=== PATIENT | male | born 1940 | race Caucasian/White ===

== ENCOUNTER → 2017-12-24 10:33 | Outpatient (CLI) | payer MEDICARE, OTHER, SELFPAY ==
[2017-12-24 12:24] LABS: Anion Gap 10 (5-15); BUN 27 mg/dL (7-18); BUN/Creat Ratio 26.2 RATIO (10-20); Chloride 106 mmol/L (98-107); Cholesterol 135 mg/dL (200); Creatinine, Serum 1.03 mg/dL (0.70-1.30); EST Glomerular Filtration Rate 74 mL/min (>60); Est Glom Filt Rate - Afr Amer 90 mL/min (>60); Glucose 137 mg/dL (74-106); High Density Lipoprotein 35 mg/dL; Potassium 4.6 mmol/L (3.5-5.1); Sodium Level 142 mmol/L (136-145); Triglycerides 197 mg/dL; Very Low Density Lipoprotein 39 mg/dL (5-40)
== END ==
PROVIDERS: Family Provider Family Medicine; PCP Family Medicine; Visit Provider Family Medicine
DX: E11.9 Type 2 diabetes mellitus without complications (principal)
CPT/HCPCS: 36415; 80048; 80061

== ENCOUNTER 2018-06-03 09:00 | Outpatient (RCR) | payer MEDICARE, OTHER, SELFPAY ==
[2018-05-20 10:08] VITALS: BP 124/67; PULSE 18; RESP 18; TEMP 37; BMI 43.0
--- NOTE | 2018-05-20 11:03 | PCM.WC.HP ---
(1) Decubitus ulcer of right buttock, stage 2 Status: Acute Current Visit: Yes Code(s): L89.312 - Pressure ulcer of right buttock, stage 2 (2) Diabetes type 2, controlled Status: Acute Current Visit: Yes Qualifiers: Diabetes mellitus mcc insulin use: without mcc use Code(s): E11.9 - Type 2 diabetes mellitus without complications (3) Chronic pain disorder Status: Chronic Current Visit: Yes Code(s): G89.4 - Chronic pain syndrome (4) Osteoarthritis Status: Chronic Current Visit: Yes Code(s): M19.90 - Unspecified osteoarthritis, unspecified site History of Present Illness Chief Complaint: Follow-up on right buttocks ulcer History of Wound: This is a 77-year-old white obese male who has chronic pain issues on Mobic for his pain. 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 Still superficial and less than 0.1 in depth. Patient sits in a lounge chair and sleeps in his lounge chair all day long he is able to get up and walk but complains that he gets severe pain if he lays in a bed. Patient was not tolerant to laying flat on his left side for the dressings. Varicosities were apparent in the upper thigh and the buttocks area. The ulcer is near the anus on the right buttocks. Past Medical History Past Medical History: Chronic Problems Chronic pain disorder (Chronic) Osteoarthritis (Chronic) Past Medical History: Decubitus ulcer stage II buttocks Allergies/Adverse Reactions: Allergies naproxen [From Naprosyn] Allergy (Unknown, Verified 05/20/18 10:23) Unknown acetaminophen [From Vicodin] Allergy (Verified 05/20/18 10:26) Unknown codeine Allergy (Verified 05/20/18 10:27) Unknown hydrocodone [From Vicodin] Allergy (Verified 05/20/18 10:26) Unknown levofloxacin [From Levaquin] Allergy (Verified 05/20/18 10:26) Unknown sertraline [From Zoloft] Allergy (Verified 05/20/18 10:27) Unknown sulfamethoxazole Allergy (Verified 05/20/18 10:26) Unknown Home Medications: Ambulatory Orders Medication Instructions Recorded Lisinopril/Hydrochlorothiazide 1 tablet PO DAILY 05/20/18 [Zestoretic 20/12.5 Tablet] Meloxicam 15 mg PO DAILY 05/20/18 Metformin HCl [Glucophage] 500 mg PO BIDCM 05/20/18 Metoprolol Tartrate [Lopressor 50 mg PO BID 05/20/18 (Beta Gilbert)] Pravastatin [Pravachol] 80 mg PO QHS 05/20/18 Warfarin [Coumadin ([facility])] 3 mg PO DAILY 05/20/18 Smoking Status: Never smoker Review of Systems Constitutional: Denies: Chills, Fever Eyes: Denies: Blurred vision, Drainage, Pain HEENT: Denies: Difficulty Hearing, Difficulty Swallowing, Sore Throat, Visual Changes Cardiovascular: Denies: Chest Pain, Palpitations, Syncope Respiratory: Denies: Cough, Shortness of Breath Gastrointestinal: Denies: Abdominal Pain, Nausea, Vomiting Genitourinary: Denies: Dysuria, Frequency Musculoskeletal: Denies: Joint Pain, Muscle pain Skin: Reports: - - Decubitus ulcer right buttocks. Denies: Jaundice, Rash Neurological: Denies: Balance problems, Change in Speech, Difficulty swallowing, Focal weakness Psychiatric: Denies: Anxiety, Depression Endocrine: Denies: Change in Body Habitus Hematologic/ Lymphatic: Denies: Adenopathy - Physical Exam Vital Signs Temp Pulse Resp BP 98.6 F 18 L 18 124/67 H 05/20/18 10:08 05/20/18 10:08 05/20/18 10:08 05/20/18 10:08 General: Oriented x3, Cooperative, Well developed HEENT: Atraumatic, PERRLA Oral: Moist Mucosa Neck: Supple, No JVD Lungs: Clear to auscultation, Normal air movement Cardiovascular: Regular rate, Regular Rhythm Abdomen: Bowel Sounds Present, Soft, Non Tender, No Hepato-splenomegaly Extremities: No clubbing, No edema Skin: Ulcer/ Wound - Ulcer stage II right buttocks Wound Measurements and Assessment WC - Nurse 1 - General Ulcer Measurement Start: 05/20/18 10:07 Freq: Status: Active Protocol: Activity Type Activity Date Activity User E-Sign Co-Sign Detail Recorded Client Recorded Date Recorded By Document 05/20/18 10:08 [id number] 05/20/18 10:14 05/20/18 10:08 Wound Center Nurse 1 [Ulcer Assessment] #1- RT BUTTOCK -Combined with other wound No -Current Size (cm) - Length 0.7 -Current Size (cm) - Width 0.4 -Current Size (cm) - Depth 0.2 -Total Square Cm 0.28 -Date of Last Picture (Recall this 05/20/18 field) -Photo Taken Yes -Epithelialization None Present -Tunneling No -Undermining/Tunneling No -Circular Undermining No -Exudate Amt Small (1-33%) -Exudate Type Serosanguineous -Wound Margin Distinct, Outline Attached -Granulation Amt None Present (0 %) -Slough/Fibrin Yes -Necrosis Amt Large (67-100%) -Necrotic Tissue Type Adherent Slough -Texture (Yokasta-wound Skin Appearance) Scarring Rash -Moisture (Yokasta-wound Skin Appearance Dry/Scaly ) -Color (Yokasta-wound Skin Appearance) Erythema -Temperature (Y[place]asta-wound Skin No Abnormality Appearance) (Pt Warm) -Tenderness on Palpation (Yokasta-wound No Skin Appearance) -Ulcer Cleansing Rinsed/ Irrigated with Saline -Foul Odor after Cleansing No -Anesthetic Used 5% Lidocaine Gel WC - Nurse 2 - General Ulcer CM Notes Start: 05/20/18 10:07 Freq: Status: Active Protocol: Activity Type Activity Date Activity User E-Sign Co-Sign Detail Recorded Client Recorded Date Recorded By Document 05/20/18 10:27 MW [id number] 05/20/18 10:31 MW 05/20/18 10:27 Wound Center Nurse 2 [Procedure/Treatment] -Time 10:28 -Correct Patient Yes -Correct Side, Site, Position Yes -Correct Procedure Yes -Procedure Performed Yes -Type of Procedure Debridement -Clinical Debridement Subcutaneous -Post Debridement Size (cm) - Length 0.5 -Post Debridement Size (cm) - Width 0.5 -Post Debridement Size (cm) - Depth 0.1 -Total Square Cm 0.25 -Wound/Ulcer Outcome Not Healed -Ulcer Cleansing Rinsed/ Irrigated with Saline -Foul Odor after Cleansing No -Bioengineered Tissue No -Bleeding Controlled with Pressure -Offloading No -Treatment Response Procedure Tolerated Well [See Physician Procedure note for Specifics] Pain Scale: 0-10 Numeric [Pain] -Is Patient Pain Free? Yes Musculoskeletal: No Tenderness to Palpation of Joints or Extremities Lymphatic: No Cervical, Supraclavicular, or Inguinal Adenopathy Neurological: Cranial nerves II-XII grossly intact, Neuro grossly intact Psych/Mental Status: Normal Affect, Appropriate Debridement Note Post-Debridement Measurements/Treatment WC - Nurse 2 - General Ulcer CM Notes Start: 05/20/18 10:07 Freq: Status: Active Protocol: Activity Type Activity Date Activity User E-Sign Co-Sign Detail Recorded Client Recorded Date Recorded By Document 05/20/18 10:27 MW [id number] 05/20/18 10:31 MW 05/20/18 10:27 Wound Center Nurse 2 #1- RT BUTTOCK -Time 10:28 -Correct Patient Yes -Correct Side, Site, Position Yes -Correct Procedure Yes -Procedure Performed Yes -Type of Procedure Debridement -Clinical Debridement Subcutaneous -Post Debridement Size (cm) - Length 0.5 -Post Debridement Size (cm) - Width 0.5 -Post Debridement Size (cm) - Depth 0.1 -Total Square Cm 0.25 -Wound/Ulcer Outcome Not Healed -Ulcer Cleansing Rinsed/ Irrigated with Saline -Foul Odor after Cleansing No -Bioengineered Tissue No -Bleeding Controlled with Pressure -Offloading No -Treatment Response Procedure Tolerated Well Pain Scale: 0-10 Numeric Is Patient Pain Free? Yes Wound debrided: Buttocks Laterality: Right Wound Grade/Stage: Stage II Type of Debridement: Excisional debridement Anesthesia Used: 5% Lidocaine Gel Depth: Down to and including healthy tissue, in the subcutaneous layer Percentage of wound debrided: 100 Instrument Used: 3mm curette Tissue Removed: Fibrin and some slough Severity: Limited To Skin Breakdown Amount of bleeding with debridement: Mild Patient tolerated procedure well Assessment/Plan Pre-albumin Active Problems Decubitus ulcer of right buttock, stage 2 (Acute) Diabetes type 2, controlled (Acute) Chronic pain disorder (Chronic) Osteoarthritis (Chronic) Assessment: Cubitus ulcer right buttocks stage II. Osteoarthritis. Chronic pain syndrome. Obese Plan: Area with Hibiclens. Apply Xeroform dressing to the buttocks area cover with gauze and tape twice daily. Follow-up in 1 week. Order a pre-albumin on him
--- NOTE | 2018-05-20 11:08 | HP.PCM_ITS ---
(1) Decubitus ulcer of right buttock, stage 2 Status: Acute Current Visit: Yes Code(s): L89.312 - Pressure ulcer of right buttock, stage 2 (2) Diabetes type 2, controlled Status: Acute Current Visit: Yes Qualifiers: Diabetes mellitus half-way insulin use: without half-way use Code(s): E11.9 - Type 2 diabetes mellitus without complications (3) Chronic pain disorder Status: Chronic Current Visit: Yes Code(s): G89.4 - Chronic pain syndrome (4) Osteoarthritis Status: Chronic Current Visit: Yes Code(s): M19.90 - Unspecified osteoarthritis, unspecified site History of Present Illness Chief Complaint: Follow-up on right buttocks ulcer History of Wound: This is a 77-year-old white obese male who has chronic pain issues on Mobic for his pain. 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 Still superficial and less than 0.1 in depth. Patient sits in a lounge chair and sleeps in his lounge chair all day long he is able to get up and walk but complains that he gets severe pain if he lays in a bed. Patient was not tolerant to laying flat on his left side for the dressings. Varic osities were apparent in the upper thigh and the buttocks area. The ulcer is near the anus on the right buttocks. Past Medical History Past Medical History: Chronic Problems Chronic pain disorder (Chronic) Osteoarthritis (Chronic) Past Medical History: Decubitus ulcer stage II buttocks Allergies/Adverse Reactions: Allergies naproxen [From Naprosyn] Allergy (Unknown, Verified 05/20/18 10:23) Unknown acetaminophen [From Vicodin] Allergy (Verified 05/20/18 10:26) Unknown codeine Allergy (Verified 05/20/18 10:27) Unknown hydrocodone [From Vicodin] Allergy (Verified 05/20/18 10:26) Unknown levofloxacin [From Levaquin] Allergy (Verified 05/20/18 10:26) Unknown sertraline [From Zoloft] Allergy (Verified 05/20/18 10:27) Unknown sulfamethoxazole Allergy (Verified 05/20/18 10:26) Unknown Home Medications: Ambulatory Orders Medication Instructions Recorded Lisinopril/Hydrochlorothiazide 1 tablet PO DAILY 05/20/18 [Zestoretic 20/12.5 Tablet] Meloxicam 15 mg PO DAILY 05/20/18 Metformin HCl [Glucophage] 500 mg PO BIDCM 05/20/18 Metoprolol Tartrate [Lopressor 50 mg PO BID 05/20/18 (Beta Gilbert)] Pravastatin [Pravachol] 80 mg PO QHS 05/20/18 Warfarin [Coumadin ([facility])] 3 mg PO DAILY 05/20/18 Smoking Status: Never smoker Review of Systems Constitutional: Denies: Chills, Fever Eyes: Denies: Blurred vision, Drainage, Pain HEENT: Denies: Difficulty Hearing, Difficulty Swallowing, Sore Throat, Visual Changes Cardiovascular: Denies: Chest Pain, Palpitations, Syncope Respiratory: Denies: Cough, Shortness of Breath Gastrointestinal: Denies: Abdominal Pain, Nausea, Vomiting Genitourinary: Denies: Dysuria, Frequency Musculoskeletal: Denies: Joint Pain, Muscle pain Skin: Reports: - - Decubitus ulcer right buttocks. Denies: Jaundice, Rash Neurological: Denies: Balance problems, Change in Speech, Difficulty swallowing, Focal weakness Psychiatric: Denies: Anxiety, Depression Endocrine: Denies: Change in Body Habitus Hematologic/ Lymphatic: Denies: Adenopathy - Physical Exam Vital Signs Temp Pulse Resp BP 98.6 F 18 L 18 124/67 H 05/20/18 10:08 05/20/18 10:08 05/20/18 10:08 05/20/18 10:08 General: Oriented x3, Cooperative, Well developed HEENT: Atraumatic, PERRLA Oral: Moist Mucosa Neck: Supple, No JVD Lungs: Clear to auscultation, Normal air movement Cardiovascular: Regular rate, Regular Rhythm Abdomen: Bowel Sounds Present, Soft, Non Tender, No Hepato-splenomegaly Extremities: No clubbing, No edema Skin: Ulcer/ Wound - Ulcer stage II right buttocks Wound Measurements and Assessment WC - Nurse 1 - General Ulcer Measurement Start: 05/20/18 10:07 Freq: Status: Active Protocol: Activity Type Activity Date Activity User E-Sign Co-Sign Detail Recorded Client Recorded Date Recorded By Document 05/20/18 10:08 [id number] 05/20/18 10:14 05/20/18 10:08 Wound Center Nurse 1 [Ulcer Assessment] #1- RT BUTTOCK -Combined with other wound No -Current Size (cm) - Length 0.7 -Current Size (cm) - Width 0.4 -Current Size (cm) - Depth 0.2 -Total Square Cm 0.28 -Date of Last Picture (Recall this 05/20/18 field) -Photo Taken Yes -Epithelialization None Present -Tunneling No -Undermining/Tunneling No -Circular Undermining No -Exudate Amt Small (1-33%) -Exudate Type Serosanguineous -Wound Margin Distinct, Outline Attached -Granulation Amt None Present (0 %) -Slough/Fibrin Yes -Necrosis Amt Large (67-100%) -Necrotic Tissue Type Adherent Slough -Texture (Yokasta-wound Skin Appearance) Scarring Rash -Moisture (Yokasta-wound Skin Appearance Dry/Scaly ) -Color (Yokasta-wound Skin Appearance) Erythema -Temperature (Yokasta-wound Skin No Abnormality Appearance) (Pt Warm) -Tenderness on Palpation (Yokasta-wound No Skin Appearance) -Ulcer Cleansing Rinsed/ Irrigated with Saline -Foul Odor after Cleansing No -Anesthetic Used 5% Lidocaine Gel WC - Nurse 2 - General Ulcer CM Notes Start: 05/20/18 10:07 Freq: Status: Active Protocol: Activity Type Activity Date Activity User E-Sign Co-Sign Detail Recorded Client Recorded Date Recorded By Document 05/20/18 10:27 MW [id number] 05/20/18 10:31 MW 05/20/18 10:27 Wound Center Nurse 2 [Procedure/Treatment] -Time 10:28 -Correct Patient Yes -Correct Side, Site, Position Yes -Correct Procedure Yes -Procedure Performed Yes -Type of Procedure Debridement -Clinical Debridement Subcutaneous -Post Debridement Size (cm) - Length 0.5 -Post Debridement Size (cm) - Width 0.5 -Post Debridement Size (cm) - Depth 0.1 -Total Square Cm 0.25 -Wound/Ulcer Outcome Not Healed -Ulcer Cleansing Rinsed/ Irrigated with Saline -Foul Odor after Cleansing No -Bioengineered Tissue No -Bleeding Controlled with Pressure -Offloading No -Treatment Response Procedure Tolerated Well [See Physician Procedure note for Specifics] Pain Scale: 0-10 Numeric [Pain] -Is Patient Pain Free? Yes Musculoskeletal: No Tenderness to Palpation of Joints or Extremities Lymphatic: No Cervical, Supraclavicular, or Inguinal Adenopathy Neurological: Cranial nerves II-XII grossly intact, Neuro grossly intact Psych/Mental Status: Normal Affect, Appropriate Debridement Note Post-Debridement Measurements/Treatment WC - Nurse 2 - General Ulcer CM Notes Start: 05/20/18 10:07 Freq: Status: Active Protocol: Activity Type Activity Date Activity User E-Sign Co-Sign Detail Recorded Client Recorded Date Recorded By Document 05/20/18 10:27 MW [id number] 05/20/18 10:31 MW 05/20/18 10:27 Wound Center Nurse 2 #1- RT BUTTOCK -Time 10:28 -Correct Patient Yes -Correct Side, Site, Position Yes -Correct Procedure Yes -Procedure Performed Yes -Type of Procedure Debridement -Clinical Debridement Subcutaneous -Post Debridement Size (cm) - Length 0.5 -Post Debridement Size (cm) - Width 0.5 -Post Debridement Size (cm) - Depth 0.1 -Total Square Cm 0.25 -Wound/Ulcer Outcome Not Healed -Ulcer Cleansing Rinsed/ Irrigated with Saline -Foul Odor after Cleansing No -Bioengineered Tissue No -Bleeding Controlled with Pressure -Offloading No -Treatment Response Procedure Tolerated Well Pain Scale: 0-10 Numeric Is Patient Pain Free? Yes Wound debrided: Buttocks Laterality: Right Wound Grade/Stage: Stage II Type of Debridement: Excisional debridement Anesthesia Used: 5% Lidocaine Gel Depth: Down to and including healthy tissue, in the subcutaneous layer Percentage of wound debrided: 100 Instrument Used: 3mm curette Tissue Removed: Fibrin and some slough Severity: Limited To Skin Breakdown Amount of bleeding with debridement: Mild Patient tolerated procedure well Assessment/Plan Pre-albumin Active Problems Decubitus ulcer of right buttock, stage 2 (Acute) Diabetes type 2, controlled (Acute) Chronic pain disorder (Chronic) Osteoarthritis (Chronic) Assessment: Cubitus ulcer right buttocks stage II. Osteoarthritis. Chronic pain syndrome. Obese Plan: Area with Hibiclens. Apply Xeroform dressing to the buttocks area cover with gauze and tape twice daily. Follow-up in 1 week. Order a pre-albumin on him
[2018-05-27 08:36] VITALS: BP 128/74; PULSE 106; RESP 18; TEMP 36.8; BMI 43.0
--- NOTE | 2018-05-27 09:56 | PCM.WC.PN ---
(1) Decubitus ulcer of right buttock, stage 2 Status: Acute Current Visit: Yes Code(s): L89.312 - Pressure ulcer of right buttock, stage 2 (2) Diabetes type 2, controlled Status: Acute Current Visit: Yes Qualifiers: Diabetes mellitus penitentiary insulin use: without penitentiary use Code(s): E11.9 - Type 2 diabetes mellitus without complications (3) Chronic pain disorder Status: Chronic Current Visit: Yes Code(s): G89.4 - Chronic pain syndrome (4) Osteoarthritis Status: Chronic Current Visit: Yes Code(s): M19.90 - Unspecified osteoarthritis, unspecified site Type of Wound Chief Complaint: Follow-up on right buttocks ulcer History of Wound: This is a 77-year-old white obese male who has chronic pain issues on Mobic for his pain. 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 Still superficial and less than 0.1 in depth. Patient sits in a lounge chair and sleeps in his lounge chair all day long he is able to get up and walk but complains that he gets severe pain if he lays in a bed. Patient was not tolerant to laying flat on his left side for the dressings. Varicosities were apparent in the upper thigh and the buttocks area. The ulcer is near the anus on the right buttocks. Progress of Wound: Today the stage II decubitus ulcer on the right buttocks is much smaller he states that it does not burn as much and the pain is much more tolerant. Healing well was 0.2 is down to 0.1 and dimensions are smaller no maceration noted. - Physical Exam Vital Signs Temp Pulse Resp BP 98.2 F 106 H 18 128/74 H 05/27/18 08:36 05/27/18 08:36 05/27/18 08:36 05/27/18 08:36 General: Oriented x3, Cooperative, Well developed HEENT: Atraumatic, PERRLA Oral: Moist Mucosa Neck: Supple, No JVD Lungs: Clear to auscultation, Normal air movement Cardiovascular: Regular rate, Regular Rhythm Abdomen: Bowel Sounds Present, Soft, Non Tender, No Hepato-splenomegaly Extremities: No clubbing, No edema Skin: Ulcer/ Wound - Decubitus ulcer stage II right buttocks Wound Measurements and Assessment WC - Nurse 1 - General Ulcer Measurement Start: 12/14/18 10:07 Freq: Status: Active Protocol: Activity Type Activity Date Activity User E-Sign Co-Sign Detail Recorded Client Recorded Date Recorded By Document 05/27/18 08:36 CS [id number] 05/27/18 08:38 CS 05/27/18 08:36 Wound Center Nurse 1 [Ulcer Assessment] #1- RT BUTTOCK -Combined with other wound No -Current Size (cm) - Length 0.4 -Current Size (cm) - Width 0.4 -Current Size (cm) - Depth 0.1 -Total Square Cm 0.16 -Photo Taken No -Epithelialization None Present -Tunneling No -Undermining/Tunneling No -Circular Undermining No -Exudate Amt Small (1-33%) -Exudate Type Serosanguineous -Wound Margin Distinct, Outline Attached -Granulation Amt Large (67-100%) -Granulation Quality Pale [place] -Slough/Fibrin Yes -Necrosis Amt Small (1-33%) -Necrotic Tissue Type Adherent Slough -Texture (Yokasta-wound Skin Appearance) No Abnormality Assessed -Moisture (Yokasta-wound Skin Appearance No Abnormality ) Assessed -Color (Yokasta-wound Skin Appearance) Assessed -Temperature (Yokasta-wound Skin No Abnormality Appearance) (Pt Warm) -Tenderness on Palpation (Yokasta-wound No Skin Appearance) -Ulcer Cleansing Rinsed/ Irrigated with Saline -Foul Odor after Cleansing No -Anesthetic Used 4% Lidocaine Solution [Edema Assessment] -Lower Limb Edema Present NA - Nurse 2 - General Ulcer CM Notes Start: 05/20/18 10:07 Freq: Status: Active Protocol: Activity Type Activity Date Activity User E-Sign Co-Sign Detail Recorded Client Recorded Date Recorded By Document 05/27/18 08:52 MW [id number] 05/27/18 08:54 MW 05/27/18 08:52 Wound Center Nurse 2 [Procedure/Treatment] #1- RT BUTTOCK -Time 08:53 -Correct Patient Yes -Correct Side, Site, Position Yes -Correct Procedure Yes -Procedure Performed Yes -Type of Procedure Debridement -Clinical Debridement Subcutaneous -Post Debridement Size (cm) - Length 0.5 -Post Debridement Size (cm) - Width 0.4 -Post Debridement Size (cm) - Depth 0.1 -Total Square Cm 0.20 -Wound/Ulcer Outcome Not Healed -Ulcer Cleansing Rinsed/ Irrigated with Saline -Foul Odor after Cleansing No -Bioengineered Tissue No -Bleeding Controlled with Pressure -Offloading No -Treatment Response Procedure Tolerated Well [See Physician Procedure note for Specifics] Pain Scale: 0-10 Numeric [Pain] -Is Patient Pain Free? No Musculoskeletal: No Tenderness to Palpation of Joints or Extremities Lymphatic: No Cervical, Supraclavicular, or Inguinal Adenopathy Neurological: Cranial nerves II-XII grossly intact, Neuro grossly intact Psych/Mental Status: Normal Affect, Appropriate Debridement Note Post-Debridement Measurements/Treatment WC - Nurse 2 - General Ulcer CM Notes Start: 05/20/18 10:07 Freq: Status: Active Protocol: Activity Type Activity Date Activity User E-Sign Co-Sign Detail Recorded Client Recorded Date Recorded By Document 05/20/18 10:27 MW [id number] 05/20/18 10:31 MW Document 05/27/18 08:52 MW [id number] 05/27/18 08:54 MW 05/20/18 05/27/18 10:27 08:52 Wound Center Nurse 2 #1- RT BUTTOCK -Time 10:28 08:53 -Correct Patient Yes Yes -Correct Side, Site, Position Yes Yes -Correct Procedure Yes Yes -Procedure Performed Yes Yes -Type of Procedure Debridement Debridement -Clinical Debridement Subcutaneous Subcutaneous -Post Debridement Size (cm) - Length 0.5 0.5 -Post Debridement Size (cm) - Width 0.5 0.4 -Post Debridement Size (cm) - Depth 0.1 0.1 -Total Square Cm 0.25 0.20 -Wound/Ulcer Outcome Not Healed Not Healed -Ulcer Cleansing Rinsed/ Rinsed/ Irrigated with Irrigated with Saline Saline -Foul Odor after Cleansing No No -Bioengineered Tissue No No -Bleeding Controlled with Pressure Pressure -Offloading No No -Treatment Response Procedure Procedure Tolerated Well Tolerated Well Pain Scale: 0-10 Numeric Is Patient Pain Free? Yes No Wound debrided: Decubitus ulcer right buttocks Laterality: Right Wound Grade/Stage: Stage II Type of Debridement: Excisional debridement Anesthesia Used: 4% Lidocaine Solution Depth: Down to and including healthy tissue Percentage of wound debrided: 100 Instrument Used: 3mm curette Tissue Removed: Fibrin Severity: Limited To Skin Breakdown Amount of bleeding with debridement: Mild Bleeding Controlled with: Compression and gauze Patient tolerated procedure well Assessment/Plan Active Problems Decubitus ulcer of right buttock, stage 2 (Acute) Diabetes type 2, controlled (Acute) Chronic pain disorder (Chronic) Osteoarthritis (Chronic) Assessment: decubitus ulcer right buttocks stage II. Osteoarthritis. Chronic pain syndrome. Obese Plan: Area with Hibiclens. Apply Xeroform dressing to the buttocks area cover with gauze and tape daily. Follow-up in 1 week
--- NOTE | 2018-05-27 10:00 | PN.PCM_ITS ---
(1) Decubitus ulcer of right buttock, stage 2 Status: Acute Current Visit: Yes Code(s): L89.312 - Pressure ulcer of right buttock, stage 2 (2) Diabetes type 2, controlled Status: Acute Current Visit: Yes Qualifiers: Diabetes mellitus retirement insulin use: without retirement use Code(s): E11.9 - Type 2 diabetes mellitus without complications (3) Chronic pain disorder Status: Chronic Current Visit: Yes Code(s): G89.4 - Chronic pain syndrome (4) Osteoarthritis Status: Chronic Current Visit: Yes Code(s): M19.90 - Unspecified osteoarthritis, unspecified site Type of Wound Chief Complaint: Follow-up on right buttocks ulcer History of Wound: This is a 77-year-old white obese male who has chronic pain issues on Mobic for his pain. Has a history for emt intermediate of a right buttocks decubitus ulcer. Still superficial and less than 0.1 in depth. Patient sits in a lounge chair and sleeps in his lounge chair all day long he is able to get up and walk but complains that he gets severe pain if he lays in a bed. Patient was not tolerant to laying flat on his left side for the dressings. Varicosities were apparent in the upper thigh and the buttocks area. The ulcer is near the anus on the right buttocks. Progress of Wound: Today the stage II decubitus ulcer on the right buttocks is much smaller he states that it does not burn as much and the pain is much more tolerant. Healing well was 0.2 is down to 0.1 and dimensions are smaller no maceration noted. - Physical Exam Vital Signs Temp Pulse Resp BP 98.2 F 106 H 18 128/74 H 05/27/18 08:36 05/27/18 08:36 05/27/18 08:36 05/27/18 08:36 General: Oriented x3, Cooperative, Well developed HEENT: Atraumatic, PERRLA Oral: Moist Mucosa Neck: Supple, No JVD Lungs: Clear to auscultation, Normal air movement Cardiovascular: Regular rate, Regular Rhythm Abdomen: Bowel Sounds Present, Soft, Non Tender, No Hepato-splenomegaly Extremities: No clubbing, No edema Skin: Ulcer/ Wound - Decubitus ulcer stage II right buttocks Wound Measurements and Assessment WC - Nurse 1 - General Ulcer Measurement Start: 12/14/18 10:07 Freq: Status: Active Protocol: Activity Type Activity Date Activity User E-Sign Co-Sign Detail Recorded Client Recorded Date Recorded By Document 05/27/18 08:36 CS [id number] 05/27/18 08:38 CS 05/27/18 08:36 Wound Center Nurse 1 [Ulcer Assessment] #1- RT BUTTOCK -Combined with other wound No -Current Size (cm) - Length 0.4 -Current Size (cm) - Width 0.4 -Current Size (cm) - Depth 0.1 -Total Square Cm 0.16 -Photo Taken No -Epithelialization None Present -Tunneling No -Undermining/Tunneling No -Circular Undermining No -Exudate Amt Small (1-33%) -Exudate Type Serosanguineous -Wound Margin Distinct, Outline Attached -Granulation Amt Large (67-100%) -Granulation Quality Pale [place] -Slough/Fibrin Yes -Necrosis Amt Small (1-33%) -Necrotic Tissue Type Adherent Slough -Texture (Y[place]asta-wound Skin Appearance) No Abnormality Assessed -Moisture (Y[place]asta-wound Skin Appearance No Abnormality ) Assessed -Color ([place]asta-wound Skin Appearance) Assessed -Temperature ([place]-wound Skin No Abnormality Appearance) (Pt Warm) -Tenderness on Palpation (Y[place]asta-wound No Skin Appearance) -Ulcer Cleansing Rinsed/ Irrigated with Saline -Foul Odor after Cleansing No -Anesthetic Used 4% Lidocaine Solution [Edema Assessment] -Lower Limb Edema Present NA - Nurse 2 - General Ulcer CM Notes Start: 05/20/18 10:07 Freq: Status: Active Protocol: Activity Type Activity Date Activity User E-Sign Co-Sign Detail Recorded Client Recorded Date Recorded By Document 05/27/18 08:52 MW [id number] 05/27/18 08:54 MW 05/27/18 08:52 Wound Center Nurse 2 [Procedure/Treatment] #1- RT BUTTOCK -Time 08:53 -Correct Patient Yes -Correct Side, Site, Position Yes -Correct Procedure Yes -Procedure Performed Yes -Type of Procedure Debridement -Clinical Debridement Subcutaneous -Post Debridement Size (cm) - Length 0.5 -Post Debridement Size (cm) - Width 0.4 -Post Debridement Size (cm) - Depth 0.1 -Total Square Cm 0.20 -Wound/Ulcer Outcome Not Healed -Ulcer Cleansing Rinsed/ Irrigated with Saline -Foul Odor after Cleansing No -Bioengineered Tissue No -Bleeding Controlled with Pressure -Offloading No -Treatment Response Procedure Tolerated Well [See Physician Procedure note for Specifics] Pain Scale: 0-10 Numeric [Pain] -Is Patient Pain Free? No Musculoskeletal: No Tenderness to Palpation of Joints or Extremities Lymphatic: No Cervical, Supraclavicular, or Inguinal Adenopathy Neurological: Cranial nerves II-XII grossly intact, Neuro grossly intact Psych/Mental Status: Normal Affect, Appropriate Debridement Note Post-Debridement Measurements/Treatment WC - Nurse 2 - General Ulcer CM Notes Start: 05/20/18 10:07 Freq: Status: Active Protocol: Activity Type Activity Date Activity User E-Sign Co-Sign Detail Recorded Client Recorded Date Recorded By Document 05/20/18 10:27 MW [id number] 05/20/18 10:31 MW Document 05/27/18 08:52 MW [id number] 05/27/18 08:54 MW 05/20/18 05/27/18 10:27 08:52 Wound Center Nurse 2 #1- RT BUTTOCK -Time 10:28 08:53 -Correct Patient Yes Yes -Correct Side, Site, Position Yes Yes -Correct Procedure Yes Yes -Procedure Performed Yes Yes -Type of Procedure Debridement Debridement -Clinical Debridement Subcutaneous Subcutaneous -Post Debridement Size (cm) - Length 0.5 0.5 -Post Debridement Size (cm) - Width 0.5 0.4 -Post Debridement Size (cm) - Depth 0.1 0.1 -Total Square Cm 0.25 0.20 -Wound/Ulcer Outcome Not Healed Not Healed -Ulcer Cleansing Rinsed/ Rinsed/ Irrigated with Irrigated with Saline Saline -Foul Odor after Cleansing No No -Bioengineered Tissue No No -Bleeding Controlled with Pressure Pressure -Offloading No No -Treatment Response Procedure Procedure Tolerated Well Tolerated Well Pain Scale: 0-10 Numeric Is Patient Pain Free? Yes No Wound debrided: Decubitus ulcer right buttocks Laterality: Right Wound Grade/Stage: Stage II Type of Debridement: Excisional debridement Anesthesia Used: 4% Lidocaine Solution Depth: Down to and including healthy tissue Percentage of wound debrided: 100 Instrument Used: 3mm curette Tissue Removed: Fibrin Severity: Limited To Skin Breakdown Amount of bleeding with debridement: Mild Bleeding Controlled with: Compression and gauze Patient tolerated procedure well Assessment/Plan Active Problems Decubitus ulcer of right buttock, stage 2 (Acute) Diabetes type 2, controlled (Acute) Chronic pain disorder (Chronic) Osteoarthritis (Chronic) Assessment: decubitus ulcer right buttocks stage II. Osteoarthritis. Chronic pain syndrome. Obese Plan: Area with Hibiclens. Apply Xeroform dressing to the buttocks area cover with gauze and tape daily. Follow-up in 1 week
[2018-06-03 08:52] VITALS: BP 126/84; PULSE 103; RESP 18; TEMP 35; BMI 43.0
--- NOTE | 2018-06-03 09:08 | PN.PCM_ITS ---
(1) Decubitus ulcer of right buttock, stage 2 Status: Acute Current Visit: Yes Code(s): L89.312 - Pressure ulcer of right buttock, stage 2 (2) Diabetes type 2, controlled Status: Acute Current Visit: Yes Qualifiers: Diabetes mellitus fci insulin use: without fci use Code(s): E11.9 - Type 2 diabetes mellitus without complications (3) Chronic pain disorder Status: Chronic Current Visit: Yes Code(s): G89.4 - Chronic pain syndrome (4) Osteoarthritis Status: Chronic Current Visit: Yes Code(s): M19.90 - Unspecified osteoarthritis, unspecified site Type of Wound Chief Complaint: Follow-up on right buttocks ulcer History of Wound: This is a 77-year-old white obese male who has chronic pain issues on Mobic for his pain. 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 Still superficial and less than 0.1 in depth. Patient sits in a lounge chair and sleeps in his lounge chair all day long he is able to get up and walk but complains that he gets severe pain if he lays in a bed. Patient was not tolerant to laying flat on his left side for the dressings. Varicosities were apparent in the upper thigh and the buttocks area. The ulcer is near the anus on the right buttocks. Progress of Wound: Today the stage II decubitus ulcer on the right buttocks is healed patient will be discharged from the wound center - Physical Exam Vital Signs Temp Pulse Resp BP 95.0 F L 103 H 18 126/84 H 06/03/18 08:52 06/03/18 08:52 06/03/18 08:52 06/03/18 08:52 General: Oriented x3, Cooperative, Well developed HEENT: Atraumatic, PERRLA Oral: Moist Mucosa Neck: Supple, No JVD Lungs: Clear to auscultation, Normal air movement Cardiovascular: Regular rate, Regular Rhythm Abdomen: Bowel Sounds Present, Soft, Non Tender, No Hepato-splenomegaly Extremities: No clubbing, No edema Skin: Ulcer/ Wound Wound Measurements and Assessment WC - Nurse 1 - General Ulcer Measurement Start: 05/20/18 10:07 Freq: Status: Active Protocol: Activity Type Activity Date Activity User E-Sign Co-Sign Detail Recorded Client Recorded Date Recorded By Document 06/03/18 08:52 [id number] 06/03/18 08:55 CS 06/03/18 08:52 Wound Center Nurse 1 [Ulcer Assessment] #1- RT BUTTOCK -Combined with other wound No -Current Size (cm) - Length 0.1 -Current Size (cm) - Width 0.1 -Current Size (cm) - Depth 0.1 -Total Square Cm 0.01 -Date of Last Picture (Recall this 06/03/18 field) -Photo Taken Yes -Epithelialization Large 67-100% -Temperature ([place]-wound Skin No Abnormality Appearance) (Pt Warm) -Tenderness on Palpation ([place]-wound No Skin Appearance) -Ulcer Cleansing Rinsed/ Irrigated with Saline -Foul Odor after Cleansing No -Anesthetic Used 5% Lidocaine Gel [Edema Assessment] -Lower Limb Edema Present NA WC - Nurse 2 - General Ulcer CM Notes Start: 05/20/18 10:07 Freq: Status: Active Protocol: Activity Type Activity Date Activity User E-Sign Co-Sign Detail Recorded Client Recorded Date Recorded By Document 06/03/18 09:04 MW [id number] 06/03/18 09:06 MW 06/03/18 09:04 Wound Center Nurse 2 [Procedure/Treatment] #1- RT BUTTOCK -Time 09:04 -Correct Patient Yes -Correct Side, Site, Position Yes -Correct Procedure Yes -Procedure Performed No -Post Debridement Size (cm) - Length 0 -Post Debridement Size (cm) - Width 0 -Post Debridement Size (cm) - Depth 0 -Total Square Cm 0 -Wound/Ulcer Outcome Healed- Epithelialized -Ulcer Cleansing Not Cleansed -Foul Odor after Cleansing No -Bleeding Controlled with NA -Offloading No -Treatment Response Procedure Tolerated Well [See Physician Procedure note for Specifics] Pain Scale: 0-10 Numeric [Pain] -Is Patient Pain Free? Yes Musculoskeletal: No Tenderness to Palpation of Joints or Extremities Lymphatic: No Cervical, Supraclavicular, or Inguinal Adenopathy Neurological: Cranial nerves II-XII grossly intact, Neuro grossly intact Psych/Mental Status: Normal Affect, Appropriate Debridement Note Post-Debridement Measurements/Treatment WC - Nurse 2 - General Ulcer CM Notes Start: 05/20/18 10:07 Freq: Status: Active Protocol: Activity Type Activity Date Activity User E-Sign Co-Sign Detail Recorded Client Recorded Date Recorded By Document 05/20/18 10:27 MW [id number] 05/20/18 10:31 MW Document 05/27/18 08:52 MW [id number] 05/27/18 08:54 MW Document 06/03/18 09:04 MW [id number] 06/03/18 09:06 MW 05/20/18 05/27/18 06/03/18 10:27 08:52 09:04 Wound Center Nurse 2 #1- RT BUTTOCK -Time 10:28 08:53 09:04 -Correct Patient Yes Yes Yes -Correct Side, Site, Position Yes Yes Yes -Correct Procedure Yes Yes Yes -Procedure Performed Yes Yes No -Type of Procedure Debridement Debridement -Clinical Debridement Subcutaneous Subcutaneous -Post Debridement Size (cm) - Length 0.5 0.5 0 -Post Debridement Size (cm) - Width 0.5 0.4 0 -Post Debridement Size (cm) - Depth 0.1 0.1 0 -Total Square Cm 0.25 0.20 0 -Wound/Ulcer Outcome Not Healed Not Healed Healed- Epithelialized -Ulcer Cleansing Rinsed/ Rinsed/ Not Cleansed Irrigated with Irrigated with Saline Saline -Foul Odor after Cleansing No No No -Bioengineered Tissue No No -Bleeding Controlled with Pressure Pressure NA -Offloading No No No -Treatment Response Procedure Procedure Procedure Tolerated Well Tolerated Well Tolerated Well Pain Scale: 0-10 Numeric Is Patient Pain Free? Yes No Yes No debridement was completed today Assessment/Plan Active Problems Decubitus ulcer of right buttock, stage 2 (Acute) Diabetes type 2, controlled (Acute) Chronic pain disorder (Chronic) Osteoarthritis (Chronic) Assessment: decubitus ulcer right buttocks stage II resolved. Osteoarthritis. Chronic pain syndrome. Obese Plan: Discharge from the wound center follow-up as needed
--- OUTSIDE RECORDS SUMMARY | 2018-07-06 00:22 | XMS RPT_ITS ---
:1940 Author Organization OHIP Care Team Providers Name Role Phone Natasha Paige CARTON STAPLER-C Attending Unavailable Vladislav Donald Primary Care Unavailable Natasha Paige CARTON STAPLER-C Attending Unavailable Vladislav Donald Primary Care Unavailable Vladislav Donald Attending Unavailable Vladislav Donald Referring Unavailable Vladislav Donald Primary Care Unavailable Perico Mello Attending Unavailable Vladislav Donald Referring Unavailable Vladislav Donald Attending Unavailable Vladislav Donald Primary Care Unavailable Vladislav Donald Attending Unavailable Vladislav Donald Primary Care Unavailable PROBLEMS PROBLEMS No Problem Records FoundPROCEDURES PROCEDURES No Procedure Records FoundRESULTS RESULTS CBC-COMPLETE BLOOD CNT Collected: 06/23/2018 Status: F Source: FILI NO DIFF 11:47 AM [facility] REPOSITORY Order Comment: Order Date: 06/23/17 Order Info: [id number] - CBC TYPE CODE TESTS RESULT OUT OF RANGE REFERENCE UNITS LAB L100.1000 4.4-11.0 K/mm3 Low WBC 3.4 LAB L100.1200 4.6-6.2 M/mm3 Low RBC 4.32 LAB L100.1300 13.0-16.5 g/dl Normal HGB 13.3 LAB L100.1400 40-54 % Normal HCT 42.0 LAB L100.1500 80-94 fL High MCV 97.2 LAB L100.1600 27.0-32.0 pg Normal MCH 30.8 LAB L100.1700 32-36 g/gl Low MCHC 31.7 LAB L100.1810 11.6-14.6 % Normal RDW CV 13.9 LAB L100.1820 35.1-43.9 fl High RDW SD 50.0 LAB L100.1900 150-450 K/mm3 Low PLT 124 LAB L100.2000 6.2-12.0 fl Normal MPV 9.8 Performed By: #### L100.0500, L501.5200, L501.9910 #### [facility] [address] [place], [address] MAGNESIUM Collected: 06/23/2018 Status: F Source: FILI 11:47 AM [facility] REPOSITORY Order Comment: Order Date: 06/23/17 Order Info: [id number] - MG Order Info: 2857-1 - PSA TYPE CODE TESTS RESULT OUT OF RANGE REFERENCE UNITS LAB L501.5200 1.6-2.6 mg/dL Normal MG 1.9 Performed By: #### L100.0500, L501.5200, L501.9910 #### [facility] [address] [place], [address] PSA,TOTAL - ANNUAL Collected: 06/23/2018 Status: F Source: FILI SCREEN 11:47 AM [facility] REPOSITORY Order Comment: Order Date: 06/23/17 Order Info: [id number] - MG Order Info: 2857-1 - PSA TYPE CODE TESTS RESULT OUT OF RANGE REFERENCE UNITS LAB L501.9910 0.00-4.00 ng/mL Normal PSA,TOT 0.54 SCREEN Result Comment: This test was performed using the TPSA assay method for the [employer] chemistry system. Values obtained with different assay methods cannot be used interchangably. When changing PSA assays in the course of monitoring a patient, additional sequential testing should be carried out to confirm baseline values. Performed By: #### L100.0500, L501.5200, L501.9910 #### [facility] [address] [place], [address] WOUND CTR HISTORY Observed: 05/20/2018 Status: F Source: FILI AND PHYSICAL 11:09 AM [facility] REPOSITORY [facility] [address] [place] [address] Wound Ctr History AND Physical 05/20/18 1103 MR#: [id number] Acct: [id number] Name: JOSE ANGEL JONES Rep #: [id number] : 1940 77 From: Natasha Paige CARTON STAPLER-C PCP: Vladislav Donald MD Status: REG RCR Y Location: WC (1) Decubitus ulcer of right buttock, stage 2 Status: Acute Current Visit: Yes Code(s): L89.312 - Pressure ulcer of right buttock, stage 2 (2) Diabetes type 2, controlled Status: Acute Current Visit: Yes Qualifiers: Diabetes mellitus alf insulin use: without projection camera operator use Code(s): E11.9 - Type 2 diabetes mellitus without complications (3) Chronic pain disorder Status: Chronic Current Visit: Yes Code(s): G89.4 - Chronic pain syndrome (4) Osteoarthritis Status: Chronic Current Visit: Yes Code(s): M19.90 - Unspecified osteoarthritis, unspecified site History of Present Illness Chief Complaint: Follow-up on right buttocks ulcer History of Wound: This is a 77-year-old white obese male who has chronic pain issues on Mobic for his pain. 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 Still superficial and less than 0.1 in depth. Patient sits in a lounge chair and sleeps in his lounge chair all day long he is able to get up and walk but complains that he gets severe pain if he lays in a bed. Patient was not tolerant to laying flat on his left side for the dressings. Varicosities were apparent in the upper thigh and the buttocks area. The ulcer is near the anus on the right buttocks. Past Medical History Past Medical History: Chronic Problems Chronic pain disorder (Chronic) Osteoarthritis (Chronic) Past Medical History: Decubitus ulcer stage II buttocks Allergies/Adverse Reactions: Allergies naproxen [From Naprosyn] Allergy (Unknown, Verified 05/20/18 10:23) Unknown acetaminophen [From Vicodin] Allergy (Verified 05/20/18 10:26) Unknown codeine Allergy (Verified 05/20/18 10:27) Unknown hydrocodone [From Vicodin] Allergy (Verified 05/20/18 10:26) Unknown levofloxacin [From Levaquin] Allergy (Verified 05/20/18 10:26) Unknown sertraline [From Zoloft] Allergy (Verified 05/20/18 10:27) Unknown sulfamethoxazole Allergy (Verified 05/20/18 10:26) Unknown Home Medications: Ambulatory Orders Medication Instructions Recorded Lisinopril/Hydrochlorothiazide 1 tablet PO DAILY 05/20/18 [Zestoretic 20/12.5 Tablet] Meloxicam 15 mg PO DAILY 05/20/18 Metformin HCl [Glucophage] 500 mg PO BIDCM 05/20/18 Smoking Status: Never smoker Review of Systems Constitutional: Denies: Chills, Fever Eyes: Denies: Blurred vision, Drainage, Pain HEENT: Denies: Difficulty Hearing, Difficulty Swallowing, Sore Throat, Visual Changes Cardiovascular: Denies: Chest Pain, Palpitations, Syncope Respiratory: Denies: Cough, Shortness of Breath Gastrointestinal: Denies: Abdominal Pain, Nausea, Vomiting Genitourinary: Denies: Dysuria, Frequency Musculoskeletal: Denies: Joint Pain, Muscle pain Skin: Reports: - - Decubitus ulcer right buttocks. Denies: Jaundice, Rash Neurological: Denies: Balance problems, Change in Speech, Difficulty swallowing, Focal weakness Psychiatric: Denies: Anxiety, Depression Endocrine: Denies: Change in Body Habitus Hematologic/ Lymphatic: Denies: Adenopathy - Physical Exam Vital Signs Temp Pulse Resp BP 98.6 F 18 L 18 124/67 H 05/20/18 10:08 05/20/18 10:08 05/20/18 10:08 05/20/18 10:08 General: Oriented x3, Cooperative, Well developed HEENT: Atraumatic, PERRLA Oral: Moist Mucosa Neck: Supple, No JVD Lungs: Clear to auscultation, Normal air movement Cardiovascular: Regular rate, Regular Rhythm Abdomen: Bowel Sounds Present, Soft, Non Tender, No Hepato-splenomegaly Extremities: No clubbing, No edema Skin: Ulcer/ Wound - Ulcer stage II right buttocks Wound Measurements and Assessment WC - Nurse 1 - General Ulcer Measurement Start: 05/20/18 10:07 Freq: Status: Active Protocol: Activity Type Activity Date Activity User E-Sign Co-Sign Detail Recorded Client Recorded Date Recorded By Document 05/20/18 10:08 CS [id number] 05/20/18 10:14 CS Wound Center Nurse 1 [Ulcer Assessment] #1- RT BUTTOCK -Combined with other wound No -Current Size (cm) - Length 0.7 WC - Nurse 2 - General Ulcer CM Notes Start: 05/20/18 10:07 Freq: Status: Active Protocol: Activity Type Activity Date Activity User E-Sign Co-Sign Detail Recorded Client Recorded Date Recorded By Document 05/20/18 10:27 MW [id number] 05/20/18 10:31 MW Musculoskeletal: No Tenderness to Palpation of Joints or Extremities Lymphatic: No Cervical, Supraclavicular, or Inguinal Adenopathy Neurological: Cranial nerves II-XII grossly intact, Neuro grossly intact Psych/Mental Status: Normal Affect, Appropriate Debridement Note Post-Debridement Measurements/Treatment WC - Nurse 2 - General Ulcer CM Notes Start: 05/20/18 10:07 Freq: Status: Active Protocol: Activity Type Activity Date Activity User E-Sign Co-Sign Detail Recorded Client Recorded Date Recorded By Document 05/20/18 10:27 MW [id number] 05/20/18 10:31 MW Wound Center Nurse 2 #1- RT BUTTOCK -Time 10:28 -Correct Patient Yes -Correct Side, Site, Position Yes Wound debrided: Buttocks Laterality: Right Wound Grade/Stage: Stage II Type of Debridement: Excisional debridement Anesthesia Used: 5% Lidocaine Gel Depth: Down to and including healthy tissue, in the subcutaneous layer Percentage of wound debrided: 100 Instrument Used: 3mm curette Tissue Removed: Fibrin and some slough Severity: Limited To Skin Breakdown Amount of bleeding with debridement: Mild Patient tolerated procedure well Assessment/Plan Pre-albumin Active Problems Decubitus ulcer of right buttock, stage 2 (Acute) Diabetes type 2, controlled (Acute) Chronic pain disorder (Chronic) Osteoarthritis (Chronic) Assessment: Cubitus ulcer right buttocks stage II. Osteoarthritis. Chronic pain syndrome. Obese Plan: Area with Hibiclens. Apply Xeroform dressing to the buttocks area cover with gauze and tape twice daily. Follow-up in 1 week. Order a pre-albumin on him 05/20/18 1109 <Electronically signed by Natasha SALDANA> Date Natasha SALDANA CC: Signed BASIC METABOLIC Collected: 12/24/2017 Status: F Source: FILI PROFILE (BMP) 10:35 AM [facility] REPOSITORY Order Comment: Order Date: 09/21/17 Order Info: [id number] - BMP Order Info: 11583-0 - LIPID TYPE CODE TESTS RESULT OUT OF RANGE REFERENCE UNITS LAB L501.0100 74-106 mg/dL High GLU 137 Result Comment: Fasting Glucose result greater than or equal to 126 mg/dL suggests DIABETES MELLITUS per A.D.A. criteria. Please note revised GLUCOSE reference range effective 2017. LAB L501.1000 7-18 mg/dL High BUN 27 LAB L501.1100 0.70-1.30 mg/dL Normal CREAT,SERUM 1.03 Result Comment: The validity of the calculated GFR AND GFRAA in patients over 70 years has not been determined. Clinical correlation is essential. LAB L501.1110 >60 mL/min Normal EST GFR 74 Result Comment: Non- GFR Calc LAB L501.1115 >60 mL/min Normal EST GFR - AA 90 Result Comment: GFR Calc LAB L501.1300 10-20 RATIO High BUN/CRE 26.2 LAB L501.2200 8.5-10.1 mg/dL CA Normal 9.0 LAB L501.5300 136-145 mmol/L NA Normal 142 LAB L501.5600 3.5-5.1 mmol/L K Normal 4.6 LAB L501.5900 98-107 mmol/L CL Normal 106 LAB L501.6100 21.0-32.0 mmol/L Normal CO2 26.0 LAB L501.6200 5-15 Normal GAP 10 Performed By: #### L500.2500, L500.4100 #### [facility] [address] [place], [address] LIPID PROFILE Collected: 12/24/2017 Status: F Source: FILI 10:35 AM [facility] REPOSITORY Order Comment: Order Date: 09/21/17 Order Info: [id number] - BMP Order Info: 91960-8 - LIPID TYPE CODE TESTS RESULT OUT OF RANGE REFERENCE UNITS LAB L501.4900 200 mg/dL Normal CHOL 135 Result Comment: <200 mg/dL Desirable 200-240 mg/dL Borderline >240 mg/dL High Risk LAB L501.5000 mg/dL Normal TRIG 197 Result Comment: The drugs N-Acetylcysteine and Metamizole may falsely depress this assay. Serum Triglycerides Reference Interval Normal <150 mg/dL Borderline high 150 - 199 mg/dL High 200 - 499 mg/dL Very High > or = 500 mg/dL LAB L501.6400 mg/dL Low HDL 35 Result Comment: The drugs N-Acetylcysteine and Metamizole may falsely depress this assay. Reference Range HDL <40 mg/dL Low HDL Cholesterol HDL >or= 60 mg/dL High HDL Cholesterol LAB L501.6500 0-130 mg/dL Normal LDL 61 LAB L501.6600 5-40 mg/dL Normal VLDL 39 Performed By: #### L500.2500, L500.4100 #### [facility] [address] [place], [address] ECHO, COMPLETE W/ Observed: 06/30/2017 Status: F Source: FILI CONTRAST 12:33 PM [facility] REPOSITORY [facility] Cardiovascular Services [address] [place] [address] Echo Complete W/ Contrast 06/30/17 0946 MR#: [id number] Acct: [id number] Name: JOSE ANGEL JONES Rep #: [id number] : 1940 76 From: Perico Mello MD Attending Dr: Vladislav Donald MD Status: REG CLI Ordering Dr: Greyson Donald MD Date: 06/30/17 Location: CVS Sex: M C Admitted: Reason For Study: Afib Procedure This was a 2D Doppler, Color Flow transthoracic echocardiogram. The study was technically difficult. Exam performed in department. Left Ventricle Normal size and thickness. The estimated ejection fraction is 65 %. No regional wall motion abnormalities noted. Right Ventricle Normal size and thickness. Normal systolic function. Atria Normal left atrium. Normal right atrium. Normal atrial septum. Mitral Valve The mitral valve is structurally normal. No prolapse or stenosis seen. Trivial mitral valve insufficiency. Tricuspid Valve Normal tricuspid valve. Trivial tricuspid valve insufficiency. Right ventricular systolic pressure estimated to be 31 mmHg. Aortic Valve Trisinus/trileaflet aortic valve. Pulmonic Valve The pulmonic valve is not well visualized. Great Vessels Normal aortic root. Normal arch. Normal inferior vena cava. Inferior vena cava collapse with sniff. Pericardium/Pleural No pericardial effusion. Medication Definity0.3ml given slow IV push to enhance endocardial definition. MMode/2D Measurements AND Calculations LVIDd: 5.2 cm IVSd: 1.1 cm Ao root diam: 3.4 cm LVIDs: 3.1 cm LVPWd: 0.98 cm LA dimension: 5.4 cm RVDd: 3.4 cm FS: 40.5 % LAV(MOD-bp): 97.3 ml LA A4 area: 26.5 cm2 RA A4 area: 22.8 cm2 LAV(MOD-bp) Indexed: 42.6 ml/m2 LAV(MOD-sp2): 104.9 ml LAV(MOD-sp4): 79.2 ml Doppler Measurements AND Calculations MV E max dexter: 118.3 cm/sec Lat Peak E' Dexter: 8.2 cm/sec Med Peak E' Dexter: 7.7 cm/sec E/E' lat: 14.5 E/E' med: 15.3 Ao V2 max: 148.1 cm/sec LV V1 max: 103.1 cm/sec PA V2 max: 91.1 cm/sec Ao max P.8 mmHg LV V1 max P.3 mmHg Ao V2 mean: 96.9 cm/sec Ao mean P.2 mmHg Ao V2 VTI: 27.3 cm TR max dexter: 248.4 cm/sec TR max P.7 mmHg Interpretation Summary The estimated ejection fraction is 65 %. Trivial mitral valve insufficiency. Trivial tricuspid valve insufficiency. Right ventricular systolic pressure estimated to be 31 mmHg. Compared to echo report dated 09/03/2010, no appreciable changes noted. The study was technically difficult. Contrast injection was performed. Ordering Physician: Vladislav Donald Referring Physician: Vladislav Donald Performed By: Rissa Riggs RDCS, RVT 06/30/17 1232 Date Perico Mello MD CC: Vladislav Donald MD Date Dictated: 06/30/17 0946 Date Transcribed: 06/30/17 1232 Manager Field Services: Signed ALLERGIES ALLERGIES DATE TYPE / CODE NAME / CODE REACTION SEVERITY SOURCE 05/20/2018 Drug codeine/F006 Unknown Unknown [facility] Allergy/4160 236013([facility] 64090(SNOMED M) Repository CT) 05/20/2018 Drug hydrocodone/ Unknown Unknown [facility] Allergy/4160 [id number](R Hospital 10467(SNOMED XNORM) Repository CT) 05/20/2018 Drug acetaminophe Unknown Unknown [place] [facility] Allergy/4160 n/[id number] [facility] 76128(SNOMED (RXNORM) Repository CT) 05/20/2018 Drug naproxen/F00 Unknown Unknown [place] [facility] Allergy/4160 2185748(RXNO [facility] 00042(SNOMED RM) Repository CT) 05/20/2018 Drug sulfamethoxa Unknown Unknown [facility] Allergy/4160 zole/[id number] Hospital 39896(SNOMED 827(RXNORM) Repository CT) 05/20/2018 Drug sertraline/F Unknown Unknown [place] [facility] Allergy/4160 [id number](RX Hospital 65459(SNOMED NORM) Repository CT) 05/20/2018 Drug levofloxacin Unknown Unknown [facility] Allergy/4160 /[id number]( Hospital 03264(SNOMED RXNORM) Repository CT) ENCOUNTERS ENCOUNTERS ADMIT/DISCHARGE ACCOUNT ADMITTING ENCOUNTER LOCATION SOURCE NUMBER CLASS 06/23/2018 [id number] Ambulatory [place] [address] [facility] ing:PLAB Repository 06/17/2018 [id number] Ambulatory [place] [facility] [address] [facility] ing:WC Repository 06/03/2018/ [id number] Ambulatory [place] [address] [facility] ing:WC Repository 12/24/2017 [id number] Ambulatory [place] [address] [facility] ing:MFPLAB Repository 06/30/2017 [id number] Ambulatory [place] [address] [facility] ing:[facility] Repository 06/30/2017 [id number] Ambulatory BMSBuilding:W [facility] Repository PAYERS PAYERS ENCOUNTER GUARANTOR PAYER SUBSCRIBER SOURCE 06/23/2018 Jose Angel [id number] Primary Jose Angel [place] Insurance:MEDICARE RobertDOB: [place], [place] [facility] [id number] [facility] [address]Pdm: (330) Number: Repository [phone] () [id number] Date:2018-06-23 06/23/2018 Secondary Jose Angel Penn Insurance:CIGNAPolic MooreDOB: Community y Number: [id number] Hospital [id number] Repository Date:5632-07-16PM [address], [place] [address]WG: 06/23/2018 Tertiary NOT GIVENUNK [place] Insurance:SELF PAY [facility] Number: Effective Repository Date:2018-06-23 06/17/2018 Jose Angel Bruce82 Primary Jose Angel Jacobsen Insurance:MEDICARE MooreDOB: Community [place], [place] PART [place] [id number] [id number]: (330) Number: Repository [phone] () [id number] Date:2018-05-16 06/17/2018 Secondary Jose Angel Penn Insurance:CIGNAPolic RobertDOB: Community y Number: [id number] [facility] [id number] Repository Date:3236-30-27[address], [place] [address]OW: 06/17/2018 Tertiary NOT GIVENUNK [place] Insurance:SELF PAY [facility] Number: Effective Repository Date:2018-06-07 06/03/2018 Jose Angel Bruce82 Primary Jose Angel Jacobsen Insurance:MEDICARE MooreDOB: Community [place] PART [place] [id number] [id number]: (330) Number: Repository [phone] () [id number] Date:2018-05-16 06/03/2018 Secondary Jose Angel Penn Insurance:CIGNAPolic MooreDOB: Community y Number: [id number] Hospital [id number] Repository Date:3580-51-38[address], [place] [address]QJ: 06/03/2018 Tertiary NOT GIVENUNK [place] Insurance:SELF PAY [facility] Number: Effective Repository Date:2018-05-16 12/24/2017 Jose Angel Jones3382 Primary Jose Angel [place] Insurance:MEDICARE MooreDOB: Community [facility], [place] PART A [facility] [id number] Hospital [address]Wey: (330) Number: Repository [phone] () [id number] Date:2017-12-24 12/24/2017 Secondary Jose Angel Robert [place] Insurance:CIGNAPolic MooreDOB: Community y Number: [id number] Hospital [id number] Repository Date:6716-37-50[address], [place] [address]CC: 12/24/2017 Tertiary NOT GIVENUNK [place] Insurance:SELF PAY [facility] Number: Effective Repository Date:2017-12-24 06/30/2017 Jose Angel [id number] Primary Jose Angel Jacobsen Insurance:MEDICARE MooreDOB: [place], [place] PART A [facility] [id number] [id number]: (330) Number: Repository [phone] () [id number] Date:2017-06-25 06/30/2017 Secondary Jose Angel Penn Insurance:CIGNAPolic RobertDOB: Community y Number: [id number] Hospital [id number] Repository Date:7895-85-03LM [address]QMF[place]NG[place], [place] [address]HP: 06/30/2017 Tertiary NOT GIVENUNK [place] Insurance:SELF PAY [facility] Number: Effective Repository Date:2017-06-25 06/30/2017 Jose Angel [id number] Primary Jose Angel [place] Insurance:MEDICARE MooreDOB: [facility] [place] PART A [facility] [id number] Hospital [address]Vpe: (330) Number: Repository [phone] () [id number] Date:2017-06-25 06/30/2017 Secondary Jose Angel Robert [place] Insurance:CIGNAPolic RobertDOB: Community y Number: [id number] Hospital [id number] Repository Date:9383-95-68QF [address], [place] [address]NW: 06/30/2017 Tertiary NOT GIVENIVY [place] Insurance:SELF PAY [facility] Number: Effective Repository Date:2017-06-30
== END 2018-06-06 23:59 ==
LOC: WC 09:00
PROVIDERS: Family Provider Family Medicine; PCP Family Medicine; Visit Provider Nurse Practitioner
DX: E11.622 Type 2 diabetes mellitus with other skin ulcer (principal); L89.312 Pressure ulcer of right buttock, stage 2; G89.4 Chronic pain syndrome; M19.90 Unspecified osteoarthritis, unspecified site
CPT/HCPCS: 11042; 99212; 99213; G0463

== ENCOUNTER → 2018-06-23 11:46 | Outpatient (CLI) | payer MEDICARE, OTHER, SELFPAY ==
[2018-06-03 08:52] VITALS: BMI 43.0
[2018-06-23 14:08] LABS: Hemoglobin 13.3 g/dl (13.0-16.5); Mean Corp Hgb Conc 31.7 g/gl (32-36); Mean Corpuscular Hgb 30.8 pg (27.0-32.0); Mean Corpuscular Volume 97.2 fL (80-94); Mean Platelet Vol. 9.8 fl (6.2-12.0); Platelet Count 124 K/mm3 (150-450); RBC Distribution Width CV 13.9 % (11.6-14.6); Red Blood Count 4.32 M/mm3 (4.6-6.2); White Blood Count 3.4 K/mm3 (4.4-11.0)
[2018-06-23 14:09] LABS: Scan Indicated on CBC? Y/N NO
[2018-06-23 14:27] LABS: Magnesium 1.9 mg/dL (1.6-2.6); PSA,Total - Annual Screen 0.54 ng/mL (0.00-4.00)
--- OUTSIDE RECORDS SUMMARY | 2018-08-28 03:24 | XMS RPT_ITS ---
:1940 Author Organization OHIP Care Team Providers Name Role Phone Natasha Paige PRESSING MACHINE OPERATOR-C Attending Unavailable Vladislav Donald Primary Care Unavailable Natasha Paige PRESSING MACHINE OPERATOR-C Attending Unavailable Vladislav Donald Primary Care Unavailable Vladislav Donald Attending Unavailable Vladislav Donald Primary Care Unavailable Vladislav Donald Attending Unavailable Vladislav Donald Primary Care Unavailable Vladislav Donald Attending Unavailable [facility] Primary Care Unavailable PROBLEMS PROBLEMS No Problem Records FoundPROCEDURES PROCEDURES No Procedure Records FoundRESULTS RESULTS TESTOSTERONE, SERUM TOTAL Collected: 06/30/2018 Status: F Source: FILI 9:58 AM [facility] REPOSITORY TYPE CODE TESTS RESULT OUT OF REFERENCE UNITS RANGE LAB L509.3000 ng/dL Testosterone Normal 133.66 Result Comment: NORMAL REFERENCE RANGES MALE AGE <50 123.06 - 813.86 ng/dL MALE AGE >50 89.98 - 780.10 ng/dL FEMALE PREMENOPAUSE AGE 21 - 60 9.01 - 47.94 ng/dL FEMALE POSTMENOPAUSE AGE 45 - 89 <7.00 - 45.62 ng/dL REFERENCE RANGE AND METHODOLOGY CHANGED 05/26/2017 Performed By: #### L509.3000 #### [facility] [address] [place], [address] COMPREHENSIVE METABOLIC Collected: 06/30/2018 Status: F Source: FILI BARNEY 9:58 AM [facility] REPOSITORY TYPE CODE TESTS RESULT OUT OF RANGE REFERENCE UNITS LAB L501.0100 74-106 mg/dL High GLU 122 Result Comment: Fasting Glucose result from 100 to 125 mg/dL suggests IMPAIRED HOMEOSTASIS per A.D.A. criteria. Please note revised GLUCOSE reference range effective 2017. LAB L501.1000 7-18 mg/dL High BUN 23 LAB L501.1100 0.70-1.30 mg/dL Normal CREAT,SERUM 1.01 Result Comment: The validity of the calculated GFR AND GFRAA in patients over 70 years has not been determined. Clinical correlation is essential. LAB L501.1110 >60 mL/min Normal EST GFR 76 Result Comment: Non- GFR Calc LAB L501.1115 >60 mL/min Normal EST GFR - AA 92 Result Comment: GFR Calc LAB L501.1300 10-20 RATIO High BUN/CRE 22.8 LAB L501.1500 6.4-8.2 g/dL T Normal PROT 7.0 LAB L501.1800 3.2-5.0 g/dL Normal ALB 3.9 LAB L501.1950 2.2-4.2 g/dL Normal GLOB 3.1 LAB L501.2000 0.9-2.4 RATIO Normal A/G 1.3 LAB L501.2200 8.5-10.1 mg/dL Low CA 8.3 LAB L501.4100 15-37 U/L Normal AST 17 LAB L501.4305 45-117 U/L Normal ALK P 53 LAB L501.4405 16-61 U/L Normal ALT 30 LAB L501.4600 0.20-1.00 mg/dL T Normal BILI 0.80 LAB L501.5300 136-145 mmol/L NA Normal 144 LAB L501.5600 3.5-5.1 mmol/L K Normal 4.4 LAB L501.5900 98-107 mmol/L High CL 108 LAB L501.6100 21.0-32.0 mmol/L Normal CO2 26.0 LAB L501.6200 5-15 Normal GAP 10 Performed By: #### L500.4050, L500.4100, L501.9520 #### [facility] [address] [place], [address] LIPID PROFILE Collected: 06/30/2018 Status: F Source: FILI 9:58 AM [facility] REPOSITORY TYPE CODE TESTS RESULT OUT OF RANGE REFERENCE UNITS LAB L501.4900 200 mg/dL Normal CHOL 129 Result Comment: <200 mg/dL Desirable 200-240 mg/dL Borderline >240 mg/dL High Risk LAB L501.5000 mg/dL Normal TRIG 152 Result Comment: The drugs N-Acetylcysteine and Metamizole may falsely depress this assay. Serum Triglycerides Reference Interval Normal <150 mg/dL Borderline high 150 - 199 mg/dL High 200 - 499 mg/dL Very High > or = 500 mg/dL LAB L501.6400 mg/dL Low HDL 37 Result Comment: The drugs N-Acetylcysteine and Metamizole may falsely depress this assay. Reference Range HDL <40 mg/dL Low HDL Cholesterol HDL >or= 60 mg/dL High HDL Cholesterol LAB L501.6500 0-130 mg/dL Normal LDL 62 LAB L501.6600 5-40 mg/dL Normal VLDL 30 Performed By: #### L500.4050, L500.4100, L501.9520 #### [facility] [address] [place], [place], [id number] THYROID STIM HORMONE Collected: 06/30/2018 Status: F Source: FILI (TSH) 9:58 AM [facility] REPOSITORY TYPE CODE TESTS RESULT OUT OF RANGE REFERENCE UNITS LAB L501.9520 0.358-3.74 uIU/mL Normal TSH 1.64 Performed By: #### L500.4050, L500.4100, L501.9520 #### [facility] [address] [place], [place], [address] CBC-COMPLETE BLOOD CNT Collected: 06/23/2018 Status: F Source: FILI NO DIFF 11:47 AM [facility] REPOSITORY Order Comment: Order Date: 06/23/17 Order Info: 13336-3 - CBC TYPE CODE TESTS RESULT OUT [...] Performed By: #### L100.0500, L501.5200, L501.9910 #### [facility] [address] [place], [place], [address] MAGNESIUM Collected: 06/23/2018 Status: F Source: FILI 11:47 AM [facility] REPOSITORY Order Comment: Order Date: 06/23/17 Order Info: 14930-5 - MG Order Info: 2857-1 - PSA TYPE CODE TESTS RESULT OUT OF RANGE REFERENCE UNITS LAB L501.5200 1.6-2.6 mg/dL Normal MG 1.9 Performed By: #### L100.0500, L501.5200, L501.9910 #### [facility] [address] [place], [place], [address] PSA,TOTAL - ANNUAL Collected: 06/23/2018 Status: F Source: FILI SCREEN 11:47 AM [facility] REPOSITORY Order Comment: Order Date: 06/23/17 Order Info: [id number] - MG Order Info: 2857-1 - PSA TYPE CODE TESTS RESULT OUT OF RANGE REFERENCE UNITS LAB L501.9910 0.00-4.00 ng/mL Normal PSA,TOT 0.54 SCREEN Result Comment: This test was performed using the TPSA assay method for the [employer] chemistry system. Values obtained with different assay methods cannot be used interchangably. When changing PSA assays in the course of monitoring a patient, additional sequential testing should be carried out to confirm baseline values. Performed By: #### L100.0500, L501.5200, L501.9910 #### [facility] [address] [place], [address] WOUND CTR HISTORY Observed: 05/20/2018 Status: F Source: FILI AND PHYSICAL 11:09 AM [facility] REPOSITORY [facility] [address] [place] [address] Wound Ctr History AND Physical 05/20/18 1103 MR#: [id number] Acct: [id number] Name: JOSE ANGEL JONES Rep #: [id number] : 1940 77 From: Natasha Paige PRESSING MACHINE OPERATOR-C PCP: Vladislav Donald MD Status: REG RCR Y Location: WC (1) Decubitus ulcer of right buttock, stage 2 Status: Acute Current Visit: Yes Code(s): L89.312 - Pressure ulcer of right buttock, stage 2 (2) Diabetes type 2, controlled Status: Acute Current Visit: Yes Qualifiers: Diabetes mellitus senior living insulin use: without remote computer terminal operator use Code(s): E11.9 - Type 2 [...] for his pain. Has a history for remote computer terminal operator of a right buttocks decubitus ulcer. [...] Date Recorded By Document 05/20/18 10:08 CS [id number] 05/20/18 10:14 CS Wound Center Nurse 1 [Ulcer Assessment] #1- RT BUTTOCK -Combined with other wound No -Current Size (cm) - Length 0.7 WC - Nurse 2 - General Ulcer CM Notes Start: 05/20/18 10:07 Freq: Status: Active Protocol: Activity Type Activity Date Activity User E-Sign Co-Sign Detail Recorded Client Recorded Date Recorded By Document 05/20/18 10:27 MW [id number] 05/20/18 10:31 MW Musculoskeletal: No Tenderness to [...] Date Recorded By Document 05/20/18 10:27 MW [id number] 05/20/18 10:31 MW Wound Center Nurse 2 [...] F Source: FILI PROFILE (BMP) 10:35 AM [facility] REPOSITORY Order Comment: Order Date: 09/21/17 Order Info: [id number] - BMP Order Info: 88076-4 - LIPID TYPE CODE TESTS RESULT OUT [...] 10 Performed By: #### L500.2500, L500.4100 #### [facility] [address] [place], [address] LIPID PROFILE Collected: 12/24/2017 Status: F Source: FILI 10:35 AM [facility] REPOSITORY Order Comment: Order Date: 09/21/17 Order Info: 0667-1 - BMP Order Info: 49493-6 - LIPID TYPE CODE TESTS RESULT OUT [...] 39 Performed By: #### L500.2500, L500.4100 #### [facility] [address] [place], [address] ALLERGIES ALLERGIES DATE TYPE / CODE NAME / CODE REACTION SEVERITY SOURCE 05/20/2018 Drug codeine/F006 Unknown Unknown [facility] Allergy/4160 822419(RXNOR Hospital 38818(SNOMED M) Repository CT) 05/20/2018 Drug hydrocodone/ Unknown Unknown [facility] Allergy/4160 [id number]( Hospital 24558(SNOMED XNORM) Repository CT) 05/20/2018 Drug acetaminophe Unknown Unknown [facility] Allergy/4160 n/[id number] Hospital 06332(SNOMED (RXNORM) Repository CT) 05/20/2018 Drug naproxen/F00 Unknown Unknown [facility] Allergy/4160 7883994(RXNO Hospital 80853(SNOMED RM) Repository CT) 05/20/2018 Drug sulfamethoxa Unknown Unknown [facility] Allergy/4160 zole/[id number] Hospital 90138(SNOMED 827(RXNORM) Repository CT) 05/20/2018 Drug sertraline/F Unknown Unknown [place] [facility] Allergy/4160 138518731(RX Hospital 75890(SNOMED NORM) Repository CT) 05/20/2018 Drug levofloxacin Unknown Unknown [place] [facility] Allergy/4160 /[id number]( Hospital 37038(SNOMED RXNORM) Repository CT) ENCOUNTERS ENCOUNTERS ADMIT/DISCHARGE ACCOUNT ADMITTING ENCOUNTER LOCATION SOURCE NUMBER CLASS 06/30/2018 [id number] Ambulatory [place] 7 [facility] ing:MFPLAB Repository 06/23/2018 [id number] [place] [facility] ing:MFPLAB Repository 06/17/2018 [id number] Ambulatory [place] 0 [facility] ing:WC Repository 06/03/2018/ [id number] Ambulatory [place] 8 5 [facility] ing:WC Repository 12/24/2017 [id number] Ambulatory [place] 1 [facility] ing:PLAB Repository PAYERS PAYERS ENCOUNTER GUARANTOR PAYER SUBSCRIBER SOURCE 06/30/2018 Jose Angel [id number] Primary Jose Angel Robert [place] Insurance:MEDICARE [place]OB: [place], [place] PART A BPolicy [id number] Hospital [address]Gqy: (330) Number: Repository [phone] (HP) [id number] Date:2018-06-30 06/30/2018 Secondary Jose Angel T [place] [facility] Community y Number: [id number] Hospital [id number] Repository Date:0561-64-15[address], [place] [address]LA: 06/30/2018 Tertiary NOT GIVENUNK [place] Insurance:SELF PAY [facility] Number: Effective Repository Date:2018-06-30 06/23/2018 Jose Angel [id number] Primary [place] Angel [place] Insurance:MEDICARE [place]DOB: Community [place], [place] PART A olicy [id number] [facility] [address]Epx: (330) Number: Repository [phone] () [id number] Date:2018-06-23 06/23/2018 Secondary Jose Angel Shin Insurance:CIGNAPolic MooreDOB: Community y Number: [id number] Hospital [id number] Repository Date:0176-24-91[address], [place] [address]KT: 06/23/2018 Tertiary NOT GIVENUNK [place] Insurance:SELF PAY [facility] Number: Effective Repository Date:2018-06-23 06/17/2018 Jose Angel Jones3382 Primary Jose Angel [place] Insurance:MEDICARE MooreDOB: [place] PART A [facility] [id number] [id number]: (330) Number: Repository [phone] () [id number] Date:2018-05-16 06/17/2018 Secondary Jose Angel Jones [place] Insurance:CIGNAPolic MooreDOB: Community y Number: [id number] Hospital [id number] Repository Date:1864-95-05[address], [place] [address]WP: 06/17/2018 Tertiary NOT GIVENUNK [place] Insurance:SELF PAY [facility] Number: Effective Repository Date:2018-06-07 06/03/2018 Joes Angel [id number] Primary Jose Angel [place] Insurance:MEDICARE MooreDOB: Community [place] PART A olic [id number] Hospital [address]Hzw: (330) Number: Repository [phone] () [id number] Date:2018-05-16 06/03/2018 Secondary Jose Angel Robert [place] Insurance:CIGNAPolic MooreDOB: Community y Number: [id number] Hospital [id number] Repository Date:8590-53-25[address], [place] [address]KW: 06/03/2018 Tertiary NOT GIVENUNK [place] Insurance:SELF PAY [facility] Number: Effective Repository Date:2018-05-16 12/24/2017 Jose Angel [id number] Primary Jose Angel Shin [place] Insurance:MEDICARE [place] BPolicy [id number] Hospital [address]Vha: (330) Number: Repository [phone] () [id number] Date:2017-12-24 12/24/2017 Secondary Jose Angel Shin Insurance:CIGNAPolic MooreDOB: Community y Number: [id number] Hospital [id number] Repository Date:4682-15-73GZ [facility] [address]WF, [place] [address]SX: 12/24/2017 Tertiary NOT GIVENUNK [place] Insurance:SELF PAY [facility] Number: Effective Repository Date:2017-12-24
== END ==
PROVIDERS: Family Provider Family Medicine; PCP Family Medicine; Visit Provider Family Medicine
DX: I48.91 Unspecified atrial fibrillation (principal); N40.1 Benign prostatic hyperplasia with lower urinary tract symptoms; Z12.5 Encounter for screening for malignant neoplasm of prostate
CPT/HCPCS: 36415; 83735; 84153; 85027; G0103

== ENCOUNTER → 2018-06-30 09:55 | Outpatient (CLI) | payer MEDICARE, OTHER, SELFPAY ==
[2018-06-03 08:52] VITALS: BMI 43.0
[2018-06-30 12:35] LABS: ALB/GLOB Ratio 1.3 RATIO (0.9-2.4); AST(SGOT) 17 U/L (15-37); Alanine Aminotransfer ALT/SGPT 30 U/L (16-61); Albumin, Serum 3.9 g/dL (3.2-5.0); Alkaline Phosphatase 53 U/L (45-117); Anion Gap 10 (5-15); BUN 23 mg/dL (7-18); BUN/Creat Ratio 22.8 RATIO (10-20); Calcium,Total 8.3 mg/dL (8.5-10.1); Chloride 108 mmol/L (98-107); Cholesterol 129 mg/dL (200); Creatinine, Serum 1.01 mg/dL (0.70-1.30); EST Glomerular Filtration Rate 76 mL/min (>60); Est Glom Filt Rate - Afr Amer 92 mL/min (>60); Globulin 3.1 g/dL (2.2-4.2); Glucose 122 mg/dL (74-106); High Density Lipoprotein 37 mg/dL; Potassium 4.4 mmol/L (3.5-5.1); Sodium Level 144 mmol/L (136-145); Thyroid Stim Hormone (TSH) 1.64 uIU/mL (0.358-3.74); Triglycerides 152 mg/dL; Very Low Density Lipoprotein 30 mg/dL (5-40)
== END ==
PROVIDERS: Family Provider Family Medicine; PCP Family Medicine; Visit Provider Family Medicine
DX: E11.9 Type 2 diabetes mellitus without complications (principal); I10 Essential (primary) hypertension
CPT/HCPCS: 80053; 80061; 84403; 84443

== ENCOUNTER 2018-09-02 10:00 | Outpatient (RCR) | payer MEDICARE, OTHER, SELFPAY ==
[2018-08-19 09:40] VITALS: BP 150/89; PULSE 56; RESP 16; TEMP 36.6; BMI 43.0
--- NOTE | 2018-08-19 11:26 | PCM.WC.HP ---
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 (2) Diabetes type 2, controlled Status: Chronic Current Visit: Yes Code(s): E11.9 - Type 2 diabetes mellitus without complications (3) Osteoarthritis Status: Chronic Current Visit: Yes Code(s): M19.90 - Unspecified osteoarthritis, unspecified site (4) Traumatic skin ulcer with fat layer exposed Status: Acute Current Visit: Yes Code(s): L98.492 - Non-pressure chronic ulcer of skin of other sites with fat layer exposed (5) Edema of lower extremity Status: Acute Current Visit: Yes Code(s): R60.0 - Localized edema (6) Cellulitis of lower extremity Status: Acute Current Visit: Yes Code(s): L03.119 - Cellulitis of unspecified part of limb (7) Nonhealing nonsurgical wound with fat layer exposed Status: Acute Current Visit: Yes Code(s): T14.8XXA - Other injury of unspecified body region, initial encounter History of Present Illness Date of Service: 08/19/18 Chief Complaint: Follow-up on a traumatic right lower extremity partial avulsion laceration from a Shovel excellently 6 weeks ago. Has been seeing his family doctor and just putting gauze dressings on. Patient referred himself for nonhealing History of Wound: 78-year-old white male on blood thinners for an unknown reason. Patient was cleaning out his car and was taking a plastic shovel out in a gouged his right lateral lower leg approximately 6 weeks ago has been seeing his family doctor without improvement. Referred himself here has just been using gauze dressings. Uvulitis is noted around very tender and burning pain complaints lower extremity edema also noted. Last ABIs were done in 2013 we will repeat and culture the old open wound. Past Medical History Past Medical History: Chronic Problems Diabetes type 2, controlled (Chronic) Chronic pain disorder (Chronic) Osteoarthritis (Chronic) detention (current) use of anticoagulants (Chronic) Past Medical History: Open lateral right lower leg ulcer Allergies/Adverse Reactions: Allergies naproxen [From Naprosyn] Allergy (Unknown, Verified 08/19/18 09:49) Unknown acetaminophen [From Vicodin] Allergy (Verified 08/19/18 09:49) Unknown codeine Allergy (Verified 08/19/18 09:49) Unknown hydrocodone [From Vicodin] Allergy (Verified 08/19/18 09:49) Unknown levofloxacin [From Levaquin] Allergy (Verified 08/19/18 09:49) Unknown sertraline [From Zoloft] Allergy (Verified 08/19/18 09:49) Unknown sulfamethoxazole Allergy (Verified 08/19/18 09:49) Unknown Home Medications: Ambulatory Orders Medication Instructions Recorded Lisinopril/Hydrochlorothiazide 1 tablet PO DAILY 05/20/18 [Zestoretic 20/12.5 Tablet] Meloxicam 15 mg PO DAILY 05/20/18 Metformin HCl [Glucophage] 500 mg PO BIDCM 05/20/18 Metoprolol Tartrate [Lopressor 50 mg PO 05/20/18 (Beta Gilbert)] Pravastatin [Pravachol] 80 mg PO QHS 05/20/18 Warfarin [Coumadin ([facility])] 3 mg PO DAILY 05/20/18 Multivitamin [Multiple Vitamins] 1 each PO DAILY 08/19/18 Lives: Spouse/ Significant Other Smoking Status: Former smoker Tobacco Use: Non-smoker Review of Systems Constitutional: Denies: Chills, Fever Eyes: Denies: Blurred vision, Drainage, Pain HEENT: Denies: Difficulty Hearing, Difficulty Swallowing, Sore Throat, Visual Changes Cardiovascular: Denies: Chest Pain, Palpitations, Syncope Respiratory: Denies: Cough, Shortness of Breath Gastrointestinal: Denies: Abdominal Pain, Nausea, Vomiting Genitourinary: Denies: Dysuria, Frequency Musculoskeletal: Denies: Joint Pain, Muscle pain Skin: Reports: - - Right lateral lower leg wound. Denies: Jaundice, Rash Neurological: Denies: Balance problems, Change in Speech, Difficulty swallowing, Focal weakness Psychiatric: Denies: Anxiety, Depression Endocrine: Denies: Change in Body Habitus Hematologic/ Lymphatic: Denies: Adenopathy - Physical Exam Vital Signs Temp Pulse Resp BP 98 F 56 L 16 150/89 H 08/19/18 09:40 08/19/18 09:40 08/19/18 09:40 08/19/18 09:40 General: Oriented x3, Cooperative, Well developed HEENT: Atraumatic, PERRLA Oral: Moist Mucosa Neck: Supple, No JVD Lungs: Clear to auscultation, Normal air movement Cardiovascular: Regular rate, Regular Rhythm Abdomen: Bowel Sounds Present, Soft, Non Tender, No Hepato-splenomegaly Extremities: No clubbing, No edema Skin: Ulcer/ Wound - Right lateral lower leg wound traumatic from shovel. Wound Measurements and Assessment WC - Nurse 1 - General Ulcer Measurement Start: 08/19/18 09:40 Freq: Status: Active Protocol: Activity Type Activity Date Activity User E-Sign Co-Sign Detail Recorded Client Recorded Date Recorded By Document 08/19/18 09:40 [facility] [id number] 08/19/18 09:49 BMF 08/19/18 09:40 Wound Center Nurse 1 [Ulcer Assessment] #2- RT LAT LE -Combined with other wound No -Current Size (cm) - Length 2.7 -Current Size (cm) - Width 1.3 -Current Size (cm) - Depth 0.1 -Total Square Cm 3.51 -Date of Last Picture (Recall this 08/19/18 field) -Photo Taken Yes -Epithelialization None Present -Tunneling No -Undermining/Tunneling No -Circular Undermining No -Classification - Thickness Full Thickness without Exposed Support Structure -Exudate Amt Small -Exudate Type Serous -Wound Margin Distinct, Outline Attached -Granulation Amt Large (67-100%) -Granulation Quality Red -Slough/Fibrin Yes -Necrosis Amt Small (1-33%) -Necrotic Tissue Type Adherent Slough -Texture (Yokasta-wound Skin Appearance) Scarring -Moisture (Yokasta-wound Skin Appearance Dry/Scaly ) -Color (Yokasta-wound Skin Appearance) Hemosiderin Staining -Temperature (Yokasta-wound Skin No Abnormality Appearance) (Pt Warm) -Tenderness on Palpation (Yokasta-wound No Skin Appearance) -Ulcer Cleansing Rinsed/ Irrigated with Saline -Foul Odor after Cleansing No -Anesthetic Used 5% Lidocaine Gel [Edema Assessment] -Lower Limb Edema Present Yes -Right Calf (cm) 49 -Right Ankle (cm) 25.7 -Left Calf (cm) 45 -Left Ankle (cm) 26.1 WC - Nurse 2 - General Ulcer CM Notes Start: 08/19/18 09:40 Freq: Status: Active Protocol: Activity Type Activity Date Activity User E-Sign Co-Sign Detail Recorded Client Recorded Date Recorded By Document 08/19/18 10:06 MW [id number] 08/19/18 10:19 MW 08/19/18 10:06 Wound Center Nurse 2 [Procedure/Treatment] #2- RT LAT LE -Time 10:12 -Correct Patient Yes -Correct Side, Site, Position Yes -Correct Procedure Yes -Procedure Performed Yes -Type of Procedure Debridement -Clinical Debridement Subcutaneous -Post Debridement Size (cm) - Length 2.9 -Post Debridement Size (cm) - Width 1.5 -Post Debridement Size (cm) - Depth 0.2 -Total Square Cm 4.35 -Wound/Ulcer Outcome Not Healed -Ulcer Cleansing Rinsed/ Irrigated with Saline -Foul Odor after Cleansing No -Bioengineered Tissue No -Bleeding Controlled with Pressure -Offloading No -Treatment Response Procedure Tolerated Well [See Physician Procedure note for Specifics] Pain Scale: 0-10 Numeric [Pain] -Is Patient Pain Free? Yes Musculoskeletal: No Tenderness to Palpation of Joints or Extremities Lymphatic: No Cervical, Supraclavicular, or Inguinal Adenopathy Neurological: Cranial nerves II-XII grossly intact, Neuro grossly intact Psych/Mental Status: Normal Affect, Appropriate Debridement Note Post-Debridement Measurements/Treatment WC - Nurse 2 - General Ulcer CM Notes Start: 08/19/18 09:40 Freq: Status: Active Protocol: Activity Type Activity Date Activity User E-Sign Co-Sign Detail Recorded Client Recorded Date Recorded By Document 08/19/18 10:06 MW [id number] 08/19/18 10:19 MW 08/19/18 10:06 Wound Center Nurse 2 #2- RT LAT LE -Time 10:12 -Correct Patient Yes -Correct Side, Site, Position Yes -Correct Procedure Yes -Procedure Performed Yes -Type of Procedure Debridement -Clinical Debridement Subcutaneous -Post Debridement Size (cm) - Length 2.9 -Post Debridement Size (cm) - Width 1.5 -Post Debridement Size (cm) - Depth 0.2 -Total Square Cm 4.35 -Wound/Ulcer Outcome Not Healed -Ulcer Cleansing Rinsed/ Irrigated with Saline -Foul Odor after Cleansing No -Bioengineered Tissue No -Bleeding Controlled with Pressure -Offloading No -Treatment Response Procedure Tolerated Well Pain Scale: 0-10 Numeric Is Patient Pain Free? Yes Wound debrided: Right lower leg wound Type of Debridement: Excisional debridement Anesthesia Used: 5% Lidocaine Gel Depth: Down to and including healthy tissue, in the subcutaneous layer Percentage of wound debrided: 100 Instrument Used: 5mm curette Tissue Removed: Fibrin devitalized tissue Severity: Fat Layer Exposed Amount of bleeding with debridement: Mild Bleeding Controlled with: Compression and gauze Patient tolerated procedure well Assessment/Plan Scheduled for ABIs lower extremity cultures done Active Problems Diabetes type 2, controlled (Chronic) Osteoarthritis (Chronic) detention (current) use of anticoagulants (Chronic) Traumatic skin ulcer with fat layer exposed (Acute) Edema of lower extremity (Acute) Cellulitis of lower extremity (Acute) Nonhealing nonsurgical wound with fat layer exposed (Acute) Assessment: Nonhealing nonsurgical ulcer right lower leg. Cellulitis. Edema lower extremity. Neuropathic pain to lower extremity Plan: Wash leg with Dial soap. Apply Aquacel silver moistened with Adaptic over top gauze and tape. Double layer Tubigrip. We will call with the results of cultures and schedule him for ABIs. Follow-up in 1 week
--- NOTE | 2018-08-19 11:30 | HP.PCM_ITS ---
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 (2) Diabetes type 2, controlled Status: Chronic Current Visit: Yes Code(s): E11.9 - Type 2 diabetes mellitus without complications (3) Osteoarthritis Status: Chronic Current Visit: Yes Code(s): M19.90 - Unspecified osteoarthritis, unspecified site (4) Traumatic skin ulcer with fat layer exposed Status: Acute Current Visit: Yes Code(s): L98.492 - Non-pressure chronic ulcer of skin of other sites with fat layer exposed (5) Edema of lower extremity Status: Acute Current Visit: Yes Code(s): R60.0 - Localized edema (6) Cellulitis of lower extremity Status: Acute Current Visit: Yes Code(s): L03.119 - Cellulitis of unspecified part of limb (7) Nonhealing nonsurgical wound with fat layer exposed Status: Acute Current Visit: Yes Code(s): T14.8XXA - Other injury of unspecified body region, initial encounter History of Present Illness Date of Service: 08/19/18 Chief Complaint: Follow-up on a traumatic right lower extremity partial avulsion laceration from a Shovel excellently 6 weeks ago. Has been seeing his family doctor and just putting gauze dressings on. Patient referred himself for nonhealing History of Wound: 78-year-old white male on blood thinners for an unknown reason. Patient was cleaning out his car and was taking a plastic shovel out in a gouged his right lateral lower leg approximately 6 weeks ago has been seeing his family doctor without improvement. Referred himself here has just been using gauze dressings. Uvulitis is noted around very tender and burning pain complaints lower extremity edema also noted. Last ABIs were done in 2013 we will repeat and culture the old open wound. Past Medical History Past Medical History: Chronic Problems Diabetes type 2, controlled (Chronic) Chronic pain disorder (Chronic) Osteoarthritis (Chronic) senior care (current) use of anticoagulants (Chronic) Past Medical History: Open lateral right lower leg ulcer Allergies/Adverse Reactions: Allergies naproxen [From Naprosyn] Allergy (Unknown, Verified 08/19/18 09:49) Unknown acetaminophen [From Vicodin] Allergy (Verified 08/19/18 09:49) Unknown codeine Allergy (Verified 08/19/18 09:49) Unknown hydrocodone [From Vicodin] Allergy (Verified 08/19/18 09:49) Unknown levofloxacin [From Levaquin] Allergy (Verified 08/19/18 09:49) Unknown sertraline [From Zoloft] Allergy (Verified 08/19/18 09:49) Unknown sulfamethoxazole Allergy (Verified 08/19/18 09:49) Unknown Home Medications: Ambulatory Orders Medication Instructions Recorded Lisinopril/Hydrochlorothiazide 1 tablet PO DAILY 05/20/18 [Zestoretic 20/12.5 Tablet] Meloxicam 15 mg PO DAILY 05/20/18 Metformin HCl [Glucophage] 500 mg PO BIDCM 05/20/18 Metoprolol Tartrate [Lopressor 50 mg PO 05/20/18 (Beta Gilbert)] Pravastatin [Pravachol] 80 mg PO QHS 05/20/18 Warfarin [Coumadin ([facility])] 3 mg PO DAILY 05/20/18 Multivitamin [Multiple Vitamins] 1 each PO DAILY 08/19/18 Lives: Spouse/ Significant Other Smoking Status: Former smoker Tobacco Use: Non-smoker Review of Systems Constitutional: Denies: Chills, Fever Eyes: Denies: Blurred vision, Drainage, Pain HEENT: Denies: Difficulty Hearing, Difficulty Swallowing, Sore Throat, Visual Changes Cardiovascular: Denies: Chest Pain, Palpitations, Syncope Respiratory: Denies: Cough, Shortness of Breath Gastrointestinal: Denies: Abdominal Pain, Nausea, Vomiting Genitourinary: Denies: Dysuria, Frequency Musculoskeletal: Denies: Joint Pain, Muscle pain Skin: Reports: - - Right lateral lower leg wound. Denies: Jaundice, Rash Neurological: Denies: Balance problems, Change in Speech, Difficulty swallowing, Focal weakness Psychiatric: Denies: Anxiety, Depression Endocrine: Denies: Change in Body Habitus Hematologic/ Lymphatic: Denies: Adenopathy - Physical Exam Vital Signs Temp Pulse Resp BP 98 F 56 L 16 150/89 H 08/19/18 09:40 08/19/18 09:40 08/19/18 09:40 08/19/18 09:40 General: Oriented x3, Cooperative, Well developed HEENT: Atraumatic, PERRLA Oral: Moist Mucosa Neck: Supple, No JVD Lungs: Clear to auscultation, Normal air movement Cardiovascular: Regular rate, Regular Rhythm Abdomen: Bowel Sounds Present, Soft, Non Tender, No Hepato-splenomegaly Extremities: No clubbing, No edema Skin: Ulcer/ Wound - Right lateral lower leg wound traumatic from shovel. Wound Measurements and Assessment WC - Nurse 1 - General Ulcer Measurement Start: 08/19/18 09:40 Freq: Status: Active Protocol: Activity Type Activity Date Activity User E-Sign Co-Sign Detail Recorded Client Recorded Date Recorded By Document 08/19/18 09:40 [facility] [id number] 08/19/18 09:49 BMF 08/19/18 09:40 Wound Center Nurse 1 [Ulcer Assessment] #2- RT LAT LE -Combined with other wound No -Current Size (cm) - Length 2.7 -Current Size (cm) - Width 1.3 -Current Size (cm) - Depth 0.1 -Total Square Cm 3.51 -Date of Last Picture (Recall this 08/19/18 field) -Photo Taken Yes -Epithelialization None Present -Tunneling No -Undermining/Tunneling No -Circular Undermining No -Classification - Thickness Full Thickness without Exposed Support Structure -Exudate Amt Small -Exudate Type Serous -Wound Margin Distinct, Outline Attached -Granulation Amt Large (67-100%) -Granulation Quality Red -Slough/Fibrin Yes -Necrosis Amt Small (1-33%) -Necrotic Tissue Type Adherent Slough -Texture (Yokasta-wound Skin Appearance) Scarring -Moisture (Yokasta-wound Skin Appearance Dry/Scaly ) -Color (Yokasta-wound Skin Appearance) Hemosiderin Staining -Temperature (Yokasta-wound Skin No Abnormality Appearance) (Pt Warm) -Tenderness on Palpation (Yokasta-wound No Skin Appearance) -Ulcer Cleansing Rinsed/ Irrigated with Saline -Foul Odor after Cleansing No -Anesthetic Used 5% Lidocaine Gel [Edema Assessment] -Lower Limb Edema Present Yes -Right Calf (cm) 49 -Right Ankle (cm) 25.7 -Left Calf (cm) 45 -Left Ankle (cm) 26.1 WC - Nurse 2 - General Ulcer CM Notes Start: 08/19/18 09:40 Freq: Status: Active Protocol: Activity Type Activity Date Activity User E-Sign Co-Sign Detail Recorded Client Recorded Date Recorded By Document 08/19/18 10:06 MW [id number] 08/19/18 10:19 MW 08/19/18 10:06 Wound Center Nurse 2 [Procedure/Treatment] #2- RT LAT LE -Time 10:12 -Correct Patient Yes -Correct Side, Site, Position Yes -Correct Procedure Yes -Procedure Performed Yes -Type of Procedure Debridement -Clinical Debridement Subcutaneous -Post Debridement Size (cm) - Length 2.9 -Post Debridement Size (cm) - Width 1.5 -Post Debridement Size (cm) - Depth 0.2 -Total Square Cm 4.35 -Wound/Ulcer Outcome Not Healed -Ulcer Cleansing Rinsed/ Irrigated with Saline -Foul Odor after Cleansing No -Bioengineered Tissue No -Bleeding Controlled with Pressure -Offloading No -Treatment Response Procedure Tolerated Well [See Physician Procedure note for Specifics] Pain Scale: 0-10 Numeric [Pain] -Is Patient Pain Free? Yes Musculoskeletal: No Tenderness to Palpation of Joints or Extremities Lymphatic: No Cervical, Supraclavicular, or Inguinal Adenopathy Neurological: Cranial nerves II-XII grossly intact, Neuro grossly intact Psych/Mental Status: Normal Affect, Appropriate Debridement Note Post-Debridement Measurements/Treatment WC - Nurse 2 - General Ulcer CM Notes Start: 08/19/18 09:40 Freq: Status: Active Protocol: Activity Type Activity Date Activity User E-Sign Co-Sign Detail Recorded Client Recorded Date Recorded By Document 08/19/18 10:06 MW [id number] 08/19/18 10:19 MW 08/19/18 10:06 Wound Center Nurse 2 #2- RT LAT LE -Time 10:12 -Correct Patient Yes -Correct Side, Site, Position Yes -Correct Procedure Yes -Procedure Performed Yes -Type of Procedure Debridement -Clinical Debridement Subcutaneous -Post Debridement Size (cm) - Length 2.9 -Post Debridement Size (cm) - Width 1.5 -Post Debridement Size (cm) - Depth 0.2 -Total Square Cm 4.35 -Wound/Ulcer Outcome Not Healed -Ulcer Cleansing Rinsed/ Irrigated with Saline -Foul Odor after Cleansing No -Bioengineered Tissue No -Bleeding Controlled with Pressure -Offloading No -Treatment Response Procedure Tolerated Well Pain Scale: 0-10 Numeric Is Patient Pain Free? Yes Wound debrided: Right lower leg wound Type of Debridement: Excisional debridement Anesthesia Used: 5% Lidocaine Gel Depth: Down to and including healthy tissue, in the subcutaneous layer Percentage of wound debrided: 100 Instrument Used: 5mm curette Tissue Removed: Fibrin devitalized tissue Severity: Fat Layer Exposed Amount of bleeding with debridement: Mild Bleeding Controlled with: Compression and gauze Patient tolerated procedure well Assessment/Plan Scheduled for ABIs lower extremity cultures done Active Problems Diabetes type 2, controlled (Chronic) Osteoarthritis (Chronic) senior care (current) use of anticoagulants (Chronic) Traumatic skin ulcer with fat layer exposed (Acute) Edema of lower extremity (Acute) Cellulitis of lower extremity (Acute) Nonhealing nonsurgical wound with fat layer exposed (Acute) Assessment: Nonhealing nonsurgical ulcer right lower leg. Cellulitis. Edema lower extremity. Neuropathic pain to lower extremity Plan: Wash leg with Dial soap. Apply Aquacel silver moistened with Adaptic over top gauze and tape. Double layer Tubigrip. We will call with the results of cultures and schedule him for ABIs. Follow-up in 1 week
[2018-08-26 10:36] VITALS: BP 129/76; PULSE 91; RESP 18; TEMP 36.8; BMI 43.0
--- NOTE | 2018-08-26 11:14 | PCM.WC.PN ---
(1) half-way (current) use of anticoagulants Status: Chronic Current Visit: Yes Code(s): Z79.01 - half-way (current) use of anticoagulants (2) Diabetes type 2, controlled Status: Chronic Current Visit: Yes Code(s): E11.9 - Type 2 diabetes mellitus without complications (3) Osteoarthritis Status: Chronic Current Visit: Yes Code(s): M19.90 - Unspecified osteoarthritis, unspecified site (4) Traumatic skin ulcer with fat layer exposed Status: Acute Current Visit: Yes Code(s): L98.492 - Non-pressure chronic ulcer of skin of other sites with fat layer exposed (5) Edema of lower extremity Status: Acute Current Visit: Yes Code(s): R60.0 - Localized edema (6) Cellulitis of lower extremity Status: Acute Current Visit: Yes Code(s): L03.119 - Cellulitis of unspecified part of limb (7) Nonhealing nonsurgical wound with fat layer exposed Status: Acute Current Visit: Yes Code(s): T14.8XXA - Other injury of unspecified body region, initial encounter Type of Wound Chief Complaint: Follow-up on a traumatic right lower extremity partial avulsion laceration from a Shovel excellently 6 weeks ago. Has been seeing his family doctor and just putting gauze dressings on. Patient referred himself for nonhealing History of Wound: 78-year-old white male on blood thinners for an unknown reason. Patient was cleaning out his car and was taking a plastic shovel out in a gouged his right lateral lower leg approximately 6 weeks ago has been seeing his family doctor without improvement. Referred himself here has just been using gauze dressings. Cellulitis is noted around very tender and burning pain complaints lower extremity edema also noted. Last ABIs were done in 2013 we will repeat and culture the old open wound. Progress of Wound: Today the cultures came back rare bacteria for both aerobic and anaerobic. The wound actually is smaller and still has cellulitis of the whole leg mostly from compression patient states that he had a lot of liquid drainage and discharge from the wound. Patient states that he had a lot of edema but once he was sitting and elevating the improved. Today the ulcer looks clean looks good it still has some slough but it was debrided well. The cellulitis around the edge is gone the edema is better in the lower extremity with compression. - Physical Exam Vital Signs Temp Pulse Resp BP 98.2 F 91 18 129/76 H 08/26/18 10:36 08/26/18 10:36 08/26/18 10:36 08/26/18 10:36 General: Oriented x3, Cooperative, Well developed HEENT: Atraumatic, PERRLA Oral: Moist Mucosa Neck: Supple, No JVD Lungs: Clear to auscultation, Normal air movement Cardiovascular: Regular rate, Regular Rhythm Abdomen: Bowel Sounds Present, Soft, Non Tender, No Hepato-splenomegaly Extremities: No clubbing, No edema, - - Right lateral lower leg wound Wound Measurements and Assessment WC - Nurse 1 - General Ulcer Measurement Start: 08/19/18 09:40 Freq: Status: Active Protocol: Activity Type Activity Date Activity User E-Sign Co-Sign Detail Recorded Client Recorded Date Recorded By Document 08/26/18 10:36 MW [id number] 08/26/18 10:37 MW 08/26/18 10:36 Wound Center Nurse 1 [Ulcer Assessment] #2- RT LAT LE -Combined with other wound No -Current Size (cm) - Length 2.5 -Current Size (cm) - Width 1.2 -Current Size (cm) - Depth 0.1 -Total Square Cm 3.00 -Photo Taken No -Epithelialization None Present -Tunneling No -Undermining/Tunneling No -Circular Undermining No -Exudate Amt Medium -Exudate Type Serosanguineous -Wound Margin Flat & Intact -Granulation Amt Small (1-33%) -Granulation Quality [place] -Slough/Fibrin Yes -Necrosis Amt Medium (34-66%) -Necrotic Tissue Type Adherent Slough -Structure Exposed N/A -Texture ([place]-wound Skin Appearance) Assessed Scarring -Moisture ([place]-wound Skin Appearance Assessed ) Dry/Scaly -Color ([place]-wound Skin Appearance) Assessed Hemosiderin Staining -Temperature ([place]-wound Skin No Abnormality Appearance) (Pt Warm) -Tenderness on Palpation ([place]-wound No Skin Appearance) -Ulcer Cleansing Rinsed/ Irrigated with Saline -Foul Odor after Cleansing No -Anesthetic Used 4% Lidocaine Solution [Edema Assessment] -Lower Limb Edema Present Yes -Right Calf (cm) 48.5 -Right Ankle (cm) 26.5 WC - Nurse 2 - General Ulcer CM Notes Start: 08/19/18 09:40 Freq: Status: Active Protocol: Activity Type Activity Date Activity User E-Sign Co-Sign Detail Recorded Client Recorded Date Recorded By Document 08/26/18 10:52 MW [id number] 08/26/18 10:56 MW 08/26/18 10:52 Wound Center Nurse 2 [Procedure/Treatment] #2- RT LAT LE -Time 10:54 -Correct Patient Yes -Correct Side, Site, Position Yes -Correct Procedure Yes -Procedure Performed Yes -Type of Procedure Debridement -Clinical Debridement Subcutaneous -Post Debridement Size (cm) - Length 2.7 -Post Debridement Size (cm) - Width 1.3 -Post Debridement Size (cm) - Depth 0.2 -Total Square Cm 3.51 -Wound/Ulcer Outcome Not Healed -Ulcer Cleansing Rinsed/ Irrigated with Saline -Foul Odor after Cleansing No -Bioengineered Tissue No -Bleeding Controlled with Pressure -Offloading No -Treatment Response Procedure Tolerated Well [See Physician Procedure note for Specifics] Pain Scale: 0-10 Numeric [Pain] -Is Patient Pain Free? Yes Musculoskeletal: No Tenderness to Palpation of Joints or Extremities Lymphatic: No Cervical, Supraclavicular, or Inguinal Adenopathy Neurological: Cranial nerves II-XII grossly intact, Neuro grossly intact Psych/Mental Status: Normal Affect, Appropriate Debridement Note Post-Debridement Measurements/Treatment WC - Nurse 2 - General Ulcer CM Notes Start: 08/19/18 09:40 Freq: Status: Active Protocol: Activity Type Activity Date Activity User E-Sign Co-Sign Detail Recorded Client Recorded Date Recorded By Document 08/19/18 10:06 MW [id number] 08/19/18 10:19 MW Document 08/26/18 10:52 MW [id number] 08/26/18 10:56 MW 08/19/18 08/26/18 10:06 10:52 Wound Center Nurse 2 #2- RT LAT LE -Time 10:12 10:54 -Correct Patient Yes Yes -Correct Side, Site, Position Yes Yes -Correct Procedure Yes Yes -Procedure Performed Yes Yes -Type of Procedure Debridement Debridement -Clinical Debridement Subcutaneous Subcutaneous -Post Debridement Size (cm) - Length 2.9 2.7 -Post Debridement Size (cm) - Width 1.5 1.3 -Post Debridement Size (cm) - Depth 0.2 0.2 -Total Square Cm 4.35 3.51 -Wound/Ulcer Outcome Not Healed Not Healed -Ulcer Cleansing Rinsed/ Rinsed/ Irrigated with Irrigated with Saline Saline -Foul Odor after Cleansing No No -Bioengineered Tissue No No -Bleeding Controlled with Pressure Pressure -Offloading No No -Treatment Response Procedure Procedure Tolerated Well Tolerated Well Pain Scale: 0-10 Numeric Is Patient Pain Free? Yes Yes Wound debrided: Lateral lower leg wound Type of Debridement: Excisional debridement Anesthesia Used: 5% Lidocaine Gel Depth: Down to and including healthy tissue, in the subcutaneous layer Percentage of wound debrided: 100 Instrument Used: 5mm curette Tissue Removed: Slough and fibrin Severity: Limited To Skin Breakdown Amount of bleeding with debridement: Mild Bleeding Controlled with: Compression and gauze Patient tolerated procedure well Assessment/Plan Active Problems Diabetes type 2, controlled (Chronic) Osteoarthritis (Chronic) half-way (current) use of anticoagulants (Chronic) Traumatic skin ulcer with fat layer exposed (Acute) Edema of lower extremity (Acute) Cellulitis of lower extremity (Acute) Nonhealing nonsurgical wound with fat layer exposed (Acute) Assessment: Nonhealing nonsurgical ulcer right lower leg. Cellulitis. Edema lower extremity. Neuropathic pain to lower extremity Plan: Wash leg with Dial soap. Apply Aquacel silver moistened with Adaptic over top gauze and tape. Double layer Tubigrip. Keep appointment for his ABIs and venous study for next Wednesday. Follow-up in 1 week
--- NOTE | 2018-08-26 11:18 | PN.PCM_ITS ---
(1) shelter (current) use of anticoagulants Status: Chronic Current Visit: Yes Code(s): Z79.01 - shelter (current) use of anticoagulants (2) Diabetes type 2, controlled Status: Chronic Current Visit: Yes Code(s): E11.9 - Type 2 diabetes mellitus without complications (3) Osteoarthritis Status: Chronic Current Visit: Yes Code(s): M19.90 - Unspecified osteoarthritis, unspecified site (4) Traumatic skin ulcer with fat layer exposed Status: Acute Current Visit: Yes Code(s): L98.492 - Non-pressure chronic ulcer of skin of other sites with fat layer exposed (5) Edema of lower extremity Status: Acute Current Visit: Yes Code(s): R60.0 - Localized edema (6) Cellulitis of lower extremity Status: Acute Current Visit: Yes Code(s): L03.119 - Cellulitis of unspecified part of limb (7) Nonhealing nonsurgical wound with fat layer exposed Status: Acute Current Visit: Yes Code(s): T14.8XXA - Other injury of unspecified body region, initial encounter Type of Wound Chief Complaint: Follow-up on a traumatic right lower extremity partial avulsion laceration from a Shovel excellently 6 weeks ago. Has been seeing his family doctor and just putting gauze dressings on. Patient referred himself for nonhealing History of Wound: 78-year-old white male on blood thinners for an unknown reason. Patient was cleaning out his car and was taking a plastic shovel out in a gouged his right lateral lower leg approximately 6 weeks ago has been seeing his family doctor without improvement. Referred himself here has just been using gauze dressings. Cellulitis is noted around very tender and burning pain complaints lower extremity edema also noted. Last ABIs were done in 2013 we will repeat and culture the old open wound. Progress of Wound: Today the cultures came back rare bacteria for both aerobic and anaerobic. The wound actually is smaller and still has cellulitis of the whole leg mostly from compression patient states that he had a lot of liquid drainage and discharge from the wound. Patient states that he had a lot of edema but once he was sitting and elevating the improved. Today the ulcer looks clean looks good it still has some slough but it was debrided well. The cellulitis around the edge is gone the edema is better in the lower extremity with compression. - Physical Exam Vital Signs Temp Pulse Resp BP 98.2 F 91 18 129/76 H 08/26/18 10:36 08/26/18 10:36 08/26/18 10:36 08/26/18 10:36 General: Oriented x3, Cooperative, Well developed HEENT: Atraumatic, PERRLA Oral: Moist Mucosa Neck: Supple, No JVD Lungs: Clear to auscultation, Normal air movement Cardiovascular: Regular rate, Regular Rhythm Abdomen: Bowel Sounds Present, Soft, Non Tender, No Hepato-splenomegaly Extremities: No clubbing, No edema, - - Right lateral lower leg wound Wound Measurements and Assessment WC - Nurse 1 - General Ulcer Measurement Start: 08/19/18 09:40 Freq: Status: Active Protocol: Activity Type Activity Date Activity User E-Sign Co-Sign Detail Recorded Client Recorded Date Recorded By Document 08/26/18 10:36 MW [id number] 08/26/18 10:37 MW 08/26/18 10:36 Wound Center Nurse 1 [Ulcer Assessment] #2- RT LAT LE -Combined with other wound No -Current Size (cm) - Length 2.5 -Current Size (cm) - Width 1.2 -Current Size (cm) - Depth 0.1 -Total Square Cm 3.00 -Photo Taken No -Epithelialization None Present -Tunneling No -Undermining/Tunneling No -Circular Undermining No -Exudate Amt Medium -Exudate Type Serosanguineous -Wound Margin Flat & Intact -Granulation Amt Small (1-33%) -Granulation Quality [place] -Slough/Fibrin Yes -Necrosis Amt Medium (34-66%) -Necrotic Tissue Type Adherent Slough -Structure Exposed N/A -Texture ([place]-wound Skin Appearance) Assessed Scarring -Moisture ([place]-wound Skin Appearance Assessed ) Dry/Scaly -Color ([place]-wound Skin Appearance) Assessed Hemosiderin Staining -Temperature ([place]-wound Skin No Abnormality Appearance) (Pt Warm) -Tenderness on Palpation ([place]-wound No Skin Appearance) -Ulcer Cleansing Rinsed/ Irrigated with Saline -Foul Odor after Cleansing No -Anesthetic Used 4% Lidocaine Solution [Edema Assessment] -Lower Limb Edema Present Yes -Right Calf (cm) 48.5 -Right Ankle (cm) 26.5 WC - Nurse 2 - General Ulcer CM Notes Start: 08/19/18 09:40 Freq: Status: Active Protocol: Activity Type Activity Date Activity User E-Sign Co-Sign Detail Recorded Client Recorded Date Recorded By Document 08/26/18 10:52 MW [id number] 08/26/18 10:56 MW 08/26/18 10:52 Wound Center Nurse 2 [Procedure/Treatment] #2- RT LAT LE -Time 10:54 -Correct Patient Yes -Correct Side, Site, Position Yes -Correct Procedure Yes -Procedure Performed Yes -Type of Procedure Debridement -Clinical Debridement Subcutaneous -Post Debridement Size (cm) - Length 2.7 -Post Debridement Size (cm) - Width 1.3 -Post Debridement Size (cm) - Depth 0.2 -Total Square Cm 3.51 -Wound/Ulcer Outcome Not Healed -Ulcer Cleansing Rinsed/ Irrigated with Saline -Foul Odor after Cleansing No -Bioengineered Tissue No -Bleeding Controlled with Pressure -Offloading No -Treatment Response Procedure Tolerated Well [See Physician Procedure note for Specifics] Pain Scale: 0-10 Numeric [Pain] -Is Patient Pain Free? Yes Musculoskeletal: No Tenderness to Palpation of Joints or Extremities Lymphatic: No Cervical, Supraclavicular, or Inguinal Adenopathy Neurological: Cranial nerves II-XII grossly intact, Neuro grossly intact Psych/Mental Status: Normal Affect, Appropriate Debridement Note Post-Debridement Measurements/Treatment WC - Nurse 2 - General Ulcer CM Notes Start: 08/19/18 09:40 Freq: Status: Active Protocol: Activity Type Activity Date Activity User E-Sign Co-Sign Detail Recorded Client Recorded Date Recorded By Document 08/19/18 10:06 MW [id number] 08/19/18 10:19 MW Document 08/26/18 10:52 MW [id number] 08/26/18 10:56 MW 08/19/18 08/26/18 10:06 10:52 Wound Center Nurse 2 #2- RT LAT LE -Time 10:12 10:54 -Correct Patient Yes Yes -Correct Side, Site, Position Yes Yes -Correct Procedure Yes Yes -Procedure Performed Yes Yes -Type of Procedure Debridement Debridement -Clinical Debridement Subcutaneous Subcutaneous -Post Debridement Size (cm) - Length 2.9 2.7 -Post Debridement Size (cm) - Width 1.5 1.3 -Post Debridement Size (cm) - Depth 0.2 0.2 -Total Square Cm 4.35 3.51 -Wound/Ulcer Outcome Not Healed Not Healed -Ulcer Cleansing Rinsed/ Rinsed/ Irrigated with Irrigated with Saline Saline -Foul Odor after Cleansing No No -Bioengineered Tissue No No -Bleeding Controlled with Pressure Pressure -Offloading No No -Treatment Response Procedure Procedure Tolerated Well Tolerated Well Pain Scale: 0-10 Numeric Is Patient Pain Free? Yes Yes Wound debrided: Lateral lower leg wound Type of Debridement: Excisional debridement Anesthesia Used: 5% Lidocaine Gel Depth: Down to and including healthy tissue, in the subcutaneous layer Percentage of wound debrided: 100 Instrument Used: 5mm curette Tissue Removed: Slough and fibrin Severity: Limited To Skin Breakdown Amount of bleeding with debridement: Mild Bleeding Controlled with: Compression and gauze Patient tolerated procedure well Assessment/Plan Active Problems Diabetes type 2, controlled (Chronic) Osteoarthritis (Chronic) shelter (current) use of anticoagulants (Chronic) Traumatic skin ulcer with fat layer exposed (Acute) Edema of lower extremity (Acute) Cellulitis of lower extremity (Acute) Nonhealing nonsurgical wound with fat layer exposed (Acute) Assessment: Nonhealing nonsurgical ulcer right lower leg. Cellulitis. Edema lower extremity. Neuropathic pain to lower extremity Plan: Wash leg with Dial soap. Apply Aquacel silver moistened with Adaptic over top gauze and tape. Double layer Tubigrip. Keep appointment for his ABIs and venous study for next Wednesday. Follow-up in 1 week
--- NOTE | 2018-08-31 12:48 | ART_ITS ---
Reason For Study: Non-healing wound Procedure A bilateral lower extremity continuous wave Doppler with analog waveform analysis,segmental pressures,and ankle brachial indexes without exercise. Left Segmental Pressures Left brachial= 137mmHg. Left posterior tibial artery = 159mmHg. Left dorsalis pedis artery = 169mmHg. Left digit = 141 mmHg. The left dorsalis pedis waveforms are triphasic. The left posterior tibial artery waveforms are triphasic. Right Segmental Pressures Right brachial= 131mmHg. Right posterior tibial artery = 166mmHg. Right dorsalis pedis artery = 166mmHg. Right digit = 143 mmHg. The right dorsalis pedis waveforms are triphasic. The right posterior tibial artery waveforms are triphasic. Indices The right ankle brachial index by the dorsalis pedis is 1.2. The right ankle brachial index by the posterior tibial artery is 1.2. The right digital-brachial index is 1.0. The left ankle brachial index by the dorsalis pedis is 1.2. The left ankle brachial index by the posterior tibial artery is 1.2. The left digital-brachial index is 1.0. Interpretation Summary Triphasic Doppler waveforms are noted at ankle level bilaterally. Pulse-volume recording waveform amplitudes are satisfactory at all levels bilaterally, including low-thigh, calf, ankle, and digital levels. Resting ankle-brachial indices are bilaterally normal. Digital-brachial indices are normal bilaterally. There is no evidence of significant arterial occlusive disease in the lower extremities bilaterally. Ordering Physician: Natasha Paige Referring Physician: Natasha Paige Performed By: Sharon Coombs [facility]
--- NOTE | 2018-08-31 12:48 | VDLE_ITS ---
Reason For Study: Non-healing wound RIGHT LEFT CFV is compressible, spontaneous, phasic, CFV is compressible, spontaneous, phasic, competent and demonstrates normal competent, and demonstrates normal augmentation. augmentation. FV is compressible, spontaneous, phasic, FV is compressible, spontaneous, phasic, competent and demonstrates normal competent and demonstrates normal augmentation. augmentation. POP V is compressible, spontaneous, phasic, POP V is compressible, spontaneous, phasic, competent and demonstrates normal competent and demonstrates normal augmentation. augmentation. T/P Trunk is compressible. T/P Trunk is compressible. PTV is compressible. PTV is compressible. RT PerV is compressible. LT PerV is compressible. SFJis competent SFJ is INCOMPETENT with reflux greater GSV is competent above knee than .5 sec GSV is INCOMPETENT below knee with reflux GSV is competent greater than .5 sec and diameter of .36 x .39 SSV is competent. cm SSV is INCOMPETENT with reflux greater than .5 sec and diameter of .44 x .47 cm. Interpretation Summary Deep veins of the lower extremities are bilaterally patent and compressible segmentally. There is no evidence of deep vein thrombosis on either side. Valvular competence appears intact within the proximal deep venous systems bilaterally. The greater saphenous veins appear bilaterally patent and compressible segmentally. The right sapheno-femoral junction is competent . The left sapheno-femoral junction is incompetent . The right greater saphenous vein appears competent above the knee. The right greater saphenous vein appears incompetent below the knee. The left greater saphenous vein appears segmentally competent. The right small saphenous vein is patent and incompetent. The left small saphenous vein is patent and competent. Ordering Physician: Natasha Paige Referring Physician: Natasha Paige Performed By: Sharon Coombs RVT
[2018-09-02 10:06] VITALS: BP 141/78; PULSE 101; RESP 20; TEMP 37.1; BMI 43.0
--- NOTE | 2018-09-02 11:07 | PCM.WC.PN ---
(1) retirement (current) use of anticoagulants Status: Chronic Current Visit: Yes Code(s): Z79.01 - long term care administrator (current) use of anticoagulants (2) Diabetes type 2, controlled Status: Chronic Current Visit: Yes Code(s): E11.9 - Type 2 diabetes mellitus without complications (3) Osteoarthritis Status: Chronic Current Visit: Yes Code(s): M19.90 - Unspecified osteoarthritis, unspecified site (4) Traumatic skin ulcer with fat layer exposed Status: Acute Current Visit: Yes Code(s): L98.492 - Non-pressure chronic ulcer of skin of other sites with fat layer exposed (5) Edema of lower extremity Status: Acute Current Visit: Yes Code(s): R60.0 - Localized edema (6) Cellulitis of lower extremity Status: Acute Current Visit: Yes Code(s): L03.119 - Cellulitis of unspecified part of limb (7) Nonhealing nonsurgical wound with fat layer exposed Status: Acute Current Visit: Yes Code(s): T14.8XXA - Other injury of unspecified body region, initial encounter (8) Peripheral vascular disease of lower extremity with ulceration Status: Chronic Current Visit: Yes Code(s): I73.9 - Peripheral vascular disease, unspecified; L97.909 - Non-pressure chronic ulcer of unspecified part of unspecified lower leg with unspecified severity Type of Wound Chief Complaint: Follow-up on a traumatic right lower extremity partial avulsion laceration from a Shovel excellently 6 weeks ago. Has been seeing his family doctor and just putting gauze dressings on. Patient referred himself for nonhealing History of Wound: 78-year-old white male on blood thinners for an unknown reason. Patient was cleaning out his car and was taking a plastic shovel out in a gouged his right lateral lower leg approximately 6 weeks ago has been seeing his family doctor without improvement. Referred himself here has just been using gauze dressings. Cellulitis is noted around very tender and burning pain complaints lower extremity edema also noted. Last ABIs were done in 2013 we will repeat and culture the old open wound. Progress of Wound: The cultures came back rare bacteria for both aerobic and anaerobic. The wound actually is smaller and still has cellulitis of the whole leg mostly from edema .Patient states that he had a lot of liquid drainage and discharge from the wound compression. Patient states that he had a lot of edema but once he was sitting and elevating the improved. Today the ulcer looks clean looks good it still has some slough but it was debrided well. The cellulitis around the edge is gone the edema is better in the lower extremity with compression. Arterial brachial studies show good circulation but the venous has some blockages in the GS V and J VS. patient will be referred to Dr. Hinkle for evaluation for surgery. She was approved for epi-fix for his legs through Medicare but his secondary refused he be required to pay the 20% they are going to hold on that. He has been doing well on the Aquacel extra were going to change him to Promogran for healing purposes. - Physical Exam Vital Signs Temp Pulse Resp BP 98.7 F 101 H 20 H 141/78 H 09/02/18 10:06 09/02/18 10:06 09/02/18 10:06 09/02/18 10:06 General: Oriented x3, Cooperative, Well developed HEENT: Atraumatic, PERRLA Oral: Moist Mucosa Neck: Supple, No JVD Lungs: Clear to auscultation, Normal air movement Cardiovascular: Regular rate, Regular Rhythm Abdomen: Bowel Sounds Present, Soft, Non Tender, No Hepato-splenomegaly Extremities: No clubbing, No edema, - - Right lateral lower leg ulcer from his peripheral vascular disease Wound Measurements and Assessment WC - Nurse 1 - General Ulcer Measurement Start: 08/19/18 09:40 Freq: Status: Active Protocol: Activity Type Activity Date Activity User E-Sign Co-Sign Detail Recorded Client Recorded Date Recorded By Document 09/02/18 10:06 [id number] 09/02/18 10:22 AN 09/02/18 10:06 Wound Center Nurse 1 [Ulcer Assessment] #2- RT LAT LE -Current Size (cm) - Length 2.7 -Current Size (cm) - Width 1.0 -Current Size (cm) - Depth 0.2 -Total Square Cm 2.70 -Classification - Thickness Full Thickness without Exposed Support Structure -Exudate Amt Medium -Exudate Type Serosanguineous -Wound Margin Distinct, Outline Attached -Granulation Amt Small (1-33%) -Granulation Quality Red -Slough/Fibrin Yes -Necrosis Amt Large (67-100%) -Necrotic Tissue Type Adherent Slough -Structure Exposed None/Limited to Skin Breakdown -Texture (Yokasta-wound Skin Appearance) Assessed Localized Edema -Moisture (Yokasta-wound Skin Appearance Assessed ) -Color (Yokasta-wound Skin Appearance) Assessed -Temperature (Yokasta-wound Skin No Abnormality Appearance) (Pt Warm) -Tenderness on Palpation (Yokasta-wound Yes Skin Appearance) -Ulcer Cleansing Rinsed/ Irrigated with Saline -Foul Odor after Cleansing No -Anesthetic Used 4% Lidocaine Solution [Edema Assessment] -Right Calf (cm) 47 -Right Ankle (cm) 26.5 WC - Nurse 2 - General Ulcer CM Notes Start: 08/19/18 09:40 Freq: Status: Active Protocol: Activity Type Activity Date Activity User E-Sign Co-Sign Detail Recorded Client Recorded Date Recorded By Document 09/02/18 10:36 MW [id number] 09/02/18 10:37 MW 09/02/18 10:36 Wound Center Nurse 2 [Procedure/Treatment] #2- RT LAT LE -Time 10:37 -Correct Patient Yes -Correct Side, Site, Position Yes -Correct Procedure Yes -Procedure Performed Yes -Type of Procedure Debridement -Clinical Debridement Subcutaneous -Post Debridement Size (cm) - Length 2.5 -Post Debridement Size (cm) - Width 1.0 -Post Debridement Size (cm) - Depth 0.2 -Total Square Cm 2.50 -Wound/Ulcer Outcome Not Healed -Ulcer Cleansing Rinsed/ Irrigated with Saline -Foul Odor after Cleansing No -Bioengineered Tissue No -Bleeding Controlled with Pressure -Offloading No -Treatment Response Procedure Tolerated Well [See Physician Procedure note for Specifics] Pain Scale: 0-10 Numeric [Pain] -Is Patient Pain Free? Yes Musculoskeletal: No Tenderness to Palpation of Joints or Extremities Lymphatic: No Cervical, Supraclavicular, or Inguinal Adenopathy Neurological: Cranial nerves II-XII grossly intact, Neuro grossly intact Psych/Mental Status: Normal Affect, Appropriate Debridement Note Post-Debridement Measurements/Treatment WC - Nurse 2 - General Ulcer CM Notes Start: 08/19/18 09:40 Freq: Status: Active Protocol: Activity Type Activity Date Activity User E-Sign Co-Sign Detail Recorded Client Recorded Date Recorded By Document 08/19/18 10:06 MW [id number] 08/19/18 10:19 MW Document 08/26/18 10:52 MW [id number] 08/26/18 10:56 MW Document 09/02/18 10:36 MW [id number] 09/02/18 10:37 MW 08/19/18 08/26/18 09/02/18 10:06 10:52 10:36 Wound Center Nurse 2 #2- RT LAT LE -Time 10:12 10:54 10:37 -Correct Patient Yes Yes Yes -Correct Side, Site, Position Yes Yes Yes -Correct Procedure Yes Yes Yes -Procedure Performed Yes Yes Yes -Type of Procedure Debridement Debridement Debridement -Clinical Debridement Subcutaneous Subcutaneous Subcutaneous -Post Debridement Size (cm) - Length 2.9 2.7 2.5 -Post Debridement Size (cm) - Width 1.5 1.3 1.0 -Post Debridement Size (cm) - Depth 0.2 0.2 0.2 -Total Square Cm 4.35 3.51 2.50 -Wound/Ulcer Outcome Not Healed Not Healed Not Healed -Ulcer Cleansing Rinsed/ Rinsed/ Rinsed/ Irrigated with Irrigated with Irrigated with Saline Saline Saline -Foul Odor after Cleansing No No No -Bioengineered Tissue No No No -Bleeding Controlled with Pressure Pressure Pressure -Offloading No No No -Treatment Response Procedure Procedure Procedure Tolerated Well Tolerated Well Tolerated Well Pain Scale: 0-10 Numeric Is Patient Pain Free? Yes Yes Yes Wound debrided: Lateral lower leg ulcer Type of Debridement: Excisional debridement Anesthesia Used: 5% Lidocaine Gel Depth: Down to and including healthy tissue, in the subcutaneous layer Percentage of wound debrided: 100 Instrument Used: 5mm curette Tissue Removed: Slough and fibrin Amount of bleeding with debridement: Mild Bleeding Controlled with: Compression and gauze Patient tolerated procedure well Assessment/Plan Active Problems Diabetes type 2, controlled (Chronic) Osteoarthritis (Chronic) retirement (current) use of anticoagulants (Chronic) Traumatic skin ulcer with fat layer exposed (Acute) Edema of lower extremity (Acute) Cellulitis of lower extremity (Acute) Nonhealing nonsurgical wound with fat layer exposed (Acute) Peripheral vascular disease of lower extremity with ulceration (Chronic) Assessment: Nonhealing nonsurgical ulcer right lower leg. Cellulitis. Edema lower extremity. Neuropathic pain to lower extremity Plan: Wash leg with Dial soap. Apply Promogran moistened with Adaptic over top gauze and tape. Double layer Tubigrip. We will refer to Dr. 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 Follow-up in 1 week
[2018-09-02 11:13] VITALS: BP 154/82; PULSE 87; RESP 18; TEMP 36.7; BMI 43.0
--- NOTE | 2018-09-02 11:13 | PN.PCM_ITS ---
(1) assisted (current) use of anticoagulants Status: Chronic Current Visit: Yes Code(s): Z79.01 - assisted (current) use of anticoagulants (2) Diabetes type 2, controlled Status: Chronic Current Visit: Yes Code(s): E11.9 - Type 2 diabetes mellitus without complications (3) Osteoarthritis Status: Chronic Current Visit: Yes Code(s): M19.90 - Unspecified osteoarthritis, unspecified site (4) Traumatic skin ulcer with fat layer exposed Status: Acute Current Visit: Yes Code(s): L98.492 - Non-pressure chronic ulcer of skin of other sites with fat layer exposed (5) Edema of lower extremity Status: Acute Current Visit: Yes Code(s): R60.0 - Localized edema (6) Cellulitis of lower extremity Status: Acute Current Visit: Yes Code(s): L03.119 - Cellulitis of unspecified part of limb (7) Nonhealing nonsurgical wound with fat layer exposed Status: Acute Current Visit: Yes Code(s): T14.8XXA - Other injury of unspecified body region, initial encounter (8) Peripheral vascular disease of lower extremity with ulceration Status: Chronic Current Visit: Yes Code(s): I73.9 - Peripheral vascular disease, unspecified; L97.909 - Non-pressure chronic ulcer of unspecified part of unspecified lower leg with unspecified severity Type of Wound Chief Complaint: Follow-up on a traumatic right lower extremity partial avulsion laceration from a Shovel excellently 6 weeks ago. Has been seeing his family doctor and just putting gauze dressings on. Patient referred himself for nonhealing History of Wound: 78-year-old white male on blood thinners for an unknown reas on. Patient was cleaning out his car and was taking a plastic shovel out in a gouged his right lateral lower leg approximately 6 weeks ago has been seeing his family doctor without improvement. Referred himself here has just been using gauze dressings. Cellulitis is noted around very tender and burning pain complaints lower extremity edema also noted. Last ABIs were done in 2013 we will repeat and culture the old open wound. Progress of Wound: The cultures came back rare bacteria for both aerobic and anaerobic. The wound actually is smaller and still has cellulitis of the whole leg mostly from edema .Patient states that he had a lot of liquid drainage and discharge from the wound compression. Patient states that he had a lot of edema but once he was sitting and elevating the improved. Today the ulcer looks clean looks good it still has some slough but it was debrided well. The cellulitis around the edge is gone the edema is better in the lower extremity with compression. Arterial brachial studies show good circulation but the venous has some blockages in the GS V and J VS. patient will be referred to Dr. Hinkle for evaluation for surgery. She was approved for epi-fix for his legs through Medicare but his secondary refused he be required to pay the 20% they are going to hold on that. He has been doing well on the Aquacel extra were going [facility]. - Physical Exam Vital Signs Temp Pulse Resp BP 98.7 F 101 H 20 H 141/78 H 09/02/18 10:06 09/02/18 10:06 09/02/18 10:06 09/02/18 10:06 General: Oriented x3, Cooperative, Well developed HEENT: Atraumatic, PERRLA Oral: Moist Mucosa Neck: Supple, No JVD Lungs: Clear to auscultation, Normal air movement Cardiovascular: Regular rate, Regular Rhythm Abdomen: Bowel Sounds Present, Soft, Non Tender, No Hepato-splenomegaly Extremities: No clubbing, No edema, - - Right lateral lower leg ulcer from his peripheral vascular disease Wound Measurements and Assessment WC - Nurse 1 - General Ulcer Measurement Start: 08/19/18 09:40 Freq: Status: Active Protocol: Activity Type Activity Date Activity User E-Sign Co-Sign Detail Recorded Client Recorded Date Recorded By Document 09/02/18 10:06 [id number] 09/02/18 10:22 AN 09/02/18 10:06 Wound Center Nurse 1 [Ulcer Assessment] #2- RT LAT LE -Current Size (cm) - Length 2.7 -Current Size (cm) - Width 1.0 -Current Size (cm) - Depth 0.2 -Total Square Cm 2.70 -Classification - Thickness Full Thickness without Exposed Support Structure -Exudate Amt Medium -Exudate Type Serosanguineous -Wound Margin Distinct, Outline Attached -Granulation Amt Small (1-33%) -Granulation Quality Red -Slough/Fibrin Yes -Necrosis Amt Large (67-100%) -Necrotic Tissue Type Adherent Slough -Structure Exposed None/Limited to Skin Breakdown -Texture (Yokasta-wound Skin Appearance) Assessed Localized Edema -Moisture (Yokasta-wound Skin Appearance Assessed ) -Color (Yokasta-wound Skin Appearance) Assessed -Temperature (Yokasta-wound Skin No Abnormality Appearance) (Pt Warm) -Tenderness on Palpation (Yokasta-wound Yes Skin Appearance) -Ulcer Cleansing Rinsed/ Irrigated with Saline -Foul Odor after Cleansing No -Anesthetic Used 4% Lidocaine Solution [Edema Assessment] -Right Calf (cm) 47 -Right Ankle (cm) 26.5 WC - Nurse 2 - General Ulcer CM Notes Start: 08/19/18 09:40 Freq: Status: Active Protocol: Activity Type Activity Date Activity User E-Sign Co-Sign Detail Recorded Client Recorded Date Recorded By Document 09/02/18 10:36 MW [id number] 09/02/18 10:37 MW 09/02/18 10:36 Wound Center Nurse 2 [Procedure/Treatment] #2- RT LAT LE -Time 10:37 -Correct Patient Yes -Correct Side, Site, Position Yes -Correct Procedure Yes -Procedure Performed Yes -Type of Procedure Debridement -Clinical Debridement Subcutaneous -Post Debridement Size (cm) - Length 2.5 -Post Debridement Size (cm) - Width 1.0 -Post Debridement Size (cm) - Depth 0.2 -Total Square Cm 2.50 -Wound/Ulcer Outcome Not Healed -Ulcer Cleansing Rinsed/ Irrigated with Saline -Foul Odor after Cleansing No -Bioengineered Tissue No -Bleeding Controlled with Pressure -Offloading No -Treatment Response Procedure Tolerated Well [See Physician Procedure note for Specifics] Pain Scale: 0-10 Numeric [Pain] -Is Patient Pain Free? Yes Musculoskeletal: No Tenderness to Palpation of Joints or Extremities Lymphatic: No Cervical, Supraclavicular, or Inguinal Adenopathy Neurological: Cranial nerves II-XII grossly intact, Neuro grossly intact Psych/Mental Status: Normal Affect, Appropriate Debridement Note Post-Debridement Measurements/Treatment WC - Nurse 2 - General Ulcer CM Notes Start: 08/19/18 09:40 Freq: Status: Active Protocol: Activity Type Activity Date Activity User E-Sign Co-Sign Detail Recorded Client Recorded Date Recorded By Document 08/19/18 10:06 MW [id number] 08/19/18 10:19 MW Document 08/26/18 10:52 MW [id number] 08/26/18 10:56 MW Document 09/02/18 10:36 MW [id number] 09/02/18 10:37 MW 08/19/18 08/26/18 09/02/18 10:06 10:52 10:36 Wound Center Nurse 2 #2- RT LAT LE -Time 10:12 10:54 10:37 -Correct Patient Yes Yes Yes -Correct Side, Site, Position Yes Yes Yes -Correct Procedure Yes Yes Yes -Procedure Performed Yes Yes Yes -Type of Procedure Debridement Debridement Debridement -Clinical Debridement Subcutaneous Subcutaneous Subcutaneous -Post Debridement Size (cm) - Length 2.9 2.7 2.5 -Post Debridement Size (cm) - Width 1.5 1.3 1.0 -Post Debridement Size (cm) - Depth 0.2 0.2 0.2 -Total Square Cm 4.35 3.51 2.50 -Wound/Ulcer Outcome Not Healed Not Healed Not Healed -Ulcer Cleansing Rinsed/ Rinsed/ Rinsed/ Irrigated with Irrigated with Irrigated with Saline Saline Saline -Foul Odor after Cleansing No No No -Bioengineered Tissue No No No -Bleeding Controlled with Pressure Pressure Pressure -Offloading No No No -Treatment Response Procedure Procedure Procedure Tolerated Well Tolerated Well Tolerated Well Pain Scale: 0-10 Numeric Is Patient Pain Free? Yes Yes Yes Wound debrided: Lateral lower leg ulcer Type of Debridement: Excisional debridement Anesthesia Used: 5% Lidocaine Gel Depth: Down to and including healthy tissue, in the subcutaneous layer Percentage of wound debrided: 100 Instrument Used: 5mm curette Tissue Removed: Slough and fibrin Amount of bleeding with debridement: Mild Bleeding Controlled with: Compression and gauze Patient tolerated procedure well Assessment/Plan Active Problems Diabetes type 2, controlled (Chronic) Osteoarthritis (Chronic) assisted (current) use of anticoagulants (Chronic) Traumatic skin ulcer with fat layer exposed (Acute) Edema of lower extremity (Acute) Cellulitis of lower extremity (Acute) Nonhealing nonsurgical wound with fat layer exposed (Acute) Peripheral vascular disease of lower extremity with ulceration (Chronic) Assessment: Nonhealing nonsurgical ulcer right lower leg. Cellulitis. Edema lower extremity. Neuropathic pain to lower extremity Plan: Wash leg with Dial soap. Apply Promogran moistened with Adaptic over top gauze and tape. Double layer Tubigrip. We will refer to Dr. 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 Follow-up in 1 week
== END 2018-09-04 23:59 ==
LOC: WC 10:00
PROVIDERS: Family Provider Family Medicine; PCP Family Medicine; Referring Provider Nurse Practitioner; Visit Provider Nurse Practitioner
DX: S81.811A Laceration without foreign body, right lower leg, initial encounter (principal); E11.622 Type 2 diabetes mellitus with other skin ulcer; R60.0 Localized edema; M19.90 Unspecified osteoarthritis, unspecified site; W22.8XXA Striking against or struck by other objects, initial encounter; E11.9 Type 2 diabetes mellitus without complications; Z87.891 Personal history of nicotine dependence; L03.115 Cellulitis of right lower limb; I73.9 Peripheral vascular disease, unspecified
CPT/HCPCS: 11042; 87070; 87075; 87077; 87186; 87205; 93923; 93970; 99213; G0463

== ENCOUNTER 2018-09-30 08:00 | Outpatient (RCR) | payer MEDICARE, OTHER, SELFPAY ==
[2018-09-05 01:41] VITALS: BP 154/82; PULSE 87; RESP 18; TEMP 36.7
[2018-09-09 09:02] VITALS: BP 143/92; PULSE 106; RESP 18; TEMP 37; BMI 43.0
--- NOTE | 2018-09-09 09:18 | PCM.WC.PN ---
(1) Cellulitis of lower extremity Status: Acute Current Visit: No Qualifiers: Laterality: right Qualified Code(s): L03.115 - Cellulitis of right lower limb Code(s): L03.119 - Cellulitis of unspecified part of limb (2) Edema of lower extremity Status: Acute Current Visit: Yes Code(s): R60.0 - Localized edema (3) Nonhealing nonsurgical wound with fat layer exposed Status: Acute Current Visit: Yes Code(s): T14.8XXA - Other injury of unspecified body region, initial encounter (4) Traumatic skin ulcer with fat layer exposed Status: Acute Current Visit: Yes Code(s): L98.492 - Non-pressure chronic ulcer of skin of other sites with fat layer exposed (5) Diabetes type 2, controlled Status: Chronic Current Visit: Yes Code(s): E11.9 - Type 2 diabetes mellitus without complications (6) halfway (current) use of anticoagulants Status: Chronic Current Visit: Yes Code(s): Z79.01 - halfway (current) use of 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 Has been seeing his family doctor and just putting gauze dressings on. Patient referred himself for nonhealing History of Wound: 78-year-old white male on blood thinners for an unknown reason. Patient was cleaning out his car and was taking a plastic shovel out in a gouged his right lateral lower leg approximately 6 weeks ago has been seeing his family doctor without improvement. Referred himself here has just been using gauze dressings. Cellulitis is noted around very tender and burning pain complaints lower extremity edema also noted. Last ABIs were done in 2013 we will repeat and culture the old open wound. Progress of Wound: The cultures came back rare bacteria for both aerobic and anaerobic. The wound slightly larger this week and still has cellulitis of the whole leg mostly from edema .Patient states that he had a lot of liquid drainage and discharge from the wound compression. Patient states that he had a lot of edema but once he was sitting and elevating the improved. Had a bout of redness cellulitis the whole leg and went to his family doctor was put on antibiotics has no idea what antibiotic he was put on. Patient feels it looks better it looks about the same as it did last week on the cellulitis. Today the ulcer looks clean looks good it has no slough but it was debrided well. The cellulitis around the edge is gone the edema is better in the lower extremity with compression. Arterial brachial studies show good circulation but the venous has some blockages in the GS V and J VS. patient will be referred to Dr. Hinkle for evaluation for surgery. Patient states he has not heard from Dr. Hinkle's office we will call and make the appointment for ourselves. He was approved for epi-fix for his legs through Medicare but his secondary refused he be required to pay the 20% they are going to hold on that. He has been doing well on the Promogran for healing purposes. Lots of self buds are developing in the base of the ulcer - Physical Exam Vital Signs Temp Pulse Resp BP 98.6 F 106 H 18 143/92 H 09/09/18 09:02 09/09/18 09:02 09/09/18 09:02 09/09/18 09:02 General: Oriented x3, Cooperative, Well developed HEENT: Atraumatic, PERRLA Oral: Moist Mucosa Neck: Supple, No JVD Lungs: Clear to auscultation, Normal air movement Cardiovascular: Regular rate, Regular Rhythm Abdomen: Bowel Sounds Present, Soft, Non Tender, No Hepato-splenomegaly Extremities: No clubbing, No edema Skin: Ulcer/ Wound - Right lateral lower leg Wound Measurements and Assessment WC - Nurse 1 - General Ulcer Measurement Start: 09/09/18 09:02 Freq: Status: Active Protocol: Activity Type Activity Date Activity User E-Sign Co-Sign Detail Recorded Client Recorded Date Recorded By Document 09/09/18 09:02 DV [id number] 09/09/18 09:04 DV 09/09/18 09:02 Wound Center Nurse 1 [Ulcer Assessment] #2- RT LAT LE -Combined with other wound No -Current Size (cm) - Length 2.2 -Current Size (cm) - Width 1.1 -Current Size (cm) - Depth 0.1 -Total Square Cm 2.42 -Photo Taken No -Epithelialization Small 1-33% -Tunneling No -Undermining/Tunneling No -Circular Undermining No -Classification - Thickness Full Thickness without Exposed Support Structure -Granulation Amt Large (67-100%) -Granulation Quality Hyper- granulation Red -Slough/Fibrin No -Necrosis Amt Small (1-33%) -Necrotic Tissue Type Adherent Slough -Structure Exposed None/Limited to Skin Breakdown -Texture (Yokasta-wound Skin Appearance) No Abnormality Assessed Scarring -Moisture (Yokasta-wound Skin Appearance Assessed ) Weeping -Color (Yokasta-wound Skin Appearance) No Abnormality Assessed -Temperature (Yokasta-wound Skin No Abnormality Appearance) (Pt Warm) -Tenderness on Palpation (Yokasta-wound No Skin Appearance) -Ulcer Cleansing Rinsed/ Irrigated with Saline -Foul Odor after Cleansing No -Anesthetic Used 5% Lidocaine Gel [Edema Assessment] -Lower Limb Edema Present Yes -Right Calf (cm) 49.0 -Right Ankle (cm) 27.0 WC - Nurse 2 - General Ulcer CM Notes Start: 09/09/18 09:02 Freq: Status: Active Protocol: Activity Type Activity Date Activity User E-Sign Co-Sign Detail Recorded Client Recorded Date Recorded By Document 09/09/18 09:11 MW [id number] 09/09/18 09:17 MW 09/09/18 09:11 Wound Center Nurse 2 [Procedure/Treatment] #2- RT LAT LE -Time 09:13 -Correct Patient Yes -Correct Side, Site, Position Yes -Correct Procedure Yes -Procedure Performed Yes -Type of Procedure Debridement -Clinical Debridement Subcutaneous -Post Debridement Size (cm) - Length 2.8 -Post Debridement Size (cm) - Width 1.3 -Post Debridement Size (cm) - Depth 0.2 -Total Square Cm 3.64 -Wound/Ulcer Outcome Not Healed -Ulcer Cleansing Rinsed/ Irrigated with Saline -Foul Odor after Cleansing No -Bioengineered Tissue No -Bleeding Controlled with Pressure -Offloading No -Treatment Response Procedure Tolerated Well [See Physician Procedure note for Specifics] Pain Scale: 0-10 Numeric [Pain] -Is Patient Pain Free? Yes Musculoskeletal: No Tenderness to Palpation of Joints or Extremities Lymphatic: No Cervical, Supraclavicular, or Inguinal Adenopathy Neurological: Cranial nerves II-XII grossly intact, Neuro grossly intact Psych/Mental Status: Normal Affect, Appropriate Debridement Note Post-Debridement Measurements/Treatment WC - Nurse 2 - General Ulcer CM Notes Start: 09/09/18 09:02 Freq: Status: Active Protocol: Activity Type Activity Date Activity User E-Sign Co-Sign Detail Recorded Client Recorded Date Recorded By Document 09/09/18 09:11 MW [id number] 09/09/18 09:17 MW 09/09/18 09:11 Wound Center Nurse 2 #2- RT LAT LE -Time 09:13 -Correct Patient Yes -Correct Side, Site, Position Yes -Correct Procedure Yes -Procedure Performed Yes -Type of Procedure Debridement -Clinical Debridement Subcutaneous -Post Debridement Size (cm) - Length 2.8 -Post Debridement Size (cm) - Width 1.3 -Post Debridement Size (cm) - Depth 0.2 -Total Square Cm 3.64 -Wound/Ulcer Outcome Not Healed -Ulcer Cleansing Rinsed/ Irrigated with Saline -Foul Odor after Cleansing No -Bioengineered Tissue No -Bleeding Controlled with Pressure -Offloading No -Treatment Response Procedure Tolerated Well Pain Scale: 0-10 Numeric Is Patient Pain Free? Yes Wound debrided: Right lateral lower leg Type of Debridement: Excisional debridement Anesthesia Used: 5% Lidocaine Gel Depth: Down to and including healthy tissue, in the subcutaneous layer Percentage of wound debrided: 100 Instrument Used: 3mm curette Tissue Removed: Fibrin Severity: Fat Layer Exposed Amount of bleeding with debridement: Mild Bleeding Controlled with: Compression and gauze Patient tolerated procedure well Assessment/Plan Active Problems Diabetes type 2, controlled (Chronic) halfway (current) use of anticoagulants (Chronic) Traumatic skin ulcer with fat layer exposed (Acute) Edema of lower extremity (Acute) Nonhealing nonsurgical wound with fat layer exposed (Acute) Assessment: Nonhealing nonsurgical ulcer right lower leg. Cellulitis. Edema lower extremity. Neuropathic pain to lower extremity Plan: Wash leg with Dial soap. Apply Promogran moistened with Adaptic over top gauze and tape. Double layer Tubigrip. We will refer to Dr. 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 Follow-up in 1 week
--- NOTE | 2018-09-09 09:22 | PN.PCM_ITS ---
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 Has been seeing his family doctor and just putting gauze dressings on. Patient referred himself for nonhealing History of Wound: 78-year-old white male on blood thinners for an unknown reason. Patient was cleaning out his car and was taking a plastic shovel out in a gouged his right lateral lower leg approximately 6 weeks ago has been seeing his family doctor without improvement. Referred himself here has just been using gauze dressings. Cellulitis is noted around very tender and burning pain complaints lower extremity edema also noted. Last ABIs were done in 2013 we will repeat and culture the old open wound. Progress of Wound: The cultures came back rare bacteria for both aerobic and anaerobic. The wound slightly larger this week and still has cellulitis of the whole leg mostly from edema .Patient states that he had a lot of liquid drainage and discharge from the wound compression. Patient states that he had a lot of edema but once he was sitting and elevating the improved. Had a bout of redness cellulitis the whole leg and went to his family doctor was put on antibiotics has no idea what antibiotic he was put on. Patient feels it looks better it looks about the same as it did last week on the cellulitis. Today the ulcer looks clean looks good it has no slough but it was debrided well. The cellulitis around the edge is gone the edema is better in the lower extremity with compression. Arterial brachial studies show good circulation but the venous has some blockages in the GS V and J VS. patient will be referred to Dr. Hinkle for evaluation for surgery. Patient states he has not heard from Dr. Hinkle's office we will call and make the appointment for ourselves. He was approved for epi-fix for his legs through Medicare but his secondary refused he be required to pay the 20% they are going to hold on that. He has been doing well on the Promogran for healing purposes. Lots of self buds are developing in the base of the ulcer - Physical Exam Vital Signs Temp Pulse Resp BP 98.6 F 106 H 18 143/92 H 09/09/18 09:02 09/09/18 09:02 09/09/18 09:02 09/09/18 09:02 General: Oriented x3, Cooperative, Well developed HEENT: Atraumatic, PERRLA Oral: Moist Mucosa Neck: Supple, No JVD Lungs: Clear to auscultation, Normal air movement Cardiovascular: Regular rate, Regular Rhythm Abdomen: Bowel Sounds Present, Soft, Non Tender, No Hepato-splenomegaly Extremities: No clubbing, No edema Skin: Ulcer/ Wound - Right lateral lower leg Wound Measurements and Assessment WC - Nurse 1 - General Ulcer Measurement Start: 09/09/18 09:02 Freq: Status: Active Protocol: Activity Type Activity Date Activity User E-Sign Co-Sign Detail Recorded Client Recorded Date Recorded By Document 09/09/18 09:02 DV [id number] 09/09/18 09:04 DV 09/09/18 09:02 Wound Center Nurse 1 [Ulcer Assessment] #2- RT LAT LE -Combined with other wound No -Current Size (cm) - Length 2.2 -Current Size (cm) - Width 1.1 -Current Size (cm) - Depth 0.1 -Total Square Cm 2.42 -Photo Taken No -Epithelialization Small 1-33% -Tunneling No -Undermining/Tunneling No -Circular Undermining No -Classification - Thickness Full Thickness without Exposed Support Structure -Granulation Amt Large (67-100%) -Granulation Quality Hyper- granulation Red -Slough/Fibrin No -Necrosis Amt Small (1-33%) -Necrotic Tissue Type Adherent Slough -Structure Exposed None/Limited to Skin Breakdown -Texture (Yokasta-wound Skin Appearance) No Abnormality Assessed Scarring -Moisture (Yokasta-wound Skin Appearance Assessed ) Weeping -Color (Yokasta-wound Skin Appearance) No Abnormality Assessed -Temperature (Yokasta-wound Skin No Abnormality Appearance) (Pt Warm) -Tenderness on Palpation (Yokasta-wound No Skin Appearance) -Ulcer Cleansing Rinsed/ Irrigated with Saline -Foul Odor after Cleansing No -Anesthetic Used 5% Lidocaine Gel [Edema Assessment] -Lower Limb Edema Present Yes -Right Calf (cm) 49.0 -Right Ankle (cm) 27.0 WC - Nurse 2 - General Ulcer CM Notes Start: 09/09/18 09:02 Freq: Status: Active Protocol: Activity Type Activity Date Activity User E-Sign Co-Sign Detail Recorded Client Recorded Date Recorded By Document 09/09/18 09:11 MW [id number] 09/09/18 09:17 MW 09/09/18 09:11 Wound Center Nurse 2 [Procedure/Treatment] #2- RT LAT LE -Time 09:13 -Correct Patient Yes -Correct Side, Site, Position Yes -Correct Procedure Yes -Procedure Performed Yes -Type of Procedure Debridement -Clinical Debridement Subcutaneous -Post Debridement Size (cm) - Length 2.8 -Post Debridement Size (cm) - Width 1.3 -Post Debridement Size (cm) - Depth 0.2 -Total Square Cm 3.64 -Wound/Ulcer Outcome Not Healed -Ulcer Cleansing Rinsed/ Irrigated with Saline -Foul Odor after Cleansing No -Bioengineered Tissue No -Bleeding Controlled with Pressure -Offloading No -Treatment Response Procedure Tolerated Well [See Physician Procedure note for Specifics] Pain Scale: 0-10 Numeric [Pain] -Is Patient Pain Free? Yes Musculoskeletal: No Tenderness to Palpation of Joints or Extremities Lymphatic: No Cervical, Supraclavicular, or Inguinal Adenopathy Neurological: Cranial nerves II-XII grossly intact, Neuro grossly intact Psych/Mental Status: Normal Affect, Appropriate Debridement Note Post-Debridement Measurements/Treatment WC - Nurse 2 - General Ulcer CM Notes Start: 09/09/18 09:02 Freq: Status: Active Protocol: Activity Type Activity Date Activity User E-Sign Co-Sign Detail Recorded Client Recorded Date Recorded By Document 09/09/18 09:11 MW [id number] 09/09/18 09:17 MW 09/09/18 09:11 Wound Center Nurse 2 #2- RT LAT LE -Time 09:13 -Correct Patient Yes -Correct Side, Site, Position Yes -Correct Procedure Yes -Procedure Performed Yes -Type of Procedure Debridement -Clinical Debridement Subcutaneous -Post Debridement Size (cm) - Length 2.8 -Post Debridement Size (cm) - Width 1.3 -Post Debridement Size (cm) - Depth 0.2 -Total Square Cm 3.64 -Wound/Ulcer Outcome Not Healed -Ulcer Cleansing Rinsed/ Irrigated with Saline -Foul Odor after Cleansing No -Bioengineered Tissue No -Bleeding Controlled with Pressure -Offloading No -Treatment Response Procedure Tolerated Well Pain Scale: 0-10 Numeric Is Patient Pain Free? Yes Wound debrided: Right lateral lower leg Type of Debridement: Excisional debridement Anesthesia Used: 5% Lidocaine Gel Depth: Down to and including healthy tissue, in the subcutaneous layer Percentage of wound debrided: 100 Instrument Used: 3mm curette Tissue Removed: Fibrin Severity: Fat Layer Exposed Amount of bleeding with debridement: Mild Bleeding Controlled with: Compression and gauze Patient tolerated procedure well Assessment/Plan Active Problems Diabetes type 2, controlled (Chronic) alf (current) use of anticoagulants (Chronic) Traumatic skin ulcer with fat layer exposed (Acute) Edema of lower extremity (Acute) Nonhealing nonsurgical wound with fat layer exposed (Acute) Assessment: Nonhealing nonsurgical ulcer right lower leg. Cellulitis. Edema lower extremity. Neuropathic pain to lower extremity Plan: Wash leg with Dial soap. Apply Promogran moistened with Adaptic over top gauze and tape. Double layer Tubigrip. We will refer to Dr. 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 Follow-up in 1 week
[2018-09-16 08:21] VITALS: BP 149/99; PULSE 98; RESP 18; TEMP 37.3; BMI 43.0
--- NOTE | 2018-09-16 09:00 | PCM.WC.PN ---
(1) Cellulitis of lower extremity Status: Acute Current Visit: Yes Qualifiers: Laterality: right Qualified Code(s): L03.115 - Cellulitis of right lower limb Code(s): L03.119 - Cellulitis of unspecified part of limb (2) Edema of lower extremity Status: Acute Current Visit: Yes Code(s): R60.0 - Localized edema (3) Nonhealing nonsurgical wound with fat layer exposed Status: Acute Current Visit: Yes Code(s): T14.8XXA - Other injury of unspecified body region, initial encounter (4) Traumatic skin ulcer with fat layer exposed Status: Acute Current Visit: Yes Code(s): L98.492 - Non-pressure chronic ulcer of skin of other sites with fat layer exposed (5) Diabetes type 2, controlled Status: Chronic Current Visit: Yes Code(s): E11.9 - Type 2 diabetes mellitus without complications (6) group home (current) use of anticoagulants Status: Chronic Current Visit: Yes Code(s): Z79.01 - 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 Has been seeing his family doctor and just putting gauze dressings on. Patient referred himself for nonhealing History of Wound: 78-year-old white male on blood thinners for an unknown reason. Patient was cleaning out his car and was taking a plastic shovel out in a gouged his right lateral lower leg approximately 6 weeks ago has been seeing his family doctor without improvement. Referred himself here has just been using gauze dressings. Cellulitis is noted around very tender and burning pain complaints lower extremity edema also noted. Last ABIs were done in 2013 we will repeat and culture the old open wound. Progress of Wound: The cultures came back rare bacteria for both aerobic and anaerobic. The wound is smaller this week and still has cellulitis of the whole leg mostly from edema .Patient states that liquid drainage and discharge from the wound compression has stopped. Patient states that he had a lot of edema but once he was sitting and elevating the improved. Patient feels it looks better it looks about the same as it did last week on the cellulitis. Today the ulcer looks clean looks good with new buds of new cells developing inside the wound on Promogran. Arterial brachial studies show good circulation but the venous has some blockages in the GS V and J VS. patient will be referred to Dr. Hinkle for evaluation for surgery. Patient has an appointment in October with Dr. Hinkle's office. He was approved for epi-fix for his legs through Medicare but his secondary refused he be required to pay the 20% they are going to hold on that. He has been doing well on the Promogran for healing purposes. Lots of self buds are developing in the base of the ulcer - Physical Exam Vital Signs Temp Pulse Resp BP 99.1 F 98 18 149/99 H 09/16/18 08:21 09/16/18 08:21 09/16/18 08:21 09/16/18 08:21 General: Oriented x3, Cooperative, Well developed HEENT: Atraumatic, PERRLA Oral: Moist Mucosa Neck: Supple, No JVD Lungs: Clear to auscultation, Normal air movement Cardiovascular: Regular rate, Regular Rhythm Abdomen: Bowel Sounds Present, Soft, Non Tender, No Hepato-splenomegaly Extremities: No clubbing, Edema Skin: Ulcer/ Wound - Right lateral lower leg wound traumatic nonhealing Wound Measurements and Assessment WC - Nurse 1 - General Ulcer Measurement Start: 09/09/18 09:02 Freq: Status: Active Protocol: Activity Type Activity Date Activity User E-Sign Co-Sign Detail Recorded Client Recorded Date Recorded By Document 09/16/18 08:21 AN [id number] 09/16/18 08:32 AN 09/16/18 08:21 Wound Center Nurse 1 [Ulcer Assessment] #2- RT LAT LE -Current Size (cm) - Length 2.4 -Current Size (cm) - Width 0.8 -Current Size (cm) - Depth 0.2 -Total Square Cm 1.92 -Date of Last Picture (Recall this 09/16/18 field) -Photo Taken Yes -Tunneling No -Undermining/Tunneling No -Circular Undermining No -Classification - Thickness Full Thickness without Exposed Support Structure -Exudate Amt Small -Exudate Type Serosanguineous -Wound Margin Distinct, Outline Attached -Granulation Amt Medium (34-66%) -Granulation Quality Red -Slough/Fibrin Yes -Necrosis Amt Medium (34-66%) -Necrotic Tissue Type Adherent Slough -Structure Exposed None/Limited to Skin Breakdown -Texture (Yokasta-wound Skin Appearance) Assessed -Moisture (Yokasta-wound Skin Appearance Assessed ) -Color (Yokasta-wound Skin Appearance) Assessed Erythema -Temperature (Yokasta-wound Skin Hot Appearance) -Tenderness on Palpation (Yokasta-wound Yes Skin Appearance) -Ulcer Cleansing Rinsed/ Irrigated with Saline -Anesthetic Used 5% Lidocaine Gel [Edema Assessment] -Right Calf (cm) 46.6 -Right Ankle (cm) 25.5 WC - Nurse 2 - General Ulcer CM Notes Start: 09/09/18 09:02 Freq: Status: Active Protocol: Activity Type Activity Date Activity User E-Sign Co-Sign Detail Recorded Client Recorded Date Recorded By Document 09/16/18 08:39 MW [id number] 09/16/18 08:45 MW 09/16/18 08:39 Wound Center Nurse 2 [Procedure/Treatment] #2- RT LAT LE -Time 08:41 -Correct Patient Yes -Correct Side, Site, Position Yes -Correct Procedure Yes -Procedure Performed Yes -Type of Procedure Debridement -Clinical Debridement Subcutaneous -Post Debridement Size (cm) - Length 3.0 -Post Debridement Size (cm) - Width 1.0 -Post Debridement Size (cm) - Depth 0.2 -Total Square Cm 3.00 -Wound/Ulcer Outcome Not Healed -Ulcer Cleansing Rinsed/ Irrigated with Saline -Foul Odor after Cleansing No -Bioengineered Tissue No -Bleeding Controlled with Pressure -Offloading No -Treatment Response Procedure Tolerated Well [See Physician Procedure note for Specifics] Pain Scale: 0-10 Numeric [Pain] -Is Patient Pain Free? Yes Musculoskeletal: No Tenderness to Palpation of Joints or Extremities Lymphatic: No Cervical, Supraclavicular, or Inguinal Adenopathy Neurological: Cranial nerves II-XII grossly intact, Neuro grossly intact Psych/Mental Status: Normal Affect, Appropriate Debridement Note Post-Debridement Measurements/Treatment WC - Nurse 2 - General Ulcer CM Notes Start: 09/09/18 09:02 Freq: Status: Active Protocol: Activity Type Activity Date Activity User E-Sign Co-Sign Detail Recorded Client Recorded Date Recorded By Document 09/09/18 09:11 MW [id number] 09/09/18 09:17 MW Document 09/16/18 08:39 MW [id number] 09/16/18 08:45 MW 09/09/18 09/16/18 09:11 08:39 Wound Center Nurse 2 #2- RT LAT LE -Time 09:13 08:41 -Correct Patient Yes Yes -Correct Side, Site, Position Yes Yes -Correct Procedure Yes Yes -Procedure Performed Yes Yes -Type of Procedure Debridement Debridement -Clinical Debridement Subcutaneous Subcutaneous -Post Debridement Size (cm) - Length 2.8 3.0 -Post Debridement Size (cm) - Width 1.3 1.0 -Post Debridement Size (cm) - Depth 0.2 0.2 -Total Square Cm 3.64 3.00 -Wound/Ulcer Outcome Not Healed Not Healed -Ulcer Cleansing Rinsed/ Rinsed/ Irrigated with Irrigated with Saline Saline -Foul Odor after Cleansing No No -Bioengineered Tissue No No -Bleeding Controlled with Pressure Pressure -Offloading No No -Treatment Response Procedure Procedure Tolerated Well Tolerated Well Pain Scale: 0-10 Numeric Is Patient Pain Free? 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 Cellulitis. Edema lower extremity. Neuropathic pain to lower extremity Plan: Wash leg with Dial soap. Apply Promogran moistened with Adaptic over top gauze and tape. Double layer Tubigrip. Appointment with Dr. Hinkle on October 08. Follow up in 1 week
--- NOTE | 2018-09-16 09:05 | PN.PCM_ITS ---
(1) Cellulitis of lower extremity Status: Acute Current Visit: Yes Qualifiers: Laterality: right Qualified Code(s): L03.115 - Cellulitis of right lower limb Code(s): L03.119 - Cellulitis of unspecified part of limb (2) Edema of lower extremity Status: Acute Current Visit: Yes Code(s): R60.0 - Localized edema (3) Nonhealing nonsurgical wound with fat layer exposed Status: Acute Current Visit: Yes Code(s): T14.8XXA - Other injury of unspecified body region, initial encounter (4) Traumatic skin ulcer with fat layer exposed Status: Acute Current Visit: Yes Code(s): L98.492 - Non-pressure chronic ulcer of skin of other sites with fat layer exposed (5) Diabetes type 2, controlled Status: Chronic Current Visit: Yes Code(s): E11.9 - Type 2 diabetes mellitus without complications (6) correction (current) use of anticoagulants Status: Chronic Current Visit: Yes Code(s): Z79.01 - 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 Has been seeing his family doctor and just putting gauze dressings on. Patient referred himself for nonhealing History of Wound: 78-year-old white male on blood thinners for an unknown reason. Patient was cleaning out his car and was taking a plastic shovel out in a gouged his right lateral lower leg approximately 6 weeks ago has been seeing his family doctor without improvement. Referred himself here has just been using gauze dressings. Cellulitis is noted around very tender and burning pain complaints lower extremity edema also noted. Last ABIs were done in 2013 we will repeat and culture the old open wound. Progress of Wound: The cultures came back rare bacteria for both aerobic and anaerobic. The wound is smaller this week and still has cellulitis of the whole leg mostly from edema .Patient states that liquid drainage and discharge from the wound compression has stopped. Patient states that he had a lot of edema but once he was sitting and elevating the improved. Patient feels it looks better it looks about the same as it did last week on the cellulitis. Today the ulcer looks clean looks good with new buds of new cells developing inside the wound on Promogran. Arterial brachial studies show good circulation but the venous has some blockages in the GS V and J VS. patient will be referred to Dr. Hinkle for evaluation for surgery. Patient has an appointment in October with Dr. Hinkle's office. He was approved for epi-fix for his legs through Medicare but his secondary refused he be required to pay the 20% they are going to hold on that. He has been doing well on the Promogran for healing purposes. Lots of self buds are developing in the base of the ulcer - Physical Exam Vital Signs Temp Pulse Resp BP 99.1 F 98 18 149/99 H 09/16/18 08:21 09/16/18 08:21 09/16/18 08:21 09/16/18 08:21 General: Oriented x3, Cooperative, Well developed HEENT: Atraumatic, PERRLA Oral: Moist Mucosa Neck: Supple, No JVD Lungs: Clear to auscultation, Normal air movement Cardiovascular: Regular rate, Regular Rhythm Abdomen: Bowel Sounds Present, Soft, Non Tender, No Hepato-splenomegaly Extremities: No clubbing, Edema Skin: Ulcer/ Wound - Right lateral lower leg wound traumatic nonhealing Wound Measurements and Assessment WC - Nurse 1 - General Ulcer Measurement Start: 09/09/18 09:02 Freq: Status: Active Protocol: Activity Type Activity Date Activity User E-Sign Co-Sign Detail Recorded Client Recorded Date Recorded By Document 09/16/18 08:21 AN [id number] 09/16/18 08:32 AN 09/16/18 08:21 Wound Center Nurse 1 [Ulcer Assessment] #2- RT LAT LE -Current Size (cm) - Length 2.4 -Current Size (cm) - Width 0.8 -Current Size (cm) - Depth 0.2 -Total Square Cm 1.92 -Date of Last Picture (Recall this 09/16/18 field) -Photo Taken Yes -Tunneling No -Undermining/Tunneling No -Circular Undermining No -Classification - Thickness Full Thickness without Exposed Support Structure -Exudate Amt Small -Exudate Type Serosanguineous -Wound Margin Distinct, Outline Attached -Granulation Amt Medium (34-66%) -Granulation Quality Red -Slough/Fibrin Yes -Necrosis Amt Medium (34-66%) -Necrotic Tissue Type Adherent Slough -Structure Exposed None/Limited to Skin Breakdown -Texture (Yokasta-wound Skin Appearance) Assessed -Moisture (Yokasta-wound Skin Appearance Assessed ) -Color (Yokasta-wound Skin Appearance) Assessed Erythema -Temperature (Yokasta-wound Skin Hot Appearance) -Tenderness on Palpation (Yokasta-wound Yes Skin Appearance) -Ulcer Cleansing Rinsed/ Irrigated with Saline -Anesthetic Used 5% Lidocaine Gel [Edema Assessment] -Right Calf (cm) 46.6 -Right Ankle (cm) 25.5 WC - Nurse 2 - General Ulcer CM Notes Start: 09/09/18 09:02 Freq: Status: Active Protocol: Activity Type Activity Date Activity User E-Sign Co-Sign Detail Recorded Client Recorded Date Recorded By Document 09/16/18 08:39 MW [id number] 09/16/18 08:45 MW 09/16/18 08:39 Wound Center Nurse 2 [Procedure/Treatment] #2- RT LAT LE -Time 08:41 -Correct Patient Yes -Correct Side, Site, Position Yes -Correct Procedure Yes -Procedure Performed Yes -Type of Procedure Debridement -Clinical Debridement Subcutaneous -Post Debridement Size (cm) - Length 3.0 -Post Debridement Size (cm) - Width 1.0 -Post Debridement Size (cm) - Depth 0.2 -Total Square Cm 3.00 -Wound/Ulcer Outcome Not Healed -Ulcer Cleansing Rinsed/ Irrigated with Saline -Foul Odor after Cleansing No -Bioengineered Tissue No -Bleeding Controlled with Pressure -Offloading No -Treatment Response Procedure Tolerated Well [See Physician Procedure note for Specifics] Pain Scale: 0-10 Numeric [Pain] -Is Patient Pain Free? Yes Musculoskeletal: No Tenderness to Palpation of Joints or Extremities Lymphatic: No Cervical, Supraclavicular, or Inguinal Adenopathy Neurological: Cranial nerves II-XII grossly intact, Neuro grossly intact Psych/Mental Status: Normal Affect, Appropriate Debridement Note Post-Debridement Measurements/Treatment WC - Nurse 2 - General Ulcer CM Notes Start: 09/09/18 09:02 Freq: Status: Active Protocol: Activity Type Activity Date Activity User E-Sign Co-Sign Detail Recorded Client Recorded Date Recorded By Document 09/09/18 09:11 MW [id number] 09/09/18 09:17 MW Document 09/16/18 08:39 MW [id number] 09/16/18 08:45 MW 09/09/18 09/16/18 09:11 08:39 Wound Center Nurse 2 #2- RT LAT LE -Time 09:13 08:41 -Correct Patient Yes Yes -Correct Side, Site, Position Yes Yes -Correct Procedure Yes Yes -Procedure Performed Yes Yes -Type of Procedure Debridement Debridement -Clinical Debridement Subcutaneous Subcutaneous -Post Debridement Size (cm) - Length 2.8 3.0 -Post Debridement Size (cm) - Width 1.3 1.0 -Post Debridement Size (cm) - Depth 0.2 0.2 -Total Square Cm 3.64 3.00 -Wound/Ulcer Outcome Not Healed Not Healed -Ulcer Cleansing Rinsed/ Rinsed/ Irrigated with Irrigated with Saline Saline -Foul Odor after Cleansing No No -Bioengineered Tissue No No -Bleeding Controlled with Pressure Pressure -Offloading No No -Treatment Response Procedure Procedure Tolerated Well Tolerated Well Pain Scale: 0-10 Numeric Is Patient Pain Free? 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 Cellulitis. Edema lower extremity. Neuropathic pain to lower extremity Plan: Wash leg with Dial soap. Apply Promogran moistened with Adaptic over top gauze and tape. Double layer Tubigrip. Appointment with Dr. Hinkle on October 08. Follow up in 1 week
[2018-09-23 08:17] VITALS: BP 145/83; PULSE 96; RESP 18; TEMP 36.2; BMI 43.0
--- NOTE | 2018-09-23 09:07 | PCM.WC.PN ---
(1) Cellulitis of lower extremity Status: Acute Current Visit: Yes Qualifiers: Laterality: right Qualified Code(s): L03.115 - Cellulitis of right lower limb Code(s): L03.119 - Cellulitis of unspecified part of limb (2) Edema of lower extremity Status: Acute Current Visit: Yes Code(s): R60.0 - Localized edema (3) Nonhealing nonsurgical wound with fat layer exposed Status: Acute Current Visit: Yes Code(s): T14.8XXA - Other injury of unspecified body region, initial encounter (4) Traumatic skin ulcer with fat layer exposed Status: Acute Current Visit: Yes Code(s): L98.492 - Non-pressure chronic ulcer of skin of other sites with fat layer exposed (5) Diabetes type 2, controlled Status: Chronic Current Visit: Yes Code(s): E11.9 - Type 2 diabetes mellitus without complications (6) halfway (current) use of anticoagulants Status: Chronic Current Visit: Yes Code(s): Z79.01 - terminal gauger (current) use of 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 Has been seeing his family doctor and just putting gauze dressings on. Patient referred himself for nonhealing History of Wound: 78-year-old white male on blood thinners for an unknown reason. Patient was cleaning out his car and was taking a plastic shovel out in a gouged his right lateral lower leg approximately 6 weeks ago has been seeing his family doctor without improvement. Referred himself here has just been using gauze dressings. Cellulitis is noted around very tender and burning pain complaints lower extremity edema also noted. Last ABIs were done in 2013 we will repeat and culture the old open wound. Progress of Wound: The cultures came back rare bacteria for both aerobic and anaerobic. The wound is smaller this week and still has cellulitis of the whole leg mostly from edema.Patient complaining of right upper thigh pain on and off right whole leg from groin to ankle slightly more swollen than the left. This is been going on and off since we started treatments with him he is already on anticoagulation therapy but we will get an ultrasound today stat of his right leg from groin to ankle. Patient sleeps in the recliner not in a bed which adds to his difficulty in his legs. Today the ulcer looks clean looks good with new buds of new cells developing inside the wound on Promogran. Arterial brachial studies show good circulation but the venous has some blockages in the GS V and J VS. Patient has and appointment with Dr. Hinkle for evaluation for surgery October 12. - Physical Exam Vital Signs Temp Pulse Resp BP 97.2 F L 96 18 145/83 H 09/23/18 08:17 09/23/18 08:17 09/23/18 08:17 09/23/18 08:17 General: Oriented x3, Cooperative, Well developed HEENT: Atraumatic, PERRLA Oral: Moist Mucosa Neck: Supple, No JVD Lungs: Clear to auscultation, Normal air movement Cardiovascular: Regular rate, Regular Rhythm Abdomen: Bowel Sounds Present, Soft, Non Tender, No Hepato-splenomegaly Extremities: No clubbing, Edema, - - Cellulitis Skin: - - Right lateral lower leg wound Wound Measurements and Assessment WC - Nurse 1 - General Ulcer Measurement Start: 09/09/18 09:02 Freq: Status: Active Protocol: Activity Type Activity Date Activity User E-Sign Co-Sign Detail Recorded Client Recorded Date Recorded By Document 09/23/18 08:17 DL [id number] 09/23/18 08:23 DL 09/23/18 08:17 Wound Center Nurse 1 [Ulcer Assessment] #2- RT LAT LE -Current Size (cm) - Length 2.2 -Current Size (cm) - Width 0.7 -Current Size (cm) - Depth 0.1 -Total Square Cm 1.54 -Photo Taken No -Exudate Amt Small -Exudate Type Serosanguineous -Wound Margin Distinct, Outline Attached -Granulation Amt Medium (34-66%) -Granulation Quality Red -Necrosis Amt Medium (34-66%) -Necrotic Tissue Type Adherent Slough -Structure Exposed N/A -Texture (Yokasta-wound Skin Appearance) Scarring -Moisture (Yokasta-wound Skin Appearance Dry/Scaly ) -Color (Yokasta-wound Skin Appearance) Hemosiderin Staining -Temperature (Yokasta-wound Skin No Abnormality Appearance) (Pt Warm) -Tenderness on Palpation (Yokasta-wound No Skin Appearance) -Ulcer Cleansing Rinsed/ Irrigated with Saline -Foul Odor after Cleansing No -Anesthetic Used 5% Lidocaine Gel [Edema Assessment] -Right Calf (cm) 43.2 -Right Ankle (cm) 24.2 -Left Calf (cm) 41.5 -Left Ankle (cm) 25 WC - Nurse 2 - General Ulcer CM Notes Start: 09/09/18 09:02 Freq: Status: Active Protocol: Activity Type Activity Date Activity User E-Sign Co-Sign Detail Recorded Client Recorded Date Recorded By Document 09/23/18 08:47 MW [id number] 09/23/18 08:49 MW 09/23/18 08:47 Wound Center Nurse 2 [Procedure/Treatment] #2- RT LAT LE -Time 08:47 -Correct Patient Yes -Correct Side, Site, Position Yes -Correct Procedure Yes -Procedure Performed Yes -Type of Procedure Debridement -Clinical Debridement Subcutaneous -Post Debridement Size (cm) - Length 1.3 -Post Debridement Size (cm) - Width 0.7 -Post Debridement Size (cm) - Depth 0.2 -Total Square Cm 0.91 -Wound/Ulcer Outcome Not Healed -Ulcer Cleansing Rinsed/ Irrigated with Saline -Foul Odor after Cleansing No -Bioengineered Tissue No -Bleeding Controlled with Pressure -Offloading No -Treatment Response Procedure Tolerated Well [See Physician Procedure note for Specifics] Pain Scale: 0-10 Numeric [Pain] -Is Patient Pain Free? Yes Musculoskeletal: No Tenderness to Palpation of Joints or Extremities Lymphatic: No Cervical, Supraclavicular, or Inguinal Adenopathy Neurological: Cranial nerves II-XII grossly intact, Neuro grossly intact Psych/Mental Status: Normal Affect, Appropriate Debridement Note Post-Debridement Measurements/Treatment WC - Nurse 2 - General Ulcer CM Notes Start: 09/09/18 09:02 Freq: Status: Active Protocol: Activity Type Activity Date Activity User E-Sign Co-Sign Detail Recorded Client Recorded Date Recorded By Document 09/09/18 09:11 MW [id number] 09/09/18 09:17 MW Document 09/16/18 08:39 MW [id number] 09/16/18 08:45 MW Document 09/23/18 08:47 MW [id number] 09/23/18 08:49 MW 09/09/18 09/16/18 09/23/18 09:11 08:39 08:47 Wound Center Nurse 2 #2- RT LAT LE -Time 09:13 08:41 08:47 -Correct Patient Yes Yes Yes -Correct Side, Site, Position Yes Yes Yes -Correct Procedure Yes Yes Yes -Procedure Performed Yes Yes Yes -Type of Procedure Debridement Debridement Debridement -Clinical Debridement Subcutaneous Subcutaneous Subcutaneous -Post Debridement Size (cm) - Length 2.8 3.0 1.3 -Post Debridement Size (cm) - Width 1.3 1.0 0.7 -Post Debridement Size (cm) - Depth 0.2 0.2 0.2 -Total Square Cm 3.64 3.00 0.91 -Wound/Ulcer Outcome Not Healed Not Healed Not Healed -Ulcer Cleansing Rinsed/ Rinsed/ Rinsed/ Irrigated with Irrigated with Irrigated with Saline Saline Saline -Foul Odor after Cleansing No No No -Bioengineered Tissue No No No -Bleeding Controlled with Pressure Pressure Pressure -Offloading No No No -Treatment Response Procedure Procedure Procedure Tolerated Well Tolerated Well Tolerated Well Pain Scale: 0-10 Numeric Is Patient Pain Free? 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 Cellulitis. Edema lower extremity. Neuropathic pain to lower extremity Plan: Wash leg with Dial soap. Apply Promogran moistened with Adaptic over top gauze and tape. Double layer Tubigrip. Stat ultrasound right leg will call with results. Appointment with Dr. Hinkle on October 12. Follow up in 1 week
--- NOTE | 2018-09-23 09:11 | PN.PCM_ITS ---
(1) Cellulitis of lower extremity Status: Acute Current Visit: Yes Qualifiers: Laterality: right Qualified Code(s): L03.115 - Cellulitis of right lower limb Code(s): L03.119 - Cellulitis of unspecified part of limb (2) Edema of lower extremity Status: Acute Current Visit: Yes Code(s): R60.0 - Localized edema (3) Nonhealing nonsurgical wound with fat layer exposed Status: Acute Current Visit: Yes Code(s): T14.8XXA - Other injury of unspecified body region, initial encounter (4) Traumatic skin ulcer with fat layer exposed Status: Acute Current Visit: Yes Code(s): L98.492 - Non-pressure chronic ulcer of skin of other sites with fat layer exposed (5) Diabetes type 2, controlled Status: Chronic Current Visit: Yes Code(s): E11.9 - Type 2 diabetes mellitus without complications (6) senior living (current) use of anticoagulants Status: Chronic Current Visit: Yes Code(s): Z79.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 Has been seeing his family doctor and just putting gauze dressings on. Patient referred himself for nonhealing History of Wound: 78-year-old white male on blood thinners for an unknown reason. Patient was cleaning out his car and was taking a plastic shovel out in a gouged his right lateral lower leg approximately 6 weeks ago has been seeing his family doctor without improvement. Referred himself here has just been using gauze dressings. Cellulitis is noted around very tender and burning pain complaints lower extremity edema also noted. Last ABIs were done in 2013 we will repeat and culture the old open wound. Progress of Wound: The cultures came back rare bacteria for both aerobic and anaerobic. The wound is smaller this week and still has cellulitis of the whole leg mostly from edema.Patient complaining of right upper thigh pain on and off right whole leg from groin to ankle slightly more swollen than the left. This is been going on and off since we started treatments with him he is already on anticoagulation therapy but we will get an ultrasound today stat of his right leg from groin to ankle. Patient sleeps in the recliner not in a bed which adds to his difficulty in his legs. Today the ulcer looks clean looks good with new buds of new cells developing inside the wound on Promogran. Arterial brachial studies show good circulation but the venous has some blockages in the GS V and J VS. Patient has and appointment with Dr. Hinkle for evaluation for surgery October 12. - Physical Exam Vital Signs Temp Pulse Resp BP 97.2 F L 96 18 145/83 H 09/23/18 08:17 09/23/18 08:17 09/23/18 08:17 09/23/18 08:17 General: Oriented x3, Cooperative, Well developed HEENT: Atraumatic, PERRLA Oral: Moist Mucosa Neck: Supple, No JVD Lungs: Clear to auscultation, Normal air movement Cardiovascular: Regular rate, Regular Rhythm Abdomen: Bowel Sounds Present, Soft, Non Tender, No Hepato-splenomegaly Extremities: No clubbing, Edema, - - Cellulitis Skin: - - Right lateral lower leg wound Wound Measurements and Assessment WC - Nurse 1 - General Ulcer Measurement Start: 09/09/18 09:02 Freq: Status: Active Protocol: Activity Type Activity Date Activity User E-Sign Co-Sign Detail Recorded Client Recorded Date Recorded By Document 09/23/18 08:17 DL [id number] 09/23/18 08:23 DL 09/23/18 08:17 Wound Center Nurse 1 [Ulcer Assessment] #2- RT LAT LE -Current Size (cm) - Length 2.2 -Current Size (cm) - Width 0.7 -Current Size (cm) - Depth 0.1 -Total Square Cm 1.54 -Photo Taken No -Exudate Amt Small -Exudate Type Serosanguineous -Wound Margin Distinct, Outline Attached -Granulation Amt Medium (34-66%) -Granulation Quality Red -Necrosis Amt Medium (34-66%) -Necrotic Tissue Type Adherent Slough -Structure Exposed N/A -Texture (Yokasta-wound Skin Appearance) Scarring -Moisture (Yokasta-wound Skin Appearance Dry/Scaly ) -Color (Yokasta-wound Skin Appearance) Hemosiderin Staining -Temperature (Yokasta-wound Skin No Abnormality Appearance) (Pt Warm) -Tenderness on Palpation (Yokasta-wound No Skin Appearance) -Ulcer Cleansing Rinsed/ Irrigated with Saline -Foul Odor after Cleansing No -Anesthetic Used 5% Lidocaine Gel [Edema Assessment] -Right Calf (cm) 43.2 -Right Ankle (cm) 24.2 -Left Calf (cm) 41.5 -Left Ankle (cm) 25 WC - Nurse 2 - General Ulcer CM Notes Start: 09/09/18 09:02 Freq: Status: Active Protocol: Activity Type Activity Date Activity User E-Sign Co-Sign Detail Recorded Client Recorded Date Recorded By Document 09/23/18 08:47 MW [id number] 09/23/18 08:49 MW 09/23/18 08:47 Wound Center Nurse 2 [Procedure/Treatment] #2- RT LAT LE -Time 08:47 -Correct Patient Yes -Correct Side, Site, Position Yes -Correct Procedure Yes -Procedure Performed Yes -Type of Procedure Debridement -Clinical Debridement Subcutaneous -Post Debridement Size (cm) - Length 1.3 -Post Debridement Size (cm) - Width 0.7 -Post Debridement Size (cm) - Depth 0.2 -Total Square Cm 0.91 -Wound/Ulcer Outcome Not Healed -Ulcer Cleansing Rinsed/ Irrigated with Saline -Foul Odor after Cleansing No -Bioengineered Tissue No -Bleeding Controlled with Pressure -Offloading No -Treatment Response Procedure Tolerated Well [See Physician Procedure note for Specifics] Pain Scale: 0-10 Numeric [Pain] -Is Patient Pain Free? Yes Musculoskeletal: No Tenderness to Palpation of Joints or Extremities Lymphatic: No Cervical, Supraclavicular, or Inguinal Adenopathy Neurological: Cranial nerves II-XII grossly intact, Neuro grossly intact Psych/Mental Status: Normal Affect, Appropriate Debridement Note Post-Debridement Measurements/Treatment WC - Nurse 2 - General Ulcer CM Notes Start: 09/09/18 09:02 Freq: Status: Active Protocol: Activity Type Activity Date Activity User E-Sign Co-Sign Detail Recorded Client Recorded Date Recorded By Document 09/09/18 09:11 MW [id number] 09/09/18 09:17 MW Document 09/16/18 08:39 MW [id number] 09/16/18 08:45 MW Document 09/23/18 08:47 MW [id number] 09/23/18 08:49 MW 09/09/18 09/16/18 09/23/18 09:11 08:39 08:47 Wound Center Nurse 2 #2- RT LAT LE -Time 09:13 08:41 08:47 -Correct Patient Yes Yes Yes -Correct Side, Site, Position Yes Yes Yes -Correct Procedure Yes Yes Yes -Procedure Performed Yes Yes Yes -Type of Procedure Debridement Debridement Debridement -Clinical Debridement Subcutaneous Subcutaneous Subcutaneous -Post Debridement Size (cm) - Length 2.8 3.0 1.3 -Post Debridement Size (cm) - Width 1.3 1.0 0.7 -Post Debridement Size (cm) - Depth 0.2 0.2 0.2 -Total Square Cm 3.64 3.00 0.91 -Wound/Ulcer Outcome Not Healed Not Healed Not Healed -Ulcer Cleansing Rinsed/ Rinsed/ Rinsed/ Irrigated with Irrigated with Irrigated with Saline Saline Saline -Foul Odor after Cleansing No No No -Bioengineered Tissue No No No -Bleeding Controlled with Pressure Pressure Pressure -Offloading No No No -Treatment Response Procedure Procedure Procedure Tolerated Well Tolerated Well Tolerated Well Pain Scale: 0-10 Numeric Is Patient Pain Free? 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 Cellulitis. Edema lower extremity. Neuropathic pain to lower extremity Plan: Wash leg with Dial soap. Apply Promogran moistened with Adaptic over top gauze and tape. Double layer Tubigrip. Stat ultrasound right leg will call with results. Appointment with Dr. Hinkle on October 12. Follow up in 1 week
--- NOTE | 2018-09-23 09:56 | VDLE_ITS ---
Reason For Study: DVT RIGHT LEFT GSV is normal. CFV is compressible, spontaneous, phasic, CFV is compressible, spontaneous, phasic, competent, and demonstrates normal competent and demonstrates normal augmentation. augmentation. FV is compressible, spontaneous, phasic, competent and demonstrates normal augmentation. POP V is compressible, spontaneous, phasic, competent and demonstrates normal augmentation. T/P Trunk is compressible. PTV is compressible. RT PerV is compressible. Difficult to visualize Rt FV distal due to pt body habitus/edema. Procedure Exam performed in department. A preliminary report was called and/or faxed to Natasha Paige. Interpretation Summary Deep veins of the right lower extremity are patent and compressible segmentally. There is no evidence of right lower extremity deep vein thrombosis. Valvular competence appears intact within the proximal deep venous system on the right . The right greater saphenous vein appears patent and compressible segmentally. Portions of the right femoral vein were not well visualized due to edema and the patient's body habitus. Ordering Physician: Natasha Paige Referring Physician: Vladislav Donald Performed By: Rissa Riggs, AALIYAH, RVT
[2018-09-30 08:10] VITALS: BP 159/96; PULSE 92; RESP 18; TEMP 36.6; BMI 43.0
--- NOTE | 2018-09-30 08:45 | PCM.WC.PN ---
(1) Cellulitis of lower extremity Status: Acute Current Visit: Yes Qualifiers: Laterality: right Qualified Code(s): L03.115 - Cellulitis of right lower limb Code(s): L03.119 - Cellulitis of unspecified part of limb (2) Edema of lower extremity Status: Acute Current Visit: Yes Code(s): R60.0 - Localized edema (3) Nonhealing nonsurgical wound with fat layer exposed Status: Acute Current Visit: Yes Code(s): T14.8XXA - Other injury of unspecified body region, initial encounter (4) Traumatic skin ulcer with fat layer exposed Status: Acute Current Visit: Yes Code(s): L98.492 - Non-pressure chronic ulcer of skin of other sites with fat layer exposed (5) Diabetes type 2, controlled Status: Chronic Current Visit: Yes Code(s): E11.9 - Type 2 diabetes mellitus without complications (6) snf (current) use of anticoagulants Status: Chronic Current Visit: Yes Code(s): Z79.01 - rn long term care (current) use of 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 Has been seeing his family doctor and just putting gauze dressings on. Patient referred himself for nonhealing History of Wound: 78-year-old white male on blood thinners for an unknown reason. Patient was cleaning out his car and was taking a plastic shovel out in a gouged his right lateral lower leg approximately 6 weeks ago has been seeing his family doctor without improvement. Referred himself here has just been using gauze dressings. Cellulitis is noted around very tender and burning pain complaints lower extremity edema also noted. Last ABIs were done in 2013 we will repeat and culture the old open wound. Progress of Wound: The cultures came back rare bacteria for both aerobic and anaerobic. The wound is smaller this week and still has cellulitis of the whole leg mostly from edema.STAT US R leg was neg last week. Patient notified to elevate leg more. Patient sleeps in the recliner not in a bed which adds to his difficulty in his legs. Today the ulcer looks clean looks good with new buds of new cells developing inside the wound on Promogran. Arterial brachial studies show good circulation but the venous has some blockages in the GS V and J VS. Patient has and appointment with Dr. Hinkle for evaluation for surgery October 12. - Physical Exam Vital Signs Temp Pulse Resp BP 98 F 92 18 159/96 H 09/30/18 08:10 09/30/18 08:10 09/30/18 08:10 09/30/18 08:10 General: Oriented x3, Cooperative, Well developed HEENT: Atraumatic, PERRLA Oral: Moist Mucosa Neck: Supple, No JVD Lungs: Clear to auscultation, Normal air movement Cardiovascular: Regular rate, Regular Rhythm Abdomen: Bowel Sounds Present, Soft, Non Tender, No Hepato-splenomegaly Extremities: No clubbing, Edema, - - Right lower leg ulcer from trauma Skin: Rash Present Wound Measurements and Assessment WC - Nurse 1 - General Ulcer Measurement Start: 09/09/18 09:02 Freq: Status: Active Protocol: Activity Type Activity Date Activity User E-Sign Co-Sign Detail Recorded Client Recorded Date Recorded By Document 09/30/18 08:10 AN [id number] 09/30/18 08:22 AN 09/30/18 08:10 Wound Center Nurse 1 [Ulcer Assessment] #2- RT LAT LE -Current Size (cm) - Length 2.2 -Current Size (cm) - Width 0.8 -Current Size (cm) - Depth 0.1 -Total Square Cm 1.76 -Photo Taken No -Tunneling No -Undermining/Tunneling No -Circular Undermining No -Classification - Thickness Full Thickness without Exposed Support Structure -Exudate Amt Medium -Exudate Type Serosanguineous -Wound Margin Distinct, Outline Attached -Granulation Amt Medium (34-66%) -Granulation Quality Red -Slough/Fibrin Yes -Necrosis Amt Medium (34-66%) -Necrotic Tissue Type Adherent Slough -Structure Exposed None/Limited to Skin Breakdown -Texture (Yokasta-wound Skin Appearance) Assessed Localized Edema -Moisture (Yokasta-wound Skin Appearance Assessed ) -Color (Yokasta-wound Skin Appearance) Assessed Erythema -Temperature (Yokasta-wound Skin No Abnormality Appearance) (Pt Warm) -Tenderness on Palpation (Yokasta-wound Yes Skin Appearance) -Ulcer Cleansing Rinsed/ Irrigated with Saline -Foul Odor after Cleansing Yes -Anesthetic Used 4% Lidocaine Solution 5% Lidocaine Gel [Edema Assessment] -Right Calf (cm) 46 -Right Ankle (cm) 26.7 WC - Nurse 2 - General Ulcer CM Notes Start: 09/09/18 09:02 Freq: Status: Active Protocol: Activity Type Activity Date Activity User E-Sign Co-Sign Detail Recorded Client Recorded Date Recorded By Document 09/30/18 08:32 MW [id number] 09/30/18 08:35 MW 09/30/18 08:32 Wound Center Nurse 2 [Procedure/Treatment] #2- RT LAT LE -Time 08:34 -Correct Patient Yes -Correct Side, Site, Position Yes -Correct Procedure Yes -Procedure Performed Yes -Type of Procedure Debridement -Clinical Debridement Subcutaneous -Post Debridement Size (cm) - Length 2.4 -Post Debridement Size (cm) - Width 0.7 -Post Debridement Size (cm) - Depth 0.2 -Total Square Cm 1.68 -Wound/Ulcer Outcome Not Healed -Ulcer Cleansing Rinsed/ Irrigated with Saline -Foul Odor after Cleansing No -Bioengineered Tissue No -Bleeding Controlled with Pressure -Offloading No -Treatment Response Procedure Tolerated Well [See Physician Procedure note for Specifics] Pain Scale: 0-10 Numeric [Pain] -Is Patient Pain Free? Yes Musculoskeletal: No Tenderness to Palpation of Joints or Extremities Lymphatic: No Cervical, Supraclavicular, or Inguinal Adenopathy Neurological: Cranial nerves II-XII grossly intact, Neuro grossly intact Psych/Mental Status: Normal Affect, Appropriate Debridement Note Post-Debridement Measurements/Treatment - Nurse 2 - General Ulcer CM Notes Start: 09/09/18 09:02 Freq: Status: Active Protocol: Activity Type Activity Date Activity User E-Sign Co-Sign Detail Recorded Client Recorded Date Recorded By Document 09/09/18 09:11 MW [id number] 09/09/18 09:17 MW Document 09/16/18 08:39 MW [id number] 09/16/18 08:45 MW Document 09/23/18 08:47 MW [id number] 09/23/18 08:49 MW Document 09/30/18 08:32 MW [id number] 09/30/18 08:35 MW 09/09/18 09/16/18 09/23/18 09:11 08:39 08:47 Wound Center Nurse 2 #2- RT LAT LE -Time 09:13 08:41 08:47 -Correct Patient Yes Yes Yes -Correct Side, Site, Position Yes Yes Yes -Correct Procedure Yes Yes Yes -Procedure Performed Yes Yes Yes -Type of Procedure Debridement Debridement Debridement -Clinical Debridement Subcutaneous Subcutaneous Subcutaneous -Post Debridement Size (cm) - Length 2.8 3.0 1.3 -Post Debridement Size (cm) - Width 1.3 1.0 0.7 -Post Debridement Size (cm) - Depth 0.2 0.2 0.2 -Total Square Cm 3.64 3.00 0.91 -Wound/Ulcer Outcome Not Healed Not Healed Not Healed -Ulcer Cleansing Rinsed/ Rinsed/ Rinsed/ Irrigated with Irrigated with Irrigated with Saline Saline Saline -Foul Odor after Cleansing No No No -Bioengineered Tissue No No No -Bleeding Controlled with Pressure Pressure Pressure -Offloading No No No -Treatment Response Procedure Procedure Procedure Tolerated Well Tolerated Well Tolerated Well Pain Scale: 0-10 Numeric Is Patient Pain Free? Yes Yes Yes 09/30/18 08:32 Wound Center Nurse 2 #2- RT LAT LE -Time 08:34 -Correct Patient Yes -Correct Side, Site, Position Yes -Correct Procedure Yes -Procedure Performed Yes -Type of Procedure Debridement -Clinical Debridement Subcutaneous -Post Debridement Size (cm) - Length 2.4 -Post Debridement Size (cm) - Width 0.7 -Post Debridement Size (cm) - Depth 0.2 -Total Square Cm 1.68 -Wound/Ulcer Outcome Not Healed -Ulcer Cleansing Rinsed/ Irrigated with Saline -Foul Odor after Cleansing No -Bioengineered Tissue No -Bleeding Controlled with Pressure -Offloading No -Treatment Response Procedure Tolerated Well Pain Scale: 0-10 Numeric Is Patient Pain Free? Yes Wound debrided: R lat lower leg Type of Debridement: Excisional debridement Anesthesia Used: 5% Lidocaine Gel Depth: Down to and including healthy tissue, in the subcutaneous layer Percentage of wound debrided: 100 Instrument Used: 5mm curette Tissue Removed: fibrin and devitalized tissue Severity: Limited To Skin Breakdown Amount of bleeding with debridement: Mild Bleeding Controlled with: Compression and gauze Patient tolerated procedure well Assessment/Plan Active Problems Diabetes type 2, controlled (Chronic) snf (current) use of anticoagulants (Chronic) Traumatic skin ulcer with fat layer exposed (Acute) Edema of lower extremity (Acute) Cellulitis of lower extremity (Acute) Nonhealing nonsurgical wound with fat layer exposed (Acute) Assessment: Nonhealing nonsurgical ulcer right lower leg. Cellulitis. Edema lower extremity. Neuropathic pain to lower extremity Plan: Wash leg with Dial soap. Apply Promogran moistened with Adaptic over top gauze and tape. Double layer Tubigrip. Appointment with Dr. Hinkle on October 12. Follow up in 1 week
--- NOTE | 2018-09-30 08:50 | PN.PCM_ITS ---
(1) Cellulitis of lower extremity Status: Acute Current Visit: Yes Qualifiers: Laterality: right Qualified Code(s): L03.115 - Cellulitis of right lower limb Code(s): L03.119 - Cellulitis of unspecified part of limb (2) Edema of lower extremity Status: Acute Current Visit: Yes Code(s): R60.0 - Localized edema (3) Nonhealing nonsurgical wound with fat layer exposed Status: Acute Current Visit: Yes Code(s): T14.8XXA - Other injury of unspecified body region, initial encounter (4) Traumatic skin ulcer with fat layer exposed Status: Acute Current Visit: Yes Code(s): L98.492 - Non-pressure chronic ulcer of skin of other sites with fat layer exposed (5) Diabetes type 2, controlled Status: Chronic Current Visit: Yes Code(s): E11.9 - Type 2 diabetes mellitus without complications (6) long-term (current) use of anticoagulants Status: Chronic Current Visit: Yes Code(s): 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 Has been seeing his family doctor and just putting gauze dressings on. Patient referred himself for nonhealing History of Wound: 78-year-old white male on blood thinners for an unknown reason. Patient was cleaning out his car and was taking a plastic shovel out in a gouged his right lateral lower leg approximately 6 weeks ago has been seeing his family doctor without improvement. Referred himself here has just been using gauze dressings. Cellulitis is noted around very tender and burning pain complaints lower extremity edema also noted. Last ABIs were done in 2013 we will repeat and culture the old open wound. Progress of Wound: The cultures came back rare bacteria for both aerobic and anaerobic. The wound is smaller this week and still has cellulitis of the whole leg mostly from edema.STAT US R leg was neg last week. Patient notified to elevate leg more. Patient sleeps in the recliner not in a bed which adds to his difficulty in his legs. Today the ulcer looks clean looks good with new buds of new cells developing inside the wound on Promogran. Arterial brachial studies show good circulation but the venous has some blockages in the GS V and J VS. Patient has and appointment with Dr. Hinkle for evaluation for surgery October 12. - Physical Exam Vital Signs Temp Pulse Resp BP 98 F 92 18 159/96 H 09/30/18 08:10 09/30/18 08:10 09/30/18 08:10 09/30/18 08:10 General: Oriented x3, Cooperative, Well developed HEENT: Atraumatic, PERRLA Oral: Moist Mucosa Neck: Supple, No JVD Lungs: Clear to auscultation, Normal air movement Cardiovascular: Regular rate, Regular Rhythm Abdomen: Bowel Sounds Present, Soft, Non Tender, No Hepato-splenomegaly Extremities: No clubbing, Edema, - - Right lower leg ulcer from trauma Skin: Rash Present Wound Measurements and Assessment WC - Nurse 1 - General Ulcer Measurement Start: 09/09/18 09:02 Freq: Status: Active Protocol: Activity Type Activity Date Activity User E-Sign Co-Sign Detail Recorded Client Recorded Date Recorded By Document 09/30/18 08:10 AN [id number] 09/30/18 08:22 AN 09/30/18 08:10 Wound Center Nurse 1 [Ulcer Assessment] #2- RT LAT LE -Current Size (cm) - Length 2.2 -Current Size (cm) - Width 0.8 -Current Size (cm) - Depth 0.1 -Total Square Cm 1.76 -Photo Taken No -Tunneling No -Undermining/Tunneling No -Circular Undermining No -Classification - Thickness Full Thickness without Exposed Support Structure -Exudate Amt Medium -Exudate Type Serosanguineous -Wound Margin Distinct, Outline Attached -Granulation Amt Medium (34-66%) -Granulation Quality Red -Slough/Fibrin Yes -Necrosis Amt Medium (34-66%) -Necrotic Tissue Type Adherent Slough -Structure Exposed None/Limited to Skin Breakdown -Texture (Yokasta-wound Skin Appearance) Assessed Localized Edema -Moisture (Yokasta-wound Skin Appearance Assessed ) -Color (Yokasta-wound Skin Appearance) Assessed Erythema -Temperature (Yokasta-wound Skin No Abnormality Appearance) (Pt Warm) -Tenderness on Palpation (Yokasta-wound Yes Skin Appearance) -Ulcer Cleansing Rinsed/ Irrigated with Saline -Foul Odor after Cleansing Yes -Anesthetic Used 4% Lidocaine Solution 5% Lidocaine Gel [Edema Assessment] -Right Calf (cm) 46 -Right Ankle (cm) 26.7 WC - Nurse 2 - General Ulcer CM Notes Start: 09/09/18 09:02 Freq: Status: Active Protocol: Activity Type Activity Date Activity User E-Sign Co-Sign Detail Recorded Client Recorded Date Recorded By Document 09/30/18 08:32 MW [id number] 09/30/18 08:35 MW 09/30/18 08:32 Wound Center Nurse 2 [Procedure/Treatment] #2- RT LAT LE -Time 08:34 -Correct Patient Yes -Correct Side, Site, Position Yes -Correct Procedure Yes -Procedure Performed Yes -Type of Procedure Debridement -Clinical Debridement Subcutaneous -Post Debridement Size (cm) - Length 2.4 -Post Debridement Size (cm) - Width 0.7 -Post Debridement Size (cm) - Depth 0.2 -Total Square Cm 1.68 -Wound/Ulcer Outcome Not Healed -Ulcer Cleansing Rinsed/ Irrigated with Saline -Foul Odor after Cleansing No -Bioengineered Tissue No -Bleeding Controlled with Pressure -Offloading No -Treatment Response Procedure Tolerated Well [See Physician Procedure note for Specifics] Pain Scale: 0-10 Numeric [Pain] -Is Patient Pain Free? Yes Musculoskeletal: No Tenderness to Palpation of Joints or Extremities Lymphatic: No Cervical, Supraclavicular, or Inguinal Adenopathy Neurological: Cranial nerves II-XII grossly intact, Neuro grossly intact Psych/Mental Status: Normal Affect, Appropriate Debridement Note Post-Debridement Measurements/Treatment - Nurse 2 - General Ulcer CM Notes Start: 09/09/18 09:02 Freq: Status: Active Protocol: Activity Type Activity Date Activity User E-Sign Co-Sign Detail Recorded Client Recorded Date Recorded By Document 09/09/18 09:11 MW [id number] 09/09/18 09:17 MW Document 09/16/18 08:39 MW [id number] 09/16/18 08:45 MW Document 09/23/18 08:47 MW [id number] 09/23/18 08:49 MW Document 09/30/18 08:32 MW [id number] 09/30/18 08:35 MW 09/09/18 09/16/18 09/23/18 09:11 08:39 08:47 Wound Center Nurse 2 #2- RT LAT LE -Time 09:13 08:41 08:47 -Correct Patient Yes Yes Yes -Correct Side, Site, Position Yes Yes Yes -Correct Procedure Yes Yes Yes -Procedure Performed Yes Yes Yes -Type of Procedure Debridement Debridement Debridement -Clinical Debridement Subcutaneous Subcutaneous Subcutaneous -Post Debridement Size (cm) - Length 2.8 3.0 1.3 -Post Debridement Size (cm) - Width 1.3 1.0 0.7 -Post Debridement Size (cm) - Depth 0.2 0.2 0.2 -Total Square Cm 3.64 3.00 0.91 -Wound/Ulcer Outcome Not Healed Not Healed Not Healed -Ulcer Cleansing Rinsed/ Rinsed/ Rinsed/ Irrigated with Irrigated with Irrigated with Saline Saline Saline -Foul Odor after Cleansing No No No -Bioengineered Tissue No No No -Bleeding Controlled with Pressure Pressure Pressure -Offloading No No No -Treatment Response Procedure Procedure Procedure Tolerated Well Tolerated Well Tolerated Well Pain Scale: 0-10 Numeric Is Patient Pain Free? Yes Yes Yes 09/30/18 08:32 Wound Center Nurse 2 #2- RT LAT LE -Time 08:34 -Correct Patient Yes -Correct Side, Site, Position Yes -Correct Procedure Yes -Procedure Performed Yes -Type of Procedure Debridement -Clinical Debridement Subcutaneous -Post Debridement Size (cm) - Length 2.4 -Post Debridement Size (cm) - Width 0.7 -Post Debridement Size (cm) - Depth 0.2 -Total Square Cm 1.68 -Wound/Ulcer Outcome Not Healed -Ulcer Cleansing Rinsed/ Irrigated with Saline -Foul Odor after Cleansing No -Bioengineered Tissue No -Bleeding Controlled with Pressure -Offloading No -Treatment Response Procedure Tolerated Well Pain Scale: 0-10 Numeric Is Patient Pain Free? Yes Wound debrided: R lat lower leg Type of Debridement: Excisional debridement Anesthesia Used: 5% Lidocaine Gel Depth: Down to and including healthy tissue, in the subcutaneous layer Percentage of wound debrided: 100 Instrument Used: 5mm curette Tissue Removed: fibrin and devitalized tissue Severity: Limited To Skin Breakdown Amount of bleeding with debridement: Mild Bleeding Controlled with: Compression and gauze Patient tolerated procedure well Assessment/Plan Active Problems Diabetes type 2, controlled (Chronic) long-term (current) use of anticoagulants (Chronic) Traumatic skin ulcer with fat layer exposed (Acute) Edema of lower extremity (Acute) Cellulitis of lower extremity (Acute) Nonhealing nonsurgical wound with fat layer exposed (Acute) Assessment: Nonhealing nonsurgical ulcer right lower leg. Cellulitis. Edema lower extremity. Neuropathic pain to lower extremity Plan: Wash leg with Dial soap. Apply Promogran moistened with Adaptic over top gauze and tape. Double layer Tubigrip. Appointment with Dr. Hinkle on October 12. Follow up in 1 week
== END 2018-10-04 23:59 ==
LOC: WC 08:00
PROVIDERS: Family Provider Family Medicine; PCP Family Medicine; Referring Provider Nurse Practitioner; Visit Provider Nurse Practitioner
DX: S81.811A Laceration without foreign body, right lower leg, initial encounter (principal); W22.8XXA Striking against or struck by other objects, initial encounter; R60.0 Localized edema; I82.401 Acute embolism and thrombosis of unspecified deep veins of right lower extremity; L03.115 Cellulitis of right lower limb; Z79.01 Long term (current) use of anticoagulants; E11.9 Type 2 diabetes mellitus without complications
CPT/HCPCS: 11042; 93971

== ENCOUNTER 2018-10-21 08:15 | Outpatient (RCR) | payer MEDICARE, OTHER, SELFPAY ==
[2018-10-05 01:37] VITALS: BP 159/96; PULSE 92; RESP 18; TEMP 36.6
[2018-10-07 08:04] VITALS: BP 147/88; PULSE 90; RESP 18; TEMP 36.6; BMI 43.0
--- NOTE | 2018-10-07 08:56 | PCM.WC.PN ---
(1) Cellulitis of lower extremity Status: Acute Current Visit: Yes Qualifiers: Code(s): L03.119 - Cellulitis of unspecified part of limb (2) Edema of lower extremity Status: Chronic Current Visit: Yes Code(s): R60.0 - Localized edema (3) Nonhealing nonsurgical wound with fat layer exposed Status: Acute Current Visit: Yes Code(s): T14.8XXA - Other injury of unspecified body region, initial encounter (4) Traumatic skin ulcer with fat layer exposed Status: Acute Current Visit: Yes Code(s): L98.492 - Non-pressure chronic ulcer of skin of other sites with fat layer exposed (5) Diabetes type 2, controlled Status: Chronic Current Visit: No Code(s): E11.9 - Type 2 diabetes mellitus without complications (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 Has been seeing his family doctor and just putting gauze dressings on. Patient referred himself for nonhealing History of Wound: 78-year-old white male on blood thinners for an unknown reason. Patient was cleaning out his car and was taking a plastic shovel out in a gouged his right lateral lower leg approximately 6 weeks ago has been seeing his family doctor without improvement. Referred himself here has just been using gauze dressings. Cellulitis is noted around very tender and burning pain complaints lower extremity edema also noted. Last ABIs were done in 2012 we will repeat and culture the old open wound. Progress of Wound: The cultures came back rare bacteria for both aerobic and anaerobic. The wound is smaller this week and still has cellulitis of the whole leg mostly from edema.STAT US R leg was neg. Patient notified to elevate leg more. Patient sleeps in the recliner not in a bed which adds to his difficulty in his legs. Today the ulcer looks clean looks good with new buds of new cells developing inside the wound on Promogran. Arterial brachial studies show good circulation but the venous has some blockages in the GS V and J VS. Patient has and appointment with Dr. Hinkle for evaluation for surgery October 12. - Physical Exam Vital Signs Temp Pulse Resp BP 98 F 90 18 147/88 H 10/07/18 08:04 10/07/18 08:04 10/07/18 08:04 10/07/18 08:04 General: Oriented x3, Cooperative, Well developed HEENT: Atraumatic, PERRLA Oral: Moist Mucosa Neck: Supple, No JVD Lungs: Clear to auscultation, Normal air movement Cardiovascular: Regular rate, Regular Rhythm Abdomen: Bowel Sounds Present, Soft, Non Tender, No Hepato-splenomegaly Extremities: No clubbing, No edema Skin: Ulcer/ Wound - R lat lower leg Wound Measurements and Assessment WC - Nurse 1 - General Ulcer Measurement Start: 10/07/18 08:04 Freq: Status: Active Protocol: Activity Type Activity Date Activity User E-Sign Co-Sign Detail Recorded Client Recorded Date Recorded By Document 10/07/18 08:04 DL [id number] 10/07/18 08:12 DL 10/07/18 08:04 Wound Center Nurse 1 [Ulcer Assessment] #2- RT LAT LE -Current Size (cm) - Length 1 -Current Size (cm) - Width 0.4 -Current Size (cm) - Depth 0.1 -Total Square Cm 0.4 -Photo Taken No -Exudate Amt None Present -Wound Margin Distinct, Outline Attached -Granulation Amt Large (67-100%) -Granulation Quality Red -Necrosis Amt Small (1-33%) -Necrotic Tissue Type Adherent Slough -Structure Exposed N/A -Texture (Yokasta-wound Skin Appearance) Localized Edema Scarring -Moisture (Y[place]asta-wound Skin Appearance No Abnormality ) -Color (Yokasta-wound Skin Appearance) Hemosiderin Staining -Temperature (Yokasta-wound Skin No Abnormality Appearance) (Pt Warm) -Tenderness on Palpation (Yokasta-wound No Skin Appearance) -Ulcer Cleansing Wound Cleanser -Foul Odor after Cleansing No -Anesthetic Used 4% Lidocaine Solution [Edema Assessment] -Right Calf (cm) 44.5 -Right Ankle (cm) 25.3 WC - Nurse 2 - General Ulcer CM Notes Start: 10/07/18 08:04 Freq: Status: Active Protocol: Activity Type Activity Date Activity User E-Sign Co-Sign Detail Recorded Client Recorded Date Recorded By Document 10/07/18 08:34 MW [id number] 10/07/18 08:35 MW 10/07/18 08:34 Wound Center Nurse 2 [Procedure/Treatment] #2- RT LAT LE -Time 08:34 -Correct Patient Yes -Correct Side, Site, Position Yes -Correct Procedure Yes -Procedure Performed Yes -Type of Procedure Debridement -Clinical Debridement Subcutaneous -Post Debridement Size (cm) - Length 1.7 -Post Debridement Size (cm) - Width 0.4 -Post Debridement Size (cm) - Depth 0.1 -Total Square Cm 0.68 -Wound/Ulcer Outcome Not Healed -Ulcer Cleansing Rinsed/ Irrigated with Saline -Foul Odor after Cleansing No -Bioengineered Tissue No -Bleeding Controlled with Pressure -Offloading No -Treatment Response Procedure Tolerated Well [See Physician Procedure note for Specifics] Pain Scale: 0-10 Numeric [Pain] -Is Patient Pain Free? Yes Musculoskeletal: No Tenderness to Palpation of Joints or Extremities Lymphatic: No Cervical, Supraclavicular, or Inguinal Adenopathy Neurological: Cranial nerves II-XII grossly intact, Neuro grossly intact Psych/Mental Status: Normal Affect, Appropriate Debridement Note Post-Debridement Measurements/Treatment WC - Nurse 2 - General Ulcer CM Notes Start: 10/07/18 08:04 Freq: Status: Active Protocol: Activity Type Activity Date Activity User E-Sign Co-Sign Detail Recorded Client Recorded Date Recorded By Document 10/07/18 08:34 MW [id number] 10/07/18 08:35 MW 10/07/18 08:34 Wound Center Nurse 2 #2- RT LAT LE -Time 08:34 -Correct Patient Yes -Correct Side, Site, Position Yes -Correct Procedure Yes -Procedure Performed Yes -Type of Procedure Debridement -Clinical Debridement Subcutaneous -Post Debridement Size (cm) - Length 1.7 -Post Debridement Size (cm) - Width 0.4 -Post Debridement Size (cm) - Depth 0.1 -Total Square Cm 0.68 -Wound/Ulcer Outcome Not Healed -Ulcer Cleansing Rinsed/ Irrigated with Saline -Foul Odor after Cleansing No -Bioengineered Tissue No -Bleeding Controlled with Pressure -Offloading No -Treatment Response Procedure Tolerated Well Pain Scale: 0-10 Numeric Is Patient Pain Free? Yes Wound debrided: R lat lower leg Type of Debridement: Excisional debridement Anesthesia Used: 5% Lidocaine Gel Depth: Down to and including healthy tissue Percentage of wound debrided: 100 Instrument Used: 5mm curette Tissue Removed: fibrin Severity: Limited To Skin Breakdown Amount of bleeding with debridement: Mild Bleeding Controlled with: Compression and gauze Patient tolerated procedure well Assessment/Plan Active Problems [facility] (current) use of anticoagulants (Chronic) Traumatic skin ulcer with fat layer exposed (Acute) Edema of lower extremity (Chronic) Cellulitis of lower extremity (Acute) Nonhealing nonsurgical wound with fat layer exposed (Acute) Assessment: Nonhealing nonsurgical ulcer right lower leg. Cellulitis. Edema lower extremity. Neuropathic pain to lower extremity Plan: Wash leg with Dial soap. Apply Promogran moistened with Adaptic over top gauze and tape. Double layer Tubigrip. Appointment with Dr. Hinkle on October 12. Follow up in 1 week
--- NOTE | 2018-10-07 08:59 | PN.PCM_ITS ---
(1) Cellulitis of lower extremity Status: Acute Current Visit: Yes Qualifiers: Code(s): L03.119 - Cellulitis of unspecified part of limb (2) Edema of lower extremity Status: Chronic Current Visit: Yes Code(s): R60.0 - Localized edema (3) Nonhealing nonsurgical wound with fat layer exposed Status: Acute Current Visit: Yes Code(s): T14.8XXA - Other injury of unspecified body region, initial encounter (4) Traumatic skin ulcer with fat layer exposed Status: Acute Current Visit: Yes Code(s): L98.492 - Non-pressure chronic ulcer of skin of other sites with fat layer exposed (5) Diabetes type 2, controlled Status: Chronic Current Visit: No Code(s): E11.9 - Type 2 diabetes mellitus without complications (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 Has been seeing his family doctor and just putting gauze dressings on. Patient referred himself for nonhealing History of Wound: 78-year-old white male on blood thinners for an unknown reason. Patient was cleaning out his car and was taking a plastic shovel out in a gouged his right lateral lower leg approximately 6 weeks ago has been seeing his family doctor without improvement. Referred himself here has just been using gauze dressings. Cellulitis is noted around very tender and burning pain complaints lower extremity edema also noted. Last ABIs were done in 2012 we will repeat and culture the old open wound. Progress of Wound: The cultures came back rare bacteria for both aerobic and anaerobic. The wound is smaller this week and still has cellulitis of the whole leg mostly from edema.STAT US R leg was neg. Patient notified to elevate leg more. Patient sleeps in the recliner not in a bed which adds to his difficulty in his legs. Today the ulcer looks clean looks good with new buds of new cells developing inside the wound on Promogran. Arterial brachial studies show good circulation but the venous has some blockages in the GS V and J VS. Patient has and appointment with Dr. Hinkle for evaluation for surgery October 12. - Physical Exam Vital Signs Temp Pulse Resp BP 98 F 90 18 147/88 H 10/07/18 08:04 10/07/18 08:04 10/07/18 08:04 10/07/18 08:04 General: Oriented x3, Cooperative, Well developed HEENT: Atraumatic, PERRLA Oral: Moist Mucosa Neck: Supple, No JVD Lungs: Clear to auscultation, Normal air movement Cardiovascular: Regular rate, Regular Rhythm Abdomen: Bowel Sounds Present, Soft, Non Tender, No Hepato-splenomegaly Extremities: No clubbing, No edema Skin: Ulcer/ Wound - R lat lower leg Wound Measurements and Assessment WC - Nurse 1 - General Ulcer Measurement Start: 10/07/18 08:04 Freq: Status: Active Protocol: Activity Type Activity Date Activity User E-Sign Co-Sign Detail Recorded Client Recorded Date Recorded By Document 10/07/18 08:04 DL [id number] 10/07/18 08:12 DL 10/07/18 08:04 Wound Center Nurse 1 [Ulcer Assessment] #2- RT LAT LE -Current Size (cm) - Length 1 -Current Size (cm) - Width 0.4 -Current Size (cm) - Depth 0.1 -Total Square Cm 0.4 -Photo Taken No -Exudate Amt None Present -Wound Margin Distinct, Outline Attached -Granulation Amt Large (67-100%) -Granulation Quality Red -Necrosis Amt Small (1-33%) -Necrotic Tissue Type Adherent Slough -Structure Exposed N/A -Texture ([place]-wound Skin Appearance) Localized Edema Scarring -Moisture ([place]-wound Skin Appearance No Abnormality ) -Color ([place]-wound Skin Appearance) Hemosiderin Staining -Temperature ([place]-wound Skin No Abnormality Appearance) (Pt Warm) -Tenderness on Palpation ([place]-wound No Skin Appearance) -Ulcer Cleansing Wound Cleanser -Foul Odor after Cleansing No -Anesthetic Used 4% Lidocaine Solution [Edema Assessment] -Right Calf (cm) 44.5 -Right Ankle (cm) 25.3 WC - Nurse 2 - General Ulcer CM Notes Start: 10/07/18 08:04 Freq: Status: Active Protocol: Activity Type Activity Date Activity User E-Sign Co-Sign Detail Recorded Client Recorded Date Recorded By Document 10/07/18 08:34 MW [id number] 10/07/18 08:35 MW 10/07/18 08:34 Wound Center Nurse 2 [Procedure/Treatment] #2- RT LAT LE -Time 08:34 -Correct Patient Yes -Correct Side, Site, Position Yes -Correct Procedure Yes -Procedure Performed Yes -Type of Procedure Debridement -Clinical Debridement Subcutaneous -Post Debridement Size (cm) - Length 1.7 -Post Debridement Size (cm) - Width 0.4 -Post Debridement Size (cm) - Depth 0.1 -Total Square Cm 0.68 -Wound/Ulcer Outcome Not Healed -Ulcer Cleansing Rinsed/ Irrigated with Saline -Foul Odor after Cleansing No -Bioengineered Tissue No -Bleeding Controlled with Pressure -Offloading No -Treatment Response Procedure Tolerated Well [See Physician Procedure note for Specifics] Pain Scale: 0-10 Numeric [Pain] -Is Patient Pain Free? Yes Musculoskeletal: No Tenderness to Palpation of Joints or Extremities Lymphatic: No Cervical, Supraclavicular, or Inguinal Adenopathy Neurological: Cranial nerves II-XII grossly intact, Neuro grossly intact Psych/Mental Status: Normal Affect, Appropriate Debridement Note Post-Debridement Measurements/Treatment WC - Nurse 2 - General Ulcer CM Notes Start: 10/07/18 08:04 Freq: Status: Active Protocol: Activity Type Activity Date Activity User E-Sign Co-Sign Detail Recorded Client Recorded Date Recorded By Document 10/07/18 08:34 MW [id number] 10/07/18 08:35 MW 10/07/18 08:34 Wound Center Nurse 2 #2- RT LAT LE -Time 08:34 -Correct Patient Yes -Correct Side, Site, Position Yes -Correct Procedure Yes -Procedure Performed Yes -Type of Procedure Debridement -Clinical Debridement Subcutaneous -Post Debridement Size (cm) - Length 1.7 -Post Debridement Size (cm) - Width 0.4 -Post Debridement Size (cm) - Depth 0.1 -Total Square Cm 0.68 -Wound/Ulcer Outcome Not Healed -Ulcer Cleansing Rinsed/ Irrigated with Saline -Foul Odor after Cleansing No -Bioengineered Tissue No -Bleeding Controlled with Pressure -Offloading No -Treatment Response Procedure Tolerated Well Pain Scale: 0-10 Numeric Is Patient Pain Free? Yes Wound debrided: R lat lower leg Type of Debridement: Excisional debridement Anesthesia Used: 5% Lidocaine Gel Depth: Down to and including healthy tissue Percentage of wound debrided: 100 Instrument Used: 5mm curette Tissue Removed: fibrin Severity: Limited To Skin Breakdown Amount of bleeding with debridement: Mild Bleeding Controlled with: Compression and gauze Patient tolerated procedure well Assessment/Plan Active Problems [facility] (current) use of anticoagulants (Chronic) Traumatic skin ulcer with fat layer exposed (Acute) Edema of lower extremity (Chronic) Cellulitis of lower extremity (Acute) Nonhealing nonsurgical wound with fat layer exposed (Acute) Assessment: Nonhealing nonsurgical ulcer right lower leg. Cellulitis. Edema lower extremity. Neuropathic pain to lower extremity Plan: Wash leg with Dial soap. Apply Promogran moistened with Adaptic over top gauze and tape. Double layer Tubigrip. Appointment with Dr. Hinkle on October 12. Follow up in 1 week
[2018-10-14 08:00] VITALS: BP 155/95; PULSE 98; RESP 18; TEMP 37; BMI 43.0
--- NOTE | 2018-10-14 08:50 | PCM.WC.PN ---
(1) Cellulitis of lower extremity Status: Acute Current Visit: Yes Qualifiers: Code(s): L03.119 - Cellulitis of unspecified part of limb (2) Edema of lower extremity Status: Chronic Current Visit: Yes Code(s): R60.0 - Localized edema (3) Nonhealing nonsurgical wound with fat layer exposed Status: Acute Current Visit: Yes Code(s): T14.8XXA - Other injury of unspecified body region, initial encounter (4) Traumatic skin ulcer with fat layer exposed Status: Acute Current Visit: Yes Code(s): L98.492 - Non-pressure chronic ulcer of skin of other sites with fat layer exposed (5) Diabetes type 2, controlled Status: Chronic Current Visit: No Code(s): E11.9 - Type 2 diabetes mellitus without complications (6) 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 Has been seeing his family doctor and just putting gauze dressings on. Patient referred himself for nonhealing History of Wound: 78-year-old white male on blood thinners for an unknown reason. Patient was cleaning out his car and was taking a plastic shovel out in a gouged his right lateral lower leg approximately 6 weeks ago has been seeing his family doctor without improvement. Referred himself here has just been using gauze dressings. Cellulitis is noted around very tender and burning pain complaints lower extremity edema also noted. Last ABIs were done in 2012 we will repeat and culture the old open wound. Progress of Wound: The cultures came back rare bacteria for both aerobic and anaerobic. The wound is closed just a slight sliver open. The cellulitis of the whole leg is much improved. Patient sleeps in the recliner not in a bed which adds to his difficulty in his legs. Today the ulcer looks clean no sign of infection . Arterial brachial studies show good circulation but the venous has some blockages in the GS V and J VS. Patient had an appointment with Dr. Hinkle for evaluation for surgery October 12. It did not go well we will probably have him transferred to Dr. eMderos vascular doctor here in [place]. - Physical Exam Vital Signs Temp Pulse Resp BP 98 F 90 18 147/88 H 10/07/18 08:04 10/07/18 08:04 10/07/18 08:04 10/07/18 08:04 General: Oriented x3, Cooperative, Well developed HEENT: Atraumatic, PERRLA Oral: Moist Mucosa Neck: Supple, No JVD Lungs: Clear to auscultation, Normal air movement Cardiovascular: Regular rate, Regular Rhythm Abdomen: Bowel Sounds Present, Soft, Non Tender, No Hepato-splenomegaly Extremities: No clubbing, Edema Skin: Ulcer/ Wound - Right lateral lower leg Wound Measurements and Assessment WC - Nurse 2 - General Ulcer CM Notes Start: 10/07/18 08:04 Freq: Status: Active Protocol: Activity Type Activity Date Activity User E-Sign Co-Sign Detail Recorded Client Recorded Date Recorded By Document 10/14/18 08:42 MW [id number] 10/14/18 08:45 MW 10/14/18 08:42 Wound Center Nurse 2 [Procedure/Treatment] #2- RT LAT LE -Time 08:42 -Correct Patient Yes -Correct Side, Site, Position Yes -Correct Procedure Yes -Procedure Performed Yes -Type of Procedure Debridement -Clinical Debridement Subcutaneous -Post Debridement Size (cm) - Length 1.0 -Post Debridement Size (cm) - Width 0.1 -Post Debridement Size (cm) - Depth 0.1 -Total Square Cm 0.10 -Wound/Ulcer Outcome Not Healed -Ulcer Cleansing Rinsed/ Irrigated with Saline -Foul Odor after Cleansing No -Bioengineered Tissue No -Bleeding Controlled with Pressure -Offloading No -Treatment Response Procedure Tolerated Well [See Physician Procedure note for Specifics] Pain Scale: 0-10 Numeric [Pain] -Is Patient Pain Free? Yes Musculoskeletal: No Tenderness to Palpation of Joints or Extremities Lymphatic: No Cervical, Supraclavicular, or Inguinal Adenopathy Neurological: Cranial nerves II-XII grossly intact, Neuro grossly intact Psych/Mental Status: Normal Affect, Appropriate Debridement Note Post-Debridement Measurements/Treatment WC - Nurse 2 - General Ulcer CM Notes Start: 10/07/18 08:04 Freq: Status: Active Protocol: Activity Type Activity Date Activity User E-Sign Co-Sign Detail Recorded Client Recorded Date Recorded By Document 10/07/18 08:34 MW [id number] 10/07/18 08:35 MW Document 10/14/18 08:42 MW [id number] 10/14/18 08:45 MW 10/07/18 10/14/18 08:34 08:42 Wound Center Nurse 2 #2- RT LAT LE -Time 08:34 08:42 -Correct Patient Yes Yes -Correct Side, Site, Position Yes Yes -Correct Procedure Yes Yes -Procedure Performed Yes Yes -Type of Procedure Debridement Debridement -Clinical Debridement Subcutaneous Subcutaneous -Post Debridement Size (cm) - Length 1.7 1.0 -Post Debridement Size (cm) - Width 0.4 0.1 -Post Debridement Size (cm) - Depth 0.1 0.1 -Total Square Cm 0.68 0.10 -Wound/Ulcer Outcome Not Healed Not Healed -Ulcer Cleansing Rinsed/ Rinsed/ Irrigated with Irrigated with Saline Saline -Foul Odor after Cleansing No No -Bioengineered Tissue No No -Bleeding Controlled with Pressure Pressure -Offloading No No -Treatment Response Procedure Procedure Tolerated Well Tolerated Well Pain Scale: 0-10 Numeric Is Patient Pain Free? Yes Yes Wound debrided: Right lateral lower leg Type of Debridement: Excisional debridement Anesthesia Used: 5% Lidocaine Gel Depth: to muscle Instrument Used: 3mm curette Tissue Removed: Devitalized tissue fibrin Amount of bleeding with debridement: Mild Bleeding Controlled with: Compression and gauze Patient did not tolerate procedure well Assessment/Plan Active Problems nursing home (current) use of anticoagulants (Chronic) Traumatic skin ulcer with fat layer exposed (Acute) Edema of lower extremity (Chronic) Cellulitis of lower extremity (Acute) Nonhealing nonsurgical wound with fat layer exposed (Acute) Assessment: Nonhealing nonsurgical ulcer right lower leg. Cellulitis. Edema lower extremity. Neuropathic pain to lower extremity Plan: Wash leg with Dial soap. Apply Promogran moistened with Adaptic over top gauze and tape. Double layer Tubigrip. Follow up in 1 week
--- NOTE | 2018-10-14 08:55 | PN.PCM_ITS ---
(1) Cellulitis of lower extremity Status: Acute Current Visit: Yes Qualifiers: Code(s): L03.119 - Cellulitis of unspecified part of limb (2) Edema of lower extremity Status: Chronic Current Visit: Yes Code(s): R60.0 - Localized edema (3) Nonhealing nonsurgical wound with fat layer exposed Status: Acute Current Visit: Yes Code(s): T14.8XXA - Other injury of unspecified body region, initial encounter (4) Traumatic skin ulcer with fat layer exposed Status: Acute Current Visit: Yes Code(s): L98.492 - Non-pressure chronic ulcer of skin of other sites with fat layer exposed (5) Diabetes type 2, controlled Status: Chronic Current Visit: No Code(s): E11.9 - Type 2 diabetes mellitus without complications (6) 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 Has been seeing his family doctor and just putting gauze dressings on. Patient referred himself for nonhealing History of Wound: 78-year-old white male on blood thinners for an unknown reason. Patient was cleaning out his car and was taking a plastic shovel out in a gouged his right lateral lower leg approximately 6 weeks ago has been seeing his family doctor without improvement. Referred himself here has just been using gauze dressings. Cellulitis is noted around very tender and burning pain complaints lower extremity edema also noted. Last ABIs were done in 2012 we will repeat and culture the old open wound. Progress of Wound: The cultures came back rare bacteria for both aerobic and anaerobic. The wound is closed just a slight sliver open. The cellulitis of the whole leg is much improved. Patient sleeps in the recliner not in a bed which adds to his difficulty in his legs. Today the ulcer looks clean no sign of infection . Arterial brachial studies show good circulation but the venous has some blockages in the GS V and J VS. Patient had an appointment with Dr. Hinkle for evaluation for surgery October 12. It did not go well we will probably have him transferred to Dr. Mederos vascular doctor here in [place]. - Physical Exam Vital Signs Temp Pulse Resp BP 98 F 90 18 147/88 H 10/07/18 08:04 10/07/18 08:04 10/07/18 08:04 10/07/18 08:04 General: Oriented x3, Cooperative, Well developed HEENT: Atraumatic, PERRLA Oral: Moist Mucosa Neck: Supple, No JVD Lungs: Clear to auscultation, Normal air movement Cardiovascular: Regular rate, Regular Rhythm Abdomen: Bowel Sounds Present, Soft, Non Tender, No Hepato-splenomegaly Extremities: No clubbing, Edema Skin: Ulcer/ Wound - Right lateral lower leg Wound Measurements and Assessment WC - Nurse 2 - General Ulcer CM Notes Start: 10/07/18 08:04 Freq: Status: Active Protocol: Activity Type Activity Date Activity User E-Sign Co-Sign Detail Recorded Client Recorded Date Recorded By Document 10/14/18 08:42 MW [id number] 10/14/18 08:45 MW 10/14/18 08:42 Wound Center Nurse 2 [Procedure/Treatment] #2- RT LAT LE -Time 08:42 -Correct Patient Yes -Correct Side, Site, Position Yes -Correct Procedure Yes -Procedure Performed Yes -Type of Procedure Debridement -Clinical Debridement Subcutaneous -Post Debridement Size (cm) - Length 1.0 -Post Debridement Size (cm) - Width 0.1 -Post Debridement Size (cm) - Depth 0.1 -Total Square Cm 0.10 -Wound/Ulcer Outcome Not Healed -Ulcer Cleansing Rinsed/ Irrigated with Saline -Foul Odor after Cleansing No -Bioengineered Tissue No -Bleeding Controlled with Pressure -Offloading No -Treatment Response Procedure Tolerated Well [See Physician Procedure note for Specifics] Pain Scale: 0-10 Numeric [Pain] -Is Patient Pain Free? Yes Musculoskeletal: No Tenderness to Palpation of Joints or Extremities Lymphatic: No Cervical, Supraclavicular, or Inguinal Adenopathy Neurological: Cranial nerves II-XII grossly intact, Neuro grossly intact Psych/Mental Status: Normal Affect, Appropriate Debridement Note Post-Debridement Measurements/Treatment WC - Nurse 2 - General Ulcer CM Notes Start: 10/07/18 08:04 Freq: Status: Active Protocol: Activity Type Activity Date Activity User E-Sign Co-Sign Detail Recorded Client Recorded Date Recorded By Document 10/07/18 08:34 MW [id number] 10/07/18 08:35 MW Document 10/14/18 08:42 MW [id number] 10/14/18 08:45 MW 10/07/18 10/14/18 08:34 08:42 Wound Center Nurse 2 #2- RT LAT LE -Time 08:34 08:42 -Correct Patient Yes Yes -Correct Side, Site, Position Yes Yes -Correct Procedure Yes Yes -Procedure Performed Yes Yes -Type of Procedure Debridement Debridement -Clinical Debridement Subcutaneous Subcutaneous -Post Debridement Size (cm) - Length 1.7 1.0 -Post Debridement Size (cm) - Width 0.4 0.1 -Post Debridement Size (cm) - Depth 0.1 0.1 -Total Square Cm 0.68 0.10 -Wound/Ulcer Outcome Not Healed Not Healed -Ulcer Cleansing Rinsed/ Rinsed/ Irrigated with Irrigated with Saline Saline -Foul Odor after Cleansing No No -Bioengineered Tissue No No -Bleeding Controlled with Pressure Pressure -Offloading No No -Treatment Response Procedure Procedure Tolerated Well Tolerated Well Pain Scale: 0-10 Numeric Is Patient Pain Free? Yes Yes Wound debrided: Right lateral lower leg Type of Debridement: Excisional debridement Anesthesia Used: 5% Lidocaine Gel Depth: to muscle Instrument Used: 3mm curette Tissue Removed: Devitalized tissue fibrin Amount of bleeding with debridement: Mild Bleeding Controlled with: Compression and gauze Patient did not tolerate procedure well Assessment/Plan Active Problems senior care (current) use of anticoagulants (Chronic) Traumatic skin ulcer with fat layer exposed (Acute) Edema of lower extremity (Chronic) Cellulitis of lower extremity (Acute) Nonhealing nonsurgical wound with fat layer exposed (Acute) Assessment: Nonhealing nonsurgical ulcer right lower leg. Cellulitis. Edema lower extremity. Neuropathic pain to lower extremity Plan: Wash leg with Dial soap. Apply Promogran moistened with Adaptic over top gauze and tape. Double layer Tubigrip. Follow up in 1 week
[2018-10-21 08:24] VITALS: BP 136/74; PULSE 100; RESP 20; TEMP 35.6; BMI 43.0
--- NOTE | 2018-10-21 08:53 | PN.PCM_ITS ---
(1) Cellulitis of lower extremity Status: Acute Current Visit: Yes Qualifiers: Code(s): L03.119 - Cellulitis of unspecified part of limb (2) Edema of lower extremity Status: Chronic Current Visit: Yes Code(s): R60.0 - Localized edema (3) Nonhealing nonsurgical wound with fat layer exposed Status: Acute Current Visit: Yes Code(s): T14.8XXA - Other injury of unspecified body region, initial encounter (4) Traumatic skin ulcer with fat layer exposed Status: Acute Current Visit: Yes Code(s): L98.492 - Non-pressure chronic ulcer of skin of other sites with fat layer exposed (5) Diabetes type 2, controlled Status: Chronic Current Visit: Yes Code(s): E11.9 - Type 2 diabetes mellitus without complications (6) half-way (current) use of anticoagulants Status: Chronic Current Visit: Yes Code(s): 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 Has been seeing his family doctor and just putting gauze dressings on. Patient referred himself for nonhealing History of Wound: 78-year-old white male on blood thinners for an unknown reason. Patient was cleaning out his car and was taking a plastic shovel out in a gouged his right lateral lower leg approximately 6 weeks ago has been seeing his family doctor without improvement. Referred himself here has just been using gauze dressings. Cellulitis is noted around very tender and burning pain complaints lower extremity edema also noted. Last ABIs were done in 2012 we will repeat and culture the old open wound. Progress of Wound: The wound is healed in the right lateral lower leg patient will be discharged from the wound center - Physical Exam Vital Signs Temp Pulse Resp BP 96.0 F L 100 20 H 136/74 H 10/21/18 08:24 10/21/18 08:24 10/21/18 08:24 10/21/18 08:24 General: Oriented x3, Cooperative, Well developed HEENT: Atraumatic, PERRLA Oral: Moist Mucosa Neck: Supple, No JVD Lungs: Clear to auscultation, Normal air movement Cardiovascular: Regular rate, Regular Rhythm Abdomen: Bowel Sounds Present, Soft, Non Tender, No Hepato-splenomegaly Extremities: No clubbing, No edema, - - Right lateral lower leg wound traumatic Wound Measurements and Assessment WC - Nurse 1 - General Ulcer Measurement Start: 10/07/18 08:04 Freq: Status: Active Protocol: Activity Type Activity Date Activity User E-Sign Co-Sign Detail Recorded Client Recorded Date Recorded By Document 10/21/18 08:24 DV [id number] 10/21/18 08:27 DV 10/21/18 08:24 Wound Center Nurse 1 [Ulcer Assessment] #2- RT LAT LE -Combined with other wound No -Current Size (cm) - Length 0.4 -Current Size (cm) - Width 0.2 -Current Size (cm) - Depth 0.1 -Total Square Cm 0.08 -Photo Taken No -Epithelialization Small 1-33% -Tunneling No -Undermining/Tunneling No -Circular Undermining No -Classification - Thickness Full Thickness without Exposed Support Structure -Wound Margin Flat & Intact -Granulation Amt None Present (0 %) -Granulation Quality N/A -Slough/Fibrin Yes -Necrosis Amt Small (1-33%) -Necrotic Tissue Type Adherent Slough -Structure Exposed None/Limited to Skin Breakdown -Texture ([place]-wound Skin Appearance) No Abnormality Assessed -Moisture ([place]-wound Skin Appearance No Abnormality ) Assessed -Color ([place]-wound Skin Appearance) No Abnormality Assessed -Temperature ([place]-wound Skin No Abnormality Appearance) (Pt Warm) -Tenderness on Palpation ([place]-wound No Skin Appearance) -Ulcer Cleansing Rinsed/ Irrigated with Saline -Foul Odor after Cleansing No -Anesthetic Used 4% Lidocaine Solution [Edema Assessment] -Lower Limb Edema Present Yes -Right Calf (cm) 46.0 -Right Ankle (cm) 25 -Left Calf (cm) 46.5 -Left Ankle (cm) 25.4 WC - Nurse 2 - General Ulcer CM Notes Start: 10/07/18 08:04 Freq: Status: Active Protocol: Activity Type Activity Date Activity User E-Sign Co-Sign Detail Recorded Client Recorded Date Recorded By Document 10/21/18 08:45 MW [id number] 10/21/18 08:47 MW 10/21/18 08:45 Wound Center Nurse 2 [Procedure/Treatment] #2- RT LAT LE -Time 08:46 -Correct Patient Yes -Correct Side, Site, Position Yes -Correct Procedure Yes -Procedure Performed No -Post Debridement Size (cm) - Length 0 -Post Debridement Size (cm) - Width 0 -Post Debridement Size (cm) - Depth 0 -Total Square Cm 0 -Wound/Ulcer Outcome Healed- Epithelialized [See Physician Procedure note for Specifics] Pain Scale: 0-10 Numeric [Pain] -Is Patient Pain Free? Yes Musculoskeletal: No Tenderness to Palpation of Joints or Extremities Lymphatic: No Cervical, Supraclavicular, or Inguinal Adenopathy Neurological: Cranial nerves II-XII grossly intact, Neuro grossly intact Psych/Mental Status: Normal Affect, Appropriate Debridement Note Post-Debridement Measurements/Treatment WC - Nurse 2 - General Ulcer CM Notes Start: 10/07/18 08:04 Freq: Status: Active Protocol: Activity Type Activity Date Activity User E-Sign Co-Sign Detail Recorded Client Recorded Date Recorded By Document 10/07/18 08:34 MW [id number] 10/07/18 08:35 MW Document 10/14/18 08:42 MW [id number] 10/14/18 08:45 MW Document 10/21/18 08:45 MW [id number] 10/21/18 08:47 MW 10/07/18 10/14/18 10/21/18 08:34 08:42 08:45 Wound Center Nurse 2 #2- RT LAT LE -Time 08:34 08:42 08:46 -Correct Patient Yes Yes Yes -Correct Side, Site, Position Yes Yes Yes -Correct Procedure Yes Yes Yes -Procedure Performed Yes Yes No -Type of Procedure Debridement Debridement -Clinical Debridement Subcutaneous Subcutaneous -Post Debridement Size (cm) - Length 1.7 1.0 0 -Post Debridement Size (cm) - Width 0.4 0.1 0 -Post Debridement Size (cm) - Depth 0.1 0.1 0 -Total Square Cm 0.68 0.10 0 -Wound/Ulcer Outcome Not Healed Not Healed Healed- Epithelialized -Ulcer Cleansing Rinsed/ Rinsed/ Irrigated with Irrigated with Saline Saline -Foul Odor after Cleansing No No -Bioengineered Tissue No No -Bleeding Controlled with Pressure Pressure -Offloading No No -Treatment Response Procedure Procedure Tolerated Well Tolerated Well Pain Scale: 0-10 Numeric Is Patient Pain Free? Yes Yes Yes No debridement was completed today Assessment/Plan Active Problems Diabetes type 2, controlled (Chronic) half-way (current) use of anticoagulants (Chronic) Traumatic skin ulcer with fat layer exposed (Acute) Edema of lower extremity (Chronic) Cellulitis of lower extremity (Acute) Nonhealing nonsurgical wound with fat layer exposed (Acute) Assessment: Nonhealing nonsurgical ulcer right lower leg resolved. Cellulitis resolved. Edema lower extremity. Neuropathic pain to lower extremity Plan: Follow-up as needed discharge from the wound center
== END 2018-11-04 23:59 ==
LOC: WC 08:15
PROVIDERS: Family Provider Family Medicine; PCP Family Medicine; Referring Provider Nurse Practitioner; Visit Provider Nurse Practitioner
DX: S81.811A Laceration without foreign body, right lower leg, initial encounter (principal); W22.8XXA Striking against or struck by other objects, initial encounter; R60.0 Localized edema; E11.9 Type 2 diabetes mellitus without complications; Z79.01 Long term (current) use of anticoagulants; L03.115 Cellulitis of right lower limb
CPT/HCPCS: 11042; 99212; G0463

== ENCOUNTER 2019-02-10 10:34 | Inpatient (IN) | payer MEDICARE, OTHER, SELFPAY ==
[2018-10-27 08:31] VITALS: BMI 43.0
[2019-02-10] VITALS (15 sets, daily range): BP systolic 154–199; BP diastolic 60–101; PULSE 78–109; RESP 16–28; TEMP 36.7–37.1; O2SAT 93–96; BMI 43.2; BMI 41.6
--- NOTE | 2019-02-10 11:01 | EKG12_ITS ---
Test Reason : SOB Blood Pressure : / mmHG Vent. Rate : 072 BPM Atrial Rate : 091 BPM P-R Int : 000 ms QRS Dur : 096 ms QT Int : 398 ms P-R-T Axes : 000 060 -19 degrees QTc Int : 435 ms Atrial fibrillation with premature ventricular or aberrantly conducted complexes and with ventricular escape complexes Nonspecific ST and T wave abnormality Abnormal ECG Confirmed by CARLOS GARCIA ([id number]), writer editor HERMAN REYNOLDS ([id number]) on 02/13/2019 2:27:58 PM Referred By: Mehran Lindsay Confirmed By:CARLOS GARCIA
--- NOTE | 2019-02-10 11:01 | RAD_ITS ---
STUDY: X-RAY CHEST REASON FOR EXAM: Male, 78 years old. Shortness of breath. TECHNIQUE: Single AP portable view of the chest. COMPARISON: None. FINDINGS: EKG electrodes are seen. Mild degree of vascular congestion and mild increased markings at the lung bases suggestive of bibasilar atelectasis. There is no demonstrated pleural abnormality. Normal size heart. Normal mediastinum and rhona. Normal visualized pulmonary arteries. There is atherosclerotic calcification of the aortic arch with tortuosity. There are diffuse degenerative changes of the visualized thoracic spine. There is degenerative osteoarthritis of the bilateral shoulders. There is no demonstrated abnormality of the visualized soft tissue structures of the upper abdomen. RAD/Chest 1 View (Portable) IMPRESSION: Mild degree of vascular congestion with bibasilar atelectasis. Electronically Signed: Kiel Romero, at 12:20 EDT , Service support ,
[2019-02-10 11:48] LABS: Absolute Lymphocyte Count 0.98 X10^3/uL (0.83-4.51); Absolute Neutrophil Count 7.4 X10^3/uL (2.0-7.7); Basophil# 0.05 X10^3/uL; Basophil% 0.5 % (0-1); Eosinophils% 3.2 % (0-5); Hematocrit 42.9 % (40-54); Hemoglobin 13.9 g/dL (13.0-16.5); Lymphocyte # 0.98 X10^3/ul (4.0); Lymphocyte % 10.5 % (19-41); Mean Corp Hgb Conc 32.4 g/dL (32-36); Mean Corpuscular Hgb 31.4 pg (27.0-32.0); Mean Corpuscular Volume 97.1 fL (80-94); Mean Platelet Vol. 9.7 fl (6.2-12.0); Monocyte# 0.58 X10^3/uL; Monocyte% 6.2 % (0-10); NRBC Flagged by Analyzer 0 % (0-5); Neutrophil # 7.42 X10^3/uL (2.7-7.7); Neutrophil % 79.3 % (47-70); Platelet Count 159 K/mm3 (150-450); RBC Distribution Width CV 14.2 % (11.6-14.6); RBC Distribution Width SD 51.4 fl (35.1-43.9); Red Blood Count 4.42 M/mm3 (4.6-6.2); White Blood Count 9.4 K/mm3 (4.4-11.0)
[2019-02-10] MEDS: Albuterol 2.5 MG/3 ML VIAL.NEB. INHALATION (11:56)
[2019-02-10] MEDS: Ipratropium/Albuterol Sulfate 3 ML AMPUL.NEB INHALATION (11:56)
[2019-02-10 12:03] LABS: Anion Gap 6 (5-15); BUN 20 mg/dL (7-18); BUN/Creat Ratio 16.5 RATIO (10-20); Chloride 102 mmol/L (98-107); Creatinine, Serum 1.21 mg/dL (0.70-1.30); EST Glomerular Filtration Rate 62 mL/min (>60); Est Glom Filt Rate - Afr Amer 75 mL/min (>60); Estimated Creatinine Clearance 47.04 ml/min; Glucose 178 mg/dL (74-106); Potassium 4.3 mmol/L (3.5-5.1); Sodium Level 135 mmol/L (136-145)
[2019-02-10] MEDS: MethylPREDNISolone 125 MG/2 ML Vial IV (12:18)
[2019-02-10 12:36] LABS: International Normalized Ratio 1.4; Prothrombin Time (Protime)PT. 17.2 SECONDS (11.7-14.9)
--- NOTE | 2019-02-10 12:40 | ED.VIS.GEN ---
History of Present Illness Chief Complaint: Shortness of Breath Informant: Patient Onset: Days Narrative: Patient presents to the ED with shortness of breath for the last 3 days. He also states he has been having a cough for the last 3 weeks. This started as more nasal congestion and feeling as though his chest is congested. He has not contacted his PCP regarding these URI symptoms. He has not really been taking anything for his symptoms. He denies any fever, chills, chest pain. He has no history of COPD or asthma. He does take Coumadin but is unsure why. He is unsure when his last INR check was. He has no diagnosis of CHF, however states that his lower extremities have been swollen for quite some time. Past Medical History - Allergies and Home Meds Allergies/Adverse Reactions: Allergies naproxen [From Naprosyn] Allergy (Unknown, Verified 02/10/19 10:45) Unknown acetaminophen [From Vicodin] Allergy (Verified 02/10/19 10:45) Unknown codeine Allergy (Verified 02/10/19 10:45) Unknown gabapentin Allergy (Verified 02/10/19 10:51) Hives hydrocodone [From Vicodin] Allergy (Verified 02/10/19 10:45) Unknown levofloxacin [From Levaquin] Allergy (Verified 02/10/19 10:45) Unknown lisinopril Allergy (Verified 02/10/19 10:51) Hives sertraline [From Zoloft] Allergy (Verified 02/10/19 10:45) Unknown simvastatin [From Zocor] Allergy (Verified 02/10/19 10:52) Hives sulfamethoxazole Allergy (Verified 02/10/19 10:45) Unknown Primary Care Physician: Chiki Brooks MD [Primary Care Provider] - Smoking Status: Never smoker Review of Systems General: Denies: Chills, Fever, Sweats Eyes: Denies: Visual changes - bilaterally, Diplopia ENT: Reports: - - Nasal congestion. Denies: Rhinorrhea, Sore throat Cardiovascular: Denies: Chest pain, Palpitations Respiratory: Reports: Dyspnea, Cough. Denies: Dyspnea on exertion Gastrointestinal: Denies: Abdominal pain, Nausea, Vomiting, Diarrhea, Melena, Hematochezia Genitourinary: Denies: Dysuria, Hematuria, Frequency Musculoskeletal: Reports: Swelling - Bilateral lower extremities. Denies: Back pain, Extremity Pain Skin: Denies: Rash, Wounds Neurological: Denies: Headache, Weakness, Numbness Physical Exam Vital Signs/Narrative: Vital Signs Temp Pulse Resp BP Pulse Ox 02/10/19 12:30 98.4 F 78 16 161/87 H 96 02/10/19 11:57 86 28 H 02/10/19 11:03 23 H 93 02/10/19 10:45 81 22 H 187/101 H 94 02/10/19 10:40 98.2 F 88 25 H 199/85 H 93 02/10/19 10:35 98.2 F 85 25 H 199/85 H 94 General: Well nourished, Well developed, No Acute Distress Head: Normocephalic, Atraumatic Eyes: Perrl, EOMI ENT: Moist mucous membranes, No rhinorrhea Neck: Supple, Nontender Cardiovascular: No murmurs, Irregular Respiratory: No distress, Chest nontender, Wheezing Abdomen: Soft, Nontender, Nondistended, Normal bowel sounds Back: Nontender, Normal Inspection Extremities: Nontender, No edema, Edema - 1+ pitting of bilateral lower extremities Skin: Normal color, No rash Neurological: Alert, Oriented x3, Cranial nerves II-XII grossly intact, Normal Strength, Normal Sensation Psychological: Normal affect, Normal Mood Diagnostic/Tx/Re-eval Chest X-Ray - ED: 1 View Pulmonary vascular congestion with bibasilar atelectasis - EKG Initial EKG Interpretation: Atrial Fibrillation - With PVCs ventricular rate 72 bpm. QRS 96. QT 398. No STEMI. - Medical Decision Making Patient presents to the ED with shortness of breath for 3 days. He has had URI symptoms over the past 3 weeks. He has diffuse wheezing on auscultation. He is hypoxic upon arrival. He was given aerosolized treatments and IV Solu-Medrol for symptomatic relief. EKG indicates rate controlled atrial fibrillation with PVCs. Prior EKG does not show atrial fibrillation. Patient does take Coumadin for unknown reason. Today his INR is subtherapeutic. CBC, BMP, troponin unremarkable. BNP is mildly elevated in the 900s. Chest x-ray indicates pulmonary vascular congestion with no evidence of infiltrate. Patient was ambulated and became hypoxic at 86%. Patient does require admission for his hypoxia. I discussed patient's case with Dr. Lindsay, who is accepting of the patient to his service. Patient will be admitted to the PCU. Patient agreeable to plan Impression: Bronchitis with hypoxia. Subtherapeutic INR. Disposition: Admitted to PCU ED Disposition - Plan for ED Patient: Referrals: Chiki Brooks MD [Primary Care Provider] -
[2019-02-10 13:46] LABS: BNP,B-Type NATRIURETIC PEPTIDE 989.8 pg/mL (0-100)
--- NOTE | 2019-02-10 14:01 | NURSING ---
DR JUAN JOSE GRANDE
--- NOTE | 2019-02-10 14:15 | NURSING ---
105 HYPOXIA, BRONCHITIS JUAN JOSE
--- NOTE | 2019-02-10 14:25 | ECHOCS_ITS ---
Reason For Study: Dyspnea/SOB Procedure This was a 2D Doppler, Color Flow transthoracic echocardiogram. The study was technically difficult. Contrast injection was performed. Exam performed portable in patient room. Left Ventricle Moderate concentric left ventricular hypertrophy. The estimated ejection fraction is 55 %. Unable to assess diastolic dysfunction due to arrhythmia. No regional wall motion abnormalities noted. There is mild global hypokinesis of the left ventricle. Right Ventricle Normal size and thickness. Normal systolic function. Atria The left atrium is severely enlarged. The right atrium is severely enlarged. Normal atrial septum. Mitral Valve Mild diffuse mitral valve thickening. 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 Tricuspid Valve Normal tricuspid valve. Unable to estimate RV systolic pressure due to insufficient tricuspid regurgitant envelope. Aortic Valve Trisinus/trileaflet aortic valve. Mild diffuse aortic valve thickening. There is no aortic stenosis. Pulmonic Valve The pulmonic valve is not well visualized. Great Vessels Normal aortic root. Normal arch. The inferior vena cava is dilated. No collapse of the inferior vena cava. Pericardium/Pleural Small pericardial effusion. There are no echocardiographic indications of cardiac tamponade. Medication Diluted definity 3ml given slow IV push to enhance endocardial definition. MMode/2D Measurements & Calculations LVIDd: 5.7 cm IVSd: 1.6 cm LAV(MOD-bp): 126.1 ml LVIDs: 3.7 cm LVPWd: 1.6 cm FS: 35.3 % LAV(MOD-bp) Indexed: 54.6 ml/m2 LAV(MOD-sp2): 116.6 ml LAV(MOD-sp4): 127.5 ml LA A4 area: 33.9 cm2 RA A4 area: 25.8 cm2 Doppler Measurements & Calculations MV E max danette: 129.7 cm/sec Ao V2 max: 152.5 cm/sec LV V1 max: 113.9 cm/sec MV A max danette: 53.3 cm/sec Ao max P.3 mmHg LV V1 max P.2 mmHg MV E/A: 2.4 Ao V2 mean: 103.6 cm/sec LV V1 mean P.6 mmHg Ao mean P.9 mmHg LV V1 mean: 74.3 cm/sec Ao V2 VTI: 24.9 cm LV V1 VTI: 19.3 cm PA V2 max: 83.5 cm/sec Interpretation Summary Moderate concentric left ventricular hypertrophy. The estimated ejection fraction is 55 %. Unable to assess diastolic dysfunction due to arrhythmia. There is mild global hypokinesis of the left ventricle. The left atrium is severely enlarged. The right atrium is severely enlarged. Unable to estimate RV systolic pressure due to insufficient tricuspid regurgitant envelope. The inferior vena cava is dilated No collapse of the inferior vena cava. Small pericardial effusion. There are no echocardiographic indications of cardiac tamponade. Compared to echo report dated 06/30/2017, LV function is slightly reduced, unable to quantitate RVSP. The study was technically difficult. Contrast injection was performed. Ordering Physician: Perico Mello Referring Physician: Mehran Lindsay Performed By: Aric Nolan RCS
--- NOTE | 2019-02-10 14:26 | HP.PCM_ITS ---
Problem List (1) (HFpEF) heart failure with preserved ejection fraction Status: Acute Qualifiers: Heart failure chronicity: acute Qualified Code(s): I50.31 - Acute diastolic (congestive) heart failure (2) Afib Status: Chronic Qualifiers: Atrial fibrillation type: unspecified Qualified Code(s): I48.91 - Unspecified atrial fibrillation History of Present Illness Date of Admission: 02/10/19 Chief Complaint: shortness of breath. The patient is a 78 year old M presents with shortness of breath. Patient has had shortness of breath chronically over months but has gotten worse. Patient has been coughing this been productive of some yellow phlegm. Presented to the emergency room and was noted to be hypoxic around 85%. Chest x-ray was consistent with point vascular congestion and patient had a BNP level of around 1000. Patient did receive methylprednisolone IV in the emergency room. Patient has chronic lower extremity edema and states that that has not changed in any quality and denies any weight change. Patient denies any history of heart failure. Patient was also noted to be in atrial fibrillation but he denies any history of atrial fibrillation though he has had it listed on his listed on summary of visits previously. Patient states that he has been told that he is on Coumadin because his blood is too thick. 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) Edema of lower extremity (Chronic) Peripheral vascular disease of lower extremity with ulceration (Chronic) Medical History: Medical History (Last Updated 02/10/19 @ 14:28 by Mehran Lindsay DO) Decubitus ulcer of right buttock, stage 2 (Acute) L89.312 Diabetes type 2, controlled (Chronic) E11.9 Chronic pain disorder (Chronic) G89.4 Osteoarthritis (Chronic) M19.90 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) Z79.01 Traumatic skin ulcer with fat layer exposed (Acute) L98.492 Edema of lower extremity (Chronic) R60.0 Cellulitis of lower extremity (Acute) L03.119 Nonhealing nonsurgical wound with fat layer exposed (Acute) T14.8XXA Peripheral vascular disease of lower extremity with ulceration (Chronic) I73.9, L97.909 Afib I48.91 Allergies naproxen [From Naprosyn] Allergy (Unknown, Verified 02/10/19 10:45) Unknown acetaminophen [From Vicodin] Allergy (Verified 02/10/19 10:45) Unknown codeine Allergy (Verified 02/10/19 10:45) Unknown gabapentin Allergy (Verified 02/10/19 10:51) Hives hydrocodone [From Vicodin] Allergy (Verified 02/10/19 10:45) Unknown levofloxacin [From Levaquin] Allergy (Verified 02/10/19 10:45) Unknown lisinopril Allergy (Verified 02/10/19 10:51) Hives sertraline [From Zoloft] Allergy (Verified 02/10/19 10:45) Unknown simvastatin [From Zocor] Allergy (Verified 02/10/19 10:52) Hives sulfamethoxazole Allergy (Verified 02/10/19 10:45) Unknown Home Medications: Ambulatory Orders Medication Instructions Recorded Meloxicam 15 mg PO DAILY 05/20/18 Metoprolol Tartrate [Lopressor 50 mg PO BID 05/20/18 (Beta Gilbert)] Pravastatin [Pravachol] 80 mg PO QHS 05/20/18 metFORMIN HCl [Glucophage] 500 mg PO BIDCM 05/20/18 Multivitamin [Multiple Vitamins] 1 ea PO DAILY 08/19/18 Warfarin Sodium [Coumadin] 1 mg PO DAILY 02/10/19 Warfarin Sodium [Coumadin] 5 mg PO DAILY 02/10/19 Surgical History: Surgical History (Last Reviewed 02/10/19 @ 14:28 by Mehran Lindsay DO) 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 Denies: Chills, Fever, Night Sweats Eyes: Denies: Blurred vision, Double vision HEENT: Reports: Nasal Congestion. Denies: Head Aches, Sinus Congestion, Sinus Drainage Cardiovascular: Reports: Edema. Denies: Chest Pain, Palpitations Respiratory: Reports: Cough, Shortness of Breath, Sputum production Gastrointestinal: Reports: Constipation. Denies: Abdominal Pain, Nausea, Vomiting Genitourinary: Denies: Dysuria Musculoskeletal: Denies: Joint Pain, Joint Tenderness Skin: Denies: Rash, Wounds Neurological: Denies: Numbness, Tingling, Focal weakness Psychiatric: Denies: Anxiety, Depression Hematologic/ Lymphatic: Denies: Easy Bruising, Easy Bleeding, Hx of blood clot Comment: A 10 point review of systems were negative except as mentioned in the history of present illness and the other review of systems. VTE Information - Inpt Only VTE Present on Admission: No VTE Mechan Device Prophylaxis: None VTE Pharm Prophylaxis ordered?: Yes Patient Problems: Active and Suspected Problems (Last Reviewed 10/27/18 @ 08:28 by Anita Downs) (HFpEF) heart failure with preserved ejection fraction (Acute) - Physical Exam General: Alert, Cooperative, No apparent distress, - - On oxygen. No respiratory distress. No conversational dyspnea. HEENT: Atraumatic, Normocephalic, - - No icterus Oral: Moist Mucosa, No Gingival or Mucosal Lesions/ Ulcerations Neck: No Nodes, Trachea Midline, - - Thick neck and unable to appreciate any JVD Lungs: Diminished, - - Coarse breath sounds bilaterally Cardiovascular: Irregular Rate, - - 2 out of 6 systolic ejection murmur at the right upper sternal border Abdomen: Bowel Sounds Present, Soft, Non Tender, Non-Distended, No Hepato- splenomegaly, Obese Extremities: No Calf Tenderness, Edema - Taut in the lower extremities Skin: No breakdown, - - Venous stasis dermatitis bilateral lower extremities Musculoskeletal: No Tenderness to Palpation of Joints or Extremities, No Muscle Wasting Neurological: Muscle tone normal, - - No clonus Psych/Mental Status: Normal Affect, Appropriate Vital Signs Temp Pulse Resp BP Pulse Ox 36.9 C 87 16 154/76 H 94 02/10/19 12:30 02/10/19 12:30 02/10/19 12:30 02/10/19 13:20 02/10/19 13:20 Oxygen Flow Rate (L/min) 2.5 Oxygen Delivery Method Room Air Weight: 125.3 kg Body Mass Index (BMI) 43.2 Laboratory Tests Past 24 Hrs 02/10/19 02/10/19 02/10/19 10:45 10:45 10:45 WBC 9.4 RBC 4.42 L Hgb 13.9 Hct 42.9 MCV 97.1 H MCH 31.4 MCHC 32.4 RDW Std Deviation 51.4 H RDW Coeff of Porter 14.2 Plt Count 159 MPV 9.7 Immature Gran % (Auto) 0.300 Neut % (Auto) 79.3 H Lymph % (Auto) 10.5 L [place] % (Auto) 6.2 Eos % (Auto) 3.2 Baso % (Auto) 0.5 Absolute Neuts (auto) 7.4 Absolute Lymphs (auto) 0.98 Nucleated RBC % 0 PT 17.2 H INR 1.4 Sodium 135 L Potassium 4.3 Chloride 102 Carbon Dioxide 27.0 Anion Gap 6 BUN 20 H Creatinine 1.21 Estim Creat Clear Calc 47.04 Est GFR (MDRD) Af Amer 75 Est GFR (MDRD) Non-Af 62 BUN/Creatinine Ratio 16.5 Glucose 178 H Calcium 9.0 Troponin I < 0.015 B-Natriuretic Peptide 02/10/19 10:45 WBC RBC Hgb Hct MCV MCH MCHC RDW Std Deviation RDW Coeff of Porter Plt Count MPV Immature Gran % (Auto) Neut % (Auto) Lymph % (Auto) [place] % (Auto) Eos % (Auto) Baso % (Auto) Absolute Neuts (auto) Absolute Lymphs (auto) Nucleated RBC % PT INR Sodium Potassium Chloride Carbon Dioxide Anion Gap BUN Creatinine Estim Creat Clear Calc Est GFR (MDRD) Af Amer Est GFR (MDRD) Non-Af BUN/Creatinine Ratio Glucose Calcium Troponin I B-Natriuretic Peptide 989.8 H Assessment/Plan All Active Problems (Last Reviewed 10/27/18 @ 08:28 by Anita Downs) (HFpEF) heart failure with preserved ejection fraction (Acute) Decubitus ulcer of right buttock, stage 2 (Acute) Traumatic skin ulcer with fat layer exposed (Acute) Cellulitis of lower extremity (Acute) Nonhealing nonsurgical wound with fat layer exposed (Acute) 1. Acute heart failure with preserved ejection fraction * EF of 65% from echocardiogram on June 30, 2017 * This is been probably more of a smoldering issue for the patient as he has had chronic lower extremity edema and may have been potentially tipped over the edge in regards to his shortness of breath due to what seems like an upper respiratory infection * Plan is to diurese with IV Lasix * No ISMAEL inhibitor given known allergy to lisinopril but will start patient on losartan * Check an echocardiogram * Will consult cardiology and discussed with Dr. Mello and he or 1 of his partners will see the patient 2. Atrial fibrillation * Rate controlled * I doubt this is new onset and I suspect that this is the reason why he is on warfarin * Continue with metoprolol * Continue with warfarin 3. Diabetes mellitus type 2 * Continue metformin * Sliding scale insulin 4. VTE prophylaxis: We will add enoxaparin until his INR is therapeutic 5. Advanced care planning: Confirmed with the patient that he does not want CPR nor intubation. CODE STATUS Comfort Care arrest with no intubation. Code Visit Inpatient E&M: 53539 Init Hosp L3
--- NOTE | 2019-02-10 14:51 | PCM.CONS.C ---
Problem List (1) Diabetes type 2, controlled Status: Chronic (2) Edema of lower extremity Status: Chronic (3) Peripheral vascular disease of lower extremity with ulceration Status: Chronic (4) (HFpEF) heart failure with preserved ejection fraction Status: Acute Qualifiers: Heart failure chronicity: acute Qualified Code(s): I50.31 - Acute diastolic (congestive) heart failure Reason for Consult Date of Consultation: 02/10/19 Reason for Consultation: Shortness of breath, dyspnea on exertion, lower extremity edema, atrial fibrillation History of Present Illness: The patient is a 78 year old M, diabetic, morbidly obese, with hyperlipidemia, with diagnosed obstructive sleep apnea but does not use his CPAP, chronic atrial fibrillation but on Coumadin for several years, but no previous CVA, TIA, or previous cardiac catheterization. Patient's most recent echocardiogram from 07/04/2017 showed intact LV function with an EF of 65%, and RVSP of 31 mmHg. Patient does not see a roll hauler or clinical data associate. 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 He used to drink very heavily but quit drinking around 45 years ago. He has never been told he had cirrhosis. Patient has had difficulty laying down flat for many years due to what appears to be a back injury where his low back becomes painful, with numbness in both of his hips radiating up into his back. Over the last several weeks to months, the patient has had progressively worsening shortness of breath, dyspnea on exertion, abdominal bloating, and lower extremity edema. Patient had very difficult time getting air in today precipitating a visit to [facility] ER. In the emergency room an EKG was performed which showed atrial fibrillation with controlled ventricular response and ventricular bigeminy. No previous myocardial infarction noted by EKG. At no time as the patient had any chest pressure, chest pain or angina. He denies having a previous catheterization or stress test in the past. Patient was treated with nebulizer therapy and a chest x-ray demonstrated what appeared to be bilateral pulmonary edema. After nebulizer therapy his breathing improved but he has some faint wheezing presently. Patient is on chronic Coumadin therapy but his INR is 1.4. The most recent EKG. He is completely unaware of his atrial fibrillation. [] Past Medical History Allergies/Adverse Reactions: Allergies naproxen [From Naprosyn] Allergy (Unknown, Verified 02/10/19 10:45) Unknown acetaminophen [From Vicodin] Allergy (Verified 02/10/19 10:45) Unknown codeine Allergy (Verified 02/10/19 10:45) Unknown gabapentin Allergy (Verified 02/10/19 10:51) Hives hydrocodone [From Vicodin] Allergy (Verified 02/10/19 10:45) Unknown levofloxacin [From Levaquin] Allergy (Verified 02/10/19 10:45) Unknown lisinopril Allergy (Verified 02/10/19 10:51) Hives sertraline [From Zoloft] Allergy (Verified 02/10/19 10:45) Unknown simvastatin [From Zocor] Allergy (Verified 02/10/19 10:52) Hives sulfamethoxazole Allergy (Verified 02/10/19 10:45) Unknown Home Medications: Ambulatory Orders Medication Instructions Recorded Meloxicam 15 mg PO DAILY 05/20/18 Metoprolol Tartrate [Lopressor 50 mg PO BID 05/20/18 (Beta Gilbert)] Pravastatin [Pravachol] 80 mg PO QHS 05/20/18 metFORMIN HCl [Glucophage] 500 mg PO BIDCM 05/20/18 Multivitamin [Multiple Vitamins] 1 ea PO DAILY 08/19/18 Warfarin Sodium [Coumadin] 1 mg PO DAILY 02/10/19 Warfarin Sodium [Coumadin] 5 mg PO DAILY 02/10/19 Past Medical History (Chronic Problems): Chronic Problems (Last Reviewed 10/27/18 @ 08:28 by Anita Downs) Afib (Chronic) Diabetes type 2, controlled (Chronic) Chronic pain disorder (Chronic) 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 Denies: Chest Discomfort, Shortness of Breath, Palpitations, Lightheadedness, Dizziness, Near Syncope, Syncope Respiratory: Denies: Cough, Sputum Production, Hemoptysis Gastrointestinal: Denies: Hematemesis, Hematochezia, Melena Genitourinary: Denies: Dysuria, Hematuria Skin: Denies: Rash Subjectve: Patient sitting in a chair, no acute distress. Objective: Vital Signs Temp Pulse Resp BP Pulse Ox 98.4 F 87 16 154/76 H 94 02/10/19 12:30 02/10/19 12:30 02/10/19 12:30 02/10/19 13:20 02/10/19 13:20 Oxygen Flow Rate (L/min) 2.5 Oxygen Delivery Method Room Air Weight: 265 lb 14.4 oz Body Mass Index (BMI) 41.6 General: Awake, Alert, Oriented x 3 HEENT: PERRL, EOMI, Sclera Non Icteric Neck: Supple, Good ROM, No Lymph Node Enlargement Lungs: Rales - Alek Bases, Rhonchi, Inspiratory Wheezes - Alek Cardiovascular: Irregular Rhythm, Normal S1, Normal S2, No Murmurs, No Rubs, No Gallops Vascular: No Carotid Bruits, Normal Femoral Pulses, Normal Radial Pulses, Normal Dorsalis Pedal Pulse, Normal Posterior Tibial Pulses Abdomen: Bowel Sounds Present, Soft, Non Tender, No HSM, No Organomegaly Extremities: No Cyanosis, No Clubbing, No edema Neurological: No Focal Motor or Sensory Deficit 02/10/19 10:45: WBC 9.4, RBC 4.42 L, Hgb 13.9, Hct 42.9, MCV 97.1 H, MCH 31.4, MCHC 32.4, Plt Count 159, MPV 9.7, Immature Gran % (Auto) 0.300, Neut % (Auto) 79.3 H, Lymph % (Auto) 10.5 L, [place] % (Auto) 6.2, Eos % (Auto) 3.2, Baso % (Auto) 0.5, Absolute Neuts (auto) 7.4, Nucleated RBC % 0 02/10/19 10:45: Sodium 135 L, Potassium 4.3, Chloride 102, Carbon Dioxide 27.0, Anion Gap 6, BUN 20 H, Creatinine 1.21, Est GFR (MDRD) Af Amer 75, Est GFR (MDRD) Non-Af 62, BUN/Creatinine Ratio 16.5, Glucose 178 H, Calcium 9.0, Troponin I < 0.015 02/10/19 10:45: PT 17.2 H, INR 1.4 02/10/19 10:45: B-Natriuretic Peptide 989.8 H Rhythm: EKG: ECHO: Stress Test: Cardiac Cath: PCI: CT Surgery: Holter monitor: EPS: PPM: CXR: Chest CT Scan: Assessment/Plan 1. Shortness of breath: Patient has known obstructive sleep apnea but is unable to tolerate his CPAP and has not been using it. He has had no echocardiogram since June 2017 but at that time his LV function was normal and his RVSP was estimated be 31 mmHg. Patient now has had progressively worsening shortness of breath, dyspnea on exertion, abdominal fullness, and worsening lower extremity edema. In addition he has chronic atrial fibrillation and has been taking his Coumadin however his INR is subtherapeutic today. Chest x-ray demonstrates possible bilateral pulmonary vascular redistribution and pulmonary edema. He appeared to gain some benefit from nebulizer therapy but still has some audible bilateral wheezing. I recommended the patient undergo a 2D echo with Doppler to determine if his LV function has worsened and/or to estimate his pulmonary pressures which appear to be elevated on today's exam. I would not recommend stress testing at this time as the patient obviously presents with at least right-sided heart failure. In addition I recommend Lasix IV 40 mg twice daily and attempt to remove 1 to 2 L of fluid per day. In addition I recommend holding his Coumadin therapy and switching him to full dose Lovenox therapy of 70 mg subcu twice daily. Once the patient is able to lay down flat, at least from a respiratory standpoint, as well as from a pulmonary edema standpoint, I would recommend that he undergo left and right heart catheterization on Wednesday. To that end, I recommend the patient be placed on baby aspirin 81 mg p.o. daily and ruled out for myocardial infarction with troponins every 4-6 hours x3 sets. In addition recommending a 1500 cc fluid restriction as well as Cosme bandage wraps to his legs. Recommend holding on beta-blockers at this time until his congestive heart failure has been optimized. 2. Atrial fibrillation: The patient appears to have chronic persistent atrial fibrillation is been on Coumadin for a number of years although he is unsure why he is on Coumadin. He is unaware of his atrial fibrillation. It is unlikely the patient would have successful DC cardioversion without amiodarone assistance. Nonetheless, I believe the patient would benefit from normal sinus rhythm to improve his cardiac output. Recommend holding his Coumadin for upcoming left and right heart catheterization once medically optimized, and switching to temporary Lovenox 70 mg subcu twice daily in its place. 3. Hyperlipidemia: Recommend obtaining a fasting lipid profile. 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 Recommend obtaining complete metabolic profile to determine if patient has any underlying liver disease as a result of his alcohol use. 4. Pulmonary: The patient was exposed to industrial chemicals at [employer] for many many years. He has audible wheezing on physical exam and seem to canales benefit to nebulizer therapy. The patient may have undiagnosed pulmonary disease that may benefit from full pulmonary function test once his luminary status has been optimized. Recommend considering pulmonary consultation. 5. Thank you very much for the opportunity to participate in the cardiac care of your patient. Consultation time took place between 230 and 3 PM. Code Visit Inpatient E&M: 50234 Init Hosp L2
[2019-02-10] MEDS: Furosemide 40 MG/4 ML Vial IV ×2 (15:14→16:57)
[2019-02-10] MEDS: 0.9% NaCl Peripheral Flush Adult/Peds IV (15:14)
[2019-02-10 15:30] LABS: Bedside Glucose 167 mg/dL (70-110)
--- NOTE | 2019-02-10 16:31 | CHAPLAIN ---
Type of Pastoral Visit _x__ Initial Visit ___ Follow-up Visit ___ On-call Visit ___ General Patient Visit ___ Spiritual Assessment ___ Family Conference ___ Bereavement ___ Rapid Response ___ Code Blue ___ Other (describe below) Pastoral Care Referral From _x__ Patient ___ Family ___ Nurse ___ Physician ___ Fire Sprinkler Inspector ___ Automotive Power Electronics Engineer ___ Other (describe below) Sacrament/Intervention _x__ Active listening ___ Anointing ___ Mormonism ___ Bereavement ___ Communion ___ Laura exploration ___ ___ Life review _x__ Prayer ___ Reconciliation ___ Sacrament of Sick _x__ Supportive presence ___ Wedding ___ Other (describe below) Pastoral Comments
[2019-02-10] MEDS: Enoxaparin 80 MG/0.8 ML Syringe SC (16:52)
[2019-02-10] MEDS: Insulin Lispro 100 UNIT/ML INSULN.PEN SC ×2 (16:52→22:39)
[2019-02-10] MEDS: metFORMIN HCl 500 MG Tablet PO (16:55)
[2019-02-10] MEDS: Glucerna Shake 120 ML LIQUID PO ×2 (16:57→21:57)
[2019-02-10] MEDS: Metoprolol Tartrate 50 MG Tablet PO (21:57)
[2019-02-10] MEDS: Pravastatin 80 MG Tablet PO (21:58)
[2019-02-10 22:16] LABS: Bedside Glucose 240 mg/dL (70-110)
[2019-02-11] VITALS (14 sets, daily range): BP systolic 136–147; BP diastolic 64–71; PULSE 54–66; RESP 18–22; TEMP 36.6–36.9; O2SAT 86–98
--- NOTE | 2019-02-11 05:01 | EKG12_ITS ---
Test Reason : RHYTHM CHANGE Blood Pressure : / mmHG Vent. Rate : 060 BPM Atrial Rate : 060 BPM P-R Int : 210 ms QRS Dur : 098 ms QT Int : 432 ms P-R-T Axes : 022 059 095 degrees QTc Int : 432 ms Sinus rhythm with 1st degree A-V block with Premature atrial complexes with Aberrant conduction Nonspecific T wave abnormality Abnormal ECG When compared with ECG of 10-FEB-2019 11:12, MANUAL COMPARISON REQUIRED, DATA IS UNCONFIRMED Confirmed by CARLOS GARCIA ([id number]), editor index JOSE LUIS PEARCE ([id number] on 02/21/2019 1:03:34 PM Referred By: Mehran Lindsay Confirmed By:CARLOS GARCIA
[2019-02-11 05:54] LABS: International Normalized Ratio 1.5
[2019-02-11] MEDS: Enoxaparin 80 MG/0.8 ML Syringe SC ×2 (05:56→16:45)
[2019-02-11] MEDS: Bisacodyl 5 MG Tablet PO (05:59)
[2019-02-11 06:19] LABS: Anion Gap 6 (5-15); BUN 28 mg/dL (7-18); BUN/Creat Ratio 21.7 RATIO (10-20); Calcium,Total 8.9 mg/dL (8.5-10.1); Chloride 101 mmol/L (98-107); Creatinine, Serum 1.29 mg/dL (0.70-1.30); EST Glomerular Filtration Rate 57 mL/min (>60); Est Glom Filt Rate - Afr Amer 69 mL/min (>60); Estimated Creatinine Clearance 44.12 ml/min; Glucose 142 mg/dL (74-106); Magnesium 2.1 mg/dL (1.6-2.6); Potassium 4.5 mmol/L (3.5-5.1); Sodium Level 138 mmol/L (136-145); Thyroid Stim Hormone (TSH) 0.57 uIU/mL (0.358-3.74)
[2019-02-11] MEDS: Insulin Lispro 100 UNIT/ML INSULN.PEN SC (06:50)
[2019-02-11 07:10] LABS: Bedside Glucose 171 mg/dL (70-110)
[2019-02-11] MEDS: Losartan Potassium 50 MG Tablet PO (08:54)
[2019-02-11] MEDS: Multivitamins,Therapeutic Tablet 1 TABLET PO (08:54)
[2019-02-11] MEDS: Furosemide 40 MG/4 ML Vial IV ×2 (08:55→16:45)
[2019-02-11] MEDS: Glucerna Shake 120 ML LIQUID PO ×4 (08:55→22:09)
[2019-02-11] MEDS: 0.9% NaCl Peripheral Flush Adult/Peds IV ×2 (08:55→16:46)
--- NOTE | 2019-02-11 09:26 | PN_ITS ---
Patient Problems: Active and Suspected Problems (Last Updated 02/10/19 @ 14:28 by Mehran Lindsay DO) (HFpEF) heart failure with preserved ejection fraction (Acute) Subjective: Patient was seen and examined. He appears much improved. He denied any worsening shortness of breath no chest pain or palpitation. He was just taken off oxygen he appears to be doing well. He has been diuresing a lot. Objective: Physical Exam General: Alert, Cooperative, No apparent distress HEENT: Atraumatic, Normocephalic, - - No icterus Oral: Moist Mucosa, No Gingival or Mucosal Lesions/ Ulcerations Neck: No Nodes, Trachea Midline, - - Thick neck and unable to appreciate any JVD Lungs: Diminished, - - Coarse breath sounds bilaterally Cardiovascular: Irregular Rate, - - 2 out of 6 systolic ejection murmur at the right upper sternal border Abdomen: Bowel Sounds Present, Soft, Non Tender, Non-Distended, No Hepato- splenomegaly, Obese Extremities: No Calf Tenderness, Edema - Taut in the lower extremities Skin: No breakdown, - - Venous stasis dermatitis bilateral lower extremities Musculoskeletal: No Tenderness to Palpation of Joints or Extremities, No Muscle Wasting Neurological: Muscle tone normal, - - No clonus Psych/Mental Status: Normal Affect, Appropriate Vitals/I&O's: Vital Signs Temp Pulse Resp BP Pulse Ox 98 F 56 L 18 143/64 H 94 02/11/19 09:00 02/11/19 09:00 02/11/19 09:00 02/11/19 09:00 02/11/19 09:00 Oxygen Flow Rate (L/min) 2 Oxygen Delivery Method Room Air Weight: 116 kg Body Mass Index (BMI) 41.6 Intake and Output for Last 24 Hours 02/09/19 02/10/19 02/11/19 23:59 23:59 23:59 Intake Total 50 / 50 Output Total 1400 / 4050 2950 / 2950 Balance -1400 / -4050 -2900 / -2900 Laboratory Results 02/10/19 10:45: WBC 9.4, RBC 4.42 L, Hgb 13.9, Hct 42.9, MCV 97.1 H, MCH 31.4, MCHC 32.4, RDW Std Deviation 51.4 H, RDW Coeff of [place] 14.2, Plt Count 159, MPV 9.7, Immature Gran % (Auto) 0.300, Neut % (Auto) 79.3 H, Lymph % (Auto) 10.5 L, [place] % (Auto) 6.2, Eos % (Auto) 3.2, Baso % (Auto) 0.5, Absolute Neuts (auto) 7.4, Absolute Lymphs (auto) 0.98, Nucleated RBC % 0 02/10/19 10:45: Sodium 135 L, Potassium 4.3, Chloride 102, Carbon Dioxide 27.0, Anion Gap 6, BUN 20 H, Creatinine 1.21, Estim Creat Clear Calc 47.04, Est GFR (MDRD) Af Amer 75, Est GFR (MDRD) Non-Af 62, BUN/Creatinine Ratio 16.5, Glucose 178 H, Calcium 9.0, Troponin I < 0.015 02/10/19 10:45: PT 17.2 H, INR 1.4 02/10/19 10:45: B-Natriuretic Peptide 989.8 H 02/10/19 15:00: Hemoglobin A1c 6.0 02/10/19 15:00: Troponin I < 0.015 02/10/19 15:18: POC Glucose 167 H 02/10/19 17:56: Troponin I < 0.015 02/10/19 21:53: POC Glucose 240 H 02/11/19 05:15: PT 18.0 H, INR 1.5 02/11/19 05:15: Sodium 138, Potassium 4.5, Chloride 101, Carbon Dioxide 31.0, Anion Gap 6, BUN 28 H, Creatinine 1.29, Estim Creat Clear Calc 44.12, Est GFR (MDRD) Af Amer 69, Est GFR (MDRD) Non-Af 57 L, BUN/Creatinine Ratio 21.7 H, Glucose 142 H, Calcium 8.9, Magnesium 2.1, TSH 0.57 02/11/19 06:48: POC Glucose 171 H Current Medications Acetaminophen (Tylenol) 650 mg PO Q6H PRN PRN PRN Reason: Mild pain 1-3/Temp > 100.7 F Albuterol Sulfate (Ventolin Aerosols) 2.5 mg INHALATION Q2H PRN PRN PRN Reason: SOB/Wheezing Bisacodyl (Dulcolax) 5 mg PO DAILY PRN PRN PRN Reason: Constipation Last Admin: 02/11/19 05:59 Dose: 5 mg Documented by: Dextrose (D50w Syringe) 0 gm IV X1 PRN; Protocol PRN Reason: Hypoglycemia Enoxaparin Sodium (Lovenox) 80 mg SC Q12@0600,1800 [facility] Last Admin: 02/11/19 05:56 Dose: 80 mg Documented by: Furosemide (Lasix) 40 mg IV BIDLX [facility] Last Admin: 02/11/19 08:55 Dose: 40 mg Documented by: Glucagon () 1 mg IM .X1 PRN PRN Reason: Hypoglycemia Insulin Human Lispro (Humalog Kwikpen (Bkc)) 0 unit SC ACHS [facility]; Protocol Last Admin: 02/11/19 06:50 Dose: 1 unit Documented by: Losartan Potassium (Cozaar) 50 mg PO DAILY [facility] Last Admin: 02/11/19 08:54 Dose: 50 mg Documented by: Melatonin (Melatonin) 3 mg PO QHS PRN PRN PRN Reason: INSOMNIA Metformin HCl (Glucophage) 500 mg PO BIDCM [facility] Last Admin: 02/10/19 16:55 Dose: 500 mg Documented by: Metoprolol Tartrate (Lopressor (Beta Gilbert)) 50 mg PO BID [facility] Last Admin: 02/10/19 21:57 Dose: 50 mg Documented by: Multivitamins (Multivitamin) 1 tablet PO DAILY@0800 [facility] Last Admin: 02/11/19 08:54 Dose: 1 tablet Documented by: Nutritional Formula (Lactose Free) (Glucerna Shake) 120 ml PO 4X/DAY [facility] Last Admin: 02/11/19 08:55 Dose: 60 ml Documented by: Ondansetron HCl (Zofran) 4 mg IV Q8H PRN PRN PRN Reason: NAUSEA/VOMITING Pravastatin Sodium (Pravachol) 80 mg PO QHS [facility] Last Admin: 02/10/19 21:58 Dose: 80 mg Documented by: Senna/Docusate Sodium (Senokot-S, Yokasta-Colace) 2 tablet PO BID PRN PRN PRN Reason: Constipation Sodium Chloride () 10 - 40 ml IV UD PRN PRN Reason: SALINE FLUSH Last Admin: 02/11/19 08:55 Dose: 10 ml Documented by: Medical Necessity - Tobacco Use Smoking Status: Former smoker Tobacco Use: Non-smoker Assessment/Plan All Active Problems (Last Updated 02/10/19 @ 14:28 by Mehran Lindsay DO) (HFpEF) heart failure with preserved ejection fraction (Acute) Decubitus ulcer of right buttock, stage 2 (Acute) Traumatic skin ulcer with fat layer exposed (Acute) Cellulitis of lower extremity (Acute) Nonhealing nonsurgical wound with fat layer exposed (Acute) 1. Acute on chronic diastolic EF, EF 55%, diuresing well with IV Lasix, Will continue with Lasix and CHF protocol 2. Pulmonary hypertension, RVSP could notbe quantitated on 2d -ECHO, neurology consulted, will be evaluated with a heart cath 2. Chronic atrial fibrillation, Coumadin held, on therapeutic Lovenox for planned procedures. 3. Type 2 DM, blood sugars are fairly controlled, off metformin, on insulin sliding scale 4. Morbid obesity, [place] 40.1, lifestyle modifications 5. DVT PPx- Lovenox SC therapeutic dosing Code Visit Inpatient E&M: 99538 Subs Hosp L2
--- NOTE | 2019-02-11 10:01 | PCM.PN.CARD ---
Subjectve: Patient sitting in a chair, no acute distress. Reports improved breathing, but still not back to normal. Patient is able to lay down flat however not for very long due to severe lower back pain which is never been fully evaluated. Net negative urine output of 4.4 L. Objective: Vital Signs Temp Pulse Resp BP Pulse Ox 98 F 56 L 18 143/64 H 94 02/11/19 09:00 02/11/19 09:00 02/11/19 09:00 02/11/19 09:00 02/11/19 09:00 Oxygen Flow Rate (L/min) 2 Oxygen Delivery Method Room Air Weight: 255 lb 11.779 oz Body Mass Index (BMI) 41.6 Intake and Output for Last 24 Hours 02/09/19 02/10/19 02/11/19 23:59 23:59 23:59 Intake Total 50 / 50 Output Total 1400 / 4050 2950 / 2950 Balance -1400 / -4050 -2900 / -2900 General: Awake, Alert, Oriented x 3 HEENT: PERRL, EOMI, Sclera Non Icteric Neck: Supple, Good ROM, No Lymph Node Enlargement Lungs: Clear to auscultation Cardiovascular: Regular Rhythm, Normal S1, Normal S2, No Murmurs, No Rubs, No Gallops 02/10/19 10:45: WBC 9.4, RBC 4.42 L, Hgb 13.9, Hct 42.9, MCV 97.1 H, MCH 31.4, MCHC 32.4, Plt Count 159, MPV 9.7, Immature Gran % (Auto) 0.300, Neut % (Auto) 79.3 H, Lymph % (Auto) 10.5 L, [place] % (Auto) 6.2, Eos % (Auto) 3.2, Baso % (Auto) 0.5, Absolute Neuts (auto) 7.4, Nucleated RBC % 0 02/10/19 10:45: Sodium 135 L, Potassium 4.3, Chloride 102, Carbon Dioxide 27.0, Anion Gap 6, BUN 20 H, Creatinine 1.21, Est GFR (MDRD) Af Amer 75, Est GFR (MDRD) Non-Af 62, BUN/Creatinine Ratio 16.5, Glucose 178 H, Calcium 9.0, Troponin I < 0.015 02/10/19 10:45: PT 17.2 H, INR 1.4 02/10/19 10:45: B-Natriuretic Peptide 989.8 H 02/10/19 15:00: Hemoglobin A1c 6.0 02/10/19 15:00: Troponin I < 0.015 02/10/19 17:56: Troponin I < 0.015 02/11/19 05:15: PT 18.0 H, INR 1.5 02/11/19 05:15: Sodium 138, Potassium 4.5, Chloride 101, Carbon Dioxide 31.0, Anion Gap 6, BUN 28 H, Creatinine 1.29, Est GFR (MDRD) Af Amer 69, Est GFR (MDRD) Non-Af 57 L, BUN/Creatinine Ratio 21.7 H, Glucose 142 H, Calcium 8.9, Magnesium 2.1 Rhythm: EKG: ECHO: Mild global LV dysfunction with an EF around 50 to 55%, unable to quantitate RVSP. Stress Test: Cardiac Cath: PCI: CT Surgery: Holter monitor: EPS: PPM: CXR: Chest CT Scan: Medical Necessity - Tobacco Use Smoking Status: Former smoker Tobacco Use: Non-smoker Assessment/Plan 1. Shortness of breath: Patient has known obstructive sleep apnea but is unable to tolerate his CPAP and has not been using it. He has had no echocardiogram since June 2017 but at that time his LV function was normal and his RVSP was estimated be 31 mmHg. Patient now has had progressively worsening shortness of breath, dyspnea on exertion, abdominal fullness, and worsening lower extremity edema. In addition he has chronic atrial fibrillation and has been taking his Coumadin however his INR is subtherapeutic today. Chest x-ray demonstrated possible bilateral pulmonary vascular redistribution and pulmonary edema. He appeared to gain some benefit from nebulizer therapy but still has some audible bilateral wheezing. Patient underwent repeat echocardiogram on 02/10/2019 which showed mild global LV dysfunction with an EF of approximately 50 to 55%, unable to quantitate RVSP. I would not recommend stress testing at this time as the patient obviously presents with at least right-sided heart failure. In addition I recommend Lasix IV 40 mg twice daily and attempt to remove 1 to 2 L of fluid per day. In addition I recommend holding his Coumadin therapy and switching him to full dose Lovenox therapy of 70 mg subcu twice daily. Once the patient is able to lay down flat, at least from a respiratory standpoint, as well as from a back pain standpoint, I would recommend that he undergo left and right heart catheterization on Wednesday morning. If he is unable to lay down flat, we can use a wedge device, and if he is unable to tolerate that, I would only pursue left heart catheterization plus/minus PCI if indicated. To that end, I recommend the patient be placed on baby aspirin 81 mg p.o. daily. He is ruled out for myocardial infarction. In addition recommending a 1500 cc fluid restriction as well as Cosme bandage wraps to his legs. Recommend holding on beta-blockers at this time until his congestive heart failure has been optimized. Would recommend loading him with Plavix 300 mg x 1 now followed by 75 mg a day for possible anticipated PCI if indicated. 2. Atrial fibrillation: The patient appears to have chronic persistent atrial fibrillation is been on Coumadin for a number of years although he is unsure why he is on Coumadin. He is unaware of his atrial fibrillation. It is unlikely the patient would have successful DC cardioversion without amiodarone assistance. Nonetheless, I believe the patient would benefit from normal sinus rhythm to improve his cardiac output. Recommend holding his Coumadin for upcoming left and right heart catheterization once medically optimized, and switching to temporary Lovenox 70 mg subcu twice daily in its place. I do not believe the patient would be a good candidate for atrial fibrillation ablation at this time. 3. Hyperlipidemia: Recommend obtaining a fasting lipid profile. 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 Recommend obtaining complete metabolic profile to determine if patient has any underlying liver disease as a result of his alcohol use. 4. Pulmonary: The patient was exposed to industrial chemicals at [facility] for many many years. He has audible wheezing on physical exam and seem to canales benefit to nebulizer therapy. The patient may have undiagnosed pulmonary disease that may benefit from full pulmonary function test once his luminary status has been optimized. Recommend considering pulmonary consultation. 5. Thank you very much for the opportunity to participate in the cardiac care of your patient. Code Visit Inpatient E&M: 89730 Subs Hosp L2
[2019-02-11 11:35] LABS: Bedside Glucose 124 mg/dL (70-110)
[2019-02-11] MEDS: Clopidogrel Bisulfate 300 MG Tablet PO (14:20)
[2019-02-11 16:16] LABS: Bedside Glucose 112 mg/dL (70-110)
--- NOTE | 2019-02-11 16:32 | CM.UR ---
RN CM Assessment Met face to face with patient approximately 1pm. Introduced role of RN CM to patient. Patient is alert and able to participate in RN CM Assessment. Currently sitting in chair with both feet elevated. Care providers, pharmacy, and demographics verified. at bedside. Presentation: Progressively worsening shortness of breath. Admit Dx: heart failure Re-Admit: no Barriers/Issues: none noted PCP: Todd Specialists: Dr. Mello Preferred Pharmacy: [facility] Insurance: MCR w/cigna secondary Rx Benefit: Yes. Denies problems w/copays. LNOK: Ene LW/HPOA: none. Booklet given and instructed on how one can be completed both while IP and after discharge. verb understanding. Living Arrangements: Lives in 1 story home. Has several steps to get in OR can go through garage which has ramp. ADL?s: Independent. States had about 4 falls over the last several years. States he is really careful and his stays right with him when stepping down steps or off a curb. Discussed personal emergency response system (i.e. life alert) however patient declined stating he did not need it. Transportation: drives self. DME: Walker, ramp DME co: No preference. HHC: None SNF: None Goal: to return home. DC PLAN: To return home. Possibly with oxygen. Completed green sheet and given to floor in case discharged tomorrow. Fernando Garzon RN, CCM.
[2019-02-11] MEDS: Pravastatin 80 MG Tablet PO (22:05)
[2019-02-11] MEDS: Metoprolol Tartrate 50 MG Tablet PO (22:05)
[2019-02-11 22:55] LABS: Bedside Glucose 130 mg/dL (70-110)
[2019-02-12] VITALS (13 sets, daily range): BP systolic 115–127; BP diastolic 55–60; PULSE 50–74; RESP 16–18; TEMP 36.6–36.8; O2SAT 96–99
[2019-02-12] MEDS: Enoxaparin 80 MG/0.8 ML Syringe SC ×2 (05:23→16:35)
[2019-02-12 06:41] LABS: Bedside Glucose 103 mg/dL (70-110)
--- NOTE | 2019-02-12 07:51 | PN_ITS ---
Patient Problems: Active and Suspected Problems (Last Updated 02/10/19 @ 14:28 by Mehran Lindsay DO) (HFpEF) heart failure with preserved ejection fraction (Acute) Subjective: Patient was seen and examined. He feels the same. Back on nasal canula oxygen. Denies chest pain, dizziness, palpitations. He has been diuresing very well. Objective: Physical Exam General: Alert, Cooperative, No apparent distress, on 2L oxygen HEENT: Atraumatic, Normocephalic, - - No icterus Oral: Moist Mucosa, No Gingival or Mucosal Lesions/ Ulcerations Neck: No Nodes, Trachea Midline, - - Thick neck and unable to appreciate any JVD Lungs: Diminished, - - Coarse breath sounds bilaterally Cardiovascular: Irregular Rate, - - 2 out of 6 systolic ejection murmur at the right upper sternal border Abdomen: Bowel Sounds Present, Soft, Non Tender, Non-Distended, No Hepato- splenomegaly, Obese Extremities: No Calf Tenderness, Edema - Taut in the lower extremities Skin: No breakdown, - - Venous stasis dermatitis bilateral lower extremities Musculoskeletal: No Tenderness to Palpation of Joints or Extremities, No Muscle Wasting Neurological: Muscle tone normal, - - No clonus Psych/Mental Status: Normal Affect, Appropriate Vitals/I&O's: Vital Signs Temp Pulse Resp BP Pulse Ox 98.1 F 54 L 18 127/55 H 96 02/12/19 03:00 02/12/19 03:00 02/12/19 03:00 02/12/19 03:00 02/12/19 07:35 Oxygen Flow Rate (L/min) 2 Oxygen Delivery Method Nasal Cannula Weight: 116 kg Body Mass Index (BMI) 41.6 Intake and Output for Last 24 Hours 02/10/19 02/11/19 02/12/19 23:59 23:59 23:59 Intake Total 680 / 740 60 / 60 Output Total 1400 / 4050 5200 / 5675 850 / 850 Balance -1400 / -4050 -4520 / -4935 -790 / -790 Laboratory Results 02/11/19 11:28: POC Glucose 124 H 02/11/19 16:08: POC Glucose 112 H 02/11/19 22:03: POC Glucose 130 H 02/12/19 06:33: POC Glucose 103 Current Medications Acetaminophen (Tylenol) 650 mg PO Q6H PRN PRN PRN Reason: Mild pain 1-3/Temp > 100.7 F Albuterol Sulfate (Ventolin Aerosols) 2.5 mg INHALATION Q2H PRN PRN PRN Reason: SOB/Wheezing Bisacodyl (Dulcolax) 5 mg PO DAILY PRN PRN PRN Reason: Constipation Last Admin: 02/11/19 05:59 Dose: 5 mg Documented by: Clopidogrel Bisulfate (Plavix) 75 mg PO DAILY [facility] Dextrose (D50w Syringe) 0 gm IV X1 PRN; Protocol PRN Reason: Hypoglycemia Enoxaparin Sodium (Lovenox) 80 mg SC Q12@0600,1800 [facility] Last Admin: 02/12/19 05:23 Dose: 80 mg Documented by: Furosemide (Lasix) 40 mg IV BIDLX [facility] Last Admin: 02/11/19 16:45 Dose: 40 mg Documented by: Glucagon () 1 mg IM .X1 PRN PRN Reason: Hypoglycemia Insulin Human Lispro (Humalog Kwikpen (Bkc)) 0 unit SC ACHS [facility]; Protocol Last Admin: 02/12/19 06:35 Dose: Not Given Documented by: Losartan Potassium (Cozaar) 50 mg PO DAILY [facility] Last Admin: 02/11/19 08:54 Dose: 50 mg Documented by: Melatonin (Melatonin) 3 mg PO QHS PRN PRN PRN Reason: INSOMNIA Metoprolol Tartrate (Lopressor (Beta Gilbert)) 50 mg PO BID [facility] Last Admin: 02/11/19 22:05 Dose: 50 mg Documented by: Multivitamins (Multivitamin) 1 tablet PO DAILY@0800 [facility] Last Admin: 02/11/19 08:54 Dose: 1 tablet Documented by: Nutritional Formula (Lactose Free) (Glucerna Shake) 120 ml PO 4X/DAY [facility] Last Admin: 02/11/19 22:09 Dose: 120 ml Documented by: Ondansetron HCl (Zofran) 4 mg IV Q8H PRN PRN PRN Reason: NAUSEA/VOMITING Pravastatin Sodium (Pravachol) 80 mg PO QHS [facility] Last Admin: 02/11/19 22:05 Dose: 80 mg Documented by: Senna/Docusate Sodium (Senokot-S, Yokasta-Colace) 2 tablet PO BID PRN PRN PRN Reason: Constipation Sodium Chloride () 10 - 40 ml IV UD PRN PRN Reason: SALINE FLUSH Last Admin: 02/11/19 16:46 Dose: 10 ml Documented by: Medical Necessity - Tobacco Use Smoking Status: Former smoker Tobacco Use: Non-smoker Assessment/Plan All Active Problems (Last Updated 02/10/19 @ 14:28 by Mehran Lindsay DO) (HFpEF) heart failure with preserved ejection fraction (Acute) Decubitus ulcer of right buttock, stage 2 (Acute) Traumatic skin ulcer with fat layer exposed (Acute) Cellulitis of lower extremity (Acute) Nonhealing nonsurgical wound with fat layer exposed (Acute) Summary of care: 78-year-old male with past medical history of chronic atrial fibrillation, type II DM, chronic pain, PAD who was admitted on 02/10/19 with progressive shortness of breath, cough and found to be hypoxic with SPO2 of 85%. Patient's work-up was consistent with acute on chronic diastolic CHF. Cardiology has been consulted. 1. Acute on chronic diastolic EF, EF 55%, patient is diuresing well; almost 8 L of urine since admission Continue on IV Lasix 40 twice daily and CHF protocol. Cardiology plans on both left and right heart cath this week 2. Pulmonary hypertension, RVSP could not be quantitated on 2d -ECHO, possible right heart catheter this week 2. Chronic atrial fibrillation, Coumadin held, on therapeutic Lovenox for planned procedures. 3. Type 2 DM, blood sugars are controlled, off metformin, on insulin sliding scale 4. Morbid obesity, [place] 40.1, lifestyle modifications recommended 5. DVT PPx- Lovenox SC therapeutic dosing Code Visit Inpatient E&M: 62269 Subs Hosp L2
--- NOTE | 2019-02-12 09:51 | PN.CARD_ITS ---
Subjectve: Patient states that he is no different than yesterday, no chest pain or angina. Still unable to lay down flat due to back pain and shortness of breath. Net negative output since admission about 7 L. Lower extremity edema markedly improved but still not back to baseline. Telemetry showed normal sinus rhythm with rare PVC. Objective: Vital Signs Temp Pulse Resp BP Pulse Ox 97.8 F 53 L 18 121/60 H 98 02/12/19 09:00 02/12/19 09:00 02/12/19 09:00 02/12/19 09:00 02/12/19 09:00 Oxygen Flow Rate (L/min) 2 Oxygen Delivery Method Nasal Cannula Weight: 249 lb 5.485 oz Body Mass Index (BMI) 41.6 Intake and Output for Last 24 Hours 02/10/19 02/11/19 02/12/19 23:59 23:59 23:59 Intake Total 680 / 740 60 / 60 Output Total 1400 / 4050 5200 / 5675 850 / 850 Balance -1400 / -4050 -4520 / -4935 -790 / -790 General: Awake, Alert, Oriented x 3 HEENT: PERRL, EOMI, Sclera Non Icteric Neck: Supple, Good ROM, No Lymph Node Enlargement Lungs: Clear to auscultation Cardiovascular: Regular Rhythm, Normal S1, Normal S2, No Murmurs, No Rubs, No Gallops Vascular: No Carotid Bruits, Normal Femoral Pulses, Normal Radial Pulses, Normal Dorsalis Pedal Pulse, Normal Posterior Tibial Pulses Abdomen: Bowel Sounds Present, Soft, Non Tender, No HSM, No Organomegaly Extremities: No Cyanosis, No Clubbing, Bilateral Edema +2 Neurological: No Focal Motor or Sensory Deficit Rhythm: EKG: ECHO: Stress Test: Cardiac Cath: PCI: CT Surgery: Holter monitor: EPS: PPM: CXR: Chest CT Scan: Medical Necessity - Tobacco Use Smoking Status: Former smoker Tobacco Use: Non-smoker Assessment/Plan 1. Shortness of breath: Patient has known obstructive sleep apnea but is unable to tolerate his CPAP and has not been using it. He has had no echocardiogram since June 2017 but at that time his LV function was normal and his RVSP was estimated be 31 mmHg. Patient now has had progressively worsening shortness of breath, dyspnea on exertion, abdominal fullness, and worsening lower extremity edema. In addition he has chronic atrial fibrillation and has been taking his Coumadin however his INR is subtherapeutic today. Chest x-ray demonstrated possible bilateral pulmonary vascular redistribution and pulmonary edema. He appeared to gain some benefit from nebulizer therapy but still has some audible bilateral wheezing. Patient underwent repeat echocardiogram on 02/10/2019 which showed mild global LV dysfunction with an EF of approximately 50 to 55%, unable to quantitate RVSP. I would not recommend stress testing at this time as the patient obviously presents with at least right-sided heart failure. In addition I recommend Lasix IV 40 mg twice daily and attempt to remove 1 to 2 L of fluid per day. In addition I recommend holding his Coumadin therapy and switching him to full dose Lovenox therapy of 70 mg subcu twice daily. Once the patient is able to lay down flat, at least from a respiratory sta ndpoint, as well as from a back pain standpoint, I recommend a left and right heart catheterization. Patient states that he is still not able to lay down flat due to back pain, and he will most likely require a wedge device for his catheterization. If he is unable to lay down flat, we can use a wedge device, and if he is unable to tolerate that, I would only pursue left heart catheterization plus/minus PCI if indicated. To that end, I recommend the patient be placed on baby aspirin 81 mg p.o. daily. He is ruled out for myocardial infarction. In addition recommending a 1500 cc fluid restriction as well as Cosme bandage wraps to his legs. Recommend holding on beta-blockers at this time until his congestive heart failure has been optimized. Would recommend loading him with Plavix 300 mg x 1 now followed by 75 mg a day for possible anticipated PCI if indicated. I will reassess tomorrow morning with the patient can undergo a left heart catheterization. He will most likely require pain medication for his back in order to tolerate the procedure. 2. Atrial fibrillation: The patient appears to have chronic persistent atrial fibrillation is been on Coumadin for a number of years although he is unsure why he is on Coumadin. He is unaware of his atrial fibrillation. It is unlikely the patient would have successful DC cardioversion without amiodarone assistance. Nonetheless, I believe the patient would benefit from normal sinus rhythm to improve his cardiac output. Recommend holding his Coumadin for upcoming left and right heart catheterization once medically optimized, and switching to temporary Lovenox 70 mg subcu twice daily in its place. I do not believe the patient would be a good candidate for atrial fibrillation ablation at this time. 3. Hyperlipidemia: Recommend obtaining a fasting lipid profile. 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 Recommend obtaining complete metabolic profile to determine if patient has any underlying liver disease as a result of his alcohol use. 4. Pulmonary: The patient was exposed to industrial chemicals at [facility] ([facility]) for many many years. He has audible wheezing on physical exam and seem to canales benefit to nebulizer therapy. The patient may have undiagnosed pulmonary disease that may benefit from full pulmonary function test once his luminary status has been optimized. Recommend considering pulmonary consultation. 5. Thank you very much for the opportunity to participate in the cardiac care of your patient. Code Visit Inpatient E&M: 37065 Subs Hosp L2
[2019-02-12] MEDS: Clopidogrel Bisulfate 75 MG Tablet PO (09:52)
[2019-02-12] MEDS: Furosemide 40 MG/4 ML Vial IV ×2 (09:52→16:35)
[2019-02-12] MEDS: Multivitamins,Therapeutic Tablet 1 TABLET PO (09:53)
[2019-02-12] MEDS: Glucerna Shake 120 ML LIQUID PO (09:53)
[2019-02-12] MEDS: Losartan Potassium 50 MG Tablet PO (09:53)
[2019-02-12 11:08] LABS: Cholesterol 106 mg/dL (200); High Density Lipoprotein 44 mg/dL; Triglycerides 75 mg/dL; Very Low Density Lipoprotein 15 mg/dL (5-40)
[2019-02-12 12:15] LABS: Bedside Glucose 118 mg/dL (70-110)
[2019-02-12] MEDS: Ipratropium/Albuterol Sulfate 3 ML AMPUL.NEB INHALATION ×3 (14:57→23:56)
[2019-02-12] MEDS: Glucerna Shake 120 ML LIQUID 60 ML PO ×2 (16:35→21:20)
[2019-02-12 16:45] LABS: Bedside Glucose 121 mg/dL (70-110)
[2019-02-12] MEDS: Metoprolol Tartrate 50 MG Tablet PO (21:09)
[2019-02-12 21:15] LABS: Bedside Glucose 125 mg/dL (70-110)
[2019-02-12] MEDS: Pravastatin 80 MG Tablet PO (21:20)
[2019-02-12] MEDS: MELATONIN 3 MG TABLET PO (21:47)
[2019-02-12] MEDS: 0.9% NaCl Peripheral Flush Adult/Peds IV (21:48)
[2019-02-13] VITALS (12 sets, daily range): BP systolic 110–131; BP diastolic 55–73; PULSE 61–97; RESP 12–18; TEMP 36.6–36.8; O2SAT 97–100
[2019-02-13 05:44] LABS: Absolute Lymphocyte Count 0.78 X10^3/uL (0.83-4.51); Absolute Neutrophil Count 2.3 X10^3/uL (2.0-7.7); Basophil# 0.02 X10^3/uL; Basophil% 0.5 % (0-1); Eosinophil# 0.29 X10^3/uL; Eosinophils% 7.5 % (0-5); Hematocrit 40.9 % (40-54); Lymphocyte # 0.78 X10^3/ul (4.0); Lymphocyte % 20.2 % (19-41); Mean Corp Hgb Conc 31.8 g/dL (32-36); Mean Corpuscular Hgb 30.8 pg (27.0-32.0); Mean Corpuscular Volume 96.9 fL (80-94); Mean Platelet Vol. 9.3 fl (6.2-12.0); Monocyte# 0.45 X10^3/uL; Monocyte% 11.6 % (0-10); NRBC Flagged by Analyzer 0 % (0-5); Neutrophil # 2.31 X10^3/uL (2.7-7.7); Neutrophil % 59.7 % (47-70); Platelet Count 153 K/mm3 (150-450); RBC Distribution Width CV 14.3 % (11.6-14.6); RBC Distribution Width SD 50.9 fl (35.1-43.9); Red Blood Count 4.22 M/mm3 (4.6-6.2); White Blood Count 3.9 K/mm3 (4.4-11.0)
[2019-02-13 06:15] LABS: Anion Gap 7 (5-15); BUN 42 mg/dL (7-18); BUN/Creat Ratio 31.6 RATIO (10-20); Calcium,Total 8.4 mg/dL (8.5-10.1); Chloride 103 mmol/L (98-107); Creatinine, Serum 1.33 mg/dL (0.70-1.30); EST Glomerular Filtration Rate 55 mL/min (>60); Est Glom Filt Rate - Afr Amer 67 mL/min (>60); Glucose 132 mg/dL (74-106); Potassium 3.7 mmol/L (3.5-5.1); Sodium Level 142 mmol/L (136-145)
[2019-02-13] MEDS: Ipratropium/Albuterol Sulfate 3 ML AMPUL.NEB INHALATION (06:45)
[2019-02-13 06:55] LABS: Bedside Glucose 119 mg/dL (70-110)
[2019-02-13] MEDS: Metoprolol Tartrate 50 MG Tablet PO ×2 (09:23→21:43)
[2019-02-13] MEDS: 0.9% NaCl Peripheral Flush Adult/Peds IV (09:24)
[2019-02-13] MEDS: Furosemide 40 MG/4 ML Vial IV (09:24)
[2019-02-13] MEDS: Multivitamins,Therapeutic Tablet 1 TABLET PO (09:24)
[2019-02-13] MEDS: Losartan Potassium 50 MG Tablet PO (09:24)
[2019-02-13] MEDS: Clopidogrel Bisulfate 75 MG Tablet PO (09:24)
[2019-02-13] MEDS: Enoxaparin 80 MG/0.8 ML Syringe SC ×2 (09:24→21:43)
--- NOTE | 2019-02-13 10:17 | PCM.PN.HOSP ---
Patient Problems: Active and Suspected Problems (Last Updated 02/10/19 @ 14:28 by Mehran Lindsay DO) (HFpEF) heart failure with preserved ejection fraction (Acute) Subjective: Patient seen and examined. Complains of uneventful night because he was very worried about the cardiac cath this can have this morning. Patient states he was worried because he still unable to lie flat and states his been sleeping in a chair for the past 30 years due to shortness of breath and back pain and so does not know how he is going to lie flat for the cardiac cath. He is hoping that procedure will be done through the wrist so he will not have to lie on his back for a long period of to the procedure. He still complains of baseline shortness of breath and wheezing. He is not on oxygen at home. He denies any chest pain, palpitation, dizziness, diarrhea or vomiting. Review of systems is otherwise negative. LAbs and vitals reviewed. Vitals/I&O's: Vital Signs Temp Pulse Resp BP Pulse Ox 97.9 F 63 12 123/73 H 97 02/13/19 08:56 02/13/19 09:23 02/13/19 08:56 02/13/19 09:23 02/13/19 08:56 Oxygen Flow Rate (L/min) 2 Oxygen Delivery Method Nasal Cannula Weight: 249 lb 5.485 oz Body Mass Index (BMI) 41.6 Intake and Output for Last 24 Hours 02/11/19 02/12/19 02/13/19 23:59 23:59 23:59 Intake Total 680 / 740 240 / 420 180 / 180 Output Total 5200 / 5675 2550 / 3950 1400 / 1400 Balance -4520 / -4935 -2310 / -3530 -1220 / -1220 General: Alert, Oriented x3, Cooperative, No apparent distress HEENT: Atraumatic, PERRLA, EOMI, Normocephalic Oral: Moist Mucosa Neck: Supple, No JVD, Negative Carotid Bruits Lungs: Wheezes, - - decreased breath sounds bibasally, no crackles.; Moderate wheezing bilaterally. on 2L of oxygen Cardiovascular: Regular rate, Regular Rhythm, Normal S1, Normal S2, No murmurs Abdomen: Bowel Sounds Present, Soft, Non Tender, Non-Distended, No Hepato-splenomegaly Extremities: No clubbing, No cyanosis, Capillary Refill Less than 3 Seconds, - - mild 1+ pitting edema bilaterally. Both LEs wrapped in ISMAEL bandage Skin: No rashes, No breakdown Musculoskeletal: No Tenderness to Palpation of Joints or Extremities Lymphatic: No Cervical, Supraclavicular, or Inguinal Adenopathy Neurological: Cranial nerves II-XII grossly intact, Neuro grossly intact, Motor Exam 5/5 strength throughout Psych/Mental Status: Normal Affect, Appropriate, Alert and oriented to time, place, person, mood and affect Laboratory Results 02/11/19 05:15: Triglycerides 75, Cholesterol 106, LDL Cholesterol 47, VLDL Cholesterol 15, HDL Cholesterol 44 02/12/19 11:57: POC Glucose 118 H 02/12/19 16:34: POC Glucose 121 H 02/12/19 21:08: POC Glucose 125 H 02/13/19 05:20: WBC 3.9 L, RBC 4.22 L, Hgb 13.0, Hct 40.9, MCV 96.9 H, MCH 30.8, MCHC 31.8 L, RDW Std Deviation 50.9 H, RDW Coeff of [place] 14.3, Plt Count 153, MPV 9.3, Immature Gran % (Auto) 0.500, Neut % (Auto) 59.7, Lymph % (Auto) 20.2, [place] % (Auto) 11.6 H, Eos % (Auto) 7.5 H, Baso % (Auto) 0.5, Absolute Neuts (auto) 2.3, Absolute Lymphs (auto) 0.78 L, Nucleated RBC % 0 02/13/19 05:20: Sodium 142, Potassium 3.7, Chloride 103, Carbon Dioxide 32.0, Anion Gap 7, BUN 42 H, Creatinine 1.33 H, Estim Creat Clear Calc 42.80, Est GFR (MDRD) Af Amer 67, Est GFR (MDRD) Non-Af 55 L, BUN/Creatinine Ratio 31.6 H, Glucose 132 H, Calcium 8.4 L 02/13/19 06:30: POC Glucose 119 H Current Medications Acetaminophen (Tylenol) 650 mg PO Q6H PRN PRN PRN Reason: Mild pain 1-3/Temp > 100.7 F Bisacodyl (Dulcolax) 5 mg PO DAILY PRN PRN PRN Reason: Constipation Last Admin: 02/11/19 05:59 Dose: 5 mg Documented by: Clopidogrel Bisulfate (Plavix) 75 mg PO DAILY [facility] Last Admin: 02/13/19 09:24 Dose: 75 mg Documented by: Dextrose (D50w Syringe) 0 gm IV X1 PRN; Protocol PRN Reason: Hypoglycemia Enoxaparin Sodium (Lovenox) 80 mg SC Q12@0600,1800 [facility] Last Admin: 02/13/19 09:24 Dose: 80 mg Documented by: Furosemide (Lasix) 40 mg IV BIDLX [facility] Last Admin: 02/13/19 09:24 Dose: 40 mg Documented by: Glucagon () 1 mg IM .X1 PRN PRN Reason: Hypoglycemia Sodium Chloride () 1,000 mls @ 0 mls/hr IV .Q0M [facility] Insulin Human Lispro (Humalog Kwikpen (Bkc)) 0 unit SC ACHS [facility]; Protocol Last Admin: 02/13/19 06:35 Dose: Not Given Documented by: Losartan Potassium (Cozaar) 50 mg PO DAILY [facility] Last Admin: 02/13/19 09:24 Dose: 50 mg Documented by: Melatonin (Melatonin) 3 mg PO QHS PRN PRN PRN Reason: INSOMNIA Last Admin: 02/12/19 21:47 Dose: 3 mg Documented by: Metoprolol Tartrate (Lopressor (Beta Gilbert)) 50 mg PO BID [facility] Last Admin: 02/13/19 09:23 Dose: 50 mg Documented by: Multivitamins (Multivitamin) 1 tablet PO DAILY@0800 [facility] Last Admin: 02/13/19 09:24 Dose: 1 tablet Documented by: Nutritional Formula (Lactose Free) (Glucerna Shake) 60 ml PO 4X/DAY [facility] Last Admin: 02/13/19 07:56 Dose: Not Given Documented by: Ondansetron HCl (Zofran) 4 mg IV Q8H PRN PRN PRN Reason: NAUSEA/VOMITING Pravastatin Sodium (Pravachol) 80 mg PO QHS [facility] Last Admin: 02/12/19 21:20 Dose: 80 mg Documented by: Senna/Docusate Sodium (Senokot-S, Yokasta-Colace) 2 tablet PO BID PRN PRN PRN Reason: Constipation Sodium Chloride () 10 - 40 ml IV UD PRN PRN Reason: SALINE FLUSH Last Admin: 02/13/19 09:24 Dose: 10 ml Documented by: Medical Necessity - Tobacco Use Smoking Status: Former smoker Tobacco Use: Non-smoker Assessment/Plan All Active Problems (Last Updated 02/10/19 @ 14:28 by Mehran Lindsay DO) (HFpEF) heart failure with preserved ejection fraction (Acute) Decubitus ulcer of right buttock, stage 2 (Acute) Traumatic skin ulcer with fat layer exposed (Acute) Cellulitis of lower extremity (Acute) Nonhealing nonsurgical wound with fat layer exposed (Acute) 1. Acute on chronic HFpEF has known EF of 55% BNP was 989.8 on IV lasix 40mg bid; in cumulative negative balance by 9.4L since admission. restrict fluid to 1500cc daily. monitor intake output charge cardiology on board; for right and left heart cath today 2/ Pulmonary hypertension: RVSP couldnt be quantified on 2D echo; for right heart cath today 3. Chronic A. fib: Coumadin on hold. Currently on therapeutic Lovenox which was held this morning for cardiac cath. On metoprolol 4. Hypertension: On metoprolol and losartan. 5. Morbid obesity: BMI is 40.1. Vision recommended to have lifestyle changes. DVT prophylaxis: Therapeutic Lovenox Status: DNR CCA Code Visit Inpatient E&M: 51212 Subs Hosp L2
[2019-02-13] MEDS: Insulin Lispro 100 UNIT/ML INSULN.PEN SC (11:20)
[2019-02-13 11:35] LABS: Bedside Glucose 153 mg/dL (70-110)
--- NOTE | 2019-02-13 12:19 | PN.CARD_ITS ---
Subjectve: Patient seen and examined this morning. Patient very anxious about doing heart catheterization and laying down due to his back pain. Lower extremity edema has almost completely resolved. Catheterization aborted due to patient's concerns and inability to lay at a 60 degree angle. Objective: Vital Signs Temp Pulse Resp BP Pulse Ox 97.9 F 63 12 123/73 H 97 02/13/19 08:56 02/13/19 09:23 02/13/19 08:56 02/13/19 09:23 02/13/19 08:56 Oxygen Flow Rate (L/min) 2 Oxygen Delivery Method Nasal Cannula Weight: 249 lb 5.485 oz Body Mass Index (BMI) 41.6 Intake and Output for Last 24 Hours 02/11/19 02/12/19 02/13/19 23:59 23:59 23:59 Intake Total 680 / 740 240 / 420 420 / 420 Output Total 5200 / 5675 2550 / 3950 2325 / 2325 Balance -4520 / -4935 -2310 / -3530 -1905 / -1905 General: Awake, Alert, Oriented x 3 HEENT: PERRL, EOMI, Sclera Non Icteric Neck: Supple, Good ROM, No Lymph Node Enlargement Lungs: Clear to auscultation Cardiovascular: Regular Rhythm, Irregular Rhythm, Normal S1, Normal S2, No Murmurs, No Rubs, No Gallops Vascular: No Carotid Bruits, Normal Femoral Pulses, Normal Radial Pulses, Normal Dorsalis Pedal Pulse, Normal Posterior Tibial Pulses Abdomen: Bowel Sounds Present, Soft, Non Tender, No HSM, No Organomegaly Extremities: No Cyanosis, No Clubbing, No edema Neurological: No Focal Motor or Sensory Deficit 02/13/19 05:20: WBC 3.9 L, RBC 4.22 L, Hgb 13.0, Hct 40.9, MCV 96.9 H, MCH 30.8, MCHC 31.8 L, Plt Count 153, MPV 9.3, Immature Gran % (Auto) 0.500, Neut % (Auto) 59.7, Lymph % (Auto) 20.2, [place] % (Auto) 11.6 H, Eos % (Auto) 7.5 H, Baso % (Auto) 0.5, Absolute Neuts (auto) 2.3, Nucleated RBC % 0 02/13/19 05:20: Sodium 142, Potassium 3.7, Chloride 103, Carbon Dioxide 32.0, Anion Gap 7, BUN 42 H, Creatinine 1.33 H, Est GFR (MDRD) Af Amer 67, Est GFR (MDRD) Non-Af 55 L, BUN/Creatinine Ratio 31.6 H, Glucose 132 H, Calcium 8.4 L Rhythm: EKG: ECHO: Stress Test: Cardiac Cath: PCI: CT Surgery: Holter monitor: EPS: PPM: CXR: Chest CT Scan: Medical Necessity - Tobacco Use Smoking Status: Former smoker Tobacco Use: Non-smoker Assessment/Plan 1. Shortness of breath: Patient has known obstructive sleep apnea but is unable to tolerate his CPAP and has not been using it. He has had no echocardiogram since June 2017 but at that time his LV function was normal and his RVSP was estimated be 31 mmHg. Patient now has had progressively worsening shortness of breath, dyspnea on exertion, abdominal fullness, and worsening lower extremity edema. In addition he has chronic atrial fibrillation and has been taking his Coumadin however his INR is subtherapeutic today. Chest x-ray demonstrated possible bilateral pulmonary vascular redistribution and pulmonary edema. He appeared to gain some benefit from nebulizer therapy but still has some audible bilateral wheezing. Patient underwent repeat echocardiogram on 02/10/2019 which showed mild global LV dysfunction with an EF of approximately 50 to 55%, unable to quantitate RVSP. I would not recommend stress testing at this time as the patient obviously presents with at least right-sided heart failure. In addition I recommend Lasix IV 40 mg twice daily and attempt to remove 1 to 2 L of fluid per day. In addition I recommend holding his Coumadin therapy and switching him to full dose Lovenox therapy of 70 mg subcu twice daily. Once the patient is able to lay down flat, at least from a respiratory standpoint, as well as from a back pain standpoint, I recommend a left and right heart catheterization. Patient states that he is still not able to lay down flat due to back pain, and he will most likely require a wedge device for his catheterization. If he is unable to lay down flat, we can use a wedge device, and if he is unable to tolerate that, I would only pursue left heart catheterization plus/minus PCI if indicated. To that end, I recommend the patient be placed on baby aspirin 81 mg p.o. daily. He is ruled out for myocardial infarction. In addition recommending a 1500 cc fluid restriction as well as Cosme bandage wraps to his legs. Recommend holding on beta-blockers at this time until his congestive heart failure has been optimized. Would recommend loading him with Plavix 300 mg x 1 now followed by 75 mg a day for possible anticipated PCI if indicated. I will reassess tomorrow morning with the patient can undergo a left heart catheterization. He will most likely require pain medication for his back in order to tolerate the procedure. We will try Ativan this afternoon to determine if this takes away his anxiety and improve his ability to lay down at a recumbent angle. 2. Atrial fibrillation: The patient appears to have chronic persistent atrial fibrillation is been on Coumadin for a number of years although he is unsure why he is on Coumadin. He is unaware of his atrial fibrillation. It is unlikely the patient would have successful DC cardioversion without amiodarone assistance. Nonetheless, I believe the patient would benefit from normal sinus rhythm to improve his cardiac output. Recommend holding his Coumadin for upcoming left and right heart catheterization once medically optimized, and switching to temporary Lovenox 70 mg subcu twice daily in its place. I do not believe the patient would be a good candidate for atrial fibrillation ablation at this time. INR is 1.5. 3. Hyperlipidemia: Recommend obtaining a fasting lipid profile. 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 LDL is 87 and HDL is 44. 4. 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 He has audible wheezing on physical exam and seem to canales benefit to nebulizer therapy. The patient may have undiagnosed pulmonary disease that may benefit from full pulmonary function test once his luminary status has been optimized. Recommend considering pulmonary consultation. 5. Thank you very much for the opportunity to participate in the cardiac care of your patient. We will plan for left heart catheterization tomorrow morning. Code Visit Inpatient E&M: 23931 Subs Hosp L2
[2019-02-13] MEDS: Glucerna Shake 120 ML LIQUID 60 ML PO ×3 (14:24→21:45)
[2019-02-13] MEDS: Furosemide 80 MG Tablet PO (16:43)
[2019-02-13] MEDS: LORazepam 0.5 MG Tablet PO ×2 (16:47→23:16)
[2019-02-13 17:01] LABS: Bedside Glucose 147 mg/dL (70-110)
--- NOTE | 2019-02-13 18:18 | NURSING ---
this rn has reviewed and agrees with all charting completed by Fadi Brown student nurse
[2019-02-13] MEDS: Pravastatin 80 MG Tablet PO (21:43)
[2019-02-13 23:40] LABS: Bedside Glucose 123 mg/dL (70-110)
[2019-02-14] VITALS (22 sets, daily range): BP systolic 106–152; BP diastolic 54–69; PULSE 51–82; RESP 14–18; TEMP 36.6–37.1; O2SAT 93–98
--- NOTE | 2019-02-14 05:49 | EKG12_ITS ---
Test Reason : AM EKG Blood Pressure : / mmHG Vent. Rate : 060 BPM Atrial Rate : 060 BPM P-R Int : 218 ms QRS Dur : 100 ms QT Int : 478 ms P-R-T Axes : 057 047 044 degrees QTc Int : 478 ms Sinus rhythm with 1st degree A-V block with frequent Premature ventricular complexes Otherwise normal ECG When compared with ECG of 11-FEB-2019 05:11, MANUAL COMPARISON REQUIRED, DATA IS UNCONFIRMED Confirmed by CARLOS GARCIA ([id number]), multimedia editor JOSE LUIS PEARCE ([id number]) on 02/21/2019 1:10:52 PM Referred By: Mehran Lindsay Confirmed By:CARLOS GARCIA
[2019-02-14 06:06] LABS: Absolute Lymphocyte Count 0.93 X10^3/uL (0.83-4.51); Absolute Neutrophil Count 2.2 X10^3/uL (2.0-7.7); Basophil# 0.03 X10^3/uL; Basophil% 0.8 % (0-1); Eosinophils% 7.6 % (0-5); Hematocrit 41.8 % (40-54); Hemoglobin 13.5 g/dL (13.0-16.5); Lymphocyte # 0.93 X10^3/ul (4.0); Lymphocyte % 23.5 % (19-41); Mean Corp Hgb Conc 32.3 g/dL (32-36); Mean Corpuscular Hgb 31.3 pg (27.0-32.0); Mean Platelet Vol. 9.3 fl (6.2-12.0); Monocyte# 0.48 X10^3/uL; Monocyte% 12.2 % (0-10); NRBC Flagged by Analyzer 0 % (0-5); Neutrophil % 55.6 % (47-70); Platelet Count 153 K/mm3 (150-450); RBC Distribution Width CV 14.3 % (11.6-14.6); RBC Distribution Width SD 51.5 fl (35.1-43.9); Red Blood Count 4.31 M/mm3 (4.6-6.2)
[2019-02-14] MEDS: Clopidogrel Bisulfate 75 MG Tablet PO ×2 (06:20)
[2019-02-14] MEDS: Metoprolol Tartrate 50 MG Tablet PO ×2 (06:20→21:46)
[2019-02-14 06:28] LABS: Anion Gap 6 (5-15); BUN 41 mg/dL (7-18); BUN/Creat Ratio 30.8 RATIO (10-20); Calcium,Total 8.8 mg/dL (8.5-10.1); Chloride 104 mmol/L (98-107); Creatinine, Serum 1.33 mg/dL (0.70-1.30); EST Glomerular Filtration Rate 55 mL/min (>60); Est Glom Filt Rate - Afr Amer 67 mL/min (>60); Glucose 140 mg/dL (74-106); Potassium 4.2 mmol/L (3.5-5.1); Sodium Level 143 mmol/L (136-145)
[2019-02-14 06:31] LABS: Bedside Glucose 128 mg/dL (70-110)
[2019-02-14] MEDS: LORazepam 0.5 MG Tablet PO (06:33)
[2019-02-14] MEDS: DiphenhydrAMINE 25 MG Capsule 50 MG PO (06:55)
[2019-02-14] MEDS: 0.9% Normal Saline 1,000 ML 15 ML IV (06:55)
--- NOTE | 2019-02-14 07:00 | NURSING ---
Call to laboratory mechanic helper, gave report on pt. Benedryll given, and MEDICAL TECHNOLOGIST PRN transported down to vascular. LAVELLE Gill
[2019-02-14 08:40] LABS: Blood Gas Specimen Type VEN; VBG BASE EXCESS 4 mmol/L (-1.0-3.5); VBG Bicarbonate 29 mmol/L (22-26); VBG Oxygen Content 31 mmol/L (23-33); VBG PO2 39 mmHg (25-40); VBG SO2 71 % (50-70); VBG pCO2 50.9 mmHg (41-51); VBG pH 7.37 (7.32-7.42)
[2019-02-14 08:40] LABS: Base Excess 3 mmol/L (-2 to +2); Bicarbonate 28.2 mmol/L (22-26); Blood Gas Specimen Type ART; PO2 65 mmHG (75-100); SO2 92 % (95-99); Total Carbon Dioxide 30 mmol/L; pCO2 48.2 mmHg (35-45); pH 7.38 (7.35-7.45)
[2019-02-14 08:40] LABS: Blood Gas Specimen Type VEN; VBG BASE EXCESS 3 mmol/L (-1.0-3.5); VBG Bicarbonate 28 mmol/L (22-26); VBG Oxygen Content 30 mmol/L (23-33); VBG PO2 38 mmHg (25-40); VBG SO2 69 % (50-70); VBG pCO2 50.3 mmHg (41-51); VBG pH 7.36 (7.32-7.42)
--- NOTE | 2019-02-14 08:40 | CL.D_ITS ---
Patient Name: JOSE ANGEL BLANCHARD Study Date: 02/14/2019 Performing: Perico Mello MD Ht: 66.92 inches 170 cm : 1940 Wt: 244.71 lbs 111 kg Age: 78 Gender: male BSA: 2.2 PROCEDURE(S) PERFORMED LP90-NXQ/LHC/COR/LV CLINICAL PROFILE AND INDICATIONS Indications: Suspected CAD, Cardiac Arrythmia Heart Failure: NYHA Class: 2, Newly Diagnosed: Yes, Heart Failure Type: Diastolic Stress/Imaging Stress/Image Study Performed: No Angina Classification Anginal Classification w/in 2 Weeks: No symptoms CAD Presentations: Other: Dyspnea on exertion, severe right sided heart failure. Comorbidities/Risk Factors: Hypertension Dyslipidemia Diabetes Mellitus: Diabetes Therapy: Diet CONCLUSIONS Normal Left Ventricular systolic function LVEF: by LV gram 65 % Elevated Left Ventricular End Diastolic Pressure Non obstructive coronary arteries The patient has pulmonary hypertension which is moderate. RECOMMENDATIONS Management as per referring Histopathologist d/c plavix, restart coumadin for PAF and pulmonary HTN, increase cozaar to 50mg po bid. Manual sheath removal due to severe aorto iliac tortuosity and previous R hip replacement. DESCRIPTION OF PROCEDURE The patient arrived to the procedure lab. The risks and benefits of the procedure as well as a full d escription of our services here and current unavailability of surgical backup were fully explained to the patient and/or their significant other prior to the catheterization. The Timeout was completed, verifying the correct patient and procedure. The patient's procedural site was prepped and draped in the usual fashion. Local anesthetic was given subcutaneously to right groin region with Lidocaine 2%. Using a modified Seldinger technique, arterial access was obtained via the right femoral artery, a 4 Fr 45cm sheath was inserted Venous access was obtained via the right femoral vein, a 7Fr sheath was i nserted. A 7Fr thermal dilution catheter was inserted and right heart pressures were recorded, it was then advanced to PA position for cardiac outputs. Thermal dilution cardiac outputs were then recorde d. O2 saturations were then obtained. The Thermal dilution catheter was then removed. Left Coronary Artery selective angiography was performed in multiple views using a 4 Fr. JL5 catheter. Rig ht Coronary Artery selective angiography was then performed in multiple views using a 4 Fr. AR MOD 2 catheter.The arterial sheath was pulled and manual compression applied until hemostasis is achieved.. The venous sheath was then pulled and manual compression applied until hemostasis achieved CORONARY ANGIOGRAPHY DOMINANCE: Right Dominant LEFT HEART ASSESSMENT Left Ventricular Ejection Fraction: by LV Gram 65 % Normal LV wall motion Normal Left Ventricular systolic function LVEDP: 16 mmHg Elevated Left Ventricular End Diastolic Pressure RIGHT HEART ASSESSMENT Thermal CO: 6.72 Thermal CI: 3.05 Damian CO: 6.93 Damian CI: 3.15 PW: 18 PA: 37/13 19 RV: 42/1 7 RA: 8/7 5 PVR: 12 SVR: 1071 Mitral Valve Area: >3.50 Mitral Valve index: 1.59 Mitral Valve Mean Gradient: 5.6 Right Heart pressures - elevated Pulmonary Hypertension Moderate LEFT MAIN: Angiographically normal LEFT ANTERIOR DESCENDING ARTERY: Non-obstructive CIRCUMFLEX ARTERY: Mild luminal irregularities less than 30% RIGHT CORONARY ARTERY: Mild luminal irregularities less than 30% COMPLICATIONS No Complications PROCEDURE MEDICATIONS Versed 1 mg IV Oxygen: 2 L/min via nasal cannula Oxygen: Discontinued Oxygen: 2 L/min via simple mask SUMMARY OF HEMODYNAMIC DATA Time AIR REST ECG 07:37:33 RA 8/7 (5) SV 08:06:02 RV 42/1, 7 08:06:16 PW (18) PV 08:07:26 PA 37/13 (19) PA 08:07:42 LV 144/4, 14 08:12:44 LV 143/7, 16 08:12:53 LV 153/5, 18 08:13:17 PW 54/51 (43) 08:13:17 LV 151/1, 11 08:13:46 PW 18/27 (15) 08:13:46 LV 154/4, 13 08:13:51 PW 15/20 (13) 08:13:51 LV 162/1, 14 08:14:23 RV 43/5, 10 08:14:23 LV 145/6, 13 08:14:29 RV 48/6, 11 08:14:29 LV 150/-3, 6 08:16:03 LVp 148/5, 25 08:16:09 AOp 153/66 (95) 08:16:14 AO 128/65 (95) SA 08:18:22 Valve Area (c P-P/ms Time AIR REST Mitral 3.50 5.6 mn/514 ms 08:13:51 Other 3.50 1.9 mn/154 ms 08:14:29 Type SV CO (l/m) CI (l/m/ HR Time AIR REST Thermal 143.00 6.72 3.05 47 07:37:33 Damian 147.40 6.93 3.15 47 07:37:33 Label % O2 Pres/Loc Time AIR REST PA 69 PA 08:30:05 AO 92 PV 08:30:11 Signed By Perico Mello MD On 02/14/2019 08:40:11 Perico Mello MD
--- NOTE | 2019-02-14 10:30 | PN_ITS ---
Patient Problems: Active and Suspected Problems (Last Updated 02/10/19 @ 14:28 by Mehran Lindsay DO) (HFpEF) heart failure with preserved ejection fraction (Acute) Subjective: Patient seen and examined. He had cardiac cath today and tolerated procedure well. He has no complaints after procedure. Findings of cath for normal left ve ntricular systolic function with EF by LV gram of 65% and an elevated left ventricular end-diastolic pressure with nonobstructive coronary arteries. Vitals/I&O's: Vital Signs Temp Pulse Resp BP Pulse Ox 98.4 F 51 L 16 144/63 H 98 02/14/19 09:00 02/14/19 10:00 02/14/19 10:00 02/14/19 10:00 02/14/19 10:00 Oxygen Flow Rate (L/min) 2 Oxygen Delivery Method Room Air Weight: 244 lb 14.937 oz Body Mass Index (BMI) 41.6 Intake and Output for Last 24 Hours 02/12/19 02/13/19 02/14/19 23:59 23:59 23:59 Intake Total 240 / 420 890 / 890 34.5 / 34.5 Output Total 2550 / 3950 4075 / 4075 175 / 175 Balance -2310 / -3530 -3185 / -3185 -140.5 / -140.5 General: Alert, Oriented x3, Cooperative, No apparent distress HEENT: Atraumatic, PERRLA, EOMI, Normocephalic Oral: Moist Mucosa Neck: Supple, No JVD, Negative Carotid Bruits Lungs: Wheezes, - - decreased breath sounds bibasally, no crackles.; Moderate wheezing bilaterally. on 2L of oxygen Cardiovascular: Regular rate, Regular Rhythm, Normal S1, Normal S2, No murmurs Abdomen: Bowel Sounds Present, Soft, Non Tender, Non-Distended, No Hepato- splenomegaly Extremities: No clubbing, No cyanosis, Capillary Refill Less than 3 Seconds, - - mild 1+ pitting edema bilaterally. Both LEs wrapped in ISMAEL bandage Skin: No rashes, No breakdown Musculoskeletal: No Tenderness to Palpation of Joints or Extremities Lymphatic: No Cervical, Supraclavicular, or Inguinal Adenopathy Neurological: Cranial nerves II-XII grossly intact, Neuro grossly intact, Motor Exam 5/5 strength throughout Psych/Mental Status: Normal Affect, Appropriate, Alert and oriented to time, place, person, mood and affect Laboratory Results 02/13/19 11:18: POC Glucose 153 H 02/13/19 16:45: POC Glucose 147 H 02/13/19 21:35: POC Glucose 123 H 02/14/19 05:27: WBC 4.0 L, RBC 4.31 L, Hgb 13.5, Hct 41.8, MCV 97.0 H, MCH 31.3, MCHC 32.3, RDW Std Deviation 51.5 H, RDW Coeff of Porter 14.3, Plt Count 153, MPV 9.3, Immature Gran % (Auto) 0.300, Neut % (Auto) 55.6, Lymph % (Auto) 23.5, [place] % (Auto) 12.2 H, Eos % (Auto) 7.6 H, Baso % (Auto) 0.8, Absolute Neuts (auto) 2.2, Absolute Lymphs (auto) 0.93, Nucleated RBC % 0 02/14/19 05:27: Sodium 143, Potassium 4.2, Chloride 104, Carbon Dioxide 33.0 H, Anion Gap 6, BUN 41 H, Creatinine 1.33 H, Estim Creat Clear Calc 42.80, Est GFR (MDRD) Af Amer 67, Est GFR (MDRD) Non-Af 55 L, BUN/Creatinine Ratio 30.8 H, Glucose 140 H, Calcium 8.8 02/14/19 06:19: POC Glucose 128 H 02/14/19 08:11: Specimen Type PAOLA, VBG pH 7.37, VBG pO2 39, VBG O2 Sat (Calc) 71 H, VBG O2 Content 31, VBG Base Excess 4 H, POC Mix VBG pCO2 Pt Tmp 50.9 02/14/19 08:14: Specimen Type PAOLA, VBG pH 7.36, VBG pO2 38, VBG O2 Sat (Calc) 69, VBG O2 Content 30, VBG Base Excess 3, POC Mix VBG pCO2 Pt Tmp 50.3 02/14/19 08:27: Specimen Type ART, pH 7.38, Bicarbonate Actual 28.2 H, POC Total CO2 30, Base Excess 3 H, O2 Saturation 92 L, ABG pCO2 48.2 H, ABG pO2 65 L Current Medications Acetaminophen (Tylenol) 650 mg PO Q6H PRN PRN PRN Reason: Mild pain 1-3/Temp > 100.7 F Aspirin (Aspirin, Baby) 81 mg PO DAILY@0800 [facility] Bisacodyl (Dulcolax) 5 mg PO DAILY PRN PRN PRN Reason: Constipation Last Admin: 02/11/19 05:59 Dose: 5 mg Documented by: Dextrose (D50w Syringe) 0 gm IV X1 PRN; Protocol PRN Reason: Hypoglycemia Furosemide (Lasix) 80 mg PO BID@1000,1800 [facility] Last Admin: 02/13/19 16:43 Dose: 80 mg Documented by: Glucagon () 1 mg IM .X1 PRN PRN Reason: Hypoglycemia Heparin Sodium (Beef Lung) (Heparin 500 Unit/5 Ml (100/Ml)) 500 unit IV UD PRN PRN Reason: HEPARIN FLUSH Sodium Chloride () 1,000 mls @ 0 mls/hr IV .Q0M [facility] Last Infusion: 02/14/19 09:13 Dose: 0 mls/hr Documented by: Insulin Human Lispro (Humalog Kwikpen (Bkc)) 0 unit SC ACHS [facility]; Protocol Last Admin: 02/14/19 06:30 Dose: Not Given Documented by: Labetalol HCl (Trandate) 5 mg IV X1 PRN PRN Reason: SBP > 160 prior to sheath pull Stop: 02/16/19 08:29 Lorazepam (Ativan) 0.5 mg PO Q6H PRN PRN PRN Reason: ANXIETY Last Admin: 02/14/19 06:33 Dose: 0.5 mg Documented by: Losartan Potassium (Cozaar) 50 mg PO BID [facility] Melatonin (Melatonin) 3 mg PO QHS PRN PRN PRN Reason: INSOMNIA Last Admin: 02/12/19 21:47 Dose: 3 mg Documented by: Metoprolol Tartrate (Lopressor (Beta Gilbert)) 50 mg PO BID [facility] Last Admin: 02/14/19 06:20 Dose: 50 mg Documented by: Multivitamins (Multivitamin) 1 tablet PO DAILY@0800 [facility] Last Admin: 02/13/19 09:24 Dose: 1 tablet Documented by: Nutritional Formula (Lactose Free) (Glucerna Shake) 60 ml PO 4X/DAY [facility] Last Admin: 02/13/19 21:45 Dose: 60 ml Documented by: Ondansetron HCl (Zofran) 4 mg IV Q8H PRN PRN PRN Reason: NAUSEA/VOMITING Pravastatin Sodium (Pravachol) 80 mg PO QHS JANEL Last Admin: 02/13/19 21:43 Dose: 80 mg Documented by: Senna/Docusate Sodium (Senokot-S, Yokasta-Colace) 2 tablet PO BID PRN PRN PRN Reason: Constipation Sodium Chloride () 10 - 40 ml IV UD PRN PRN Reason: SALINE FLUSH Last Admin: 02/13/19 09:24 Dose: 10 ml Documented by: Medical Necessity - Tobacco Use Smoking Status: Former smoker Tobacco Use: Non-smoker Assessment/Plan All Active Problems (Last Updated 02/10/19 @ 14:28 by Mehran Lindsay DO) (HFpEF) heart failure with preserved ejection fraction (Acute) Decubitus ulcer of right buttock, stage 2 (Acute) Traumatic skin ulcer with fat layer exposed (Acute) Cellulitis of lower extremity (Acute) Nonhealing nonsurgical wound with fat layer exposed (Acute) 1. Acute on chronic HFpEF * has known EF of 55% * BNP was 989.8 * on IV lasix 40mg bid; in cumulative negative balance by 11.55L since admission. * restrict fluid to 1500cc daily. * monitor intake output charge * cardiology on board; cardiac cath today showed EF by LV gram of 65%, with normal LV systolic function, and elevated LV end diastolic pressure, and nonobstructive coronary arteries, and moderate pulmonary hypertension * plan is to stop plavix and resume coumadin. cozaar increased to 50mg bid. * 2/ Pulmonary hypertension: RVSP couldnt be quantified on 2D echo; echo findings and management as under 1. 3. Chronic A. fib: Coumadin on hold. to resume coumadin after cath. continue metoprolol 4. Hypertension: On metoprolol and losartan. 5. Morbid obesity: BMI is 40.1. counselled have lifestyle changes. DVT prophylaxis: Therapeutic Lovenox. Stop lovenox and resume coumadin today Status: DNR CCA Code Visit Inpatient E&M: 07744 Subs Hosp L3
[2019-02-14] MEDS: Multivitamins,Therapeutic Tablet 1 TABLET PO (10:35)
[2019-02-14] MEDS: Losartan Potassium 50 MG Tablet PO ×2 (10:35→21:46)
[2019-02-14] MEDS: Furosemide 80 MG Tablet PO ×2 (10:36→16:51)
[2019-02-14] MEDS: Acetaminophen 325 MG Tablet 650 MG PO (10:52)
[2019-02-14 11:43] LABS: International Normalized Ratio 1.1; Prothrombin Time (Protime)PT. 14.1 SECONDS (11.7-14.9)
--- NOTE | 2019-02-14 12:49 | NURSING ---
this RN has reviewed and agrees with all charting completed by Fadi Brown student nurse
--- NOTE | 2019-02-14 13:17 | NURSING ---
Patient walked halls with student nurse and Ramya alexander. Patient tolerated well. Cath site c/d/i. Pt now resting in chair, at bedside.
[2019-02-14] MEDS: Glucerna Shake 120 ML LIQUID 60 ML PO ×3 (13:22→21:46)
[2019-02-14 13:31] LABS: Bedside Glucose 119 mg/dL (70-110)
[2019-02-14] MEDS: Insulin Lispro 100 UNIT/ML INSULN.PEN SC (16:50)
[2019-02-14 17:05] LABS: Bedside Glucose 169 mg/dL (70-110)
[2019-02-14] MEDS: Pravastatin 80 MG Tablet PO (21:46)
[2019-02-14 21:56] LABS: Bedside Glucose 117 mg/dL (70-110)
[2019-02-15] VITALS (10 sets, daily range): BP systolic 119–130; BP diastolic 53–66; PULSE 59–77; RESP 16–17; TEMP 36.6–36.9; O2SAT 91–95
--- NOTE | 2019-02-15 05:55 | EKG12_ITS ---
Test Reason : AM EKG Blood Pressure : / mmHG Vent. Rate : 059 BPM Atrial Rate : 059 BPM P-R Int : 000 ms QRS Dur : 100 ms QT Int : 448 ms P-R-T Axes : 000 058 064 degrees QTc Int : 443 ms Junctional rhythm with frequent Premature ventricular complexes with ventricular escape complexes Nonspecific T wave abnormality Abnormal ECG When compared with ECG of 14-FEB-2019 05:40, MANUAL COMPARISON REQUIRED, DATA IS UNCONFIRMED Confirmed by CARLOS GARCIA ([id number]), map editor JOSE LUIS PEARCE ([id number]) on 02/21/2019 1:12:00 PM Referred By: Mehran Lindsay Confirmed By:CARLOS GARCIA
[2019-02-15 06:22] LABS: Absolute Lymphocyte Count 1.03 X10^3/uL (0.83-4.51); Absolute Neutrophil Count 3.4 X10^3/uL (2.0-7.7); Basophil# 0.03 X10^3/uL; Basophil% 0.6 % (0-1); Eosinophil# 0.38 X10^3/uL; Eosinophils% 7.1 % (0-5); Hematocrit 41.4 % (40-54); Hemoglobin 13.1 g/dL (13.0-16.5); Lymphocyte # 1.03 X10^3/ul (4.0); Lymphocyte % 19.1 % (19-41); Mean Corp Hgb Conc 31.6 g/dL (32-36); Mean Corpuscular Hgb 30.4 pg (27.0-32.0); Mean Corpuscular Volume 96.1 fL (80-94); Mean Platelet Vol. 9.3 fl (6.2-12.0); Monocyte# 0.49 X10^3/uL; Monocyte% 9.1 % (0-10); NRBC Flagged by Analyzer 0 % (0-5); Neutrophil # 3.44 X10^3/uL (2.7-7.7); Neutrophil % 63.9 % (47-70); Platelet Count 163 K/mm3 (150-450); RBC Distribution Width CV 14.5 % (11.6-14.6); RBC Distribution Width SD 50.9 fl (35.1-43.9); Red Blood Count 4.31 M/mm3 (4.6-6.2); White Blood Count 5.4 K/mm3 (4.4-11.0)
[2019-02-15 06:30] LABS: Bedside Glucose 141 mg/dL (70-110)
[2019-02-15 06:31] LABS: International Normalized Ratio 1.1; Prothrombin Time (Protime)PT. 13.9 SECONDS (11.7-14.9)
[2019-02-15 06:43] LABS: Anion Gap 3 (5-15); BUN 39 mg/dL (7-18); BUN/Creat Ratio 27.9 RATIO (10-20); Calcium,Total 8.9 mg/dL (8.5-10.1); Chloride 105 mmol/L (98-107); EST Glomerular Filtration Rate 52 mL/min (>60); Est Glom Filt Rate - Afr Amer 63 mL/min (>60); Estimated Creatinine Clearance 40.66 ml/min; Glucose 148 mg/dL (74-106); Sodium Level 140 mmol/L (136-145)
[2019-02-15] MEDS: Losartan Potassium 50 MG Tablet PO (09:42)
[2019-02-15] MEDS: Metoprolol Tartrate 50 MG Tablet PO (09:42)
[2019-02-15] MEDS: Aspirin 81 MG TAB.CHEW PO (09:43)
[2019-02-15] MEDS: Furosemide 80 MG Tablet PO (09:43)
[2019-02-15] MEDS: Glucerna Shake 120 ML LIQUID 60 ML PO ×2 (09:43→12:59)
[2019-02-15] MEDS: Multivitamins,Therapeutic Tablet 1 TABLET PO (09:43)
[2019-02-15 09:52] LABS: Magnesium 2.1 mg/dL (1.6-2.6)
--- NOTE | 2019-02-15 11:01 | PCM.PN.BLA ---
Progress Note Patient is scheduled for a post hospital follow-up with Dr. Mello on 03/17/2019 at 10:15.
--- NOTE | 2019-02-15 11:51 | DCINST_ITS ---
- Discharge Diagnoses Current Active Problems: Current Active and Chronic Problems (Last Updated 02/10/19 @ 14:28 by Mehran Lindsay DO) History of right and left heart catheterization (Chronic 02/14/19) Normal Left Ventricular systolic function; LVEF: by LV gram 65 %; Elevated Left Ventricular End Diastolic Pressure; Non obstructive coronary arteries; The patient has pulmonary hypertension which is moderate. (HFpEF) heart failure with preserved ejection fraction (Acute) Afib (Chronic) You will use the following diet at home:: Cardiac Your food should be the consistency of: Regular Your liquids should be the consistency of: Regular/Thin Discharge Activity: Return to Normal Activity Weight Bearing Status: Weight bearing as tolerated Instructions: What Is Heart Failure?, Heart Failure: Warning Signs of a Flare- Up Additional Instructions: to have repeat INR in 2 days; INR goal is 2-3 Allergies/Adverse Reactions: Allergies naproxen [From Naprosyn] Allergy (Unknown, Verified 02/10/19 15:07) Hives codeine Allergy (Verified 02/10/19 15:07) Hives gabapentin Allergy (Verified 02/10/19 10:51) Hives hydrocodone [From Vicodin] Allergy (Verified 02/10/19 15:07) Hives levofloxacin [From Levaquin] Allergy (Verified 02/10/19 15:07) Hives lisinopril Allergy (Verified 02/10/19 10:51) Hives morphine Allergy (Verified 02/14/19 11:16) Hives sertraline [From Zoloft] Allergy (Verified 02/10/19 15:07) Hives simvastatin [From Zocor] Allergy (Verified 02/10/19 10:52) Hives sulfamethoxazole Allergy (Verified 02/10/19 15:07) Hives Medications to take at Discharge Metoprolol Tartrate [Lopressor (beta filiberto)] 50 mg PO BID 05/20/18 Pravastatin [Pravachol] 80 mg PO QHS 05/20/18 metFORMIN HCl [Glucophage] 500 mg PO BIDCM 05/20/18 Multivitamin [Multiple Vitamins] 1 ea PO DAILY 08/19/18 Warfarin Sodium [Coumadin] 1 mg PO DAILY 02/10/19 Warfarin Sodium [Coumadin] 5 mg PO DAILY 02/10/19 Amiodarone HCl [Cordarone] 200 mg PO UD #60 tab 02/15/19 Furosemide [Lasix] 80 mg PO BID@1000,1800 #60 tab 02/15/19 Losartan Potassium [Cozaar] 50 mg PO BID #60 tab 02/15/19 The following prescriptions were given: Amiodarone HCl [Cordarone] 200 mg PO UD #60 tab Transmission Status: Pending to [facility] Losartan Potassium [Cozaar] 50 mg PO BID #60 tab Transmission Status: Pending to [facility] 181 Furosemide [Lasix] 80 mg PO BID@1000,1800 #60 tab Transmission Status: Pending to [id number] Primary Care Physician: Chiki Brooks MD [Primary Care Provider] - Please follow up with your Primary Care Physician in: one week Test Results: Test results from this visit will be discussed in further detail at your follow- up appointment, if applicable. Please Follow Up With: Perico Mello MD When: 1-2 weeks; call office within one week for an appointment Proposed Discharge Date: 02/15/19
--- NOTE | 2019-02-15 11:53 | PCM.DC.SUM ---
Discharge Date and Diagnosis - Problem List Patient Problems: Active and Suspected Problems (Last Updated 02/10/19 @ 14:28 by Mehran Lindsay DO) (HFpEF) heart failure with preserved ejection fraction (Acute) Date of Admission: 02/10/19 Date of Discharge: 02/15/19 - Primary Discharge Diagnosis Active and Suspected Problems (Last Updated 02/10/19 @ 14:28 by Mehran Lindsay DO) acute(HFpEF) heart failure with preserved ejection fraction (Acute) - Secondary Discharge Diagnosis Chronic Problems (Last Updated 02/10/19 @ 14:28 by Mehran Lindsay DO) History of right and left heart catheterization (Chronic 02/14/19) Normal Left Ventricular systolic function; LVEF: by LV gram 65 %; Elevated Left Ventricular End Diastolic Pressure; Non obstructive coronary arteries; The patient has pulmonary hypertension which is moderate. 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 Electronically Signed: iKel Romero, at 12:20 EDT , Service support , cardiology- DR Mello Operations: None Procedures: 2-D Echocardiogram, Cardiac catheterization Summary of Care Provided: The patient is a 78 year old M with a past medical history as listed. He was admitted through the ED on 02/10/2019 with a complaint of shortness of breath which had been going on for a few months but gradually got worse. He also had an associated cough productive of yellowish sputum. On admission in the ED was noted to be hypoxic and breathing around 85%. Chest x-ray was consistent with vascular congestion and his BNP was around 8000. He also admitted to lower extremity edema but stated this was chronic. On admission, he was noted to be in A. fib though he denied any history of A. fib; review of his medical history shows that A. fib had been listed in his medication history previously and patient was also on Coumadin. EF on admission from echo done in June 2017 was 65%. EKG showed no acute ST changes and troponins were negative. Patient was admitted and managed for new onset acute heart failure with preserved ejection fraction. He was started on diuresis with IV Lasix. He was started on oxygen to maintain saturation above 90%. Cardiology was consulted. Repeat 2D echo done during this admission showed EF of 55%. Coumadin was held and he was started on therapeutic Lovenox. He had cardiac cath on 02/14/2019 which showed EF of 65% and elevated left ventricular end-diastolic pressure as well as nonobstructive coronary arteries and moderate pulmonary hypertension. Pulmonary artery pressure by right heart cath was 37/13. Patient's Cozaar was increased to 50 mg twice daily. Patient remained stable. However on day of discharge 02/15/2019 he was noted to have had a 10 beat run of V. tach. This was discussed with cardiology. Potassium and magnesium were within normal limits. Decision was made to start patient on oral amiodarone. He was started on p.o. amiodarone 400 mg twice daily to take for 5 days with a stop date of 02/19/2019. After that he was to continue with p.o. amiodarone 200 mg daily. He is to follow-up with his primary care doctor and cardiology. Patient seen and examined prior to discharge. He felt well and had no complaints. He had been weaned off of oxygen and ambulatory pulse ox did not qualify him for home oxygen. Review of systems was otherwise negative. Labs and vitals reviewed. Home medications reviewed and reconciled. o/e: Vital Signs Height 5 ft 7 in Weight: 246 lb 0.574 oz Weight in Pounds 246.0 lbs Pulse Ox [AMBULATING on Room 93 Air] Pulse Ox [At REST on Room Air] 96 Pulse Ox 91 Temperature 97.9 F Pulse Rate 64 Respiratory Rate 16 Blood Pressure 119/62 Blood Pressure Position Sitting [] General: Alert, Oriented x3, Cooperative, No apparent distress HEENT: Atraumatic, PERRLA, EOMI, Normocephalic Oral: Moist Mucosa Neck: Supple, No JVD, Negative Carotid Bruits Lungs: Wheezes, - - decreased breath sounds bibasally, no crackles.; Moderate wheezing bilaterally. on 2L of oxygen Cardiovascular: Regular rate, Regular Rhythm, Normal S1, Normal S2, No murmurs Abdomen: Bowel Sounds Present, Soft, Non Tender, Non-Distended, No Hepato-splenomegaly Extremities: No clubbing, No cyanosis, Capillary Refill Less than 3 Seconds, - -no edema Skin: No rashes, No breakdown Musculoskeletal: No Tenderness to Palpation of Joints or Extremities Lymphatic: No Cervical, Supraclavicular, or Inguinal Adenopathy Neurological: Cranial nerves II-XII grossly intact, Neuro grossly intact, Motor Exam 5/5 strength throughout Psych/Mental Status: Normal Affect, Appropriate, Alert and oriented to time, place, person, mood and affect Patient was also discharged on p.o. Lasix, metoprolol and losartan. His Coumadin was resumed at 6 mg daily. INR on day of discharge was 1.1. He was given Coumadin 10 mg on day of discharge and is to follow-up with his PCP for repeat INR check in 2 days time, with target INR of 2-3. Patient Problems: Active and Suspected Problems (Last Updated 02/10/19 @ 14:28 by Mehran Lindsay DO) (HFpEF) heart failure with preserved ejection fraction (Acute) - Physical Exam Vital Signs Temp Pulse Resp BP Pulse Ox 98.5 F 77 17 130/66 H 92 02/15/19 08:24 02/15/19 09:42 02/15/19 10:37 02/15/19 08:24 02/15/19 08:24 Oxygen Flow Rate (L/min) 2 Oxygen Delivery Method Room Air Weight: 246 lb 0.574 oz Body Mass Index (BMI) 41.6 Intake and Output for Last 24 Hours 02/13/19 02/14/19 02/15/19 23:59 23:59 23:59 Intake Total 890 / 890 909.5 / 909.5 0 / 0 Output Total 4075 / 4075 1969 / 1969 275 / 275 Balance -3185 / -3185 -1060.5 / -1060.5 -275 / -275 Laboratory Tests Past 24 Hrs 02/15/19 02/15/19 02/15/19 05:55 05:55 06:00 WBC 5.4 RBC 4.31 L Hgb 13.1 Hct 41.4 MCV 96.1 H MCH 30.4 MCHC 31.6 L RDW Std Deviation 50.9 H RDW Coeff of Porter 14.5 Plt Count 163 MPV 9.3 Immature Gran % (Auto) 0.200 Neut % (Auto) 63.9 Lymph % (Auto) 19.1 [place] % (Auto) 9.1 Eos % (Auto) 7.1 H Baso % (Auto) 0.6 Absolute Neuts (auto) 3.4 Absolute Lymphs (auto) 1.03 Nucleated RBC % 0 PT 13.9 INR 1.1 Sodium 140 Potassium 4.0 Chloride 105 Carbon Dioxide 32.0 Anion Gap 3 L BUN 39 H Creatinine 1.40 H Estim Creat Clear Calc 40.66 Est GFR (MDRD) Af Amer 63 Est GFR (MDRD) Non-Af 52 L BUN/Creatinine Ratio 27.9 H Glucose 148 H Calcium 8.9 Magnesium 02/15/19 06:00 WBC RBC Hgb Hct MCV MCH MCHC RDW Std Deviation RDW Coeff of Porter Plt Count MPV Immature Gran % (Auto) Neut % (Auto) Lymph % (Auto) [place] % (Auto) Eos % (Auto) Baso % (Auto) Absolute Neuts (auto) Absolute Lymphs (auto) Nucleated RBC % PT INR Sodium Potassium Chloride Carbon Dioxide Anion Gap BUN Creatinine Estim Creat Clear Calc Est GFR (MDRD) Af Amer Est GFR (MDRD) Non-Af BUN/Creatinine Ratio Glucose Calcium Magnesium 2.1 POC Glucose 02/15/19 02/14/19 02/14/19 06:18 21:43 16:49 POC Glucose 141 H 117 H 169 H 02/14/19 13:22 POC Glucose 119 H Discharge Diet: Low fat/ Low Cholesterol Discharge Activity: Return to Normal Activity Weight Bearing Status: Weight bearing as tolerated Call your doctor if you observe: Shortness of breath, Swelling in the ankles, Chest pain Home Medications: Medications to take at Discharge Metoprolol Tartrate [Lopressor (beta filiberto)] 50 mg PO BID 05/20/18 Pravastatin [Pravachol] 80 mg PO QHS 05/20/18 metFORMIN HCl [Glucophage] 500 mg PO BIDCM 05/20/18 Multivitamin [Multiple Vitamins] 1 ea PO DAILY 08/19/18 Warfarin Sodium [Coumadin] 1 mg PO DAILY 02/10/19 Warfarin Sodium [Coumadin] 5 mg PO DAILY 02/10/19 Amiodarone HCl [Cordarone] 200 mg PO UD #60 tab 02/15/19 Furosemide [Lasix] 80 mg PO BID@1000,1800 #60 tab 02/15/19 Losartan Potassium [Cozaar] 50 mg PO BID #60 tab 02/15/19 Following Prescrptions Were Given to Patient: Amiodarone HCl [Cordarone] 200 mg PO UD #60 tab Transmission Status: Received by [facility] 181 Losartan Potassium [Cozaar] 50 mg PO BID #60 tab Transmission Status: [facility] Furosemide [Lasix] 80 mg PO BID@1000,1800 #60 tab Transmission Status: Re[facility] by [facility]12 Primary Care Physician: Chiki Brooks MD [Primary Care Provider] - Please follow up with your Primary Care Physician in: one week Please Follow Up With: Perico Mello MD When: 1-2 weeks; call office within one week for an appointment Patient Instructions: What Is Heart Failure?, Heart Failure: Warning Signs of a Flare-Up Disposition: Home Minutes spent on discharge:: 40 Patient Condition:: Stable Medical Necessity - Tobacco Use Smoking Status: Never smoker Tobacco Use: Non-smoker Meaningful Use Info Meaningful Use Diagnoses (Choose all that apply): CHF - CHF ISMAEL/ARB ordered at discharge?: Yes Documented LVEF (%): 55 Code Visit Inpatient E&M: 01022 Disch Hosp
[2019-02-15 12:05] LABS: Bedside Glucose 132 mg/dL (70-110)
--- NOTE | 2019-02-15 12:08 | PCM.PN.CARD ---
Subjectve: Patient feeling much better today. His edema has completely resolved. Patient did have a 6 beat and a 10 beat run of nonsustained ventricular tachycardia which was asymptomatic. This was self terminating. He is converted back to normal sinus rhythm on his own. Right groin is clean/dry/intact, without evidence of thrills, bruits or hematoma. Objective: Vital Signs Temp Pulse Resp BP Pulse Ox 98.5 F 77 17 130/66 H 92 02/15/19 08:24 02/15/19 09:42 02/15/19 10:37 02/15/19 08:24 02/15/19 08:24 Oxygen Flow Rate (L/min) 2 Oxygen Delivery Method Room Air Weight: 246 lb 0.574 oz Body Mass Index (BMI) 41.6 Intake and Output for Last 24 Hours 02/13/19 02/14/19 02/15/19 23:59 23:59 23:59 Intake Total 890 / 890 909.5 / 909.5 240 / 240 Output Total 4075 / 4075 1969 / 1970 575 / 575 Balance -3185 / -3185 -1060.5 / -1060.5 -335 / -335 General: Awake, Alert, Oriented x 3 HEENT: PERRL, EOMI, Sclera Non Icteric Neck: Supple, Good ROM, No Lymph Node Enlargement Lungs: Clear to auscultation Cardiovascular: Regular Rhythm, Normal S1, Normal S2, No Murmurs, No Rubs, No Gallops Vascular: No Carotid Bruits, Normal Femoral Pulses, Normal Radial Pulses, Normal Dorsalis Pedal Pulse, Normal Posterior Tibial Pulses Abdomen: Bowel Sounds Present, Soft, Non Tender, No HSM, No Organomegaly Extremities: No Cyanosis, No Clubbing, No edema Neurological: No Focal Motor or Sensory Deficit 02/15/19 05:55: WBC 5.4, RBC 4.31 L, Hgb 13.1, Hct 41.4, MCV 96.1 H, MCH 30.4, MCHC 31.6 L, Plt Count 163, MPV 9.3, Immature Gran % (Auto) 0.200, Neut % (Auto) 63.9, Lymph % (Auto) 19.1, Hudson % (Auto) 9.1, Eos % (Auto) 7.1 H, Baso % (Auto) 0.6, Absolute Neuts (auto) 3.4, Nucleated RBC % 0 02/15/19 05:55: PT 13.9, INR 1.1 02/15/19 06:00: Sodium 140, Potassium 4.0, Chloride 105, Carbon Dioxide 32.0, Anion Gap 3 L, BUN 39 H, Creatinine 1.40 H, Est GFR (MDRD) Af Amer 63, Est GFR (MDRD) Non-Af 52 L, BUN/Creatinine Ratio 27.9 H, Glucose 148 H, Calcium 8.9 02/15/19 06:00: Magnesium 2.1 Rhythm: EKG: ECHO: Stress Test: Cardiac Cath: PCI: CT Surgery: Holter monitor: EPS: PPM: CXR: Chest CT Scan: Medical Necessity - Tobacco Use Smoking Status: Never smoker Tobacco Use: Non-smoker Assessment/Plan 1. Shortness of breath: Patient has known obstructive sleep apnea but is unable to tolerate his CPAP and has not been using it. He has had no echocardiogram since June 2017 but at that time his LV function was normal and his RVSP was estimated be 31 mmHg. Patient now has had progressively worsening shortness of breath, dyspnea on exertion, abdominal fullness, and worsening lower extremity edema. In addition he has chronic atrial fibrillation and has been taking his Coumadin however his INR is subtherapeutic today. Chest x-ray demonstrated possible bilateral pulmonary vascular redistribution and pulmonary edema. He appeared to gain some benefit from nebulizer therapy but still has some audible bilateral wheezing. Patient underwent repeat echocardiogram on 02/10/2019 which showed mild global LV dysfunction with an EF of approximately 50 to 55%, unable to quantitate RVSP. I would not recommend stress testing at this time as the patient obviously presents with at least right-sided heart failure. Patient underwent left and right heart catheterization yesterday utilizing a wedge assist device. Patient was found to have moderate pulmonary hypertension, relatively intact LV function, and nonobstructive coronary artery disease. He tolerated the procedure well. At this point I would recommend continuing his antihypertensive and diuretic medications as outlined in the MRF. He has predominantly right-sided heart failure and will require ongoing diuretic therapy. 2. Atrial fibrillation: The patient appears to have chronic persistent atrial fibrillation is been on Coumadin for a number of years although he is unsure why he is on Coumadin. He is unaware of his atrial fibrillation. Impressively, the patient self converted to normal sinus rhythm however he has had several episodes of nonsustained ventricular tachycardia. In order to preserve his sinus rhythm as well as to suppress his ventricular arrhythmias, I recommended initiating amiodarone 400 mg p.o. twice daily x5 days followed by 200 mg p.o. daily. He will follow-up in our office in 1 week's time for an EKG to check his QT corrected interval. His Coumadin dosing may need to be adjusted at the addition of amiodarone. 3. Hyperlipidemia: Recommend obtaining a fasting lipid profile. 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 LDL is 87 and HDL is 44. 4. Pulmonary: The patient was exposed to industrial chemicals at [facility] for many many years. He has audible wheezing on physical exam and seem to canales benefit to nebulizer therapy. The patient may have undiagnosed pulmonary disease that may benefit from full pulmonary function test once his luminary status has been optimized. Recommend considering pulmonary consultation. 5. Thank you very much for the opportunity to participate in the cardiac care of your patient. Discussed with Dr. Jain. Patient may be discharged home and follow-up with Dr. Mello going forward. Code Visit Inpatient E&M: 91955 Subs Hosp L2
[2019-02-15] MEDS: Amiodarone 200 MG Tablet 400 MG PO (12:58)
--- NOTE | 2019-02-15 14:28 | NURSING ---
Read and reviewed SN documentation
--- NOTE | 2019-02-15 15:16 | CHAPLAIN ---
Type of Pastoral Visit ___ Initial Visit _x__ Follow-up Visit ___ On-call Visit ___ General Patient Visit ___ Spiritual Assessment ___ Family Conference ___ Bereavement ___ Rapid Response ___ Code Blue ___ Other (describe below) Pastoral Care Referral From _x__ Patient ___ Family ___ Nurse ___ Physician ___ Brothel Keeper ___ Surgical Services Assistant ___ Other (describe below) Sacrament/Intervention _x__ Active listening ___ Anointing ___ Mandaeism ___ Bereavement ___ Communion ___ Laura exploration ___ ___ Life review _x__ Prayer ___ Reconciliation ___ Sacrament of Sick _x__ Supportive presence ___ Wedding ___ Other (describe below) Pastoral Comments patient reports excellent care from all staff; pt and spouse encouraged by good news received; pt welcomes spiritual care support
--- NOTE | 2019-02-16 12:58 | CASEMGMT ---
Case Management DC F/u Call: DC Date: 02/15/19 DC Diagnosis: Acute heart failure with preserved ejection fraction DC Disposition: Home LACE/STRATA: 05/10 Called patient on listed cell phone in demographics, answered and this news writer introduced self and role. Patient states that he is doing ok since DC from hospital. He was able to obtain and get his medications, states Pharmacy and doctor collaborated and figured it out as there was a descrepancy with one of the medications that was prescribed. Denies any questions, concerns or issues with aftercare instructions, medications or follow up. Confirmed has all the contact numbers to schedule his f/u appointments. Thanked patient for choosing [facility] for his care. Ab Louis RNCM
== END 2019-02-15 17:19 | disposition home or self-care (01) | DRG 287 ==
LOC: ED 12:01 → PCU 15:07
PROVIDERS: Internal Medicine; Internal Medicine Cardiovascular Disease; Emergency Provider Physician Assistant; Family Provider Family Medicine; PCP Family Medicine; Visit Provider Student in an Organized Health Care Education/Training Program
DX: I11.0 Hypertensive heart disease with heart failure (principal); Z68.41 Body mass index [BMI] 40.0-44.9, adult; I47.2 Ventricular tachycardia; I50.33 Acute on chronic diastolic (congestive) heart failure; G47.33 Obstructive sleep apnea (adult) (pediatric); I48.2 Chronic atrial fibrillation; E66.01 Morbid (severe) obesity due to excess calories; Z66 Do not resuscitate; I27.20 Pulmonary hypertension, unspecified; M19.90 Unspecified osteoarthritis, unspecified site; E11.51 Type 2 diabetes mellitus with diabetic peripheral angiopathy without gangrene; G89.29 Other chronic pain; Z79.84 Long term (current) use of oral hypoglycemic drugs; Z79.01 Long term (current) use of anticoagulants; Z87.891 Personal history of nicotine dependence
CPT/HCPCS: 31720; 36415; 71045; 80048; 80061; 82803; 82962; 83036; 83735; 83880; 84443; 84484; 85025; 85610; 93005; 93306; 93460; 94640; 94760; 97802; 99152; 99251; 99284; J7030; Q9957; A4216; C1751; C1769; C1894; C8929; G0463; J1940; Q9967

== ENCOUNTER → 2019-02-22 10:47 | Outpatient (CLI) | payer MEDICARE, OTHER, SELFPAY ==
[2019-02-10 14:35] VITALS: BMI 41.6
[2019-02-22 11:37] LABS: Absolute Lymphocyte Count 1.05 X10^3/uL (0.83-4.51); Absolute Neutrophil Count 4.1 X10^3/uL (2.0-7.7); Basophil# 0.04 X10^3/uL; Basophil% 0.7 % (0-1); Eosinophil# 0.29 X10^3/uL; Eosinophils% 4.8 % (0-5); Hematocrit 44.4 % (40-54); Hemoglobin 14.3 g/dL (13.0-16.5); Lymphocyte # 1.05 X10^3/ul (4.0); Lymphocyte % 17.5 % (19-41); Mean Corp Hgb Conc 32.2 g/dL (32-36); Mean Corpuscular Volume 96.1 fL (80-94); Mean Platelet Vol. 9.7 fl (6.2-12.0); Monocyte# 0.52 X10^3/uL; Monocyte% 8.7 % (0-10); NRBC Flagged by Analyzer 0 % (0-5); Neutrophil # 4.07 X10^3/uL (2.7-7.7); Neutrophil % 67.8 % (47-70); Platelet Count 235 K/mm3 (150-450); RBC Distribution Width CV 14.2 % (11.6-14.6); Red Blood Count 4.62 M/mm3 (4.6-6.2)
[2019-02-22 12:00] LABS: Anion Gap 10 (5-15); BUN 81 mg/dL (7-18); BUN/Creat Ratio 35.7 RATIO (10-20); Calcium,Total 9.4 mg/dL (8.5-10.1); Chloride 100 mmol/L (98-107); Creatinine, Serum 2.27 mg/dL (0.70-1.30); EST Glomerular Filtration Rate 30 mL/min (>60); Est Glom Filt Rate - Afr Amer 36 mL/min (>60); Glucose 121 mg/dL (74-106); Potassium 4.9 mmol/L (3.5-5.1); Sodium Level 141 mmol/L (136-145)
[2019-02-22 12:10] LABS: BNP,B-Type NATRIURETIC PEPTIDE 81.8 pg/mL (0-100)
== END ==
PROVIDERS: Family Provider Family Medicine; PCP Family Medicine; Referring Provider Internal Medicine Cardiovascular Disease; Visit Provider Internal Medicine Cardiovascular Disease
DX: R06.02 Shortness of breath (principal); I95.9 Hypotension, unspecified
CPT/HCPCS: 36415; 80048; 83880; 85025

== ENCOUNTER → 2019-02-27 12:15 | Outpatient (CLI) | payer MEDICARE, OTHER, SELFPAY ==
[2019-02-22 11:30] VITALS: BMI 41.6
[2019-02-27 14:13] LABS: Anion Gap 8 (5-15); BUN 60 mg/dL (7-18); BUN/Creat Ratio 31.9 RATIO (10-20); Calcium,Total 8.8 mg/dL (8.5-10.1); Chloride 107 mmol/L (98-107); Creatinine, Serum 1.88 mg/dL (0.70-1.30); EST Glomerular Filtration Rate 37 mL/min (>60); Est Glom Filt Rate - Afr Amer 45 mL/min (>60); Glucose 118 mg/dL (74-106); Potassium 5.2 mmol/L (3.5-5.1); Sodium Level 140 mmol/L (136-145)
== END ==
PROVIDERS: Nurse Practitioner Family; Family Provider Family Medicine; PCP Family Medicine; Visit Provider Family Medicine
DX: N17.9 Acute kidney failure, unspecified (principal)
CPT/HCPCS: 36415; 80048

== ENCOUNTER → 2019-03-17 10:49 | Outpatient (CLI) | payer MEDICARE, OTHER, SELFPAY ==
[2019-03-17 10:10] VITALS: BMI 39.7
[2019-03-17 12:09] LABS: AST(SGOT) 18 U/L (15-37); Alanine Aminotransfer ALT/SGPT 23 U/L (16-61); Albumin, Serum 3.4 g/dL (3.2-5.0); Alkaline Phosphatase 86 U/L (45-117); Bilirubin, Direct 0.21 mg/dL (0.00-0.30); Globulin 3.6 g/dL (2.2-4.2); T4 Total, Thyroxin 9.8 ug/dL (4.5-12.1); Thyroid Stim Hormone (TSH) 2.07 uIU/mL (0.358-3.74)
== END ==
PROVIDERS: Family Provider Family Medicine; PCP Family Medicine; Referring Provider Internal Medicine Cardiovascular Disease; Visit Provider Internal Medicine Cardiovascular Disease
DX: I48.91 Unspecified atrial fibrillation (principal); Z79.899 Other long term (current) drug therapy
CPT/HCPCS: 36415; 80076; 84436; 84443

== ENCOUNTER → 2019-03-22 07:42 | Outpatient (CLI) | payer MEDICARE, OTHER, SELFPAY ==
[2019-03-17 10:10] VITALS: BMI 39.7
--- NOTE | 2019-03-23 16:32 | PFTCOMP ---
COMPLETE PULMONARY FUNCTION TEST INTERPRETATION Brief HPI: Patient is a 78 year old male, currently under the care of Dr. Mello, who presents to [facility] for complete pulmonary function tests secondary to diagnosis of A. fib. Respiratory therapist reports good effort and reproducible results. Interpretation: Forced expiration spirometry shows a moderately severe large airways obstructive ventilatory defect with an FEV1 of 76% predicted. There is a significant bronchodilator response in FVC and FEV1 by strict ATS criteria. Spirograms are of good quality and plateau slowly, indicating slowly emptying areas of the lungs. The respiratory flow volume loop shows decreased expiratory flow rates at all lung volumes consistent with airway obstruction. Lung volumes by body plethysmography show a normal total lung capacity at 6.46 L, 114% predicted. FRC and RV are elevated out of proportion. Lung volume measurements are consistent with hyperinflation and air-trapping. Diffusion capacity by carbon monoxide is normal at 78% predicted. The airway resistance is elevated. Compared to previous pulmonary function tests from 06/04/2011, there is been significant worsening in FVC, FEV1 and DLCO. Impression: Partially reversible moderately severe large airways obstructive ventilatory defect resulting in air trapping. There is been significant worsening compared to 2010.
== END ==
PROVIDERS: Family Provider Family Medicine; PCP Family Medicine; Referring Provider Internal Medicine Cardiovascular Disease; Visit Provider Internal Medicine Cardiovascular Disease
DX: I48.91 Unspecified atrial fibrillation (principal); Z79.899 Other long term (current) drug therapy
CPT/HCPCS: 94060; 94726; 94729

== ENCOUNTER → 2019-03-28 12:09 | Outpatient (CLI) | payer MEDICARE, OTHER, SELFPAY ==
[2019-03-17 10:10] VITALS: BMI 39.7
--- NOTE | 2019-03-28 12:12 | RAD_ITS ---
STUDY: X-RAY CHEST REASON FOR EXAM: Male, 78 years old. COPD exacerbation TECHNIQUE: PA and lateral views of the chest. COMPARISON: Prior study of 02/10/2019 FINDINGS: The lungs are clear and expanded. There is no demonstrated pleural abnormality. There is mild cardiac enlargement. Normal mediastinum and rhona. Normal visualized pulmonary arteries. There are calcified plaques of the aortic arch. There are diffuse degenerative changes of the visualized thoracic spine. Normal visualized ribs, clavicles, and shoulders. There is no demonstrated abnormality of the visualized soft tissue structures of the upper abdomen. RAD/Chest PA and Lateral IMPRESSION: 1. Mild cardiomegaly. 2. Calcified plaques of the aortic arch. 3. Degenerative changes of the thoracic spine. Electronically Signed: Hernando Brito MD at 23:13 EDT , Service support ,
== END ==
PROVIDERS: Family Provider Family Medicine; PCP Family Medicine; Referring Provider Family Medicine; Visit Provider Family Medicine
DX: J44.1 Chronic obstructive pulmonary disease with (acute) exacerbation (principal)
CPT/HCPCS: 71046

== ENCOUNTER → 2019-04-14 09:54 | Outpatient (CLI) | payer MEDICARE, OTHER, SELFPAY ==
[2019-03-17 10:10] VITALS: BMI 39.7
[2019-04-14 13:39] LABS: Anion Gap 7 (5-15); BUN 26 mg/dL (7-18); BUN/Creat Ratio 23.4 RATIO (10-20); Calcium,Total 8.4 mg/dL (8.5-10.1); Chloride 109 mmol/L (98-107); Cholesterol 118 mg/dL (200); Creatinine, Serum 1.11 mg/dL (0.70-1.30); EST Glomerular Filtration Rate 68 mL/min (>60); Est Glom Filt Rate - Afr Amer 82 mL/min (>60); Glucose 115 mg/dL (74-106); High Density Lipoprotein 46 mg/dL; Potassium 4.6 mmol/L (3.5-5.1); Sodium Level 142 mmol/L (136-145); Triglycerides 66 mg/dL; Very Low Density Lipoprotein 13 mg/dL (5-40)
== END ==
PROVIDERS: Family Provider Family Medicine; PCP Family Medicine; Referring Provider Family Medicine; Visit Provider Family Medicine
DX: I48.91 Unspecified atrial fibrillation (principal); E78.2 Mixed hyperlipidemia
CPT/HCPCS: 36415; 80048; 80061

== ENCOUNTER → 2019-05-08 14:52 | Outpatient (CLI) | payer MEDICARE, OTHER, SELFPAY ==
[2019-03-17 10:10] VITALS: BMI 39.7
--- NOTE | 2019-05-08 14:56 | RAD_ITS ---
STUDY: X-RAY CHEST REASON FOR EXAM: Male, 78 years old. COPD exacerbation TECHNIQUE: PA and lateral views of the chest. 3 images COMPARISON: 03/28/2019 FINDINGS: Stable areas of hyperinflation, interstitial prominence, linear changes in the left base. There is no focal parenchymal abnormality. The lungs are clear and expanded. There is no demonstrated pleural abnormality. There is mild cardiac enlargement. Normal mediastinum and rhona. Normal visualized pulmonary arteries. There is atherosclerotic calcification of the aortic arch with tortuosity. There are diffuse degenerative changes of the visualized thoracic spine. Normal visualized ribs, clavicles, and shoulders. There is no demonstrated abnormality of the visualized soft tissue structures of the upper abdomen. RAD/Chest PA and Lateral IMPRESSION: Stable interstitial lung disease, post obstructive hyperinflation and cardiac enlargement. No pulmonary edema, congestive heart failure or confluent pneumonia. Electronically Signed: Vielka Cook MD at 6:57 EST , Service support ,
[2019-05-08 18:03] LABS: Absolute Lymphocyte Count 0.57 X10^3/uL (0.83-4.51); Absolute Neutrophil Count 3.3 X10^3/uL (2.0-7.7); Basophil# 0.02 X10^3/uL; Basophil% 0.4 % (0-1); Eosinophil# 0.27 X10^3/uL; Eosinophils% 5.9 % (0-5); Hematocrit 38.3 % (40-54); Hemoglobin 11.9 g/dL (13.0-16.5); Lymphocyte # 0.57 X10^3/ul (4.0); Lymphocyte % 12.5 % (19-41); Mean Corp Hgb Conc 31.1 g/dL (32-36); Mean Corpuscular Hgb 31.4 pg (27.0-32.0); Mean Corpuscular Volume 101.1 fL (80-94); Monocyte# 0.35 X10^3/uL; Monocyte% 7.7 % (0-10); NRBC Flagged by Analyzer 0 % (0-5); Neutrophil # 3.33 X10^3/uL (2.7-7.7); Neutrophil % 73.3 % (47-70); POSITIVE DIFFERENTIAL YES; Platelet Count 116 K/mm3 (150-450); RBC Distribution Width CV 14.5 % (11.6-14.6); RBC Distribution Width SD 54.4 fl (35.1-43.9); Red Blood Count 3.79 M/mm3 (4.6-6.2); White Blood Count 4.6 K/mm3 (4.4-11.0)
[2019-05-08 18:38] LABS: AST(SGOT) 18 U/L (15-37); Alanine Aminotransfer ALT/SGPT 27 U/L (16-61); Albumin, Serum 3.5 g/dL (3.2-5.0); Alkaline Phosphatase 74 U/L (45-117); Anion Gap 4 (5-15); BUN 30 mg/dL (7-18); BUN/Creat Ratio 26.1 RATIO (10-20); Calcium,Total 9.5 mg/dL (8.5-10.1); Chloride 106 mmol/L (98-107); Creatinine, Serum 1.15 mg/dL (0.70-1.30); EST Glomerular Filtration Rate 65 mL/min (>60); Est Glom Filt Rate - Afr Amer 79 mL/min (>60); Globulin 3.4 g/dL (2.2-4.2); Glucose 127 mg/dL (74-106); Potassium 4.8 mmol/L (3.5-5.1); Protein, Total 6.9 g/dL (6.4-8.2); Sodium Level 141 mmol/L (136-145)
[2019-05-08 19:18] LABS: Differential Indicated SCAN CRITERIA MET
[2019-05-08 19:19] LABS: Platelet Estimate SLT DEC (ADEQ); Red Cell Morphology NORM C+C NORMAL (NORM C&C)
== END ==
PROVIDERS: Family Provider Family Medicine; PCP Family Medicine; Referring Provider Family Medicine; Visit Provider Family Medicine
DX: M79.89 Other specified soft tissue disorders (principal); J44.1 Chronic obstructive pulmonary disease with (acute) exacerbation; R06.02 Shortness of breath
CPT/HCPCS: 36415; 71046; 80053; 83880; 85025

== ENCOUNTER 2019-06-03 15:35 | Inpatient (IN) | payer MEDICARE, OTHER, SELFPAY ==
[2019-03-17 10:10] VITALS: BMI 39.7
[2019-06-03] VITALS (7 sets, daily range): BP systolic 142–161; BP diastolic 63–77; PULSE 51–87; RESP 17–22; TEMP 36.7–37.1; O2SAT 94–99; BMI 42.7; BMI 42.3
--- NOTE | 2019-06-03 16:00 | RAD_ITS ---
STUDY: X-RAY - LUMBAR SPINE REASON FOR EXAM: Male, 78 years old. LBP x 1 week -- fell today -- No injury to back prior to fall today TECHNIQUE: 3 view(s) of the lumbar spine were obtained. COMPARISON: None FINDINGS: Normal lumbar lordosis. There is no substantial scoliosis. There is a normal alignment of the vertebrae. There is diffuse demineralization with multi-level endplate spondylosis. There is multi-level degenerative disc disease with multi-level disc space narrowing. There is no demonstrated fracture. There is atherosclerotic calcification of the abdominal aorta without a demonstrated aneurysm. Bilateral hip replacements noted. RAD/Lumbar Spine 2 or 3 Views IMPRESSION: No demonstrate compression fracture. Electronically Signed: Familia Arrieta MD (Brooks) at 16:35 EST , Service support ,
--- NOTE | 2019-06-03 16:00 | RAD_ITS ---
STUDY: X-RAY - LEFT FOOT CLINICAL: Male, 78 years old. FELL TODAY -- left foot pain TECHNIQUE: 3 view(s) of the foot. COMPARISON: None. FINDINGS: Normal talus, calcaneus, and tarsal bones. Normal visualized subtalar, talonavicular, calcaneocuboid, tarsal and tarsometatarsal articulations. Normal metatarsi. There is degenerative arthrosis of the metatarsophalangeal joint of the hallux . Normal tibial and fibular sesamoid bones. Normal interphalangeal joint of the great toe. Normal phalanges of the great toe. Normal second through fifth metatarsophalangeal joints. Normal interphalangeal joints and phalanges of the lesser toes. There is soft tissue swelling of the forefoot. RAD/Foot min 3 Views IMPRESSION: 1. No fracture or malalignment. 2. Degenerative changes. Electronically Signed: Familia Arrieta MD (Brooks) at 16:34 EST , Service support ,
[2019-06-03] MEDS: fentaNYL 100 MCG/2 ML Ampul 25 MCG IV (16:12)
[2019-06-03 16:27] LABS: Absolute Lymphocyte Count 0.52 X10^3/uL (0.83-4.51); Absolute Neutrophil Count 5.1 X10^3/uL (2.0-7.7); Basophil# 0.03 X10^3/uL; Basophil% 0.5 % (0-1); Eosinophil# 0.16 X10^3/uL; Eosinophils% 2.5 % (0-5); Hematocrit 39.9 % (40-54); Hemoglobin 12.9 g/dL (13.0-16.5); Lymphocyte # 0.52 X10^3/ul (4.0); Lymphocyte % 8.3 % (19-41); Mean Corp Hgb Conc 32.3 g/dL (32-36); Mean Corpuscular Hgb 32.1 pg (27.0-32.0); Mean Corpuscular Volume 99.3 fL (80-94); Mean Platelet Vol. 9.8 fl (6.2-12.0); Monocyte# 0.39 X10^3/uL; Monocyte% 6.2 % (0-10); NRBC Flagged by Analyzer 0 % (0-5); Neutrophil # 5.11 X10^3/uL (2.7-7.7); Neutrophil % 81.4 % (47-70); POSITIVE DIFFERENTIAL YES; Platelet Count 135 K/mm3 (150-450); RBC Distribution Width CV 13.8 % (11.6-14.6); RBC Distribution Width SD 50.6 fl (35.1-43.9); Red Blood Count 4.02 M/mm3 (4.6-6.2); White Blood Count 6.3 K/mm3 (4.4-11.0)
[2019-06-03 16:38] LABS: International Normalized Ratio 1.5
[2019-06-03 16:39] LABS: Anion Gap 5 (5-15); BUN 36 mg/dL (7-18); BUN/Creat Ratio 32.7 RATIO (10-20); Calcium,Total 8.9 mg/dL (8.5-10.1); Chloride 109 mmol/L (98-107); EST Glomerular Filtration Rate 69 mL/min (>60); Est Glom Filt Rate - Afr Amer 83 mL/min (>60); Estimated Creatinine Clearance 49.94 ml/min; Glucose 165 mg/dL (74-106); Potassium 4.7 mmol/L (3.5-5.1); Sodium Level 144 mmol/L (136-145)
[2019-06-03 16:41] LABS: Differential Indicated SCAN CRITERIA MET
[2019-06-03 17:07] LABS: Bacteria 0 SEEN /hpf (None Seen); Squamous Epithelial Cells - UA 0 SEEN /hpf (0-5)
[2019-06-03 17:10] LABS: Platelet Estimate SLT DEC (ADEQ); Toxic Granulation RARE
[2019-06-03 17:11] LABS: Anisocytosis 1+; Macrocytosis 1+; Red Cell Morphology N CHROM NORMAL (NORM C&C)
[2019-06-03 17:27] LABS: Color, Urine Yellow (Yellow); Glucose, Dipstick Normal (Normal); Ketone-Dipstick Negative (Negative); Leukocyte Esterase-Dipstick Negative /ul (Negative); Nitrite-Dipstick Negative (Negative); Occult Blood-Urine 25 /ul (Negative); Protein-Dipstick 100 mg/dl (Negative); Urine Bilirubin Dipstick Negative (Negative); Urine Clarity Clear (Clear); Urine Urobilinogen Normal (Normal)
[2019-06-03 17:32] LABS: Hyaline Cast 0-5 SEEN /lpf (0-5)
[2019-06-03 17:34] LABS: Mucous, Urine RARE /hpf (<or=2+); Red Blood Cells-Urine 0-5 SEEN /hpf (0-5)
[2019-06-03 17:35] LABS: White Blood Cells 0-5 SEEN /hpf (0-5)
[2019-06-03 17:37] LABS: Transitional Epithelial - Ur 0-5 SEEN /hpf (0-5)
--- NOTE | 2019-06-03 18:41 | NURSING ---
the pt had difficulty getting and moving around the bed. pt was unable to stand up longer than a couple of seconds. pt unable to ambulate. has an appointment with barry next week.
--- NOTE | 2019-06-03 18:46 | ED.VISSUMM ---
- ER Visit Summary Date of Service: 06/03/19 Chief Complaint: Fall History of Present Illness: The patient is a 78 M with ongoing low back pain for about a week and a half. He said his legs gave out today secondary to pain and he fell. He injured his left foot and has worsening lower back pain. He also felt yesterday secondary to his legs giving out. He does not have focal weakness per se, rather his legs give out because of pain. He denies any sensory changes. Denies any bowel or bladder changes. He has no GI symptoms or symptoms. No fever or systemic symptoms. Denies any history of back trauma otherwise. Denies any history of immune compromise. Denies IV drug abuse. Denies fever or systemic symptoms. He has a history of diabetes, CHF, and atrial fibrillation. He takes Coumadin. He denies head or neck injury. He was able to somewhat catch himself, and did not hit his head. No headache. Physical Examination: Afebrile and vital signs unremarkable. Head and neck are atraumatic and unremarkable. Heart regular. Lungs clear. Abdomen soft. Diffuse lumbar tenderness. Left foot is tender to palpation dorsally. He is neurovascular intact distally. Good range of motion. Good strength and sensation. Skin tear over the right wrist. Cranial nerves grossly intact. No focal or lateralizing neurologic abnormalities. Test Results: X-rays of his lumbar spine and left foot showed no acute abnormalities. Basic labs were all unremarkable. Urinalysis unremarkable. INR 1.5. Emergency Department Course and Treatment: Patient treated with fentanyl. His work-up was fairly unremarkable. His vital signs, exam, and history were reassuring. We attempted to have the patient ambulate, but he was unable to walk secondary to pain. He did not feel that additional pain medicine would help. He does not feel safe going home. His family agrees. I contacted the hospitalist to admit for intractable pain. Treatment Plan: As above Disposition: Admission Impression: 1. Intractable back pain This note was generated with [employer] dictation software. It may contain incorrect words, spelling, and punctuation that were not noted in review of the chart prior to signing ED Disposition - Plan for ED Patient: Referrals: Chiki Brooks MD [Primary Care Provider] -
--- NOTE | 2019-06-03 19:00 | PCM.HP.STD ---
History of Present Illness Date of Admission: 06/03/19 Chief Complaint: Low back pain The patient is a 78 year old M with a PMH as below who presents after having 2 falls, one last night and 1 today. He states that he is been having significant back pain for the last week and a half and he is not sure why. He denies any trauma or recent falls. He states he does not feel like he twisted his back in any fashion whatsoever. He denies any significant midline tenderness though he does have a bandlike pain across the entire back. No red flags in terms of saddle anesthesia or incontinence of bowel or bladder. He also denies any fevers or chills. He says that it feels like his legs have been giving out and that is what he has been falling. But he denies having any loss of sensation in his legs. He does have a history of bilateral hip replacements. In the ER a foot x-ray was negative as was a lumbar x-ray. He does say that with his previous falls he did have skin tears today because of skin turn his right forearm and last night had a skin tear on his left forearm. Past Medical History Past Medical History (Chronic Problems): Chronic Problems (Last Updated 03/17/19 @ 10:31 by Ana Lagos) On amiodarone therapy (Chronic) History of right and left heart catheterization (Chronic 02/14/19) Normal Left Ventricular systolic function; LVEF: by LV gram 65 %; Elevated Left Ventricular End Diastolic Pressure; Non obstructive coronary arteries; The patient has pulmonary hypertension which is moderate. 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119 Nonhealing nonsurgical wound with fat layer exposed (Acute) T14.8XXA Peripheral vascular disease of lower extremity with ulceration (Chronic) I73.9, L97.909 Afib I48.91 Allergies naproxen [From Naprosyn] Allergy (Unknown, Verified 06/03/19 15:36) Hives codeine Allergy (Verified 06/03/19 15:36) Hives gabapentin Allergy (Verified 06/03/19 15:36) Hives hydrocodone [From Vicodin] Allergy (Verified 06/03/19 15:36) Hives levofloxacin [From Levaquin] Allergy (Verified 06/03/19 15:36) Hives lisinopril Allergy (Verified 06/03/19 15:36) Hives morphine Allergy (Verified 06/03/19 15:36) Hives sertraline [From Zoloft] Allergy (Verified 06/03/19 15:36) Hives simvastatin [From Zocor] Allergy (Verified 06/03/19 15:36) Hives sulfamethoxazole Allergy (Verified 06/03/19 15:36) Hives Home Medications: Ambulatory Orders Medication Instructions Recorded Metoprolol Tartrate [Lopressor 50 mg PO BID 05/20/18 (beta filiberto)] Pravastatin [Pravachol] 80 mg PO QHS 05/20/18 metFORMIN HCl [Glucophage] 500 mg PO DAILY 05/20/18 Multivitamin [Multiple Vitamins] 1 ea PO DAILY 08/19/18 Warfarin Sodium [Coumadin] 1 mg PO DAILY 02/10/19 Warfarin Sodium [Coumadin] 5 mg PO DAILY 02/10/19 Meloxicam 15 mg PO DAILY 06/03/19 Prednisone 20 mg PO DAILY 06/03/19 Surgical History: Surgical History (Last Reviewed 03/17/19 @ 10:10 by Ana Lagos) History of right and left heart catheterization (Chronic) Onset Date: 02/14/19 Z98.890 Normal Left Ventricular systolic function; LVEF: by LV gram 65 %; Elevated Left Ventricular End Diastolic Pressure; Non obstructive coronary arteries; The patient has pulmonary hypertension which is moderate. History of total replacement of both hip joints Z96.643 Smoking Status: Former smoker Tobacco Use: Cigarettes Alcohol: None Drugs: None - *Family History Maternal History Items: Hypertension, - - no CAD Review of Systems Constitutional: Denies: Chills, Fever, Weight Change HEENT: Denies: Head Aches, Sinus Congestion, Sinus Drainage Cardiovascular: Denies: Chest Pain, Palpitations Respiratory: Denies: Cough, Shortness of breath at rest, Sputum production Gastrointestinal: Denies: Abdominal Pain, Nausea, Vomiting Genitourinary: Denies: Dysuria Musculoskeletal: Reports: Back Pain - Lumbar. Denies: Joint Pain, Joint Tenderness Skin: Denies: Rash, Wounds Neurological: Denies: Numbness, Tingling, Focal weakness Psychiatric: Denies: Anxiety, Depression Hematologic/ Lymphatic: Denies: Easy Bruising, Easy Bleeding VTE Information - Inpt Only VTE Present on Admission: No - Physical Exam Vitals/I&O's: Vital Signs Temp Pulse Resp BP Pulse Ox 98.7 F 61 18 142/67 H 96 06/03/19 15:40 06/03/19 18:41 06/03/19 18:41 06/03/19 18:41 06/03/19 18:41 Oxygen Delivery Method Room Air Weight: 264 lb 15.93 oz Body Mass Index (BMI) 42.7 General: Alert, Oriented x3, Cooperative, No apparent distress HEENT: Atraumatic, PERRLA, EOMI, Normocephalic Oral: Moist Mucosa Neck: Supple, No JVD Lungs: Clear to auscultation, Normal air movement, No rhonchi, No wheeze, No rales, Diminished Cardiovascular: Regular rate, Regular Rhythm, Normal S1, Normal S2, No murmurs Abdomen: Soft, Non Tender, Non-Distended, No Hepato-splenomegaly Extremities: No edema, Capillary Refill Less than 3 Seconds Skin: No rashes, No breakdown Musculoskeletal: Tenderness - Across his lumbar back bilateral paraspinal areas Neurological: Neuro grossly intact, Sensory exam intact to light touch and pain Psych/Mental Status: Normal Affect, Appropriate Laboratory Results 06/03/19 16:16: WBC 6.3, RBC 4.02 L, Hgb 12.9 L, Hct 39.9 L, MCV 99.3 H, MCH 32.1 H, MCHC 32.3, RDW Std Deviation 50.6 H, RDW Coeff of Porter 13.8, Plt Count 135 L, MPV 9.8, Immature Gran % (Auto) 1.100 H, Neut % (Auto) 81.4 H, Lymph % (Auto) 8.3 L, Banks % (Auto) 6.2, Eos % (Auto) 2.5, Baso % (Auto) 0.5, Absolute Neuts (auto) 5.1, Absolute Lymphs (auto) 0.52 L, Nucleated RBC % 0, Differential Comment SEE COMMENT, Toxic Granulation RARE, Platelet Estimate SLT DEC, RBC Morphology N CHROM, Anisocytosis 1+, Macrocytosis 1+ 06/03/19 16:16: PT 18.0 H, INR 1.5 06/03/19 16:16: Sodium 144, Potassium 4.7, Chloride 109 H, Carbon Dioxide 30.0, Anion Gap 5, BUN 36 H, Creatinine 1.10, Estim Creat Clear Calc 49.94, Est GFR (MDRD) Af Amer 83, Est GFR (MDRD) Non-Af 69, BUN/Creatinine Ratio 32.7 H, Glucose 165 H, Calcium 8.9 06/03/19 16:59: Urine Color Yellow, Urine Clarity Clear, Urine pH 5.0, Ur Specific Sidney 1.020, Urine Protein 100 H, Urine Glucose (UA) Normal, Urine Ketones Negative, Urine Occult Blood 25 H, Urine Nitrite Negative, Urine Bilirubin Negative, Urine Urobilinogen Normal, Ur Leukocyte Esterase Negative, Urine RBC 0-5 SEEN, Urine WBC 0-5 SEEN, Ur Squamous Epith Cells 0 SEEN, Ur Transition Epith Cell 0-5 SEEN, Urine Bacteria 0 SEEN, Hyaline Casts 0-5 SEEN, Urine Mucus RARE Assessment/Plan All Active Problems (Last Updated 03/17/19 @ 10:31 by Ana Lagos) (HFpEF) heart failure with preserved ejection fraction (Acute) Decubitus ulcer of right buttock, stage 2 (Acute) Traumatic skin ulcer with fat layer exposed (Acute) Cellulitis of lower extremity (Acute) Nonhealing nonsurgical wound with fat layer exposed (Acute) 1. Low back pain preventing completion of ADLs/falls x2 -Consult wound care for the skin tears -PT/OT for evaluation -Prednisone for low back pain as well as Tylenol -Lumbar x-ray was negative 2. A. fib/HLD/HTN -He is on Coumadin, his INR is 1.5, resume his Coumadin dosing tonight and recheck INR in the morning -Blood pressure is stable, continue with his metoprolol -Continue with pravastatin 3. DM 2/morbid obesity -We will hold his home metformin and place on sliding scale insulin -Accu-Cheks AC at bedtime -We will place him on a calorie controlled diet, discussed diet and exercise DVT: Coumadin 2 Code Visit OBSV E&M: 51662 Initial observation care L2
[2019-06-03] MEDS: Acetaminophen 325 MG Tablet 650 MG PO (20:22)
[2019-06-03 20:41] LABS: Bedside Glucose 164 mg/dL (70-110)
[2019-06-03] MEDS: Insulin Lispro 100 UNIT/ML INSULN.PEN SC (22:01)
[2019-06-03] MEDS: Pravastatin 80 MG Tablet PO (22:01)
[2019-06-03] MEDS: Metoprolol Tartrate 50 MG Tablet PO (22:01)
[2019-06-04] VITALS (7 sets, daily range): BP systolic 143–187; BP diastolic 67–95; PULSE 52–94; RESP 16–18; TEMP 36.9–37.3; O2SAT 94–95
[2019-06-04] MEDS: traMADol 50 MG Tablet PO ×2 (01:39→21:25)
[2019-06-04 06:51] LABS: Absolute Lymphocyte Count 0.94 X10^3/uL (0.83-4.51); Absolute Neutrophil Count 3.7 X10^3/uL (2.0-7.7); Basophil# 0.01 X10^3/uL; Basophil% 0.2 % (0-1); Eosinophil# 0.15 X10^3/uL; Eosinophils% 2.8 % (0-5); Hematocrit 38.2 % (40-54); Hemoglobin 12.7 g/dL (13.0-16.5); Lymphocyte # 0.94 X10^3/ul (4.0); Lymphocyte % 17.7 % (19-41); Mean Corp Hgb Conc 33.2 g/dL (32-36); Mean Corpuscular Hgb 32.5 pg (27.0-32.0); Mean Corpuscular Volume 97.7 fL (80-94); Mean Platelet Vol. 9.6 fl (6.2-12.0); Monocyte# 0.46 X10^3/uL; Monocyte% 8.7 % (0-10); NRBC Flagged by Analyzer 0 % (0-5); Neutrophil % 69.8 % (47-70); Platelet Count 117 K/mm3 (150-450); RBC Distribution Width CV 13.8 % (11.6-14.6); RBC Distribution Width SD 49.6 fl (35.1-43.9); Red Blood Count 3.91 M/mm3 (4.6-6.2); White Blood Count 5.3 K/mm3 (4.4-11.0)
[2019-06-04 06:56] LABS: Bedside Glucose 91 mg/dL (70-110)
[2019-06-04 06:59] LABS: International Normalized Ratio 1.5; Prothrombin Time (Protime)PT. 17.9 SECONDS (11.7-14.9)
[2019-06-04 07:03] LABS: Anion Gap 4 (5-15); BUN 28 mg/dL (7-18); BUN/Creat Ratio 30.2 RATIO (10-20); Calcium,Total 8.2 mg/dL (8.5-10.1); Chloride 109 mmol/L (98-107); Creatinine, Serum 0.93 mg/dL (0.70-1.30); EST Glomerular Filtration Rate 84 mL/min (>60); Est Glom Filt Rate - Afr Amer 101 mL/min (>60); Estimated Creatinine Clearance 59.07 ml/min; Glucose 109 mg/dL (74-106); Potassium 4.4 mmol/L (3.5-5.1); Sodium Level 141 mmol/L (136-145)
[2019-06-04] MEDS: predniSONE 20 MG Tablet 40 MG PO (10:12)
[2019-06-04] MEDS: Meloxicam 15 MG Tablet PO (10:12)
[2019-06-04] MEDS: Metoprolol Tartrate 50 MG Tablet PO ×2 (10:13→21:23)
[2019-06-04 13:06] LABS: Bedside Glucose 118 mg/dL (70-110)
--- NOTE | 2019-06-04 15:10 | PN_ITS ---
Reason for Visit: Follow-up on acute back pain Subjective: Patient was seen and examined. Complains of persistent back pain. Pain m edications are helping. He is unable to walk. Denies numbness or tingling in his extremities as well as incontinence of urine or bowel. History of falls. Lumbar x-ray was unremarkable Objective: Physical exam: General: Alert, Oriented x3, Cooperative, No apparent distress HEENT: Atraumatic, PERRLA, EOMI, Normocephalic Oral: Moist Mucosa Neck: Supple, No JVD Lungs: Clear to auscultation, Normal air movement, No rhonchi, No wheeze, No rales, Diminished Cardiovascular: Regular rate, Regular Rhythm, Normal S1, Normal S2, No murmurs Abdomen: Soft, Non Tender, Non-Distended, No Hepato-splenomegaly Extremities: No edema, Capillary Refill Less than 3 Seconds Skin: No rashes, No breakdown Musculoskeletal: Tenderness in the lumbar region Neurological: Neuro grossly intact, Sensory exam intact to light touch and pain Psych/Mental Status: Normal Affect, Appropriate Vitals/I&O's: Vital Signs Temp Pulse Resp BP Pulse Ox 98.8 F 94 18 152/70 H 94 06/04/19 10:03 06/04/19 10:13 06/04/19 10:03 06/04/19 10:03 06/04/19 10:03 Oxygen Delivery Method Room Air Weight: 118.8 kg Body Mass Index (BMI) 42.3 Intake and Output for Last 24 Hours 06/02/19 06/03/19 06/04/19 23:59 23:59 23:59 Intake Total 400 / 400 400 / 400 Output Total 500 / 500 550 / 550 Balance -100 / -100 -150 / -150 Laboratory Results 06/03/19 16:16: WBC 6.3, RBC 4.02 L, Hgb 12.9 L, Hct 39.9 L, MCV 99.3 H, MCH 32.1 H, MCHC 32.3, RDW Std Deviation 50.6 H, RDW Coeff of Porter 13.8, Plt Count 135 L, MPV 9.8, Immature Gran % (Auto) 1.100 H, Neut % (Auto) 81.4 H, Lymph % (Auto) 8.3 L, [place] % (Auto) 6.2, Eos % (Auto) 2.5, Baso % (Auto) 0.5, Absolute Neuts (auto) 5.1, Absolute Lymphs (auto) 0.52 L, Nucleated RBC % 0, Differential Comment SEE COMMENT, Toxic Granulation RARE, Platelet Estimate SLT DEC, RBC Morphology N CHROM, Anisocytosis 1+, Macrocytosis 1+ 06/03/19 16:16: PT 18.0 H, INR 1.5 06/03/19 16:16: Sodium 144, Potassium 4.7, Chloride 109 H, Carbon Dioxide 30.0, Anion Gap 5, BUN 36 H, Creatinine 1.10, Estim Creat Clear Calc 49.94, Est GFR (MDRD) Af Amer 83, Est GFR (MDRD) Non-Af 69, BUN/Creatinine Ratio 32.7 H, Glucose 165 H, Calcium 8.9 06/03/19 16:59: Urine Color Yellow, Urine Clarity Clear, Urine pH 5.0, Ur Specific [place] 1.020, Urine Protein 100 H, Urine Glucose (UA) Normal, Urine Ketones Negative, Urine Occult Blood 25 H, Urine Nitrite Negative, Urine Bilirubin Negative, Urine Urobilinogen Normal, Ur Leukocyte Esterase Negative, Urine RBC 0-5 SEEN, Urine WBC 0-5 SEEN, Ur Squamous Epith Cells 0 SEEN, Ur Tra nsition Epith Cell 0-5 SEEN, Urine Bacteria 0 SEEN, Hyaline Casts 0-5 SEEN, Urine Mucus RARE 06/03/19 20:33: POC Glucose 164 H 06/04/19 06:33: WBC 5.3, RBC 3.91 L, Hgb 12.7 L, Hct 38.2 L, MCV 97.7 H, MCH 32.5 H, MCHC 33.2, RDW Std Deviation 49.6 H, RDW Coeff of Porter 13.8, Plt Count 117 L, MPV 9.6, Immature Gran % (Auto) 0.800, Neut % (Auto) 69.8, Lymph % (Auto) 17.7 L, [place] % (Auto) 8.7, Eos % (Auto) 2.8, Baso % (Auto) 0.2, Absolute Neuts (auto) 3.7, Absolute Lymphs (auto) 0.94, Nucleated RBC % 0 06/04/19 06:33: PT 17.9 H, INR 1.5 06/04/19 06:33: Sodium 141, Potassium 4.4, Chloride 109 H, Carbon Dioxide 28.0, Anion Gap 4 L, BUN 28 H, Creatinine 0.93, Estim Creat Clear Calc 59.07, Est GFR (MDRD) Af Amer 101, Est GFR (MDRD) Non-Af 84, BUN/Creatinine Ratio 30.2 H, Glucose 109 H, Calcium 8.2 L 06/04/19 06:38: POC Glucose 91 06/04/19 12:10: POC Glucose 118 H Current Medications Acetaminophen (Tylenol) 650 mg PO Q6H PRN PRN PRN Reason: Pain Score 1-10/Temp > 100.7 F Last Admin: 06/03/19 20:22 Dose: 650 mg Documented by: Glucagon () 1 mg IM .X1 PRN PRN Reason: Hypoglycemia Dextrose (Dextrose 10%-Water) 250 mls @ 999 mls/hr IV .Q16M PRN; Protocol PRN Reason: HYPOGLYCEMIA Insulin Human Lispro (Humalog Kwikpen (Bkc)) 0 unit SC [facility]; Protocol Last Admin: 06/04/19 13:14 Dose: Not Given Documented by: Magnesium Hydroxide (Milk Of Magnesia) 30 ml PO DAILY PRN PRN Reason: Constipation Meloxicam (Mobic) 15 mg PO DAILY [facility] Last Admin: 06/04/19 10:12 Dose: 15 mg Documented by: Metoprolol Tartrate (Lopressor (Beta Gilbert)) 50 mg PO BID [facility] Last Admin: 06/04/19 10:13 Dose: 50 mg Documented by: Pravastatin Sodium (Pravachol) 80 mg PO QHS [facility] Last Admin: 06/03/19 22:01 Dose: 80 mg Documented by: Prednisone () 40 mg PO DAILY@0800 [facility] Last Admin: 06/04/19 10:12 Dose: 40 mg Documented by: Senna/Docusate Sodium (Senokot-S, Yokasta-Colace) 2 tablet PO DAILY PRN PRN PRN Reason: CONSTIPATION Sodium Chloride () 10 - 40 ml IV UD PRN PRN Reason: SALINE FLUSH Tramadol HCl (Ultram) 50 mg PO TID PRN PRN PRN Reason: Pain Score 6-10/10 Last Admin: 06/04/19 01:39 Dose: 50 mg Documented by: Warfarin Sodium (Coumadin (Pbkc)) 8 mg PO X1 ONE Stop: 12/29/19 17:01 Warfarin Sodium (Coumadin (Pbkc)) 6 mg PO DAILY@1700 [facility] Medical Necessity - Tobacco Use Smoking Status: Former smoker Tobacco Use: Cigarettes Assessment/Plan All Active Problems (Last Updated 03/17/19 @ 10:31 by Ana Lagos) (HFpEF) heart failure with preserved ejection fraction (Acute) Decubitus ulcer of right buttock, stage 2 (Acute) Traumatic skin ulcer with fat layer exposed (Acute) Cellulitis of lower extremity (Acute) Nonhealing nonsurgical wound with fat layer exposed (Acute) 1. Acute on chronic low back pain, mildly improved Patient has inability to walk Lumbar x-ray negative for acute compression fractures On prednisone p.o. as well as tramadol as needed We will get MRI of the lumbar spine in a.m. Ativan 1 mg p.o. x1 for sedation prior to MRI Will wait for PT and OT evaluation to see patient's disposition -patient states he is okay to go to a residential facility for rehab if need be 2. Chronic atrial fibrillation, INR is subtherapeutic, 1.5 We will give warfarin 8 mg p.o. x1 Resume on 6 mg p.o. daily from tomorrow Check INR in a.m. 3. Hypertension/chronic diastolic CHF/hyperlipidemia, stable, continue on metoprolol, pravastatin 4. DVT PPx-on Coumadin Code Visit Inpatient E&M: 55585 Subs Hosp L2
[2019-06-04] MEDS: Insulin Lispro 100 UNIT/ML INSULN.PEN SC ×2 (16:31→21:29)
[2019-06-04 17:20] LABS: Bedside Glucose 210 mg/dL (70-110)
[2019-06-04] MEDS: Pravastatin 80 MG Tablet PO (21:23)
[2019-06-04 22:46] LABS: Bedside Glucose 178 mg/dL (70-110)
[2019-06-05 03:15] VITALS: BP 161/67; PULSE 52; RESP 18; TEMP 37; O2SAT 93
[2019-06-05 05:46] LABS: Absolute Lymphocyte Count 0.94 X10^3/uL (0.83-4.51); Basophil# 0.02 X10^3/uL; Basophil% 0.4 % (0-1); Eosinophil# 0.06 X10^3/uL; Eosinophils% 1.3 % (0-5); Hematocrit 36.4 % (40-54); Hemoglobin 11.8 g/dL (13.0-16.5); Lymphocyte # 0.94 X10^3/ul (4.0); Lymphocyte % 20.5 % (19-41); Mean Corp Hgb Conc 32.4 g/dL (32-36); Mean Corpuscular Hgb 31.4 pg (27.0-32.0); Mean Corpuscular Volume 96.8 fL (80-94); Mean Platelet Vol. 9.8 fl (6.2-12.0); Monocyte% 10.9 % (0-10); NRBC Flagged by Analyzer 0 % (0-5); Neutrophil # 3.01 X10^3/uL (2.7-7.7); Neutrophil % 65.8 % (47-70); Platelet Count 115 K/mm3 (150-450); RBC Distribution Width CV 13.5 % (11.6-14.6); Red Blood Count 3.76 M/mm3 (4.6-6.2); White Blood Count 4.6 K/mm3 (4.4-11.0)
[2019-06-05 05:52] LABS: International Normalized Ratio 1.7; Prothrombin Time (Protime)PT. 19.6 SECONDS (11.7-14.9)
--- NOTE | 2019-06-05 05:55 | MRI_ITS ---
STUDY: MRI LUMBAR SPINE WITHOUT CONTRAST REASON FOR EXAM: Male, 78 years old. ACUTE ON CHRONIC BACK PAIN -- falls x 2 , increase back pain with bilat leg weakness x 3 weeks TECHNIQUE: Standardized fat and water weighted pulse sequences were obtained in the sagittal and axial planes. COMPARISON: None FINDINGS: No demonstrated bone marrow edema or compression deformity or acute fracture line. No aggressive abnormality seen. Normal lumbar lordosis. Mild to moderate dextroscoliosis is present. Normal conus medullaris that terminates at the T12-L1 level. L1-2: The disc spaces mildly to moderately narrowed with minimal posterior annular bulging. A small anterior disc spur complex is present. Normal bilateral facet joints. Normal central canal and bilateral lateral recesses. Normal bilateral intervertebral neural foramina. L2-3: Normal endplates. Mild posterior disc space narrowing is present as well as minimal annular bulging. Normal bilateral facet joints. Normal central canal and bilateral lateral recesses. Normal bilateral intervertebral neural foramina. L3-4: Normal endplates. Mild posterior disc space narrowing is present without posterior disc herniation or bulging. Mild to moderate central canal stenosis is present secondary to facet joint and ligamenta flava hypertrophy. A 1.13 cm cyst is present in the left posterior epidural space resulting in mass effect on the thecal sac and nerve roots which is favored to originated from the facet joint. Bilateral lateral recess is present without demonstrated nerve root compression. Normal bilateral intervertebral neural foramina. L4-5: Normal endplates. The disc spaces mildly to moderately narrowed. No posterior disc herniation or bulging. The facet joints are mildly degenerated and hypertrophied. Normal central canal and bilateral lateral recesses. Normal bilateral intervertebral neural foramina. L5-S1: Normal endplates. Mild disc space narrowing is present with minimal posterior annular bulging. Normal bilateral facet joints. Normal central canal and bilateral lateral recesses. Normal bilateral intervertebral neural foramina. Normal visualized sacral ala. There is moderate paraspinal muscular atrophy. Moderate posterior disc space narrowing is present at the T11-T12 level and associated with subligamentous extruded disc material that is above and below the disc space and contributes to moderate central canal stenosis and compression anterior aspect of the cord. The cord is also slightly flattened/atrophied at this level. MRI/Spine Lumbar (Routine) IMPRESSION: 1. Moderate posterior disc space narrowing is present at the T11-T12 level and associated with subligamentous extruded disc material that is above and below the disc space and contributes to moderate central canal stenosis and compression anterior aspect of the cord. The cord is also slightly flattened/atrophied at this level. 2. L3-L4 mild to moderate central canal stenosis is present secondary to facet joint and ligamenta flava hypertrophy. 3. A 1.13 cm cyst is present in the left posterior epidural space of L3-L4 resulting in mass effect on the thecal sac and nerve roots which is favored to originated from the facet joint. Electronically Signed: Yogesh Lowe MD at 16:26 EST , Service support ,
[2019-06-05 06:14] LABS: AST(SGOT) 19 U/L (15-37); Alanine Aminotransfer ALT/SGPT 40 U/L (16-61); Alkaline Phosphatase 45 U/L (45-117); Anion Gap 4 (5-15); BUN 29 mg/dL (7-18); BUN/Creat Ratio 30.8 RATIO (10-20); Calcium,Total 8.1 mg/dL (8.5-10.1); Chloride 108 mmol/L (98-107); Creatinine, Serum 0.94 mg/dL (0.70-1.30); EST Glomerular Filtration Rate 82 mL/min (>60); Est Glom Filt Rate - Afr Amer 100 mL/min (>60); Estimated Creatinine Clearance 58.45 ml/min; Globulin 2.9 g/dL (2.2-4.2); Glucose 131 mg/dL (74-106); Potassium 4.1 mmol/L (3.5-5.1); Protein, Total 5.9 g/dL (6.4-8.2); Sodium Level 140 mmol/L (136-145)
[2019-06-05 06:56] LABS: Bedside Glucose 129 mg/dL (70-110)
[2019-06-05] MEDS: predniSONE 20 MG Tablet 40 MG PO (08:06)
[2019-06-05 08:07] VITALS: PULSE 60
[2019-06-05] MEDS: Metoprolol Tartrate 50 MG Tablet PO ×2 (08:07→21:40)
[2019-06-05] MEDS: Meloxicam 15 MG Tablet PO (08:07)
[2019-06-05 09:15] VITALS: BP 155/61; PULSE 60; RESP 16; TEMP 37.2; O2SAT 95
--- NOTE | 2019-06-05 09:27 | NURSING ---
wound photo: left wrist
--- NOTE | 2019-06-05 09:28 | NURSING ---
wound photo: right wrist
--- NOTE | 2019-06-05 10:30 | PCM.PN.HOSP ---
Reason for Visit: follow-up low back pain Subjective: Patient is a 78-year-old gentleman admitted with low back pain with difficulty ambulating Objective: GENERAL: cooperative HEENT: Atraumatic; EYES; Anicteric, Normal Conjunctiva NECK; supple, normal thyroid, RESPIRATORY: Diminished to auscultation CARDIOVASCULAR: Regular S1 S2, GI: soft, normoactive bowel sounds, : No Renal angle tenderness; EXTREMITIES: No edema, no clubbing, MUSCULOSKELETAL: no muscle waisting NEURO: Awake; no lateralizing signs. SKIN: No Rash PSYCH; Flat affect Vitals/I&O's: Vital Signs Temp Pulse Resp BP Pulse Ox 98.9 F 60 16 155/61 H 95 06/05/19 09:15 06/05/19 09:15 06/05/19 09:15 06/05/19 09:15 06/05/19 09:15 Oxygen Delivery Method Room Air Weight: 118.8 kg Body Mass Index (BMI) 42.3 Intake and Output for Last 24 Hours 06/03/19 06/04/19 06/05/19 23:59 23:59 23:59 Intake Total 400 / 400 700 / 1100 750 / 750 Output Total 500 / 500 950 / 1950 1475 / 1475 Balance -100 / -100 -250 / -850 -725 / -725 Laboratory Results 06/04/19 12:10: POC Glucose 118 H 06/04/19 16:25: POC Glucose 210 H 06/04/19 21:28: POC Glucose 178 H 06/05/19 05:25: PT 19.6 H, INR 1.7 06/05/19 05:25: WBC 4.6, RBC 3.76 L, Hgb 11.8 L, Hct 36.4 L, MCV 96.8 H, MCH 31.4, MCHC 32.4, RDW Std Deviation 48.0 H, RDW Coeff of Porter 13.5, Plt Count 115 L, MPV 9.8, Immature Gran % (Auto) 1.100 H, Neut % (Auto) 65.8, Lymph % (Auto) 20.5, [place] % (Auto) 10.9 H, Eos % (Auto) 1.3, Baso % (Auto) 0.4, Absolute Neuts (auto) 3.0, Absolute Lymphs (auto) 0.94, Nucleated RBC % 0 06/05/19 05:25: Sodium 140, Potassium 4.1, Chloride 108 H, Carbon Dioxide 28.0, Anion Gap 4 L, BUN 29 H, Creatinine 0.94, Estim Creat Clear Calc 58.45, Est GFR (MDRD) Af Amer 100, Est GFR (MDRD) Non-Af 82, BUN/Creatinine Ratio 30.8 H, Glucose 131 H, Calcium 8.1 L, Total Bilirubin 0.80, AST 19, ALT 40, Alkaline Phosphatase 45, Total Protein 5.9 L, Albumin 3.0 L, Globulin 2.9, Albumin/Globulin Ratio 1.0 06/05/19 06:46: POC Glucose 129 H Current Medications Acetaminophen (Tylenol) 650 mg PO Q6H PRN PRN PRN Reason: Pain Score 1-10/Temp > 100.7 F Last Admin: 06/03/19 20:22 Dose: 650 mg Documented by: Glucagon () 1 mg IM .X1 PRN PRN Reason: Hypoglycemia Dextrose (Dextrose 10%-Water) 250 mls @ 999 mls/hr IV .Q16M PRN; Protocol PRN Reason: HYPOGLYCEMIA Insulin Human Lispro (Humalog Kwikpen (Bkc)) 0 unit SC [facility]; Protocol Last Admin: 06/05/19 06:53 Dose: Not Given Documented by: Magnesium Hydroxide (Milk Of Magnesia) 30 ml PO DAILY PRN PRN Reason: Constipation Meloxicam (Mobic) 15 mg PO DAILY [facility] Last Admin: 06/05/19 08:07 Dose: 15 mg Documented by: Metoprolol Tartrate (Lopressor (Beta Gilbert)) 50 mg PO BID [facility] Last Admin: 06/05/19 08:07 Dose: 50 mg Documented by: Pravastatin Sodium (Pravachol) 80 mg PO QHS [facility] Last Admin: 06/04/19 21:23 Dose: 80 mg Documented by: Prednisone () 40 mg PO DAILY@0800 [facility] Last Admin: 06/05/19 08:06 Dose: 40 mg Documented by: Senna/Docusate Sodium (Senokot-S, Yokasta-Colace) 2 tablet PO DAILY PRN PRN PRN Reason: CONSTIPATION Sodium Chloride () 10 - 40 ml IV UD PRN PRN Reason: SALINE FLUSH Tramadol HCl (Ultram) 50 mg PO TID PRN PRN PRN Reason: Pain Score 6-03/16 Last Admin: 06/04/19 21:25 Dose: 50 mg Documented by: Warfarin Sodium (Coumadin (Pbkc)) 6 mg PO DAILY@1700 [facility] STROKE Vital Signs/Narrative: Vital Signs Temp Pulse Resp BP Pulse Ox 06/05/19 09:15 98.9 F 60 16 155/61 H 95 06/05/19 08:07 60 Medical Necessity - Tobacco Use Smoking Status: Former smoker Tobacco Use: Cigarettes Assessment/Plan All Active Problems (Last Updated 03/17/19 @ 10:31 by Ana Lagos) (HFpEF) heart failure with preserved ejection fraction (Acute) Decubitus ulcer of right buttock, stage 2 (Acute) Traumatic skin ulcer with fat layer exposed (Acute) Cellulitis of lower extremity (Acute) Nonhealing nonsurgical wound with fat layer exposed (Acute) Patient is a 78-year-old gentleman admitted with low back pain with difficulty ambulating 1. Acute on chronic low back pain with difficulty ambulation ~Patient admitted to regular nursing floor currently being managed symptomatically. Requested for PT OT eval. Consult was also placed to high school social studies tutor to assist with discharge planning. As part of patient's management she is scheduled to undergo MRI of the lumbar spine 2. Chronic A. fib ~rate controlled on Coumadin with a subtherapeutic INR of 1.7 Hypertension ~ blood pressure controlled, home medications continued with dose adjustment as needed 4. Dyslipidemia ~patient is on statin therapy, continued at home dose 5. Chronic diastolic congestive heart failure ~With preserved ejection fraction currently stable 6. Obesity with BMI of 42.3 ~Weight loss advised 7. DVT prophylaxis ~Coumadin Advance planning; did discuss with the patient regarding advanced directives as well as CODE STATUS. Did explain the various scenarios involved ( FULL CODE, DNR CCA, DNR CCA with no intubation, and DNR CC and what each meant) patient elected to be DNR CCA no intubation. Order was placed. Time spent on discussion 18 minutes. Code Visit Inpatient E&M: 56459 Subs Hosp L2 Procedures: 36704 Advncd Care Plan 30 Min
--- NOTE | 2019-06-05 11:30 | CASEMGMT ---
LAVELLE DIAZ Face to Face with patient for initial transition planning/care coordination assessment. RN EMILY introduced self and role at [facility]. Patient lying in bed, alert and oriented. Patient willing to participate in assessment and is able to answer all questions appropriately. Care providers, pharmacy, and demographics verified. Patient wishes to discharge home, but is willing to go to SNF if recommended by therapy. SNF list given to patient to review. Patient states he has no further needs or concerns at this time. SW updated regarding potential SNF referral. PCP: Abbie Specialists: None Preferred Pharmacy: [facility] Insurance: [facility] Prescription Benefit: yes Living Will/HPOA: yes Ene Jones HPOA LNOK: Living Arrangements: Patient lives with in single story home with ramp to enter the home. Patient independent prior to hospitalization. Transportation: self/ DME/HHC: Patient has raised toilet seat, cane, walker, nebulizer at home. Patient denies HHC. Disposition Plan: HHC vs SNF pending how patient progresses with therapy. Theresa PACHECON, RN, CM
[2019-06-05] MEDS: Insulin Lispro 100 UNIT/ML INSULN.PEN SC ×3 (11:41→21:41)
[2019-06-05 11:46] LABS: Bedside Glucose 183 mg/dL (70-110)
--- NOTE | 2019-06-05 11:50 | CASEMGMT ---
Social Work Note Per lump room supervisor questions pt has completed LW and HCPOA but hasn't provided copy to [facility] and is able to bring in copies to [facility]. Theresa Barnes HEAVY EQUIPMENT OPERATOR, COMMERCIAL OCEAN CLAMMER
[2019-06-05] MEDS: traMADol 50 MG Tablet PO (11:58)
[2019-06-05] MEDS: LORazepam 1 MG Tablet PO (12:00)
--- NOTE | 2019-06-05 14:08 | CHAPLAIN ---
Type of Pastoral Visit _x__ Initial Visit ___ Follow-up Visit ___ On-call Visit ___ General Patient Visit ___ Spiritual Assessment ___ Family Conference ___ Bereavement ___ Rapid Response ___ Code Blue ___ Other (describe below) Pastoral Care Referral From _x__ Patient ___ Family ___ Nurse ___ Physician ___ Airplane Tube Builder ___ Project Management It Specialist ___ Other (describe below) Sacrament/Intervention _x__ Active listening ___ Anointing ___ Orthodox ___ Bereavement ___ Communion ___ Laura exploration ___ ___ Life review _x__ Prayer ___ Reconciliation ___ Sacrament of Sick _x__ Supportive presence ___ Wedding ___ Other (describe below) Pastoral Comments
[2019-06-05 15:15] VITALS: BP 160/68; PULSE 62; RESP 16; TEMP 37; O2SAT 94
[2019-06-05 21:40] VITALS: BP 127/69; PULSE 61; RESP 18; TEMP 36.8; O2SAT 95
[2019-06-05] MEDS: Pravastatin 80 MG Tablet PO (21:40)
[2019-06-05 21:50] LABS: Bedside Glucose 165 mg/dL (70-110)
[2019-06-06 01:51] LABS: Bedside Glucose 238 mg/dL (70-110)
[2019-06-06 04:57] VITALS: BP 156/67; PULSE 51; RESP 18; TEMP 36.8; O2SAT 96
[2019-06-06 05:34] LABS: Absolute Lymphocyte Count 1.41 X10^3/uL (0.83-4.51); Absolute Neutrophil Count 3.5 X10^3/uL (2.0-7.7); Basophil# 0.03 X10^3/uL; Basophil% 0.5 % (0-1); Eosinophil# 0.09 X10^3/uL; Eosinophils% 1.6 % (0-5); Hematocrit 38.9 % (40-54); Hemoglobin 12.9 g/dL (13.0-16.5); Lymphocyte # 1.41 X10^3/ul (4.0); Mean Corp Hgb Conc 33.2 g/dL (32-36); Mean Corpuscular Hgb 32.3 pg (27.0-32.0); Mean Corpuscular Volume 97.3 fL (80-94); Mean Platelet Vol. 9.8 fl (6.2-12.0); Monocyte# 0.56 X10^3/uL; Monocyte% 9.9 % (0-10); NRBC Flagged by Analyzer 0 % (0-5); Neutrophil # 3.45 X10^3/uL (2.7-7.7); Neutrophil % 61.4 % (47-70); Platelet Count 138 K/mm3 (150-450); RBC Distribution Width CV 13.5 % (11.6-14.6); RBC Distribution Width SD 48.1 fl (35.1-43.9); White Blood Count 5.6 K/mm3 (4.4-11.0)
[2019-06-06 05:48] LABS: International Normalized Ratio 1.7; Prothrombin Time (Protime)PT. 20.2 SECONDS (11.7-14.9)
[2019-06-06 05:54] LABS: Anion Gap 6 (5-15); BUN 28 mg/dL (7-18); BUN/Creat Ratio 27.7 RATIO (10-20); Calcium,Total 8.2 mg/dL (8.5-10.1); Chloride 107 mmol/L (98-107); Creatinine, Serum 1.01 mg/dL (0.70-1.30); EST Glomerular Filtration Rate 76 mL/min (>60); Est Glom Filt Rate - Afr Amer 92 mL/min (>60); Estimated Creatinine Clearance 54.39 ml/min; Glucose 117 mg/dL (74-106); Magnesium 2.1 mg/dL (1.6-2.6); Potassium 4.2 mmol/L (3.5-5.1); Sodium Level 141 mmol/L (136-145)
[2019-06-06 06:51] LABS: Bedside Glucose 105 mg/dL (70-110)
[2019-06-06] MEDS: predniSONE 20 MG Tablet 40 MG PO (07:42)
--- NOTE | 2019-06-06 08:53 | PCM.PN.HOSP ---
Reason for Visit: Low back pain Subjective: Seen still complains of low back pain. Still needing 2 person assist while ambulating. Consult was placed to case management. Currently assisting with disposition possibly to long term facility when patient is medically stable Objective: GENERAL: cooperative HEENT: Atraumatic; EYES; Anicteric, Normal Conjunctiva NECK; supple, normal thyroid, RESPIRATORY: Diminished to auscultation CARDIOVASCULAR: Regular S1 S2, GI: soft, normoactive bowel sounds, : No Renal angle tenderness; EXTREMITIES: No edema, no clubbing, MUSCULOSKELETAL: no muscle waisting NEURO: Awake; no lateralizing signs. SKIN: No Rash PSYCH; Flat affect Vitals/I&O's: Vital Signs Temp Pulse Resp BP Pulse Ox 98.2 F 51 L 18 156/67 H 96 06/06/19 04:57 06/06/19 04:57 06/06/19 04:57 06/06/19 04:57 06/06/19 04:57 Oxygen Delivery Method Room Air Weight: 118.8 kg Body Mass Index (BMI) 42.3 Intake and Output for Last 24 Hours 06/04/19 06/05/19 06/06/19 23:59 23:59 23:59 Intake Total 700 / 1100 750 / 1050 300 / 300 Output Total 950 / 1950 1475 / 1725 650 / 650 Balance -250 / -850 -725 / -675 -350 / -350 Laboratory Results 06/05/19 11:39: POC Glucose 183 H 06/05/19 17:38: POC Glucose 238 H 06/05/19 21:38: POC Glucose 165 H 06/06/19 05:03: PT 20.2 H, INR 1.7 06/06/19 05:03: WBC 5.6, RBC 4.00 L, Hgb 12.9 L, Hct 38.9 L, MCV 97.3 H, MCH 32.3 H, MCHC 33.2, RDW Std Deviation 48.1 H, RDW Coeff of Porter 13.5, Plt Count 138 L, MPV 9.8, Immature Gran % (Auto) 1.600 H, Neut % (Auto) 61.4, Lymph % (Auto) 25.0, [place] % (Auto) 9.9, Eos % (Auto) 1.6, Baso % (Auto) 0.5, Absolute Neuts (auto) 3.5, Absolute Lymphs (auto) 1.41, Nucleated RBC % 0 06/06/19 05:03: Sodium 141, Potassium 4.2, Chloride 107, Carbon Dioxide 28.0, Anion Gap 6, BUN 28 H, Creatinine 1.01, Estim Creat Clear Calc 54.39, Est GFR (MDRD) Af Amer 92, Est GFR (MDRD) Non-Af 76, BUN/Creatinine Ratio 27.7 H, Glucose 117 H, Calcium 8.2 L, Magnesium 2.1 06/06/19 06:36: POC Glucose 105 Current Medications Acetaminophen (Tylenol) 650 mg PO Q6H PRN PRN PRN Reason: Pain Score 1-10/Temp > 100.7 F Last Admin: 06/03/19 20:22 Dose: 650 mg Documented by: Glucagon () 1 mg IM .X1 PRN PRN Reason: Hypoglycemia Dextrose (Dextrose 10%-Water) 250 mls @ 999 mls/hr IV .Q16M PRN; Protocol PRN Reason: HYPOGLYCEMIA Insulin Human Lispro (Humalog Kwikpen (Bkc)) 0 unit SC [facility]; Protocol Last Admin: 06/06/19 06:47 Dose: Not Given Documented by: Magnesium Hydroxide (Milk Of Magnesia) 30 ml PO DAILY PRN PRN Reason: Constipation Meloxicam (Mobic) 15 mg PO DAILY [facility] Last Admin: 06/05/19 08:07 Dose: 15 mg Documented by: Metoprolol Tartrate (Lopressor (Beta Gilbert)) 50 mg PO BID [facility] Last Admin: 06/05/19 21:40 Dose: 50 mg Documented by: Pravastatin Sodium (Pravachol) 80 mg PO QHS [facility] Last Admin: 06/05/19 21:40 Dose: 80 mg Documented by: Prednisone () 40 mg PO DAILY@0800 [facility] Last Admin: 06/06/19 07:42 Dose: 40 mg Documented by: Senna/Docusate Sodium (Senokot-S, Yokasta-Colace) 2 tablet PO DAILY PRN PRN PRN Reason: CONSTIPATION Sodium Chloride () 10 - 40 ml IV UD PRN PRN Reason: SALINE FLUSH Tramadol HCl (Ultram) 50 mg PO TID PRN PRN PRN Reason: Pain Score 6-10/10 Last Admin: 06/05/19 11:58 Dose: 50 mg Documented by: Warfarin Sodium (Coumadin (Pbkc)) 6 mg PO DAILY@1700 [facility] Last Admin: 06/05/19 17:43 Dose: 6 mg Documented by: STROKE Vital Signs/Narrative: Vital Signs Temp Pulse Resp BP Pulse Ox 06/06/19 04:57 98.2 F 51 L 18 156/67 H 96 Medical Necessity - Tobacco Use Smoking Status: Former smoker Tobacco Use: Cigarettes Assessment/Plan All Active Problems (Last Updated 03/17/19 @ 10:31 by Ana Lagos) (HFpEF) heart failure with preserved ejection fraction (Acute) Decubitus ulcer of right buttock, stage 2 (Acute) Traumatic skin ulcer with fat layer exposed (Acute) Cellulitis of lower extremity (Acute) Nonhealing nonsurgical wound with fat layer exposed (Acute) Patient is a 78-year-old gentleman admitted with low back pain with difficulty ambulating 1. Acute on chronic low back pain with difficulty ambulation ~Patient admitted to regular nursing floor currently being managed symptomatically. Requested for PT OT eval. Consult was also placed to social service manager to assist with discharge planning. ?06/06/2019: MRI obtained the day prior demonstrated spinal stenosis. MRI did demonstrate the presence of A 1.13 cm cyst is present in the left posterior epidural space of L3-L4 resulting in mass effect on the thecal sac and nerve roots which is favored to originated from the facet joint. Currently undergoing PT OT. Consult also placed to social service manager as stated above plan is for patient to be discharged to long term facility when medically stable 2. Chronic A. fib ~rate controlled on Coumadin with a subtherapeutic INR of 1.7 ?06/06/2019: INR remains at 1.7. Hypertension ~ blood pressure controlled, home medications continued with dose adjustment as needed 4. Dyslipidemia ~patient is on statin therapy, continued at home dose 5. Chronic diastolic congestive heart failure ~With preserved ejection fraction currently stable 6. Obesity with BMI of 42.3 ~Weight loss advised 7. DVT prophylaxis ~Coumadin Clinical Impression(s) from Imaging Studies Lumbar Spine MRI 06/05/19 05:55 IMPRESSION: 1. Moderate posterior disc space narrowing is present at the T11-T12 level and associated with subligamentous extruded disc material that is above and below the disc space and contributes to moderate central canal stenosis and compression anterior aspect of the cord. The cord is also slightly flattened/atrophied at this level. 2. L3-L4 mild to moderate central canal stenosis is present secondary to facet joint and ligamenta flava hypertrophy. 3. A 1.13 cm cyst is present in the left posterior epidural space of L3-L4 resulting in mass effect on the thecal sac and nerve roots which is favored to originated from the facet joint. Electronically Signed: Yogesh Lowe MD at 16:26 EST , Service support , Code Visit Inpatient E&M: 10916 Subs Hosp L2
[2019-06-06 08:54] VITALS: BP 158/79; PULSE 51; RESP 18; TEMP 37.1; O2SAT 96
[2019-06-06 09:45] VITALS: BP 158/79; PULSE 51
[2019-06-06] MEDS: Metoprolol Tartrate 50 MG Tablet PO ×2 (09:45→22:27)
[2019-06-06] MEDS: Meloxicam 15 MG Tablet PO (09:45)
[2019-06-06 11:35] LABS: Bedside Glucose 157 mg/dL (70-110)
--- NOTE | 2019-06-06 11:40 | CASEMGMT ---
Social Work Note JUNIOR met with pt to confirm discharge plans. Pt states he would like to stay at [facility] for rehab. JUNIOR educated pt on TCU and RU at [facility]. JUNIOR informed pt that this worker is not sure if TCU has any beds available and that this worker would have to check with RU to determine if pt meets criteria for RU. Pt states that if he is not able to stay at [facility] then his second choice is [facility] and third choice is [facility]. JUNIOR placed a call to referral line and provided referral for TCU vs. RU. JUNIOR received call from [facility] stating RU is able to accept pt tomorrow. JUNIOR updated pt. Green sheet on chart. Plan: RU tomorrow Theresa Barnes [employer], [employer]IGGING UP MAN
[2019-06-06] MEDS: Insulin Lispro 100 UNIT/ML INSULN.PEN SC ×3 (11:50→22:29)
--- NOTE | 2019-06-06 14:33 | CHAPLAIN ---
Type of Pastoral Visit ___ Initial Visit _x__ Follow-up Visit ___ On-call Visit ___ General Patient Visit ___ Spiritual Assessment ___ Family Conference ___ Bereavement ___ Rapid Response ___ Code Blue ___ Other (describe below) Pastoral Care Referral From _x__ Patient ___ Family ___ Nurse ___ Physician ___ Custom Designer ___ Pelletizer ___ Other (describe below) Sacrament/Intervention _x__ Active listening ___ Anointing ___ Voodoo ___ Bereavement ___ Communion ___ Laura exploration ___ _x__ Life review _x__ Prayer ___ Reconciliation ___ Sacrament of Sick ___ Supportive presence ___ Wedding ___ Other (describe below) Pastoral Comments
[2019-06-06 15:23] VITALS: BP 158/70; PULSE 50; RESP 18; TEMP 37.1; O2SAT 98
[2019-06-06 16:20] LABS: Bedside Glucose 209 mg/dL (70-110)
[2019-06-06 22:00] VITALS: BP 161/67; PULSE 50; RESP 18; TEMP 36.7; O2SAT 100
[2019-06-06 22:27] VITALS: BP 161/47; PULSE 50
[2019-06-06] MEDS: Pravastatin 80 MG Tablet PO (22:27)
[2019-06-06 23:01] LABS: Bedside Glucose 161 mg/dL (70-110)
[2019-06-07 05:00] VITALS: BP 153/64; PULSE 50; RESP 16; TEMP 37; O2SAT 97
[2019-06-07 06:40] LABS: Bedside Glucose 117 mg/dL (70-110)
[2019-06-07 06:42] LABS: Absolute Lymphocyte Count 1.43 X10^3/uL (0.83-4.51); Absolute Neutrophil Count 3.7 X10^3/uL (2.0-7.7); Basophil# 0.03 X10^3/uL; Basophil% 0.5 % (0-1); Eosinophil# 0.11 X10^3/uL; Eosinophils% 1.8 % (0-5); Hematocrit 40.2 % (40-54); Lymphocyte # 1.43 X10^3/ul (4.0); Mean Corp Hgb Conc 32.3 g/dL (32-36); Mean Corpuscular Hgb 31.6 pg (27.0-32.0); Mean Corpuscular Volume 97.6 fL (80-94); Mean Platelet Vol. 9.9 fl (6.2-12.0); Monocyte# 0.59 X10^3/uL; Monocyte% 9.9 % (0-10); NRBC Flagged by Analyzer 0 % (0-5); Neutrophil # 3.69 X10^3/uL (2.7-7.7); Platelet Count 131 K/mm3 (150-450); RBC Distribution Width CV 13.5 % (11.6-14.6); RBC Distribution Width SD 48.6 fl (35.1-43.9); Red Blood Count 4.12 M/mm3 (4.6-6.2)
[2019-06-07 06:45] LABS: International Normalized Ratio 1.8; Prothrombin Time (Protime)PT. 20.6 SECONDS (11.7-14.9)
[2019-06-07 07:02] LABS: Anion Gap 5 (5-15); BUN 31 mg/dL (7-18); BUN/Creat Ratio 27.2 RATIO (10-20); Calcium,Total 8.8 mg/dL (8.5-10.1); Chloride 111 mmol/L (98-107); Creatinine, Serum 1.14 mg/dL (0.70-1.30); EST Glomerular Filtration Rate 66 mL/min (>60); Est Glom Filt Rate - Afr Amer 80 mL/min (>60); Estimated Creatinine Clearance 48.19 ml/min; Glucose 117 mg/dL (74-106); Potassium 4.6 mmol/L (3.5-5.1); Sodium Level 145 mmol/L (136-145)
--- NOTE | 2019-06-07 08:04 | DCINST_ITS ---
You will use the following diet at home:: Calorie/Carbohydrate Controlled (specify 1200, 1400, etc) - 1800 Your food should be the consistency of: Regular Discharge Activity: No Restrictions, May not drive while taking narcotic pain medications. Allergies/Adverse Reactions: Allergies naproxen [From Naprosyn] Allergy (Unknown, Verified 06/03/19 15:36) Hives codeine Allergy (Verified 06/03/19 15:36) Hives gabapentin Allergy (Verified 06/03/19 15:36) Hives hydrocodone [From Vicodin] Allergy (Verified 06/03/19 15:36) Hives levofloxacin [From Levaquin] Allergy (Verified 06/03/19 15:36) Hives lisinopril Allergy (Verified 06/03/19 15:36) Hives morphine Allergy (Verified 06/03/19 15:36) Hives sertraline [From Zoloft] Allergy (Verified 06/03/19 15:36) Hives simvastatin [From Zocor] Allergy (Verified 06/03/19 15:36) Hives sulfamethoxazole Allergy (Verified 06/03/19 15:36) Hives Medications to take at Discharge Metoprolol Tartrate [Lopressor (beta filiberto)] 50 mg PO BID 05/20/18 Pravastatin [Pravachol] 80 mg PO QHS 05/20/18 metFORMIN HCl [Glucophage] 500 mg PO DAILY 05/20/18 Multivitamin [Multiple Vitamins] 1 ea PO DAILY 08/19/18 Warfarin Sodium [Coumadin] 1 mg PO DAILY 02/10/19 Warfarin Sodium [Coumadin] 5 mg PO DAILY 02/10/19 Meloxicam 15 mg PO DAILY 06/03/19 Prednisone 20 mg PO DAILY 06/03/19 Acetaminophen [Tylenol Tablet] 650 mg PO Q6H PRN PRN tab 06/07/19 Insulin Lispro [Humalog KwikPen] See Protocol SUBCUT ACHS insuln.pen 06/07/19 Magnesium Hydroxide [Milk Of Magnesia] 30 ml PO DAILY PRN udc 06/07/19 Senna/Docusate Sodium [Senokot-S] 2 tab PO DAILY PRN PRN tab 06/07/19 traMADol [Ultram] 50 mg PO TID PRN PRN tab 06/07/19 Primary Care Physician: Brooks,Chiki, MD [Primary Care Provider] - Please follow up with your Primary Care Physician in: in 2-3 weeks Test Results: Test results from this visit will be discussed in further detail at your follow- up appointment, if applicable. Proposed Discharge Date: 06/07/19
--- NOTE | 2019-06-07 08:06 | DS.PCM_ITS ---
Discharge Date and Diagnosis Date of Admission: 06/03/19 Date of Discharge: 06/07/19 - Primary Discharge Diagnosis Low back pain secondary to degenerative joint disease - Secondary Discharge Diagnosis Chronic Problems (Last Updated 03/17/19 @ 10:31 by Ana Lagos) On amiodarone therapy (Chronic) History of right and left heart catheterization (Chronic 02/14/19) Normal Left Ventricular systolic function; LVEF: by LV gram 65 %; Elevated Left Ventricular End Diastolic Pressure; Non obstructive coronary arteries; The patient has pulmonary hypertension which is moderate. Afib (Chronic) Diabetes type 2, controlled (Chronic) Chronic pain disorder (Chronic) Osteoarthritis (Chronic) detention (current) use of anticoagulants (Chronic) Edema of lower extremity (Chronic) Peripheral vascular disease of lower extremity with ulceration (Chronic) Hospital Course and Treatment Imaging Results: Clinical Impression(s) from Imaging Studies Foot X-Ray 06/03/19 16:00 IMPRESSION: 1. No fracture or malalignment. 2. Degenerative changes. Electronically Signed: Familia Arrieta MD (Brooks) at 16:34 EST , Service support , Lumbar Spine X-Ray 06/03/19 16:00 IMPRESSION: No demonstrate compression fracture. Electronically Signed: Familia Arrieta MD (Brooks) at 16:35 EST , Service support , Lumbar Spine MRI 06/05/19 05:55 IMPRESSION: 1. Moderate posterior disc space narrowing is present at the T11-T12 level and associated with subligamentous extruded disc material that is above and below the disc space and contributes to moderate central canal stenosis and compression anterior aspect of the cord. The cord is also slightly flattened/atrophied at this level. 2. L3-L4 mild to moderate central canal stenosis is present secondary to facet joint and ligamenta flava hypertrophy. 3. A 1.13 cm cyst is present in the left posterior epidural space of L3-L4 resulting in mass effect on the thecal sac and nerve roots which is favored to originated from the facet joint. Electronically Signed: Yogesh Lowe MD at 16:26 EST , Service support , Consultations 06/03/19 19:27 Consult: Onc/Wound/open winder Routine Comment: Reason for Consult:: Skin tears b/l forearms Operations: None Summary of Care Provided: Patient is a 78-year-old gentleman admitted with low back pain with difficulty ambulating 1. Acute on chronic low back pain with difficulty ambulation ~Patient admitted to regular nursing floor currently being managed symptomatically. Requested for PT OT eval. Consult was also placed to social media job titles to assist with discharge planning. ?06/06/2019: MRI obtained the day prior demonstrated spinal stenosis. MRI did demonstrate the presence of A 1.13 cm cyst is present in the left posterior epidural space of L3-L4 resulting in mass effect on the thecal sac and nerve roots which is favored to originated from the facet joint. Currently undergoing PT OT. Consult also placed to social media job titles as stated above plan is for patient to be discharged to residential facility when medically stable 06/07/2019; patient was discharged to the inpatient rehab unit 2. Chronic A. fib ~rate controlled on Coumadin with a subtherapeutic INR of 1.7 ?06/06/2019: INR remains at 1.7. 06/07/2019; patient INR at the time of discharge was 1.8. 3. Hypertension ~ blood pressure controlled, home medications continued with dose adjustment as needed 4. Dyslipidemia ~patient is on statin therapy, continued at home dose 5. Chronic diastolic congestive heart failure ~With preserved ejection fraction currently stable 6. Obesity with BMI of 42.3 ~Weight loss advised 7. DVT prophylaxis ~Coumadin Objective: GENERAL: cooperative HEENT: Atraumatic; EYES; Anicteric, Normal Conjunctiva NECK; supple, normal thyroid, RESPIRATORY: Diminished to auscultation CARDIOVASCULAR: Regular S1 S2, GI: soft, normoactive bowel sounds, : No Renal angle tenderness; EXTREMITIES: No edema, no clubbing, MUSCULOSKELETAL: no muscle waisting NEURO: Awake; no lateralizing signs. SKIN: No Rash PSYCH; Flat affect - Physical Exam Vitals/I&O's: Vital Signs Temp Pulse Resp BP Pulse Ox 98.6 F 50 L 16 153/64 H 97 06/07/19 05:00 06/07/19 05:00 06/07/19 05:00 06/07/19 05:00 06/07/19 05:00 Oxygen Delivery Method Room Air Weight: 118.8 kg Body Mass Index (BMI) 42.3 Intake and Output for Last 24 Hours 06/05/19 06/06/19 06/07/19 23:59 23:59 23:59 Intake Total 750 / 1050 2300 / 2800 725 / 725 Output Total 1475 / 1725 1700 / 2375 1225 / 1225 Balance -725 / -675 600 / 425 -500 / -500 Laboratory Results 06/06/19 11:28: POC Glucose 157 H 06/06/19 16:12: POC Glucose 209 H 06/06/19 22:25: POC Glucose 161 H 06/07/19 06:25: PT 20.6 H, INR 1.8 06/07/19 06:25: WBC 6.0, RBC 4.12 L, Hgb 13.0, Hct 40.2, MCV 97.6 H, MCH 31.6, MCHC 32.3, RDW Std Deviation 48.6 H, RDW Coeff of Porter 13.5, Plt Count 131 L, MPV 9.9, Immature Gran % (Auto) 1.800 H, Neut % (Auto) 62.0, Lymph % (Auto) 24.0, [place] % (Auto) 9.9, Eos % (Auto) 1.8, Baso % (Auto) 0.5, Absolute Neuts (auto) 3.7, Absolute Lymphs (auto) 1.43, Nucleated RBC % 0 06/07/19 06:25: Sodium 145, Potassium 4.6, Chloride 111 H, Carbon Dioxide 29.0, Anion Gap 5, BUN 31 H, Creatinine 1.14, Estim Creat Clear Calc 48.19, Est GFR (MDRD) Af Amer 80, Est GFR (MDRD) Non-Af 66, BUN/Creatinine Ratio 27.2 H, Glucose 117 H, Calcium 8.8 06/07/19 06:29: POC Glucose 117 H Current Medications Acetaminophen (Tylenol) 650 mg PO Q6H PRN PRN PRN Reason: Pain Score 1-10/Temp > 100.7 F Last Admin: 06/03/19 20:22 Dose: 650 mg Documented by: Glucagon () 1 mg IM .X1 PRN PRN Reason: Hypoglycemia Dextrose (Dextrose 10%-Water) 250 mls @ 999 mls/hr IV .Q16M PRN; Protocol PRN Reason: HYPOGLYCEMIA Insulin Human Lispro (Humalog Kwikpen (Bkc)) 0 unit SC ACHS [facility]; Protocol Last Admin: 06/07/19 06:31 Dose: Not Given Documented by: Magnesium Hydroxide (Milk Of Magnesia) 30 ml PO DAILY PRN PRN Reason: Constipation Meloxicam (Mobic) 15 mg PO DAILY [facility] Last Admin: 06/06/19 09:45 Dose: 15 mg Documented by: Metoprolol Tartrate (Lopressor (Beta Gilbert)) 50 mg PO BID [facility] Last Admin: 06/06/19 22:27 Dose: 50 mg Documented by: Pravastatin Sodium (Pravachol) 80 mg PO QHS [facility] Last Admin: 06/06/19 22:27 Dose: 80 mg Documented by: Prednisone () 40 mg PO DAILY@0800 [facility] Last Admin: 06/06/19 07:42 Dose: 40 mg Documented by: Senna/Docusate Sodium (Senokot-S, Yokasta-Colace) 2 tablet PO DAILY PRN PRN PRN Reason: CONSTIPATION Sodium Chloride () 10 - 40 ml IV UD PRN PRN Reason: SALINE FLUSH Tramadol HCl (Ultram) 50 mg PO TID PRN PRN PRN Reason: Pain Score 6-10/10 Last Admin: 06/05/19 11:58 Dose: 50 mg Documented by: Warfarin Sodium (Coumadin (Pbkc)) 6 mg PO DAILY@1700 [facility] Last Admin: 06/06/19 16:44 Dose: 6 mg Documented by: Discharge Diet: 1800 Calorie Control Diet Discharge Activity: No Restrictions, May not drive while taking narcotic pain medications. Home Medications: Medications to take at Discharge Metoprolol Tartrate [Lopressor (beta gilbert)] 50 mg PO BID 05/20/18 Pravastatin [Pravachol] 80 mg PO QHS 05/20/18 metFORMIN HCl [Glucophage] 500 mg PO DAILY 05/20/18 Multivitamin [Multiple Vitamins] 1 ea PO DAILY 08/19/18 Warfarin Sodium [Coumadin] 1 mg PO DAILY 02/10/19 Warfarin Sodium [Coumadin] 5 mg PO DAILY 02/10/19 Meloxicam 15 mg PO DAILY 06/03/19 Prednisone 20 mg PO DAILY 06/03/19 Acetaminophen [Tylenol Tablet] 650 mg PO Q6H PRN PRN tab 06/07/19 Insulin Lispro [Humalog KwikPen] See Protocol SUBCUT ACHS insuln.pen 06/07/19 Magnesium Hydroxide [Milk Of Magnesia] 30 ml PO DAILY PRN udc 06/07/19 Senna/Docusate Sodium [Senokot-S] 2 tab PO DAILY PRN PRN tab 06/07/19 traMADol [Ultram] 50 mg PO TID PRN PRN tab 06/07/19 Primary Care Physician: Chiki Brooks MD [Primary Care Provider] - Please follow up with your Primary Care Physician in: in 2-3 weeks Disposition: Inpt Rehab Unit/Facility Minutes spent on discharge:: 35 Patient Condition:: Stable Medical Necessity - Tobacco Use Smoking Status: Former smoker Tobacco Use: Cigarettes Meaningful Use Info Meaningful Use Diagnoses (Choose all that apply): None applicable Code Visit Inpatient E&M: 63989 Disch Hosp
[2019-06-07] MEDS: predniSONE 20 MG Tablet 40 MG PO (08:57)
[2019-06-07 09:02] VITALS: BP 129/53; PULSE 50; RESP 16; TEMP 36.8; O2SAT 94
[2019-06-07 09:14] VITALS: BP 129/53; PULSE 50
[2019-06-07] MEDS: Metoprolol Tartrate 50 MG Tablet PO (09:14)
[2019-06-07] MEDS: Meloxicam 15 MG Tablet PO (09:14)
[2019-06-07 11:26] LABS: Bedside Glucose 125 mg/dL (70-110)
--- NOTE | 2019-06-07 12:03 | NURSING ---
report called to rehab
== END 2019-06-07 13:25 | DRG 552 ==
LOC: ED 16:16 → MS3 18:58
PROVIDERS: Internal Medicine; Admitting Provider Family Medicine; Emergency Provider Emergency Medicine; Family Provider Family Medicine; PCP Family Medicine; Visit Provider Internal Medicine
DX: M47.816 Spondylosis without myelopathy or radiculopathy, lumbar region (principal); I48.20 Chronic atrial fibrillation, unspecified; I50.32 Chronic diastolic (congestive) heart failure; Z68.41 Body mass index [BMI] 40.0-44.9, adult; I11.0 Hypertensive heart disease with heart failure; E78.5 Hyperlipidemia, unspecified; G89.29 Other chronic pain; R26.2 Difficulty in walking, not elsewhere classified; Z79.01 Long term (current) use of anticoagulants; Z66 Do not resuscitate; Z79.84 Long term (current) use of oral hypoglycemic drugs; E66.01 Morbid (severe) obesity due to excess calories; I27.20 Pulmonary hypertension, unspecified; S51.812A Laceration without foreign body of left forearm, initial encounter; S51.811A Laceration without foreign body of right forearm, initial encounter; W18.30XA Fall on same level, unspecified, initial encounter
CPT/HCPCS: 36415; 72100; 72148; 73630; 80048; 80053; 81001; 82962; 83735; 85025; 85610; 97162; 97165; 97530; 97535; 99285

== ENCOUNTER 2019-06-07 13:25 | Inpatient (IN) | payer MEDICARE, OTHER, SELFPAY ==
[2019-06-03 19:28] VITALS: BMI 42.3
[2019-06-07 13:54] VITALS: BP 136/69; PULSE 54; RESP 18; TEMP 36.6; O2SAT 94
[2019-06-07 16:20] VITALS: BMI 40.8
[2019-06-07 16:26] LABS: Bedside Glucose 190 mg/dL (70-110)
[2019-06-07] MEDS: Insulin Lispro 100 UNIT/ML INSULN.PEN SC ×2 (18:00→22:05)
[2019-06-07 19:25] VITALS: BP 149/82; PULSE 55; RESP 16; TEMP 37.2; O2SAT 94
[2019-06-07 22:00] VITALS: PULSE 50
[2019-06-07] MEDS: Pravastatin 80 MG Tablet PO (22:06)
[2019-06-07] MEDS: Senna/Docusate Sodium 1 Tablet 2 TABLET PO (22:06)
[2019-06-07 22:21] LABS: Bedside Glucose 186 mg/dL (70-110)
[2019-06-07 22:25] VITALS: BP 149/82; PULSE 50
--- NOTE | 2019-06-07 22:25 | NURSING ---
DR CLARITA DACOSTA NOTIFIED OF PT'S PULSE RATE. ORDERED TO HOLD THIS DOSE OF LOPRESSOR AND HAVE PHYSICIAN REEVALUATE IN AM.
[2019-06-08] VITALS (7 sets, daily range): BP systolic 140–166; BP diastolic 71–73; PULSE 48–52; RESP 18; TEMP 36.6–36.9; O2SAT 96–97
[2019-06-08 07:01] LABS: Bedside Glucose 107 mg/dL (70-110)
[2019-06-08] MEDS: Multivitamins,Therapeutic Tablet 1 TABLET PO (08:02)
[2019-06-08] MEDS: predniSONE 20 MG Tablet PO (08:02)
[2019-06-08] MEDS: Senna/Docusate Sodium 1 Tablet 2 TABLET PO ×2 (08:02→21:44)
[2019-06-08] MEDS: metFORMIN HCl 500 MG Tablet PO (08:02)
[2019-06-08] MEDS: traMADol 50 MG Tablet PO (10:00)
--- NOTE | 2019-06-08 10:00 | NURSING ---
Pt apical pulse 49 bpm. Scheduled Lopressor held with new parameters to be held if pulse rate is <50 bpm.
--- NOTE | 2019-06-08 11:24 | HP.PCM_ITS ---
Problem List (1) Bradycardia Status: Chronic (2) Morbid obesity Status: Chronic (3) Lumbar canal stenosis Status: Chronic (4) On amiodarone therapy Status: Chronic (5) History of right and left heart catheterization Status: Chronic Comment: Normal Left Ventricular systolic function; LVEF: by LV gram 65 %; Elevated Left Ventricular End Diastolic Pressure; Non obstructive coronary arteries; The patient has pulmonary hypertension which is moderate. 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 (17) Thrombocytopenia Status: Acute (18) Subtherapeutic international normalized ratio (INR) Status: Acute (19) Hypogonadism Status: Chronic (20) Obstructive sleep apnea Status: Chronic Comment: not compliant with CPAP History of Present Illness Date of Admission: 06/07/19 Chief Complaint: Debility due to acute exacerbation of chronic back pain with falls The pt is a 78-year-old male with a PMH of diabetes mellitus type 2, morbid obesity, atrial fibrillation, chronic anticoagulation with warfarin, hypogonadism, bradycardia, diastolic congestive heart failure, traumatic ulceration of the lower extremity secondary to a fall, chronic pain disorder, hyperlipidemia, pulmonary hypertension and osteoarthritis admitted to the Inpatient rehab unit at [facility] on 06/07/2019 [] for debility secondary to acute exacerbation of chronic back pain with recent falls and inability to ambulate secondary to pain for greater than 3 hours of therapy daily with a goal of returning home at or near prior level of independence. The patient lives at home with his spouse and has no steps. there is a ramp entry. The patient was independent with ADL's, mobility and driving prior to hospitalization. Past Medical History Past Medical History (Chronic Problems): Chronic Problems (Last Updated 03/17/19 @ 10:31 by Ana Lagos) Bradycardia (Chronic) Morbid obesity (Chronic) Lumbar canal stenosis (Chronic) Hypogonadism (Chronic) Obstructive sleep apnea (Chronic) not compliant with CPAP On amiodarone therapy (Chronic) History of right and left heart catheterization (Chronic 02/14/19) Normal Left Ventricular systolic function; LVEF: by LV gram 65 %; Elevated Left Ventricular End Diastolic Pressure; Non obstructive coronary arteries; The patient has pulmonary hypertension which is moderate. 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 Allergies naproxen [From Naprosyn] Allergy (Unknown, Verified 06/03/19 15:36) Hives codeine Allergy (Verified 06/03/19 15:36) Hives gabapentin Allergy (Verified 06/03/19 15:36) Hives hydrocodone [From Vicodin] Allergy (Verified 06/03/19 15:36) Hives levofloxacin [From Levaquin] Allergy (Verified 06/03/19 15:36) Hives lisinopril Allergy (Verified 06/03/19 15:36) Hives morphine Allergy (Verified 06/03/19 15:36) Hives sertraline [From Zoloft] Allergy (Verified 06/03/19 15:36) Hives simvastatin [From Zocor] Allergy (Verified 06/03/19 15:36) Hives sulfamethoxazole Allergy (Verified 06/03/19 15:36) Hives Home Medications: Ambulatory Orders Medication Instructions Recorded Metoprolol Tartrate [Lopressor 50 mg PO BID 05/20/18 (beta gilbert)] Pravastatin [Pravachol] 80 mg PO QHS 05/20/18 metFORMIN HCl [Glucophage] 500 mg PO DAILY 05/20/18 Multivitamin [Multiple Vitamins] 1 ea PO DAILY 08/19/18 Warfarin Sodium [Coumadin] 1 mg PO DAILY 02/10/19 Warfarin Sodium [Coumadin] 5 mg PO DAILY 02/10/19 Meloxicam 15 mg PO DAILY 06/03/19 Prednisone 20 mg PO DAILY 06/03/19 Acetaminophen [Tylenol Tablet] 650 mg PO Q6H PRN PRN tab 06/07/19 Insulin Lispro [Humalog KwikPen] See Protocol SUBCUT ACHS 06/07/19 Magnesium Hydroxide [Milk Of 30 ml PO DAILY PRN udc 06/07/19 Magnesia] Senna/Docusate Sodium [Senokot-S] 2 tab PO DAILY PRN PRN tab 06/07/19 traMADol [Ultram] 50 mg PO TID PRN PRN tab 06/07/19 Surgical History: Surgical History (Last Reviewed 06/08/19 @ 12:38 by Kaitlynn Boyle DO) History of right and left heart catheterization (Chronic) Onset Date: 02/14/19 Z98.890 Normal Left Ventricular systolic function; LVEF: by LV gram 65 %; Elevated Left Ventricular End Diastolic Pressure; Non obstructive coronary arteries; The patient has pulmonary hypertension which is moderate. History of total replacement of both hip joints Z96.643 Surgical History: - - Bilateral carpal tunnel surgery, repair of umbilical hernia, tonsils and adenoidectomy Lives: Spouse/ Significant Other Smoking Status: Former smoker - quit in 1981 Tobacco Use: Non-smoker Alcohol: Rare - used to drink heavily but quit 40 years ago Drugs: None - *Family History Maternal History Items: Hypertension, - - no CAD Review of Systems Constitutional: Denies: Chills, Fever, Weight Change Eyes: Denies: Blurred vision HEENT: Denies: Head Aches, Sinus Congestion, Sinus Drainage Cardiovascular: Denies: Chest Pain, Edema, Light Headedness, Palpitations Respiratory: Reports: Shortness of breath upon exertion, - - not wearing CPAP at home. Denies: Cough, Hemoptysis, Shortness of breath at rest, Sputum production Gastrointestinal: Denies: Abdominal Pain, Constipation, Diarrhea, Nausea, Vomiting Genitourinary: Denies: Dysuria, Incontinence Musculoskeletal: Reports: Back Pain. Denies: Joint Pain, Joint Tenderness Skin: Denies: Jaundice, Rash, Wounds Neurological: Denies: Focal weakness, Numbness, Tingling, Tremor, Seizures Psychiatric: Denies: Anxiety, Depression, Homicidal Ideations, Suicidal Ideations Endocrine: Denies: Hx of Thyroiditis Hematologic/ Lymphatic: Denies: Easy Bruising, Easy Bleeding, Hx of blood clot VTE Information - Inpt Only VTE Present on Admission: No VTE Mechan Device Prophylaxis: Knee High FRANCI Hose VTE Pharm Prophylaxis ordered?: No Reason prophylaxis not ordered:: Treatment Not Indicated - he is on therapeutic Warfarin for AF Patient Problems: Active and Suspected Problems (Last Updated 03/17/19 @ 10:31 by Ana Lagos) Thrombocytopenia (Acute) Subtherapeutic international normalized ratio (INR) (Acute) - Physical Exam Vitals/I&O's: Vital Signs Temp Pulse Resp BP Pulse Ox 97.9 F 49 L 18 145/72 H 97 06/08/19 07:57 06/08/19 10:13 06/08/19 07:57 06/08/19 07:57 06/08/19 07:57 Oxygen Delivery Method Room Air Weight: 253 lb Body Mass Index (BMI) 40.8 Intake and Output for Last 24 Hours 06/06/19 06/07/19 06/08/19 23:59 23:59 23:59 Intake Total 300 / 300 Output Total 350 / 350 Balance -350 / -350 300 / 300 General: Alert, Oriented x3, Cooperative, No apparent distress - denies back pain sitting in the chair HEENT: Atraumatic, PERRLA, EOMI, Normocephalic Oral: Moist Mucosa, No Gingival or Mucosal Lesions/ Ulcerations Neck: Supple, No JVD, No Nodes, Trachea Midline Lungs: Clear to auscultation, Normal air movement, No rhonchi, No wheeze, No rales Cardiovascular: Regular Rhythm, Normal S1, Normal S2, No murmurs, Bradycardic Abdomen: Bowel Sounds Present, Soft, Non Tender, Non-Distended, Obese, - Extremities: No clubbing, No cyanosis, No edema, Capillary Refill Less than 3 Seconds, No Calf Tenderness, Peripheral Pulses Normal Skin: No rashes, No breakdown Musculoskeletal: No Tenderness to Palpation of Joints or Extremities, No Muscle Wasting Neurological: Cranial nerves II-XII grossly intact, Neuro grossly intact Psych/Mental Status: Normal Affect, Appropriate Laboratory Results 06/07/19 16:19: POC Glucose 190 H 06/07/19 22:04: POC Glucose 186 H 06/08/19 06:56: POC Glucose 107 Current Medications Acetaminophen (Tylenol) 650 mg PO Q6H PRN PRN PRN Reason: Pain Score 1-10/Temp > 100.7 F Bisacodyl (Dulcolax) 10 mg RECTAL .PRN X 1 PRN PRN Reason: Constipation Insulin Human Lispro (Humalog Kwikpen (Bkc)) 0 unit [facility]; Protocol Last Admin: 06/08/19 07:42 Dose: Not Given Documented by: Magnesium Hydroxide (Milk Of Magnesia) 30 ml PO .PRN X 1 PRN PRN Reason: Constipation [facility] Admin: 06/08/19 08:02 Dose: 500 mg Documented by: Metoprolol Tartrate (Lopressor (Beta Gilbert)) 50 mg PO BID [facility] Last Admin: 06/08/19 10:13 Dose: Not Given Documented by: Multivitamins (Multivitamin) 1 tablet PO DAILY@0800 [facility] Last Admin: 06/08/19 08:02 Dose: 1 tablet Documented by: Pravastatin Sodium (Pravachol) 80 mg PO QHS [facility] Last Admin: 06/07/19 22:06 Dose: 80 mg Documented by: [facility]one () [facility] Last Admin: 06/08/19 08:02 Dose: 20 mg Documented by: Senna/Docusate Sodium (Senokot-S, Yokasta-Colace) 2 tablet PO BID [facility] Last Admin: 06/08/19 08:02 Dose: 2 tablet Documented by: Tramadol HCl (Ultram) 50 mg PO TID PRN PRN PRN Reason: Pain Score 6-03/16 Last Admin: 06/08/19 10:00 Dose: 50 mg Documented by: Warfarin Sodium (Coumadin (Pbkc)) 6 mg PO DAILY@1700 JAN[facility] Last Admin: 06/07/19 18:00 Dose: 6 mg Documented by: Assessment/Plan All Active Problems (Last Updated 03/17/19 @ 10:31 by Ana Lagos) Thrombocytopenia (Acute) Subtherapeutic international normalized ratio (INR) (Acute) Cellulitis of lower extremity (Resolved) Decubitus ulcer of right buttock, stage 2 (Resolved) Edema of lower extremity (Resolved) Nonhealing nonsurgical wound with fat layer exposed (Resolved) Peripheral vascular disease of lower extremity with ulceration (Resolved) Impressions 1. 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 Has not seen neurosurgery. 2. spinal canal stenosis at T11-12 and L3-4 3. Degenerative disc disease 4. Morbid obesity - weight loss advised 5. DM II 6. PAF 7. thrombocytopenia 8. WANDA - non-compliant with CPAP 9. Bradycardia 10. Pulmonary HTN 11. Hx of Diastolic CHF with preserved ejection fraction 12. Osteoarthritis 13. Chronic pain syndrome 14. Hypogonadism 15. 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 PLAN PT for gait stability OT for ADL's Consult Dr. Ortiz for chronic back pain - may benefit from and epidural Analgesics as needed Bowel protocol Fall precautions Assess for Anxiety/Depression GI prophylaxis with Pepcid DVT prophylaxis not needed - pt is on Warfarin for AF Follow up with Dr. Brooks following DC from Rehab ' Request Dr. Brooks's records - patient is not sure whether he is LT Prednisone or not. Both Prednisone and Meloxicam can cause PUD. Meloxicam was discontinued and we are attempting to find out if he is on Prednisone as an OP....Meloxicam can also affect the INR. Code Visit Inpatient E&M: 65274 Init Hosp L3
[2019-06-08 11:50] LABS: Bedside Glucose 127 mg/dL (70-110)
--- NOTE | 2019-06-08 13:03 | REHABEVAL_ITS ---
Admission Information Primary Diagnosis:: debility due to acute exacerbation of chronic back pain Status Changes from Prescreening?: No changes Identified Actual Problem List:: Falls, Skin Intergrity, Alteration in Sleep, Mobility Impaired, Self Care Deficit, Know.Dfct/Disease Process, Know.Dfct of Medicaitons, Alteration-Leisure Activ. Potential Problem List:: UTI, Falls, Skin Integrity, Depression Risk of Complications DVT: FRANCI Hose Bleeding: Monitor Lab Values, Nursing to Teach Precautions for anti-coagulation therapy., Wound, if applicable, to be assessed every shift., Stroke patients assessed for lethargy or change in status. Infection: Clinical Staff to Monitor for S/S of infection:, S/S of infection include fever, redness, warmth, etc. Urinary Tract Infection: Monitor for frequency, burning, discomfort, or incontinence., Nursing will obtain urine sample for urinalysis and C&S when ordered. Aspiration: Clinical staff will monitor for coughing, drooling, congestion. Falls: Patient will be evaluated for Fall Precautions, Patient will be placed on Fall Precautions as indicated per protocol. Skin Breakdown: Nursing will assess skin daily using assessment tool., Nursing will place on Skin Breakdown Precautions as indicated. Pain: Clinical staff will assess patient's pain level per protocol., Medications will be given, if needed, and the pain level reassessed., Other methods: Massage, distraction, decrease stimulus, etc. used PRN. Plan of Care Patient requires physician specializing in physical medicine and rehab oversight to provide close medical supervision of rehab issues including: Pain Management, Sleep Problems, Medical and co-morbidity Management, Rehabilitation Leadership, Coordination of treatment team Patient needs Physical Therapy: For a minimum of 1 hour, At least 5 out of 7 days Patient needs Physical Therapy to improve:: Mobility, Mobility, Mobility, Strengthening, Transfers, Stretching, ROM, Endurance, Stairs, Gait, Balance Patient needs Occupational Therapy: For a minimum of 1 hour, At least 5 out of 7 days Patient needs Occupational Therapy to improve ADL's incl.: Eating, Grooming, Bathing, Dressing, Toileting, Toilet transfers, Community Reintegration, Higher functioning activities, Household tasks, Adaptive Equipment, Splinting, Other activities as determined Patient requires 24/7 Rehabilitation Nursing for: Pain Issues, Identifying and preventing risk factors, Monitoring and reporting current medical conditions, Assisting with ambulation, transfer, and all ADL's, Teaching patients about disease process and medications, Family teaching, Providing safe environment, Skin integrity, Medication Management Patient needs Professor Of Communication/ Case Management for: Discharge Planning, Arranging Home Equipment or Services, Family Interventions Patient needs Dietary and Nutrition Services for: Adequate Nutrition, Nutritional Supplements, Nutritional Education Goals Patient will remain: free from falls, or injury at time of discharge. Patient will perform bed mobility at: MOD I level of assist. Patient will complete transfers from bed to chair at: MOD I level of assist. Patient will ambulate: 100 feet, with MOD I assist, with LRD Patient will complete upper body dressing at: MOD I level of assist. Patient will complete lower body dressing at: MOD I level of assist. Patient will complete toileting at: MOD I level of assist. Patient will perform bathing at: MOD I level of assist. Patient will complete grooming at: MOD I level of assist. Patient will complete home management skills at: MOD I level of assist. Patient will achieve: 12 stairs, at MOD I assist Patient will have pain level of: of 3 or less Patient's skin will: remain intact, free from infection. Patient will receive: adequate nutrition. Discharge Planning Pt Prognosis for Sig. Practical Improv. w/in Reasonable Time: Good Estimated Length of stay (days): 14 Anticipated D/C Destination: Home with Outpt Therapy
[2019-06-08] MEDS: Acetaminophen 500 MG Tablet 1000 MG PO ×2 (13:56→21:43)
--- NOTE | 2019-06-08 13:56 | CASEMGMT ---
Social Work Completed initial assessment with patient. Pt requested code status be DNR-CCA. Notified nursing. ELLY MoeW
[2019-06-08 17:16] LABS: Bedside Glucose 174 mg/dL (70-110)
--- NOTE | 2019-06-08 17:57 | NURSING ---
Call from psychotherapist social worker received, pt requested to be a DNRCC-A code status. Paper signed by pt and MD, witnessed by this nurse. Bracelet placed on pt.
[2019-06-08] MEDS: Pravastatin 80 MG Tablet PO (21:44)
[2019-06-08] MEDS: Famotidine 20 MG Tablet PO (21:44)
[2019-06-08] MEDS: MELATONIN 3 MG TABLET PO (21:44)
[2019-06-09 05:56] LABS: Prothrombin Time (Protime)PT. 22.9 SECONDS (11.7-14.9)
[2019-06-09] MEDS: Acetaminophen 500 MG Tablet 1000 MG PO ×3 (06:16→22:35)
[2019-06-09 06:25] LABS: Bedside Glucose 106 mg/dL (70-110)
[2019-06-09 07:22] VITALS: BP 157/77; PULSE 44; RESP 12; TEMP 36.8; O2SAT 97
[2019-06-09] MEDS: predniSONE 10 MG Tablet PO (08:25)
[2019-06-09] MEDS: Multivitamins,Therapeutic Tablet 1 TABLET PO (08:26)
[2019-06-09] MEDS: metFORMIN HCl 500 MG Tablet PO (08:26)
[2019-06-09] MEDS: Senna/Docusate Sodium 1 Tablet 2 TABLET PO (08:26)
[2019-06-09] MEDS: Famotidine 20 MG Tablet PO ×2 (08:26→22:34)
[2019-06-09] MEDS: Lidocaine 5% Patch 2 PATCH TOPICAL (08:27)
[2019-06-09 08:30] VITALS: PULSE 48
[2019-06-09] MEDS: traMADol 50 MG Tablet PO (12:59)
--- NOTE | 2019-06-09 13:22 | PCM.PN.BLA ---
Progress Note Metoprolol is being held due to a HR < 50. Will decrease the dose to 25 mg BID. If the BP is uncontrolled will start Amlodipine. INR is 2.0 today. will continue the same dose. Dr. Ortiz on vacation but, will see pt when he returns. Reports no pain while sitting in the recliner.......pain increases with weight bearing. Has not been taking the Tramadol. Encouraged him to take pain medications if needed to improve his performance with therapy. Denies SOB. No nausea and bowels moving OK. PHYSICAL EXAM: GENERAL: alert, oriented X 3, Cooperative, NAD ORAL: moist mucosa, no mucosal lesions NECK: No JVD, supple, trachea midline LUNGS: CTA, symmetric chest expansion HEART: RRR, Normal S1 and S2, no rub, no gallop ABDOMEN: soft, NT, ND, BS present, no guarding with palpation, obese EXTREMITIES: no edema, no cyanosis, no calf tenderness SKIN: No rashes, no breakdown NEUROLOGIC: no focal neurologic deficits PSYCH: appropriate, normal affect, pleasant Impressions 1. Debility secondary to severe degenerative disc disease and degenerative joint disease in the lumbar spine with canal stenosis. 2. Chronic pain-not taking his pain medication. I told him we are not going to be able to improve his function if he is not willing to take/try pain medications for pain control. Improvement in PT/OT limited by his pain rated at 8 with weightbearing. Code Visit Inpatient E&M: 36858 Subs Hosp L2
[2019-06-09 16:40] LABS: Bedside Glucose 164 mg/dL (70-110)
--- NOTE | 2019-06-09 16:43 | CHAPLAIN ---
Type of Pastoral Visit ___ Initial Visit _x__ Follow-up Visit ___ On-call Visit ___ General Patient Visit ___ Spiritual Assessment ___ Family Conference ___ Bereavement ___ Rapid Response ___ Code Blue ___ Other (describe below) Pastoral Care Referral From _x__ Patient ___ Family ___ Nurse ___ Physician ___ Adventure Therapist ___ Comfort Filler ___ Other (describe below) Sacrament/Intervention _x__ Active listening ___ Anointing ___ Protestant ___ Bereavement ___ Communion ___ Laura exploration ___ _x__ Life review _x__ Prayer ___ Reconciliation ___ Sacrament of Sick _x__ Supportive presence ___ Wedding ___ Other (describe below) Pastoral Comments
[2019-06-09 21:43] VITALS: BP 152/68; PULSE 56; RESP 18; TEMP 36.8; O2SAT 97
[2019-06-09 22:00] VITALS: PULSE 50
[2019-06-09] MEDS: MELATONIN 3 MG TABLET PO (22:34)
[2019-06-09] MEDS: Pravastatin 80 MG Tablet PO (22:34)
[2019-06-09 22:44] VITALS: PULSE 50
--- NOTE | 2019-06-10 03:59 | NURSING ---
Reviewed and agree with CLEANING MACHINE OPERATOR documentation and charting.
[2019-06-10] MEDS: Acetaminophen 500 MG Tablet 1000 MG PO ×3 (05:51→22:12)
[2019-06-10 06:40] LABS: Bedside Glucose 103 mg/dL (70-110)
[2019-06-10 07:42] VITALS: BP 149/75; PULSE 65; RESP 18; TEMP 36.6; O2SAT 96
[2019-06-10] MEDS: Famotidine 20 MG Tablet PO ×2 (07:54→22:12)
[2019-06-10 07:55] VITALS: PULSE 65
[2019-06-10 07:55] LABS: International Normalized Ratio 2.2; Prothrombin Time (Protime)PT. 24.4 SECONDS (11.7-14.9)
[2019-06-10] MEDS: Metoprolol Tartrate 25 MG Tablet PO ×2 (07:55→22:11)
[2019-06-10] MEDS: Lidocaine 5% Patch 2 PATCH TOPICAL (07:55)
[2019-06-10] MEDS: metFORMIN HCl 500 MG Tablet PO (07:55)
[2019-06-10] MEDS: predniSONE 10 MG Tablet PO (07:55)
[2019-06-10] MEDS: Multivitamins,Therapeutic Tablet 1 TABLET PO (07:55)
[2019-06-10 10:00] VITALS: PULSE 65
--- NOTE | 2019-06-10 11:32 | PCM.PN.BLA ---
Progress Note Afebile VSS -the heart rate has improved with decrease in the dose of metoprolol and his current pulse is in the mid 60s. The systolic blood pressure is mildly increased and has ranged from 1 49-1 66 over the preceding 2 days. Maintaining appropriate oxygen saturation on RA Oral intake is poor. Only 600 cc of oral intake was recorded for 06/09/2019. Pain is adequately controlled. He has taken only 2 doses of tramadol 50 mg since admission. Discussed with nursing - no problems that need addressed Reviewed the PT/OT notes Medication list reviewed. Blood sugar record was reviewed. Blood sugars are adequately controlled. INR is therapeutic at 2.2 today. He was seen by Dr. Ortiz last night and he is going to be scheduled for an epidural next Wed. Pt is good with this and plans on following up with Dr. Ortiz for pain management post DC from the rehab unit. His pain is primarily with weight bearing. He is OK sitting in the recliner. He hopes to not have to use an AD post discharge but, he admits to having problems with balance and he does have spinal canal stenosis. I explained that it is very important to avoid falls and there is no shame in using a Walker oR a cane when he is out and about if it prevents falls. He is OK to furniture walk at home. Denies cough and also denies SOB and wheezing. No CP. PHYSICAL EXAM: GENERAL: alert, oriented X 3, Cooperative, NAD, sitting in the recliner ORAL: moist mucosa, no mucosal lesions NECK: No JVD, supple, trachea midline LUNGS: CTA, symmetric chest expansion HEART: RRR, Normal S1 and S2, no rub, no gallop ABDOMEN: soft, NT, ND, BS present, no guarding with palpation, obese EXTREMITIES: no edema, no cyanosis, no calf tenderness SKIN: No rashes, no breakdown NEUROLOGIC: no focal neurologic deficits PSYCH: appropriate, normal affect, pleasant Impressions 1. chronic back pain with recent acute exacerbation and inability to ambulate. Seen by Dr. Ortiz and plan on Epidural this coming Wed. Will hold the Coumadin starting today.....when the INR is Less than 1.8 start prophylactic Lovenox. 2. On Prednisone for breathing...started by Dr. Brooks and it was supposed to be tapered. It was not and we started a taper at admission. He has no wheezing. 3. WANDA - not compliant with CPAP....no sleep study for many years.....reinforced the need to wear the CPAP to prevent worsening pulmonary HTN 4. obesity - advised weight loss......recommended the [facility] at the hospital...this will also help with the back pain. STROKE Vital Signs/Narrative: Vital Signs Temp Pulse Resp BP Pulse Ox 06/10/19 10:00 65 06/10/19 07:55 65 06/10/19 07:42 97.9 F 65 18 149/75 H 96 Code Visit Inpatient E&M: 53204 Subs Hosp L2
[2019-06-10 17:15] LABS: Bedside Glucose 140 mg/dL (70-110)
[2019-06-10 21:47] VITALS: BP 129/76; PULSE 89; RESP 14; TEMP 36.9; O2SAT 95
[2019-06-10 22:00] VITALS: PULSE 80
[2019-06-10 22:11] VITALS: PULSE 80
[2019-06-10] MEDS: MELATONIN 3 MG TABLET PO (22:11)
[2019-06-10] MEDS: Pravastatin 80 MG Tablet PO (22:12)
[2019-06-11 06:11] LABS: International Normalized Ratio 1.8; Prothrombin Time (Protime)PT. 20.8 SECONDS (11.7-14.9)
[2019-06-11] MEDS: Acetaminophen 500 MG Tablet 1000 MG PO ×3 (06:25→21:12)
[2019-06-11 06:50] LABS: Bedside Glucose 113 mg/dL (70-110)
[2019-06-11] MEDS: Lidocaine 5% Patch 2 PATCH TOPICAL (08:59)
[2019-06-11] MEDS: metFORMIN HCl 500 MG Tablet PO (09:02)
[2019-06-11 09:03] VITALS: BP 131/85; PULSE 70
[2019-06-11] MEDS: Famotidine 20 MG Tablet PO ×2 (09:03→21:12)
[2019-06-11] MEDS: Multivitamins,Therapeutic Tablet 1 TABLET PO (09:03)
[2019-06-11] MEDS: Metoprolol Tartrate 25 MG Tablet PO ×2 (09:03→21:12)
[2019-06-11] MEDS: predniSONE 10 MG Tablet PO (09:04)
[2019-06-11 09:08] VITALS: BP 131/85; PULSE 70; RESP 16; TEMP 36.4; O2SAT 97
[2019-06-11 16:25] LABS: Bedside Glucose 171 mg/dL (70-110)
[2019-06-11 20:10] VITALS: BP 139/75; PULSE 70; RESP 16; TEMP 36.8; O2SAT 93
[2019-06-11 21:00] VITALS: PULSE 70; RESP 16; O2SAT 93
[2019-06-11 21:12] VITALS: BP 139/75; PULSE 70
[2019-06-11] MEDS: Senna/Docusate Sodium 1 Tablet 2 TABLET PO (21:12)
[2019-06-11] MEDS: MELATONIN 3 MG TABLET PO (21:12)
[2019-06-11] MEDS: Pravastatin 80 MG Tablet PO (21:12)
[2019-06-12] MEDS: Acetaminophen 500 MG Tablet 1000 MG PO ×3 (06:26→21:30)
[2019-06-12 07:11] LABS: Bedside Glucose 122 mg/dL (70-110)
[2019-06-12 07:24] VITALS: PULSE 59
[2019-06-12] MEDS: Multivitamins,Therapeutic Tablet 1 TABLET PO (07:24)
[2019-06-12] MEDS: metFORMIN HCl 500 MG Tablet PO (07:24)
[2019-06-12] MEDS: predniSONE 10 MG Tablet PO (07:24)
[2019-06-12] MEDS: Metoprolol Tartrate 25 MG Tablet PO ×2 (07:24→21:32)
[2019-06-12] MEDS: Famotidine 20 MG Tablet PO ×2 (07:25→21:32)
[2019-06-12 07:28] VITALS: BP 123/67; PULSE 59; RESP 16; TEMP 36.3; O2SAT 97
[2019-06-12] MEDS: Lidocaine 5% Patch 2 PATCH TOPICAL (08:45)
[2019-06-12 10:22] LABS: International Normalized Ratio 1.5; Prothrombin Time (Protime)PT. 18.4 SECONDS (11.7-14.9)
--- NOTE | 2019-06-12 10:41 | CASEMGMT ---
Social Work IDT met with patient and for Team Meeting. Discussed patient's progress in therapy. Pt is CGA for transfers, walking 165 ft with fww, mod assist for bathing, supervision for UE dressing and grooming, min assist with LE dressing using adaptive equipment. assisted with LE dressing prior. Pt's gait is more fluid. Pain issues at times - physician encouraged pt ot take pain meds. Ordered consult with pain management dr and getting back injection 06/15. Explained Medicare ELOS 13 days with DC home with 06/20. Will ReTeam next week. Will continue to follow. ELLY Moe COPY WRITER
--- NOTE | 2019-06-12 11:30 | PCM.PROGNOTE ---
Patient Problems: Active and Suspected Problems (Last Reviewed 06/08/19 @ 12:38 by Kaitlynn Boyle DO) Thrombocytopenia (Acute) Subtherapeutic international normalized ratio (INR) (Acute) Subjective: Seen on TEAM rounds today. His was present. Afebile VSS Maintaining appropriate oxygen saturation on RA Oral intake is good Discussed with nursing - no problems that need addressed Reviewed the PT/OT/ST notes Medication list reviewed. He has not been taking anything for pain other than the scheduled Tylenol. He has no pain when he is not bearing weight. I think the pain with weight bearing may be affecting his ability to do therapy. Coumadin is on hold in preparation for the upcoming epidural Wednesday. INR is 1.5 today so will give Lovenox 40 mg today and tomorrow and then hold for epidural Wednesday with Dr. Ortiz. Still not taking pain medication. I asked him why and he told me pain medication has not helped in the past. I explained that now is the perfect opportunity to try some different modalities/medications to find something that works. He plans on following up with Dr. Ortiz following DC from [facility]. - Physical Exam Vitals/I&O's: Vital Signs Temp Pulse Resp BP Pulse Ox 97.4 F L 59 L 16 123/67 H 97 06/12/19 07:28 06/12/19 07:28 06/12/19 07:28 06/12/19 07:28 06/12/19 07:28 Oxygen Delivery Method Room Air Weight: 253 lb 0.004 oz Body Mass Index (BMI) 40.8 Intake and Output for Last 24 Hours 06/10/19 06/11/19 06/12/19 23:59 23:59 23:59 Intake Total 1720 / 1720 2200 / 2200 460 / 460 Output Total 1500 / 1500 2000 / 1999 Balance 220 / 220 200 / 200 460 / 460 General: Alert, Oriented x3, Cooperative, No apparent distress - while sitting in the recliner at the bedside Oral: Moist Mucosa Neck: Supple, No JVD, No Nodes Lungs: Clear to auscultation, Normal air movement Cardiovascular: Regular rate, Regular Rhythm, Normal S1, Normal S2, No Gallop Abdomen: Bowel Sounds Present, Soft, Non Tender, Non-Distended, Obese Extremities: No clubbing, No cyanosis, Edema - trace at the ankles. TEDS are in place Skin: No rashes, No breakdown Psych/Mental Status: Normal Affect, Appropriate Laboratory Results 06/11/19 16:05: POC Glucose 171 H 06/12/19 06:59: POC Glucose 122 H 06/12/19 10:05: PT 18.4 H, INR 1.5 Current Medications Acetaminophen (Tylenol) 1,000 mg PO Q8 [facility] Last Admin: 06/12/19 06:26 Dose: 1,000 mg Documented by: Amlodipine Besylate (Norvasc) 2.5 mg PO Q12H PRN PRN PRN Reason: syst>150 DIST>85 Bisacodyl (Dulcolax) 10 mg RECTAL .PRN X 1 PRN PRN Reason: Constipation Calamine/Phenol (Calmoseptine Ointment) 1 applic TOPICAL BID@06,1999 [facility]; Protocol Enoxaparin Sodium (Lovenox) 40 mg SC DAILY@0600 [facility] Stop: 06/13/19 06:01 Famotidine (Pepcid) 20 mg PO BID [facility] Last Admin: 06/12/19 07:25 Dose: 20 mg Documented by: Lidocaine (Lidoderm Patch) 2 patch TOPICAL DAILY [facility]; Protocol Last Admin: 06/12/19 08:45 Dose: 2 patch Documented by: Magnesium Hydroxide (Milk Of Magnesia) 30 ml PO .PRN X 1 PRN PRN Reason: Constipation Melatonin (Melatonin) 3 mg PO QHS [facility] Last Admin: 06/11/19 21:12 Dose: 3 mg Documented by: Metformin [facility] (Glucophage) [facility] Last Admin: 06/12/19 07:24 Dose: 500 mg Documented by: Metoprolol Tartrate (Lopressor (Beta Gilbert)) 25 mg PO BID [facility] Last Admin: 06/12/19 07:24 Dose: 25 mg Documented by: Multivitamins (Multivitamin) 1 tablet PO DAILY@0800 [facility] Last Admin: 06/12/19 07:24 Dose: 1 tablet Documented by: Pravastatin Sodium (Pravachol) 80 mg PO QHS [facility] Last Admin: 06/11/19 21:12 Dose: 80 mg Documented by: Prednisone () 10 mg PO DAILY@0800 [facility] Stop: 06/15/19 08:01 Last Admin: 06/12/19 07:24 Dose: 10 mg Documented by: Prednisone () 5 mg PO DAILY@0800 [facility] Stop: 06/22/19 08:01 Senna/Docusate Sodium (Senokot-S, Yokasta-Colace) 2 tablet PO BID [facility] Last Admin: 06/12/19 07:28 Dose: Not Given Documented by: Tramadol HCl (Ultram) 50 mg PO BID@0800,1700 [facility] Medical Necessity - Tobacco Use Smoking Status: Former smoker - quit in 1981 Tobacco Use: Non-smoker Assessment/Plan All Active Problems (Last Reviewed 06/08/19 @ 12:38 by Kaitlynn Boyle DO) Thrombocytopenia (Acute) Subtherapeutic international normalized ratio (INR) (Acute) Cellulitis of lower extremity (Resolved) Decubitus ulcer of right buttock, stage 2 (Resolved) Edema of lower extremity (Resolved) Nonhealing nonsurgical wound with fat layer exposed (Resolved) Peripheral vascular disease of lower extremity with ulceration (Resolved) Impressions 1. 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 Has not seen neurosurgery. 2. spinal canal stenosis at T11-12 and L3-4 3. Degenerative disc disease 4. Morbid obesity - weight loss advised 5. DM II 6. PAF 7. thrombocytopenia 8. WANDA - non-compliant with CPAP 9. Bradycardia 10. Pulmonary HTN 11. Hx of Diastolic CHF with preserved ejection fraction 12. Osteoarthritis 13. Chronic pain syndrome 14. Hypogonadism 15. 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 Warfarin on hold. INR is 1.5 today. Lovenox 40 mg SC today and tomorrow and then hold for epidural Wednesday. Schedule the Tramadol BID to see if this improves pain with weight bearing. Prednisone is being tapered off. It was started for respiratory illness Code Visit Inpatient E&M: 34237 Subs Hosp L2
[2019-06-12] MEDS: Enoxaparin 40 MG/0.4 ML Syringe SC (12:12)
[2019-06-12] MEDS: traMADol 50 MG Tablet PO (17:01)
[2019-06-12 17:20] LABS: Bedside Glucose 121 mg/dL (70-110)
[2019-06-12 19:21] VITALS: BP 137/78; PULSE 78; RESP 16; TEMP 36.5; O2SAT 96
[2019-06-12] MEDS: Senna/Docusate Sodium 1 Tablet 2 TABLET PO (21:30)
[2019-06-12 21:32] VITALS: BP 138/66; PULSE 63
[2019-06-12] MEDS: MELATONIN 3 MG TABLET PO (21:32)
[2019-06-12] MEDS: Pravastatin 80 MG Tablet PO (21:32)
[2019-06-12] MEDS: Menthol/Lanolin/Calamine/Znox 113 GM Tube 1 APPLIC TOPICAL (21:52)
[2019-06-12 22:00] VITALS: PULSE 78; RESP 16
[2019-06-13] MEDS: Acetaminophen 500 MG Tablet 1000 MG PO ×3 (05:35→20:57)
[2019-06-13] MEDS: Menthol/Lanolin/Calamine/Znox 113 GM Tube 1 APPLIC TOPICAL ×2 (05:36→20:54)
[2019-06-13] MEDS: Enoxaparin 40 MG/0.4 ML Syringe SC (05:37)
[2019-06-13 06:40] LABS: Bedside Glucose 101 mg/dL (70-110)
[2019-06-13 07:10] VITALS: BP 125/66; PULSE 58; RESP 16; TEMP 36.3; O2SAT 100
[2019-06-13] MEDS: traMADol 50 MG Tablet PO ×2 (07:56→16:54)
[2019-06-13 07:57] VITALS: BP 125/66; PULSE 58
[2019-06-13] MEDS: Senna/Docusate Sodium 1 Tablet 2 TABLET PO (07:57)
[2019-06-13] MEDS: Lidocaine 5% Patch 2 PATCH TOPICAL (07:57)
[2019-06-13] MEDS: Metoprolol Tartrate 25 MG Tablet PO ×2 (07:57→20:54)
[2019-06-13] MEDS: Multivitamins,Therapeutic Tablet 1 TABLET PO (07:57)
[2019-06-13] MEDS: metFORMIN HCl 500 MG Tablet PO (07:57)
[2019-06-13] MEDS: Famotidine 20 MG Tablet PO ×2 (07:57→20:56)
[2019-06-13] MEDS: predniSONE 10 MG Tablet PO (07:57)
[2019-06-13 17:10] LABS: Bedside Glucose 128 mg/dL (70-110)
[2019-06-13 18:28] VITALS: BP 157/75; PULSE 84; RESP 16; TEMP 36.4; O2SAT 96
[2019-06-13 20:54] VITALS: BP 150/72; PULSE 86
[2019-06-13] MEDS: MELATONIN 3 MG TABLET PO (20:55)
[2019-06-13] MEDS: Pravastatin 80 MG Tablet PO (20:56)
[2019-06-13 22:00] VITALS: PULSE 86; RESP 16
[2019-06-14] VITALS (9 sets, daily range): BP systolic 99–145; BP diastolic 65–85; PULSE 61–70; RESP 16–17; TEMP 36.4–36.8; O2SAT 94–98; BMI 40.1
[2019-06-14 05:47] LABS: International Normalized Ratio 1.2; Prothrombin Time (Protime)PT. 15.2 SECONDS (11.7-14.9)
[2019-06-14] MEDS: Menthol/Lanolin/Calamine/Znox 113 GM Tube 1 APPLIC TOPICAL ×2 (06:01→22:58)
[2019-06-14 06:30] LABS: Bedside Glucose 98 mg/dL (70-110)
[2019-06-14] MEDS: Metoprolol Tartrate 25 MG Tablet PO ×2 (08:19→23:01)
[2019-06-14] MEDS: Lactated Ringers 1,000 ML 100 ML IV ×2 (12:45→23:02)
--- NOTE | 2019-06-14 13:45 | RAD_ITS ---
STUDY: X-RAY - SACROILIAC JOINTS REASON FOR EXAM: Male, 78 years old. BILAT SI JOINT INJECTIONS, RIGHT SPOT ONLY IMAGE SAVED -- 13.6 FLUORO SEC, 7.71mGy, 1 FLUORO SPOT TECHNIQUE: Single coned-down intraoperative view(s) of the sacroiliac joints were obtained. COMPARISON: None. FINDINGS: Intraoperative imaging provided for bilateral sacroiliac joint injection. RAD/S-I Jts 3 or More Views IMPRESSION: Intraoperative imaging provided for bilateral sacroiliac joint injection. Electronically Signed: Kiel Romero, at 8:08 EST , Service support ,
[2019-06-14] MEDS: Bupivacaine 0.25% 30 ML Vial (13:55)
[2019-06-14] MEDS: Triamcinolone Acetonide 40 MG/ML Vial (14:00)
[2019-06-14 16:50] LABS: Bedside Glucose 110 mg/dL (70-110)
[2019-06-14] MEDS: metFORMIN HCl 500 MG Tablet PO (17:30)
[2019-06-14] MEDS: Multivitamins,Therapeutic Tablet 1 TABLET PO (17:30)
[2019-06-14] MEDS: Famotidine 20 MG Tablet PO ×2 (17:31→23:01)
[2019-06-14] MEDS: predniSONE 10 MG Tablet PO (17:31)
[2019-06-14] MEDS: Acetaminophen 500 MG Tablet 1000 MG PO ×2 (17:31→23:02)
[2019-06-14] MEDS: traMADol 50 MG Tablet PO (17:37)
[2019-06-14] MEDS: Pravastatin 80 MG Tablet PO (23:01)
[2019-06-14] MEDS: MELATONIN 3 MG TABLET PO (23:01)
[2019-06-14] MEDS: Senna/Docusate Sodium 1 Tablet 2 TABLET PO (23:02)
--- NOTE | 2019-06-15 02:02 | NURSING ---
Reviewed and agree with EXCELLENCE SPECIALIST documentation.
[2019-06-15] MEDS: Acetaminophen 500 MG Tablet 1000 MG PO ×3 (05:29→23:24)
[2019-06-15] MEDS: Menthol/Lanolin/Calamine/Znox 113 GM Tube 1 APPLIC TOPICAL ×2 (05:30→20:31)
[2019-06-15 07:15] LABS: Bedside Glucose 154 mg/dL (70-110)
[2019-06-15 08:27] VITALS: BP 154/66; PULSE 62
[2019-06-15] MEDS: predniSONE 10 MG Tablet PO (08:27)
[2019-06-15] MEDS: Senna/Docusate Sodium 1 Tablet 2 TABLET PO ×2 (08:27→23:24)
[2019-06-15] MEDS: metFORMIN HCl 500 MG Tablet PO (08:27)
[2019-06-15] MEDS: Multivitamins,Therapeutic Tablet 1 TABLET PO (08:27)
[2019-06-15] MEDS: Metoprolol Tartrate 25 MG Tablet PO ×2 (08:27→23:23)
[2019-06-15] MEDS: Famotidine 20 MG Tablet PO ×2 (08:27→23:23)
[2019-06-15] MEDS: traMADol 50 MG Tablet PO ×2 (08:29→16:49)
[2019-06-15 08:53] VITALS: BP 154/66; PULSE 62; RESP 18; TEMP 36.4; O2SAT 97
[2019-06-15] MEDS: Lidocaine 5% Patch 2 PATCH TOPICAL (10:33)
--- NOTE | 2019-06-15 12:10 | PCM.PN.BLA ---
Progress Note Had a BL SI joint injection yesterday by Dr. Ortiz. VSS Maintaining appropriate oxygen saturation on room air. Afebrile Blood sugar record was reviewed and the blood sugars are well controlled. He was seen post epidural and he is awake and appropriate. No complaints. Lungs - - CTA, not tachypneic and no conversational dyspnea Heart - RRR, no MM and no gallop or rub, not tachycardic or bradycardic Abd - non-tender Moving all extremities Impressions 1. S/P epidural - will reassess tomorrow whether he has any relief from this. Continue to taper steroids Continue the Tramadol BID STROKE Vital Signs/Narrative: Vital Signs Temp Pulse Resp BP Pulse Ox 06/15/19 08:53 97.6 F L 62 18 154/66 H 97 06/15/19 08:27 62 154/66 H Code Visit Inpatient E&M: 38167 Subs Hosp L1
[2019-06-15 16:21] LABS: Bedside Glucose 180 mg/dL (70-110)
--- NOTE | 2019-06-15 17:04 | CHAPLAIN ---
Type of Pastoral Visit ___ Initial Visit _x__ Follow-up Visit ___ On-call Visit ___ General Patient Visit ___ Spiritual Assessment ___ Family Conference ___ Bereavement ___ Rapid Response ___ Code Blue ___ Other (describe below) Pastoral Care Referral From _x__ Patient ___ Family ___ Nurse ___ Physician ___ Assessment Counselor ___ Promotions Assistant ___ Other (describe below) Sacrament/Intervention _x__ Active listening ___ Anointing ___ Restorationist ___ Bereavement ___ Communion ___ Laura exploration ___ ___ Life review _x__ Prayer ___ Reconciliation ___ Sacrament of Sick _x__ Supportive presence ___ Wedding ___ Other (describe below) Pastoral Comments
[2019-06-15 18:51] VITALS: BP 159/78; PULSE 77; RESP 16; TEMP 36.4; O2SAT 99
[2019-06-15 23:23] VITALS: BP 164/94; PULSE 60
[2019-06-15] MEDS: Pravastatin 80 MG Tablet PO (23:23)
[2019-06-15] MEDS: MELATONIN 3 MG TABLET PO (23:23)
--- NOTE | 2019-06-16 01:06 | NURSING ---
REVIEWED AND AGREE WITH FISHING LURE ASSEMBLER'S FUNCTIONAL ASSESSMENT AND HANDOFF CHARTING.
[2019-06-16] MEDS: Acetaminophen 500 MG Tablet 1000 MG PO ×3 (06:22→23:42)
[2019-06-16] MEDS: Menthol/Lanolin/Calamine/Znox 113 GM Tube 1 APPLIC TOPICAL ×2 (06:24→23:45)
[2019-06-16 06:45] LABS: Bedside Glucose 143 mg/dL (70-110)
[2019-06-16 07:55] VITALS: BP 156/86; PULSE 60
[2019-06-16] MEDS: Famotidine 20 MG Tablet PO ×2 (07:55→23:43)
[2019-06-16] MEDS: Metoprolol Tartrate 25 MG Tablet PO ×2 (07:55→23:43)
[2019-06-16] MEDS: predniSONE 5 MG Tablet PO (07:55)
[2019-06-16] MEDS: Multivitamins,Therapeutic Tablet 1 TABLET PO (07:55)
[2019-06-16] MEDS: metFORMIN HCl 500 MG Tablet PO (07:55)
[2019-06-16] MEDS: Senna/Docusate Sodium 1 Tablet 2 TABLET PO ×2 (07:55→23:43)
[2019-06-16] MEDS: traMADol 50 MG Tablet PO ×3 (07:58→23:42)
[2019-06-16 08:37] VITALS: BP 156/86; PULSE 60; RESP 16; TEMP 32.7; O2SAT 98
--- NOTE | 2019-06-16 11:14 | PN_ITS ---
Progress Note VSS Maintaining appropriate oxygen saturation on RA Good appetite Does not feel that the Epidural helped but, it may get better over the next 24- 48 hours....sometimes there is a flare with the injection. He tells me today that the Tramadol seems to be helping. Will continue with the current BID dosing and add a dose at bedtime to see if this helps him be more comfortable with sleep. Restart the Coumadin. Daily PT/INR. 10 mg today and then resume regular dose daily tomorrow. Start Lovenox prophylactically until the INR is therapeutic or at least > 1.6 PHYSICAL EXAM: GENERAL: alert, oriented X 3, Cooperative, NAD ORAL: moist mucosa, no mucosal lesions NECK: No JVD, supple, trachea midline LUNGS: CTA, symmetric chest expansion HEART: RRR, Normal S1 and S2, no rub, no gallop ABDOMEN: soft, NT, ND, BS present, no guarding with palpation EXTREMITIES: no edema, no cyanosis, no calf tenderness SKIN: No rashes, no breakdown NEUROLOGIC: no focal neurologic deficits PSYCH: appropriate, normal affect, pleasant Impressions 1. Debility secondary to severe back pain-no real improvement with epidural yet. Tramadol seems to be helping. Patient states that he is sleeping better with CPAP and that his nocturia has decreased significantly. He is only getting up 1 time at night to urinate. Plans on wearing CPAP when he goes home. Check lab on Wednesday. Start Lovenox 40 mg subcu daily If the pain continues to be greater than a 5 on Wednesday consider a trial of gabapentin. Loading Coumadin, check daily PT/INR Add tramadol 50 mg nightly STROKE Vital Signs/Narrative: Vital Signs Temp Pulse Resp BP Pulse Ox 06/16/19 08:37 90.8 F L 60 16 156/86 H 98 06/16/19 07:55 60 156/86 H Code Visit Inpatient E&M: 89704 Subs Hosp L2
--- NOTE | 2019-06-16 15:58 | CASEMGMT ---
Social Work Spoke with pt to follow up on DC plans for 06/20. Pt states he is not ready to DC home yet and would continued therapy in a SNF. Pt requested referrals to TCU, [facility] and [facility]. Referred to [facility]CU - whom can accept - pt did not want other referrals made and would like to go to TCU. Will ReTeam Wednesday. Plan: DC to TCU 06/20. Ashley Loja, [employer]NAGER
[2019-06-16 17:30] LABS: Bedside Glucose 137 mg/dL (70-110)
[2019-06-16 19:28] VITALS: BP 151/81; PULSE 63; RESP 18; TEMP 37.1; O2SAT 97
[2019-06-16 23:25] VITALS: O2SAT 98
[2019-06-16 23:43] VITALS: BP 147/90; PULSE 61
[2019-06-16] MEDS: Pravastatin 80 MG Tablet PO (23:43)
[2019-06-16] MEDS: MELATONIN 3 MG TABLET PO (23:43)
[2019-06-17] MEDS: Acetaminophen 500 MG Tablet 1000 MG PO ×3 (05:58→21:43)
[2019-06-17] MEDS: Menthol/Lanolin/Calamine/Znox 113 GM Tube 1 APPLIC TOPICAL ×2 (05:58→21:46)
[2019-06-17 06:30] LABS: Bedside Glucose 121 mg/dL (70-110)
[2019-06-17 07:37] VITALS: BP 144/88; PULSE 53; RESP 18; TEMP 36.5; O2SAT 98
[2019-06-17] MEDS: Famotidine 20 MG Tablet PO ×2 (08:00→21:44)
[2019-06-17] MEDS: predniSONE 5 MG Tablet PO (08:00)
[2019-06-17] MEDS: Multivitamins,Therapeutic Tablet 1 TABLET PO (08:00)
[2019-06-17] MEDS: traMADol 50 MG Tablet PO ×3 (08:00→21:43)
[2019-06-17] MEDS: metFORMIN HCl 500 MG Tablet PO (08:00)
[2019-06-17] MEDS: Senna/Docusate Sodium 1 Tablet 2 TABLET PO ×2 (08:01→21:43)
[2019-06-17 08:02] VITALS: BP 144/88; PULSE 64
[2019-06-17] MEDS: Metoprolol Tartrate 25 MG Tablet PO ×2 (08:02→21:50)
[2019-06-17 08:09] LABS: International Normalized Ratio 1.2; Prothrombin Time (Protime)PT. 14.5 SECONDS (11.7-14.9)
[2019-06-17] MEDS: Enoxaparin 40 MG/0.4 ML Syringe SC (13:40)
--- NOTE | 2019-06-17 15:24 | PN_ITS ---
Patient Problems: Active and Suspected Problems (Last Reviewed 06/08/19 @ 12:38 by Kaitlynn Boyle DO) Thrombocytopenia (Acute) Subtherapeutic international normalized ratio (INR) (Acute) Reason for Visit: rehabilitation for acute on chronic back pain. Subjective: Patient has no pain with rest, but goes from 0 to 10 with activity and he needs to use a walker. Pain goes across his low back. No radicular symptoms, no bowel or bladder incontinence. Denies constipation. Vitals/I&O's: Vital Signs Temp Pulse Resp BP Pulse Ox 36.5 C L 64 18 144/88 H 98 06/17/19 07:37 06/17/19 08:02 06/17/19 07:37 06/17/19 08:02 06/17/19 07:37 Oxygen Delivery Method Room Air Weight: 112.763 kg Body Mass Index (BMI) 40.1 Intake and Output for Last 24 Hours 06/15/19 06/16/19 06/17/19 23:59 23:59 23:59 Intake Total 3224.00 / 3224.00 2160 / 2160 880 / 880 Output Total 2625 / 2625 2300 / 2300 1550 / 1550 Balance 599.00 / 599.00 -140 / -140 -670 / -670 General: Oriented x3, No apparent distress HEENT: Atraumatic, Normocephalic Oral: Moist Mucosa, No Gingival or Mucosal Lesions/ Ulcerations Neck: No Nodes, Trachea Midline Lungs: Clear to auscultation, Normal air movement, No rhonchi, No wheeze, No rales Cardiovascular: Regular rate, Regular Rhythm, Normal S1, Normal S2 Abdomen: Bowel Sounds Present, Soft, Non Tender, Non-Distended, No Hepato- splenomegaly Extremities: No edema, No Calf Tenderness Skin: No rashes, No breakdown Musculoskeletal: No Tenderness to Palpation of Joints or Extremities, No Muscle Wasting Psych/Mental Status: Normal Affect, Appropriate Laboratory Results 06/16/19 17:05: POC Glucose 137 H 06/17/19 06:25: POC Glucose 121 H 06/17/19 07:28: PT 14.5, INR 1.2 Current Medications Acetaminophen (Tylenol) 1,000 mg PO Q8 [facility] Last Admin: 06/17/19 13:40 Dose: 1,000 mg Documented by: Amlodipine Besylate (Norvasc) 2.5 mg PO Q12H PRN PRN PRN Reason: syst>150 DIST>85 Bisacodyl (Dulcolax) 10 mg RECTAL .PRN X 1 PRN PRN Reason: Constipation Calamine/Phenol (Calmoseptine Ointment) 1 applic TOPICAL BID@0600,2000 [facility]; Protocol Last Admin: 06/17/19 05:58 Dose: 1 applicatio Documented by: Enoxaparin Sodium (Lovenox) 40 mg SC DAILY@0600 [facility] Famotidine (Pepcid) 20 mg PO BID [facility] Last Admin: 06/17/19 08:00 Dose: 20 mg Documented by: Magnesium Hydroxide (Milk Of Magnesia) 30 ml PO .PRN X 1 PRN PRN Reason: Constipation Melatonin (Melatonin) 3 mg PO QHS [facility] Last Admin: 06/16/19 23:43 Dose: 3 mg Documented by: Met[facility] (Glucophage) [facility] Last Admin: 06/17/19 08:00 Dose: 500 mg Documented by: Metoprolol Tartrate (Lopressor (Beta Gilbert)) 25 mg PO BID [facility] Last Admin: 06/17/19 08:02 Dose: 25 mg Documented by: Multivitamins (Multivitamin) 1 tablet PO DAILY@0800 [facility] Last Admin: 06/17/19 08:00 Dose: 1 tablet Documented by: Pravastatin Sodium (Pravachol) 80 mg PO QHS [facility] Last Admin: 06/16/19 23:43 Dose: 80 mg Documented by: Prednisone () 5 mg PO DAILY@0800 [facility] Stop: 06/22/19 08:01 Last Admin: 06/17/19 08:00 Dose: 5 mg Documented by: Senna/Docusate Sodium (Senokot-S, Yokasta-Colace) 2 tablet PO BID [facility] Last Admin: 06/17/19 08:01 Dose: 2 tablet Documented by: Sodium Chloride () 10 - 40 ml IV UD PRN PRN Reason: SALINE FLUSH Tramadol HCl (Ultram) 50 mg PO BID@0800,1700 [facility] Last Admin: 06/17/19 08:00 Dose: 50 mg Documented by: Tramadol HCl (Ultram) 50 mg PO QHS [facility] Last Admin: 06/16/19 23:42 Dose: 50 mg Documented by: Warfarin Sodium (Coumadin (Pbkc)) 6 mg PO DAILY@1700 [facility] Warfarin Sodium (Coumadin (Pbkc)) 4 mg PO X1 [facility] Stop: 06/17/19 17:01 Medical Necessity - Tobacco Use Smoking Status: Former smoker - quit in 1981 Tobacco Use: Non-smoker Assessment/Plan All Active Problems (Last Reviewed 06/08/19 @ 12:38 by Kaitlynn Boyle DO) Thrombocytopenia (Acute) Subtherapeutic international normalized ratio (INR) (Acute) Cellulitis of lower extremity (Resolved) Decubitus ulcer of right buttock, stage 2 (Resolved) Edema of lower extremity (Resolved) Nonhealing nonsurgical wound with fat layer exposed (Resolved) Peripheral vascular disease of lower extremity with ulceration (Resolved) 1. Acute on chronic pain: * no relief with epidural that was performed on 06/14 * continue with conservative mgmt. * continue tramadol * consider spine surgery/neurosurgery as outpt given his DDD 2. afib * continue warfarin, INR subtherapeutic * enoxaparin until INR greater than or equal to 2. Discussed with patient's at bedside. Code Visit Inpatient E&M: 50086 Subs Hosp L2
[2019-06-17 17:15] LABS: Bedside Glucose 184 mg/dL (70-110)
[2019-06-17 19:17] VITALS: BP 135/59; PULSE 66; RESP 18; TEMP 36.8; O2SAT 97
[2019-06-17] MEDS: Pravastatin 80 MG Tablet PO (21:43)
[2019-06-17] MEDS: MELATONIN 3 MG TABLET PO (21:43)
[2019-06-17 21:49] VITALS: PULSE 61
[2019-06-17 21:50] VITALS: BP 135/59; PULSE 61
[2019-06-18] MEDS: Acetaminophen 500 MG Tablet 1000 MG PO ×3 (06:42→21:53)
[2019-06-18] MEDS: Enoxaparin 40 MG/0.4 ML Syringe SC (06:43)
[2019-06-18] MEDS: Menthol/Lanolin/Calamine/Znox 113 GM Tube 1 APPLIC TOPICAL ×2 (06:43→21:55)
[2019-06-18 07:01] LABS: Bedside Glucose 124 mg/dL (70-110)
[2019-06-18 07:08] VITALS: BP 149/74; PULSE 55; RESP 16; TEMP 36.6; O2SAT 97
[2019-06-18 07:23] VITALS: BP 149/74; PULSE 56
[2019-06-18] MEDS: metFORMIN HCl 500 MG Tablet PO (07:23)
[2019-06-18] MEDS: predniSONE 5 MG Tablet PO (07:23)
[2019-06-18] MEDS: Multivitamins,Therapeutic Tablet 1 TABLET PO (07:23)
[2019-06-18] MEDS: Famotidine 20 MG Tablet PO ×2 (07:23→21:55)
[2019-06-18] MEDS: Metoprolol Tartrate 25 MG Tablet PO ×2 (07:23→21:55)
[2019-06-18] MEDS: traMADol 50 MG Tablet PO ×3 (07:23→21:50)
[2019-06-18] MEDS: Senna/Docusate Sodium 1 Tablet 2 TABLET PO (07:23)
[2019-06-18 08:41] LABS: International Normalized Ratio 1.3; Prothrombin Time (Protime)PT. 16.3 SECONDS (11.7-14.9)
[2019-06-18 17:26] LABS: Bedside Glucose 178 mg/dL (70-110)
[2019-06-18 19:13] VITALS: BP 140/84; PULSE 71; RESP 18; TEMP 36.8; O2SAT 97
[2019-06-18 21:49] VITALS: BP 149/79; PULSE 67
[2019-06-18 21:55] VITALS: BP 149/79; PULSE 67
[2019-06-18] MEDS: MELATONIN 3 MG TABLET PO (21:55)
[2019-06-18] MEDS: Pravastatin 80 MG Tablet PO (21:55)
[2019-06-19 05:51] LABS: Hematocrit 40.7 % (40-54); Mean Corp Hgb Conc 31.9 g/dL (32-36); Mean Corpuscular Hgb 31.4 pg (27.0-32.0); Mean Corpuscular Volume 98.3 fL (80-94); Mean Platelet Vol. 9.6 fl (6.2-12.0); Platelet Count 145 K/mm3 (150-450); RBC Distribution Width CV 13.6 % (11.6-14.6); RBC Distribution Width SD 49.2 fl (35.1-43.9); Red Blood Count 4.14 M/mm3 (4.6-6.2); White Blood Count 5.3 K/mm3 (4.4-11.0)
[2019-06-19] MEDS: Acetaminophen 500 MG Tablet 1000 MG PO ×3 (06:20→21:59)
[2019-06-19 06:21] LABS: Anion Gap 4 (5-15); BUN 33 mg/dL (7-18); BUN/Creat Ratio 30.6 RATIO (10-20); Calcium,Total 8.9 mg/dL (8.5-10.1); Chloride 109 mmol/L (98-107); Creatinine, Serum 1.08 mg/dL (0.70-1.30); EST Glomerular Filtration Rate 70 mL/min (>60); Est Glom Filt Rate - Afr Amer 85 mL/min (>60); Estimated Creatinine Clearance 50.87 ml/min; Glucose 136 mg/dL (74-106); Potassium 4.8 mmol/L (3.5-5.1); Sodium Level 141 mmol/L (136-145)
[2019-06-19] MEDS: Menthol/Lanolin/Calamine/Znox 113 GM Tube 1 APPLIC TOPICAL ×2 (06:21→21:58)
[2019-06-19] MEDS: Enoxaparin 40 MG/0.4 ML Syringe SC (06:21)
[2019-06-19 07:07] VITALS: BP 134/83; PULSE 64; RESP 16; TEMP 36.4; O2SAT 98
[2019-06-19 07:31] LABS: Bedside Glucose 116 mg/dL (70-110)
[2019-06-19 07:47] LABS: International Normalized Ratio 1.5; Prothrombin Time (Protime)PT. 17.6 SECONDS (11.7-14.9)
[2019-06-19 08:12] VITALS: BP 134/83; PULSE 64
[2019-06-19] MEDS: Metoprolol Tartrate 25 MG Tablet PO ×2 (08:12→21:58)
[2019-06-19] MEDS: Famotidine 20 MG Tablet PO ×2 (08:12→21:59)
[2019-06-19] MEDS: Multivitamins,Therapeutic Tablet 1 TABLET PO (08:13)
[2019-06-19] MEDS: metFORMIN HCl 500 MG Tablet PO (08:13)
[2019-06-19] MEDS: predniSONE 5 MG Tablet PO (08:13)
[2019-06-19] MEDS: traMADol 50 MG Tablet PO ×3 (08:13→22:01)
--- NOTE | 2019-06-19 10:42 | CASEMGMT ---
Social Work IDT met with patient for Team Meeting. Discussed patient's progress in therapy. Pt is walking 165 ft with FWW, w/c follow as pt's legs get weak. Pt is very motivated with therapy and toward goal of returning home. Pt completed 3 steps, but is unsteady. Min assist for wash feet and was able to use adaptive equipment for other LE ADLS. Pt is SBA for transfers, and SBA for UE ADLS. Pt will DC to TCU 06/20. Plan: DC to TCU 06/20. Ashley Loja, ELLY MILLSW
--- NOTE | 2019-06-19 10:48 | PN_ITS ---
Patient Problems: Active and Suspected Problems (Last Reviewed 06/08/19 @ 12:38 by Kaitlynn Boyle DO) Thrombocytopenia (Acute) Subtherapeutic international normalized ratio (INR) (Acute) Subjective: Tj was seen on TEAM rounds today. No family was present. AF VSS, BP is at higher end of normal and has intermittent systolic HTN. No lightheadedness. weight is stable and intake is good Maintaining appropriate oxygen saturation on RA. no problems that need addressed per nursing PT/OT notes reviewed and I was present for their presentations on rounds. He denies pain with weight bearing now after Epidural and starting scheduled Tramadol. He is not ready to be discharged home but, his Medicare days are up tomorrow and he will be going to TCU. All lab was personally reviewed. White blood cell count, hemoglobin are within normal limits. Platelets are mildly decreased at 145,000, more likely than not secondary to enoxaparin. BUN is increased to 33 and the creatinine is 1.08. Electrolytes are within normal limits. Calcium is normal. INR today is 1.5. Coumadin was restarted on 06/16/19 The blood sugar record was reviewed. Blood sugars are adequately controlled. No hypoglycemic episodes. - Physical Exam Vitals/I&O's: Vital Signs Temp Pulse Resp BP Pulse Ox 97.6 F L 64 16 134/83 H 98 06/19/19 07:07 06/19/19 08:12 06/19/19 07:07 06/19/19 08:12 06/19/19 07:07 Oxygen Delivery Method Room Air Weight: 248 lb 9.598 oz Body Mass Index (BMI) 40.1 Intake and Output for Last 24 Hours 06/17/19 06/18/19 06/19/19 23:59 23:59 23:59 Intake Total 1120 / 1120 1680 / 1680 540 / 540 Output Total 1974 / 1974 1750 / 1750 550 / 550 Balance -855 / -855 -70 / -70 -10 / -10 General: Alert, Oriented x3, Cooperative, No apparent distress, Well developed, Well nourished, - - sitting in the recliner at the bedside HEENT: Atraumatic, PERRLA, EOMI, Normocephalic Oral: No Gingival or Mucosal Lesions/ Ulcerations, Dry Mucosa Neck: Supple, No Nodes, Trachea Midline Lungs: Clear to auscultation Cardiovascular: Regular rate, Regular Rhythm, Normal S1, Normal S2, No murmurs, No rub noted, No Gallop Abdomen: Bowel Sounds Present, Soft, Non Tender, Non-Distended, Obese Extremities: No cyanosis, No edema, No Calf Tenderness Skin: No rashes, No breakdown Neurological: Cranial nerves II-XII grossly intact, Neuro grossly intact Psych/Mental Status: Normal Affect, Appropriate Laboratory Results 06/18/19 17:21: POC Glucose 178 H 06/19/19 05:36: WBC 5.3, RBC 4.14 L, Hgb 13.0, Hct 40.7, MCV 98.3 H, MCH 31.4, MCHC 31.9 L, RDW Std Deviation 49.2 H, RDW Coeff of Porter 13.6, Plt Count 145 L, MPV 9.6 06/19/19 05:36: Sodium 141, Potassium 4.8, Chloride 109 H, Carbon Dioxide 28.0, Anion Gap 4 L, BUN 33 H, Creatinine 1.08, Estim Creat Clear Calc 50.87, Est GFR (MDRD) Af Amer 85, Est GFR (MDRD) Non-Af 70, BUN/Creatinine Ratio 30.6 H, Glucose 136 H, Calcium 8.9 06/19/19 05:36: PT 17.6 H, INR 1.5 06/19/19 06:31: POC Glucose 116 H Current Medications Acetaminophen (Tylenol) 1,000 mg PO Q8 [facility] Last Admin: 06/19/19 06:20 Dose: 1,000 mg Documented by: Amlodipine Besylate (Norvasc) 2.5 mg PO Q12H PRN PRN PRN Reason: syst>150 DIST>85 Bisacodyl (Dulcolax) 10 mg RECTAL .PRN X 1 PRN PRN Reason: Constipation Calamine/Phenol (Calmoseptine Ointment) 1 applic TOPICAL BID@599,1999 [facility]; Protocol Last Admin: 06/19/19 06:21 Dose: 1 applicatio Documented by: Enoxaparin Sodium (Lovenox) 40 mg SC DAILY@0600 [facility] Last Admin: 06/19/19 06:21 Dose: 40 mg Documented by: Famotidine (Pepcid) 20 mg PO BID [facility] Last Admin: 06/19/19 08:12 Dose: 20 mg Documented by: Magnesium Hydroxide (Milk Of Magnesia) 30 ml PO .PRN X 1 PRN PRN Reason: Constipation Melatonin (Melatonin) 3 mg PO QHS [facility] Last Admin: 06/18/19 21:55 Dose: 3 mg Documented by: Metformin HCl (Glucophage) 500 mg PO DAILYCM [facility] Last Admin: 06/19/19 08:13 Dose: 500 mg Documented by: Metoprolol Tartrate (Lopressor (Beta Gilbert)) 25 mg PO BID [facility] Last Admin: 06/19/19 08:12 Dose: 25 mg Documented by: Multivitamins (Multivitamin) 1 tablet PO DAILY@0800 [facility] Last Admin: 06/19/19 08:13 Dose: 1 tablet Documented by: Pravastatin Sodium (Pravachol) 80 mg PO QHS [facility] Last Admin: 06/18/19 21:55 Dose: 80 mg Documented by: Prednisone () 5 mg PO DAILY@0800 [facility] Stop: 06/22/19 08:01 Last Admin: 06/19/19 08:13 Dose: 5 mg Documented by: Senna/Docusate Sodium (Senokot-S, Yokasta-Colace) 2 tablet PO BID [facility] Last Admin: 06/19/19 08:13 Dose: Not Given Documented by: Sodium Chloride () 10 - 40 ml IV UD PRN PRN Reason: SALINE FLUSH Tramadol HCl (Ultram) 50 mg PO BID@0800,1700 [facility] Last Admin: 06/19/19 08:13 Dose: 50 mg Documented by: Tramadol HCl (Ultram) 50 mg PO QHS [facility] Last Admin: 06/18/19 21:50 Dose: 50 mg Documented by: Warfarin Sodium (Coumadin (Pbkc)) 6 mg PO DAILY@1700 [facility] Last Admin: 06/18/19 17:34 Dose: 6 mg Documented by: Medical Necessity - Tobacco Use Smoking Status: Former smoker - quit in 1981 Tobacco Use: Non-smoker Assessment/Plan All Active Problems (Last Reviewed 06/08/19 @ 12:38 by Kaitlynn Boyle DO) Thrombocytopenia (Acute) Subtherapeutic international normalized ratio (INR) (Acute) Cellulitis of lower extremity (Resolved) Decubitus ulcer of right buttock, stage 2 (Resolved) Edema of lower extremity (Resolved) Nonhealing nonsurgical wound with fat layer exposed (Resolved) Peripheral vascular disease of lower extremity with ulceration (Resolved) Impressions 1. 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 Pain is controlled at present with Tramadol TID and he had an epidural. I recommended he continue to follow up with Dr. Ortiz for pain management. 2. spinal canal stenosis at T11-12 and L3-4 3. Degenerative disc disease 4. Morbid obesity - weight loss advised 5. DM II - well controlled 6. PAF - in NSR since admission 7. thrombocytopenia - more likely than not due to Lovenox 8. WANDA - had been non-compliant with CPAP however he is wearing the CPAP in the hospital and he feels better so he plans on wearing it when discharged 9. Bradycardia - resolved with decreasing the dose of the Metoprolol 10. Pulmonary HTN -more likely than not secondary to untreated WANDA 11. Hx of Diastolic CHF with preserved ejection fraction 12. Osteoarthritis 13. Chronic pain syndrome 14. Hypogonadism 15. 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 Pt was on a steroid taper for lung problems and when he entered the hospital the taper stopped at 20 mg and he was on 20 mg daily......he is currently on 5 mg daily for 1 week and then will decrease to 2.5 mg daily for 1 week 17. HTN - BP's have increased with the decrease in the Metoprolol dose for bradycardia. Will add Norvasc 2.5 mg and continue to monitor the BP's DC the Enoxaparin when the INR is greater than 1.6. He will look into getting Grab bars in his shower. He was given a phone contact for someone to put grab bars in his house for him. He has a ramp at home. Will follow with Dr. Ortiz at [place] Code Visit Inpatient E&M: 83945 Subs Hosp L2
[2019-06-19] MEDS: amLODIPine 2.5 MG Tablet PO (14:56)
--- NOTE | 2019-06-19 15:59 | NURSING ---
pt's daughter informed this nurse that Dr Carney office canceled pt's appt for 06/21 and had pt's daughter tell this nurse to put in a consult and Dr Carney will come to the unit to see the pt. Consult entered. will make Dr Boyle aware.
[2019-06-19 17:01] LABS: Bedside Glucose 142 mg/dL (70-110)
[2019-06-19 18:38] VITALS: BP 142/75; PULSE 78; RESP 18; TEMP 36.6; O2SAT 98
[2019-06-19 21:58] VITALS: PULSE 74
[2019-06-19] MEDS: Senna/Docusate Sodium 1 Tablet 2 TABLET PO (21:59)
[2019-06-19] MEDS: MELATONIN 3 MG TABLET PO (21:59)
[2019-06-19] MEDS: Pravastatin 80 MG Tablet PO (21:59)
[2019-06-19 22:00] VITALS: PULSE 78; RESP 18; O2SAT 98
[2019-06-20] MEDS: Enoxaparin 40 MG/0.4 ML Syringe SC (06:19)
[2019-06-20] MEDS: Menthol/Lanolin/Calamine/Znox 113 GM Tube 1 APPLIC TOPICAL (06:19)
[2019-06-20] MEDS: Acetaminophen 500 MG Tablet 1000 MG PO ×2 (06:20→13:03)
[2019-06-20 06:44] LABS: International Normalized Ratio 1.6
[2019-06-20 07:06] LABS: Bedside Glucose 125 mg/dL (70-110)
[2019-06-20 07:52] VITALS: PULSE 66
[2019-06-20] MEDS: Famotidine 20 MG Tablet PO (07:52)
[2019-06-20] MEDS: Metoprolol Tartrate 25 MG Tablet PO (07:52)
[2019-06-20] MEDS: predniSONE 5 MG Tablet PO (07:53)
[2019-06-20] MEDS: metFORMIN HCl 500 MG Tablet PO (07:53)
[2019-06-20] MEDS: Multivitamins,Therapeutic Tablet 1 TABLET PO (07:53)
[2019-06-20 08:00] VITALS: BP 142/58; PULSE 90; RESP 16; TEMP 36.8; O2SAT 98
[2019-06-20] MEDS: traMADol 50 MG Tablet PO (08:02)
--- NOTE | 2019-06-20 08:29 | PCM.TXEXTCAR ---
- Diet 06/14/19 17:04 Diet: Calorie Controlled Is pt able to select menu?: Yes How many daily calories?: 1800 calorie - Routine Orders/Code Status Enema Type: Fleetz Enema Frequency: Daily PRN Suppository Type: Dulcolax 10mg Suppository Frequency: Daily PRN O2 Liters per Minute: 1-2 O2 Frequency: PRN Keep PO Greater than or Equal to (%): 90 Routine Lab Work: - - daily PT/INR until the INR is 2 or geater and stable for 2 days Code Status: [facility] - Wound(s) l wrist Wound Type: Skin Tear r wrist Wound Type: Skin Tear lower back Wound Type: INJECTION SITE - Therapies Weight Bearing: Full weight bearing Extremity Affected:: Bilateral Lower Physical Therapy: Eval and Treat Occupational Therapy: Eval and Treat - Problem/Diagnosis (1) Bradycardia Status: Resolved Comment: resolved with decrease in the Metoprolol dose Current Visit: Yes (2) Morbid obesity Status: Chronic Current Visit: Yes (3) Lumbar canal stenosis Status: Chronic Current Visit: Yes (4) On amiodarone therapy Status: Chronic Current Visit: No (5) History of right and left heart catheterization Status: Chronic Comment: Normal Left Ventricular systolic function; LVEF: by LV gram 65 %; Elevated Left Ventricular End Diastolic Pressure; Non obstructive coronary arteries; The patient has pulmonary hypertension which is moderate. 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: Chronic Current Visit: No (13) Thrombocytopenia Status: Acute Comment: mild and more likely than not due to Enoxaparin for DVT prophylaxis Current Visit: Yes (14) Subtherapeutic international normalized ratio (INR) Status: Acute Current Visit: Yes (15) Hypogonadism Status: Chronic Current Visit: Yes (16) Obstructive sleep apnea Status: Chronic Comment: was not compliant with CPAP at home but, he is wearing it in the hospital and admits he feels better and sleeps better Current Visit: Yes - Allergies/Procedures Done in Hospital Allergies/Adverse Reactions: Allergies naproxen [From Naprosyn] Allergy (Unknown, Verified 06/03/19 15:36) Hives codeine Allergy (Verified 06/03/19 15:36) Hives gabapentin Allergy (Verified 06/03/19 15:36) Hives hydrocodone [From Vicodin] Allergy (Verified 06/03/19 15:36) Hives levofloxacin [From Levaquin] Allergy (Verified 06/03/19 15:36) Hives lisinopril Allergy (Verified 06/03/19 15:36) Hives morphine Allergy (Verified 06/03/19 15:36) Hives sertraline [From Zoloft] Allergy (Verified 06/03/19 15:36) Hives simvastatin [From Zocor] Allergy (Verified 06/03/19 15:36) Hives sulfamethoxazole Allergy (Verified 06/03/19 15:36) Hives Procedures: - - BL sacroiliac joint injections on 06/15/[address] Ortiz - Type of Care/Length of Stay Estimated LOS: Convalescent Care Less Than 30 days Type of Care Needed: Skilled Rehab Potential: Good Prognosis: Good - Additional Orders/Day of Discharge H&P will serve as current which was dated: 06/08/19 Day of Discharge: 06/20/19 - Dietary and Speech Recommendations Dietitian Recommendations/Changes: Rec continue 1800 Calorie Controlled diet. No recommendations at this time. Please Consult if needs change. - Follow Up Care Primary Care Physician: Chiki Brooks MD [Primary Care Provider] - Please follow up with your Primary Care Physician in: 1 week following DC from TCU Please Follow Up With: Catherine Ortiz MD When: 1 month after DC from TCU
--- NOTE | 2019-06-20 08:37 | PCM.DC.SUM ---
Discharge Date and Diagnosis Date of Admission: 06/07/19 Date of Discharge: 06/20/19 - Primary Discharge Diagnosis Active and Suspected Problems (Last Reviewed 06/08/19 @ 12:38 by Kaitlynn Boyle DO) Debility due to acute exacerbation of chronic back pain due to spinal canal stenosis, DDD and DJD Thrombocytopenia (Acute) mild and more likely than not due to Enoxaparin for DVT prophylaxis Subtherapeutic international normalized ratio (INR) (Acute) - Secondary Discharge Diagnosis Chronic Problems (Last Reviewed 06/08/19 @ 12:38 by Kaitlynn Boyle DO) Morbid obesity (Chronic) Lumbar canal stenosis (Chronic) Hypogonadism (Chronic) Obstructive sleep apnea (Chronic) was not compliant with CPAP at home but, he is wearing it in the hospital and admits he feels better and sleeps better On amiodarone therapy (Chronic) for PAF History of right and left heart catheterization (Chronic 02/14/19) Normal Left Ventricular systolic function; LVEF: by LV gram 65 %; Elevated Left Ventricular End Diastolic Pressure; Non obstructive coronary arteries; The patient has pulmonary hypertension which is moderate. 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 Electronically Signed: Kiel Romero, at 8:08 EST , Service support , Laboratory Tests 06/20/19 06/20/19 06/19/19 Range/Units 06:26 06:19 16:43 WBC (4.4-11.0) K/mm3 RBC (4.6-6.2) M/mm3 Hgb (13.0-16.5) g/dL Hct (40-54) % MCV (80-94) fL MCH (27.0-32.0) pg MCHC (32-36) g/dL RDW Std Deviation (35.1-43.9) fl RDW Coeff of Porter (11.6-14.6) % Plt Count (150-450) K/mm3 MPV (6.2-12.0) fl PT 19.0 H (11.7-14.9) SECONDS INR 1.6 Sodium (136-145) mmol/L Potassium (3.5-5.1) mmol/L Chloride (98-107) mmol/L Carbon Dioxide (21.0-32.0) mmol/L Anion Gap (5-15) BUN (7-18) mg/dL Creatinine (0.70-1.30) mg/dL Estim Creat Clear Calc ml/min Est GFR (MDRD) Af Amer (>60) mL/min Est GFR (MDRD) Non-Af (>60) mL/min BUN/Creatinine Ratio (10-20) RATIO Glucose (74-106) mg/dL Calcium (8.5-10.1) mg/dL POC Glucose 125 H 142 H (70-110) mg/dL 06/19/19 06/19/19 06/19/19 Range/Units 06:31 05:36 05:36 WBC (4.4-11.0) K/mm3 RBC (4.6-6.2) M/mm3 Hgb (13.0-16.5) g/dL Hct (40-54) % MCV (80-94) fL MCH (27.0-32.0) pg MCHC (32-36) g/dL RDW Std Deviation (35.1-43.9) fl RDW Coeff of Porter (11.6-14.6) % Plt Count (150-450) K/mm3 MPV (6.2-12.0) fl PT 17.6 H (11.7-14.9) SECONDS INR 1.5 Sodium 141 (136-145) mmol/L Potassium 4.8 (3.5-5.1) mmol/L Chloride 109 H (98-107) mmol/L Carbon Dioxide 28.0 (21.0-32.0) mmol/L Anion Gap 4 L (5-15) BUN 33 H (7-18) mg/dL Creatinine 1.08 (0.70-1.30) mg/dL Estim Creat Clear Calc 50.87 ml/min Est GFR (MDRD) Af Amer 85 (>60) mL/min Est GFR (MDRD) Non-Af 70 (>60) mL/min BUN/Creatinine Ratio 30.6 H (10-20) RATIO Glucose 136 H (74-106) mg/dL Calcium 8.9 (8.5-10.1) mg/dL POC Glucose 116 H (70-110) mg/dL 06/19/19 06/18/19 06/18/19 Range/Units 05:36 17:21 08:24 WBC 5.3 (4.4-11.0) K/mm3 RBC 4.14 L (4.6-6.2) M/mm3 Hgb 13.0 (13.0-16.5) g/dL Hct 40.7 (40-54) % MCV 98.3 H (80-94) fL MCH 31.4 (27.0-32.0) pg MCHC 31.9 L (32-36) g/dL RDW Std Deviation 49.2 H (35.1-43.9) fl RDW Coeff of Porter 13.6 (11.6-14.6) % Plt Count 145 L (150-450) K/mm3 MPV 9.6 (6.2-12.0) fl PT 16.3 H (11.7-14.9) SECONDS INR 1.3 Sodium (136-145) mmol/L Potassium (3.5-5.1) mmol/L Chloride (98-107) mmol/L Carbon Dioxide (21.0-32.0) mmol/L Anion Gap (5-15) BUN (7-18) mg/dL Creatinine (0.70-1.30) mg/dL Estim Creat Clear Calc ml/min Est GFR (MDRD) Af Amer (>60) mL/min Est GFR (MDRD) Non-Af (>60) mL/min BUN/Creatinine Ratio (10-20) RATIO Glucose (74-106) mg/dL Calcium (8.5-10.1) mg/dL POC Glucose 178 H (70-110) mg/dL 06/18/19 06/17/19 06/17/19 Range/Units 06:42 17:08 07:28 WBC (4.4-11.0) K/mm3 RBC (4.6-6.2) M/mm3 Hgb (13.0-16.5) g/dL Hct (40-54) % MCV (80-94) fL MCH (27.0-32.0) pg MCHC (32-36) g/dL RDW Std Deviation (35.1-43.9) fl RDW Coeff of Porter (11.6-14.6) % Plt Count (150-450) K/mm3 MPV (6.2-12.0) fl PT 14.5 (11.7-14.9) SECONDS INR 1.2 Sodium (136-145) mmol/L Potassium (3.5-5.1) mmol/L Chloride (98-107) mmol/L Carbon Dioxide (21.0-32.0) mmol/L Anion Gap (5-15) BUN (7-18) mg/dL Creatinine (0.70-1.30) mg/dL Estim Creat Clear Calc ml/min Est GFR (MDRD) Af Amer (>60) mL/min Est GFR (MDRD) Non-Af (>60) mL/min BUN/Creatinine Ratio (10-20) RATIO Glucose (74-106) mg/dL Calcium (8.5-10.1) mg/dL POC Glucose 124 H 184 H (70-110) mg/dL 06/17/19 06/16/19 06/16/19 Range/Units 06:25 17:05 06:01 WBC (4.4-11.0) K/mm3 RBC (4.6-6.2) M/mm3 Hgb (13.0-16.5) g/dL Hct (40-54) % MCV (80-94) fL MCH (27.0-32.0) pg MCHC (32-36) g/dL RDW Std Deviation (35.1-43.9) fl RDW Coeff of Porter (11.6-14.6) % Plt Count (150-450) K/mm3 MPV (6.2-12.0) fl PT (11.7-14.9) SECONDS INR Sodium (136-145) mmol/L Potassium (3.5-5.1) mmol/L Chloride (98-107) mmol/L Carbon Dioxide (21.0-32.0) mmol/L Anion Gap (5-15) BUN (7-18) mg/dL Creatinine (0.70-1.30) mg/dL Estim Creat Clear Calc ml/min Est GFR (MDRD) Af Amer (>60) mL/min Est GFR (MDRD) Non-Af (>60) mL/min BUN/Creatinine Ratio (10-20) RATIO Glucose (74-106) mg/dL Calcium (8.5-10.1) mg/dL POC Glucose 121 H 137 H 143 H (70-110) mg/dL 06/15/19 06/15/19 06/14/19 Range/Units 16:10 07:08 16:46 WBC (4.4-11.0) K/mm3 RBC (4.6-6.2) M/mm3 Hgb (13.0-16.5) g/dL Hct (40-54) % MCV (80-94) fL MCH (27.0-32.0) pg MCHC (32-36) g/dL RDW Std Deviation (35.1-43.9) fl RDW Coeff of Porter (11.6-14.6) % Plt Count (150-450) K/mm3 MPV (6.2-12.0) fl PT (11.7-14.9) SECONDS INR Sodium (136-145) mmol/L Potassium (3.5-5.1) mmol/L Chloride (98-107) mmol/L Carbon Dioxide (21.0-32.0) mmol/L Anion Gap (5-15) BUN (7-18) mg/dL Creatinine (0.70-1.30) mg/dL Estim Creat Clear Calc ml/min Est GFR (MDRD) Af Amer (>60) mL/min Est GFR (MDRD) Non-Af (>60) mL/min BUN/Creatinine Ratio (10-20) RATIO Glucose (74-106) mg/dL Calcium (8.5-10.1) mg/dL POC Glucose 180 H 154 H 110 (70-110) mg/dL 06/14/19 06/14/19 06/13/19 Range/Units 06:00 04:55 16:57 WBC (4.4-11.0) K/mm3 RBC (4.6-6.2) M/mm3 Hgb (13.0-16.5) g/dL Hct (40-54) % MCV (80-94) fL MCH (27.0-32.0) pg MCHC (32-36) g/dL RDW Std Deviation (35.1-43.9) fl RDW Coeff of Porter (11.6-14.6) % Plt Count (150-450) K/mm3 MPV (6.2-12.0) fl PT 15.2 H (11.7-14.9) SECONDS INR 1.2 Sodium (136-145) mmol/L Potassium (3.5-5.1) mmol/L Chloride (98-107) mmol/L Carbon Dioxide (21.0-32.0) mmol/L Anion Gap (5-15) BUN (7-18) mg/dL Creatinine (0.70-1.30) mg/dL Estim Creat Clear Calc ml/min Est GFR (MDRD) Af Amer (>60) mL/min Est GFR (MDRD) Non-Af (>60) mL/min BUN/Creatinine Ratio (10-20) RATIO Glucose (74-106) mg/dL Calcium (8.5-10.1) mg/dL POC Glucose 98 128 H (70-110) mg/dL 06/13/19 06/12/19 06/12/19 Range/Units 05:25 17:04 10:05 WBC (4.4-11.0) K/mm3 RBC (4.6-6.2) M/mm3 Hgb (13.0-16.5) g/dL Hct (40-54) % MCV (80-94) fL MCH (27.0-32.0) pg MCHC (32-36) g/dL RDW Std Deviation (35.1-43.9) fl RDW Coeff of Porter (11.6-14.6) % Plt Count (150-450) K/mm3 MPV (6.2-12.0) fl PT 18.4 H (11.7-14.9) SECONDS INR 1.5 Sodium (136-145) mmol/L Potassium (3.5-5.1) mmol/L Chloride (98-107) mmol/L Carbon Dioxide (21.0-32.0) mmol/L Anion Gap (5-15) BUN (7-18) mg/dL Creatinine (0.70-1.30) mg/dL Estim Creat Clear Calc ml/min Est GFR (MDRD) Af Amer (>60) mL/min Est GFR (MDRD) Non-Af (>60) mL/min BUN/Creatinine Ratio (10-20) RATIO Glucose (74-106) mg/dL Calcium (8.5-10.1) mg/dL POC Glucose 101 121 H (70-110) mg/dL 06/12/19 06/11/19 06/11/19 Range/Units 06:59 16:05 06:25 WBC (4.4-11.0) K/mm3 RBC (4.6-6.2) M/mm3 Hgb (13.0-16.5) g/dL Hct (40-54) % MCV (80-94) fL MCH (27.0-32.0) pg MCHC (32-36) g/dL RDW Std Deviation (35.1-43.9) fl RDW Coeff of Porter (11.6-14.6) % Plt Count (150-450) K/mm3 MPV (6.2-12.0) fl PT (11.7-14.9) SECONDS INR Sodium (136-145) mmol/L Potassium (3.5-5.1) mmol/L Chloride (98-107) mmol/L Carbon Dioxide (21.0-32.0) mmol/L Anion Gap (5-15) BUN (7-18) mg/dL Creatinine (0.70-1.30) mg/dL Estim Creat Clear Calc ml/min Est GFR (MDRD) Af Amer (>60) mL/min Est GFR (MDRD) Non-Af (>60) mL/min BUN/Creatinine Ratio (10-20) RATIO Glucose (74-106) mg/dL Calcium (8.5-10.1) mg/dL POC Glucose 122 H 171 H 113 H (70-110) mg/dL 06/11/19 06/10/19 06/10/19 Range/Units 05:31 16:24 07:23 WBC (4.4-11.0) K/mm3 RBC (4.6-6.2) M/mm3 Hgb (13.0-16.5) g/dL Hct (40-54) % MCV (80-94) fL MCH (27.0-32.0) pg MCHC (32-36) g/dL RDW Std Deviation (35.1-43.9) fl RDW Coeff of Porter (11.6-14.6) % Plt Count (150-450) K/mm3 MPV (6.2-12.0) fl PT 20.8 H 24.4 H (11.7-14.9) SECONDS INR 1.8 2.2 Sodium (136-145) mmol/L Potassium (3.5-5.1) mmol/L Chloride (98-107) mmol/L Carbon Dioxide (21.0-32.0) mmol/L Anion Gap (5-15) BUN (7-18) mg/dL Creatinine (0.70-1.30) mg/dL Estim Creat Clear Calc ml/min Est GFR (MDRD) Af Amer (>60) mL/min Est GFR (MDRD) Non-Af (>60) mL/min BUN/Creatinine Ratio (10-20) RATIO Glucose (74-106) mg/dL Calcium (8.5-10.1) mg/dL POC Glucose 140 H (70-110) mg/dL 06/10/19 06/09/19 06/09/19 Range/Units 05:59 16:24 06:11 WBC (4.4-11.0) K/mm3 RBC (4.6-6.2) M/mm3 Hgb (13.0-16.5) g/dL Hct (40-54) % MCV (80-94) fL MCH (27.0-32.0) pg MCHC (32-36) g/dL RDW Std Deviation (35.1-43.9) fl RDW Coeff of Porter (11.6-14.6) % Plt Count (150-450) K/mm3 MPV (6.2-12.0) fl PT (11.7-14.9) SECONDS INR Sodium (136-145) mmol/L Potassium (3.5-5.1) mmol/L Chloride (98-107) mmol/L Carbon Dioxide (21.0-32.0) mmol/L Anion Gap (5-15) BUN (7-18) mg/dL Creatinine (0.70-1.30) mg/dL Estim Creat Clear Calc ml/min Est GFR (MDRD) Af Amer (>60) mL/min Est GFR (MDRD) Non-Af (>60) mL/min BUN/Creatinine Ratio (10-20) RATIO Glucose (74-106) mg/dL Calcium (8.5-10.1) mg/dL POC Glucose 103 164 H 106 (70-110) mg/dL 06/09/19 06/08/19 06/08/19 Range/Units 05:32 16:54 11:46 WBC (4.4-11.0) K/mm3 RBC (4.6-6.2) M/mm3 Hgb (13.0-16.5) g/dL Hct (40-54) % MCV (80-94) fL MCH (27.0-32.0) pg MCHC (32-36) g/dL RDW Std Deviation (35.1-43.9) fl RDW Coeff of Porter (11.6-14.6) % Plt Count (150-450) K/mm3 MPV (6.2-12.0) fl PT 22.9 H (11.7-14.9) SECONDS INR 2.0 Sodium (136-145) mmol/L Potassium (3.5-5.1) mmol/L Chloride (98-107) mmol/L Carbon Dioxide (21.0-32.0) mmol/L Anion Gap (5-15) BUN (7-18) mg/dL Creatinine (0.70-1.30) mg/dL Estim Creat Clear Calc ml/min Est GFR (MDRD) Af Amer (>60) mL/min Est GFR (MDRD) Non-Af (>60) mL/min BUN/Creatinine Ratio (10-20) RATIO Glucose (74-106) mg/dL Calcium (8.5-10.1) mg/dL POC Glucose 174 H 127 H (70-110) mg/dL 06/08/19 06/07/19 06/07/19 Range/Units 06:56 22:04 16:19 WBC (4.4-11.0) K/mm3 RBC (4.6-6.2) M/mm3 Hgb (13.0-16.5) g/dL Hct (40-54) % MCV (80-94) fL MCH (27.0-32.0) pg MCHC (32-36) g/dL RDW Std Deviation (35.1-43.9) fl RDW Coeff of Porter (11.6-14.6) % Plt Count (150-450) K/mm3 MPV (6.2-12.0) fl PT (11.7-14.9) SECONDS INR Sodium (136-145) mmol/L Potassium (3.5-5.1) mmol/L Chloride (98-107) mmol/L Carbon Dioxide (21.0-32.0) mmol/L Anion Gap (5-15) BUN (7-18) mg/dL Creatinine (0.70-1.30) mg/dL Estim Creat Clear Calc ml/min Est GFR (MDRD) Af Amer (>60) mL/min Est GFR (MDRD) Non-Af (>60) mL/min BUN/Creatinine Ratio (10-20) RATIO Glucose (74-106) mg/dL Calcium (8.5-10.1) mg/dL POC Glucose 107 186 H 190 H (70-110) mg/dL Dr. Catherine Ortiz - pain management Operations: None Procedures: - - BL Sacroiliac injections on 06/15/[address] Ortiz Summary of Care Provided: The pt is a 78-year-old male with a PMH of diabetes mellitus type 2, morbid obesity, atrial fibrillation, chronic anticoagulation with warfarin, hypogonadism, bradycardia, diastolic congestive HF and osteoarthritis admitted to the Inpatient rehab unit at [facility] on 06/07/2019 for debility secondary to acute exacerbation of chronic back pain with recent falls and inability to ambulate secondary to pain for greater than 3 hours of therapy daily with a goal of returning home at or near prior level of independence. He lives with his spouse and has no steps at home. There is an entry ramp. He was independent with ADLs, mobility and driving prior to admission. Back pain was minimal when he was sitting in a chair but escalated significantly with weightbearing. Dr. Catherine Ortiz was consulted for pain management. The patient had never had an epidural before and had not seen neurosurgery. He was scheduled for bilateral sacroiliac joint injections on 06/14/2019. 48 hours after injection he experienced significant pain relief and ambulation was much more comfortable. Warfarin was restarted on 06/16/2019 and daily INRs were followed. He progressed well in physical therapy but did not feel strong enough to go home yet. He was transferred to the transitional care unit for ongoing PT/OT prior to returning to his home. Alert and oriented x3 Lungs-clear to auscultation Heart-regular rate and rhythm, no murmur, no gallop, no rub Abdomen-obese, soft, nontender, nondistended, normal bowel sounds heard in all 4 quadrants, no guarding with palpation No peripheral edema This note was generated with [employer] dictation software. It may contain incorrect words, spelling, and punctuation that were not noted in checking the note before signing. - Physical Exam Vitals/I&O's: Vital Signs Temp Pulse Resp BP Pulse Ox 98.2 F 90 16 142/58 H 98 06/20/19 08:00 06/20/19 08:00 06/20/19 08:00 06/20/19 08:00 06/20/19 08:00 Oxygen Delivery Method Room Air Weight: 248 lb 9.598 oz Body Mass Index (BMI) 40.1 Intake and Output for Last 24 Hours 06/18/19 06/19/19 06/20/19 23:59 23:59 23:59 Intake Total 1680 / 1680 1650 / 1650 Output Total 1750 / 1750 1625 / 1625 Balance -70 / -70 25 / 25 Laboratory Results 06/19/19 16:43: POC Glucose 142 H 06/20/19 06:19: POC Glucose 125 H 06/20/19 06:26: PT 19.0 H, INR 1.6 Current Medications Acetaminophen (Tylenol) 1,000 mg PO Q8 [facility] Last Admin: 06/20/19 06:20 Dose: 1,000 mg Documented by: Amlodipine Besylate (Norvasc) 2.5 mg PO DAILY [facility] Last Admin: 06/19/19 14:56 Dose: 2.5 mg Documented by: Bisacodyl (Dulcolax) 10 mg RECTAL .PRN X 1 PRN PRN Reason: Constipation Calamine/Phenol (Calmoseptine Ointment) 1 applic TOPICAL BID@0600,1999 [facility]; Protocol Last Admin: 06/20/19 06:19 Dose: 1 applicatio Documented by: Enoxaparin Sodium (Lovenox) 40 mg SC DAILY@0600 [facility] Last Admin: 06/20/19 06:19 Dose: 40 mg Documented by: Famotidine (Pepcid) 20 mg PO BID [facility] Last Admin: 06/20/19 07:52 Dose: 20 mg Documented by: Magnesium Hydroxide (Milk Of Magnesia) 30 ml PO .PRN X 1 PRN PRN Reason: Constipation Melatonin (Melatonin) 3 mg PO QHS [facility] Last Admin: 06/19/19 21:59 Dose: 3 mg Documented by: Metformin HCl (Glucophage) 500 mg PO DAILYCM [facility] Last Admin: 06/20/19 07:53 Dose: 500 mg Documented by: Metoprolol Tartrate (Lopressor (Beta Gilbert)) 25 mg PO BID [facility] Last Admin: 06/20/19 07:52 Dose: 25 mg Documented by: Multivitamins (Multivitamin) 1 tablet PO DAILY@0800 [facility] Last Admin: 06/20/19 07:53 Dose: 1 tablet Documented by: Pravastatin Sodium (Pravachol) 80 mg PO QHS [facility] Last Admin: 06/19/19 21:59 Dose: 80 mg Documented by: Prednisone () 5 mg PO DAILY@0800 [facility] Stop: 06/22/19 08:01 Last Admin: 06/20/19 07:53 Dose: 5 mg Documented by: Senna/Docusate Sodium (Senokot-S, Yokasta-Colace) 2 tablet PO BID [facility] Last Admin: 06/20/19 07:54 Dose: Not Given Documented by: Sodium Chloride () 10 - 40 ml IV UD PRN PRN Reason: SALINE FLUSH Tramadol HCl (Ultram) 50 mg PO BID@0800,1700 [facility] Last Admin: 06/20/19 08:02 Dose: 50 mg Documented by: Tramadol HCl (Ultram) 50 mg PO QHS [facility] Last Admin: 06/19/19 22:01 Dose: 50 mg Documented by: Warfarin Sodium (Coumadin (Pbkc)) 6 mg PO DAILY@1700 [facility] Last Admin: 06/19/19 16:44 Dose: 6 mg Documented by: Warfarin Sodium (Coumadin (Pbkc)) 4 mg PO X1 ONE Stop: 06/20/19 17:01 Home Medications: Medications to take at Discharge Metoprolol Tartrate [Lopressor (beta gilbert)] 50 mg PO BID 05/20/18 Pravastatin [Pravachol] 80 mg PO QHS 05/20/18 metFORMIN HCl [Glucophage] 500 mg PO DAILY 05/20/18 Multivitamin [Multiple Vitamins] 1 ea PO DAILY 08/19/18 Melatonin 3 mg PO QHS 06/20/19 Menthol/Lanolin/Calamine/Znox [Calmoseptine Ointment] 1 applic TOPICAL BID@0600,199906/20/19 Acetaminophen [Tylenol] 1,000 mg PO BID PRN PRN tab 07/03/19 Amlodipine [Norvasc] 2.5 mg PO DAILY #30 tab 07/03/19 Warfarin [Coumadin] 6.5 mg PO DAILY@1700 tab 07/03/19 Primary Care Physician: Chiki Brooks MD [Primary Care Provider] - Please follow up with your Primary Care Physician in: 1 week following DC from TCU Please Follow Up With: Catherine Ortiz MD When: 1 month after DC from TCU Disposition: [facility] facility - TCU Minutes spent on discharge:: 35 Patient Condition:: Stable - improved pain and good progress with PT/OT. Transferred to TCU for additional strengthening prior to returnng home. Medical Necessity - Tobacco Use Smoking Status: Former smoker - quit in 1981 Tobacco Use: Non-smoker Meaningful Use Info Meaningful Use Diagnoses (Choose all that apply): None applicable Code Visit Inpatient E&M: 44791 Disch Hosp
[2019-06-20] MEDS: amLODIPine 2.5 MG Tablet PO (10:29)
--- NOTE | 2019-06-20 13:15 | NURSING ---
Report given to TCU. Patient discharged.
== END 2019-06-20 13:15 | disposition skilled nursing facility (03) | DRG 552 ==
PROVIDERS: Admitting Provider Internal Medicine; Family Provider Family Medicine; PCP Family Medicine; Referring Provider Anesthesiology Pain Medicine; Visit Provider Hospitalist
PROC: 3E0U3GC Introduction of Other Therapeutic Substance into Joints, Percutaneous Approach (ICD-10-PCS; CPT 27096; principal; 2019-06-14 12:35)
DX: M48.061 Spinal stenosis, lumbar region without neurogenic claudication (principal); I48.20 Chronic atrial fibrillation, unspecified; I50.32 Chronic diastolic (congestive) heart failure; Z68.41 Body mass index [BMI] 40.0-44.9, adult; M48.04 Spinal stenosis, thoracic region; G89.4 Chronic pain syndrome; E66.01 Morbid (severe) obesity due to excess calories; Z91.19 Patient's noncompliance with other medical treatment and regimen; G47.33 Obstructive sleep apnea (adult) (pediatric); I11.0 Hypertensive heart disease with heart failure; I48.0 Paroxysmal atrial fibrillation; I27.20 Pulmonary hypertension, unspecified; E78.5 Hyperlipidemia, unspecified; M19.90 Unspecified osteoarthritis, unspecified site; E11.51 Type 2 diabetes mellitus with diabetic peripheral angiopathy without gangrene; Z91.81 History of falling; Z87.891 Personal history of nicotine dependence; D69.6 Thrombocytopenia, unspecified; R79.1 Abnormal coagulation profile; M46.1 Sacroiliitis, not elsewhere classified
CPT/HCPCS: 36415; 64483; 72202; 80048; 82962; 85027; 85610; 97110; 97116; 97162; 97166; 97530; 97535; 97802; 99251; J7120; G0463

== ENCOUNTER 2019-06-20 13:30 | Inpatient (IN) | payer MEDICARE, OTHER, SELFPAY ==
[2019-06-14 12:37] VITALS: BMI 40.1
[2019-06-20 14:01] VITALS: BP 121/82; PULSE 62; RESP 16; TEMP 36.3; O2SAT 97
[2019-06-20 14:07] VITALS: BMI 40.4
[2019-06-20 14:08] VITALS: BMI 40.4
[2019-06-20] MEDS: Acetaminophen 500 MG Tablet 1000 MG PO (17:23)
[2019-06-20] MEDS: Senna/Docusate Sodium 1 Tablet 2 TABLET PO (17:23)
[2019-06-20 17:24] VITALS: PULSE 62
[2019-06-20] MEDS: Metoprolol Tartrate 50 MG Tablet PO (17:24)
[2019-06-20] MEDS: traMADol 50 MG Tablet PO ×2 (17:27→20:36)
--- NOTE | 2019-06-20 19:36 | PCM.HP.STD ---
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 The patient is a 78 year old Male with below past medical history with followin06/07/2019 Admit to Inpatient Rehabilitation with debility secondary to exacerbation of chronic back pain. Back pain improved with epidural steroid injection, scheduled Tramadol. Follow up with Dr. Ortiz as outpatient. Thrombocytopenia secondary to Lovenox. Compliant with CPAP inpatient, but not compliant at home. Bradycardia improved with decreasing Metoprolol dose. Continue coumadinization for atrial fibrillation. Taper off prednisone slowly. Amlodipine 2.5MG added for improved blood pressure control. 06/20/2019 Admit to TCU with debility, here for rehabilitation, strengthening, prior to discharge home with . Past Medical History Past Medical History (Chronic Problems): Chronic Problems (Last Reviewed 06/08/19 @ 12:38 by Kaitlynn Boyle DO) Morbid obesity (Chronic) Lumbar canal stenosis (Chronic) Hypogonadism (Chronic) Obstructive sleep apnea (Chronic) was not compliant with CPAP at home but, he is wearing it in the hospital and admits he feels better and sleeps better Body mass index (BMI) 40.0-44.9, adult (Chronic) Chronic diastolic (congestive) heart failure (Chronic) Chronic pain (Chronic) Hyperlipidemia (Chronic) Moderate pulmonary arterial systolic hypertension (Chronic) On amiodarone therapy (Chronic) History of right and left heart catheterization (Chronic 02/14/19) Normal Left Ventricular systolic function; LVEF: by LV gram 65 %; Elevated Left Ventricular End Diastolic Pressure; Non obstructive coronary arteries; The patient has pulmonary hypertension which is moderate. 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) Medical History: Medical History (Last Reviewed 06/08/19 @ 12:38 by Kaitlynn Boyle DO) On amiodarone therapy (Chronic) Z79.899 Diabetes type 2, controlled (Chronic) E11.9 Chronic pain disorder (Chronic) G89.4 Osteoarthritis (Chronic) M19.90 penitentiary (current) use of anticoagulants (Chronic) Z79.01 Warfarin 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 Allergies naproxen [From Naprosyn] Allergy (Unknown, Verified 06/03/19 15:36) Hives codeine Allergy (Verified 06/03/19 15:36) Hives gabapentin Allergy (Verified 06/03/19 15:36) Hives hydrocodone [From Vicodin] Allergy (Verified 06/03/19 15:36) Hives levofloxacin [From Levaquin] Allergy (Verified 06/03/19 15:36) Hives lisinopril Allergy (Verified 06/03/19 15:36) Hives morphine Allergy (Verified 06/03/19 15:36) Hives sertraline [From Zoloft] Allergy (Verified 06/03/19 15:36) Hives simvastatin [From Zocor] Allergy (Verified 06/03/19 15:36) Hives sulfamethoxazole Allergy (Verified 06/03/19 15:36) Hives Home Medications: Ambulatory Orders Medication Instructions Recorded Metoprolol Tartrate [Lopressor 50 mg PO BID 05/20/18 (beta gilbert)] Pravastatin [Pravachol] 80 mg PO QHS 05/20/18 metFORMIN HCl [Glucophage] 500 mg PO DAILY 05/20/18 Multivitamin [Multiple Vitamins] 1 ea PO DAILY 08/19/18 Magnesium Hydroxide [Milk Of 30 ml PO DAILY PRN udc 06/07/19 Magnesia] Acetaminophen [Tylenol] 1,000 mg PO BID 06/20/19 Amlodipine [Norvasc] 2.5 mg PO DAILY 06/20/19 Bisacodyl [Dulcolax] 10 mg RECTAL DAILY PRN 06/20/19 Melatonin 3 mg PO QHS 06/20/19 Menthol/Lanolin/Calamine/Znox 1 applic TOPICAL BID@06,199906/20/19 [Calmoseptine Ointment] Prednisone 2.5 mg PO DAILY 06/20/19 Prednisone 5 mg PO DAILY 06/20/19 Senna/Docusate Sodium [Senokot-S] 2 tab PO BID 06/20/19 Warfarin [Coumadin] 6 mg PO DAILY@1700 06/20/19 traMADol [Ultram] 50 mg PO BID@0800,1700 06/20/19 traMADol [Ultram] 50 mg PO QHS 06/20/19 Surgical History: Surgical History (Last Reviewed 06/08/19 @ 12:38 by Kaitlynn Boyle DO) History of right and left heart catheterization (Chronic) Onset Date: 02/14/19 Z98.890 Normal Left Ventricular systolic function; LVEF: by LV gram 65 %; Elevated Left Ventricular End Diastolic Pressure; Non obstructive coronary arteries; The patient has pulmonary hypertension which is moderate. 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 Denies: Chills, Fever, Weight Change HEENT: Denies: Head Aches, Sinus Congestion, Sinus Drainage Cardiovascular: Denies: Chest Pain, Palpitations Respiratory: Denies: Cough, Shortness of breath at rest, Sputum production Gastrointestinal: Denies: Abdominal Pain, Nausea, Vomiting Genitourinary: Denies: Dysuria Musculoskeletal: Denies: Joint Pain, Joint Tenderness Skin: Denies: Rash, Wounds Neurological: Denies: Numbness, Tingling, Focal weakness Psychiatric: Denies: Anxiety, Depression, Homicidal Ideations, Suicidal Ideations Hematologic/ Lymphatic: Denies: Easy Bruising, Easy Bleeding VTE Information - Inpt Only VTE Present on Admission: No VTE Mechan Device Prophylaxis: Knee High FRANCI Hose VTE Pharm Prophylaxis ordered?: No Reason prophylaxis not ordered:: Treatment Not Indicated Patient Problems: Active and Suspected Problems (Last Reviewed 06/08/19 @ 12:38 by Kaitlynn Boyle DO) Debility (Acute) Acute exacerbation of chronic low back pain (Acute) - Physical Exam Vitals/I&O's: Vital Signs Temp Pulse Resp BP Pulse Ox 97.3 F L 62 16 121/82 H 97 06/20/19 14:01 06/20/19 17:24 06/20/19 14:01 06/20/19 14:01 06/20/19 14:01 Oxygen Delivery Method Room Air Weight: 113.653 kg Body Mass Index (BMI) 40.4 Intake and Output for Last 24 Hours 06/18/19 06/19/19 06/20/19 23:59 23:59 23:59 Intake Total 240 / 240 Balance 240 / 240 General: Alert, Oriented x3, Cooperative HEENT: Atraumatic, PERRLA, EOMI, Normocephalic Neck: Supple, No JVD, Negative Carotid Bruits Lungs: Clear to auscultation, Normal air movement Cardiovascular: Regular rate, No murmurs Abdomen: Bowel Sounds Present, Soft, Non Tender Extremities: No edema, Capillary Refill Less than 3 Seconds Skin: No rashes, No breakdown Musculoskeletal: No Tenderness to Palpation of Joints or Extremities Neurological: Cranial nerves II-XII grossly intact Psych/Mental Status: Normal Affect, Appropriate Current Medications Acetaminophen (Tylenol) 1,000 mg PO BID [facility] Last Admin: 06/20/19 17:23 Dose: 1,000 mg Documented by: Amlodipine Besylate (Norvasc) 2.5 mg PO DAILY JANEL Bisacodyl (Dulcolax) 10 mg RECTAL DAILY PRN PRN Reason: Constipation Calamine/Phenol (Calmoseptine Ointment) 1 applic TOPICAL BID@0600,2000 [facility]; Protocol Magnesium Hydroxide (Milk Of Magnesia) 30 ml PO DAILY PRN PRN Reason: Constipation Melatonin (Melatonin) 3 mg PO QHS [facility] Metoprolol Tartrate (Lopressor (Beta Gilbert)) 50 mg PO BID [facility] Last Admin: 06/20/19 17:24 Dose: 50 mg Documented by: Multivitamins (Multivitamin) 1 tablet PO DAILY@0800 [facility] Pravastatin Sodium (Pravachol) 80 mg PO QHS [facility] Stop: 06/22/19 08:01 [facility] () [facility] Stop: 06/29/19 08:01 Senna/Docusate Sodium (Senokot-S, Yokasta-Colace) 2 tablet PO BID [facility] Last Admin: 06/20/19 17:23 Dose: 2 tablet Documented by: Tramadol HCl (Ultram) 50 mg PO QHS [facility] Tramadol HCl (Ultram) 50 mg PO BID@0800,1700 [facility] Last Admin: 06/20/19 17:27 Dose: 50 mg Documented by: Tuberculin PPD (Tubersol, Aplisol, Ppd) 5 tu ID X1 ONE Stop: 06/21/19 10:01 Tuberculin PPD (Tubersol, Aplisol, Ppd) 5 tu ID X1 ONE Stop: 06/28/19 10:01 Warfarin Sodium (Coumadin (Pbkc)) 6 mg PO DAILY@1700 [facility] Last Admin: 06/20/19 17:22 Dose: 6 mg Documented by: Assessment/Plan All Active Problems (Last Reviewed 06/08/19 @ 12:38 by Kaitlynn Boyle DO) Bradycardia (Resolved) Thrombocytopenia (Acute) Subtherapeutic international normalized ratio (INR) (Acute) Debility (Acute) Acute exacerbation of chronic low back pain (Acute) Cellulitis of lower extremity (Resolved) Decubitus ulcer of right buttock, stage 2 (Resolved) Edema of lower extremity (Resolved) Nonhealing nonsurgical wound with fat layer exposed (Resolved) Peripheral vascular disease of lower extremity with ulceration (Resolved) 78 year old male with below past medical history admitted to Inpatient Rehabilitation for debility secondary to exacerbation of chronic back pain, admitted to TCU with debility, here for rehabilitation, strengthening, prior to discharge home with . Debility - PT/OT. Pain - Tylenol 1000MG BID, Tramadol 50MG BID, QHS. Bowel - Miralax 17GM daily, Senna/colace 2 tablets BID, Dulcolax 10MG GA daily PRN. Adult immunization - Administer Prevnar 13, Pneumovax 23, Fluzone as appropriate. DVT prophylaxis - Not necessary, already on warfarin. Hypertension - Metoprolol 50MG BID, Amlodipine 2.5MG daily. Insomnia - Melatonin 3MG QHS. Skin irritation - Calmoseptine BID. Diabetes Mellitus II - Metformin 500MG daily, monitor blood sugars. Nutrition - MVI daily. Hyperlipidemia - Pravastatin 80MG QHS. Shortness of breath - Prednisone taper. Atrial Fibrillation - Metoprolol 50M BID, Warfarin 6MG daily, monitor INR.
[2019-06-20] MEDS: MELATONIN 3 MG TABLET PO (20:36)
[2019-06-20] MEDS: Pravastatin 80 MG Tablet PO (20:36)
[2019-06-20] MEDS: Menthol/Lanolin/Calamine/Znox 113 GM Tube 1 APPLIC TOPICAL (20:37)
[2019-06-21] MEDS: Polyethylene Glycol 3350 17 GM PACKET PO (05:28)
[2019-06-21 05:29] VITALS: BP 163/96; PULSE 61
[2019-06-21] MEDS: amLODIPine 2.5 MG Tablet PO (05:29)
[2019-06-21] MEDS: Acetaminophen 500 MG Tablet 1000 MG PO ×2 (05:29→16:43)
[2019-06-21] MEDS: Senna/Docusate Sodium 1 Tablet 2 TABLET PO ×2 (05:29→16:42)
[2019-06-21] MEDS: Metoprolol Tartrate 50 MG Tablet PO ×2 (05:29→16:43)
[2019-06-21] MEDS: Menthol/Lanolin/Calamine/Znox 113 GM Tube 1 APPLIC TOPICAL ×2 (05:31→22:11)
[2019-06-21 05:57] LABS: International Normalized Ratio 1.9; Prothrombin Time (Protime)PT. 21.7 SECONDS (11.7-14.9)
[2019-06-21 06:31] LABS: Bedside Glucose 88 mg/dL (70-110)
[2019-06-21 06:48] LABS: Anion Gap 4 (5-15); BUN 35 mg/dL (7-18); BUN/Creat Ratio 30.2 RATIO (10-20); Calcium,Total 9.4 mg/dL (8.5-10.1); Chloride 113 mmol/L (98-107); Creatinine, Serum 1.16 mg/dL (0.70-1.30); EST Glomerular Filtration Rate 65 mL/min (>60); Est Glom Filt Rate - Afr Amer 78 mL/min (>60); Estimated Creatinine Clearance 47.36 ml/min; Glucose 119 mg/dL (74-106); Potassium 5.1 mmol/L (3.5-5.1); Sodium Level 145 mmol/L (136-145)
[2019-06-21 07:26] LABS: Absolute Lymphocyte Count 1.02 X10^3/uL (0.83-4.51); Absolute Neutrophil Count 4.3 X10^3/uL (2.0-7.7); Basophil# 0.03 X10^3/uL; Basophil% 0.5 % (0-1); Eosinophil# 0.11 X10^3/uL; Eosinophils% 1.9 % (0-5); Hematocrit 42.7 % (40-54); Hemoglobin 13.9 g/dL (13.0-16.5); Lymphocyte # 1.02 X10^3/ul (4.0); Lymphocyte % 17.2 % (19-41); Mean Corp Hgb Conc 32.6 g/dL (32-36); Mean Corpuscular Hgb 32.2 pg (27.0-32.0); Mean Corpuscular Volume 98.8 fL (80-94); Mean Platelet Vol. 9.5 fl (6.2-12.0); Monocyte# 0.43 X10^3/uL; Monocyte% 7.3 % (0-10); NRBC Flagged by Analyzer 0 % (0-5); Neutrophil # 4.27 X10^3/uL (2.7-7.7); Neutrophil % 71.9 % (47-70); Platelet Count 150 K/mm3 (150-450); RBC Distribution Width CV 13.7 % (11.6-14.6); RBC Distribution Width SD 49.9 fl (35.1-43.9); Red Blood Count 4.32 M/mm3 (4.6-6.2); White Blood Count 5.9 K/mm3 (4.4-11.0)
[2019-06-21] MEDS: predniSONE 5 MG Tablet PO (08:05)
[2019-06-21] MEDS: Multivitamins,Therapeutic Tablet 1 TABLET PO (08:05)
[2019-06-21] MEDS: metFORMIN HCl 500 MG Tablet PO (08:05)
[2019-06-21] MEDS: Tuberculin,Purif.prot.deriv. 50 TU/ML Vial 5 ML ID (14:13)
--- NOTE | 2019-06-21 15:24 | PHA.CONS_ITS ---
<Kristi Luu - Last Filed: 06/21/19 15:24> Progress Note - Pharmacy Subjective: TCU Admission Objective: Allergies naproxen [From Naprosyn] Allergy (Unknown, Verified 06/03/19 15:36) Hives codeine Allergy (Verified 06/03/19 15:36) Hives gabapentin Allergy (Verified 06/03/19 15:36) Hives hydrocodone [From Vicodin] Allergy (Verified 06/03/19 15:36) Hives levofloxacin [From Levaquin] Allergy (Verified 06/03/19 15:36) Hives lisinopril Allergy (Verified 06/03/19 15:36) Hives morphine Allergy (Verified 06/03/19 15:36) Hives sertraline [From Zoloft] Allergy (Verified 06/03/19 15:36) Hives simvastatin [From Zocor] Allergy (Verified 06/03/19 15:36) Hives sulfamethoxazole Allergy (Verified 06/03/19 15:36) Hives Current Medications Generic Name Dose Route Start Last Admin Trade Name Lorneq PRN Reason Stop Dose Admin Acetaminophen 1,000 mg 06/20/19 18:00 06/21/19 05:29 Tylenol PO 1,000 mg BID JANEL Administration Amlodipine Besylate 2.5 mg 06/21/19 06:00 06/21/19 05:29 Norvasc PO 2.5 mg DAILY JANEL Administration Bisacodyl 10 mg 06/20/19 14:23 Dulcolax RECTAL DAILY PRN Constipation Calamine/Phenol 1 applic 06/20/19 20:00 06/21/19 05:31 Calmoseptine Ointment TOPICAL 1 applicatio BID@0600,1999 JANEL Administration Protocol Melatonin 3 mg 06/20/19 22:00 06/20/19 20:36 Melatonin PO 3 mg QHS JANEL Administration Metformin HCl 500 mg 06/21/19 08:00 06/21/19 08:05 Glucophage PO 500 mg DAILYCM JANEL Administration Metoprolol Tartrate 50 mg 06/20/19 18:00 06/21/19 05:29 Lopressor (Beta Gilbert) PO 50 mg BID JANEL Administration Multivitamins 1 tablet 06/21/19 08:00 06/21/19 08:05 Multivitamin PO 1 tablet DAILY@0800 JANEL Administration Polyethylene Glycol 17 gm 06/21/19 06:00 06/21/19 05:28 Miralax PO 17 gm DAILY JANEL Administration Pravastatin Sodium 80 mg 06/20/19 22:00 06/20/19 20:36 Pravachol PO 80 mg QHS [facility] Administration Prednisone 5 mg 06/21/19 08:00 06/21/19 08:05 PO 06/22/19 08:01 5 mg DAILYCM JANEL Administration Prednisone 2.5 mg 06/23/19 08:00 PO 06/29/19 08:01 DAILYCM [facility] Senna/Docusate Sodium 2 tablet 06/20/19 18:00 06/21/19 05:29 Senokot-S, Yokasta-Colace PO 2 tablet BID JANEL Administration Tramadol HCl 50 mg 06/20/19 22:00 06/20/19 20:36 Ultram PO 50 mg QHS [facility] Administration Tramadol HCl 50 mg 06/20/19 17:00 06/21/19 10:28 Ultram PO Not Given BID@0800,1700 [facility] Tuberculin PPD 5 tu 06/28/19 10:00 Tubersol, Aplisol, Ppd ID 06/28/19 10:01 X1 ONE Warfarin Sodium 6 mg 06/20/19 17:00 06/20/19 17:22 Coumadin (Pbkc) PO 6 mg DAILY@1700 [facility] Administration Problem List (Last Reviewed 06/08/19 @ 12:38 by Kaitlynn Boyle DO) Debility (Acute) Acute exacerbation of chronic low back pain (Acute) Body mass index (BMI) 40.0-44.9, adult (Chronic) Chronic diastolic (congestive) heart failure (Chronic) Chronic pain (Chronic) Hyperlipidemia (Chronic) Moderate pulmonary arterial systolic hypertension (Chronic) Vital Signs Temp Pulse Resp BP Pulse Ox 97.3 F L 61 16 163/96 H 97 06/20/19 14:01 06/21/19 05:29 06/20/19 14:01 06/21/19 05:29 06/20/19 14:01 Oxygen Delivery Method Room Air Weight: 113.653 kg Body Mass Index (BMI) 40.4 Sodium 145 mmol/L (136-145) 06/21/19 05:25 Potassium 5.1 mmol/L (3.5-5.1) 06/21/19 05:25 Chloride 113 mmol/L (98-107) H 06/21/19 05:25 Carbon Dioxide 28.0 mmol/L (21.0-32.0) 06/21/19 05:25 Anion Gap 4 (5-15) L 06/21/19 05:25 BUN 35 mg/dL (7-18) H 06/21/19 05:25 Creatinine 1.16 mg/dL (0.70-1.30) 06/21/19 05:25 Est GFR (MDRD) Af Amer 78 mL/min (>60) 06/21/19 05:25 Est GFR (MDRD) Non-Af 65 mL/min (>60) 06/21/19 05:25 BUN/Creatinine Ratio 30.2 RATIO (10-20) H 06/21/19 05:25 Glucose 119 mg/dL (74-106) H 06/21/19 05:25 Assessment/Plan: 1. Pain: acetaminophen 1000mg PO BID, tramadol 50mg PO 0800, 1700 and 2000. Please continue to monitor for increased pain and renal function. 2. Shortness of breath: prednisone 5mg PO DAILYCM thru 06/22/2019 then 2.5mg PO DAILYCM for 7 days. Please continue to monitor for shortness of breath, restlessness, upset stomach, and for S/S of infection. 3. Hypertension/atrial fibrillation: metoprolol tartrate 50mg PO BID, amlodipine 2.5mg PO daily, and warfarin 6mg PO daily. Please continue to monitor INR, HR, BP, edema, and for S/S of bleeding. 4. Diabetes mellitus type II: metformin 500mg PO DAILYCM. Recent hemoglobin A1c in chart. Please continue to monitor for hyper/hyperglycemia and renal function. 5. Hyperlipidemia: pravastatin 80mg PO QHS. Recent lipid panel and LFTs in chart. Please continue to monitor for muscle pain. 6. Insomnia: melatonin 3mg PO QHS. Please continue to monitor for insomnia and confusion. 7. Overall nutrition: multivitamin 1T PO DIALYCM. Please continue to monitor. Psychotropic Medications: None Unnecessary Medications: None Bowel Regimen: Miralax 17gm PO daily, senna/docusate 2T PO BID, bisacodyl 10mg MD daily PRN constipation. Please continue to monitor for constipation/diarrhea and increased PRN usage. Date of Note:: 06/21/19 - Provider Comments Provider responsibility: Provider responsible to enter orders to implement recommendations <Luis AlfredoBrady Jeffery - Last Filed: 06/21/19 17:15> Progress Note - Pharmacy Subjective: [] Objective: Allergies naproxen [From Naprosyn] Allergy (Unknown, Verified 06/03/19 15:36) Hives codeine Allergy (Verified 06/03/19 15:36) Hives gabapentin Allergy (Verified 06/03/19 15:36) Hives hydrocodone [From Vicodin] Allergy (Verified 06/03/19 15:36) Hives levofloxacin [From Levaquin] Allergy (Verified 06/03/19 15:36) Hives lisinopril Allergy (Verified 06/03/19 15:36) Hives morphine Allergy (Verified 06/03/19 15:36) Hives sertraline [From Zoloft] Allergy (Verified 06/03/19 15:36) Hives simvastatin [From Zocor] Allergy (Verified 06/03/19 15:36) Hives sulfamethoxazole Allergy (Verified 06/03/19 15:36) Hives Current Medications Generic Name Dose Route Start Last Admin Trade Name Freq PRN Reason Stop Dose Admin Acetaminophen 1,000 mg 06/20/19 18:00 06/21/19 16:43 Tylenol PO 1,000 mg BID JANEL Administration Amlodipine Besylate 2.5 mg 06/21/19 06:00 06/21/19 05:29 Norvasc PO 2.5 mg DAILY JANEL Administration Bisacodyl 10 mg 06/20/19 14:23 Dulcolax RECTAL DAILY PRN Constipation Calamine/Phenol 1 applic 06/20/19 20:00 06/21/19 05:31 Calmoseptine Ointment TOPICAL 1 applicatio BID@0600,2000 JANEL Administration Protocol Melatonin 3 mg 06/20/19 22:00 06/20/19 20:36 Melatonin PO 3 mg QHS JANEL Administration Metformin HCl 500 mg 06/21/19 08:00 06/21/19 08:05 Glucophage PO 500 mg DAILYCM JANEL Administration Metoprolol Tartrate 50 mg 06/20/19 18:00 06/21/19 16:43 Lopressor (Beta Gilbert) PO 50 mg BID JANEL Administration Multivitamins 1 tablet 06/21/19 08:00 06/21/19 08:05 Multivitamin PO 1 tablet DAILY@0800 JANEL Administration Polyethylene Glycol 17 gm 06/21/19 06:00 06/21/19 05:28 Miralax PO 17 gm DAILY JANEL Administration Pravastatin Sodium 80 mg 06/20/19 22:00 06/20/19 20:36 Pravachol PO 80 mg QHS JANEL Administration Prednisone 5 mg 06/21/19 08:00 06/21/19 08:05 PO 06/22/19 08:01 5 mg DAILYCM [facility] Administration Prednisone 2.5 mg 06/23/19 08:00 PO 06/29/19 08:01 DAILYCM [facility] Senna/Docusate Sodium 2 tablet 06/20/19 18:00 06/21/19 16:42 Senokot-S, Yokasta-Colace PO 2 tablet BID JANEL Administration Tramadol HCl 50 mg 06/20/19 22:00 06/20/19 20:36 Ultram PO 50 mg QHS JANEL Administration Tramadol HCl 50 mg 06/20/19 17:00 06/21/19 16:42 Ultram PO 50 mg BID@0800,1700 [facility] Administration Tuberculin PPD 5 tu 06/28/19 10:00 Tubersol, Aplisol, Ppd ID 06/28/19 10:01 X1 ONE Warfarin Sodium 6 mg 06/20/19 17:00 06/21/19 16:43 Coumadin (Pbkc) PO 6 mg DAILY@1700 [facility] Administration Problem List (Last Reviewed 06/08/19 @ 12:38 by Kaitlynn Boyle DO) Debility (Acute) Acute exacerbation of chronic low back pain (Acute) Body mass index (BMI) 40.0-44.9, adult (Chronic) Chronic diastolic (congestive) heart failure (Chronic) Chronic pain (Chronic) Hyperlipidemia (Chronic) Moderate pulmonary arterial systolic hypertension (Chronic) Vital Signs Temp Pulse Resp BP Pulse Ox 97.3 F L 69 16 163/96 H 97 06/20/19 14:01 06/21/19 16:43 06/20/19 14:01 06/21/19 05:29 06/20/19 14:01 Oxygen Delivery Method Room Air Weight: 113.653 kg Body Mass Index (BMI) 40.4 Sodium 145 mmol/L (136-145) 06/21/19 05:25 Potassium 5.1 mmol/L (3.5-5.1) 06/21/19 05:25 Chloride 113 mmol/L (98-107) H 06/21/19 05:25 Carbon Dioxide 28.0 mmol/L (21.0-32.0) 06/21/19 05:25 Anion Gap 4 (5-15) L 06/21/19 05:25 BUN 35 mg/dL (7-18) H 06/21/19 05:25 Creatinine 1.16 mg/dL (0.70-1.30) 06/21/19 05:25 Est GFR (MDRD) Af Amer 78 mL/min (>60) 06/21/19 05:25 Est GFR (MDRD) Non-Af 65 mL/min (>60) 06/21/19 05:25 BUN/Creatinine Ratio 30.2 RATIO (10-20) H 06/21/19 05:25 Glucose 119 mg/dL (74-106) H 06/21/19 05:25 Assessment/Plan: Psychotropic Medications: Unnecessary Medications: Bowel Regimen: - Provider Comments Provider responsibility: Provider responsible to enter orders to implement recommendations Provider Comments to Recommendations by Pharmacy: Agree
--- NOTE | 2019-06-21 15:56 | CHAPLAIN ---
Type of Pastoral Visit ___ Initial Visit _x__ Follow-up Visit ___ On-call Visit ___ General Patient Visit ___ Spiritual Assessment ___ Family Conference ___ Bereavement ___ Rapid Response ___ Code Blue ___ Other (describe below) Pastoral Care Referral From _x__ Patient ___ Family ___ Nurse ___ Physician ___ Machine Tool Technician Instructor ___ Block Cleaner ___ Other (describe below) Sacrament/Intervention _x__ Active listening ___ Anointing ___ Samaritan ___ Bereavement ___ Communion _x__ Laura exploration ___ _x__ Life review _x__ Prayer ___ Reconciliation ___ Sacrament of Sick ___ Supportive presence ___ Wedding ___ Other (describe below) Pastoral Comments
[2019-06-21 16:00] VITALS: BP 116/72; PULSE 69; RESP 18; TEMP 36.8; O2SAT 96
[2019-06-21] MEDS: traMADol 50 MG Tablet PO ×2 (16:42→22:11)
[2019-06-21 16:43] VITALS: PULSE 69
[2019-06-21] MEDS: Pravastatin 80 MG Tablet PO (22:11)
[2019-06-21] MEDS: MELATONIN 3 MG TABLET PO (22:11)
[2019-06-22] MEDS: Polyethylene Glycol 3350 17 GM PACKET PO (05:28)
[2019-06-22 05:29] VITALS: BP 130/73; PULSE 55
[2019-06-22] MEDS: Senna/Docusate Sodium 1 Tablet 2 TABLET PO (05:29)
[2019-06-22] MEDS: Acetaminophen 500 MG Tablet 1000 MG PO ×2 (05:29→17:48)
[2019-06-22] MEDS: amLODIPine 2.5 MG Tablet PO (05:29)
[2019-06-22] MEDS: Metoprolol Tartrate 50 MG Tablet PO ×2 (05:29→17:48)
[2019-06-22] MEDS: Menthol/Lanolin/Calamine/Znox 113 GM Tube 1 APPLIC TOPICAL ×2 (05:32→21:50)
[2019-06-22 06:15] LABS: Prothrombin Time (Protime)PT. 22.4 SECONDS (11.7-14.9)
[2019-06-22 06:26] LABS: Bedside Glucose 119 mg/dL (70-110)
[2019-06-22] MEDS: traMADol 50 MG Tablet PO ×3 (08:12→21:49)
[2019-06-22] MEDS: Multivitamins,Therapeutic Tablet 1 TABLET PO (08:13)
[2019-06-22] MEDS: metFORMIN HCl 500 MG Tablet PO (08:13)
[2019-06-22] MEDS: predniSONE 5 MG Tablet PO (08:13)
[2019-06-22 15:32] VITALS: BP 102/69; PULSE 63; RESP 20; TEMP 36.9; O2SAT 96
[2019-06-22 17:48] VITALS: BP 102/69; PULSE 63
[2019-06-22] MEDS: Pravastatin 80 MG Tablet PO (21:49)
[2019-06-22] MEDS: MELATONIN 3 MG TABLET PO (21:49)
[2019-06-22 21:51] VITALS: O2SAT 97
[2019-06-23 06:01] LABS: International Normalized Ratio 1.8
[2019-06-23 06:29] VITALS: BP 137/69; PULSE 60
[2019-06-23] MEDS: amLODIPine 2.5 MG Tablet PO (06:29)
[2019-06-23] MEDS: Metoprolol Tartrate 50 MG Tablet PO ×2 (06:29→17:34)
[2019-06-23 06:30] LABS: Bedside Glucose 113 mg/dL (70-110)
[2019-06-23] MEDS: Acetaminophen 500 MG Tablet 1000 MG PO ×2 (06:30→17:34)
[2019-06-23] MEDS: Menthol/Lanolin/Calamine/Znox 113 GM Tube 1 APPLIC TOPICAL ×2 (06:31→21:35)
[2019-06-23] MEDS: predniSONE 5 MG Tablet 2.5 MG PO (08:11)
[2019-06-23] MEDS: traMADol 50 MG Tablet PO ×3 (08:11→21:33)
[2019-06-23] MEDS: metFORMIN HCl 500 MG Tablet PO (08:11)
[2019-06-23] MEDS: Multivitamins,Therapeutic Tablet 1 TABLET PO (08:11)
[2019-06-23 08:21] VITALS: O2SAT 96
[2019-06-23 16:00] VITALS: BP 126/57; PULSE 61; RESP 20; TEMP 36.7; O2SAT 94
[2019-06-23] MEDS: Warfarin 4 MG, Warfarin 2.5 MG 6.5 MG PO (17:33)
[2019-06-23 17:34] VITALS: PULSE 61
[2019-06-23] MEDS: Pravastatin 80 MG Tablet PO (21:33)
[2019-06-23] MEDS: MELATONIN 3 MG TABLET PO (21:33)
[2019-06-24] MEDS: Polyethylene Glycol 3350 17 GM PACKET PO (06:07)
[2019-06-24 06:08] VITALS: BP 156/74; PULSE 66
[2019-06-24] MEDS: Metoprolol Tartrate 50 MG Tablet PO ×2 (06:08→17:06)
[2019-06-24] MEDS: Senna/Docusate Sodium 1 Tablet 2 TABLET PO ×2 (06:08→17:06)
[2019-06-24] MEDS: amLODIPine 2.5 MG Tablet PO (06:08)
[2019-06-24] MEDS: Acetaminophen 500 MG Tablet 1000 MG PO ×2 (06:08→17:06)
[2019-06-24] MEDS: Menthol/Lanolin/Calamine/Znox 113 GM Tube 1 APPLIC TOPICAL ×2 (06:13→21:26)
[2019-06-24 06:31] LABS: Bedside Glucose 109 mg/dL (70-110)
[2019-06-24] MEDS: Multivitamins,Therapeutic Tablet 1 TABLET PO (08:34)
[2019-06-24] MEDS: predniSONE 5 MG Tablet 2.5 MG PO (08:35)
[2019-06-24] MEDS: metFORMIN HCl 500 MG Tablet PO (08:35)
[2019-06-24] MEDS: traMADol 50 MG Tablet PO ×3 (08:35→21:22)
--- NOTE | 2019-06-24 08:52 | CPS ---
Pt wears own CPAP @[facility]. He is independent placing self on machine.
[2019-06-24 11:08] LABS: International Normalized Ratio 1.9; Prothrombin Time (Protime)PT. 21.7 SECONDS (11.7-14.9)
[2019-06-24 15:56] VITALS: BP 125/72; PULSE 66; RESP 17; TEMP 37.2; O2SAT 97
[2019-06-24 17:06] VITALS: BP 125/72; PULSE 66
[2019-06-24] MEDS: Warfarin 4 MG, Warfarin 2.5 MG 6.5 MG PO (17:07)
[2019-06-24] MEDS: Pravastatin 80 MG Tablet PO (21:26)
[2019-06-24] MEDS: MELATONIN 3 MG TABLET PO (21:26)
--- NOTE | 2019-06-24 22:04 | NURSING ---
2200- [facility] reported finding new skin tear to R posterior thigh after pt's shower this evening. Site cleansed and DSD applied.
[2019-06-25 06:10] LABS: Bedside Glucose 87 mg/dL (70-110)
[2019-06-25] MEDS: Acetaminophen 500 MG Tablet 1000 MG PO ×2 (06:19→17:16)
[2019-06-25] MEDS: Senna/Docusate Sodium 1 Tablet 2 TABLET PO ×2 (06:19→17:15)
[2019-06-25] MEDS: Polyethylene Glycol 3350 17 GM PACKET PO (06:19)
[2019-06-25 06:20] VITALS: PULSE 58
[2019-06-25] MEDS: Metoprolol Tartrate 50 MG Tablet PO ×2 (06:20→17:16)
[2019-06-25] MEDS: amLODIPine 2.5 MG Tablet PO (06:20)
[2019-06-25] MEDS: Menthol/Lanolin/Calamine/Znox 113 GM Tube 1 APPLIC TOPICAL ×2 (06:21→21:04)
[2019-06-25 06:23] VITALS: BP 142/68
[2019-06-25 07:16] LABS: Prothrombin Time (Protime)PT. 22.7 SECONDS (11.7-14.9)
[2019-06-25] MEDS: Multivitamins,Therapeutic Tablet 1 TABLET PO (08:08)
[2019-06-25] MEDS: predniSONE 5 MG Tablet 2.5 MG PO (08:08)
[2019-06-25] MEDS: metFORMIN HCl 500 MG Tablet PO (08:08)
[2019-06-25] MEDS: traMADol 50 MG Tablet PO ×3 (08:08→21:03)
[2019-06-25 16:00] VITALS: BP 124/60; PULSE 61; RESP 16; TEMP 36.9; O2SAT 94
[2019-06-25] MEDS: Warfarin 4 MG, Warfarin 2.5 MG 6.5 MG PO (17:15)
[2019-06-25 17:16] VITALS: BP 124/60; PULSE 68
[2019-06-25] MEDS: MELATONIN 3 MG TABLET PO (21:03)
[2019-06-25] MEDS: Pravastatin 80 MG Tablet PO (21:03)
[2019-06-26] MEDS: Polyethylene Glycol 3350 17 GM PACKET PO (06:09)
[2019-06-26 06:11] VITALS: BP 134/68; PULSE 60
[2019-06-26] MEDS: Acetaminophen 500 MG Tablet 1000 MG PO ×2 (06:11→17:43)
[2019-06-26] MEDS: Metoprolol Tartrate 50 MG Tablet PO ×2 (06:11→17:42)
[2019-06-26] MEDS: Senna/Docusate Sodium 1 Tablet 2 TABLET PO ×2 (06:11→17:42)
[2019-06-26] MEDS: amLODIPine 2.5 MG Tablet PO (06:11)
[2019-06-26] MEDS: Menthol/Lanolin/Calamine/Znox 113 GM Tube 1 APPLIC TOPICAL ×2 (06:12→21:42)
[2019-06-26 06:21] LABS: International Normalized Ratio 1.9; Prothrombin Time (Protime)PT. 21.9 SECONDS (11.7-14.9)
[2019-06-26 06:25] LABS: Bedside Glucose 89 mg/dL (70-110)
[2019-06-26] MEDS: Multivitamins,Therapeutic Tablet 1 TABLET PO (08:29)
[2019-06-26] MEDS: metFORMIN HCl 500 MG Tablet PO (08:29)
[2019-06-26] MEDS: predniSONE 5 MG Tablet 2.5 MG PO (08:29)
[2019-06-26] MEDS: traMADol 50 MG Tablet PO ×3 (08:33→21:40)
[2019-06-26 16:00] VITALS: BP 121/69; PULSE 69; RESP 17; TEMP 37.1; O2SAT 96
[2019-06-26 17:42] VITALS: BP 121/69; PULSE 69
[2019-06-26] MEDS: Warfarin 4 MG, Warfarin 2.5 MG 6.5 MG PO (17:42)
[2019-06-26] MEDS: Pravastatin 80 MG Tablet PO (21:40)
[2019-06-26] MEDS: MELATONIN 3 MG TABLET PO (21:40)
[2019-06-27 06:12] VITALS: BP 132/71; PULSE 78
[2019-06-27 06:12] LABS: Prothrombin Time (Protime)PT. 22.3 SECONDS (11.7-14.9)
[2019-06-27] MEDS: Metoprolol Tartrate 50 MG Tablet PO ×2 (06:12→18:06)
[2019-06-27] MEDS: Acetaminophen 500 MG Tablet 1000 MG PO ×2 (06:12→18:07)
[2019-06-27] MEDS: amLODIPine 2.5 MG Tablet PO (06:12)
[2019-06-27] MEDS: Polyethylene Glycol 3350 17 GM PACKET PO (06:13)
[2019-06-27] MEDS: Senna/Docusate Sodium 1 Tablet 2 TABLET PO ×2 (06:13→18:07)
[2019-06-27] MEDS: Menthol/Lanolin/Calamine/Znox 113 GM Tube 1 APPLIC TOPICAL ×2 (06:18→22:34)
[2019-06-27 06:35] LABS: Bedside Glucose 86 mg/dL (70-110)
[2019-06-27] MEDS: traMADol 50 MG Tablet PO ×3 (08:25→22:32)
[2019-06-27] MEDS: Multivitamins,Therapeutic Tablet 1 TABLET PO (08:26)
[2019-06-27] MEDS: predniSONE 5 MG Tablet 2.5 MG PO (08:26)
[2019-06-27] MEDS: metFORMIN HCl 500 MG Tablet PO (08:26)
[2019-06-27 15:15] VITALS: BP 121/54; PULSE 53; RESP 22; TEMP 36.5; O2SAT 97
[2019-06-27] MEDS: Warfarin 4 MG, Warfarin 2.5 MG 6.5 MG PO (18:05)
[2019-06-27 18:06] VITALS: PULSE 80
[2019-06-27] MEDS: Pravastatin 80 MG Tablet PO (22:32)
[2019-06-27] MEDS: MELATONIN 3 MG TABLET PO (22:32)
[2019-06-28 05:44] LABS: Absolute Lymphocyte Count 1.17 X10^3/uL (0.83-4.51); Absolute Neutrophil Count 3.3 X10^3/uL (2.0-7.7); Basophil# 0.02 X10^3/uL; Basophil% 0.4 % (0-1); Eosinophil# 0.15 X10^3/uL; Eosinophils% 2.9 % (0-5); Hematocrit 39.6 % (40-54); Hemoglobin 12.7 g/dL (13.0-16.5); Lymphocyte # 1.17 X10^3/ul (4.0); Lymphocyte % 22.6 % (19-41); Mean Corp Hgb Conc 32.1 g/dL (32-36); Mean Corpuscular Hgb 31.5 pg (27.0-32.0); Mean Corpuscular Volume 98.3 fL (80-94); Mean Platelet Vol. 9.7 fl (6.2-12.0); Monocyte# 0.53 X10^3/uL; Monocyte% 10.3 % (0-10); NRBC Flagged by Analyzer 0 % (0-5); Neutrophil # 3.26 X10^3/uL (2.7-7.7); Platelet Count 144 K/mm3 (150-450); RBC Distribution Width CV 14.2 % (11.6-14.6); RBC Distribution Width SD 51.7 fl (35.1-43.9); Red Blood Count 4.03 M/mm3 (4.6-6.2); White Blood Count 5.2 K/mm3 (4.4-11.0)
[2019-06-28 05:53] LABS: Prothrombin Time (Protime)PT. 22.4 SECONDS (11.7-14.9)
[2019-06-28] MEDS: Polyethylene Glycol 3350 17 GM PACKET PO (06:16)
[2019-06-28 06:18] VITALS: BP 128/59; PULSE 60
[2019-06-28] MEDS: Metoprolol Tartrate 50 MG Tablet PO ×2 (06:18→16:44)
[2019-06-28] MEDS: Senna/Docusate Sodium 1 Tablet 2 TABLET PO ×2 (06:18→16:44)
[2019-06-28] MEDS: Acetaminophen 500 MG Tablet 1000 MG PO ×2 (06:18→16:44)
[2019-06-28] MEDS: amLODIPine 2.5 MG Tablet PO (06:19)
[2019-06-28] MEDS: Menthol/Lanolin/Calamine/Znox 113 GM Tube 1 APPLIC TOPICAL ×2 (06:20→21:26)
[2019-06-28 06:35] LABS: Bedside Glucose 103 mg/dL (70-110)
[2019-06-28 06:42] LABS: Anion Gap 3 (5-15); BUN 40 mg/dL (7-18); Calcium,Total 8.7 mg/dL (8.5-10.1); Chloride 111 mmol/L (98-107); Creatinine, Serum 1.11 mg/dL (0.70-1.30); EST Glomerular Filtration Rate 68 mL/min (>60); Est Glom Filt Rate - Afr Amer 82 mL/min (>60); Estimated Creatinine Clearance 49.49 ml/min; Glucose 110 mg/dL (74-106); Potassium 4.9 mmol/L (3.5-5.1); Sodium Level 141 mmol/L (136-145)
[2019-06-28] MEDS: predniSONE 5 MG Tablet 2.5 MG PO (08:51)
[2019-06-28] MEDS: metFORMIN HCl 500 MG Tablet PO (08:52)
[2019-06-28] MEDS: traMADol 50 MG Tablet PO ×3 (08:52→21:26)
[2019-06-28] MEDS: Multivitamins,Therapeutic Tablet 1 TABLET PO (08:53)
--- NOTE | 2019-06-28 09:50 | CASEMGMT ---
Social Work IDT met with patient and for care plan meeting. Discussed patient's progress in therapy. Pt is min assist for LE ADLs, min for toileting, CGA for transfers, set up for UE ADLS. Pt's knees buckle without notice and would like to work on strengthening legs and knees. assisted with shoes and socks at home prior. Offered family training. Explained Medicare coverage. Pt and expressed appreciation for TCU staff. Will continue to follow. ELLY MoeW
[2019-06-28] MEDS: Tuberculin,Purif.prot.deriv. 50 TU/ML Vial 5 ML ID (12:16)
[2019-06-28 16:00] VITALS: BP 143/71; PULSE 55; RESP 18; TEMP 36.6; O2SAT 97
--- NOTE | 2019-06-28 16:07 | CHAPLAIN ---
Type of Pastoral Visit ___ Initial Visit _x__ Follow-up Visit ___ On-call Visit ___ General Patient Visit ___ Spiritual Assessment ___ Family Conference ___ Bereavement ___ Rapid Response ___ Code Blue ___ Other (describe below) Pastoral Care Referral From _x__ Patient ___ Family ___ Nurse ___ Physician ___ Transplant Worker ___ Spare Fixer ___ Other (describe below) Sacrament/Intervention _x__ Active listening ___ Anointing ___ Zoroastrianism ___ Bereavement ___ Communion ___ Laura exploration ___ _x__ Life review ___ Prayer ___ Reconciliation ___ Sacrament of Sick ___ Supportive presence ___ Wedding ___ Other (describe below) Pastoral Comments time to listen to patient and hear more about his life and thoughts; later this mirror specialist returned to room to give support to spouse of pt who admits that she has an emotionally harder time when he is not at home
[2019-06-28 16:44] VITALS: PULSE 55
[2019-06-28] MEDS: Warfarin 4 MG, Warfarin 2.5 MG 6.5 MG PO (16:45)
--- NOTE | 2019-06-28 17:00 | CASEMGMT ---
Social Work Reviewed and agreed with social work internal control specialist documentation on this date. Ashley Loja, CAN CUTTER LIGHTING ADVISER
[2019-06-28] MEDS: Pravastatin 80 MG Tablet PO (21:26)
[2019-06-28] MEDS: MELATONIN 3 MG TABLET PO (21:26)
[2019-06-29] MEDS: Polyethylene Glycol 3350 17 GM PACKET PO (05:30)
[2019-06-29] MEDS: Acetaminophen 500 MG Tablet 1000 MG PO ×2 (05:30→17:00)
[2019-06-29] MEDS: Senna/Docusate Sodium 1 Tablet 2 TABLET PO ×2 (05:30→17:01)
[2019-06-29 05:31] VITALS: BP 137/60; PULSE 51
[2019-06-29] MEDS: Metoprolol Tartrate 50 MG Tablet PO ×2 (05:31→17:00)
[2019-06-29] MEDS: amLODIPine 2.5 MG Tablet PO (05:31)
[2019-06-29] MEDS: Menthol/Lanolin/Calamine/Znox 113 GM Tube 1 APPLIC TOPICAL ×2 (05:31→21:45)
[2019-06-29 06:06] LABS: International Normalized Ratio 2.1; Prothrombin Time (Protime)PT. 23.6 SECONDS (11.7-14.9)
[2019-06-29 06:21] LABS: Bedside Glucose 91 mg/dL (70-110)
[2019-06-29] MEDS: metFORMIN HCl 500 MG Tablet PO (08:07)
[2019-06-29] MEDS: traMADol 50 MG Tablet PO ×3 (08:07→21:44)
[2019-06-29] MEDS: Multivitamins,Therapeutic Tablet 1 TABLET PO (08:07)
[2019-06-29] MEDS: predniSONE 5 MG Tablet 2.5 MG PO (08:08)
[2019-06-29 10:00] VITALS: RESP 18
[2019-06-29 16:00] VITALS: BP 129/55; PULSE 59; RESP 17; TEMP 36.9; O2SAT 96
[2019-06-29] MEDS: Warfarin 4 MG, Warfarin 2.5 MG 6.5 MG PO (16:59)
[2019-06-29 17:00] VITALS: BP 129/55; PULSE 59
[2019-06-29] MEDS: MELATONIN 3 MG TABLET PO (21:44)
[2019-06-29] MEDS: Pravastatin 80 MG Tablet PO (21:44)
[2019-06-30 05:39] LABS: International Normalized Ratio 2.3; Prothrombin Time (Protime)PT. 24.9 SECONDS (11.7-14.9)
[2019-06-30 05:58] VITALS: BP 133/64; PULSE 61
[2019-06-30] MEDS: Polyethylene Glycol 3350 17 GM PACKET PO (05:58)
[2019-06-30] MEDS: amLODIPine 2.5 MG Tablet PO (05:58)
[2019-06-30] MEDS: Senna/Docusate Sodium 1 Tablet 2 TABLET PO ×2 (05:58→17:17)
[2019-06-30] MEDS: Metoprolol Tartrate 50 MG Tablet PO (05:58)
[2019-06-30] MEDS: Acetaminophen 500 MG Tablet 1000 MG PO ×2 (05:59→17:18)
[2019-06-30] MEDS: Menthol/Lanolin/Calamine/Znox 113 GM Tube 1 APPLIC TOPICAL ×2 (06:00→21:00)
[2019-06-30 06:25] LABS: Bedside Glucose 81 mg/dL (70-110)
[2019-06-30] MEDS: metFORMIN HCl 500 MG Tablet PO (08:12)
[2019-06-30] MEDS: Multivitamins,Therapeutic Tablet 1 TABLET PO (08:12)
[2019-06-30] MEDS: traMADol 50 MG Tablet PO ×3 (08:12→23:08)
--- NOTE | 2019-06-30 10:22 | CASEMGMT ---
Social Work Reviewed and agreed social work project management intern documentation on this date. Ashley Loja MSW INTERNAL AFFAIRS INVESTIGATOR
[2019-06-30 15:22] VITALS: BP 142/68; PULSE 51; RESP 19; TEMP 36.6; O2SAT 97
[2019-06-30] MEDS: Warfarin 4 MG, Warfarin 2.5 MG 6.5 MG PO (17:16)
[2019-06-30 17:18] VITALS: PULSE 51
[2019-06-30] MEDS: Pravastatin 80 MG Tablet PO (23:05)
[2019-06-30] MEDS: MELATONIN 3 MG TABLET PO (23:05)
[2019-07-01] MEDS: Menthol/Lanolin/Calamine/Znox 113 GM Tube 1 APPLIC TOPICAL ×2 (05:39→21:22)
[2019-07-01 05:43] VITALS: BP 153/67; PULSE 50
[2019-07-01] MEDS: Polyethylene Glycol 3350 17 GM PACKET PO (05:43)
[2019-07-01] MEDS: amLODIPine 2.5 MG Tablet PO (05:45)
[2019-07-01] MEDS: Acetaminophen 500 MG Tablet 1000 MG PO ×2 (05:45→18:01)
[2019-07-01] MEDS: Senna/Docusate Sodium 1 Tablet 2 TABLET PO (05:46)
[2019-07-01 06:46] LABS: Bedside Glucose 94 mg/dL (70-110)
[2019-07-01] MEDS: Multivitamins,Therapeutic Tablet 1 TABLET PO (09:23)
[2019-07-01] MEDS: metFORMIN HCl 500 MG Tablet PO (09:23)
[2019-07-01] MEDS: traMADol 50 MG Tablet PO ×3 (09:24→21:18)
[2019-07-01 10:00] VITALS: RESP 18
[2019-07-01 14:53] VITALS: BP 116/74; PULSE 87; RESP 17; TEMP 36.8; O2SAT 92
[2019-07-01 18:02] VITALS: BP 116/74; PULSE 87
[2019-07-01] MEDS: Metoprolol Tartrate 50 MG Tablet PO (18:02)
[2019-07-01] MEDS: Warfarin 4 MG, Warfarin 2.5 MG 6.5 MG PO (18:03)
[2019-07-01] MEDS: Pravastatin 80 MG Tablet PO (21:19)
[2019-07-01] MEDS: MELATONIN 3 MG TABLET PO (21:19)
[2019-07-02] MEDS: Acetaminophen 500 MG Tablet 1000 MG PO (06:14)
[2019-07-02] MEDS: amLODIPine 2.5 MG Tablet PO (06:14)
[2019-07-02 06:15] VITALS: BP 122/62; PULSE 58
[2019-07-02] MEDS: Menthol/Lanolin/Calamine/Znox 113 GM Tube 1 APPLIC TOPICAL ×2 (06:15→21:26)
[2019-07-02] MEDS: Metoprolol Tartrate 50 MG Tablet PO ×2 (06:15→17:56)
[2019-07-02 06:26] LABS: Bedside Glucose 98 mg/dL (70-110)
[2019-07-02] MEDS: metFORMIN HCl 500 MG Tablet PO (08:57)
[2019-07-02] MEDS: Multivitamins,Therapeutic Tablet 1 TABLET PO (08:57)
[2019-07-02] MEDS: traMADol 50 MG Tablet PO (10:58)
[2019-07-02 15:42] VITALS: BP 119/60; PULSE 61; RESP 20; TEMP 36.6; O2SAT 94
[2019-07-02 17:56] VITALS: PULSE 61
[2019-07-02] MEDS: Warfarin 4 MG, Warfarin 2.5 MG 6.5 MG PO (17:56)
[2019-07-02] MEDS: Pravastatin 80 MG Tablet PO (21:27)
[2019-07-02] MEDS: MELATONIN 3 MG TABLET PO (21:27)
[2019-07-03 06:03] LABS: International Normalized Ratio 2.2; Prothrombin Time (Protime)PT. 24.3 SECONDS (11.7-14.9)
[2019-07-03] MEDS: amLODIPine 2.5 MG Tablet PO (06:04)
[2019-07-03 06:06] VITALS: BP 130/82; PULSE 72
[2019-07-03] MEDS: Metoprolol Tartrate 50 MG Tablet PO ×2 (06:06→16:57)
[2019-07-03] MEDS: Menthol/Lanolin/Calamine/Znox 113 GM Tube 1 APPLIC TOPICAL ×2 (06:07→21:11)
[2019-07-03 06:26] LABS: Bedside Glucose 119 mg/dL (70-110)
[2019-07-03] MEDS: metFORMIN HCl 500 MG Tablet PO (08:42)
[2019-07-03] MEDS: Multivitamins,Therapeutic Tablet 1 TABLET PO (08:42)
--- NOTE | 2019-07-03 09:21 | PCA ---
Assisted patient off of toilet. Patient has a BSC/ high rise over toilet. When patient stood up he had a small skin tear with small amount of blood on back of right thigh. Patient says his thigh got pinched in the BSC seat. RN notified
--- NOTE | 2019-07-03 10:51 | MDS.RN ---
Information for the mds was obtained from review of the clinical record, interview of resident, staff, and direct observation of resident's care.
--- NOTE | 2019-07-03 14:12 | CASEMGMT ---
Addendum entered by Ashley Loja 07/03/19 17:13: Therapy spoke with pt whom agreed to C PT/OT. Spoke with pt and whom was present - provided them with a list of [facility] agencies. Pt chose [facility] - referral made for PT/OT. Original Note: Social Work Spoke with pt whom is requesting to DC home 07/04. Pt feels comfortable to DC and more therapy won't help anything. IDT agreeable to DC. Pt denied HHC and outpatient therapy and any DME needs. Plan: DC home with 07/04 with no needs. Ashley Loja, [employer] FERMENTATION OPERATOR
--- NOTE | 2019-07-03 14:44 | CHAPLAIN ---
Type of Pastoral Visit ___ Initial Visit _x__ Follow-up Visit ___ On-call Visit ___ General Patient Visit ___ Spiritual Assessment ___ Family Conference ___ Bereavement ___ Rapid Response ___ Code Blue ___ Other (describe below) Pastoral Care Referral From _x__ Patient ___ Family ___ Nurse ___ Physician ___ Cnc Machinist ___ Sawmill Hand ___ Other (describe below) Sacrament/Intervention _x__ Active listening ___ Anointing ___ Lutheran ___ Bereavement ___ Communion ___ Laura exploration ___ ___ Life review ___ Prayer ___ Reconciliation ___ Sacrament of Sick _x__ Supportive presence ___ Wedding ___ Other (describe below) Pastoral Comments patient had other visitors in the room; pt states he is going home tomorrow
[2019-07-03 16:00] VITALS: BP 139/67; PULSE 85; RESP 16; TEMP 36.8; O2SAT 96
[2019-07-03 16:57] VITALS: PULSE 85
[2019-07-03] MEDS: Warfarin 4 MG, Warfarin 2.5 MG 6.5 MG PO (16:57)
--- NOTE | 2019-07-03 20:24 | DCINST_ITS ---
- Discharge Diagnoses Current Active Problems: Current Active and Chronic Problems (Last Reviewed 06/08/19 @ 12:38 by Kaitlynn Boyle DO) Debility (Acute) Acute exacerbation of chronic low back pain (Acute) Body mass index (BMI) 40.0-44.9, adult (Chronic) Chronic diastolic (congestive) heart failure (Chronic) Chronic pain (Chronic) Hyperlipidemia (Chronic) Moderate pulmonary arterial systolic hypertension (Chronic) You will use the following diet at home:: No restrictions, Regular Your food should be the consistency of: Regular Your liquids should be the consistency of: Regular/Thin Discharge Activity: Return to Normal Activity, May Shower, Use Walker Weight Bearing Status: Weight bearing as tolerated Call your doctor if you observe: Fever of 101 or Higher, Inability to urinate, Inability to have a bowel movement, Shortness of breath, Chest pain, Uncontrolled pain Allergies/Adverse Reactions: Allergies naproxen [From Naprosyn] Allergy (Unknown, Verified 06/03/19 15:36) Hives codeine Allergy (Verified 06/03/19 15:36) Hives gabapentin Allergy (Verified 06/03/19 15:36) Hives hydrocodone [From Vicodin] Allergy (Verified 06/03/19 15:36) Hives levofloxacin [From Levaquin] Allergy (Verified 06/03/19 15:36) Hives lisinopril Allergy (Verified 06/03/19 15:36) Hives morphine Allergy (Verified 06/03/19 15:36) Hives sertraline [From Zoloft] Allergy (Verified 06/03/19 15:36) Hives simvastatin [From Zocor] Allergy (Verified 06/03/19 15:36) Hives sulfamethoxazole Allergy (Verified 06/03/19 15:36) Hives Medications to take at Discharge Metoprolol Tartrate [Lopressor (beta filiberto)] 50 mg PO BID 05/20/18 Pravastatin [Pravachol] 80 mg PO QHS 05/20/18 metFORMIN HCl [Glucophage] 500 mg PO DAILY 05/20/18 Multivitamin [Multiple Vitamins] 1 ea PO DAILY 08/19/18 Melatonin 3 mg PO QHS 06/20/19 Menthol/Lanolin/Calamine/Znox [Calmoseptine Ointment] 1 applic TOPICAL BID@06,199906/20/19 Acetaminophen [Tylenol] 1,000 mg PO BID PRN PRN tablet 07/03/19 Amlodipine [Norvasc] 2.5 mg PO DAILY #30 tab 07/03/19 Warfarin [Coumadin] 6.5 mg PO DAILY@1700 tablet 07/03/19 The following prescriptions were given: Amlodipine [Norvasc] 2.5 mg PO DAILY #30 tab Transmission Status: Pending to [id number] Primary Care Physician: Chiki Brooks MD [Primary Care Provider] - Please follow up with your Primary Care Physician in: 1 week. Test Results: Test results from this visit will be discussed in further detail at your follow- up appointment, if applicable. Please Follow Up With: Chiki Brooks MD When: 1 week after discharge from TCU Please Follow Up With: Catherine Ortiz MD When: 1 month after discharge from TCU Proposed Discharge Date: 07/04/19
--- NOTE | 2019-07-03 20:26 | PCM.DC.SUM ---
Discharge Date and Diagnosis - Problem List Patient Problems: Active and Suspected Problems (Last Reviewed 06/08/19 @ 12:38 by Kaitlynn Boyle DO) Debility (Acute) Acute exacerbation of chronic low back pain (Acute) Date of Admission: 06/20/19 Date of Discharge: 07/04/19 - Primary Discharge Diagnosis Active and Suspected Problems (Last Reviewed 06/08/19 @ 12:38 by Kaitlynn Boyle DO) Debility (Acute) Acute exacerbation of chronic low back pain (Acute) - Secondary Discharge Diagnosis Chronic Problems (Last Reviewed 06/08/19 @ 12:38 by Kaitlynn Boyle DO) Morbid obesity (Chronic) Lumbar canal stenosis (Chronic) Hypogonadism (Chronic) Obstructive sleep apnea (Chronic) was not compliant with CPAP at home but, he is wearing it in the hospital and admits he feels better and sleeps better Body mass index (BMI) 40.0-44.9, adult (Chronic) Chronic diastolic (congestive) heart failure (Chronic) Chronic pain (Chronic) Hyperlipidemia (Chronic) Moderate pulmonary arterial systolic hypertension (Chronic) On amiodarone therapy (Chronic) History of right and left heart catheterization (Chronic 02/14/19) Normal Left Ventricular systolic function; LVEF: by LV gram 65 %; Elevated Left Ventricular End Diastolic Pressure; Non obstructive coronary arteries; The patient has pulmonary hypertension which is moderate. 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 Discharge home with . Patient Problems: Active and Suspected Problems (Last Reviewed 06/08/19 @ 12:38 by Kaitlynn Boyle DO) Debility (Acute) Acute exacerbation of chronic low back pain (Acute) - Physical Exam Vitals/I&O's: Vital Signs Temp Pulse Resp BP Pulse Ox 98.3 F 85 16 139/67 H 96 07/03/19 16:00 07/03/19 16:57 07/03/19 16:00 07/03/19 16:00 07/03/19 16:00 Oxygen Delivery Method Room Air Weight: 112.973 kg Body Mass Index (BMI) 40.4 Intake and Output for Last 24 Hours 07/01/19 07/02/19 07/03/19 23:59 23:59 23:59 Intake Total 720 / 720 600 / 600 840 / 840 Output Total 200 / 200 450 / 450 Balance 520 / 520 150 / 150 840 / 840 Laboratory Results 07/03/19 05:15: PT 24.3 H, INR 2.2 07/03/19 06:03: POC Glucose 119 H Current Medications Acetaminophen (Tylenol) 1,000 mg PO BID PRN PRN PRN Reason: Pain Score 1-3/10 Amlodipine Besylate (Norvasc) 2.5 mg PO DAILY [facility] Last Admin: 07/03/19 06:04 Dose: 2.5 mg Documented by: Bisacodyl (Dulcolax) 10 mg RECTAL DAILY PRN PRN Reason: Constipation Calamine/Phenol (Calmoseptine Ointment) 1 applic TOPICAL BID@0600,1999 [facility]; Protocol Last Admin: 07/03/19 06:07 Dose: 1 applicatio Documented by: Melatonin (Melatonin) 3 mg PO QHS [facility] Last Admin: 07/02/19 21:27 Dose: 3 mg Documented by: [facility] Admin: 07/03/19 08:42 Dose: 500 mg Documented by: Metoprolol Tartrate (Lopressor (Beta Gilbert)) 50 mg PO BID [facility] Last Admin: 07/03/19 16:57 Dose: 50 mg Documented by: Multivitamins (Multivitamin) 1 tablet PO DAILY@0800 [facility] Last Admin: 07/03/19 08:42 Dose: 1 tablet Documented by: Polyethylene Glycol (Miralax) 17 gm PO DAILY [facility] Last Admin: 07/03/19 06:07 Dose: Not Given Documented by: Pravastatin Sodium (Pravachol) 80 mg PO QHS [facility] Last Admin: 07/02/19 21:27 Dose: 80 mg Documented by: Senna/Docusate Sodium (Senokot-S, Yokasta-Colace) 2 tablet PO BID [facility] Last Admin: 07/03/19 16:58 Dose: Not Given Documented by: Tramadol HCl (Ultram) 50 mg PO Q6H PRN PRN PRN Reason: Pain Score 4-10/10 Warfarin Sodium 4 mg/ Warfarin (Sodium 2.5 mg) 6.5 mg PO DAILY@1700 [facility] Last Admin: 07/03/19 16:57 Dose: 6.5 mg Documented by: Discharge Diet: No Restrictions Discharge Activity: Return to Normal Activity, May Shower, Use Walker Weight Bearing Status: Weight bearing as tolerated Call your doctor if you observe: Fever of 101 or Higher, Inability to urinate, Inability to have a bowel movement, Shortness of breath, Chest pain, Uncontrolled pain Home Medications: Medications to take at Discharge Metoprolol Tartrate [Lopressor (beta gilbert)] 50 mg PO BID 05/20/18 Pravastatin [Pravachol] 80 mg PO QHS 05/20/18 metFORMIN HCl [Glucophage] 500 mg PO DAILY 05/20/18 Multivitamin [Multiple Vitamins] 1 ea PO DAILY 08/19/18 Melatonin 3 mg PO QHS 06/20/19 Menthol/Lanolin/Calamine/Znox [Calmoseptine Ointment] 1 applic TOPICAL BID@0600,2000 06/20/19 Acetaminophen [Tylenol] 1,000 mg PO BID PRN PRN tablet 07/03/19 Amlodipine [Norvasc] 2.5 mg PO DAILY #30 tab 07/03/19 Warfarin [Coumadin] 6.5 mg PO DAILY@1700 tablet 07/03/19 Following Prescrptions Were Given to Patient: Amlodipine [Norvasc] 2.5 mg PO DAILY #30 tab Transmission Status: Pending to [id number] Other Amb Orders: Prothrombin Time w/INR Time Frame: 1 Day, Facility: [facility], Location: Laboratory Primary Care Physician: Chiki Brooks MD [Primary Care Provider] - Please follow up with your Primary Care Physician in: 1 week. Please Follow Up With: Chiki Brooks MD When: 1 week after discharge from TCU Please Follow Up With: Catherine Ortiz MD When: 1 month after discharge from TCU Disposition: Home Minutes spent on discharge:: 30 Patient Condition:: Stable Medical Necessity - Tobacco Use Smoking Status: Former smoker Tobacco Use: Non-smoker Meaningful Use Info Meaningful Use Diagnoses (Choose all that apply): None applicable
[2019-07-03] MEDS: MELATONIN 3 MG TABLET PO (21:10)
[2019-07-03] MEDS: Pravastatin 80 MG Tablet PO ×3 (21:10)
[2019-07-04] MEDS: Polyethylene Glycol 3350 17 GM PACKET PO (05:04)
[2019-07-04 05:05] VITALS: BP 137/68; PULSE 67
[2019-07-04] MEDS: Senna/Docusate Sodium 1 Tablet 2 TABLET PO (05:05)
[2019-07-04] MEDS: Metoprolol Tartrate 50 MG Tablet PO (05:05)
[2019-07-04] MEDS: amLODIPine 2.5 MG Tablet PO (05:05)
[2019-07-04] MEDS: Menthol/Lanolin/Calamine/Znox 113 GM Tube 1 APPLIC TOPICAL (05:07)
[2019-07-04 06:35] LABS: Bedside Glucose 107 mg/dL (70-110)
[2019-07-04] MEDS: metFORMIN HCl 500 MG Tablet PO (07:59)
[2019-07-04] MEDS: Multivitamins,Therapeutic Tablet 1 TABLET PO (07:59)
[2019-07-04 11:05] VITALS: BP 136/65; PULSE 62; RESP 16; TEMP 36.2; O2SAT 96
--- NOTE | 2019-07-04 14:45 | CASEMGMT ---
Social Work Reviewed and agreed with social work video production intern documentation on this date. Ashley Loja, CHORE TENDER BOILERMAKER INDUSTRIAL BOILERS
== END 2019-07-04 11:44 | disposition home or self-care (01) | DRG 552 ==
PROVIDERS: Admitting Provider Family Medicine Geriatric Medicine; Family Provider Family Medicine; PCP Family Medicine; Visit Provider Family Medicine Geriatric Medicine
DX: M48.061 Spinal stenosis, lumbar region without neurogenic claudication (principal); I50.32 Chronic diastolic (congestive) heart failure; Z68.41 Body mass index [BMI] 40.0-44.9, adult; I48.20 Chronic atrial fibrillation, unspecified; I11.0 Hypertensive heart disease with heart failure; E78.5 Hyperlipidemia, unspecified; G89.29 Other chronic pain; E11.51 Type 2 diabetes mellitus with diabetic peripheral angiopathy without gangrene; M19.90 Unspecified osteoarthritis, unspecified site; D69.59 Other secondary thrombocytopenia; T45.515D Adverse effect of anticoagulants, subsequent encounter; E66.01 Morbid (severe) obesity due to excess calories; G47.33 Obstructive sleep apnea (adult) (pediatric); Z91.19 Patient's noncompliance with other medical treatment and regimen; Z87.891 Personal history of nicotine dependence
CPT/HCPCS: 36415; 80048; 82962; 85025; 85610; 97110; 97116; 97162; 97166; 97530; 97535; 97802

== ENCOUNTER → 2019-07-25 | Outpatient (CLI) | payer MEDICARE, OTHER, SELFPAY ==
[2019-07-25 17:00] LABS: International Normalized Ratio 1.7; Prothrombin Time (Protime)PT. 19.7 SECONDS (11.7-14.9)
== END | disposition home or self-care (01) ==
LOC: LABSPEC 16:40
PROVIDERS: PCP Family Medicine; Referring Provider Family Medicine; Visit Provider Family Medicine
DX: I48.91 Unspecified atrial fibrillation (principal); I50.9 Heart failure, unspecified
CPT/HCPCS: 85610

== ENCOUNTER → 2019-10-06 20:00 | Outpatient (CLI) | payer MEDICARE, OTHER, SELFPAY ==
[2019-08-21 10:42] VITALS: BMI 40.4
[2019-09-25 08:43] VITALS: BMI 40.3
== END ==
PROVIDERS: PCP Family Medicine; Visit Provider Internal Medicine Critical Care Medicine
DX: G47.33 Obstructive sleep apnea (adult) (pediatric) (principal)
CPT/HCPCS: 95811

== ENCOUNTER → 2019-10-18 11:39 | Outpatient (CLI) | payer MEDICARE, OTHER, SELFPAY ==
[2019-09-25 08:43] VITALS: BMI 40.3
[2019-10-18 15:42] LABS: Anion Gap 8 (5-15); BUN 23 mg/dL (7-18); Chloride 105 mmol/L (98-107); Cholesterol 106 mg/dL (200); Creatinine, Serum 0.96 mg/dL (0.70-1.30); EST Glomerular Filtration Rate 80 mL/min (>60); Est Glom Filt Rate - Afr Amer 97 mL/min (>60); Glucose 143 mg/dL (74-106); High Density Lipoprotein 39 mg/dL; Potassium 4.4 mmol/L (3.5-5.1); Sodium Level 141 mmol/L (136-145); Triglycerides 191 mg/dL; Very Low Density Lipoprotein 38 mg/dL (5-40)
== END ==
PROVIDERS: PCP Family Medicine; Visit Provider Family Medicine
DX: E11.9 Type 2 diabetes mellitus without complications (principal)
CPT/HCPCS: 36415; 80048; 80061

== ENCOUNTER → 2019-10-23 09:05 | Outpatient (CLI) | payer MEDICARE, OTHER, SELFPAY ==
[2019-08-21 10:42] VITALS: BMI 40.4
[2019-09-25 08:43] VITALS: BMI 40.3
--- NOTE | 2019-10-26 08:21 | PFT ---
INTRODUCTION: The patient is a 79-year-old male that presents for pulmonary function studies secondary to a diagnosis of dyspnea. Respiratory therapy reports good patient effort. Bronchodilators were used during testing. INTERPRETATION: Forced expiration spirometry demonstrates the presence of a mild large airways obstructive ventilatory defect. There was no significant response to aerosolized bronchodilators. Spirograms are of good quality and plateau normally. Body plethysmography was performed and reveals lung volumes to be within normal limits. Diffusing capacity by single breath CO is also within normal limits. There has been significant improvement in the patient's pulmonary function studies since March 2019. IMPRESSION: Irreversible mild large airways obstructive ventilatory defect with normal lung volumes and preserved diffusing capacity. There has been significant improvement in the patient's PFT since March 2019.
== END ==
PROVIDERS: PCP Family Medicine; Referring Provider Internal Medicine Critical Care Medicine; Visit Provider Internal Medicine Critical Care Medicine
DX: R06.00 Dyspnea, unspecified (principal)
CPT/HCPCS: 94060; 94726; 94729

== ENCOUNTER → 2020-10-18 11:15 | Outpatient (CLI) | payer MEDICARE, OTHER, SELFPAY ==
[2020-04-01 13:24] VITALS: BMI 43.9
[2020-10-18 15:35] LABS: AST(SGOT) 23 U/L (15-37); Alanine Aminotransfer ALT/SGPT 38 U/L (16-61); Albumin, Serum 3.6 g/dL (3.2-5.0); Alkaline Phosphatase 52 U/L (45-117); Anion Gap 5 (5-15); BUN 18 mg/dL (7-18); Bilirubin, Direct 0.19 mg/dL (0.00-0.30); Calcium,Total 8.9 mg/dL (8.5-10.1); Chloride 105 mmol/L (98-107); Cholesterol 172 mg/dL (200); Creatinine, Serum 0.95 mg/dL (0.70-1.30); EST Glomerular Filtration Rate 81 mL/min (>60); Est Glom Filt Rate - Afr Amer 98 mL/min (>60); Globulin 3.2 g/dL (2.2-4.2); Glucose 185 mg/dL (74-106); High Density Lipoprotein 40 mg/dL; Potassium 4.3 mmol/L (3.5-5.1); Protein, Total 6.8 g/dL (6.4-8.2); Sodium Level 139 mmol/L (136-145); Triglycerides 197 mg/dL; Very Low Density Lipoprotein 39 mg/dL (5-40)
== END ==
PROVIDERS: PCP Family Medicine; Referring Provider Family Medicine; Visit Provider Family Medicine
DX: E11.9 Type 2 diabetes mellitus without complications (principal)
CPT/HCPCS: 36415; 80048; 80061; 80076

== ENCOUNTER → 2021-05-07 09:46 | Outpatient (CLI) | payer MEDICARE, OTHER, SELFPAY ==
[2021-05-07 12:42] LABS: Anion Gap 8 (5-15); BUN 21 mg/dL (7-18); BUN/Creat Ratio 23.7 RATIO (10-20); Calcium,Total 8.9 mg/dL (8.5-10.1); Chloride 104 mmol/L (98-107); Cholesterol 166 mg/dL (200); Creatinine, Serum 0.88 mg/dL (0.70-1.30); EST Glomerular Filtration Rate 88 mL/min (>60); Est Glom Filt Rate - Afr Amer 106 mL/min (>60); Glucose 117 mg/dL (74-106); High Density Lipoprotein 41 mg/dL; Potassium 4.7 mmol/L (3.5-5.1); Sodium Level 140 mmol/L (136-145); Triglycerides 108 mg/dL; Very Low Density Lipoprotein 22 mg/dL (5-40)
== END ==
PROVIDERS: PCP Family Medicine; Referring Provider Family Medicine; Visit Provider Family Medicine
DX: E11.9 Type 2 diabetes mellitus without complications (principal)
CPT/HCPCS: 36415; 80048; 80061

== ENCOUNTER 2021-08-29 17:08 | Inpatient (IN) | payer MEDICARE, OTHER, SELFPAY ==
[2021-08-29 17:37] VITALS: BP 146/68; PULSE 55; RESP 16; RESP 18; TEMP 36.6; O2SAT 92; BMI 42.6
[2021-08-29] MEDS: traMADol 50 MG Tablet 75 MG PO (21:00)
[2021-08-29] MEDS: Senna Tablet 1 TABLET PO (21:01)
[2021-08-29] MEDS: MELATONIN 10 MG TABLET 5 MG PO (21:02)
[2021-08-29] MEDS: Enoxaparin 60 MG/0.6 ML Syringe SC (21:02)
[2021-08-29] MEDS: Methocarbamol 500 MG Tablet PO (23:48)
[2021-08-30 00:11] VITALS: BP 144/72; PULSE 62; RESP 16; TEMP 36.8; O2SAT 93
[2021-08-30] MEDS: Methocarbamol 500 MG Tablet PO ×4 (05:28→23:41)
[2021-08-30] MEDS: Menthol/Lanolin/Calamine/Znox 113 GM Tube 1 APPLIC TOPICAL ×2 (05:28→18:20)
[2021-08-30] MEDS: Polyethylene Glycol 3350 17 GM PACKET PO (05:28)
[2021-08-30] MEDS: Enoxaparin 60 MG/0.6 ML Syringe SC (05:28)
[2021-08-30 06:41] LABS: Bedside Glucose 122 mg/dL (74-106)
[2021-08-30 07:19] LABS: Absolute Lymphocyte Count 0.84 X10^3/uL (0.83-4.51); Absolute Neutrophil Count 2.6 X10^3/uL (2.0-7.7); Basophil# 0.03 X10^3/uL; Basophil% 0.7 % (0-1); Eosinophil# 0.23 X10^3/uL; Eosinophils% 5.5 % (0-5); Hematocrit 31.1 % (40-54); Hemoglobin 10.1 g/dL (13.0-16.5); Lymphocyte # 0.84 X10^3/ul (0.83-4.51); Mean Corp Hgb Conc 32.5 g/dL (32-36); Mean Corpuscular Volume 101.6 fL (80-94); Mean Platelet Vol. 9.4 fl (6.2-12.0); Monocyte# 0.41 X10^3/uL; Monocyte% 9.7 % (0-10); NRBC Flagged by Analyzer 0 % (0-5); Neutrophil # 2.58 X10^3/uL (2.7-7.7); Neutrophil % 61.2 % (47-70); Platelet Count 190 K/mm3 (150-450); RBC Distribution Width CV 15.1 % (11.6-14.6); Red Blood Count 3.06 M/mm3 (4.6-6.2); White Blood Count 4.2 K/mm3 (4.4-11.0)
[2021-08-30 07:50] VITALS: PULSE 92; RESP 16; O2SAT 92
[2021-08-30 07:56] LABS: Anion Gap 4 (5-15); BUN 18 mg/dL (7-18); BUN/Creat Ratio 23.5 RATIO (10-20); Calcium,Total 8.3 mg/dL (8.5-10.1); Chloride 105 mmol/L (98-107); Creatinine, Serum 0.76 mg/dL (0.70-1.30); EST Glomerular Filtration Rate 104 mL/min (>60); Est Glom Filt Rate - Afr Amer 126 mL/min (>60); Estimated Creatinine Clearance 52.28 ml/min; Glucose 128 mg/dL (74-106); Potassium 4.2 mmol/L (3.5-5.1); Sodium Level 136 mmol/L (136-145)
[2021-08-30] MEDS: metFORMIN HCl 500 MG Tablet PO ×2 (08:11→18:17)
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
[2021-08-30] MEDS: Tuberculin,Purif.prot.deriv. 50 TU/ML Vial 0.1 ML ID (13:17)
[2021-08-30 16:00] VITALS: BP 124/69; PULSE 101; RESP 16; TEMP 37; O2SAT 94
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
--- NOTE | 2021-08-30 17:35 | RAD_ITS ---
STUDY: X-RAY - RIGHT FOOT CLINICAL: Male, 81 years old. pt states ankle fracture x 1 week ago, surgery to reduce ankle fracture x 1 week ago TECHNIQUE: 3 view(s) of the foot. COMPARISON: None. FINDINGS: Double density overlying the talocalcaneal region on lateral view is not well seen. Degenerative changes at the first TMT joint. Normal metatarsi. Normal metatarsophalangeal joint of the great toe. Normal tibial and fibular sesamoid bones. Normal interphalangeal joint of the great toe. Normal phalanges of the great toe. Normal second through fifth metatarsophalangeal joints. Normal interphalangeal joints and phalanges of the lesser toes. Diffuse soft tissue swelling. RAD/Foot min 3 Views IMPRESSION: Deformity of the talus suggesting fracture, not well seen on x-ray. Recommend CT for better characterization. Electronically Signed: Familia Arrieta MD ([place]) at 18:24 EDT ,
--- NOTE | 2021-08-30 18:02 | RAD_ITS ---
STUDY: X-RAY - RIGHT ANKLE REASON FOR EXAM: Male, 81 years old. ankle fracture reduction TECHNIQUE: 3 view(s) of the ankle. COMPARISON: None. FINDINGS: Normal visualized distal tibia and fibula. Normal medial and lateral malleoli. Normal tibiotalar articulation and ankle mortise. Double density overlying the talocalcaneal region on lateral view is not well seen. The visualized subtalar, talonavicular, calcaneocuboid and tarsal articulations are normal. Diffuse soft tissue swelling. RAD/Ankle min 3 Views IMPRESSION: Deformity of the talus suggesting fracture, not well seen on x-ray. Recommend CT for better characterization. Electronically Signed: Familia Arrieta MD ([place]) at 18:25 EDT ,
[2021-08-30] MEDS: Senna/Docusate Sodium 1 Tablet PO (18:18)
[2021-08-30] MEDS: Rivaroxaban 10 MG Tablet PO (18:18)
[2021-08-30] MEDS: Acetaminophen 500 MG Tablet 1000 MG PO (19:47)
[2021-08-30] MEDS: traMADol 50 MG Tablet 75 MG PO (19:47)
[2021-08-30] MEDS: MELATONIN 10 MG TABLET 5 MG PO (21:18)
[2021-08-31] MEDS: traMADol 50 MG Tablet 75 MG PO ×2 (03:03→21:43)
[2021-08-31] MEDS: Acetaminophen 500 MG Tablet 1000 MG PO ×2 (03:04→21:42)
[2021-08-31] MEDS: Methocarbamol 500 MG Tablet PO ×3 (06:00→17:39)
[2021-08-31] MEDS: Senna/Docusate Sodium 1 Tablet PO ×2 (06:01→17:39)
[2021-08-31] MEDS: Polyethylene Glycol 3350 17 GM PACKET PO (06:01)
[2021-08-31 07:01] LABS: Bedside Glucose 128 mg/dL (74-106)
[2021-08-31] MEDS: metFORMIN HCl 500 MG Tablet PO ×2 (07:55→17:39)
--- NOTE | 2021-08-31 12:33 | NURSING ---
Pt's took home wallet and cross that was in locked in med box.
[2021-08-31] MEDS: Bisacodyl 5 MG Tablet 10 MG PO (15:48)
[2021-08-31 16:00] VITALS: BP 126/58; PULSE 98; RESP 16; TEMP 36.4; O2SAT 98
[2021-08-31] MEDS: Rivaroxaban 10 MG Tablet PO (17:36)
[2021-08-31] MEDS: Menthol/Lanolin/Calamine/Znox 113 GM Tube 1 APPLIC TOPICAL (18:08)
[2021-08-31] MEDS: MELATONIN 10 MG TABLET 5 MG PO (21:44)
[2021-09-01] MEDS: Methocarbamol 500 MG Tablet PO ×4 (00:29→17:36)
[2021-09-01] MEDS: Senna/Docusate Sodium 1 Tablet PO ×2 (05:13→17:36)
[2021-09-01] MEDS: Polyethylene Glycol 3350 17 GM PACKET PO (05:13)
[2021-09-01 06:46] LABS: Bedside Glucose 135 mg/dL (74-106)
[2021-09-01] MEDS: metFORMIN HCl 500 MG Tablet PO ×2 (08:10→17:36)
[2021-09-01] MEDS: Bisacodyl 5 MG Tablet 10 MG PO (08:13)
[2021-09-01] MEDS: traMADol 50 MG Tablet 75 MG PO (08:13)
[2021-09-01 08:57] LABS: Vitamin D,25 Hydroxy 28.3 ng/mL
--- NOTE | 2021-09-01 10:16 | CASEMGMT ---
Social Work Met with patient for initial assessment. Pt wishes to have be primary contact for updates and DC plans. Chart reflects. Discussed code status and MOLST form. Pt wishes to be DNR-CCA, no intubation. MOLST communicated to , placed in chart. Explained Medicare benefit. Encouraged to contact secondary insurance to ensure copay coverage. The goal is for pt to return with . Pt is currently NWBS to RLE and RUE. SW to continue to follow for DC planning. Ashley Loja, HOUSEKEEPER/CUSTODIAN/LAUNDRY WORKER PAYMENT POSTER
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
[2021-09-01 14:24] VITALS: BP 124/84; PULSE 92; RESP 16; TEMP 36.7; O2SAT 94
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
[2021-09-01] MEDS: Magnesium Citrate 300 ML PO (17:36)
[2021-09-01] MEDS: Rivaroxaban 10 MG Tablet PO (17:36)
[2021-09-01] MEDS: MELATONIN 10 MG TABLET 5 MG PO (21:08)
[2021-09-01] MEDS: Acetaminophen 500 MG Tablet 1000 MG PO (21:09)
--- NOTE | 2021-09-01 23:22 | NURSING ---
Pt. offered assist to bed, declines stating I haven't slept in one of those things in years, I'm more comfortable in my chair. Pt. educated on importance of maintaining skin integrity and offloading pressure if prefers to sleep in reclining chair, pt. verbalizes understanding. Repositioned for comfort EAx2. No distress observed or reported. Call light in reach.
[2021-09-01 23:35] VITALS: PULSE 79; RESP 16; O2SAT 97
[2021-09-02] MEDS: Methocarbamol 500 MG Tablet PO ×5 (00:01→23:56)
[2021-09-02] MEDS: traMADol 50 MG Tablet 75 MG PO (04:19)
[2021-09-02] MEDS: Senna/Docusate Sodium 1 Tablet PO ×2 (06:08→18:10)
[2021-09-02] MEDS: Polyethylene Glycol 3350 17 GM PACKET PO (06:08)
[2021-09-02] MEDS: Menthol/Lanolin/Calamine/Znox 113 GM Tube 1 APPLIC TOPICAL (06:08)
[2021-09-02 06:31] LABS: Bedside Glucose 134 mg/dL (74-106)
[2021-09-02] MEDS: metFORMIN HCl 500 MG Tablet PO ×2 (07:58→18:10)
[2021-09-02 14:21] VITALS: BP 126/70; PULSE 100; RESP 17; TEMP 36.9; O2SAT 95
--- NOTE | 2021-09-02 15:34 | CHAPLAIN ---
Type of Pastoral Visit ___ Initial Visit _x__ Follow-up Visit ___ On-call Visit ___ General Patient Visit ___ Spiritual Assessment ___ Family Conference ___ Bereavement ___ Rapid Response ___ Code Blue ___ Other (describe below) Pastoral Care Referral From _x__ Patient _x__ Family ___ Nurse ___ Physician ___ Senior Investigator ___ Hot Wound Spring Production Supervisor ___ Other (describe below) Sacrament/Intervention _x__ Active listening ___ Anointing ___ Oriental Orthodox ___ Bereavement ___ Communion _x__ Laura exploration ___ _x__ Life review _x__ Prayer ___ Reconciliation ___ Sacrament of Sick _x__ Supportive presence ___ Wedding ___ Other (describe below) Pastoral Comments
[2021-09-02] MEDS: Rivaroxaban 10 MG Tablet PO (18:10)
[2021-09-02] MEDS: MELATONIN 10 MG TABLET 5 MG PO (21:00)
[2021-09-02] MEDS: Acetaminophen 500 MG Tablet 1000 MG PO (21:00)
[2021-09-03] MEDS: traMADol 50 MG Tablet 75 MG PO (04:20)
[2021-09-03] MEDS: Acetaminophen 500 MG Tablet 1000 MG PO (06:03)
[2021-09-03] MEDS: Polyethylene Glycol 3350 17 GM PACKET PO (06:04)
[2021-09-03] MEDS: Senna/Docusate Sodium 1 Tablet PO ×2 (06:04→17:08)
[2021-09-03] MEDS: Menthol/Lanolin/Calamine/Znox 113 GM Tube 1 APPLIC TOPICAL (06:05)
[2021-09-03] MEDS: Methocarbamol 500 MG Tablet PO ×4 (06:05→23:12)
[2021-09-03 06:06] LABS: Bedside Glucose 116 mg/dL (74-106)
[2021-09-03] MEDS: metFORMIN HCl 500 MG Tablet PO ×2 (08:30→17:08)
--- NOTE | 2021-09-03 10:35 | CASEMGMT ---
Social Work IDT met with patient and for care plan meeting. Discussed patient's progress in PT/OT and nursing. Pt is NWBS rt hand and RLE which are barriers to therapy progress. Explained Medicare benefit. Encouraged to contact secondary insurance to ensure copay coverage. The goal is for pt to return home with . Pt has ramp to enter. Broached discussing needing alternative plan at DC. SW to continue to provide resources and assistance with DC plans. Ashley Loja, WELDER PRODUCTION LINE COMBINATION ARCHITECT INTERNSHIP
[2021-09-03 14:58] VITALS: BP 111/68; PULSE 99; RESP 18; TEMP 36.3; O2SAT 96
[2021-09-03] MEDS: Rivaroxaban 10 MG Tablet PO (17:08)
[2021-09-03] MEDS: MELATONIN 10 MG TABLET 5 MG PO (22:18)
[2021-09-03 22:34] VITALS: PULSE 85; RESP 16; O2SAT 92
[2021-09-04] MEDS: Polyethylene Glycol 3350 17 GM PACKET PO (05:13)
[2021-09-04] MEDS: Methocarbamol 500 MG Tablet PO ×3 (05:13→17:09)
[2021-09-04] MEDS: Senna/Docusate Sodium 1 Tablet PO ×2 (05:13→17:10)
[2021-09-04] MEDS: Menthol/Lanolin/Calamine/Znox 113 GM Tube 1 APPLIC TOPICAL ×2 (05:13→17:12)
[2021-09-04 06:21] LABS: Bedside Glucose 127 mg/dL (74-106)
[2021-09-04] MEDS: metFORMIN HCl 500 MG Tablet PO ×2 (08:49→17:09)
[2021-09-04] MEDS: Bisacodyl 5 MG Tablet 10 MG PO (14:26)
[2021-09-04 15:25] VITALS: PULSE 89; RESP 16; O2SAT 94
[2021-09-04 16:00] VITALS: BP 120/70; PULSE 81; RESP 18; TEMP 36.5; O2SAT 96
--- NOTE | 2021-09-04 16:02 | CHAPLAIN ---
Type of Pastoral Visit ___ Initial Visit _x__ Follow-up Visit ___ On-call Visit ___ General Patient Visit ___ Spiritual Assessment ___ Family Conference ___ Bereavement ___ Rapid Response ___ Code Blue ___ Other (describe below) Pastoral Care Referral From _x__ Patient _x__ Family ___ Nurse ___ Physician ___ Supply Chain Coordinator ___ Crop Nutrition Scientist ___ Other (describe below) Sacrament/Intervention _x__ Active listening ___ Anointing ___ Roman Catholic ___ Bereavement ___ Communion _x__ Laura exploration ___ _x__ Life review ___ Prayer ___ Reconciliation ___ Sacrament of Sick _x__ Supportive presence ___ Wedding ___ Other (describe below) Pastoral Comments
--- NOTE | 2021-09-04 16:57 | NURSING ---
dr gomes in to assess warmth and redness to LLE, new orders entered.
[2021-09-04] MEDS: Rivaroxaban 10 MG Tablet PO (17:09)
[2021-09-04] MEDS: Cephalexin 500 MG Capsule PO (17:45)
[2021-09-04] MEDS: Doxycycline 100 MG CAPSULE PO (17:45)
[2021-09-04] MEDS: MELATONIN 10 MG TABLET 5 MG PO (21:42)
[2021-09-05] MEDS: Methocarbamol 500 MG Tablet PO ×4 (00:34→17:55)
[2021-09-05] MEDS: Cephalexin 500 MG Capsule PO ×4 (00:34→17:54)
[2021-09-05] MEDS: Polyethylene Glycol 3350 17 GM PACKET PO (05:57)
[2021-09-05] MEDS: Senna/Docusate Sodium 1 Tablet PO ×2 (05:57→17:55)
[2021-09-05] MEDS: Doxycycline 100 MG CAPSULE PO ×2 (05:57→17:54)
[2021-09-05 06:36] LABS: Bedside Glucose 112 mg/dL (74-106)
[2021-09-05] MEDS: metFORMIN HCl 500 MG Tablet PO ×2 (08:45→17:54)
[2021-09-05 10:50] VITALS: PULSE 102; RESP 18; O2SAT 97
--- NOTE | 2021-09-05 14:11 | CASEMGMT ---
Social Work BIMS and PHQ-9 completed for MDS assessment. Ashley Loja, RETAIL DEPARTMENT RESET EASEMENT MAN
--- NOTE | 2021-09-05 14:22 | MDS.RN ---
Pain interview for ANDRA 09/05/21 completed.
[2021-09-05 14:39] VITALS: BP 111/70; PULSE 80; RESP 18; TEMP 36.6; O2SAT 95
[2021-09-05] MEDS: Rivaroxaban 10 MG Tablet PO (17:55)
--- NOTE | 2021-09-05 20:35 | NURSING ---
Patient called this Nurse into room. Patient request for mepilex to be removed off of his coccyx area. Patient stated, It's bugging me and I just want it off. Mepilex removed per patient. No open areas or redness noted.
[2021-09-05] MEDS: MELATONIN 10 MG TABLET 5 MG PO (21:02)
[2021-09-06] MEDS: Cephalexin 500 MG Capsule PO ×5 (00:32→23:55)
[2021-09-06] MEDS: Methocarbamol 500 MG Tablet PO ×5 (00:32→23:55)
[2021-09-06] MEDS: Doxycycline 100 MG CAPSULE PO ×2 (05:58→17:53)
[2021-09-06] MEDS: Polyethylene Glycol 3350 17 GM PACKET PO (05:58)
[2021-09-06] MEDS: Senna/Docusate Sodium 1 Tablet PO ×2 (05:58→17:53)
[2021-09-06] MEDS: Bisacodyl 5 MG Tablet 10 MG PO (05:58)
[2021-09-06] MEDS: Menthol/Lanolin/Calamine/Znox 113 GM Tube 1 APPLIC TOPICAL ×2 (06:00→17:54)
[2021-09-06 06:26] LABS: Bedside Glucose 132 mg/dL (74-106)
[2021-09-06 07:43] LABS: Absolute Lymphocyte Count 0.83 X10^3/uL (0.83-4.51); Basophil# 0.03 X10^3/uL; Basophil% 0.6 % (0-1); Eosinophil# 0.22 X10^3/uL; Eosinophils% 4.7 % (0-5); Hematocrit 33.2 % (40-54); Lymphocyte # 0.83 X10^3/ul (0.83-4.51); Lymphocyte % 17.8 % (19-41); Mean Corp Hgb Conc 33.1 g/dL (32-36); Mean Corpuscular Hgb 33.1 pg (27.0-32.0); Mean Platelet Vol. 8.8 fl (6.2-12.0); Monocyte% 10.8 % (0-10); NRBC Flagged by Analyzer 0 % (0-5); Neutrophil # 3.01 X10^3/uL (2.7-7.7); Neutrophil % 64.8 % (47-70); Platelet Count 262 K/mm3 (150-450); RBC Distribution Width SD 54.4 fl (35.1-43.9); Red Blood Count 3.32 M/mm3 (4.6-6.2); White Blood Count 4.7 K/mm3 (4.4-11.0)
[2021-09-06 08:13] LABS: Anion Gap 5 (5-15); BUN 21 mg/dL (7-18); BUN/Creat Ratio 22.3 RATIO (10-20); Calcium,Total 8.7 mg/dL (8.5-10.1); Chloride 104 mmol/L (98-107); Creatinine, Serum 0.94 mg/dL (0.70-1.30); EST Glomerular Filtration Rate 82 mL/min (>60); Est Glom Filt Rate - Afr Amer 99 mL/min (>60); Estimated Creatinine Clearance 55.62 ml/min; Glucose 121 mg/dL (74-106); Potassium 4.5 mmol/L (3.5-5.1); Sodium Level 134 mmol/L (136-145)
[2021-09-06] MEDS: metFORMIN HCl 500 MG Tablet PO ×2 (08:53→17:52)
[2021-09-06] MEDS: Tuberculin,Purif.prot.deriv. 50 TU/ML Vial 0.1 ML ID (10:01)
[2021-09-06 14:34] VITALS: BP 103/58; PULSE 78; RESP 16; TEMP 36.6; O2SAT 96
[2021-09-06] MEDS: Rivaroxaban 10 MG Tablet PO (17:52)
[2021-09-06] MEDS: Acetaminophen 500 MG Tablet 1000 MG PO (21:14)
[2021-09-06] MEDS: traMADol 50 MG Tablet 75 MG PO (21:15)
[2021-09-06] MEDS: MELATONIN 10 MG TABLET 5 MG PO (23:13)
[2021-09-07] MEDS: Methocarbamol 500 MG Tablet PO ×4 (06:00→23:21)
[2021-09-07] MEDS: Polyethylene Glycol 3350 17 GM PACKET PO (06:01)
[2021-09-07] MEDS: Cephalexin 500 MG Capsule PO ×4 (06:01→23:21)
[2021-09-07] MEDS: Doxycycline 100 MG CAPSULE PO ×2 (06:01→18:07)
[2021-09-07] MEDS: Senna/Docusate Sodium 1 Tablet PO ×2 (06:01→18:07)
[2021-09-07] MEDS: Acetaminophen 500 MG Tablet 1000 MG PO ×3 (06:11→18:14)
[2021-09-07] MEDS: traMADol 50 MG Tablet 75 MG PO ×3 (06:12→18:13)
[2021-09-07] MEDS: Menthol/Lanolin/Calamine/Znox 113 GM Tube 1 APPLIC TOPICAL ×2 (06:16→18:08)
[2021-09-07 06:41] LABS: Bedside Glucose 126 mg/dL (74-106)
[2021-09-07] MEDS: metFORMIN HCl 500 MG Tablet PO ×2 (08:14→18:07)
[2021-09-07 14:27] VITALS: BP 116/58; PULSE 80; RESP 18; TEMP 35.9; O2SAT 98
[2021-09-07] MEDS: Rivaroxaban 10 MG Tablet PO (18:07)
[2021-09-07] MEDS: Bisacodyl 5 MG Tablet 10 MG PO (18:13)
[2021-09-07] MEDS: MELATONIN 10 MG TABLET 5 MG PO (22:59)
[2021-09-08] MEDS: traMADol 50 MG Tablet 75 MG PO ×4 (00:59→23:59)
[2021-09-08] MEDS: Acetaminophen 500 MG Tablet 1000 MG PO ×2 (01:00→08:44)
[2021-09-08] MEDS: Doxycycline 100 MG CAPSULE PO ×2 (05:43→17:51)
[2021-09-08] MEDS: Methocarbamol 500 MG Tablet PO ×4 (05:44→23:59)
[2021-09-08] MEDS: Cephalexin 500 MG Capsule PO ×4 (05:44→23:59)
[2021-09-08] MEDS: Menthol/Lanolin/Calamine/Znox 113 GM Tube 1 APPLIC TOPICAL ×2 (05:45→17:52)
[2021-09-08 06:37] LABS: Bedside Glucose 128 mg/dL (74-106)
[2021-09-08] MEDS: metFORMIN HCl 500 MG Tablet PO ×2 (08:38→17:52)
[2021-09-08 10:50] VITALS: PULSE 99; RESP 18; O2SAT 97
--- NOTE | 2021-09-08 11:45 | NURSING ---
Financial Services Internship Note: MDS Section F completed.
[2021-09-08 14:27] VITALS: BP 112/64; PULSE 88; RESP 18; TEMP 36.3; O2SAT 98
[2021-09-08] MEDS: Rivaroxaban 10 MG Tablet PO (17:52)
[2021-09-08] MEDS: MELATONIN 10 MG TABLET 5 MG PO (21:23)
[2021-09-09] MEDS: traMADol 50 MG Tablet 75 MG PO (06:18)
[2021-09-09] MEDS: Methocarbamol 500 MG Tablet PO ×3 (06:19→23:55)
[2021-09-09] MEDS: Cephalexin 500 MG Capsule PO ×3 (06:19→23:55)
[2021-09-09] MEDS: Doxycycline 100 MG CAPSULE PO ×2 (06:19→17:08)
[2021-09-09] MEDS: Acetaminophen 500 MG Tablet 1000 MG PO (06:23)
[2021-09-09] MEDS: Menthol/Lanolin/Calamine/Znox 113 GM Tube 1 APPLIC TOPICAL ×2 (06:24→17:10)
[2021-09-09 06:41] LABS: Bedside Glucose 123 mg/dL (74-106)
[2021-09-09] MEDS: metFORMIN HCl 500 MG Tablet PO ×2 (08:10→17:09)
--- NOTE | 2021-09-09 09:15 | NURSING ---
Addendum entered by Ashlee Francis 09/09/21 15:30: Pt returned from appointment at this time, N.N.O f/u with ortho 09/23 at 1345, f/u with Plastics 09/25/21 1330 Original Note: Pt TG for appointment at this time
[2021-09-09 10:00] VITALS: PULSE 77; RESP 18; O2SAT 97
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
[2021-09-09 16:00] VITALS: BP 126/70; PULSE 73; RESP 16; TEMP 36.3; O2SAT 98
[2021-09-09] MEDS: Rivaroxaban 10 MG Tablet PO (17:09)
[2021-09-09] MEDS: Senna/Docusate Sodium 1 Tablet PO (17:09)
[2021-09-09] MEDS: MELATONIN 10 MG TABLET 5 MG PO (20:55)
[2021-09-10] MEDS: traMADol 50 MG Tablet 75 MG PO ×3 (02:18→17:06)
--- NOTE | 2021-09-10 02:27 | NURSING ---
Patient called out requesting for pain medication for his bottom. While administering medication, asked patient if he would like to try to lay in bed. Patient replied with No it makes my bottom hurt worse. This Nurse educated that the risk of getting a pressure ulcer can be high d/t staff being unable to turn patient routinely and patient not wanting to be repositioned in chair often. Explained to patient again, placing a Mepilex on the area may help pad the area, but patient refused.
[2021-09-10] MEDS: Cephalexin 500 MG Capsule PO ×3 (06:35→17:03)
[2021-09-10] MEDS: Doxycycline 100 MG CAPSULE PO ×2 (06:35→17:03)
[2021-09-10] MEDS: Senna/Docusate Sodium 1 Tablet PO ×2 (06:35→17:03)
[2021-09-10] MEDS: Polyethylene Glycol 3350 17 GM PACKET PO (06:35)
[2021-09-10] MEDS: Methocarbamol 500 MG Tablet PO ×3 (06:35→17:04)
[2021-09-10 06:36] LABS: Bedside Glucose 120 mg/dL (74-106)
[2021-09-10] MEDS: Acetaminophen 500 MG Tablet 1000 MG PO (06:40)
[2021-09-10] MEDS: Menthol/Lanolin/Calamine/Znox 113 GM Tube 1 APPLIC TOPICAL ×2 (06:44→17:08)
[2021-09-10] MEDS: metFORMIN HCl 500 MG Tablet PO ×2 (09:16→17:03)
--- NOTE | 2021-09-10 15:18 | CHAPLAIN ---
Type of Pastoral Visit ___ Initial Visit ___ Follow-up Visit ___ On-call Visit ___ General Patient Visit ___ Spiritual Assessment ___ Family Conference ___ Bereavement ___ Rapid Response ___ Code Blue ___ Other (describe below) Pastoral Care Referral From ___ Patient ___ Family ___ Nurse ___ Physician ___ Meal Temperer ___ Clinical Account Executive ___ Other (describe below) Sacrament/Intervention ___ Active listening ___ Anointing ___ Christian ___ Bereavement ___ Communion ___ Laura exploration ___ ___ Life review ___ Prayer ___ Reconciliation ___ Sacrament of Sick ___ Supportive presence ___ Wedding ___ Other (describe below) Pastoral Comments brief check in with patient as this wet process operator awaited opportunity to see other patients; casual conversation and support given
--- NOTE | 2021-09-10 15:21 | MDS.RN ---
Information for the mds was obtained from review of the clinical record, interview of resident, staff, and direct observation of resident's care.
[2021-09-10 15:41] VITALS: BP 111/63; PULSE 92; RESP 17; TEMP 36.2; O2SAT 96
[2021-09-10] MEDS: Rivaroxaban 10 MG Tablet PO (17:02)
[2021-09-11] MEDS: traMADol 50 MG Tablet 75 MG PO ×3 (00:48→17:22)
[2021-09-11] MEDS: MELATONIN 10 MG TABLET 5 MG PO (00:48)
[2021-09-11] MEDS: Cephalexin 500 MG Capsule PO ×4 (00:48→17:15)
[2021-09-11] MEDS: Methocarbamol 500 MG Tablet PO ×4 (00:48→17:13)
[2021-09-11] MEDS: Doxycycline 100 MG CAPSULE PO ×2 (06:09→17:15)
[2021-09-11] MEDS: Senna/Docusate Sodium 1 Tablet PO ×2 (06:09→17:15)
[2021-09-11] MEDS: Acetaminophen 500 MG Tablet 1000 MG PO ×2 (06:10→20:34)
[2021-09-11] MEDS: Menthol/Lanolin/Calamine/Znox 113 GM Tube 1 APPLIC TOPICAL ×2 (06:11→17:27)
[2021-09-11 06:21] LABS: Bedside Glucose 111 mg/dL (74-106)
[2021-09-11] MEDS: metFORMIN HCl 500 MG Tablet PO ×2 (08:20→17:14)
[2021-09-11] MEDS: Juven (unflavored) Packet 1 PACKET PO ×2 (08:30→17:15)
[2021-09-11 13:48] VITALS: BP 94/52; PULSE 95; RESP 16; TEMP 36.7; O2SAT 96
--- NOTE | 2021-09-11 14:44 | NURSING ---
Fingernails clipped today without injury, pt tolerated well.
[2021-09-11] MEDS: Rivaroxaban 10 MG Tablet PO (17:15)
[2021-09-12] MEDS: traMADol 50 MG Tablet 75 MG PO ×3 (00:16→21:03)
[2021-09-12] MEDS: Methocarbamol 500 MG Tablet PO ×4 (00:16→16:51)
[2021-09-12] MEDS: MELATONIN 10 MG TABLET 5 MG PO ×2 (00:18→21:04)
[2021-09-12 06:21] LABS: Bedside Glucose 123 mg/dL (74-106)
[2021-09-12] MEDS: Senna/Docusate Sodium 1 Tablet PO ×2 (06:28→16:51)
[2021-09-12] MEDS: Menthol/Lanolin/Calamine/Znox 113 GM Tube 1 APPLIC TOPICAL ×2 (06:31→21:05)
[2021-09-12] MEDS: metFORMIN HCl 500 MG Tablet PO ×2 (08:32→16:50)
[2021-09-12] MEDS: Juven (unflavored) Packet 1 PACKET PO ×2 (08:32→16:50)
[2021-09-12 11:00] VITALS: PULSE 79; RESP 18; O2SAT 95
[2021-09-12 14:47] VITALS: BP 106/50; PULSE 87; RESP 18; TEMP 36.1; O2SAT 92
[2021-09-12] MEDS: Rivaroxaban 10 MG Tablet PO (16:51)
[2021-09-13] MEDS: Methocarbamol 500 MG Tablet PO ×5 (00:19→23:57)
[2021-09-13] MEDS: Polyethylene Glycol 3350 17 GM PACKET PO (06:06)
[2021-09-13] MEDS: Senna/Docusate Sodium 1 Tablet PO ×2 (06:06→16:46)
[2021-09-13] MEDS: Menthol/Lanolin/Calamine/Znox 113 GM Tube 1 APPLIC TOPICAL ×2 (06:06→20:00)
[2021-09-13] MEDS: traMADol 50 MG Tablet 75 MG PO ×3 (06:11→23:57)
[2021-09-13 06:30] LABS: Bedside Glucose 132 mg/dL (74-106)
[2021-09-13 07:57] LABS: Absolute Lymphocyte Count 1.02 X10^3/uL (0.83-4.51); Absolute Neutrophil Count 2.6 X10^3/uL (2.0-7.7); Basophil# 0.02 X10^3/uL; Basophil% 0.5 % (0-1); Eosinophils% 4.7 % (0-5); Hematocrit 35.4 % (40-54); Hemoglobin 11.6 g/dL (13.0-16.5); Lymphocyte # 1.02 X10^3/ul (0.83-4.51); Lymphocyte % 23.8 % (19-41); Mean Corp Hgb Conc 32.8 g/dL (32-36); Mean Corpuscular Hgb 32.9 pg (27.0-32.0); Mean Corpuscular Volume 100.3 fL (80-94); Mean Platelet Vol. 8.9 fl (6.2-12.0); Monocyte# 0.45 X10^3/uL; Monocyte% 10.5 % (0-10); NRBC Flagged by Analyzer 0 % (0-5); Neutrophil # 2.57 X10^3/uL (2.7-7.7); Neutrophil % 59.8 % (47-70); Platelet Count 205 K/mm3 (150-450); RBC Distribution Width CV 14.6 % (11.6-14.6); RBC Distribution Width SD 53.4 fl (35.1-43.9); Red Blood Count 3.53 M/mm3 (4.6-6.2); White Blood Count 4.3 K/mm3 (4.4-11.0)
[2021-09-13] MEDS: Juven (unflavored) Packet 1 PACKET PO ×2 (07:57→16:45)
[2021-09-13] MEDS: metFORMIN HCl 500 MG Tablet PO ×2 (07:57→16:45)
[2021-09-13 08:23] LABS: Anion Gap 4 (5-15); BUN 29 mg/dL (7-18); BUN/Creat Ratio 36.1 RATIO (10-20); Calcium,Total 9.1 mg/dL (8.5-10.1); Chloride 104 mmol/L (98-107); EST Glomerular Filtration Rate 98 mL/min (>60); Est Glom Filt Rate - Afr Amer 119 mL/min (>60); Estimated Creatinine Clearance 65.35 ml/min; Glucose 125 mg/dL (74-106); Potassium 4.6 mmol/L (3.5-5.1); Sodium Level 133 mmol/L (136-145)
[2021-09-13] MEDS: Acetaminophen 500 MG Tablet 1000 MG PO ×2 (09:40→21:57)
[2021-09-13 13:51] VITALS: BP 112/58; PULSE 76; RESP 16; TEMP 36.3; O2SAT 95
[2021-09-13] MEDS: Rivaroxaban 10 MG Tablet PO (16:46)
[2021-09-13 21:40] VITALS: O2SAT 94
[2021-09-13] MEDS: MELATONIN 10 MG TABLET 5 MG PO (21:57)
[2021-09-14] MEDS: Polyethylene Glycol 3350 17 GM PACKET PO (05:47)
[2021-09-14] MEDS: Methocarbamol 500 MG Tablet PO ×4 (05:48→23:54)
[2021-09-14] MEDS: Senna/Docusate Sodium 1 Tablet PO ×2 (05:48→17:26)
[2021-09-14] MEDS: Menthol/Lanolin/Calamine/Znox 113 GM Tube 1 APPLIC TOPICAL ×2 (05:53→17:26)
[2021-09-14] MEDS: traMADol 50 MG Tablet 75 MG PO ×3 (05:58→20:28)
[2021-09-14 06:26] LABS: Bedside Glucose 122 mg/dL (74-106)
[2021-09-14] MEDS: Juven (unflavored) Packet 1 PACKET PO ×2 (07:58→17:26)
[2021-09-14] MEDS: metFORMIN HCl 500 MG Tablet PO ×2 (07:58→17:26)
[2021-09-14 10:45] VITALS: PULSE 71; RESP 18; O2SAT 96
--- NOTE | 2021-09-14 11:16 | NURSING ---
PT BACK HAS RED RASH,ASKED PT IF IT ITCHES OR HURTS PT STATED NO. THIS NURSE WASHED AND LOTION PT BACK UP. PT STATED IT FEELS BETTER AND THANKED THIS NURSE FOR HER TROUBLES.
[2021-09-14 16:00] VITALS: BP 130/68; PULSE 95; RESP 18; TEMP 36.2; O2SAT 96
[2021-09-14] MEDS: Rivaroxaban 10 MG Tablet PO (17:26)
[2021-09-14] MEDS: MELATONIN 10 MG TABLET 5 MG PO (20:28)
[2021-09-15] MEDS: traMADol 50 MG Tablet 75 MG PO ×2 (02:35→21:50)
[2021-09-15] MEDS: Polyethylene Glycol 3350 17 GM PACKET PO (05:35)
[2021-09-15] MEDS: Senna/Docusate Sodium 1 Tablet PO ×2 (05:35→16:50)
[2021-09-15] MEDS: Methocarbamol 500 MG Tablet PO ×4 (05:35→21:51)
[2021-09-15] MEDS: Menthol/Lanolin/Calamine/Znox 113 GM Tube 1 APPLIC TOPICAL ×2 (05:36→16:51)
[2021-09-15 06:26] LABS: Bedside Glucose 133 mg/dL (74-106)
[2021-09-15] MEDS: Juven (unflavored) Packet 1 PACKET PO ×2 (08:28→16:48)
[2021-09-15] MEDS: metFORMIN HCl 500 MG Tablet PO ×2 (08:28→16:49)
[2021-09-15 13:43] VITALS: BP 116/53; PULSE 91; RESP 18; TEMP 36.7; O2SAT 95
[2021-09-15] MEDS: Rivaroxaban 10 MG Tablet PO (16:49)
[2021-09-15] MEDS: Acetaminophen 500 MG Tablet 1000 MG PO (21:51)
[2021-09-15] MEDS: MELATONIN 10 MG TABLET 5 MG PO (21:52)
[2021-09-16] MEDS: Polyethylene Glycol 3350 17 GM PACKET PO (05:33)
[2021-09-16] MEDS: Methocarbamol 500 MG Tablet PO ×4 (05:33→23:27)
[2021-09-16] MEDS: Senna/Docusate Sodium 1 Tablet PO ×2 (05:33→17:28)
[2021-09-16] MEDS: Menthol/Lanolin/Calamine/Znox 113 GM Tube 1 APPLIC TOPICAL ×2 (05:34→17:28)
[2021-09-16 06:20] LABS: Bedside Glucose 118 mg/dL (74-106)
[2021-09-16] MEDS: Juven (unflavored) Packet 1 PACKET PO ×2 (08:36→17:26)
[2021-09-16] MEDS: metFORMIN HCl 500 MG Tablet PO ×2 (08:36→17:26)
[2021-09-16] MEDS: traMADol 50 MG Tablet 75 MG PO ×3 (08:40→23:35)
--- NOTE | 2021-09-16 12:56 | NURSING ---
MODERNA BOOSTER GIVEN IN PT LEFT DELT. PT TOLERATED WELL.
[2021-09-16 13:59] VITALS: BP 110/72; PULSE 84; RESP 18; TEMP 35.9; O2SAT 96
[2021-09-16] MEDS: Rivaroxaban 10 MG Tablet PO (17:27)
[2021-09-16] MEDS: Acetaminophen 500 MG Tablet 1000 MG PO (23:25)
[2021-09-16] MEDS: MELATONIN 10 MG TABLET 5 MG PO (23:26)
[2021-09-17] MEDS: Senna/Docusate Sodium 1 Tablet PO ×2 (06:28→17:02)
[2021-09-17] MEDS: Methocarbamol 500 MG Tablet PO ×4 (06:28→23:41)
[2021-09-17] MEDS: Menthol/Lanolin/Calamine/Znox 113 GM Tube 1 APPLIC TOPICAL ×2 (06:29→17:04)
[2021-09-17] MEDS: Acetaminophen 500 MG Tablet 1000 MG PO (06:33)
[2021-09-17 06:36] LABS: Bedside Glucose 107 mg/dL (74-106)
[2021-09-17] MEDS: Juven (unflavored) Packet 1 PACKET PO ×2 (07:55→17:01)
[2021-09-17] MEDS: metFORMIN HCl 500 MG Tablet PO ×2 (07:56→17:02)
[2021-09-17] MEDS: traMADol 50 MG Tablet 75 MG PO ×3 (09:56→23:23)
[2021-09-17 16:00] VITALS: BP 106/64; PULSE 81; RESP 20; TEMP 36.1; O2SAT 97
[2021-09-17] MEDS: Rivaroxaban 10 MG Tablet PO (17:02)
[2021-09-17] MEDS: MELATONIN 10 MG TABLET 5 MG PO (23:25)
[2021-09-18] MEDS: Methocarbamol 500 MG Tablet PO ×4 (05:24→23:20)
[2021-09-18] MEDS: Menthol/Lanolin/Calamine/Znox 113 GM Tube 1 APPLIC TOPICAL ×2 (05:24→17:54)
[2021-09-18 06:37] LABS: Bedside Glucose 108 mg/dL (74-106)
[2021-09-18] MEDS: metFORMIN HCl 500 MG Tablet PO ×2 (09:01→17:54)
[2021-09-18] MEDS: Juven (unflavored) Packet 1 PACKET PO ×2 (09:01→17:54)
[2021-09-18] MEDS: traMADol 50 MG Tablet 75 MG PO ×2 (09:02→23:20)
[2021-09-18 13:31] VITALS: BP 131/66; PULSE 85; RESP 16; TEMP 36.5; O2SAT 97
[2021-09-18 14:00] VITALS: PULSE 87; RESP 18; O2SAT 98
--- NOTE | 2021-09-18 15:01 | CHAPLAIN ---
Type of Pastoral Visit _x__ Initial Visit ___ Follow-up Visit ___ On-call Visit ___ General Patient Visit ___ Spiritual Assessment ___ Family Conference ___ Bereavement ___ Rapid Response ___ Code Blue ___ Other (describe below) Pastoral Care Referral From _x__ Patient ___ Family ___ Nurse ___ Physician ___ Business Services Specialist Sales ___ Ultimate Hoops Trainer ___ Other (describe below) Sacrament/Intervention _x__ Active listening ___ Anointing ___ Hoahaoism ___ Bereavement ___ Communion ___ Laura exploration ___ _x__ Life review ___ Prayer ___ Reconciliation ___ Sacrament of Sick _x__ Supportive presence ___ Wedding ___ Other (describe below) Pastoral Comments
[2021-09-18] MEDS: Rivaroxaban 10 MG Tablet PO (17:54)
[2021-09-18] MEDS: Acetaminophen 500 MG Tablet 1000 MG PO (17:58)
[2021-09-18] MEDS: MELATONIN 10 MG TABLET 5 MG PO (23:20)
[2021-09-19] MEDS: Polyethylene Glycol 3350 17 GM PACKET PO (05:34)
[2021-09-19] MEDS: Menthol/Lanolin/Calamine/Znox 113 GM Tube 1 APPLIC TOPICAL ×2 (05:35→16:57)
[2021-09-19] MEDS: Methocarbamol 500 MG Tablet PO ×4 (05:35→21:53)
[2021-09-19] MEDS: Senna/Docusate Sodium 1 Tablet PO ×2 (06:30→16:54)
[2021-09-19 06:36] LABS: Bedside Glucose 122 mg/dL (74-106)
[2021-09-19] MEDS: metFORMIN HCl 500 MG Tablet PO ×2 (08:37→16:53)
[2021-09-19] MEDS: Juven (unflavored) Packet 1 PACKET PO ×2 (09:43→16:53)
[2021-09-19 16:00] VITALS: BP 123/65; PULSE 92; RESP 17; TEMP 36.9
[2021-09-19] MEDS: Rivaroxaban 10 MG Tablet PO (16:54)
[2021-09-19] MEDS: MELATONIN 10 MG TABLET 5 MG PO (21:52)
[2021-09-19] MEDS: traMADol 50 MG Tablet 75 MG PO (21:56)
--- NOTE | 2021-09-19 22:54 | PCA ---
Patient did not wish to get washed up tonight. Per patient they received a shower earlier.
[2021-09-20] MEDS: Menthol/Lanolin/Calamine/Znox 113 GM Tube 1 APPLIC TOPICAL ×2 (05:52→17:59)
[2021-09-20] MEDS: Senna/Docusate Sodium 1 Tablet PO ×2 (05:53→17:58)
[2021-09-20] MEDS: Polyethylene Glycol 3350 17 GM PACKET PO (05:53)
[2021-09-20] MEDS: Methocarbamol 500 MG Tablet PO ×4 (05:53→22:28)
[2021-09-20 06:31] LABS: Bedside Glucose 137 mg/dL (74-106)
[2021-09-20 07:06] LABS: Absolute Neutrophil Count 2.1 X10^3/uL (2.0-7.7); Basophil# 0.03 X10^3/uL; Basophil% 0.8 % (0-1); Eosinophil# 0.24 X10^3/uL; Eosinophils% 6.3 % (0-5); Hemoglobin 12.2 g/dL (13.0-16.5); Lymphocyte % 26.2 % (19-41); Mean Corpuscular Hgb 32.9 pg (27.0-32.0); Mean Corpuscular Volume 99.7 fL (80-94); Monocyte# 0.39 X10^3/uL; Monocyte% 10.2 % (0-10); NRBC Flagged by Analyzer 0 % (0-5); Neutrophil # 2.13 X10^3/uL (2.7-7.7); Neutrophil % 55.7 % (47-70); Platelet Count 190 K/mm3 (150-450); RBC Distribution Width CV 14.3 % (11.6-14.6); RBC Distribution Width SD 52.2 fl (35.1-43.9); Red Blood Count 3.71 M/mm3 (4.6-6.2); White Blood Count 3.8 K/mm3 (4.4-11.0)
[2021-09-20 07:25] LABS: Anion Gap 5 (5-15); BUN 31 mg/dL (7-18); BUN/Creat Ratio 36.2 RATIO (10-20); Calcium,Total 8.4 mg/dL (8.5-10.1); Chloride 104 mmol/L (98-107); Creatinine, Serum 0.86 mg/dL (0.70-1.30); EST Glomerular Filtration Rate 91 mL/min (>60); Est Glom Filt Rate - Afr Amer 110 mL/min (>60); Estimated Creatinine Clearance 60.79 ml/min; Glucose 116 mg/dL (74-106); Potassium 4.4 mmol/L (3.5-5.1); Sodium Level 136 mmol/L (136-145)
[2021-09-20] MEDS: metFORMIN HCl 500 MG Tablet PO ×2 (09:03→17:57)
[2021-09-20] MEDS: Juven (unflavored) Packet 1 PACKET PO ×2 (09:03→17:58)
[2021-09-20] MEDS: traMADol 50 MG Tablet 75 MG PO ×2 (09:08→22:28)
--- NOTE | 2021-09-20 10:44 | PCM.PROGNOTE ---
Subjective Subjective Patient was seen today for follow up on right foot/ankle. He relates he has no pain, and is doing well. No complaints. No complaints of fever, chills, nausea or vomiting. He relates he will be seeing his surgeon in [place] this coming Wednesday. Objective Data Objective Data Vital Signs: Vital Signs Temp Pulse Resp BP Pulse Ox 98.5 F 92 17 123/65 H 98 09/19/21 16:00 09/19/21 16:00 09/19/21 16:00 09/19/21 16:00 09/18/21 14:00 Oxygen Delivery Method Room Air Weight: 110.875 kg Body Mass Index (BMI) 42.6 Intake & Output: Intake and Output for Last 24 Hours 09/18/21 09/19/21 09/20/21 23:59 23:59 23:59 Intake Total 600 / 600 720 / 720 240 / 240 Balance 600 / 600 720 / 720 240 / 240 Lab / Micro Data Result Diagrams: 09/20/21 06:19 09/20/21 06:19 Labs: Laboratory Results - last 24 hr 09/20/21 06:16: POC Glucose 137 H 09/20/21 06:19: WBC 3.8 L, RBC 3.71 L, Hgb 12.2 L, Hct 37.0 L, MCV 99.7 H, MCH 32.9 H, MCHC 33.0, RDW Std Deviation 52.2 H, RDW Coeff of Porter 14.3, Plt Count 190, MPV 9.0, Immature Gran % (Auto) 0.800, Neut % (Auto) 55.7, Lymph % (Auto) 26.2, Chase % (Auto) 10.2 H, Eos % (Auto) 6.3 H, Baso % (Auto) 0.8, Absolute Neuts (auto) 2.1, Absolute Lymphs (auto) 1.00, Nucleated RBC % 0 09/20/21 06:19: Sodium 136, Potassium 4.4, Chloride 104, Carbon Dioxide 27.0, Anion Gap 5, BUN 31 H, Creatinine 0.86, Estim Creat Clear Calc 60.79, Est GFR (MDRD) Af Amer 110, Est GFR (MDRD) Non-Af 91, BUN/Creatinine Ratio 36.2 H, Glucose 116 H, Calcium 8.4 L Micro: Microbiology 09/04/21 06:40 Nasal Secretion SARS-CoV-2 Antigen (Rapid) - Final 09/02/21 Unknown Nasal Secretion SARS-CoV-2 Antigen (Rapid) - Final Physical Exam Const alert and oriented x3 General Appearance: cooperative HEENT normocephalic Extremity Extremity Narrative: Calf soft and no calf tenderness bilateral. General Extremity: edema and no tenderness to palpation of joints or extremities; Negative for cyanosis Skin Skin Narrative: Dressing/splint right foot/ankle/leg is clean, dry and intact with no strikethrough, CFT < 2 seconds to all toes on the right foot and patient has no pain, he is able to move toes in all directions without problems or pain. No macerations bilateral ID spaces, no tissue break down or issues left foot and ankle, no pain to the left foot or ankle. General Skin Exam: Negative for erythema Neuro Neuro Narrative: Epicritic sensation is intact to light touch to the digits on the right lower extremity. Psych cooperative and affect normal Assessment & Plan Assessment/Plan (1) Laceration of right lower leg: (2) Edema of right lower leg: (3) Traumatic blister of right lower extremity: (4) Injury of right lower extremity: PLAN: Reviewed case. Splint/dressing right foot/ankle/leg is clean, dry and intact. There is no suspicion for infection, DVT, or complications at this time. Continue nonweightbearing status to the right lower extremity with use of assistive device. It is noted patient is on Lovenox. Patient is planning follow-up with his [facility] in [place] this coming Wednesday.
[2021-09-20 15:36] VITALS: BP 119/60; PULSE 93; RESP 18; TEMP 36.7; O2SAT 96
[2021-09-20] MEDS: Rivaroxaban 10 MG Tablet PO (17:57)
[2021-09-20 21:12] VITALS: PULSE 78; RESP 16; O2SAT 99
[2021-09-20] MEDS: MELATONIN 10 MG TABLET 5 MG PO (22:28)
[2021-09-21] MEDS: Polyethylene Glycol 3350 17 GM PACKET PO (05:54)
[2021-09-21] MEDS: Methocarbamol 500 MG Tablet PO ×3 (05:54→17:09)
[2021-09-21] MEDS: Senna/Docusate Sodium 1 Tablet PO ×2 (05:54→17:09)
[2021-09-21] MEDS: Acetaminophen 500 MG Tablet 1000 MG PO (05:57)
[2021-09-21] MEDS: traMADol 50 MG Tablet 75 MG PO ×2 (05:58→17:21)
[2021-09-21] MEDS: Menthol/Lanolin/Calamine/Znox 113 GM Tube 1 APPLIC TOPICAL ×2 (06:02→17:23)
[2021-09-21 06:20] LABS: Bedside Glucose 108 mg/dL (74-106)
[2021-09-21] MEDS: metFORMIN HCl 500 MG Tablet PO ×2 (08:14→17:07)
[2021-09-21] MEDS: Juven (unflavored) Packet 1 PACKET PO ×2 (08:15→17:24)
[2021-09-21 10:00] VITALS: RESP 18; O2SAT 95
[2021-09-21] MEDS: Hydrocortisone 2.5% Crm 1 APPLIC TOPICAL (14:30)
[2021-09-21 16:00] VITALS: BP 114/71; PULSE 93; RESP 21; TEMP 36.8; O2SAT 96
[2021-09-21] MEDS: Rivaroxaban 10 MG Tablet PO (17:22)
[2021-09-22] MEDS: traMADol 50 MG Tablet 75 MG PO ×3 (00:08→23:56)
[2021-09-22] MEDS: Acetaminophen 500 MG Tablet 1000 MG PO ×2 (00:08→23:55)
[2021-09-22] MEDS: Methocarbamol 500 MG Tablet PO ×5 (00:09→23:54)
[2021-09-22] MEDS: MELATONIN 10 MG TABLET 5 MG PO ×2 (00:10→23:55)
[2021-09-22] MEDS: Senna/Docusate Sodium 1 Tablet PO ×2 (05:43→17:52)
[2021-09-22] MEDS: Menthol/Lanolin/Calamine/Znox 113 GM Tube 1 APPLIC TOPICAL ×2 (05:43→17:57)
[2021-09-22] MEDS: Polyethylene Glycol 3350 17 GM PACKET PO (05:43)
[2021-09-22 06:31] LABS: Bedside Glucose 131 mg/dL (74-106)
[2021-09-22] MEDS: metFORMIN HCl 500 MG Tablet PO ×2 (07:59→17:51)
[2021-09-22] MEDS: Juven (unflavored) Packet 1 PACKET PO ×2 (07:59→17:51)
[2021-09-22 14:02] VITALS: BP 129/70; PULSE 70; RESP 18; TEMP 36.4; O2SAT 98
[2021-09-22] MEDS: Rivaroxaban 10 MG Tablet PO (17:52)
[2021-09-23] MEDS: Methocarbamol 500 MG Tablet PO ×4 (06:18→22:38)
[2021-09-23] MEDS: Menthol/Lanolin/Calamine/Znox 113 GM Tube 1 APPLIC TOPICAL (06:19)
[2021-09-23 06:26] LABS: Bedside Glucose 114 mg/dL (74-106)
[2021-09-23] MEDS: metFORMIN HCl 500 MG Tablet PO ×2 (07:51→17:41)
[2021-09-23] MEDS: Juven (unflavored) Packet 1 PACKET PO ×2 (07:51→17:41)
[2021-09-23 09:40] VITALS: PULSE 94; RESP 18; O2SAT 94
[2021-09-23] MEDS: traMADol 50 MG Tablet 75 MG PO ×2 (11:03→18:59)
--- NOTE | 2021-09-23 11:19 | NURSING ---
TRANSPORT HERE TO TAKE PT TO APPOINTMENT IN [place] BY WHEEL CHAIR.
[2021-09-23 16:00] VITALS: BP 133/73; PULSE 80; RESP 16; TEMP 36.6; O2SAT 98
--- NOTE | 2021-09-23 17:39 | NURSING ---
PT RETURNED BY WHEEL CHAIR FROM [facility] APPOINTMENT.
[2021-09-23] MEDS: Senna/Docusate Sodium 1 Tablet PO (17:41)
[2021-09-23] MEDS: Rivaroxaban 10 MG Tablet PO (17:41)
[2021-09-23] MEDS: MELATONIN 10 MG TABLET 5 MG PO (22:37)
[2021-09-23] MEDS: Acetaminophen 500 MG Tablet 1000 MG PO (22:38)
[2021-09-24] MEDS: traMADol 50 MG Tablet 75 MG PO ×3 (02:06→23:52)
[2021-09-24 06:16] LABS: Bedside Glucose 118 mg/dL (74-106)
[2021-09-24] MEDS: Menthol/Lanolin/Calamine/Znox 113 GM Tube 1 APPLIC TOPICAL ×2 (06:33→17:40)
[2021-09-24] MEDS: Senna/Docusate Sodium 1 Tablet PO ×2 (06:33→17:31)
[2021-09-24] MEDS: Methocarbamol 500 MG Tablet PO ×4 (06:33→23:52)
[2021-09-24] MEDS: Polyethylene Glycol 3350 17 GM PACKET PO (06:33)
[2021-09-24] MEDS: metFORMIN HCl 500 MG Tablet PO ×2 (08:20→17:29)
[2021-09-24] MEDS: Juven (unflavored) Packet 1 PACKET PO ×2 (08:20→17:29)
[2021-09-24] MEDS: Ergocalciferol 1.25 MG (50, 000 UNIT) Capsule PO (11:37)
[2021-09-24 13:34] VITALS: BP 125/76; PULSE 89; RESP 18; TEMP 36.8; O2SAT 98
--- NOTE | 2021-09-24 13:43 | NURSING ---
Addendum entered by Ashlee Francis 09/24/21 15:21: Fax received and sent to Dr. James Original Note: [facility] called and updated on request for medical records from 09/23/21 appointment to be faxed to TCU
--- NOTE | 2021-09-24 15:38 | CHAPLAIN ---
Type of Pastoral Visit ___ Initial Visit _x__ Follow-up Visit ___ On-call Visit ___ General Patient Visit ___ Spiritual Assessment ___ Family Conference ___ Bereavement ___ Rapid Response ___ Code Blue ___ Other (describe below) Pastoral Care Referral From _x__ Patient _x__ Family ___ Nurse ___ Physician ___ Superintendent Service ___ Hand Plate Stacker ___ Other (describe below) Sacrament/Intervention _x__ Active listening ___ Anointing ___ Cheondoism ___ Bereavement ___ Communion ___ Laura exploration ___ ___ Life review ___ Prayer ___ Reconciliation ___ Sacrament of Sick ___ Supportive presence ___ Wedding ___ Other (describe below) Pastoral Comments sat down beside patient and his spouse in activity area; pt gives update from his doctor visit with some good news and bad news; pt speaks of accepting it with it is what it is and I'm okay; pt speaks kindly to others in the room and is showing positivity in words and actions;
[2021-09-24] MEDS: Rivaroxaban 10 MG Tablet PO (17:30)
[2021-09-24] MEDS: MELATONIN 10 MG TABLET 5 MG PO (21:53)
[2021-09-24] MEDS: Acetaminophen 500 MG Tablet 1000 MG PO (21:57)
[2021-09-24 22:00] VITALS: PULSE 94; O2SAT 97
[2021-09-25] MEDS: Polyethylene Glycol 3350 17 GM PACKET PO (05:52)
[2021-09-25] MEDS: Methocarbamol 500 MG Tablet PO ×3 (05:52→17:08)
[2021-09-25] MEDS: Senna/Docusate Sodium 1 Tablet PO ×2 (05:52→17:08)
[2021-09-25 06:21] LABS: Bedside Glucose 121 mg/dL (74-106)
[2021-09-25] MEDS: Menthol/Lanolin/Calamine/Znox 113 GM Tube 1 APPLIC TOPICAL ×2 (07:18→17:07)
[2021-09-25] MEDS: metFORMIN HCl 500 MG Tablet PO ×2 (07:18→17:07)
[2021-09-25] MEDS: Juven (unflavored) Packet 1 PACKET PO ×2 (07:19→17:07)
[2021-09-25 08:25] VITALS: PULSE 68; RESP 18
[2021-09-25 15:00] VITALS: BP 131/72; PULSE 98; RESP 16; TEMP 36.9; O2SAT 99
[2021-09-25] MEDS: Rivaroxaban 10 MG Tablet PO (17:08)
[2021-09-25] MEDS: MELATONIN 10 MG TABLET 5 MG PO (19:56)
[2021-09-25] MEDS: traMADol 50 MG Tablet 75 MG PO (19:57)
[2021-09-26] MEDS: Methocarbamol 500 MG Tablet PO ×5 (00:02→21:41)
[2021-09-26] MEDS: Senna/Docusate Sodium 1 Tablet PO ×2 (06:20→18:01)
[2021-09-26] MEDS: traMADol 50 MG Tablet 75 MG PO ×2 (06:21→18:12)
[2021-09-26] MEDS: Menthol/Lanolin/Calamine/Znox 113 GM Tube 1 APPLIC TOPICAL (06:22)
[2021-09-26 06:26] LABS: Bedside Glucose 101 mg/dL (74-106)
[2021-09-26] MEDS: metFORMIN HCl 500 MG Tablet PO ×2 (08:04→18:00)
[2021-09-26] MEDS: Juven (unflavored) Packet 1 PACKET PO ×2 (08:04→18:00)
--- NOTE | 2021-09-26 10:52 | PCM.PROGNOTE ---
Subjective Subjective Patient was seen today for follow up on right foot/ankle. He relates he is doing well. No complaints. No complaints of fever, chills, nausea or vomiting. He relates he was seen by his surgeon in [place] This past Wednesday and a new right lower extremity cast was placed. His pain is controlled. Medical records were also reviewed from [facility]. Objective Data Objective Data Vital Signs: Vital Signs Temp Pulse Resp BP Pulse Ox 98.5 F 98 16 131/72 H 99 09/25/21 15:00 09/25/21 15:00 09/25/21 15:00 09/25/21 15:00 09/25/21 15:00 Oxygen Delivery Method Room Air Weight: 112.746 kg Body Mass Index (BMI) 42.6 Intake & Output: Intake and Output for Last 24 Hours 09/24/21 09/25/21 09/26/21 23:59 23:59 23:59 Intake Total 780 / 780 480 / 480 360 / 360 Output Total 700 / 700 150 / 150 100 / 100 Balance 80 / 80 330 / 330 260 / 260 Lab / Micro Data Result Diagrams: 09/20/21 06:19 09/20/21 06:19 Labs: Laboratory Results - last 24 hr 09/26/21 06:10: POC Glucose 101 Micro: Microbiology 09/04/21 06:40 Nasal Secretion SARS-CoV-2 Antigen (Rapid) - Final 09/02/21 Unknown Nasal Secretion SARS-CoV-2 Antigen (Rapid) - Final Physical Exam Const alert and oriented x3 General Appearance: cooperative Extremity Extremity Narrative: Calf soft and no calf tenderness bilateral. Skin Skin Narrative: shortleg right lower extremity fiberglass cast is clean, dry and intact with no strikethrough. rectus position is noted Neuro Neuro Narrative: Epicritic sensation is intact to light touch to the digits on the right lower extremity. Psych cooperative and affect normal Assessment & Plan Assessment/Plan (1) Laceration of right lower leg: (2) Injury of right lower extremity: (3) Dislocation of subtalar joint: PLAN: Reviewed case including medical records from outside facility. He saw his surgeon who addressed his acute open subtalar joint dislocation and limb laceration at the onset of injury. It was recommended he remain in the cast for an additional 3 to 4 weeks and then consider transition to cam walker boot. It was offered for him to follow-up with a local physician for wound care and his subtalar joint injury. Additional surgeries are not recommended. There is also noted he has a right upper extremity injury and has a cast in place as well. He plans to follow-up with orthopedics. There is no suspicion for infection, DVT, or complications at this time. Continue nonweightbearing status to the right lower extremity with use of assistive device with short leg cast in place. I recommend removing the cast to perform a wound check and wound care in 2 weeks. I anticipate he will be able to transition from a cast to a pneumatic cam walker in approximately 3 to 4 weeks. The patient is amendable to this plan. Repeat x-rays will be obtained at that time as he would like to follow-up locally. It is noted patient is on rivaroxaban and vitamin D supplementation. Medical management per Dr. Lobato is noted and appreciated. Please call with questions. Sallie James DPM, [facility] [phone]
[2021-09-26 15:23] VITALS: BP 117/67; PULSE 96; RESP 18; TEMP 36.4; O2SAT 97
[2021-09-26] MEDS: Rivaroxaban 10 MG Tablet PO (18:00)
[2021-09-26] MEDS: MELATONIN 10 MG TABLET 5 MG PO (21:40)
[2021-09-26 22:10] VITALS: PULSE 75; RESP 16; O2SAT 98
[2021-09-27] MEDS: traMADol 50 MG Tablet 75 MG PO ×3 (00:59→23:50)
[2021-09-27] MEDS: Polyethylene Glycol 3350 17 GM PACKET PO (05:34)
[2021-09-27] MEDS: Menthol/Lanolin/Calamine/Znox 113 GM Tube 1 APPLIC TOPICAL ×2 (05:34→17:33)
[2021-09-27] MEDS: Methocarbamol 500 MG Tablet PO ×4 (05:34→23:51)
[2021-09-27] MEDS: Senna/Docusate Sodium 1 Tablet PO ×2 (05:35→17:26)
[2021-09-27 06:21] LABS: Bedside Glucose 122 mg/dL (74-106)
[2021-09-27 06:27] LABS: Absolute Lymphocyte Count 0.96 X10^3/uL (0.83-4.51); Absolute Neutrophil Count 2.2 X10^3/uL (2.0-7.7); Basophil# 0.01 X10^3/uL; Basophil% 0.3 % (0-1); Eosinophil# 0.19 X10^3/uL; Hematocrit 37.9 % (40-54); Hemoglobin 12.5 g/dL (13.0-16.5); Lymphocyte # 0.96 X10^3/ul (0.83-4.51); Lymphocyte % 25.3 % (19-41); Mean Corpuscular Hgb 33.2 pg (27.0-32.0); Mean Corpuscular Volume 100.5 fL (80-94); Mean Platelet Vol. 8.9 fl (6.2-12.0); Monocyte# 0.42 X10^3/uL; Monocyte% 11.1 % (0-10); NRBC Flagged by Analyzer 0 % (0-5); Neutrophil % 57.8 % (47-70); Platelet Count 178 K/mm3 (150-450); RBC Distribution Width CV 14.1 % (11.6-14.6); RBC Distribution Width SD 52.3 fl (35.1-43.9); Red Blood Count 3.77 M/mm3 (4.6-6.2); White Blood Count 3.8 K/mm3 (4.4-11.0)
[2021-09-27 06:41] LABS: Anion Gap 5 (5-15); BUN 29 mg/dL (7-18); BUN/Creat Ratio 37.4 RATIO (10-20); Calcium,Total 8.7 mg/dL (8.5-10.1); Chloride 106 mmol/L (98-107); Creatinine, Serum 0.78 mg/dL (0.70-1.30); EST Glomerular Filtration Rate 102 mL/min (>60); Est Glom Filt Rate - Afr Amer 124 mL/min (>60); Estimated Creatinine Clearance 52.28 ml/min; Glucose 111 mg/dL (74-106); Potassium 4.2 mmol/L (3.5-5.1); Sodium Level 138 mmol/L (136-145)
[2021-09-27] MEDS: Juven (unflavored) Packet 1 PACKET PO ×2 (08:53→17:25)
[2021-09-27] MEDS: metFORMIN HCl 500 MG Tablet PO ×2 (08:54→17:25)
[2021-09-27 10:00] VITALS: PULSE 76; RESP 16
[2021-09-27 14:32] VITALS: BP 120/63; PULSE 103; RESP 18; TEMP 36.3; O2SAT 98
[2021-09-27] MEDS: Rivaroxaban 10 MG Tablet PO (17:25)
[2021-09-27] MEDS: Acetaminophen 500 MG Tablet 1000 MG PO (23:48)
[2021-09-27] MEDS: MELATONIN 10 MG TABLET 5 MG PO (23:52)
--- NOTE | 2021-09-28 00:08 | NURSING ---
Patient requesting PRN medications at this time for 8/10 pain. Given per nursing order. Encouraged patient to get into bed, as he was in his recliner. He declined, education provided. Patient asked this nurse if she could look at his leg. Redness and warmth noted. RN informed and in to assess patient.
[2021-09-28 00:45] VITALS: BP 131/76; PULSE 96; TEMP 36.4; O2SAT 98
--- NOTE | 2021-09-28 00:47 | NURSING ---
Assessed LLE d/t concern per SURGICAL PRODUCT SALES CONSULTANT. BLE elevated in recliner chair. LLE warm to touch. Redness noted from ankle up 2/3 of lower leg below the knee. No red streaks or wounds noted. Few areas of dry, scaly skin. Denies any pain, numbness, or tingling to the affected area. In no acute distress. Pedal and posterior tibial pulses +2. Toes mobile. Cap refill less than 3 seconds. Vitals obtained and recorded. Afebrile. Denies discoloration is acute. One additional pillow placed under each leg and pt notes improved comfort. Urinal emptied for 150 ml straw colored, clear. Call light w/ in reach. Will continue to monitor.
[2021-09-28] MEDS: Senna/Docusate Sodium 1 Tablet PO ×2 (05:42→17:08)
[2021-09-28] MEDS: Polyethylene Glycol 3350 17 GM PACKET PO (05:42)
[2021-09-28] MEDS: Methocarbamol 500 MG Tablet PO ×4 (05:42→21:48)
[2021-09-28] MEDS: Acetaminophen 500 MG Tablet 1000 MG PO ×3 (05:49→19:32)
[2021-09-28] MEDS: traMADol 50 MG Tablet 75 MG PO ×3 (05:50→19:31)
--- NOTE | 2021-09-28 06:08 | NURSING ---
Patient refusing to have bottom washed and kristen applied this morning. States that he will just do it later. Education provided and patient voiced understanding, still refusing.
[2021-09-28 06:25] LABS: Bedside Glucose 110 mg/dL (74-106)
[2021-09-28] MEDS: metFORMIN HCl 500 MG Tablet PO ×2 (08:16→17:08)
[2021-09-28] MEDS: Juven (unflavored) Packet 1 PACKET PO ×2 (08:16→17:07)
[2021-09-28 10:00] VITALS: RESP 18
[2021-09-28 13:22] VITALS: BP 128/72; PULSE 78; RESP 18; TEMP 36.1; O2SAT 97
[2021-09-28] MEDS: Rivaroxaban 10 MG Tablet PO (17:08)
[2021-09-28] MEDS: Menthol/Lanolin/Calamine/Znox 113 GM Tube 1 APPLIC TOPICAL (17:09)
[2021-09-28] MEDS: MELATONIN 10 MG TABLET 5 MG PO (21:47)
[2021-09-29] MEDS: Senna/Docusate Sodium 1 Tablet PO ×2 (05:17→16:30)
[2021-09-29] MEDS: Methocarbamol 500 MG Tablet PO ×4 (05:17→22:46)
[2021-09-29] MEDS: Polyethylene Glycol 3350 17 GM PACKET PO (05:17)
[2021-09-29] MEDS: Menthol/Lanolin/Calamine/Znox 113 GM Tube 1 APPLIC TOPICAL ×2 (05:19→16:30)
[2021-09-29] MEDS: traMADol 50 MG Tablet 75 MG PO ×3 (05:22→21:16)
[2021-09-29 06:21] LABS: Bedside Glucose 110 mg/dL (74-106)
[2021-09-29] MEDS: metFORMIN HCl 500 MG Tablet PO ×2 (07:31→16:29)
[2021-09-29] MEDS: Juven (unflavored) Packet 1 PACKET PO ×2 (07:31→16:25)
[2021-09-29] MEDS: Acetaminophen 500 MG Tablet 1000 MG PO ×3 (07:36→22:43)
[2021-09-29 15:53] VITALS: BP 110/63; PULSE 91; RESP 16; TEMP 36.3; O2SAT 97
[2021-09-29] MEDS: Rivaroxaban 10 MG Tablet PO (16:30)
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
[2021-09-29] MEDS: MELATONIN 10 MG TABLET 5 MG PO (22:45)
[2021-09-30 06:20] LABS: Bedside Glucose 107 mg/dL (74-106)
[2021-09-30] MEDS: traMADol 50 MG Tablet 75 MG PO ×3 (06:24→19:34)
[2021-09-30] MEDS: Polyethylene Glycol 3350 17 GM PACKET PO (06:25)
[2021-09-30] MEDS: Senna/Docusate Sodium 1 Tablet PO ×2 (06:26→18:10)
[2021-09-30] MEDS: Methocarbamol 500 MG Tablet PO ×3 (06:26→18:09)
[2021-09-30] MEDS: Menthol/Lanolin/Calamine/Znox 113 GM Tube 1 APPLIC TOPICAL ×2 (06:28→18:18)
[2021-09-30] MEDS: metFORMIN HCl 500 MG Tablet PO ×2 (07:48→18:09)
[2021-09-30] MEDS: Juven (unflavored) Packet 1 PACKET PO ×2 (07:48→18:09)
[2021-09-30 15:43] VITALS: BP 124/70; PULSE 85; RESP 16; TEMP 36.2; O2SAT 95
[2021-09-30 19:30] VITALS: BP 123/73; PULSE 78; RESP 18; TEMP 36.3; O2SAT 97
[2021-09-30] MEDS: Acetaminophen 500 MG Tablet 1000 MG PO (19:36)
[2021-09-30] MEDS: MELATONIN 10 MG TABLET 5 MG PO (19:48)
[2021-10-01] MEDS: Methocarbamol 500 MG Tablet PO ×5 (00:21→23:34)
[2021-10-01 06:20] LABS: Bedside Glucose 102 mg/dL (74-106)
[2021-10-01] MEDS: Acetaminophen 500 MG Tablet 1000 MG PO ×2 (06:31→23:34)
[2021-10-01] MEDS: Polyethylene Glycol 3350 17 GM PACKET PO (06:31)
[2021-10-01] MEDS: Menthol/Lanolin/Calamine/Znox 113 GM Tube 1 APPLIC TOPICAL ×2 (06:32→17:08)
[2021-10-01 06:46] VITALS: BP 127/78; PULSE 103; RESP 18; TEMP 36.4; O2SAT 95
[2021-10-01] MEDS: Juven (unflavored) Packet 1 PACKET PO ×2 (08:15→17:07)
[2021-10-01] MEDS: metFORMIN HCl 500 MG Tablet PO ×2 (08:17→17:07)
[2021-10-01] MEDS: Ergocalciferol 1.25 MG (50, 000 UNIT) Capsule PO (08:19)
[2021-10-01] MEDS: traMADol 50 MG Tablet 75 MG PO ×3 (08:21→23:33)
[2021-10-01 10:00] VITALS: PULSE 64; RESP 18; O2SAT 96
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
[2021-10-01 14:32] VITALS: BP 137/76; PULSE 92; RESP 14; TEMP 36.8; O2SAT 98
--- NOTE | 2021-10-01 15:07 | CHAPLAIN ---
Type of Pastoral Visit ___ Initial Visit ___ Follow-up Visit ___ On-call Visit _x__ General Patient Visit ___ Spiritual Assessment ___ Family Conference ___ Bereavement ___ Rapid Response ___ Code Blue ___ Other (describe below) Pastoral Care Referral From _x__ Patient _x__ Family ___ Nurse ___ Physician ___ Food Mixer ___ Building Performance Consultant ___ Other (describe below) Sacrament/Intervention _x__ Active listening ___ Anointing ___ Faith ___ Bereavement ___ Communion ___ Laura exploration ___ ___ Life review _x__ Prayer ___ Reconciliation ___ Sacrament of Sick _x__ Supportive presence ___ Wedding ___ Other (describe below) Pastoral Comments was sitting with this patient in the activity room and having casual conversation when his spouse walked in and began to cry; walked with spouse to give comfort and she told of financial worries about medical bills; patient also joined in at this time; gave calming presence and listening ear; affirmed patient and spouse on their decisions; offered prayer in support of direction as requested by patient and spouse; laura is an important part of this couple's life and marriage; was supportive of their laura and practices
[2021-10-01] MEDS: Senna/Docusate Sodium 1 Tablet PO (17:07)
[2021-10-01] MEDS: MELATONIN 10 MG TABLET 5 MG PO (23:34)
[2021-10-02] MEDS: Acetaminophen 500 MG Tablet 1000 MG PO ×2 (05:49→23:01)
[2021-10-02] MEDS: Methocarbamol 500 MG Tablet PO ×4 (05:50→23:01)
[2021-10-02] MEDS: Senna/Docusate Sodium 1 Tablet PO ×2 (05:50→17:32)
[2021-10-02 06:21] LABS: Bedside Glucose 104 mg/dL (74-106)
[2021-10-02] MEDS: metFORMIN HCl 500 MG Tablet PO ×2 (08:24→17:32)
[2021-10-02] MEDS: Juven (unflavored) Packet 1 PACKET PO ×2 (08:24→17:33)
[2021-10-02] MEDS: traMADol 50 MG Tablet 75 MG PO ×2 (08:30→18:52)
--- NOTE | 2021-10-02 11:04 | NURSING ---
Pt continues to c/o pain to nicole buttocks but is refusing to turn/reposition, or try other interventions at this time.
[2021-10-02 13:42] VITALS: BP 117/76; PULSE 79; RESP 18; TEMP 36.3; O2SAT 96
[2021-10-02] MEDS: Menthol/Lanolin/Calamine/Znox 113 GM Tube 1 APPLIC TOPICAL (17:36)
--- NOTE | 2021-10-02 20:47 | NURSING ---
This nurse responded to patient's call light. Patient with c/o burning to his bottom. Patient requesting PRN Tramadol, which he is not due for at this time. Patient declines to get into bed, stating that he has not slept in a bed in 40 years. Patient agreeable to be repositioned in his chair, with a pillow under one side to alleviate pressure on his bottom. Patient states relief from this and thanks this nurse. Call light within reach.
[2021-10-02] MEDS: MELATONIN 10 MG TABLET 5 MG PO (23:01)
[2021-10-03] MEDS: Methocarbamol 500 MG Tablet PO ×4 (05:00→23:08)
[2021-10-03] MEDS: Polyethylene Glycol 3350 17 GM PACKET PO (05:01)
[2021-10-03] MEDS: Senna/Docusate Sodium 1 Tablet PO ×2 (05:01→17:24)
[2021-10-03] MEDS: traMADol 50 MG Tablet 75 MG PO ×3 (05:01→19:52)
--- NOTE | 2021-10-03 05:40 | NURSING ---
Patient c/o pain in buttocks. Sleeps in chair, refused to try to reposition. PRN tramadol administered as ordered for pain. Will continue to monitor.
[2021-10-03 06:15] LABS: Bedside Glucose 110 mg/dL (74-106)
[2021-10-03] MEDS: metFORMIN HCl 500 MG Tablet PO ×2 (08:17→17:23)
[2021-10-03] MEDS: Juven (unflavored) Packet 1 PACKET PO ×2 (08:17→17:23)
[2021-10-03 08:30] VITALS: PULSE 83; RESP 18; O2SAT 97
--- NOTE | 2021-10-03 13:04 | PN_ITS ---
Subjective Subjective 81-year-old male seen for follow-up of right foot/ankle injury. He is sitting in his wheelchair reading the paper. He denies any constitutional symptoms or calf pain. He states he is doing well and has no complaints. He states he will be returning to [facility] on October 23, 2021 for a postoperative appoin tment for his foot and ankle and right wrist. Objective Data Objective Data Vital Signs: Vital Signs Temp Pulse Resp BP Pulse Ox 97.3 F L 83 18 117/76 97 10/02/21 13:42 10/03/21 08:30 10/03/21 08:30 10/02/21 13:42 10/03/21 08:30 Oxygen Delivery Method Room Air Weight: 112.536 kg Body Mass Index (BMI) 42.6 Intake & Output: Intake and Output for Last 24 Hours 10/01/21 10/02/21 10/03/21 23:59 23:59 23:59 Intake Total 760 / 760 720 / 720 582 / 582 Output Total 300 / 300 200 / 200 Balance 460 / 460 720 / 720 382 / 382 Lab / Micro Data Result Diagrams: 09/27/21 06:07 09/27/21 06:07 Labs: Laboratory Results - last 24 hr 10/03/21 06:04: POC Glucose 110 H Micro: Microbiology 09/04/21 06:40 Nasal Secretion SARS-CoV-2 Antigen (Rapid) - Final 09/02/21 Unknown Nasal Secretion SARS-CoV-2 Antigen (Rapid) - Final Physical Exam HEENT normocephalic Extremity Extremity Narrative: Calf soft and no calf tenderness bilateral. General Extremity: edema and no tenderness to palpation of joints or extremities; Negative for cyanosis Skin Skin Narrative: shortleg right lower extremity fiberglass cast is clean, dry and intact with no strikethrough. rectus position is noted General Skin Exam: Negative for erythema Neuro Neuro Narrative: Epicritic sensation is intact to light touch to the digits on the right lower extremity. Assessment & Plan Assessment/Plan (1) Laceration of right lower leg: (2) Injury of right lower extremity: (3) Dislocation of subtalar joint: PLAN: Reviewed case including medical records from outside facility. He saw his surgeon who addressed his acute open subtalar joint dislocation and limb laceration at the onset of injury. It was recommended he remain in the cast for an additional 2 to 3 weeks and then consider transition to cam walker boot. He states he has another appointment scheduled at [facility] in [place] on October 23, 2021. However, he would like to follow-up with a local physician for wound care and his subtalar joint injury. Additional surgeries are not recommended. There is also noted he has a right upper extremity injury and has a cast in place as well. He plans to follow-up with orthopedics. There is no suspicion for infection, DVT, or complications at this time. Continue nonweightbearing status to the right lower extremity with use of assistive device with short leg cast in place. I recommend removing the cast to perform a wound check and wound care next week. I anticipate he will be able to transition from a cast to a pneumatic cam walker in approximately 2 to 3 weeks. The patient is amendable to this plan. Repeat x-rays will be obtained at that time as he would like to follow-up locally. It is noted patient is on rivaroxaban and vitamin D supplementation. Medical management per Dr. Lobato is noted and appreciated. Please call with questions. Terrance Cantrell Jr, [facility] [phone]
[2021-10-03 14:06] VITALS: BP 143/76; PULSE 86; RESP 18; TEMP 35.9; O2SAT 97
[2021-10-03] MEDS: Menthol/Lanolin/Calamine/Znox 113 GM Tube 1 APPLIC TOPICAL (17:24)
[2021-10-03] MEDS: Acetaminophen 500 MG Tablet 1000 MG PO (17:26)
[2021-10-03] MEDS: MELATONIN 10 MG TABLET 5 MG PO (23:08)
[2021-10-04] MEDS: traMADol 50 MG Tablet 75 MG PO ×4 (05:02→23:22)
[2021-10-04] MEDS: Methocarbamol 500 MG Tablet PO ×4 (05:02→23:26)
[2021-10-04] MEDS: Acetaminophen 500 MG Tablet 1000 MG PO (05:02)
[2021-10-04] MEDS: Senna/Docusate Sodium 1 Tablet PO ×2 (05:02→17:11)
[2021-10-04] MEDS: Polyethylene Glycol 3350 17 GM PACKET PO (05:07)
[2021-10-04 05:37] LABS: Absolute Lymphocyte Count 0.97 X10^3/uL (0.83-4.51); Absolute Neutrophil Count 2.1 X10^3/uL (2.0-7.7); Basophil# 0.01 X10^3/uL; Basophil% 0.3 % (0-1); Eosinophils% 5.5 % (0-5); Hematocrit 36.9 % (40-54); Hemoglobin 12.2 g/dL (13.0-16.5); Lymphocyte # 0.97 X10^3/ul (0.83-4.51); Lymphocyte % 26.5 % (19-41); Mean Corp Hgb Conc 33.1 g/dL (32-36); Mean Corpuscular Hgb 33.1 pg (27.0-32.0); Mean Platelet Vol. 8.9 fl (6.2-12.0); Monocyte# 0.35 X10^3/uL; Monocyte% 9.6 % (0-10); NRBC Flagged by Analyzer 0 % (0-5); Neutrophil # 2.11 X10^3/uL (2.7-7.7); Neutrophil % 57.6 % (47-70); Platelet Count 154 K/mm3 (150-450); RBC Distribution Width CV 13.9 % (11.6-14.6); RBC Distribution Width SD 51.1 fl (35.1-43.9); Red Blood Count 3.69 M/mm3 (4.6-6.2); White Blood Count 3.7 K/mm3 (4.4-11.0)
[2021-10-04 05:59] LABS: Anion Gap 5 (5-15); BUN 30 mg/dL (7-18); BUN/Creat Ratio 38.7 RATIO (10-20); Calcium,Total 8.8 mg/dL (8.5-10.1); Chloride 106 mmol/L (98-107); Creatinine, Serum 0.78 mg/dL (0.70-1.30); EST Glomerular Filtration Rate 102 mL/min (>60); Est Glom Filt Rate - Afr Amer 124 mL/min (>60); Estimated Creatinine Clearance 52.28 ml/min; Glucose 108 mg/dL (74-106); Potassium 4.4 mmol/L (3.5-5.1); Sodium Level 138 mmol/L (136-145)
[2021-10-04 06:21] LABS: Bedside Glucose 111 mg/dL (74-106)
[2021-10-04] MEDS: Juven (unflavored) Packet 1 PACKET PO ×2 (08:09→17:10)
[2021-10-04] MEDS: metFORMIN HCl 500 MG Tablet PO ×2 (08:10→17:10)
[2021-10-04 17:26] VITALS: BP 133/82; PULSE 92; RESP 18; TEMP 36.8; O2SAT 96
[2021-10-04] MEDS: Menthol/Lanolin/Calamine/Znox 113 GM Tube 1 APPLIC TOPICAL (17:38)
[2021-10-04 21:11] VITALS: RESP 18
[2021-10-04] MEDS: MELATONIN 10 MG TABLET 5 MG PO (23:25)
[2021-10-05] MEDS: Polyethylene Glycol 3350 17 GM PACKET PO (05:49)
[2021-10-05] MEDS: traMADol 50 MG Tablet 75 MG PO ×3 (05:51→23:25)
[2021-10-05] MEDS: Senna/Docusate Sodium 1 Tablet PO ×2 (05:52→17:16)
[2021-10-05] MEDS: Acetaminophen 500 MG Tablet 1000 MG PO ×3 (05:52→23:25)
[2021-10-05] MEDS: Menthol/Lanolin/Calamine/Znox 113 GM Tube 1 APPLIC TOPICAL ×2 (05:53→17:15)
[2021-10-05] MEDS: Methocarbamol 500 MG Tablet PO ×4 (05:53→23:24)
[2021-10-05 06:20] LABS: Bedside Glucose 118 mg/dL (74-106)
[2021-10-05] MEDS: Juven (unflavored) Packet 1 PACKET PO ×2 (07:54→17:16)
[2021-10-05] MEDS: metFORMIN HCl 500 MG Tablet PO ×2 (07:55→17:16)
[2021-10-05 09:15] VITALS: PULSE 88; RESP 18; O2SAT 96
[2021-10-05] MEDS: Nystatin Powder 15gm Bottle 1 APPLIC TOPICAL ×2 (09:42→21:32)
[2021-10-05] MEDS: Hydrocortisone 2.5% Crm 1 APPLIC TOPICAL (09:45)
[2021-10-05 16:00] VITALS: BP 132/84; PULSE 70; RESP 18; TEMP 36.9; O2SAT 96
[2021-10-05] MEDS: MELATONIN 10 MG TABLET 5 MG PO (21:31)
[2021-10-06] MEDS: Polyethylene Glycol 3350 17 GM PACKET PO (06:00)
[2021-10-06] MEDS: traMADol 50 MG Tablet 75 MG PO ×2 (06:01→18:01)
[2021-10-06] MEDS: Acetaminophen 500 MG Tablet 1000 MG PO ×2 (06:02→18:01)
[2021-10-06] MEDS: Methocarbamol 500 MG Tablet PO ×3 (06:02→17:57)
[2021-10-06] MEDS: Senna/Docusate Sodium 1 Tablet PO ×2 (06:03→17:57)
[2021-10-06] MEDS: Menthol/Lanolin/Calamine/Znox 113 GM Tube 1 APPLIC TOPICAL ×2 (06:04→18:42)
[2021-10-06] MEDS: Nystatin Powder 15gm Bottle 1 APPLIC TOPICAL ×2 (06:04→21:20)
[2021-10-06 06:20] LABS: Bedside Glucose 111 mg/dL (74-106)
[2021-10-06] MEDS: metFORMIN HCl 500 MG Tablet PO ×2 (08:27→17:57)
[2021-10-06] MEDS: Juven (unflavored) Packet 1 PACKET PO ×2 (08:27→17:57)
[2021-10-06 15:53] VITALS: BP 125/72; PULSE 102; RESP 16; TEMP 36.8; O2SAT 96
[2021-10-06] MEDS: MELATONIN 10 MG TABLET 5 MG PO (21:19)
[2021-10-06 22:49] VITALS: PULSE 87; RESP 16; O2SAT 97
[2021-10-07] MEDS: Methocarbamol 500 MG Tablet PO ×5 (00:09→23:18)
[2021-10-07] MEDS: Acetaminophen 500 MG Tablet 1000 MG PO ×4 (00:09→23:19)
[2021-10-07] MEDS: Polyethylene Glycol 3350 17 GM PACKET PO (05:27)
[2021-10-07] MEDS: Menthol/Lanolin/Calamine/Znox 113 GM Tube 1 APPLIC TOPICAL ×2 (05:27→21:26)
[2021-10-07] MEDS: Nystatin Powder 15gm Bottle 1 APPLIC TOPICAL ×2 (05:28→21:27)
[2021-10-07] MEDS: Senna/Docusate Sodium 1 Tablet PO ×2 (05:28→17:12)
[2021-10-07 06:25] LABS: Bedside Glucose 117 mg/dL (74-106)
[2021-10-07] MEDS: metFORMIN HCl 500 MG Tablet PO ×2 (09:14→17:12)
[2021-10-07] MEDS: Juven (unflavored) Packet 1 PACKET PO ×2 (09:15→17:12)
[2021-10-07] MEDS: traMADol 50 MG Tablet 75 MG PO ×3 (09:15→23:19)
--- NOTE | 2021-10-07 10:50 | NURSING ---
TRANSPORT SET UP FOR PT ON 10/23/21 FOR 3 APPOINTMENTS IN [place]. TRANSPORT WILL BE HERE TO PICK PT UP AT 7:30 AM. PLEASE GET PT A EARLY BREAKFAST. RN AWARE.
[2021-10-07 11:00] VITALS: PULSE 101; RESP 18; O2SAT 97
[2021-10-07 14:00] VITALS: BP 125/64; PULSE 93; RESP 18; TEMP 35.9; O2SAT 96
--- NOTE | 2021-10-07 15:41 | CHAPLAIN ---
Type of Pastoral Visit _x__ Initial Visit ___ Follow-up Visit ___ On-call Visit ___ General Patient Visit ___ Spiritual Assessment ___ Family Conference ___ Bereavement ___ Rapid Response ___ Code Blue ___ Other (describe below) Pastoral Care Referral From _x__ Patient ___ Family ___ Nurse ___ Physician ___ Manager Library ___ Commercial Leasing Manager ___ Other (describe below) Sacrament/Intervention ___ Active listening ___ Anointing ___ Restoration ___ Bereavement ___ Communion ___ Laura exploration ___ ___ Life review ___ Prayer ___ Reconciliation ___ Sacrament of Sick ___ Supportive presence ___ Wedding _x__ Other (describe below) Pastoral Comments patient had visitors so this visit was short; pt asked if needed anything and he said no
[2021-10-07] MEDS: MELATONIN 10 MG TABLET 5 MG PO (21:27)
[2021-10-08] MEDS: Acetaminophen 500 MG Tablet 1000 MG PO ×3 (05:56→23:09)
[2021-10-08] MEDS: traMADol 50 MG Tablet 75 MG PO ×3 (05:56→23:08)
[2021-10-08] MEDS: Menthol/Lanolin/Calamine/Znox 113 GM Tube 1 APPLIC TOPICAL ×2 (05:58→17:04)
[2021-10-08] MEDS: Polyethylene Glycol 3350 17 GM PACKET PO (05:58)
[2021-10-08] MEDS: Nystatin Powder 15gm Bottle 1 APPLIC TOPICAL ×2 (05:59→23:10)
[2021-10-08] MEDS: Senna/Docusate Sodium 1 Tablet PO ×2 (06:00→17:04)
[2021-10-08] MEDS: Methocarbamol 500 MG Tablet PO ×4 (06:00→23:10)
[2021-10-08 06:20] LABS: Bedside Glucose 107 mg/dL (74-106)
[2021-10-08] MEDS: Juven (unflavored) Packet 1 PACKET PO ×2 (08:06→17:04)
[2021-10-08] MEDS: metFORMIN HCl 500 MG Tablet PO ×2 (08:06→17:04)
[2021-10-08] MEDS: Ergocalciferol 1.25 MG (50, 000 UNIT) Capsule PO (09:51)
--- NOTE | 2021-10-08 11:15 | NURSING ---
Pt left floor at approx 1030 for radiation
[2021-10-08 15:00] VITALS: BP 132/69; PULSE 90; RESP 14; TEMP 36.6; O2SAT 97
[2021-10-08] MEDS: MELATONIN 10 MG TABLET 5 MG PO (23:09)
[2021-10-09] MEDS: traMADol 50 MG Tablet 75 MG PO ×2 (05:29→17:22)
[2021-10-09] MEDS: Methocarbamol 500 MG Tablet PO ×3 (05:30→17:17)
[2021-10-09] MEDS: Acetaminophen 500 MG Tablet 1000 MG PO ×2 (05:30→17:22)
[2021-10-09] MEDS: Polyethylene Glycol 3350 17 GM PACKET PO (05:30)
[2021-10-09] MEDS: Menthol/Lanolin/Calamine/Znox 113 GM Tube 1 APPLIC TOPICAL ×2 (05:30→17:17)
[2021-10-09] MEDS: Nystatin Powder 15gm Bottle 1 APPLIC TOPICAL ×2 (05:31→20:55)
[2021-10-09] MEDS: Senna/Docusate Sodium 1 Tablet PO ×2 (05:31→17:17)
[2021-10-09 06:30] LABS: Bedside Glucose 108 mg/dL (74-106)
[2021-10-09] MEDS: metFORMIN HCl 500 MG Tablet PO ×2 (08:20→17:17)
[2021-10-09] MEDS: Juven (unflavored) Packet 1 PACKET PO ×2 (08:20→17:17)
[2021-10-09 09:15] VITALS: PULSE 96; RESP 18; O2SAT 96
[2021-10-09 14:20] VITALS: BP 115/67; PULSE 83; RESP 18; TEMP 36.4; O2SAT 97
[2021-10-09] MEDS: MELATONIN 10 MG TABLET 5 MG PO (20:53)
[2021-10-10] MEDS: Methocarbamol 500 MG Tablet PO ×4 (00:11→17:25)
[2021-10-10] MEDS: Polyethylene Glycol 3350 17 GM PACKET PO (05:53)
[2021-10-10] MEDS: Nystatin Powder 15gm Bottle 1 APPLIC TOPICAL ×2 (05:53→22:00)
[2021-10-10] MEDS: Senna/Docusate Sodium 1 Tablet PO ×2 (05:54→17:25)
[2021-10-10] MEDS: Acetaminophen 500 MG Tablet 1000 MG PO ×3 (05:54→18:24)
[2021-10-10] MEDS: Menthol/Lanolin/Calamine/Znox 113 GM Tube 1 APPLIC TOPICAL ×2 (05:59→17:26)
[2021-10-10 06:15] LABS: Bedside Glucose 108 mg/dL (74-106)
[2021-10-10] MEDS: Juven (unflavored) Packet 1 PACKET PO ×2 (08:01→17:25)
[2021-10-10] MEDS: metFORMIN HCl 500 MG Tablet PO ×2 (08:01→17:25)
[2021-10-10] MEDS: traMADol 50 MG Tablet 75 MG PO ×2 (11:58→18:25)
[2021-10-10 14:17] VITALS: BP 132/75; PULSE 86; RESP 18; TEMP 36.6; O2SAT 96
[2021-10-10 23:48] VITALS: RESP 18
[2021-10-11] MEDS: Methocarbamol 500 MG Tablet PO ×4 (00:26→17:02)
[2021-10-11] MEDS: MELATONIN 10 MG TABLET 5 MG PO ×2 (00:26→20:56)
[2021-10-11] MEDS: traMADol 50 MG Tablet 75 MG PO ×3 (00:27→18:14)
[2021-10-11] MEDS: Acetaminophen 500 MG Tablet 1000 MG PO ×3 (00:27→18:14)
[2021-10-11 06:16] LABS: Bedside Glucose 119 mg/dL (74-106)
[2021-10-11] MEDS: Polyethylene Glycol 3350 17 GM PACKET PO (06:25)
[2021-10-11] MEDS: Senna/Docusate Sodium 1 Tablet PO (06:26)
[2021-10-11] MEDS: Nystatin Powder 15gm Bottle 1 APPLIC TOPICAL ×2 (06:26→20:57)
[2021-10-11] MEDS: Menthol/Lanolin/Calamine/Znox 113 GM Tube 1 APPLIC TOPICAL ×2 (06:29→17:03)
[2021-10-11 07:15] LABS: Absolute Lymphocyte Count 0.89 X10^3/uL (0.83-4.51); Absolute Neutrophil Count 1.8 X10^3/uL (2.0-7.7); Basophil# 0.02 X10^3/uL; Basophil% 0.6 % (0-1); Eosinophil# 0.19 X10^3/uL; Eosinophils% 5.8 % (0-5); Hematocrit 36.7 % (40-54); Lymphocyte # 0.89 X10^3/ul (0.83-4.51); Lymphocyte % 27.4 % (19-41); Mean Corp Hgb Conc 32.7 g/dL (32-36); Mean Corpuscular Volume 100.8 fL (80-94); Mean Platelet Vol. 9.4 fl (6.2-12.0); Monocyte% 9.2 % (0-10); NRBC Flagged by Analyzer 0 % (0-5); Neutrophil # 1.83 X10^3/uL (2.7-7.7); Neutrophil % 56.4 % (47-70); Platelet Count 148 K/mm3 (150-450); RBC Distribution Width CV 13.7 % (11.6-14.6); RBC Distribution Width SD 50.7 fl (35.1-43.9); Red Blood Count 3.64 M/mm3 (4.6-6.2); White Blood Count 3.3 K/mm3 (4.4-11.0)
[2021-10-11 07:30] LABS: Anion Gap 4 (5-15); BUN 31 mg/dL (7-18); BUN/Creat Ratio 38.5 RATIO (10-20); Calcium,Total 8.7 mg/dL (8.5-10.1); Chloride 106 mmol/L (98-107); Creatinine, Serum 0.81 mg/dL (0.70-1.30); EST Glomerular Filtration Rate 98 mL/min (>60); Est Glom Filt Rate - Afr Amer 118 mL/min (>60); Estimated Creatinine Clearance 64.54 ml/min; Glucose 127 mg/dL (74-106); Potassium 4.3 mmol/L (3.5-5.1); Sodium Level 138 mmol/L (136-145)
[2021-10-11] MEDS: metFORMIN HCl 500 MG Tablet PO ×2 (07:57→17:02)
[2021-10-11] MEDS: Juven (unflavored) Packet 1 PACKET PO ×2 (07:58→17:02)
--- NOTE | 2021-10-11 10:25 | NURSING ---
Pt wanted to get out of his recliner and sit at the table and chairs set up in his room. Wheel chair positioned by recliner so pt could transfer to w/c then transfer from w/c to table and chairs d/t pt being nonweight bearing to RLE. Pt began walking to the table and chair set stating I do not feel like getting up and down, then up and down again. This nurse educated pt on weight bearing orders and explained to pt he is not supposed to be putting weight on his RLE and that is was safer if pt would use the w/c. Pt denies stating it is only a few feet, ill just shimmy my way over there.
[2021-10-11 15:17] VITALS: BP 123/67; PULSE 85; RESP 16; TEMP 36.3; O2SAT 95
[2021-10-12] MEDS: Methocarbamol 500 MG Tablet PO ×5 (00:05→23:53)
[2021-10-12] MEDS: Acetaminophen 500 MG Tablet 1000 MG PO ×3 (00:05→15:06)
[2021-10-12] MEDS: traMADol 50 MG Tablet 75 MG PO ×3 (00:06→15:08)
[2021-10-12] MEDS: Polyethylene Glycol 3350 17 GM PACKET PO (06:05)
[2021-10-12] MEDS: Nystatin Powder 15gm Bottle 1 APPLIC TOPICAL ×2 (06:05→22:01)
[2021-10-12] MEDS: Senna/Docusate Sodium 1 Tablet PO (06:06)
[2021-10-12] MEDS: Menthol/Lanolin/Calamine/Znox 113 GM Tube 1 APPLIC TOPICAL ×2 (06:08→17:30)
[2021-10-12 06:25] LABS: Bedside Glucose 99 mg/dL (74-106)
[2021-10-12] MEDS: Juven (unflavored) Packet 1 PACKET PO ×2 (08:07→17:16)
[2021-10-12] MEDS: metFORMIN HCl 500 MG Tablet PO ×2 (08:07→17:15)
[2021-10-12 15:21] VITALS: BP 116/61; PULSE 82; RESP 16; TEMP 36.7; O2SAT 94
[2021-10-12 21:52] VITALS: PULSE 76; RESP 16; O2SAT 96
[2021-10-12] MEDS: MELATONIN 10 MG TABLET 5 MG PO (21:53)
[2021-10-13] MEDS: Senna/Docusate Sodium 1 Tablet PO (06:01)
[2021-10-13] MEDS: Methocarbamol 500 MG Tablet PO ×4 (06:01→23:21)
[2021-10-13] MEDS: Polyethylene Glycol 3350 17 GM PACKET PO (06:01)
[2021-10-13 06:21] LABS: Bedside Glucose 113 mg/dL (74-106)
[2021-10-13] MEDS: Nystatin Powder 15gm Bottle 1 APPLIC TOPICAL ×2 (08:20→23:21)
[2021-10-13] MEDS: Menthol/Lanolin/Calamine/Znox 113 GM Tube 1 APPLIC TOPICAL ×2 (08:20→20:20)
[2021-10-13] MEDS: Juven (unflavored) Packet 1 PACKET PO ×2 (08:22→17:17)
[2021-10-13] MEDS: metFORMIN HCl 500 MG Tablet PO ×2 (08:23→17:17)
[2021-10-13 09:35] VITALS: PULSE 85; RESP 18; O2SAT 96
[2021-10-13 14:04] VITALS: BP 117/66; PULSE 100; RESP 16; TEMP 36.6; O2SAT 97
[2021-10-13] MEDS: Acetaminophen 500 MG Tablet 1000 MG PO (23:19)
[2021-10-13] MEDS: MELATONIN 10 MG TABLET 5 MG PO (23:21)
[2021-10-14] MEDS: Polyethylene Glycol 3350 17 GM PACKET PO (06:46)
[2021-10-14] MEDS: Senna/Docusate Sodium 1 Tablet PO ×2 (06:47→17:18)
[2021-10-14] MEDS: Methocarbamol 500 MG Tablet PO ×4 (06:47→23:02)
[2021-10-14] MEDS: Menthol/Lanolin/Calamine/Znox 113 GM Tube 1 APPLIC TOPICAL ×2 (06:48→17:17)
[2021-10-14] MEDS: Nystatin Powder 15gm Bottle 1 APPLIC TOPICAL ×2 (06:48→23:03)
[2021-10-14 07:51] LABS: Bedside Glucose 127 mg/dL (74-106)
[2021-10-14] MEDS: metFORMIN HCl 500 MG Tablet PO ×2 (08:21→17:17)
[2021-10-14] MEDS: Juven (unflavored) Packet 1 PACKET PO ×2 (08:21→17:16)
[2021-10-14] MEDS: Acetaminophen 500 MG Tablet 1000 MG PO ×2 (08:29→23:01)
[2021-10-14 14:23] VITALS: BP 123/72; PULSE 88; RESP 14; TEMP 36.9; O2SAT 95
--- NOTE | 2021-10-14 16:06 | CHAPLAIN ---
Type of Pastoral Visit ___ Initial Visit _x__ Follow-up Visit ___ On-call Visit ___ General Patient Visit ___ Spiritual Assessment ___ Family Conference ___ Bereavement ___ Rapid Response ___ Code Blue ___ Other (describe below) Pastoral Care Referral From _x__ Patient _x__ Family ___ Nurse ___ Physician ___ Line Maintenance Supervisor ___ Dent Remover ___ Other (describe below) Sacrament/Intervention _x__ Active listening ___ Anointing ___ Caodaism ___ Bereavement ___ Communion _x__ Laura exploration ___ _x__ Life review _x__ Prayer ___ Reconciliation ___ Sacrament of Sick _x__ Supportive presence ___ Wedding ___ Other (describe below) Pastoral Comments patient and spouse playing a game in his room; pt welcomes visit; pt admits that his hospital stay is getting harder for him emotionally but that he is persevering through it with the help of laura in God; pt has support and speaks of good care in TCU; prayer and presence welcomed
[2021-10-14 22:00] VITALS: RESP 18
[2021-10-14] MEDS: MELATONIN 10 MG TABLET 5 MG PO (23:02)
[2021-10-15] MEDS: Methocarbamol 500 MG Tablet PO ×4 (05:56→23:03)
[2021-10-15] MEDS: Polyethylene Glycol 3350 17 GM PACKET PO (05:56)
[2021-10-15] MEDS: Senna/Docusate Sodium 1 Tablet PO (05:57)
[2021-10-15] MEDS: Nystatin Powder 15gm Bottle 1 APPLIC TOPICAL ×2 (05:57→23:03)
[2021-10-15] MEDS: Acetaminophen 500 MG Tablet 1000 MG PO ×2 (06:00→23:05)
[2021-10-15] MEDS: Menthol/Lanolin/Calamine/Znox 113 GM Tube 1 APPLIC TOPICAL ×2 (06:01→17:19)
[2021-10-15 06:21] LABS: Bedside Glucose 125 mg/dL (74-106)
[2021-10-15] MEDS: Juven (unflavored) Packet 1 PACKET PO ×2 (08:13→17:18)
[2021-10-15] MEDS: metFORMIN HCl 500 MG Tablet PO ×2 (08:13→17:18)
[2021-10-15] MEDS: Ergocalciferol 1.25 MG (50, 000 UNIT) Capsule PO (11:06)
[2021-10-15 13:48] VITALS: BP 127/74; PULSE 87; RESP 16; TEMP 36.8; O2SAT 96
[2021-10-15] MEDS: MELATONIN 10 MG TABLET 5 MG PO (23:03)
[2021-10-16] MEDS: Methocarbamol 500 MG Tablet PO ×4 (05:58→23:02)
[2021-10-16] MEDS: Acetaminophen 500 MG Tablet 1000 MG PO ×3 (05:58→23:05)
[2021-10-16] MEDS: Menthol/Lanolin/Calamine/Znox 113 GM Tube 1 APPLIC TOPICAL ×2 (05:58→17:10)
[2021-10-16] MEDS: Nystatin Powder 15gm Bottle 1 APPLIC TOPICAL ×2 (05:59→23:03)
[2021-10-16 06:21] LABS: Bedside Glucose 115 mg/dL (74-106)
[2021-10-16] MEDS: Juven (unflavored) Packet 1 PACKET PO ×2 (07:58→17:08)
[2021-10-16] MEDS: metFORMIN HCl 500 MG Tablet PO ×2 (07:58→17:09)
[2021-10-16 16:00] VITALS: BP 128/73; PULSE 95; RESP 18; TEMP 36.4; O2SAT 96
[2021-10-16] MEDS: MELATONIN 10 MG TABLET 5 MG PO (23:03)
[2021-10-17 06:25] LABS: Bedside Glucose 121 mg/dL (74-106)
[2021-10-17] MEDS: Polyethylene Glycol 3350 17 GM PACKET PO (06:37)
[2021-10-17] MEDS: Senna/Docusate Sodium 1 Tablet PO (06:42)
[2021-10-17] MEDS: Methocarbamol 500 MG Tablet PO ×4 (06:42→23:32)
[2021-10-17] MEDS: Acetaminophen 500 MG Tablet 1000 MG PO ×3 (06:42→20:57)
[2021-10-17] MEDS: Nystatin Powder 15gm Bottle 1 APPLIC TOPICAL ×2 (06:43→20:54)
[2021-10-17] MEDS: Menthol/Lanolin/Calamine/Znox 113 GM Tube 1 APPLIC TOPICAL ×2 (06:44→20:52)
[2021-10-17] MEDS: metFORMIN HCl 500 MG Tablet PO ×2 (08:25→18:11)
[2021-10-17] MEDS: Juven (unflavored) Packet 1 PACKET PO ×2 (08:25→18:11)
--- NOTE | 2021-10-17 08:39 | NURSING ---
PT HAD VISITOR THIS MORNING AND DIDNT STOP TO TAKE HIS TEMP THAT IS REQUIRED ON THIS FLOOR WITH A MASK. TALKED TO VISITOR AND ASKED HIM TO PLEASE GO AND SCAN FOR TEMP AND WEAR A MASK DUE TO IT IS A REQUIREMENT FROM [employer] CAUSE WE ARE A RESIDENTIAL. VISITOR STATED I HAVE THIS HELMET I WEAR AND PROTECTS ME BETTER THEN YOUR MASK. AGAIN I ASKED VISITOR AND EXPLAINED WE ARE PROTECTING OUR PTS. VISITOR KEPT GIVING THIS NURSE A HARD TIME ABOUT IT AND THIS NURSE STATED TO VISITOR THAT I WILL BE LETTING MY BOILER ENGINEER KNOW. AFTER VISITOR LEFT I TALKED TO PT AND HE SAID HE UNDER STANDS AND AGREES THAT EVERY ONE NEEDS TO FOLLOW THE RULES. ALSO STATED THAT THE VISITOR WILL GIVE US A HARD TIME ABOUT IT AND DOSENT BELIEVE IN ALL THESE MASKS AND STUFF. THIS NURSE STATED TO PT THAT IF HE DOES COME AGAIN AND REFUSES TO FOLLOW GUIDE LINES THAT I HAVE PERMISSION FROM MY BOILER ENGINEER TO CALL SECURITY. PT STATED OK AND UNDER STOOD. RODRIGUEZ LAI AND RN AWARE.
[2021-10-17 11:10] VITALS: PULSE 98; RESP 18; O2SAT 95
[2021-10-17 16:00] VITALS: BP 134/89; PULSE 90; RESP 14; TEMP 36.5; O2SAT 95
[2021-10-17] MEDS: MELATONIN 10 MG TABLET 5 MG PO (20:57)
[2021-10-18] MEDS: Polyethylene Glycol 3350 17 GM PACKET PO (06:15)
[2021-10-18] MEDS: Senna/Docusate Sodium 1 Tablet PO ×2 (06:15→17:16)
[2021-10-18] MEDS: Acetaminophen 500 MG Tablet 1000 MG PO ×3 (06:15→21:04)
[2021-10-18] MEDS: Nystatin Powder 15gm Bottle 1 APPLIC TOPICAL ×2 (06:15→21:04)
[2021-10-18] MEDS: Methocarbamol 500 MG Tablet PO ×4 (06:15→23:11)
[2021-10-18] MEDS: Menthol/Lanolin/Calamine/Znox 113 GM Tube 1 APPLIC TOPICAL ×2 (06:15→17:16)
[2021-10-18 06:26] LABS: Bedside Glucose 115 mg/dL (74-106)
[2021-10-18 06:51] LABS: Absolute Lymphocyte Count 1.05 X10^3/uL (0.83-4.51); Absolute Neutrophil Count 2.4 X10^3/uL (2.0-7.7); Basophil# 0.02 X10^3/uL; Basophil% 0.5 % (0-1); Eosinophil# 0.25 X10^3/uL; Eosinophils% 6.1 % (0-5); Hematocrit 38.9 % (40-54); Hemoglobin 12.8 g/dL (13.0-16.5); Lymphocyte # 1.05 X10^3/ul (0.83-4.51); Lymphocyte % 25.5 % (19-41); Mean Corp Hgb Conc 32.9 g/dL (32-36); Mean Corpuscular Hgb 32.8 pg (27.0-32.0); Mean Corpuscular Volume 99.7 fL (80-94); Monocyte% 9.7 % (0-10); NRBC Flagged by Analyzer 0 % (0-5); Neutrophil # 2.36 X10^3/uL (2.7-7.7); Neutrophil % 57.5 % (47-70); Platelet Count 154 K/mm3 (150-450); RBC Distribution Width CV 13.5 % (11.6-14.6); RBC Distribution Width SD 49.9 fl (35.1-43.9); White Blood Count 4.1 K/mm3 (4.4-11.0)
[2021-10-18 07:20] LABS: Anion Gap 6 (5-15); BUN 31 mg/dL (7-18); BUN/Creat Ratio 36.5 RATIO (10-20); Calcium,Total 9.2 mg/dL (8.5-10.1); Chloride 105 mmol/L (98-107); Creatinine, Serum 0.85 mg/dL (0.70-1.30); EST Glomerular Filtration Rate 92 mL/min (>60); Est Glom Filt Rate - Afr Amer 111 mL/min (>60); Estimated Creatinine Clearance 61.51 ml/min; Glucose 114 mg/dL (74-106); Potassium 4.6 mmol/L (3.5-5.1); Sodium Level 139 mmol/L (136-145)
[2021-10-18] MEDS: metFORMIN HCl 500 MG Tablet PO ×2 (07:40→17:16)
[2021-10-18] MEDS: Juven (unflavored) Packet 1 PACKET PO ×2 (07:40→17:15)
[2021-10-18 14:42] VITALS: BP 119/69; PULSE 101; RESP 18; TEMP 36.6; O2SAT 97
[2021-10-18] MEDS: MELATONIN 10 MG TABLET 5 MG PO (21:04)
[2021-10-18] MEDS: traMADol 50 MG Tablet 75 MG PO (23:11)
[2021-10-19] MEDS: Methocarbamol 500 MG Tablet PO ×3 (05:58→17:09)
[2021-10-19] MEDS: Polyethylene Glycol 3350 17 GM PACKET PO (05:58)
[2021-10-19] MEDS: Senna/Docusate Sodium 1 Tablet PO (05:59)
[2021-10-19] MEDS: Nystatin Powder 15gm Bottle 1 APPLIC TOPICAL (05:59)
[2021-10-19] MEDS: Menthol/Lanolin/Calamine/Znox 113 GM Tube 1 APPLIC TOPICAL ×2 (05:59→17:10)
[2021-10-19] MEDS: Acetaminophen 500 MG Tablet 1000 MG PO ×2 (06:00→13:17)
[2021-10-19 06:56] LABS: Bedside Glucose 113 mg/dL (74-106)
[2021-10-19] MEDS: Juven (unflavored) Packet 1 PACKET PO ×2 (08:04→17:09)
[2021-10-19] MEDS: metFORMIN HCl 500 MG Tablet PO ×2 (08:04→17:09)
[2021-10-19 15:00] VITALS: BP 127/74; PULSE 104; RESP 18; TEMP 36.1; O2SAT 97
[2021-10-20] MEDS: traMADol 50 MG Tablet 75 MG PO ×2 (00:04→23:02)
[2021-10-20] MEDS: MELATONIN 10 MG TABLET 5 MG PO ×2 (00:05→23:03)
[2021-10-20] MEDS: Nystatin Powder 15gm Bottle 1 APPLIC TOPICAL ×3 (00:05→22:58)
[2021-10-20] MEDS: Methocarbamol 500 MG Tablet PO ×5 (00:05→23:03)
[2021-10-20] MEDS: Acetaminophen 500 MG Tablet 1000 MG PO ×4 (00:07→23:01)
[2021-10-20 06:15] LABS: Bedside Glucose 113 mg/dL (74-106)
[2021-10-20] MEDS: Menthol/Lanolin/Calamine/Znox 113 GM Tube 1 APPLIC TOPICAL ×2 (07:34→17:25)
[2021-10-20] MEDS: Juven (unflavored) Packet 1 PACKET PO ×2 (08:01→17:24)
[2021-10-20] MEDS: metFORMIN HCl 500 MG Tablet PO ×2 (08:02→17:25)
[2021-10-20] MEDS: Hydrocortisone 2.5% Crm 1 APPLIC TOPICAL (13:44)
[2021-10-20 13:45] VITALS: PULSE 100; RESP 18; O2SAT 96
[2021-10-20 14:33] VITALS: BP 135/78; PULSE 94; RESP 16; TEMP 36.2; O2SAT 99
[2021-10-21] MEDS: Polyethylene Glycol 3350 17 GM PACKET PO (05:37)
[2021-10-21] MEDS: Acetaminophen 500 MG Tablet 1000 MG PO ×3 (05:38→22:48)
[2021-10-21] MEDS: Senna/Docusate Sodium 1 Tablet PO (05:39)
[2021-10-21] MEDS: Methocarbamol 500 MG Tablet PO ×3 (05:39→17:46)
[2021-10-21] MEDS: Menthol/Lanolin/Calamine/Znox 113 GM Tube 1 APPLIC TOPICAL ×2 (05:49→17:47)
[2021-10-21] MEDS: Nystatin Powder 15gm Bottle 1 APPLIC TOPICAL ×2 (05:49→22:54)
[2021-10-21 06:26] LABS: Bedside Glucose 112 mg/dL (74-106)
[2021-10-21] MEDS: Juven (unflavored) Packet 1 PACKET PO ×2 (08:37→17:46)
[2021-10-21] MEDS: metFORMIN HCl 500 MG Tablet PO ×2 (08:37→17:46)
[2021-10-21 15:56] VITALS: BP 144/84; PULSE 100; RESP 16; TEMP 36.7; O2SAT 95
[2021-10-21] MEDS: MELATONIN 10 MG TABLET 5 MG PO (22:45)
[2021-10-21] MEDS: traMADol 50 MG Tablet 75 MG PO (22:48)
[2021-10-22] MEDS: Methocarbamol 500 MG Tablet PO ×5 (00:15→23:56)
[2021-10-22] MEDS: Nystatin Powder 15gm Bottle 1 APPLIC TOPICAL ×2 (05:46→22:17)
[2021-10-22] MEDS: Acetaminophen 500 MG Tablet 1000 MG PO ×3 (05:46→22:17)
[2021-10-22] MEDS: Menthol/Lanolin/Calamine/Znox 113 GM Tube 1 APPLIC TOPICAL ×2 (05:47→18:14)
[2021-10-22 06:21] LABS: Bedside Glucose 125 mg/dL (74-106)
[2021-10-22] MEDS: Juven (unflavored) Packet 1 PACKET PO ×2 (08:23→18:14)
[2021-10-22] MEDS: metFORMIN HCl 500 MG Tablet PO ×2 (08:26→18:13)
[2021-10-22] MEDS: Ergocalciferol 1.25 MG (50, 000 UNIT) Capsule PO (10:40)
--- NOTE | 2021-10-22 14:34 | CHAPLAIN ---
Type of Pastoral Visit ___ Initial Visit _x__ Follow-up Visit ___ On-call Visit ___ General Patient Visit ___ Spiritual Assessment ___ Family Conference ___ Bereavement ___ Rapid Response ___ Code Blue ___ Other (describe below) Pastoral Care Referral From _x__ Patient ___ Family ___ Nurse ___ Physician ___ Tube Former Operator ___ Formula Checker ___ Other (describe below) Sacrament/Intervention _x__ Active listening ___ Anointing ___ Tenriism ___ Bereavement ___ Communion ___ Laura exploration ___ ___ Life review ___ Prayer ___ Reconciliation ___ Sacrament of Sick _x__ Supportive presence ___ Wedding ___ Other (describe below) Pastoral Comments patient is hopeful for a good report from tomorrow and that he can return home soon; pt reports great care from staff
[2021-10-22 16:00] VITALS: BP 125/77; PULSE 88; RESP 15; TEMP 36.3; O2SAT 97
[2021-10-22] MEDS: MELATONIN 10 MG TABLET 5 MG PO (22:17)
[2021-10-23] MEDS: Acetaminophen 500 MG Tablet 1000 MG PO ×3 (05:58→20:00)
[2021-10-23] MEDS: Menthol/Lanolin/Calamine/Znox 113 GM Tube 1 APPLIC TOPICAL ×2 (05:59→16:52)
[2021-10-23] MEDS: Methocarbamol 500 MG Tablet PO ×3 (05:59→23:40)
[2021-10-23] MEDS: Nystatin Powder 15gm Bottle 1 APPLIC TOPICAL ×2 (05:59→20:01)
[2021-10-23 06:26] LABS: Bedside Glucose 117 mg/dL (74-106)
[2021-10-23] MEDS: metFORMIN HCl 500 MG Tablet PO ×2 (07:07→16:51)
[2021-10-23] MEDS: Juven (unflavored) Packet 1 PACKET PO ×2 (07:07→16:51)
--- NOTE | 2021-10-23 08:39 | NURSING ---
Addendum entered by Ashlee Francis 10/24/21 15:56: Office called back and ok to remove air boot for showers/hygiene; change DSD dressing to RLE daily Addendum entered by Ashlee Francis 10/23/21 16:55: Pt states he is anticipating d/c next week and will call office and schedule his own f/u with ortho Addendum entered by Ashlee Francis 10/23/21 16:17: Pt's hard casts were removed to RUE and RLE. RUE WBAT and open to air, RLE has walking boot, Ortho called to clarify orders and they stated that pt WBAT to RLE while in boot. Ortho was also asked if it was ok to remove boot for showering, and was also asked regarding wound care orders and they stated they would send a message to the physician and they would be in touch with TCU staff. Ortho staff stated that pt is free to f/u with ortho closer to [place] or may continue to come to [place] for appointments, if pt wishes to remain in [place] f/u recommended in 3-4 weeks. Addendum entered by Ashlee Francis 10/23/21 14:05: pt back to floor at this time. Original Note: Pt left floor at this time for his ortho and plastics appointments
[2021-10-23 15:32] VITALS: BP 137/77; PULSE 100; RESP 14; TEMP 36.6; O2SAT 90
[2021-10-23 19:45] VITALS: PULSE 100; RESP 16; O2SAT 97
[2021-10-23] MEDS: MELATONIN 10 MG TABLET 5 MG PO (19:58)
[2021-10-24] MEDS: Acetaminophen 500 MG Tablet 1000 MG PO ×3 (05:30→21:59)
[2021-10-24] MEDS: Methocarbamol 500 MG Tablet PO ×3 (05:30→17:07)
[2021-10-24] MEDS: Nystatin Powder 15gm Bottle 1 APPLIC TOPICAL ×2 (05:31→22:10)
[2021-10-24] MEDS: Menthol/Lanolin/Calamine/Znox 113 GM Tube 1 APPLIC TOPICAL ×2 (05:31→17:07)
[2021-10-24 06:36] LABS: Bedside Glucose 118 mg/dL (74-106)
[2021-10-24] MEDS: metFORMIN HCl 500 MG Tablet PO ×2 (08:50→17:07)
[2021-10-24] MEDS: Juven (unflavored) Packet 1 PACKET PO ×2 (08:50→17:06)
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
--- NOTE | 2021-10-24 15:34 | CASEMGMT ---
Social Work Spoke with pt about request to DC home now that he has WBS on all extremities. Pt requesting DC 10/28. IDT agreeable. Pt agreed to HHC. Provided list of skilled HHC agencies with quality and resource data. Pt states he does not want to use the one he used last time, and prefers to the [facility]. No DME needs. to transport home. Referral made to [facility] PT/OT/SN. Plan: DC home with 10/28, [facility] PT/OT/SN ELLY MoeW
[2021-10-24 16:00] VITALS: BP 128/72; PULSE 94; RESP 14; TEMP 37.1; O2SAT 96
--- NOTE | 2021-10-24 17:50 | NURSING ---
Pt and family notified of staff member and another pt testing positive for covid.
[2021-10-24] MEDS: MELATONIN 10 MG TABLET 5 MG PO (21:59)
[2021-10-24 22:00] VITALS: RESP 16
[2021-10-25] MEDS: Methocarbamol 500 MG Tablet PO ×4 (00:14→18:04)
[2021-10-25 06:26] LABS: Bedside Glucose 112 mg/dL (74-106)
[2021-10-25] MEDS: Nystatin Powder 15gm Bottle 1 APPLIC TOPICAL ×2 (06:37→21:49)
[2021-10-25] MEDS: Menthol/Lanolin/Calamine/Znox 113 GM Tube 1 APPLIC TOPICAL ×2 (06:37→21:50)
[2021-10-25] MEDS: Acetaminophen 500 MG Tablet 1000 MG PO ×3 (06:38→21:48)
[2021-10-25 06:42] VITALS: BP 117/70; PULSE 95; RESP 16; TEMP 36.5; O2SAT 98
[2021-10-25] MEDS: Juven (unflavored) Packet 1 PACKET PO ×2 (08:44→18:03)
[2021-10-25] MEDS: metFORMIN HCl 500 MG Tablet PO ×2 (08:44→18:03)
[2021-10-25 10:35] VITALS: PULSE 91; RESP 18; O2SAT 96
--- NOTE | 2021-10-25 14:58 | NURSING ---
RIGHT LOWER LEG/FOOT WASHED AND DRIED,LOTION APPLIED,DRESSING AND CLOTH SLEEVE CHANGED. WALKING BOOT REAPPLIED.
[2021-10-25 16:00] VITALS: BP 125/80; PULSE 104; RESP 20; TEMP 36.4; O2SAT 97
[2021-10-25] MEDS: MELATONIN 10 MG TABLET 5 MG PO (21:48)
[2021-10-26] MEDS: Methocarbamol 500 MG Tablet PO ×5 (00:53→23:11)
[2021-10-26] MEDS: Nystatin Powder 15gm Bottle 1 APPLIC TOPICAL ×2 (05:50→23:11)
[2021-10-26] MEDS: Menthol/Lanolin/Calamine/Znox 113 GM Tube 1 APPLIC TOPICAL ×2 (05:51→17:26)
[2021-10-26] MEDS: Acetaminophen 500 MG Tablet 1000 MG PO ×3 (05:51→23:11)
[2021-10-26 06:41] LABS: Bedside Glucose 117 mg/dL (74-106)
[2021-10-26] MEDS: metFORMIN HCl 500 MG Tablet PO ×2 (07:51→17:20)
[2021-10-26] MEDS: Juven (unflavored) Packet 1 PACKET PO ×2 (07:51→17:20)
[2021-10-26 15:18] VITALS: BP 111/74; PULSE 102; RESP 18; TEMP 36.8; O2SAT 96
[2021-10-26] MEDS: MELATONIN 10 MG TABLET 5 MG PO (23:11)
[2021-10-27] MEDS: Methocarbamol 500 MG Tablet PO ×4 (06:18→23:10)
[2021-10-27] MEDS: Nystatin Powder 15gm Bottle 1 APPLIC TOPICAL ×2 (06:18→23:19)
[2021-10-27] MEDS: Acetaminophen 500 MG Tablet 1000 MG PO ×3 (06:18→23:09)
[2021-10-27] MEDS: Menthol/Lanolin/Calamine/Znox 113 GM Tube 1 APPLIC TOPICAL ×2 (06:18→17:14)
[2021-10-27 06:35] LABS: Bedside Glucose 115 mg/dL (74-106)
[2021-10-27] MEDS: metFORMIN HCl 500 MG Tablet PO ×2 (08:07→17:14)
[2021-10-27] MEDS: Juven (unflavored) Packet 1 PACKET PO ×2 (08:07→17:14)
[2021-10-27 10:00] VITALS: PULSE 98; RESP 18
[2021-10-27 15:48] VITALS: BP 143/73; PULSE 73; RESP 19; TEMP 36.9; O2SAT 95
--- NOTE | 2021-10-27 16:06 | CHAPLAIN ---
Type of Pastoral Visit ___ Initial Visit _x__ Follow-up Visit ___ On-call Visit ___ General Patient Visit ___ Spiritual Assessment ___ Family Conference ___ Bereavement ___ Rapid Response ___ Code Blue ___ Other (describe below) Pastoral Care Referral From _x__ Patient ___ Family ___ Nurse ___ Physician ___ Methods And Procedures Analyst ___ Condominium Property Manager ___ Other (describe below) Sacrament/Intervention _x__ Active listening ___ Anointing ___ Latter Day ___ Bereavement ___ Communion ___ Laura exploration ___ ___ Life review ___ Prayer ___ Reconciliation ___ Sacrament of Sick ___ Supportive presence ___ Wedding ___ Other (describe below) Pastoral Comments stopped by room of patient to wish him well as he is planning to leave tomorrow morning; casual conversation
[2021-10-27] MEDS: Senna/Docusate Sodium 1 Tablet PO (17:15)
[2021-10-27] MEDS: MELATONIN 10 MG TABLET 5 MG PO (23:10)
[2021-10-28 06:26] LABS: Bedside Glucose 111 mg/dL (74-106)
[2021-10-28] MEDS: Acetaminophen 500 MG Tablet 1000 MG PO (06:42)
[2021-10-28] MEDS: Methocarbamol 500 MG Tablet PO (06:43)
[2021-10-28] MEDS: Nystatin Powder 15gm Bottle 1 APPLIC TOPICAL (06:55)
[2021-10-28] MEDS: Menthol/Lanolin/Calamine/Znox 113 GM Tube 1 APPLIC TOPICAL (06:56)
[2021-10-28 07:31] VITALS: PULSE 80; RESP 18; O2SAT 98
[2021-10-28 07:39] VITALS: BP 138/82; PULSE 78; RESP 18; TEMP 36.6; O2SAT 98
[2021-10-28] MEDS: Juven (unflavored) Packet 1 PACKET PO (08:09)
[2021-10-28] MEDS: metFORMIN HCl 500 MG Tablet PO (08:09)
== END 2021-10-28 10:00 | disposition home health service (06) | DRG 560 ==
PROVIDERS: Podiatrist; Admitting Provider Family Medicine Geriatric Medicine; PCP Family Medicine; Visit Provider Family Medicine Geriatric Medicine
DX: S92.001D Unspecified fracture of right calcaneus, subsequent encounter for fracture with routine healing (principal); I50.32 Chronic diastolic (congestive) heart failure; I27.20 Pulmonary hypertension, unspecified; E11.51 Type 2 diabetes mellitus with diabetic peripheral angiopathy without gangrene; I11.0 Hypertensive heart disease with heart failure; I48.91 Unspecified atrial fibrillation; E78.5 Hyperlipidemia, unspecified; E55.9 Vitamin D deficiency, unspecified; S63.104D Unspecified dislocation of right thumb, subsequent encounter; Z23 Encounter for immunization; G89.29 Other chronic pain; V99.XXXD Unspecified transport accident, subsequent encounter; Z79.84 Long term (current) use of oral hypoglycemic drugs; Z87.891 Personal history of nicotine dependence; Z79.899 Other long term (current) drug therapy; Z79.01 Long term (current) use of anticoagulants
CPT/HCPCS: 0064A; 36415; 73610; 73630; 80048; 82306; 82962; 85025; 87426; 90732; 91306; 97110; 97116; 97161; 97166; 97530; 97535; 97802

== ENCOUNTER → 2022-01-21 | Outpatient (CLI) | payer MEDICARE, OTHER, SELFPAY ==
--- NOTE | 2022-01-21 17:01 | RAD_ITS ---
STUDY: X-RAY CHEST REASON FOR EXAM: Male, 81 years old. COUGH SHORTNESS OF BREATH TECHNIQUE: XR Chest 2 Views COMPARISON: 05/08/2019 FINDINGS: There is no demonstrated pleural abnormality. Normal size heart. Normal mediastinum and rhona. Normal visualized pulmonary arteries. There is atherosclerotic calcification of the aortic arch with tortuosity. There are diffuse degenerative changes of the visualized thoracic spine. There is degenerative osteoarthritis of the bilateral shoulders. There is no demonstrated abnormality of the visualized soft tissue structures of the upper abdomen. RAD/Chest PA and Lateral IMPRESSION: There are no acute findings. Electronically Signed: Shiva Schmitz MD at 17:16 EDT ,
[2022-01-21 17:51] LABS: Absolute Lymphocyte Count 1.07 X10^3/uL (0.83-4.51); Absolute Neutrophil Count 3.4 X10^3/uL (2.0-7.7); Basophil# 0.03 X10^3/uL; Basophil% 0.6 % (0-1); Eosinophil# 0.34 X10^3/uL; Eosinophils% 6.4 % (0-5); Hematocrit 42.7 % (40-54); Hemoglobin 13.7 g/dL (13.0-16.5); Lymphocyte # 1.07 X10^3/ul (0.83-4.51); Lymphocyte % 20.1 % (19-41); Mean Corp Hgb Conc 32.1 g/dL (32-36); Mean Corpuscular Volume 99.8 fL (80-94); Mean Platelet Vol. 9.5 fl (6.2-12.0); Monocyte# 0.43 X10^3/uL; Monocyte% 8.1 % (0-10); NRBC Flagged by Analyzer 0 % (0-5); Neutrophil % 63.9 % (47-70); Platelet Count 153 K/mm3 (150-450); RBC Distribution Width SD 51.6 fl (35.1-43.9); Red Blood Count 4.28 M/mm3 (4.6-6.2); White Blood Count 5.3 K/mm3 (4.4-11.0)
[2022-01-21 18:24] LABS: Anion Gap 4 (5-15); BUN 20 mg/dL (7-18); BUN/Creat Ratio 23.1 RATIO (10-20); Calcium,Total 8.8 mg/dL (8.5-10.1); Chloride 105 mmol/L (98-107); Creatinine, Serum 0.87 mg/dL (0.70-1.30); EST Glomerular Filtration Rate 90 mL/min (>60); Est Glom Filt Rate - Afr Amer 109 mL/min (>60); Glucose 134 mg/dL (74-106); Potassium 4.8 mmol/L (3.5-5.1); Sodium Level 139 mmol/L (136-145)
== END | disposition home or self-care (01) ==
PROVIDERS: PCP Family Medicine; Referring Provider Family Medicine; Visit Provider Family Medicine
DX: R06.02 Shortness of breath (principal)
CPT/HCPCS: 36415; 71046; 80048; 85025

== ENCOUNTER → 2022-04-22 | Outpatient (CLI) | payer MEDICARE, OTHER, SELFPAY ==
[2022-04-22 15:48] LABS: Anion Gap 7 (5-15); BUN 19 mg/dL (7-18); BUN/Creat Ratio 23.8 RATIO (10-20); Calcium,Total 9.4 mg/dL (8.5-10.1); Chloride 105 mmol/L (98-107); Cholesterol 154 mg/dL (200); EST Glomerular Filtration Rate 99 mL/min (>60); Est Glom Filt Rate - Afr Amer 119 mL/min (>60); Glucose 114 mg/dL (74-106); High Density Lipoprotein 46 mg/dL; Potassium 4.6 mmol/L (3.5-5.1); Sodium Level 139 mmol/L (136-145); Triglycerides 115 mg/dL; Very Low Density Lipoprotein 23 mg/dL (5-40)
== END | disposition home or self-care (01) ==
LOC: MFPLAB 11:22
PROVIDERS: PCP Family Medicine; Referring Provider Family Medicine; Visit Provider Family Medicine
DX: E11.9 Type 2 diabetes mellitus without complications (principal)
CPT/HCPCS: 36415; 80048; 80061

== ENCOUNTER → 2022-08-07 | Outpatient (CLI) | payer MEDICARE, OTHER, SELFPAY ==
--- NOTE | 2022-08-07 12:55 | RAD_ITS ---
INDICATION: COUGH EXAMINATION/TECHNIQUE: X-RAY - XR Chest 2 Views COMPARISON: None. FINDINGS: LINES/DEVICES: None. LUNGS: No consolidation, edema or effusion. No pneumothorax. MEDIASTINUM AND CARDIOVASCULAR STRUCTURES: Cardiac silhouette not enlarged. Central airways and mediastinal contour are unremarkable. BONES AND SOFT TISSUES: Degenerative vertebral changes. RAD/Chest PA and Lateral IMPRESSION: No radiographic evidence of acute cardiopulmonary disease. Electronically Signed: Satish Miranda DO at 23:44 EST ,
== END | disposition home or self-care (01) ==
LOC: MTRAD 12:51
PROVIDERS: PCP Family Medicine; Referring Provider Internal Medicine Pulmonary Disease; Visit Provider Internal Medicine Pulmonary Disease
DX: R05.9 Cough, unspecified (principal)
CPT/HCPCS: 71046

== ENCOUNTER → 2022-08-17 | Outpatient (CLI) | payer MEDICARE, OTHER, SELFPAY | END | disposition home or self-care (01) | PROVIDERS: PCP Family Medicine; Visit Provider Internal Medicine Pulmonary Disease | DX: R05.9 Cough, unspecified (principal) | CPT/HCPCS: 87070; 87205 ==

== ENCOUNTER → 2022-10-21 | Outpatient (CLI) | payer MEDICARE, OTHER, SELFPAY ==
[2022-10-21 13:07] LABS: Anion Gap 4 (5-15); BUN 21 mg/dL (7-18); BUN/Creat Ratio 24.5 RATIO (10-20); Calcium,Total 9.1 mg/dL (8.5-10.1); Chloride 108 mmol/L (98-107); Cholesterol 147 mg/dL (200); Creatinine, Serum 0.86 mg/dL (0.70-1.30); EST Glomerular Filtration Rate 91 mL/min (>60); Est Glom Filt Rate - Afr Amer 110 mL/min (>60); Glucose 145 mg/dL (74-106); High Density Lipoprotein 47 mg/dL; Potassium 4.9 mmol/L (3.5-5.1); Sodium Level 141 mmol/L (136-145); Triglycerides 68 mg/dL; Very Low Density Lipoprotein 14 mg/dL (5-40)
== END | disposition home or self-care (01) ==
LOC: MFPLAB 11:23
PROVIDERS: PCP Family Medicine; Visit Provider Family Medicine
DX: E11.9 Type 2 diabetes mellitus without complications (principal)
CPT/HCPCS: 36415; 80048; 80061

== ENCOUNTER → 2023-04-22 | Outpatient (CLI) | payer MEDICARE, OTHER, SELFPAY ==
[2023-04-22 15:24] LABS: ALB/GLOB Ratio 1.2 RATIO (0.9-2.4); AST(SGOT) 15 U/L (15-37); Alanine Aminotransfer ALT/SGPT 20 U/L (16-61); Albumin, Serum 3.8 g/dL (3.2-5.0); Alkaline Phosphatase 66 U/L (45-117); Anion Gap 6 (5-15); BUN 26 mg/dL (7-18); BUN/Creat Ratio 27.9 RATIO (10-20); Calcium,Total 9.5 mg/dL (8.5-10.1); Chloride 107 mmol/L (98-107); Cholesterol 150 mg/dL (200); Creatinine, Serum 0.93 mg/dL (0.70-1.30); EST Glomerular Filtration Rate 82 mL/min (>60); Est Glom Filt Rate - Afr Amer 100 mL/min (>60); Globulin 3.3 g/dL (2.2-4.2); Glucose 125 mg/dL (74-106); High Density Lipoprotein 43 mg/dL; Potassium 4.6 mmol/L (3.5-5.1); Protein, Total 7.1 g/dL (6.4-8.2); Sodium Level 142 mmol/L (136-145); Triglycerides 86 mg/dL; Very Low Density Lipoprotein 17 mg/dL (5-40)
[2023-04-22 15:31] LABS: Microalbumin:Creatinine Ratio 323.3 mg/g CRE (<30 mg/g CRE)
== END | disposition home or self-care (01) ==
LOC: MFPLAB 11:54
PROVIDERS: PCP Family Medicine; Visit Provider Family Medicine
DX: E11.9 Type 2 diabetes mellitus without complications (principal)
CPT/HCPCS: 36415; 80053; 80061; 82043; 82570

== ENCOUNTER → 2023-10-22 | Outpatient (CLI) | payer MEDICARE, OTHER, SELFPAY ==
--- NOTE | 2023-10-22 13:48 | RAD_ITS ---
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 PELVIC BONES: No displaced fracture, destructive or sclerotic lesions. Note that overlapping bowel shadows may however obscure fine detail. Sacroiliac joints are unremarkable. No widening of the pubic symphysis. HIPS: The articular structures are unremarkable. No displaced fracture seen in this frontal view. SOFT TISSUES: No soft tissue swelling or gas. RAD/Hips B/L min 2 views w/ Pelvis IMPRESSION: Bilateral total hip arthroplasties. No evidence of displaced pelvic or hip fracture. Electronically Signed: Palomo Huber MD at 23:20 EDT ,
[2023-10-22 16:22] LABS: Anion Gap 3 (5-15); BUN 20 mg/dL (7-18); BUN/Creat Ratio 23.9 RATIO (10-20); Calcium,Total 8.9 mg/dL (8.5-10.1); Chloride 107 mmol/L (98-107); Cholesterol 166 mg/dL (200); Creatinine, Serum 0.84 mg/dL (0.70-1.30); EST Glomerular Filtration Rate 93 mL/min (>60); Est Glom Filt Rate - Afr Amer 113 mL/min (>60); Glucose 137 mg/dL (74-106); High Density Lipoprotein 47 mg/dL; Potassium 4.8 mmol/L (3.5-5.1); Sodium Level 140 mmol/L (136-145); Triglycerides 119 mg/dL; Very Low Density Lipoprotein 24 mg/dL (5-40)
== END | disposition home or self-care (01) ==
PROVIDERS: PCP Family Medicine; Referring Provider Family Medicine; Visit Provider Family Medicine
DX: M25.552 Pain in left hip (principal); E11.9 Type 2 diabetes mellitus without complications
CPT/HCPCS: 36415; 73521; 80048; 80061

== ENCOUNTER 2023-12-01 14:00 | Outpatient (RCR) | payer MEDICARE, OTHER, SELFPAY ==
--- NOTE | 2023-11-21 09:02 | HP.PTEVAL ---
Patient's Visit Information Visit Information Visit Information: JOSE ANGEL BLANCHARD is a 83 year old M referred to Physical Therapy by Dr. Chiki Brooks MD with a diagnosis of L hip pain. Date of Evaluation: 11/16/23 Physical Therapist: Dk Steele DPT Visit Plan Frequency: 2x /Week Duration: 6 Weeks Plan: Start with flexion trunk stretching in seated. (Pt. un able to lie down) Add in seated/standing core and LE strengthening. May use IFC and ice post PT. but will have to be unbilled. Subjective Subjective: Pt. is here today for his initial evaluation with diagnosis of L hip pain. Pt. reports having pain in B hips and lumbar spine for years, but is also having pain in B knees. No new mech of injury, but has fallen in the past. Pt. reports that his legs do get weak and have almost given out on him before. He walks with a FWW and uses a rollator at times as well. He still drives and lives with his spouse, he reports mutually help each other. Pt. has had B hips replaced and had recent xray showing good alignment still. Pt reports always having pain in B posterior hips that does radiate down his legs at times. Pain is pretty bad in AMs and with standing/walking. Better in sitting. Pt. does not lie flat, but sleeps in a reclining chair due to his pain. Pt. has had an lumbar MRI in the past showing some degenerative changes of his spine as well. Pt. would like to reduce his lumbar spine and distal LE pain in order to get around the house better and tolerate community shopping and activities. Pain Lumbar spine: Pain Intensity (Out of 10): 5 Pain Intensity Range: 3 and 9 B posterior hips: Pain Intensity (Out of 10): 4 Pain Intensity Range: 2 and 8 B posterior thighs: Pain Intensity (Out of 10): 1 Pain Intensity Range: 0 and 7 Objective Objective: POSTURE: Pt. has pretty flexed posture in stance, BLE and back pain increases with increased uproght posture. PALPATION: Pt. has no pain with palpation of BLEs,mild pain in B lumbar erector spinae. NEURO: decreased reflexes in B patella 1+, bilateral achilles 1+. Pt. has difficulty rising on toes and heels. ROM: LUMBAR SPINE: ext max loss increase NW, flexion mod loss decrease better. SB max loss increase NW bilat, rotation max loss increase NW bilat. MMT: 4+/5 distal LEs, 4/5 B hips. GAIT: Pt. was able to ambulate 146' with FWW. Pt. has increased back and leg pain with progressive walking. Pt. is hard to fully examine due in ability to lie down. But presents with spinal stenotic like pathology. Balance/Special Test Scores Lower Extremity Functional Score: 0 Goals Goal 1:: LTG: Pt. to be I with HEP. Goal Time Frame: 4-6 Weeks Goal 2:: LTG: Pt. to be able to walk 350' with less than 2/10 pain in lumbar spine and B hips allowing for increased community ambulation. Goal Time Frame: 4-6 Weeks Goal 3:: LTG: Pt. to sit on comfortable chair for 30 min with less than 2/10 pain in B hips and back. Goal Time Frame: 4-6 Weeks Goal 4:: LTG: Pt. to have increased BLE strength to 5/5 throughout. Goal Time Frame: 4-6 Weeks Rehabilitation Potential Physical Therapy Diagnosis: Pt. has signs and symptoms of B hip and low back pain. Pt. is fairly limited with his mobility. He would benefit from PT to increase BLE strength, core strength and increased ability to ambulate. I also suggested talking to his physician about a pain management consult to see if this would be beneficial. Rehabilitation Potential: Fair Anticipated Interventions Patient/Client Instruction: Educate patient on: Condition, Plan of Care, Risk Factors and Benefits of Fitness Program For the Purpose of:: To improve health and function, To foster healthy habits, To improve decision making, To facilitate caregiver knowledge, To improve self management, To prevent re-injury and To improve ability to perform tasks related to life management Therapeutic Exercise to Include: Strength training, Power training and Dynamic Lumbar Stabilization For the Purpose of:: To decrease pain, To decrease swelling/inflammation, To increase ROM, To improve nutrient delivery to tissue, To increase oxygenation perfusion and To improve muscle performance and motor function TENS: Yes IF ES: Yes Cryotherapy (ice pack, ice massage): Yes For the Purpose of:: To decrease pain, To decrease swelling/inflammation and To increase ROM Text: Thank you for the opportunity to evaluate your patient. For Medicare and Medicare HMO plans, please review the plan of care and approve it. It will need to be FAXED BACK to us at [phone] for Medicare purposes. For Medicare only, by signing this I certify the plan of care. Please let me know if there are questions or concerns regarding this plan of care. Physician Signature: Date:
== END 2023-12-01 19:00 | disposition home or self-care (01) ==
LOC: PT 14:00
PROVIDERS: PCP Family Medicine; Referring Provider Family Medicine; Visit Provider Family Medicine
DX: M25.552 Pain in left hip (principal)
CPT/HCPCS: 97110; 97161

== ENCOUNTER → 2024-01-06 | Outpatient (CLI) | payer MEDICARE, OTHER, SELFPAY ==
--- NOTE | 2024-01-06 12:37 | RAD_ITS ---
STUDY: X-RAY - LUMBOSACRAL SPINE REASON FOR EXAM: Male, 83 years old. PAIN TECHNIQUE: 7 view(s) of the lumbosacral spine were obtained. COMPARISON: 06/03/2019 FINDINGS: Normal lumbar lordosis. Mild dextroscoliosis centered at L2. There is normal alignment of the vertebrae. There is multilevel endplate spondylosis of the lumbar vertebrae. There is multi-level degenerative disc disease with multi-level disc space narrowing. Multilevel facet hypertrophy and lumbar spine. Normal bilateral sacral ala, sacroiliac joints, and visualized sacrum. Normal visualized soft tissue structures. RAD/L/S Spine Comp/w Bending Views IMPRESSION: Mild dextroscoliosis with degenerative disc disease. MRI may be useful. Electronically Signed: Hi Mccoy MD at 10:00 EDT ,
== END | disposition home or self-care (01) ==
LOC: MTRAD 12:35
PROVIDERS: PCP Family Medicine; Referring Provider Anesthesiology Pain Medicine; Visit Provider Anesthesiology Pain Medicine
DX: M51.37 Other intervertebral disc degeneration, lumbosacral region (principal)
CPT/HCPCS: 72114

== ENCOUNTER 2024-02-03 12:21 | Inpatient (IN) | payer MEDICARE, OTHER, SELFPAY ==
[2024-02-03 12:21] VITALS: BP 105/56; PULSE 97; RESP 18; TEMP 35.9; O2SAT 97
--- NOTE | 2024-02-03 13:02 | RAD_ITS ---
STUDY: X-RAY - PELVIS AND RIGHT HIP REASON FOR EXAM: Male, 83 years old. Right hip pain following a fall. TECHNIQUE: views of the pelvis and hip. COMPARISON: None. FINDINGS: There is a non-specific bowel gas pattern. Normal visualized soft tissue structures. Normal bilateral iliac wings, sacroiliac joints and visualized sacrum. Normal bilateral superior and inferior pubic rami. Normal pubic symphysis. Normal bilateral ischial tuberosities. Bilateral total hip replacement. There is good alignment. RAD/Pelvis 1 or 2 Views IMPRESSION: Normal x-ray examination of the pelvis and hip. Electronically Signed: Kiel Romero MD at 14:14 EDT ,
[2024-02-03 13:28] LABS: Absolute Lymphocyte Count 0.56 X10^3/uL (0.83-4.51); Absolute Neutrophil Count 7.5 X10^3/uL (2.0-7.7); Basophil# 0.04 X10^3/uL; Basophil% 0.5 % (0-1); Eosinophil# 0.05 X10^3/uL; Eosinophils% 0.6 % (0-5); Hematocrit 39.2 % (40-54); Hemoglobin 13.3 g/dL (13.0-16.5); Lymphocyte # 0.56 X10^3/ul (0.83-4.51); Lymphocyte % 6.3 % (19-41); Mean Corp Hgb Conc 33.9 g/dL (32-36); Mean Corpuscular Volume 100.3 fL (80-94); Mean Platelet Vol. 9.3 fl (6.2-12.0); Monocyte% 6.8 % (0-10); NRBC Flagged by Analyzer 0 % (0-5); Neutrophil # 7.53 X10^3/uL (2.7-7.7); Neutrophil % 84.9 % (47-70); POSITIVE DIFFERENTIAL YES; Platelet Count 128 K/mm3 (150-450); RBC Distribution Width CV 14.3 % (11.6-14.6); RBC Distribution Width SD 51.5 fl (35.1-43.9); Red Blood Count 3.91 M/mm3 (4.6-6.2); White Blood Count 8.9 K/mm3 (4.4-11.0)
--- NOTE | 2024-02-03 13:30 | CT_ITS ---
STUDY: CT LUMBAR SPINE WITHOUT CONTRAST REASON FOR EXAM: Male, 83 years old. Trauma, pain RADIATION DOSAGE (If Supplied By Facility): CTDIvol = ( 29.80 ) mGy, DLP = ( 992.41 ) mGycm TECHNIQUE: The patient was scanned in a multi detector CT scanner. High resolution transaxial imaging was performed. Images were obtained from L1 to S1 vertebral level. Sagittal and coronal images were reconstructed. Individualized dose optimization techniques were used for this CT. COMPARISON: None FINDINGS: Normal lumbar lordosis. There is a mild dextroscoliosis of the lumbar spine. Normal vertebrae of the lumbar spine. L1-2: Mild degree of disc space narrowing. Mild degree of anterior spondylosis. L2-3: Mild degree of disc space narrowing. Anterior spondylosis. Mild degree of diffuse posterior disc bulge. Facet joint osteoarthritis and hypertrophy. Mild degree of bilateral neural foraminal and central canal stenosis. L3-4: Mild degree of disc space narrowing. Disc degeneration. Mild degree of diffuse posterior disc bulge. Facet joint osteoarthritis and hypertrophy causing bilateral neural foraminal stenosis. Hypertrophy of the ligamenta flava. Mild degree of central canal stenosis. L4-5: Mild degree of disc space narrowing. Spondylosis. Facet joint osteoarthritis and hypertrophy. Bilateral neural foraminal stenosis. L5-S1: Marked degree of disc space narrowing and disc degeneration. Facet joint osteoarthritis. No significant stenosis is seen. Normal visualized paraspinous soft tissue structures. CT/Spine Lumbar without Contrast IMPRESSION: Multilevel degenerative changes, as described above. Electronically Signed: Kiel Romero MD at 13:52 EDT ,
--- NOTE | 2024-02-03 13:30 | RAD_ITS ---
STUDY: X-RAY - RIGHT FEMUR REASON FOR STUDY: Male, 83 years old. Pain, trauma TECHNIQUE: 4 view(s) of the femur. COMPARISON: None. FINDINGS: Status post right total hip replacement. There is good alignment. No fracture or dislocation is seen. Normal visualized soft tissue structure. RAD/Femur Min 2 Views IMPRESSION: Status post right total hip replacement. There is good alignment. No acute abnormality is seen. Electronically Signed: Kiel Romero MD at 14:15 EDT ,
[2024-02-03 13:42] LABS: Anion Gap 7 (5-15); BUN 30 mg/dL (7-18); BUN/Creat Ratio 24.2 RATIO (10-20); Calcium,Total 9.2 mg/dL (8.5-10.1); Chloride 104 mmol/L (98-107); Creatinine, Serum 1.24 mg/dL (0.70-1.30); EST Glomerular Filtration Rate 59 mL/min (>60); Est Glom Filt Rate - Afr Amer 72 mL/min (>60); Glucose 149 mg/dL (74-106); Potassium 4.5 mmol/L (3.5-5.1); Sodium Level 138 mmol/L (136-145)
[2024-02-03] MEDS: Diphth,Pertuss(Acell),Tet Vac 0.5 ML Vial IM (13:50)
[2024-02-03] MEDS: Acetaminophen 325 MG Tablet 650 MG PO (13:51)
[2024-02-03 14:21] VITALS: BP 110/78; PULSE 81; RESP 14; O2SAT 98
--- NOTE | 2024-02-03 14:24 | ED.RN ---
BED DOES NOT WEIGH. PT HAD TO BE HELPED OUT OF A VEHICLE, TRIAGE COULD NOT GET A WEIGHT.
--- NOTE | 2024-02-03 14:55 | ED.VIS.FALL ---
HPI HPI - Fall History of Present Illness Chief Complaint: Fall Narrative Narrative: 83-year-old male past medical history of frequent falls, presents status post fall this morning around 930. He states that he was at the end of his ramp and had 1 more board to go when his right leg gave out on him. He fell onto his right side. He now has right hip and low back pain. He sustained some skin tears to his right forearm. He denies any his head or loss of consciousness. He and his states that they went to the orthopedic physician's office today, and saw the MARTHA who called in and stated that they could not even stand him for x-rays. He denies any fevers or chills, no nausea or vomiting, no other injuries except for his low back and his right hip. The pain radiates all the way down to his knee. He had refused to come by EMS from the orthopedic office. He is unsure of his last tetanus immunization. 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 Osteoarthritis Chronic pain disorder Diabetes type 2, controlled Decubitus ulcer of right buttock, stage 2 Home Medications ?Medication ?Instructions ?Recorded ?Last Taken ?Type metformin 500 mg tablet 500 mg PO BID diabetes 05/20/18 06/03/19 History multivitamin 1 tab PO DAILY 02/03/24 Unknown History nortriptyline 50 mg capsule 50 mg PO QHS 02/03/24 Unknown History Allergy/AdvReac Type Severity Reaction Status Date / Time naproxen (From Naprosyn) Allergy Unknown Hives Verified 02/03/24 12:25 codeine Allergy Hives Verified 02/03/24 12:25 gabapentin Allergy Hives Verified 02/03/24 12:25 hydrocodone (From Vicodin) Allergy Hives Verified 02/03/24 12:25 levofloxacin (From Levaquin) Allergy Hives Verified 02/03/24 12:25 lisinopril Allergy Hives Verified 02/03/24 12:25 morphine Allergy Hives Verified 02/03/24 12:25 sertraline (From Zoloft) Allergy Hives Verified 02/03/24 12:25 simvastatin (From Zocor) Allergy Hives Verified 02/03/24 12:25 sulfamethoxazole Allergy Hives Verified 02/03/24 12:25 Surgical History History of right and left heart catheterization (02/14/19) History of total replacement of both hip joints Social History household members: spouse Smoking Status: Former smoker Tobacco: How many years used: 5 how long ago did patient quit smokin alcohol intake: never substance use type: does not use ROS ROS ED ROS Narrative Constitutional: No fever, no chills. HEENT: No sore throat. No neck pain. No loss of vision. No rhinorrhea. Cardiovascular: No chest pain. No palpitations. No pedal edema. Respiratory: No cough, no shortness of breath. Abdominal: No abdominal pain. No nausea. No vomiting. Genitourinary: No dysuria. No hematuria. Musculoskeletal: No myalgias. Right hip pain. Positive low back pain. Neurologic: No headaches. No dizziness. No lightheadedness. No loss of bowel or bladder. Skin: No rash. No change in color. Skin tears to right forearm. Psychiatric: No depression. No anxiety. EXAM Physical Exam Narrative Exam Narrative: GCS 15. ABCs are intact. Head is normocephalic and atraumatic. PERRL, EOMI. Cardiovascular examination reveals regular rate and rhythm. Lungs are clear to auscultation bilaterally. Abdomen soft nontender with normal active bowel sounds. Inspection of the right forearm does show a few skin tears with multiple areas of previous bruising/ecchymosis. Full range of motion right elbow and right wrist. Capillary refill of fingers. He has full range of motion of his right hip without evidence of dislocation. Diffuse tenderness right hip. He appears neurovascular tact distally with palpable dorsalis pedis pulse. Able to flex and extend right knee. Diffuse tenderness to palpation throughout lumbar spine and paraspinal musculature. No step-off. Const Vital Signs: 02/03/24 12:21 02/03/24 12:34 02/03/24 14:21 Temperature 96.7 F L Temperature Source Temporal Pulse Rate 97 81 Respiratory Rate 18 14 Respiratory Effort Normal Non-Labored Blood Pressure 105/56 L 110/78 Blood Pressure Mean 72 88 Pulse Ox 97 98 Oxygen Delivery Method Room Air Room Air Room Air MDM MDM MDM Narrative Medical decision making narrative: Differential diagnosis includes hip fracture/dislocation. However, patient states he has bilateral hip replacements so concern would be more for periprosthetic fracture as clinically he does not have any evidence of dislocation with external rotation of his right lower extremity. Concern would also be for lumbar strain/sprain versus lumbar fracture. Patient has multiple allergies to codeine, hydrocodone, and morphine along with naproxen. He was given Tylenol for analgesia. X-rays were obtained of the right femur and pelvis as he is pain radiating all the way down to his knee and they were interpreted by myself independently as no evidence of fracture, no periprosthetic fracture or hip dislocation. No pelvic fracture. I reviewed the radiology report which confirms my independent interpretation. I reviewed the radiology report of the CT of the lumbar spine and there is no evidence of acute fracture. With the suspicion that he would be unable to ambulate as he lives at home with his and there was difficulty getting him out of the car today, I obtain baseline laboratories and reviewed them. He has a normal white count of 8.9 and hemoglobin normal at 13.3 with platelet counts low at 128. I do not feel he needs a transfusion. BMP shows glucose elevated at 149 with a normal anion gap of 7, BUN elevated at 30 with creatinine 1.24. Attempt was made to ambulate the patient with a walker like he does at home, but he was unsuccessful. He started complaining of more back and hip pain. He was administered fentanyl 25 mcg intravenously. I discussed patient with Dr. Zabrina Moncada for observation on the medical surgical floor. Disposition is assigned observation. Patient is in stable condition. History & Record Review Discussion w/independent historian: Patient and Family Additional record(s) reviewed:: Prior labs Lab Data Attestation: I reviewed the patient's lab results. Labs: Laboratory Results - last 24 hr 02/03/24 13:20 WBC 8.9 RBC 3.91 L Hgb 13.3 Hct 39.2 L MCV 100.3 H MCH 34.0 H MCHC 33.9 RDW Std Deviation 51.5 H RDW Coeff of Porter 14.3 Plt Count 128 L MPV 9.3 Immature Gran % (Auto) 0.900 Neut % (Auto) 84.9 H Lymph % (Auto) 6.[address] [place] % (Auto) 6.8 Eos % (Auto) 0.6 Baso % (Auto) 0.5 Absolute Neuts (auto) 7.5 Absolute Lymphs (auto) 0.56 L Nucleated RBC % 0 Sodium 138 Potassium 4.5 Chloride 104 Carbon Dioxide 27.0 Anion Gap 7 BUN 30 H Creatinine 1.24 Est GFR (MDRD) Af Amer 72 Est GFR (MDRD) Non-Af 59 L BUN/Creatinine Ratio 24.2 H Glucose 149 H Calcium 9.2 Radiography Diagnostic Testing: Clinical Impression(s) from Imaging Studies Pelvis X-Ray 02/03/24 13:02 IMPRESSION: Normal x-ray examination of the pelvis and hip. Electronically Signed: Kiel Romero MD at 14:14 EDT , Femur X-Ray 02/03/24 13:30 IMPRESSION: Status post right total hip replacement. There is good alignment. No acute abnormality is seen. Electronically Signed: Kiel Romero MD at 14:15 EDT , Lumbar Spine CT 02/03/24 13:30 IMPRESSION: Multilevel degenerative changes, as described above. Electronically Signed: Kiel Romero MD at 13:52 EDT , Management Discussion w/another healthcare provider: Hospitalist (Dr. Moncada) Discharge Plan Dx/Rx/DC Orders Clinical Impression: Frequent falls, Skin tear of right forearm without complication, Intractable low back pain, Unable to ambulate Disposition Disposition: Acute Care Hospital [facility] Discharge Date/Time: 02/03/24 16:45
[2024-02-03] MEDS: fentaNYL 100 MCG/2 ML Ampul 25 MCG IV (15:11)
--- NOTE | 2024-02-03 15:34 | PCM.HP.STD ---
HPI - General General Date of Admission: 02/03/24 Date of Service: 02/03/24 Chief Complaint: Back and leg pain HPI Narrative JOSE ANGEL BLANCHARD, is a 83 M with past medical history of OA, bilateral hip replacements, diabetes, heart failure preserved ejection fraction, WANDA who presented to [facility] ED 02/03/2024 with a fall this morning. No recent falls but reports this morning he was going down his ramp and when the walker reached the end he felt his right leg give out on him and he fell onto his right side resulting in right leg and low back pain. He went to his Ortho's office today and saw the PA and was recommended to come to the hospital as he could not even stand up for x-rays. CT lumbar spine no acute process, pelvis and femur x-rays no acute process however patient very painful and unable to stand up so hospitalist contacted for admission. Patient evaluated with at bedside, reports that he has no recent health complaints aside from shingles on the left side of his face 3 weeks ago for which he received treatment but has some residual pain but otherwise had been doing well for this fall. Currently has pain across his lower back and some sharp pain in his right leg to his knee when moving, not feeling particularly painful in left leg. No numbness or weakness, no fevers, no urinary or GI complaints. 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 Nonhealing nonsurgical wound with fat layer exposed On amiodarone therapy Osteoarthritis Peripheral vascular disease of lower extremity with ulceration Traumatic skin ulcer with fat layer exposed Home Medications ?Medication ?Instructions ?Recorded ?Last Taken ?Type metformin 500 mg tablet 500 mg PO BID diabetes 05/20/18 06/03/19 History acetaminophen 500 mg tablet 1,000 mg (2 x 500 mg) PO TID #0 10/24/21 Unknown Rx tabs arginine 7 gram-glutam 7 1 packet PO BIDCM 30 days #60 ea 10/24/21 Unknown Rx gram-CaHMB 1.5 [id number] oral pwd pkt (Jack (with collagen)) ergocalciferol (vitamin D2) 1,250 1.25 mg PO Q7D 30 days #5 caps 10/24/21 Unknown Rx mcg (50,000 unit) capsule (Vitamin D2) melatonin 10 mg sublingual tablet 5 mg (1/2 x 10 mg) PO QHS #0 tabs 10/24/21 Unknown Rx methocarbamol 500 mg tablet 500 mg PO Q6H Muscle spasms 30 10/24/21 Unknown Rx days #120 tabs nortriptyline 50 mg capsule 50 mg PO QHS 02/03/24 Unknown History Allergy/AdvReac Type Severity Reaction Status Date / Time naproxen (From Naprosyn) Allergy Unknown Hives Verified 02/03/24 12:25 codeine Allergy Hives Verified 02/03/24 12:25 gabapentin Allergy Hives Verified 02/03/24 12:25 hydrocodone (From Vicodin) Allergy Hives Verified 02/03/24 12:25 levofloxacin (From Levaquin) Allergy Hives Verified 02/03/24 12:25 lisinopril Allergy Hives Verified 02/03/24 12:25 morphine Allergy Hives Verified 02/03/24 12:25 sertraline (From Zoloft) Allergy Hives Verified 02/03/24 12:25 simvastatin (From Zocor) Allergy Hives Verified 02/03/24 12:25 sulfamethoxazole Allergy Hives Verified 02/03/24 12:25 Surgical History History of right and left heart catheterization (02/14/19) History of total replacement of both hip joints Social History household members: spouse Smoking Status: Former smoker Tobacco: How many years used: 5 how long ago did patient quit smokin alcohol intake: never substance use type: does not use ROS ROS Narrative General: Denies fever/chills HENT: Denies headache, denies stuffy nose, denies sore throat EYES: Has had some intermittent left eye blurry vision with his shingles Resp: Denies cough, denies shortness of breath Cardiac: Denies chest pain GI: Denies abdominal pain, denies changes in bowel, denies nausea/vomiting : Denies changes in urination Extremity: Denies swelling MSK: Denies weakness, painful in lower back and into right leg Neuro: Denies any numbness/tingling Heme: Has some scrapes from fall Skin: Right arm wrapped due to scrapes from fall Psychiatric: No complaints voiced Vital Signs Vital Signs Vital Signs: 02/03/24 12:21 02/03/24 12:34 02/03/24 14:21 Temperature 96.7 F L Temperature Source Temporal Pulse Rate 97 81 Respiratory Rate 18 14 Respiratory Effort Normal Non-Labored Blood Pressure 105/56 L 110/78 Blood Pressure Mean 72 88 Pulse Ox 97 98 Oxygen Delivery Method Room Air Room Air Room Air Physical Exam Narrative General: Alert, does not appear particularly distressed, somewhat tired post fentanyl administration HEENT: Patient with some scattered red patches on left upper side of face with no open lesions, does have a cyst draining in left ear Eyes: Anicteric, recently had shingles affecting left eye, left eyelid somewhat drooping compared to right Neck: Supple Respiratory: Clear to auscultation bilaterally, normal respiratory effort Cardiovascular: Regular rate GI: Soft, nontender, nondistended Extremities: No edema Musculoskeletal: Can move extremities however right extremity lifting off bed is limited due to pain Neuro: No overt focal neurological deficits Skin: Face findings as above, right arm wrapped where patient skinned it when he fell Psych: Cooperative Results Lab / Micro Data 02/03/24 13:20 02/03/24 13:20 Labs: Laboratory Results - last 24 hr 02/03/24 13:20: WBC 8.9, RBC 3.91 L, Hgb 13.3, Hct 39.2 L, MCV 100.3 H, MCH 34.0 H, MCHC 33.9, RDW Std Deviation 51.5 H, RDW Coeff of Porter 14.3, Plt Count 128 L, MPV 9.3, Immature Gran % (Auto) 0.900, Neut % (Auto) 84.9 H, Lymph % (Auto) 6.3 L, [place] % (Auto) 6.8, Eos % (Auto) 0.6, Baso % (Auto) 0.5, Absolute Neuts (auto) 7.5, Absolute Lymphs (auto) 0.56 L, Nucleated RBC % 0, Sodium 138, Potassium 4.5, Chloride 104, Carbon Dioxide 27.0, Anion Gap 7, BUN 30 H, Creatinine 1.24, Est GFR (MDRD) Af Amer 72, Est GFR (MDRD) Non-Af 59 L, BUN/Creatinine Ratio 24.2 H, Glucose 149 H, Calcium 9.2 Imaging Radiology Impression Pelvis X-Ray 02/03/24 13:02 IMPRESSION: Normal x-ray examination of the pelvis and hip. Electronically Signed: Kiel Romero MD at 14:14 EDT , Femur X-Ray 02/03/24 13:30 IMPRESSION: Status post right total hip replacement. There is good alignment. No acute abnormality is seen. Electronically Signed: Kiel Romero MD at 14:15 EDT , Lumbar Spine CT 02/03/24 13:30 IMPRESSION: Multilevel degenerative changes, as described above. Electronically Signed: Kiel Romero MD at 13:52 EDT , Assessment & Plan Assessment/Plan (1) Acute exacerbation of chronic low back pain: PLAN: Plan # Acute on chronic lower back and right leg pain after fall/history of bilateral hip replacements -Seen at [facility] by Lai De Dios PA-C and given patient's inability to stand even for x-rays sent to ED -Lumbar CT no acute process, pelvis and femur x-ray with no acute process -Pain control -PT/OT -Patient reports prior to this he has not fallen recently -Will likely need placement given significant difficulty with ambulation and standing -If no improvement can always consider MRI or repeat imaging however imaging today thus far negative -Given patient's multiple allergies to pain medications, which he confirms he gets significant hives the size of softballs, we will continue the fentanyl as an IV as needed as he tolerated this without hives in the ED thus far. Also appears he was prescribed tramadol on outpatient basis still have this is as po as needed and will schedule Tylenol #Type 2 diabetes mellitus -Glucose checks and sliding scale insulin # History of heart failure preserved ejection fraction chronic/moderate pulmonary hypertension -Listed in patient's history -Last echo in 2019 with EF 55, mild global hypokinesis of left ventricle, unable to assess diastolic dysfunction -Daily weights, fluid restriction # Thrombocytopenia -Mild, has had intermittent bouts of thrombocytopenia in the past of unclear etiology -Repeat in the a.m. # Recent shingles outbreak -Affecting left upper forehead and eye which started 3 weeks ago -Lesions no longer open -Has received prednisone on outpatient basis, has some postherpetic neuralgia -Supportive care, pain control #WANDA -Had been following with Dr. Dillard in pulmonology clinic and supposed to be using CPAP -Last documented settings 06/06/2020 with 9 cm H2O with intermittent compliance #Hx afib -Filling metoprolol on outpatient basis per external fill hx but not presently on anticoagulation -Given fall today would not resume presently either way -If no contraindications may benefit from resumption on outpatient basis if benefits outweigh risk #DVT ppx: Lovenox subcu Zabrina Moncada MD Charges/Coding Visit Charges Inpatient E&M: 29367 Init Hosp L1
[2024-02-03 15:41] VITALS: BP 136/82; PULSE 82; RESP 18; TEMP 35.9; O2SAT 97
--- NOTE | 2024-02-03 16:06 | CHAPLAIN ---
Type of Pastoral Visit _x__ Initial Visit ___ Follow-up Visit ___ On-call Visit ___ General Patient Visit ___ Spiritual Assessment ___ Family Conference ___ Bereavement ___ Rapid Response ___ Code Blue ___ Other (describe below) Pastoral Care Referral From _x__ Patient _x__ Family ___ Nurse ___ Physician ___ Forester Silviculture ___ Reconnaissance Man ___ Other (describe below) Sacrament/Intervention _x__ Active listening ___ Anointing ___ Adventism ___ Bereavement ___ Communion ___ Laura exploration ___ ___ Life review _x__ Prayer ___ Reconciliation ___ Sacrament of Sick _x__ Supportive presence ___ Wedding ___ Other (describe below) Pastoral Comments
[2024-02-03 17:01] VITALS: BMI 37.7
[2024-02-03 17:09] VITALS: BP 129/77; PULSE 89; RESP 20; TEMP 36.4; O2SAT 97
[2024-02-03 18:14] LABS: Bedside Glucose 106 mg/dL (74-106)
[2024-02-03 21:37] VITALS: BP 125/72; PULSE 70
[2024-02-03] MEDS: Acetaminophen 500 MG Tablet 1000 MG PO (21:37)
[2024-02-03] MEDS: Metoprolol Tartrate 25 MG Tablet PO (21:37)
[2024-02-03 21:41] VITALS: BP 125/72; PULSE 70; RESP 18; TEMP 36.6; O2SAT 96
[2024-02-04] VITALS (8 sets, daily range): BP systolic 131–197; BP diastolic 69–91; PULSE 67–79; RESP 16–18; TEMP 36.5–36.8; O2SAT 96–98; BMI 37.9
[2024-02-04] MEDS: Acetaminophen 500 MG Tablet 1000 MG PO ×3 (05:14→21:19)
[2024-02-04] MEDS: traMADol 50 MG Tablet PO ×3 (05:14→23:33)
[2024-02-04 06:03] LABS: Absolute Lymphocyte Count 0.75 X10^3/uL (0.83-4.51); Absolute Neutrophil Count 4.2 X10^3/uL (2.0-7.7); Basophil# 0.02 X10^3/uL; Basophil% 0.3 % (0-1); Eosinophil# 0.22 X10^3/uL; Eosinophils% 3.8 % (0-5); Hematocrit 38.1 % (40-54); Lymphocyte # 0.75 X10^3/ul (0.83-4.51); Mean Corp Hgb Conc 34.1 g/dL (32-36); Mean Corpuscular Hgb 34.6 pg (27.0-32.0); Mean Corpuscular Volume 101.3 fL (80-94); Mean Platelet Vol. 9.2 fl (6.2-12.0); Monocyte# 0.54 X10^3/uL; Monocyte% 9.4 % (0-10); NRBC Flagged by Analyzer 0 % (0-5); Neutrophil # 4.18 X10^3/uL (2.7-7.7); Neutrophil % 72.8 % (47-70); Platelet Count 123 K/mm3 (150-450); RBC Distribution Width CV 14.2 % (11.6-14.6); RBC Distribution Width SD 52.2 fl (35.1-43.9); Red Blood Count 3.76 M/mm3 (4.6-6.2); White Blood Count 5.8 K/mm3 (4.4-11.0)
[2024-02-04 06:48] LABS: Bedside Glucose 133 mg/dL (74-106)
[2024-02-04 07:21] LABS: ALB/GLOB Ratio 1.2 RATIO (0.9-2.4); AST(SGOT) 18 U/L (15-37); Alanine Aminotransfer ALT/SGPT 25 U/L (16-61); Albumin, Serum 3.5 g/dL (3.2-5.0); Alkaline Phosphatase 53 U/L (45-117); Anion Gap 5 (5-15); BUN 24 mg/dL (7-18); BUN/Creat Ratio 26.9 RATIO (10-20); Calcium,Total 9.1 mg/dL (8.5-10.1); Chloride 104 mmol/L (98-107); Creatinine, Serum 0.89 mg/dL (0.70-1.30); EST Glomerular Filtration Rate 86 mL/min (>60); Est Glom Filt Rate - Afr Amer 105 mL/min (>60); Estimated Creatinine Clearance 71.94 ml/min; Globulin 2.8 g/dL (2.2-4.2); Glucose 129 mg/dL (74-106); Potassium 4.6 mmol/L (3.5-5.1); Protein, Total 6.3 g/dL (6.4-8.2); Sodium Level 135 mmol/L (136-145); Thyroid Stim Hormone (TSH) 0.997 uIU/mL (0.358-3.740)
[2024-02-04] MEDS: Enoxaparin 40 MG/0.4 ML Syringe SC (07:54)
[2024-02-04] MEDS: Metoprolol Tartrate 25 MG Tablet PO ×2 (07:54→21:40)
--- NOTE | 2024-02-04 08:52 | PN.HOSP_ITS ---
Reason for Visit Reason for Visit: Diagnoses Other chronic pain (02/03/24) Low back pain (02/03/24) Subjective Subjective Chronically has been having pain in his back that occasionally goes down to his leg on his right down to his knee. Worked with therapy and was a maximum two- person assist. Objective Data Objective Data Vital Signs: Vital Signs Temp Pulse Resp BP Pulse Ox O2 Del Method 36.5 C L 78 16 137/81 H 98 Room Air 02/04/24 08:17 02/04/24 08:21 02/04/24 08:21 02/04/24 08:17 02/04/24 08:21 02/04/24 08:21 Oxygen Delivery Method Room Air Weight: 106.5 kg Body Mass Index (BMI) 37.9 Lab / Micro Data 02/04/24 05:47 02/04/24 05:47 Labs: Laboratory Results - last 24 hr 02/03/24 13:20: WBC 8.9, RBC 3.91 L, Hgb 13.3, Hct 39.2 L, MCV 100.3 H, MCH 34.0 H, MCHC 33.9, RDW Std Deviation 51.5 H, RDW Coeff of Porter 14.3, Plt Count 128 L, MPV 9.3, Immature Gran % (Auto) 0.900, Neut % (Auto) 84.9 H, Lymph % (Auto) 6.3 L, [place] % (Auto) 6.8, Eos % (Auto) 0.6, Baso % (Auto) 0.5, Absolute Neuts (auto) 7.5, Absolute Lymphs (auto) 0.56 L, Nucleated RBC % 0, Sodium 138, Potassium 4.5, Chloride 104, Carbon Dioxide 27.0, Anion Gap 7, BUN 30 H, Creatinine 1.24, Est GFR (MDRD) Af Amer 72, Est GFR (MDRD) Non-Af 59 L, BUN/Creatinine Ratio 24.2 H, Glucose 149 H, Calcium 9.2 02/03/24 17:47: POC Glucose 106 02/04/24 05:47: WBC 5.8, RBC 3.76 L, Hgb 13.0, Hct 38.1 L, MCV 101.3 H, MCH 34.6 H, MCHC 34.1, RDW Std Deviation 52.2 H, RDW Coeff of Porter 14.2, Plt Count 123 L, MPV 9.2, Immature Gran % (Auto) 0.700, Neut % (Auto) 72.8 H, Lymph % (Auto) 13.0 L, [place] % (Auto) 9.4, Eos % (Auto) 3.8, Baso % (Auto) 0.3, Absolute Neuts (auto) 4.2, Absolute Lymphs (auto) 0.75 L, Nucleated RBC % 0, Sodium 135 L, Potassium 4.6, Chloride 104, Carbon Dioxide 26.0, Anion Gap 5, BUN 24 H, Creatinine 0.89, Estim Creat Clear Calc 71.94, Est GFR (MDRD) Af Amer 105, Est GFR (MDRD) Non-Af 86, BUN/Creatinine Ratio 26.9 H, Glucose 129 H, Calcium 9.1, Total Bilirubin 0.90, AST 18, ALT 25, Alkaline Phosphatase 53, Total Protein 6.3 L, Albumin 3.5, Globulin 2.8, Albumin/Globulin Ratio 1.2, TSH 0.997 02/04/24 06:29: POC Glucose 133 H Radiography Diagnostic Testing: Radiology Impression Pelvis X-Ray 02/03/24 13:02 IMPRESSION: Normal x-ray examination of the pelvis and hip. Electronically Signed: Kiel Romero MD at 14:14 EDT , Femur X-Ray 02/03/24 13:30 IMPRESSION: Status post right total hip replacement. There is good alignment. No acute abnormality is seen. Electronically Signed: Kiel Romero MD at 14:15 EDT , Lumbar Spine CT 02/03/24 13:30 IMPRESSION: Multilevel degenerative changes, as described above. Electronically Signed: Kiel Romero MD at 13:52 EDT , Physical Exam Const alert and no apparent distress HEENT head/scalp atraumatic and moist oral mucous membranes Resp normal respiratory effort and no retractions Extremity normal to inspection Neuro Sensorium / Orientation: awake Assessment & Plan Assessment/Plan (1) Acute exacerbation of chronic low back pain: PLAN: Plan Debility * PT OT eval and treat. * CM assistance appreciated. Given the fact the patient was observation as there is no medical necessity for his admission, he was made aware of this by case management and he informed them that he would not be able to afford it. However, patient was a maximum 2 person assist and would not be able to go home safely. Social work social work working on placement but also looking to get Medicaid. Acute on chronic back and right leg pain * lumbar CT negative, pelvic xray, right hip xray negative. * supportive mgmt Chronic conditions * Type 2 diabetes mellitus-Glucose checks and sliding scale insulin * History of heart failure preserved ejection fraction chronic/moderate pulmonary hypertension-Last echo in 2018 with EF 55, mild global hypokinesis of left ventricle, unable to assess diastolic dysfunction. Compensated. * Thrombocytopenia-Mild, has had intermittent bouts of thrombocytopenia in the past of unclear etiology-Repeat in the a.m. * Recent shingles outbreak Affecting left upper forehead and eye which started 3 weeks ago-Lesions no longer open-Has received prednisone on outpatient basis, has some postherpetic neuralgia-Supportive care, pain * WANDA-Had been following with Dr. Dillard in pulmonology clinic and supposed to be using CPAP-Last documented settings 06/06/2020 with 9 cm H2O with intermittent compliance * Hx afib-Filling metoprolol on outpatient basis per external fill hx but not presently on anticoagulation-Given fall today would not resume presently either way-If no contraindications may benefit from resumption on outpatient basis if benefits outweigh risk VTE prophylaxis: enoxparin Charges/Coding Visit Charges Inpatient E&M: 79528 Subs Hosp L2
--- NOTE | 2024-02-04 10:00 | CASEMGMT ---
Social Work SW?to room to meet with patient for initial transition planning/care coordination?assessment.?SW?introduced self and role at [facility].? Pt voices understanding and consents to?assessment.? Pt is A/Ox4 and answers all questions appropriately.?? Care providers, pharmacy, and demographics verified. PCP: Abbie Specialists: [facility]ili Gordon Preferred Pharmacy: [facility] Insurance: Medicare Living Will/HPOA:? no LNOK: Ene Jones Living Arrangements: Pt lives in a one story home with his who assists with bathing and putting shoes and socks on. Pt is independent with other aspects of dressing and is able to ambulate with a walker. Pt has a ramp entrance as he states he can no longer do stairs. Transportation:?pt drives self DME: ? walk in shower with shower chair, cane, walker HHC/SNF: none previous PLAN: SW and pt discussed discharge plan and pt states he is aware that he is not able to move well and he and have decided that he will need an ECF. SW explained Medicare SNF benefit and that Medicare will not cover the cost of SNF. Pt would be private pay at SNF. Pt expresses understanding and states he has the fiances to cover the cost of this. A list of SNF providers including quality and resource use data and consistent with the patient?s preferred geographic region, medical needs, and insurance network were provided from the CarePort Guide. SW provided private pay prices to pt. Pt to review list and SW will follow up for choices. PETER Stoner
[2024-02-04] MEDS: Nystatin Powder 15gm Bottle 1 APPLIC TOPICAL ×2 (10:12→21:20)
[2024-02-04 10:14] LABS: Vitamin B12 581 pg/mL (211-911); Vitamin D,25 Hydroxy 32.6 ng/mL
[2024-02-04] MEDS: Insulin Lispro 100 UNIT/ML INSULN.PEN SC ×2 (11:48→15:58)
[2024-02-04 12:00] LABS: Bedside Glucose 176 mg/dL (74-106)
--- NOTE | 2024-02-04 15:16 | CASEMGMT ---
LAVELLE CM into pt room, asked pt if he has chosen his choices for SNF. Pt present. Pt has not reviewed, handed printed list. Pt states anywhere that the insurance pays for. Discussed with pt and that he is in observation status and will not qualify for SNF paid 100%. Made aware SW has written cost of each facility. PT and state they cannot afford this. They do not have any family who can assist. Noted pt was mod a/max x2 with therapy. Pt and state they will go home. Updated SW.
--- NOTE | 2024-02-04 15:30 | CASEMGMT ---
Social Work RNCM reports pt now saying he cannot afford to private pay at SNF (pt told SW earlier this morning it would not be a problem). SW met with pt and . Discussed finances. Pt unable to pay privately for ECF. Pt Mod - Max A x2 and is unable to care for pt. Pt and agreeable to meet with [facility] to apply for Medicaid. Phone call to Jazmine with [employer]. S will close at 4pm today and not reopen until Wednesday. Application for medicaid will be sent to [facility] at that time. Pt and family instructed to review SNF list and make choices of preferred providers. SW to continue to follow. Pt to remain in hospital until safe dc plan can be established. Physician updated. PETER Stoner
--- NOTE | 2024-02-04 15:40 | CASEMGMT ---
LAVELLE CM in to discuss ALANIZ form with patient. RN CM explained ALANIZ form, patient voiced understanding. Pt signed form and filed in chart. Pt provided with a copy of signed ALANIZ form. Patient had no further questions or concerns at this time.
--- NOTE | 2024-02-04 15:44 | CHAPLAIN ---
Type of Pastoral Visit ___ Initial Visit _x__ Follow-up Visit ___ On-call Visit ___ General Patient Visit ___ Spiritual Assessment ___ Family Conference ___ Bereavement ___ Rapid Response ___ Code Blue ___ Other (describe below) Pastoral Care Referral From _x__ Patient _x_ Family ___ Nurse ___ Physician ___ Driver Material Handler ___ Manager Trading ___ Other (describe below) Sacrament/Intervention _x__ Active listening ___ Anointing ___ Confucianism ___ Bereavement ___ Communion _x__ Laura exploration ___ _x__ Life review _x__ Prayer ___ Reconciliation ___ Sacrament of Sick _x__ Supportive presence ___ Wedding ___ Other (describe below) Pastoral Comments
[2024-02-04 16:11] LABS: Bedside Glucose 161 mg/dL (74-106)
[2024-02-04] MEDS: MELATONIN 3 MG TABLET PO (21:19)
[2024-02-05] VITALS (7 sets, daily range): BP systolic 139–157; BP diastolic 70–89; PULSE 71–80; RESP 16–22; TEMP 36.4–36.9; O2SAT 94–98; BMI 37.6
[2024-02-05] MEDS: Acetaminophen 500 MG Tablet 1000 MG PO ×3 (06:57→21:03)
[2024-02-05 08:15] LABS: Bedside Glucose 141 mg/dL (74-106)
[2024-02-05] MEDS: Metoprolol Tartrate 25 MG Tablet PO ×2 (09:00→21:03)
[2024-02-05] MEDS: Enoxaparin 40 MG/0.4 ML Syringe SC (09:01)
[2024-02-05] MEDS: Nystatin Powder 15gm Bottle 1 APPLIC TOPICAL ×2 (09:02→21:03)
--- NOTE | 2024-02-05 09:41 | PN.HOSP_ITS ---
Reason for Visit Reason for Visit: Diagnoses Other chronic pain (02/03/24) Low back pain (02/03/24) Subjective Subjective Pain 03/16 Objective Data Objective Data Vital Signs: Vital Signs Temp Pulse Resp BP Pulse Ox O2 Del Method 36.4 C L 78 22 H 139/86 H 97 Room Air 02/05/24 08:57 02/05/24 09:00 02/05/24 08:57 02/05/24 09:00 02/05/24 08:57 02/05/24 08:57 Oxygen Delivery Method Room Air Weight: 106.3 kg Body Mass Index (BMI) 37.6 Intake & Output: Intake and Output for Last 24 Hours 02/03/24 02/04/24 02/05/24 23:59 23:59 23:59 Intake Total 840 / 840 400 / 400 Output Total 700 / 700 375 / 375 Balance 140 / 140 25 / 25 Lab / Micro Data 02/04/24 05:47 02/04/24 05:47 Labs: Laboratory Results - last 24 hr 02/04/24 05:47: Vitamin B12 581, Vitamin D 25-Hydroxy 32.6 02/04/24 11:40: POC Glucose 176 H 02/04/24 15:53: POC Glucose 161 H 02/05/24 06:12: POC Glucose 141 H Physical Exam Const alert and no apparent distress Constitutional Narrative: Appears very comfortable and casual despite having 10 out of 10 pain. Resp normal respiratory effort and no retractions Assessment & Plan Assessment/Plan (1) Acute exacerbation of chronic low back pain: PLAN: Plan Debility * PT OT eval and treat. * CM assistance appreciated. Given the fact the patient was observation as there is no medical necessity for his admission, he was made aware of this by case management and he informed them that he would not be able to afford it. However, patient was a maximum 2 person assist and would not be able to go home safely. Social work social work working on placement but also looking to get Medicaid. Acute on chronic back and right leg pain * lumbar CT negative, pelvic xray, right hip xray negative. * supportive mgmt Chronic conditions * Type 2 diabetes mellitus-Glucose checks and sliding scale insulin * History of heart failure preserved ejection fraction chronic/moderate pulmonary hypertension-Last echo in 2019 with EF 55, mild global hypokinesis of left ventricle, unable to assess diastolic dysfunction. Compensated. * Thrombocytopenia-Mild, has had intermittent bouts of thrombocytopenia in the past of unclear etiology-Repeat in the a.m. * Recent shingles outbreak Affecting left upper forehead and eye which started 3 weeks ago-Lesions no longer open-Has received prednisone on outpatient basis, has some postherpetic neuralgia-Supportive care, pain * WANDA-Had been following with Dr. Dillard in pulmonology clinic and supposed to be using CPAP-Last documented settings 06/06/2020 with 9 cm H2O with intermittent compliance * Hx afib-Filling metoprolol on outpatient basis per external fill hx but not presently on anticoagulation-Given fall today would not resume presently either way-If no contraindications may benefit from resumption on outpatient basis if benefits outweigh risk VTE prophylaxis: enoxparin Disposition: Patient require half-way facility. He does not have the financial resources to pay for a SNF so we are trying to get him Medicaid. Charges/Coding Visit Charges Inpatient E&M: 72596 Subs Hosp L1
[2024-02-05 11:03] LABS: Bedside Glucose 139 mg/dL (74-106)
[2024-02-05] MEDS: Insulin Lispro 100 UNIT/ML INSULN.PEN SC ×2 (11:42→16:47)
[2024-02-05] MEDS: traMADol 50 MG Tablet PO (11:48)
[2024-02-05] MEDS: 0.9% Saline Lock 10 ML Syringe IV (11:48)
[2024-02-05 12:02] LABS: Bedside Glucose 182 mg/dL (74-106)
--- NOTE | 2024-02-05 15:50 | CASEMGMT ---
Social Work Met with patient and today for further discussion about patient's finances, specifically regarding nonliquid assets such as life insurance policies. There is an insurance policy in place, which the patient describes as whole though the was unsure whether it is a full term policy. Let patient and know this will be something the [facility] media sales representative will need to discuss. No choices of nursing facilities at this time, as both patient and reporting that just cannot afford anything, though the mentioned that the [facility] seems to be the least expensive. Much supportive listening provided to the patient and the . Patient talkative throughout social work visit, talking about prior outpatient visits with Dk at [facility], recent diagnosis of shingles, and referral to a new pain management doctor/Dr. Fletcher. Patient talked much about pain issues and difficulty managing this through the years. Patient and reflected on their 50+ years of marriage and experiences that they have had together. Near the end of conversation, patient spontaneously asked this singer songwriter if this singer songwriter also saw a man looking through the glass. Patient asked this question in the present tense, and when this singer songwriter indicated not seeing anything like this, the patient pointed to another place in the room where this man was supposedly at. The patient then asked this singer songwriter if this singer songwriter saw the woman in the hallway with a hat pulled assisted over her face, with the pole and dancing around. When patient was asking this singer songwriter these questions, the patient's 's eyes got big appearing concerned. The then voiced that the patient told the yesterday that he was watching a semi fire truck driver through the room. also reports that the patient was acting strangely waving his hands around last evening as well. 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 This singer songwriter explored with the , whether this is something normal for the patient. reports patient has never really presented this way at home. expressed concern whether pain medication may be factoring into this change in mental status. This singer songwriter also observed patient's urine, which was in a container on the counter as dark and concentrated looking to this singer songwriter's eye. This singer songwriter asked the if the look of patient's urine was usual looking for the patient. The only indicated that has been encouraging patient to drink water, but that patient's urine has been smelly at home. This singer songwriter updated patient's nurses Margoth and Sherly, as well as Dr. Lindsay. Plan: Anticipate jail level of care will be needed, though still trying to sort out financial aspect of covering this care as patient is in observation status at the hospital. [employer] media sales representative to work with the family on Wednesday02-07-24 for Medicaid application. Social work will continue to follow and assist. -NANO Hawk, CLOAK ROOM ATTENDANT *This note was generated with [employer] dictation software. It may contain incorrect words, spelling, and punctuation that were not noted in review of the chart prior to signing*
[2024-02-05 19:17] LABS: Bedside Glucose 155 mg/dL (74-106)
[2024-02-05 19:30] LABS: Bacteria 0 SEEN /hpf (None Seen); Mucous, Urine 0 SEEN /hpf (<or=2+); Squamous Epithelial Cells - UA 0 SEEN /hpf (0-5)
[2024-02-05 19:32] LABS: Color, Urine Yellow (Yellow); Glucose, Dipstick Normal (Normal); Ketone-Dipstick Negative (Negative); Leukocyte Esterase-Dipstick Negative /ul (Negative); Nitrite-Dipstick Negative (Negative); Occult Blood-Urine Negative /ul (Negative); Protein-Dipstick 15 mg/dl (Negative); Urine Bilirubin Dipstick Negative (Negative); Urine Clarity Clear (Clear); Urine Urobilinogen Normal (Normal)
[2024-02-05 20:05] LABS: Red Blood Cells-Urine 0-5 SEEN /hpf (0-5); White Blood Cells 0-5 SEEN /hpf (0-5)
[2024-02-06 03:02] VITALS: BP 153/95; PULSE 68; RESP 16; TEMP 36.6; O2SAT 96
[2024-02-06 03:36] VITALS: BMI 37.9
[2024-02-06] MEDS: Acetaminophen 500 MG Tablet 1000 MG PO ×3 (05:04→19:58)
[2024-02-06 08:42] VITALS: PULSE 88
[2024-02-06] MEDS: Metoprolol Tartrate 25 MG Tablet PO ×2 (08:42→19:58)
[2024-02-06] MEDS: Nystatin Powder 15gm Bottle 1 APPLIC TOPICAL ×2 (08:42→19:59)
[2024-02-06] MEDS: Enoxaparin 40 MG/0.4 ML Syringe SC (08:42)
--- NOTE | 2024-02-06 08:47 | PN.HOSP_ITS ---
Reason for Visit Reason for Visit: Diagnoses Other chronic pain (02/03/24) Low back pain (02/03/24) Subjective Subjective Claiming of right knee pain. Patient is at bedside and she states that he looks at his normal baseline. No further confusion or hallucinations. Objective Data Objective Data Vital Signs: Vital Signs Temp Pulse Resp BP Pulse Ox O2 Del Method 36.6 C 88 16 153/95 H 96 Room Air 02/06/24 03:02 02/06/24 08:42 02/06/24 03:02 02/06/24 03:02 02/06/24 03:02 02/06/24 08:38 Oxygen Delivery Method Room Air Weight: 107.1 kg Body Mass Index (BMI) 37.9 Intake & Output: Intake and Output for Last 24 Hours 02/04/24 02/05/24 02/06/24 23:59 23:59 23:59 Intake Total 840 / 840 1950 / 1950 250 / 250 Output Total 700 / 700 975 / 975 200 / 200 Balance 140 / 140 975 / 975 50 / 50 Lab / Micro Data 02/04/24 05:47 02/04/24 05:47 Labs: Laboratory Results - last 24 hr 02/05/24 08:37: POC Glucose 139 H 02/05/24 11:30: POC Glucose 182 H 02/05/24 16:43: POC Glucose 155 H 02/05/24 17:36: Urine Color Yellow, Urine Clarity Clear, Urine pH 5.0, Ur Specific [place] 1.020, Urine Protein 15 H, Urine Glucose (UA) Normal, Urine Ketones Negative, Urine Occult Blood Negative, Urine Nitrite Negative, Urine Bilirubin Negative, Urine Urobilinogen Normal, Ur Leukocyte Esterase Negative, Urine RBC 0-5 SEEN, Urine WBC 0-5 SEEN, Ur Squamous Epith Cells 0 SEEN, Urine Bacteria 0 SEEN, Urine Mucus 0 SEEN Physical Exam Const alert and no apparent distress Resp normal respiratory effort, no retractions, no use of accessory muscles and clear to auscultation bilaterally Cardio regular rate and regular rhythm GI normal to inspection, nondistended, normoactive bowel sounds Extremity Extremity Narrative: Superficial abrasions on right lateral knee. No knee effusion on the right. Assessment & Plan Assessment/Plan (1) Acute exacerbation of chronic low back pain: PLAN: Plan Debility * PT OT eval and treat. * CM assistance appreciated. Given the fact the patient was observation as there is no medical necessity for his admission, he was made aware of this by case management and he informed them that he would not be able to afford it. However, patient was a maximum 2 person assist and would not be able to go home safely. Social work social work working on placement but also looking to get Medicaid. Acute on chronic back and right leg pain * lumbar CT negative, pelvic xray, right hip xray negative. * supportive mgmt Encephalopathy * Personally have not witnessed but was concerned. May have been due to tramadol which has been discontinued. Chronic conditions * Type 2 diabetes mellitus-Glucose checks and sliding scale insulin * History of heart failure preserved ejection fraction chronic/moderate pulmonary hypertension-Last echo in 2019 with EF 55, mild global hypokinesis of left ventricle, unable to assess diastolic dysfunction. Compensated. * Thrombocytopenia-Mild, has had intermittent bouts of thrombocytopenia in the past of unclear etiology-Repeat in the a.m. * Recent shingles outbreak Affecting left upper forehead and eye which started 3 weeks ago-Lesions no longer open-Has received prednisone on outpatient basis, has some postherpetic neuralgia-Supportive care, pain * WANDA-Had been following with Dr. Dillard in pulmonology clinic and supposed to be using CPAP-Last documented settings 06/06/2020 with 9 cm H2O with intermittent compliance * Hx afib-Filling metoprolol on outpatient basis per external fill hx but not presently on anticoagulation-Given fall today would not resume presently either way-If no contraindications may benefit from resumption on outpatient basis if benefits outweigh risk VTE prophylaxis: enoxparin Disposition: Patient require prison facility. He does not have the financial resources to pay for a SNF so we are trying to get him Medicaid. Discussed with the patient's at bedside. Charges/Coding Visit Charges Inpatient E&M: 20572 Subs Hosp L1
[2024-02-06 09:00] VITALS: BP 145/93; PULSE 88; RESP 18; TEMP 36.6; O2SAT 97
[2024-02-06 11:47] LABS: Bedside Glucose 115 mg/dL (74-106)
[2024-02-06] MEDS: Insulin Lispro 100 UNIT/ML INSULN.PEN SC ×2 (12:21→16:25)
[2024-02-06 12:24] LABS: Bedside Glucose 150 mg/dL (74-106)
[2024-02-06 14:43] VITALS: BP 159/92; PULSE 83; RESP 18; TEMP 36.8; O2SAT 96
[2024-02-06 16:37] LABS: Bedside Glucose 152 mg/dL (74-106)
[2024-02-06 19:46] VITALS: BP 143/81; PULSE 88; RESP 18; TEMP 36.9; O2SAT 97
[2024-02-06] MEDS: MELATONIN 3 MG TABLET PO (19:57)
[2024-02-06] MEDS: 0.9% Saline Lock 10 ML Syringe IV (19:57)
[2024-02-06 19:58] VITALS: BP 143/81; PULSE 88
[2024-02-06 22:34] LABS: Bedside Glucose 183 mg/dL (74-106)
[2024-02-07 04:09] VITALS: BMI 37.3
[2024-02-07 04:13] VITALS: BP 143/85; PULSE 74; RESP 16; TEMP 36.7; O2SAT 98
[2024-02-07] MEDS: Acetaminophen 500 MG Tablet 1000 MG PO ×3 (06:06→22:09)
[2024-02-07 06:36] LABS: Bedside Glucose 139 mg/dL (74-106)
[2024-02-07 09:41] VITALS: BP 132/72; PULSE 88; RESP 18; TEMP 36.9; O2SAT 94
[2024-02-07 09:48] VITALS: PULSE 88
[2024-02-07] MEDS: Metoprolol Tartrate 25 MG Tablet PO ×2 (09:48→22:09)
[2024-02-07] MEDS: Nystatin Powder 15gm Bottle 1 APPLIC TOPICAL ×2 (09:49→22:10)
[2024-02-07] MEDS: Enoxaparin 40 MG/0.4 ML Syringe SC (09:49)
[2024-02-07] MEDS: Insulin Lispro 100 UNIT/ML INSULN.PEN SC ×2 (11:35→16:27)
[2024-02-07 11:55] LABS: Bedside Glucose 162 mg/dL (74-106)
--- NOTE | 2024-02-07 13:17 | PN.HOSP_ITS ---
Reason for Visit Reason for Visit: Diagnoses Other chronic pain (02/03/24) Low back pain (02/03/24) Objective Data Objective Data Vital Signs: Vital Signs Temp Pulse Resp BP Pulse Ox O2 Del Method 98.4 F 88 18 132/72 H 94 Room Air 02/07/24 09:41 02/07/24 09:48 02/07/24 09:41 02/07/24 09:41 02/07/24 09:41 02/07/24 09:41 Oxygen Delivery Method Room Air Weight: 232 lb 5.875 oz Body Mass Index (BMI) 37.3 Intake & Output: Intake and Output for Last 24 Hours 02/05/24 02/06/24 02/07/24 23:59 23:59 23:59 Intake Total 1950 / 1950 490 / 490 Output Total 975 / 975 850 / 850 750 / 750 Balance 975 / 975 -360 / -360 -750 / -750 Lab / Micro Data 02/04/24 05:47 02/04/24 05:47 Labs: Laboratory Results - last 24 hr 02/06/24 16:18: POC Glucose 152 H 02/06/24 19:54: POC Glucose 183 H 02/07/24 06:05: POC Glucose 139 H 02/07/24 11:33: POC Glucose 162 H Micro: Microbiology 02/05/24 17:36 Urine, Clean Catch Urine Culture - Final Mixed Gram Positive Organisms Physical Exam Narrative Seen and examined. Patient on recliner. Very debilitated. Complains severe pain over the right hip and knee joint. He also has chronic back pain but not very painful now. Physical exam General: Alert, Oriented x3, Cooperative. Obesity grade 237.5 kg/m? HEENT: Atraumatic, PERRLA, EOMI, Normocephalic Oral: No Gingival or Mucosal Lesions/ Ulcerations Neck: Supple, No JVD, Negative Carotid Bruits Chest wall/Lungs: Air entry diminished in bilateral lung bases. No crepitation/rhonchi Cardiovascular: Regular rate, Regular Rhythm, Normal S1, Normal S2, No M/G/R Abdomen: Bowel Sounds Present, Soft, Non Tender, Non-Distended : No dysuria. No renal angle tenderness. No suprapubic tenderness. Extremities: No edema, Capillary Refill Less than 3 Seconds Skin: No rashes, No breakdown Musculoskeletal: Tenderness present around right hip and knee. K-pad applied. ROM restricted over hip and knee joints because of pain and spasm Neurological: Cranial nerves II-XII grossly intact, DTR 2+/4. No acute focal neurological deficit. Psych/Mental Status: Flat affect Assessment & Plan Assessment/Plan (1) Acute exacerbation of chronic low back pain: PLAN: Plan Acute debility compromising ADL * PT OT eval and treat. * CM assistance appreciated. Given the fact the patient was observation as there is no medical necessity for his admission, he was made aware of this by case management and he informed them that he would not be able to afford it. However, patient was a maximum 2 person assist and would not be able to go home safely. Social work social work working on placement but also looking to get Medicaid. Acute on chronic right hip pain, knee and back pain * lumbar CT negative, pelvic xray, right hip xray negative. * supportive mgmt Chronic mild cognitive impairment/early dementia * Personally have not witnessed but was concerned. May have been due to tramadol which has been discontinued. * 02/06: Patient not showing any acute signs of confusion or change in mental status, inattention feature suggestive of acute encephalopathy or delirium Chronic conditions * Type 2 diabetes mellitus-Glucose checks and sliding scale insulin * History of heart failure preserved ejection fraction chronic/moderate pulmonary hypertension-Last echo in 2018 with EF 55, mild global hypokinesis of left ventricle, unable to assess diastolic dysfunction. Compensated. * Thrombocytopenia-Mild, has had intermittent bouts of thrombocytopenia in the past of unclear etiology-Repeat in the a.m. * Recent shingles outbreak Affecting left upper forehead and eye which started 3 weeks ago-Lesions no longer open-Has received prednisone on outpatient basis, has some postherpetic neuralgia-Supportive care, pain * WANDA-Had been following with Dr. Dillard in pulmonology clinic and supposed to be using CPAP-Last documented settings 06/06/2020 with 9 cm H2O with intermittent compliance * Hx afib-Filling metoprolol on outpatient basis per external fill hx but not presently on anticoagulation-Given fall today would not resume presently either way-If no contraindications may benefit from resumption on outpatient basis if benefits outweigh risk VTE prophylaxis: enoxparin Disposition: Patient require chcf facility. He does not have the financial resources to pay for a SNF so we are trying to get him Medicaid. Discussed with the patient's at bedside. Charges/Coding Visit Charges Inpatient E&M: 50726 Subs Hosp L2
[2024-02-07 15:01] VITALS: BP 143/91; PULSE 76; RESP 18; TEMP 36.9; O2SAT 96
[2024-02-07 16:48] LABS: Bedside Glucose 211 mg/dL (74-106)
[2024-02-07 22:06] VITALS: BP 145/86; PULSE 101; RESP 16; TEMP 36.8; O2SAT 96
[2024-02-07 22:09] VITALS: PULSE 101
[2024-02-07] MEDS: MELATONIN 3 MG TABLET PO (22:39)
[2024-02-08] VITALS (7 sets, daily range): BP systolic 118–153; BP diastolic 68–98; PULSE 77–88; RESP 12–16; TEMP 36.8–37.5; O2SAT 95–97
[2024-02-08] MEDS: Nortriptyline 25 MG Capsule PO ×3 (01:06→21:24)
[2024-02-08] MEDS: Acetaminophen 500 MG Tablet 1000 MG PO ×3 (06:50→21:16)
[2024-02-08 07:12] LABS: Bedside Glucose 141 mg/dL (74-106)
[2024-02-08] MEDS: Metoprolol Tartrate 25 MG Tablet PO ×2 (09:17→21:16)
[2024-02-08] MEDS: Nystatin Powder 15gm Bottle 1 APPLIC TOPICAL ×2 (09:18→21:16)
[2024-02-08] MEDS: Enoxaparin 40 MG/0.4 ML Syringe SC (09:18)
[2024-02-08] MEDS: Insulin Lispro 100 UNIT/ML INSULN.PEN SC ×2 (12:17→18:05)
[2024-02-08 12:36] LABS: Bedside Glucose 159 mg/dL (74-106)
--- NOTE | 2024-02-08 15:01 | CASEMGMT ---
Discharge Planning A list of?HH providers including quality and resource use data and consistent with the patient's preferred geographic region, medical needs, and insurance network was created in CarePort Guide.? This list was provided to the RN EMILY. Ana Rosales, Discharge Planning Asst.
[2024-02-08] MEDS: Pantoprazole Sodium 40 MG Tablet PO (15:20)
[2024-02-08] MEDS: Baclofen 10 MG Tablet PO ×2 (15:20→21:23)
--- NOTE | 2024-02-08 15:25 | CASEMGMT ---
LAVELLE DIAZ notified from [facility] that pt declined to speak with her regarding medicaid and pt is wishing to go home. LAVELLE DIAZ into pt room, pt present, pt states he does want to go home. He states if [facility] covers [facility], he is interested. Provided pt with a list of [facility] agencies created by dc assistant professor nurse education. Pt states he only wants [facility] because he has had other agencies and I know more than they do. Pt is agreeable to this. TC to intake at [facility], left with referral information. Will await decision to accept.
[2024-02-08] MEDS: 0.9% Saline Lock 10 ML Syringe IV ×2 (15:37→21:20)
[2024-02-08] MEDS: dexAMETHasone 4 MG/ML Vial IV ×2 (15:37→21:19)
--- NOTE | 2024-02-08 15:48 | CASEMGMT ---
Social Work- SW spoke with [facility] representatives [facility] who reports the pt does have additional resources that the family is unwilling to utilize. Pt family does not have liquid resources/funds to pay for SNF. Pt family is choosing to take pt home with HHC. RNCM and physician advised. PETER Donohue
--- NOTE | 2024-02-08 16:21 | CHAPLAIN ---
Type of Pastoral Visit ___ Initial Visit ___ Follow-up Visit ___ On-call Visit ___ General Patient Visit ___ Spiritual Assessment ___ Family Conference ___ Bereavement ___ Rapid Response ___ Code Blue ___ Other (describe below) Pastoral Care Referral From ___ Patient ___ Family ___ Nurse ___ Physician ___ Field Services Director ___ Dump Motorman ___ Other (describe below) Sacrament/Intervention ___ Active listening ___ Anointing ___ Baptist ___ Bereavement ___ Communion ___ Laura exploration ___ ___ Life review ___ Prayer ___ Reconciliation ___ Sacrament of Sick ___ Supportive presence ___ Wedding ___ Other (describe below) Pastoral Comments spouse of patient was in the hallway; spoke to spouse to ask how pt and how she is doing; spouse speaks of uncertainty about when discharge will happen and under what plan; spouse admits to being tired and making all these trips to the hospital; spouse asks a question and this legal document specialist got an answer and then went to room to report it; at time of stop in room, the patient was being attended by a staff person so a visit could not continue at that time
--- NOTE | 2024-02-08 16:42 | PN.HOSP_ITS ---
Reason for Visit Reason for Visit: Diagnoses Other chronic pain (02/03/24) Low back pain (02/03/24) Objective Data Objective Data Vital Signs: Vital Signs Temp Pulse Resp BP Pulse Ox O2 Del Method 98.5 F 78 12 118/78 96 Room Air 02/08/24 16:00 02/08/24 16:00 02/08/24 16:00 02/08/24 16:00 02/08/24 16:00 02/08/24 16:00 Oxygen Delivery Method Room Air Weight: 232 lb 5.875 oz Body Mass Index (BMI) 37.3 Intake & Output: Intake and Output for Last 24 Hours 02/06/24 02/07/24 02/08/24 23:59 23:59 23:59 Intake Total 490 / 490 480 / 480 300 / 300 Output Total 850 / 850 750 / 950 700 / 700 Balance -360 / -360 -270 / -470 -400 / -400 Lab / Micro Data 02/04/24 05:47 02/04/24 05:47 Labs: Laboratory Results - last 24 hr 02/07/24 16:26: POC Glucose 211 H 02/08/24 06:48: POC Glucose 141 H 02/08/24 12:16: POC Glucose 159 H Micro: Microbiology 02/05/24 17:36 Urine, Clean Catch Urine Culture - Final Mixed Gram Positive Organisms Physical Exam Narrative Seen and examined. Patient is very painful over right hip and knee joint. He is tearful. Patient is allergic to multiple opioid medications including codeine, hydrocodone and morphine and gabapentin Patient on recliner. Very debilitated. Complains severe pain over the right hip and knee joint. He also has chronic back pain but not very painful now. Physical exam General: Alert, Oriented x3, Cooperative. Obesity grade 237.5 kg/m? HEENT: Atraumatic, PERRLA, EOMI, Normocephalic Oral: No Gingival or Mucosal Lesions/ Ulcerations Neck: Supple, No JVD, Negative Carotid Bruits Chest wall/Lungs: Air entry diminished in bilateral lung bases. No crepitation/rhonchi Cardiovascular: Regular rate, Regular Rhythm, Normal S1, Normal S2, No M/G/R Abdomen: Bowel Sounds Present, Soft, Non Tender, Non-Distended : No dysuria. No renal angle tenderness. No suprapubic tenderness. Extremities: No edema, Capillary Refill Less than 3 Seconds Skin: No rashes, No breakdown Musculoskeletal: Severe tenderness present around right hip and knee with muscle spasm. K-pad applied. ROM restricted over hip and knee joints because of pain and spasm Neurological: Cranial nerves II-XII grossly intact, DTR 2+/4. No acute focal neurological deficit. Psych/Mental Status: Flat affect Assessment & Plan Assessment/Plan (1) Acute exacerbation of chronic low back pain: PLAN: Plan Acute debility compromising ADL * PT OT eval and treat. * CM assistance appreciated. Given the fact the patient was observation as there is no medical necessity for his admission, he was made aware of this by case management and he informed them that he would not be able to afford it. However, patient was a maximum 2 person assist and would not be able to go home safely. Social work social work working on placement but also looking to get Medicaid. 02/07: Patient had mild benefit with nortriptyline therefore nortriptyline dose increased to 25 twice daily. Started on IV dexamethasone 4 mg every 8 hourly and baclofen as muscle relaxant. Pain management consult requested with Dr. Jason and I called him. Acute on chronic right hip pain, knee and back pain * lumbar CT negative, pelvic xray, right hip xray negative. Lumbar spine CT shows multilevel disc degeneration and facet arthritis, severe at L5-S1. Patient does not complain of much pain over back. * Right hip x-ray had hip replacement with good alignment. No fracture or dislocation. * supportive mgmt Chronic mild cognitive impairment/early dementia * Personally have not witnessed but was concerned. May have been due to tramadol which has been discontinued. * 02/06: Patient not showing any acute signs of confusion or change in mental status, inattention feature suggestive of acute encephalopathy or delirium Chronic conditions * Type 2 diabetes mellitus-Glucose checks and sliding scale insulin * History of heart failure preserved ejection fraction chronic/moderate pulmonary hypertension-Last echo in 2019 with EF 55, mild global hypokinesis of left ventricle, unable to assess diastolic dysfunction. Compensated. * Thrombocytopenia-Mild, has had intermittent bouts of thrombocytopenia in the past of unclear etiology-Repeat in the a.m. * Recent shingles outbreak Affecting left upper forehead and eye which started 3 weeks ago-Lesions no longer open-Has received prednisone on outpatient basis, has some postherpetic neuralgia-Supportive care, pain * WANDA-Had been following with Dr. Dillard in pulmonology clinic and supposed to be using CPAP-Last documented settings 06/06/2020 with 9 cm H2O with intermittent compliance * Hx afib-Filling metoprolol on outpatient basis per external fill hx but not presently on anticoagulation-Given fall today would not resume presently either way-If no contraindications may benefit from resumption on outpatient basis if benefits outweigh risk VTE prophylaxis: enoxparin Disposition: Patient require jail facility. He does not have the financial resources to pay for a SNF so we are trying to get him Medicaid. Discussed with the patient's at bedside. Charges/Coding Visit Charges Inpatient E&M: 18933 Subs Hosp L2
[2024-02-08 17:38] LABS: Bedside Glucose 168 mg/dL (74-106)
--- NOTE | 2024-02-08 17:46 | CON.PCM_ITS ---
Assessment & Plan Assessment/Plan (1) Acute exacerbation of chronic low back pain: (2) Lumbosacral spondylosis with radiculopathy: (3) Hip pain: QUALIFIERS: Laterality: right Qualified Code(s): M25.551 - Pain in right hip (4) Osteoarthritis of right knee: QUALIFIERS: Osteoarthritis type: primary Qualified Code(s): M 17.11 - Unilateral primary osteoarthritis, right knee PLAN: Plan Right hip x-ray had hip replacement with good alignment. No fracture or dislocation. Lumbar CT scan: Multilevel degenerative changes including multilevel neural foraminal stenosis, including right L3-4 and L4-5 levels. Due to his significant allergies including multiple opioids, gabapentin and naproxen. There are significant limitations in the types of medications that can be used. He has no allergies to synthetic opioids it appears, so I will trial Butrans patch 5mcg. Avoid nsaids due to allergies and age related kidney concerns. A1C: 6.0 -He tried tramadol recently and stated it did not help much. -He is been started on nortriptyline, which is assisted with his sleep. I would not consider starting higher dose tramadol nor SNRIs due to serotonin syndrome risk. -Continue baclofen. -Trial butrans patch 5mcg -Given the neuropathic nature of his pain and MRI findings consistent with multilevel degenerative changes and neuroforaminal stenosis on the right. I will plan for a right-sided L3-4 and L4-5 TFESI. -I will order right knee x-ray to evaluate for osteoarthritis: demonstrated severe OA -Right hip x-ray did not show any fractures or abnormalities relating to his replacement. Some of his pain may be however chronic pain related to his hip replacement. -He also appears to have some degree of sacroiliitis on each side as well. -Consider right Si injection in the future -Consider right knee injection in the future -PLT count is low, but last 120s, which is still safe for DONALD -On lovenox 40mg prophylaxis: will need to be held 12 hours prior to injection -NPO midnight for sedation HPI Consult Data Date of Consult: 02/08/24 HPI Narrative Reason for Consultation: Back, right lower extremity pain HPI Narrative: JOSE ANGEL BLANCHARD, is a 83 M who presents with several month history of right lower extremity pain. He describes hip pain and knee pain in the RLE. The pain is burning in nature and is mostly the right buttock, hip, anterior thigh and knee. He has a replacement in the right hip. Has many allergies to opioid medications (natural opioids). Also has tried tramadol without significant improvement he states. He was seen by Dr. North whom he states was planning to perform a lower back injection, but he is unsure exactly what procedure this was. This was delayed in the setting of his recent shingles outbreak 3 weeks ago. He has allergy to naproxen, sertraline. He has been started on nortriptyline, which has helped with sleep he states. He has been taking dexamethasone 4 mg IV q.8, baclofen, 10 mg t.i.d. Tylenol 1000 mg Q 8. A1C: 6.0. [facility] Medical History (Updated 02/08/24 @ 21:[address] 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) use of anticoagulants Osteoarthritis Chronic pain disorder Diabetes type 2, controlled Decubitus ulcer of right buttock, stage 2 Home Medications ?Medication ?Instructions ?Recorded ?Last Taken ?Type metformin 500 mg tablet 500 mg PO BID diabetes 05/20/18 06/03/19 History multivitamin 1 tab PO DAILY 02/03/24 Unknown History nortriptyline 50 mg capsule 50 mg PO QHS 02/03/24 Unknown History Allergy/AdvReac Type Severity Reaction Status Date / Time naproxen (From Naprosyn) Allergy Unknown Hives Verified 02/03/24 12:25 codeine Allergy Hives Verified 02/03/24 12:25 gabapentin Allergy Hives Verified 02/03/24 12:25 hydrocodone (From Vicodin) Allergy Hives Verified 02/03/24 12:25 levofloxacin (From Levaquin) Allergy Hives Verified 02/03/24 12:25 lisinopril Allergy Hives Verified 02/03/24 12:25 morphine Allergy Hives Verified 02/03/24 12:25 sertraline (From Zoloft) Allergy Hives Verified 02/03/24 12:25 simvastatin (From Zocor) Allergy Hives Verified 02/03/24 12:25 sulfamethoxazole Allergy Hives Verified 02/03/24 12:25 Surgical History History of right and left heart catheterization (02/14/19) History of total replacement of both hip joints Social History household members: spouse Smoking Status: Former smoker Tobacco: How many years used: 5 how long ago did patient quit smokin alcohol intake: never substance use type: does not use ROS ROS Narrative General: Denies fever/chills HENT: Denies headache, denies stuffy nose, denies sore throat EYES: Has had some intermittent left eye blurry vision with his shingles Resp: Denies cough, denies shortness of breath Cardiac: Denies chest pain GI: Denies abdominal pain, denies changes in bowel, denies nausea/vomiting : Denies changes in urination Extremity: Denies swelling MSK: Denies weakness, painful in lower back and into right leg Neuro: Denies any numbness/tingling Heme: Has some scrapes from fall Skin: Right arm wrapped due to scrapes from fall Psychiatric: No complaints voiced Physical Exam Narrative Physical exam General: Alert, Oriented x3, Cooperative. HEENT: Atraumatic, PERRLA, EOMI, Normocephalic Chest wall/Lungs: Breathing is unlabored Back: Tenderness over right lower back. Pain over the right SI joint. Pain worsened with fabers, compression. Unable to perform yoemans. SLR + on right. Right hip: pain with provocative maneuvers. ROM limited Right knee: pain with palpation and ROM. Skin: Some skin tears noted Neurological: DTR 2+/4. No acute focal neurological deficit. Psych/Mental Status: Flat affect Lab / Micro Data 02/04/24 05:47 02/04/24 05:47 Labs: Laboratory Results - last 24 hr 02/08/24 06:48: POC Glucose 141 H 02/08/24 12:16: POC Glucose 159 H 02/08/24 17:11: POC Glucose 168 H
--- NOTE | 2024-02-08 18:00 | RAD_ITS ---
INDICATION: pain EXAMINATION/TECHNIQUE: X-RAY - RIGHT XR Knee 3 Views COMPARISON: None. FINDINGS: No acute fracture or malalignment. Severe, lateral compartment predominant, tricompartmental joint space narrowing and osteophytosis. No joint effusion. The soft tissues are unremarkable. RAD/Knee 3 Views IMPRESSION: No acute abnormalities. Severe, lateral compartment predominant, tricompartmental degenerative arthrosis of the knee. Electronically Signed: Vladislav Johnson MD at 19:16 EDT ,
[2024-02-08] MEDS: Buprenorphine 5 MCG PATCH.TDWK 1 PATCH TD (18:48)
--- NOTE | 2024-02-08 18:48 | NURSING ---
This nurse verified Antonia ibarra with [facility] - would not scan.
[2024-02-08] MEDS: Senna/Docusate Sodium 1 Tablet 2 TABLET PO (21:19)
[2024-02-09] VITALS (8 sets, daily range): BP systolic 128–148; BP diastolic 60–89; PULSE 73–95; RESP 16–18; TEMP 36.4–36.9; O2SAT 96–100; BMI 37.3
[2024-02-09] MEDS: 0.9% Saline Lock 10 ML Syringe IV ×2 (05:49→21:37)
[2024-02-09] MEDS: Baclofen 10 MG Tablet PO ×3 (05:49→21:37)
[2024-02-09] MEDS: Acetaminophen 500 MG Tablet 1000 MG PO ×3 (05:49→21:38)
[2024-02-09] MEDS: dexAMETHasone 4 MG/ML Vial IV ×3 (05:49→21:37)
[2024-02-09] MEDS: Insulin Lispro 100 UNIT/ML INSULN.PEN SC ×2 (05:51→18:21)
[2024-02-09 06:13] LABS: Bedside Glucose 164 mg/dL (74-106)
[2024-02-09 07:25] LABS: Anion Gap 7 (5-15); BUN 21 mg/dL (7-18); BUN/Creat Ratio 27.7 RATIO (10-20); Calcium,Total 9.6 mg/dL (8.5-10.1); Chloride 102 mmol/L (98-107); Creatinine, Serum 0.76 mg/dL (0.70-1.30); EST Glomerular Filtration Rate 104 mL/min (>60); Est Glom Filt Rate - Afr Amer 126 mL/min (>60); Estimated Creatinine Clearance 79.52 ml/min; Glucose 174 mg/dL (74-106); Potassium 4.3 mmol/L (3.5-5.1); Sodium Level 134 mmol/L (136-145)
[2024-02-09 07:28] LABS: Absolute Lymphocyte Count 0.53 X10^3/uL (0.83-4.51); Absolute Neutrophil Count 2.6 X10^3/uL (2.0-7.7); Basophil# 0.02 X10^3/uL; Basophil% 0.6 % (0-1); Hematocrit 39.5 % (40-54); Hemoglobin 13.6 g/dL (13.0-16.5); Lymphocyte # 0.53 X10^3/ul (0.83-4.51); Lymphocyte % 15.5 % (19-41); Mean Corp Hgb Conc 34.4 g/dL (32-36); Mean Corpuscular Volume 98.8 fL (80-94); Mean Platelet Vol. 9.5 fl (6.2-12.0); Monocyte# 0.26 X10^3/uL; Monocyte% 7.6 % (0-10); NRBC Flagged by Analyzer 0 % (0-5); Neutrophil # 2.58 X10^3/uL (2.7-7.7); Neutrophil % 75.1 % (47-70); POSITIVE DIFFERENTIAL YES; Platelet Count 172 K/mm3 (150-450); RBC Distribution Width SD 51.1 fl (35.1-43.9); White Blood Count 3.4 K/mm3 (4.4-11.0)
[2024-02-09] MEDS: Senna/Docusate Sodium 1 Tablet 2 TABLET PO ×2 (09:10→21:37)
[2024-02-09] MEDS: Pantoprazole Sodium 40 MG Tablet PO (09:10)
[2024-02-09] MEDS: Nortriptyline 25 MG Capsule PO ×2 (09:11→21:38)
[2024-02-09] MEDS: Nystatin Powder 15gm Bottle 1 APPLIC TOPICAL ×2 (09:11→21:38)
[2024-02-09] MEDS: Metoprolol Tartrate 25 MG Tablet PO ×2 (09:11→21:37)
--- NOTE | 2024-02-09 10:59 | CASEMGMT ---
Late entry for 02/08/24- Received tc back from Tammy at [facility], they are able to accept pt.
[2024-02-09 13:02] LABS: Bedside Glucose 233 mg/dL (74-106)
[2024-02-09] MEDS: Lactated Ringers 1,000 ML 15 ML IV (13:03)
--- NOTE | 2024-02-09 13:36 | RAD_ITS ---
HISTORY: BLOCK. TECHNIQUE: Lumbar spine 2 spot images. COMPARISON: XR 01/06/2024. FINDINGS: ABDOMEN: Needle projected over the the L3-4 and then L4-5 levels. FLUOROSCOPY TIME: 30.4 seconds. RADIATION DOSE: 15.56 mGy. RAD/Lumbar Spine 2 or 3 Views IMPRESSION: Image guidance for nerve block. Electronically Signed: Nubia Michaud MD at 14:29 EDT ,
[2024-02-09] MEDS: Triamcinolone Acetonide 40 MG/ML Vial (13:50)
[2024-02-09] MEDS: Lidocaine 1% (5 ml sdv) 5 ML Vial (13:50)
--- NOTE | 2024-02-09 14:21 | SUR.PHASEII ---
Report given to Bell on [facility]
--- NOTE | 2024-02-09 15:35 | PN.HOSP_ITS ---
Reason for Visit Reason for Visit: Diagnoses Other chronic pain (02/09/24) Unilateral primary osteoarthritis, right knee (02/09/24) Pain in right hip (02/09/24) Other spondylosis with radiculopathy, lumbosacral region (02/09/24) Low back pain (02/09/24) Objective Data Objective Data Vital Signs: Vital Signs Temp Pulse Resp BP Pulse Ox O2 Del Method 98.5 F 76 18 148/82 H 96 Room Air 02/09/24 14:30 02/09/24 14:30 02/09/24 14:30 02/09/24 14:30 02/09/24 14:30 02/09/24 15:14 Oxygen Delivery Method Room Air Weight: 231 lb 14.821 oz Body Mass Index (BMI) 37.3 Intake & Output: Intake and Output for Last 24 Hours 02/07/24 02/08/24 02/09/24 23:59 23:59 23:59 Intake Total 480 / 480 990 / 990 150 / 150 Output Total 750 / 950 1850 / 1850 400 / 400 Balance -270 / -470 -860 / -860 -250 / -250 Lab / Micro Data 02/09/24 06:10 02/09/24 06:10 Labs: Laboratory Results - last 24 hr 02/08/24 17:11: POC Glucose 168 H 02/09/24 05:46: POC Glucose 164 H 02/09/24 06:10: WBC 3.4 L, RBC 4.00 L, Hgb 13.6, Hct 39.5 L, MCV 98.8 H, MCH 34.0 H, MCHC 34.4, RDW Std Deviation 51.1 H, RDW Coeff of Porter 14.0, Plt Count 172, MPV 9.5, Immature Gran % (Auto) 1.200 H, Neut % (Auto) 75.1 H, Lymph % (Auto) 15.5 L, Howell % (Auto) 7.6, Eos % (Auto) 0.0, Baso % (Auto) 0.6, Absolute Neuts (auto) 2.6, Absolute Lymphs (auto) 0.53 L, Nucleated RBC % 0, Sodium 134 L , Potassium 4.3, Chloride 102, Carbon Dioxide 25.0, Anion Gap 7, BUN 21 H, Creatinine 0.76, Estim Creat Clear Calc 79.52, Est GFR (MDRD) Af Amer 126, Est GFR (MDRD) Non-Af 104, BUN/Creatinine Ratio 27.7 H, Glucose 174 H, Calcium 9.6 02/09/24 12:38: POC Glucose 233 H Micro: Microbiology 02/05/24 17:36 Urine, Clean Catch Urine Culture - Final Mixed Gram Positive Organisms Radiography Diagnostic Testing: Radiology Impression Knee X-Ray 02/08/24 18:00 IMPRESSION: No acute abnormalities. Severe, lateral compartment predominant, tricompartmental degenerative arthrosis of the knee. Electronically Signed: Vladislav Johnson MD at 19:16 EDT , Lumbar Spine X-Ray 02/09/24 13:36 IMPRESSION: Image guidance for nerve block. Electronically Signed: Nubia Michaud MD at 14:29 EDT , Physical Exam Narrative Seen and examined. Patient was put on buprenorphine patch by pain management Dr. Jason. He was evaluated yesterday and plan for lumbar spine epidural injection tomorrow AM. Right hip and knee still painful but better than yesterday. Patient is allergic to multiple opioid medications including codeine, hydrocodone and morphine and gabapentin Patient on recliner. Very debilitated. Physical exam General: Alert, Oriented x3, Cooperative. Obesity grade 237.5 kg/m? HEENT: Atraumatic, PERRLA, EOMI, Normocephalic Oral: No Gingival or Mucosal Lesions/ Ulcerations Neck: Supple, No JVD, Negative Carotid Bruits Chest wall/Lungs: Air entry diminished in bilateral lung bases. No crepitation/rhonchi Cardiovascular: Regular rate, Regular Rhythm, Normal S1, Normal S2, No M/G/R Abdomen: Bowel Sounds Present, Soft, Non Tender, Non-Distended : No dysuria. No renal angle tenderness. No suprapubic tenderness. Extremities: No edema, Capillary Refill Less than 3 Seconds Skin: No rashes, No breakdown Musculoskeletal: Severe tenderness present around right hip and knee. Muscle spasm better. K-pad applied. ROM restricted over hip and knee joints because of pain and spasm Neurological: Cranial nerves II-XII grossly intact, DTR 2+/4. No acute focal neurological deficit. Psych/Mental Status: Flat affect Assessment & Plan Assessment/Plan (1) Acute exacerbation of chronic low back pain: PLAN: Plan Acute debility compromising ADL * PT OT eval and treat. * CM assistance appreciated. Given the fact the patient was observation as there is no medical necessity for his admission, he was made aware of this by case management and he informed them that he would not be able to afford it. However, patient was a maximum 2 person assist and would not be able to go home safely. Social work social work working on placement but also looking to get Medicaid. 02/07: Patient had mild benefit with nortriptyline therefore nortriptyline dose increased to 25 twice daily. Started on IV dexamethasone 4 mg every 8 hourly and baclofen as muscle relaxant. Pain management consult requested with Dr. Jason and I called him. 02/08: Patient on baclofen, nortriptyline, Tylenol and dexamethasone. Buprenorphine patch was ordered yesterday by pain management doctor. N.p.o. past midnight today and plan for right sided L3-4 and L4 5 injection. Right knee x-ray shows severe lateral compartment predominant tricompartmental degenerative arthrosis of the knee. I discussed with the patient and nursing staff. Acute on chronic right hip pain, knee and back pain * lumbar CT negative, pelvic xray, right hip xray negative. Lumbar spine CT shows multilevel disc degeneration and facet arthritis, severe at L5-S1. Patient does not complain of much pain over back. * Right hip x-ray had hip replacement with good alignment. No fracture or dislocation. * supportive mgmt Chronic mild cognitive impairment/early dementia * Personally have not witnessed but was concerned. May have been due to tramadol which has been discontinued. * 02/06: Patient not showing any acute signs of confusion or change in mental status, inattention feature suggestive of acute encephalopathy or delirium Chronic conditions * Type 2 diabetes mellitus-Glucose checks and sliding scale insulin * History of heart failure preserved ejection fraction chronic/moderate pulmonary hypertension-Last echo in 2019 with EF 55, mild global hypokinesis of left ventricle, unable to assess diastolic dysfunction. Compensated. * Thrombocytopenia-Mild, has had intermittent bouts of thrombocytopenia in the past of unclear etiology-Repeat in the a.m. * Recent shingles outbreak Affecting left upper forehead and eye which started 3 weeks ago-Lesions no longer open-Has received prednisone on outpatient basis, has some postherpetic neuralgia-Supportive care, pain * WANDA-Had been following with Dr. Dillard in pulmonology clinic and supposed to be using CPAP-Last documented settings 06/06/2020 with 9 cm H2O with intermittent compliance * Hx afib-Filling metoprolol on outpatient basis per external fill hx but not presently on anticoagulation-Given fall today would not resume presently either way-If no contraindications may benefit from resumption on outpatient basis if benefits outweigh risk VTE prophylaxis: enoxparin Disposition: Patient require jail facility. He does not have the financial resources to pay for a SNF so we are trying to get him Medicaid. Discussed with the patient's at bedside. Charges/Coding Visit Charges Inpatient E&M: 27377 Subs Hosp L2
--- NOTE | 2024-02-09 16:08 | CHAPLAIN ---
Type of Pastoral Visit ___ Initial Visit _x__ Follow-up Visit ___ On-call Visit ___ General Patient Visit ___ Spiritual Assessment ___ Family Conference ___ Bereavement ___ Rapid Response ___ Code Blue ___ Other (describe below) Pastoral Care Referral From _x__ Patient _x__ Family ___ Nurse ___ Physician ___ Forest Manager ___ Compressor Station Engineer ___ Other (describe below) Sacrament/Intervention _x__ Active listening ___ Anointing ___ Sikhism ___ Bereavement ___ Communion _x__ Laura exploration ___ ___ Life review _x__ Prayer ___ Reconciliation ___ Sacrament of Sick _x__ Supportive presence ___ Wedding ___ Other (describe below) Pastoral Comments patient is tearful as he describes the support of his and his yazdanism family; pt had a procedure done and pain patches applied all today so he is hopeful that relief will come; pt goal is still to go home; pt is talkative today and welcomes more prayer and time to express his feelings
--- NOTE | 2024-02-09 16:18 | OP.PCM_ITS ---
Report of Operation Date of Procedure: 02/09/24 Pre-Operative Diagnosis: Lumbar radiculopathy Post-Operative Diagnosis: Lumbar radiculopathy Surgery/Procedure Performed:: Right L3-L4 and L4-L5 TFESI Surgeon: Carlos Jason Type of Anesthesia: Local (Local only) Specimen's removed: N/A Estimated Blood Loss (mL): N/A Description of Procedure: The patient was admitted to the preoperative area. Vital signs were checked and the patient was moved to the procedure area and placed in the prone position. Standard monitors were applied. Sterile prep and drape was performed in a regular manner. Using fluoroscopic guidance, the required levels were identified under AP and oblique views. Local anesthesia was administered using 25g needle using Lidocaine 0.5% to anesthetize the skin and subcutaneous tissue. A 22-gauge spinal needle was placed under fluoroscopic guidance until reaching the 6 o`clock position of the pedicle above the desired foramen, the needle was gradually walked down to the upper portion of the desired foramen, and the needle was then slightly advanced into the foramen. The position was confirmed with fluoroscopy using AP lateral and oblique views as required. Contrast material, Omnipaque 1cc per each level, was injected under fluoroscopic guidance and showed appropriate epidurogram, epidural spread. Negative blood and CSF aspiration was confirmed. The same procedure was repeated at each desired level. After confirmation of needles position, a mixture of 4 cc Bupivacaine 0.25% and 60 mg of Triamcinilone was injected and divided between the levels. The patient tolerated the procedure well. [place] were removed intact. The patient was cleansed and Band-Aid was applied. Follow up appointment to be scheduled in 2 weeks. He is to return to his inpatient room upon discharge from [facility]. Complications None
--- NOTE | 2024-02-09 17:31 | CASEMGMT ---
Social Work- SW met with pt to discuss preferences at d/c and status change. Pt shared that he feels he has had the best care while at [facility] from housekeeping to surgeon. Pt chose [facility]CU as FOC; SW asked pt to pick alternate choices and completed referral to TCU. Pt states that he and his had been almost 53 years and that he will discuss additional choices with her and share those tomorrow with SW. SW remains available to follow. PETER Donohue
[2024-02-09 17:50] LABS: Bedside Glucose 195 mg/dL (74-106)
[2024-02-10 03:39] VITALS: BP 150/98; PULSE 79; RESP 17; TEMP 36.3; O2SAT 97
[2024-02-10 06:00] VITALS: BMI 37.4
[2024-02-10] MEDS: dexAMETHasone 4 MG/ML Vial IV ×2 (06:30→13:53)
[2024-02-10] MEDS: 0.9% Saline Lock 10 ML Syringe IV ×2 (06:31→13:53)
[2024-02-10] MEDS: Baclofen 10 MG Tablet PO ×2 (06:31→13:53)
[2024-02-10] MEDS: Acetaminophen 500 MG Tablet 1000 MG PO ×2 (06:31→13:53)
[2024-02-10] MEDS: Insulin Lispro 100 UNIT/ML INSULN.PEN SC ×2 (06:32→11:09)
[2024-02-10 06:58] LABS: Bedside Glucose 185 mg/dL (74-106)
[2024-02-10 07:45] VITALS: BP 144/88; PULSE 56; RESP 18; TEMP 36.8; O2SAT 97
[2024-02-10 07:49] VITALS: PULSE 57
[2024-02-10] MEDS: Metoprolol Tartrate 25 MG Tablet PO (07:49)
[2024-02-10] MEDS: Pantoprazole Sodium 40 MG Tablet PO (07:49)
[2024-02-10] MEDS: Senna/Docusate Sodium 1 Tablet 2 TABLET PO (07:49)
[2024-02-10] MEDS: Nortriptyline 25 MG Capsule PO (07:50)
[2024-02-10] MEDS: Nystatin Powder 15gm Bottle 1 APPLIC TOPICAL (07:50)
[2024-02-10 08:19] LABS: Absolute Lymphocyte Count 0.65 X10^3/uL (0.83-4.51); Absolute Neutrophil Count 3.9 X10^3/uL (2.0-7.7); Basophil# 0.02 X10^3/uL; Basophil% 0.4 % (0-1); Hematocrit 39.2 % (40-54); Hemoglobin 13.2 g/dL (13.0-16.5); Lymphocyte # 0.65 X10^3/ul (0.83-4.51); Lymphocyte % 12.8 % (19-41); Mean Corp Hgb Conc 33.7 g/dL (32-36); Mean Corpuscular Hgb 33.7 pg (27.0-32.0); Mean Platelet Vol. 9.6 fl (6.2-12.0); Monocyte# 0.44 X10^3/uL; Monocyte% 8.7 % (0-10); NRBC Flagged by Analyzer 0 % (0-5); Neutrophil # 3.87 X10^3/uL (2.7-7.7); Neutrophil % 76.3 % (47-70); Platelet Count 183 K/mm3 (150-450); RBC Distribution Width CV 14.2 % (11.6-14.6); RBC Distribution Width SD 50.9 fl (35.1-43.9); Red Blood Count 3.92 M/mm3 (4.6-6.2); White Blood Count 5.1 K/mm3 (4.4-11.0)
[2024-02-10 08:50] LABS: Anion Gap 6 (5-15); BUN 33 mg/dL (7-18); BUN/Creat Ratio 33.8 RATIO (10-20); Calcium,Total 9.8 mg/dL (8.5-10.1); Chloride 103 mmol/L (98-107); Creatinine, Serum 0.98 mg/dL (0.70-1.30); EST Glomerular Filtration Rate 78 mL/min (>60); Est Glom Filt Rate - Afr Amer 94 mL/min (>60); Estimated Creatinine Clearance 65.08 ml/min; Glucose 180 mg/dL (74-106); Potassium 5.3 mmol/L (3.5-5.1); Sodium Level 135 mmol/L (136-145)
--- NOTE | 2024-02-10 09:29 | CASEMGMT ---
Addendum entered by Kristi Siddiqui 02/10/24 15:15: RN EMILY made aware that pt wants to dc home. RN EMILY into pt room, pt sitting up in chair with at bedside. Pt states he does indeed want to go home and that he still would like [facility]. ZURDO Munoz at [facility], pt accepted. Plan for pt to be seen Wednesday or Wednesday. Pt updated and placed on dc instructions at this time. Original Note: ZURDO Munoz at [facility], made aware plan is for SNF and to cancel referral.
--- NOTE | 2024-02-10 11:27 | DCINST_ITS ---
Discharge Instructions Diet Discharge Diet: Low fat / Low cholesterol, 1800 Calorie Control Diet and 2000 mg Sodium Diet Activity Discharge Activity: Return to Normal Activity Weight Bearing Status: Weight bearing as tolerated Dressing / Incision Call your doctor if you observe: Fever of 101 or Higher, Coldness, Increased Pain, Numbness or Tingling, Change in Color, Inability to urinate, Inability to have a bowel movement, Shortness of breath, Dizziness, Fainting spells, Swelling in the ankles, Chest pain, Prolonged hiccupping, Increased palpitations (irregular heartbeat) and Calf discomfort Follow Up Care When: IN 2 WEEKS Test Results: Test results from this visit will be discussed in further detail at your follow- up appointment, if applicable. Discharge Plan Admission Admit Date/Time: 02/09/24 12:57 Primary Reason for Your Visit: Acute on chronic back pain, right hip and knee arthritis. Attending Provider: Carlos Hubbard Primary Care Provider: Chiki Brooks Consulting Providers: Zabrina Moncada; Mehran Lindsay; Carlos Jason Discharge Orders/Prescriptions Prescriptions: New sennosides-docusate sodium [Stimulant Laxative Plus] 8.6-50 mg Tablet 2 tab PO BID Qty: 0 0RF acetaminophen 500 mg Tablet 1,000 mg PO Q8 Qty: 0 0RF Rx Instructions: Cavf-gal-ukcihlu. 1 g every 8 hourly for 7 days and then change it 1 g Q8 hourly as needed as needed for moderate to severe pain. pantoprazole 40 mg Tablet,Delayed Release (Dr/Ec) 40 mg PO DAILY 30 Days Qty: 30 0RF buprenorphine 5 mcg/hour Patch Weekly 1 patch transdermal Q7D@1000 7 Days Qty: 2 0RF dexamethasone 2 mg tablet See Rx Instructions .Route .COMPLEX Qty: 22 0RF Rx Instructions: 4 mg bid for 3 days, 2 mg bid for 3 days, 1 mg bid for 3 days and then 1 mg once daily for 3 days tizanidine 4 mg tablet 4 mg PO Q8H PRN (Reason: muscle spasticity) Qty: 30 0RF Continued metformin 500 MG tablet 500 mg PO BID nortriptyline 50 mg capsule 50 mg PO QHS multivitamin Tablet 1 tab PO DAILY Referrals / Follow Up: Carlos Jason MD [Med Staff - Active Staff] - Within 1 Week Chiki Brooks MD [Primary Care Provider] - Disposition Disposition (needs filled in before D/C Order can be placed): Home Health Service
[2024-02-10 11:29] LABS: Bedside Glucose 257 mg/dL (74-106)
--- NOTE | 2024-02-10 11:34 | PN.HOSP_ITS ---
Reason for Visit Reason for Visit: Diagnoses Other chronic pain (02/09/24) Unilateral primary osteoarthritis, right knee (02/09/24) Pain in right hip (02/09/24) Other spondylosis with radiculopathy, lumbosacral region (02/09/24) Low back pain (02/09/24) Objective Data Objective Data Vital Signs: Vital Signs Temp Pulse Resp BP Pulse Ox O2 Del Method 98.2 F 57 L 18 144/88 H 97 Room Air 02/10/24 07:45 02/10/24 07:49 02/10/24 07:45 02/10/24 07:45 02/10/24 07:45 02/10/24 07:45 Oxygen Delivery Method Room Air Weight: 233 lb 0.458 oz Body Mass Index (BMI) 37.4 Intake & Output: Intake and Output for Last 24 Hours 02/08/24 02/09/24 02/10/24 23:59 23:59 23:59 Intake Total 990 / 990 1127 / 1127 0 / 0 Output Total 1850 / 1850 900 / 1400 1600 / 1600 Balance -860 / -860 227 / -273 -1600 / -1600 Lab / Micro Data 02/10/24 07:18 02/10/24 07:18 Labs: Laboratory Results - last 24 hr 02/09/24 12:38: POC Glucose 233 H 02/09/24 17:33: POC Glucose 195 H 02/10/24 06:27: POC Glucose 185 H 02/10/24 07:18: WBC 5.1, RBC 3.92 L, Hgb 13.2, Hct 39.2 L, MCV 100.0 H, MCH 33.7 H, MCHC 33.7, RDW Std Deviation 50.9 H, RDW Coeff of Porter 14.2, Plt Count 183, MPV 9.6, Immature Gran % (Auto) 1.800 H, Neut % (Auto) 76.3 H, Lymph % (Auto) 12.8 L, [place] % (Auto) 8.7, Eos % (Auto) 0.0, Baso % (Auto) 0.4, Absolute Neuts (auto) 3.9, Absolute Lymphs (auto) 0.65 L, Nucleated RBC % 0, Sodium 135 L, P otassium 5.3 H, Chloride 103, Carbon Dioxide 26.0, Anion Gap 6, BUN 33 H, Creatinine 0.98, Estim Creat Clear Calc 65.08, Est GFR (MDRD) Af Amer 94, Est GFR (MDRD) Non-Af 78, BUN/Creatinine Ratio 33.8 H, Glucose 180 H, Calcium 9.8 02/10/24 11:07: POC Glucose 257 H Micro: Microbiology 02/05/24 17:36 Urine, Clean Catch Urine Culture - Final Mixed Gram Positive Organisms Radiography Diagnostic Testing: Radiology Impression Lumbar Spine X-Ray 02/09/24 13:36 IMPRESSION: Image guidance for nerve block. Electronically Signed: Nubia Michaud MD at 14:29 EDT Reading Location ID and State: [facility] / [place] Tel , Service support , Physical Exam Narrative Seen and examined. Patient was put on buprenorphine patch by pain management Dr. Jason. He was evaluated yesterday and plan for lumbar spine epidural injection tomorrow AM. Right hip and knee still painful but better than yesterday. Patient is allergic to multiple opioid medications including codeine, hydrocodone and morphine and gabapentin Patient on recliner. Very debilitated. Physical exam General: Alert, Oriented x3, Cooperative. Obesity grade 237.5 kg/m? HEENT: Atraumatic, PERRLA, EOMI, Normocephalic Oral: No Gingival or Mucosal Lesions/ Ulcerations Neck: Supple, No JVD, Negative Carotid Bruits Chest wall/Lungs: Air entry diminished in bilateral lung bases. No crepitation/rhonchi Cardiovascular: Regular rate, Regular Rhythm, Normal S1, Normal S2, No M/G/R Abdomen: Bowel Sounds Present, Soft, Non Tender, Non-Distended : No dysuria. No renal angle tenderness. No suprapubic tenderness. Extremities: No edema, Capillary Refill Less than 3 Seconds Skin: No rashes, No breakdown Musculoskeletal: Severe tenderness present around right hip and knee. Muscle spasm better. K-pad applied. ROM restricted over hip and knee joints because of pain and spasm Neurological: Cranial nerves II-XII grossly intact, DTR 2+/4. No acute focal neurological deficit. Psych/Mental Status: Flat affect Assessment & Plan Assessment/Plan (1) Acute exacerbation of chronic low back pain: PLAN: Plan Acute debility compromising ADL * PT OT eval and treat. * CM assistance appreciated. Given the fact the patient was observation as there is no medical necessity for his admission, he was made aware of this by case management and he informed them that he would not be able to afford it. However, patient was a maximum 2 person assist and would not be able to go home safely. Social work social work working on placement but also looking to get Medicaid. 02/07: Patient had mild benefit with nortriptyline therefore nortriptyline dose increased to 25 twice daily. Started on IV dexamethasone 4 mg every 8 hourly and baclofen as muscle relaxant. Pain management consult requested with Dr. Jason and I called him. 02/08: Patient on baclofen, nortriptyline, Tylenol and dexamethasone. Buprenorphine patch was ordered yesterday by pain management doctor. N.p.o. past midnight today and plan for right sided L3-4 and L4 5 injection. Right knee x-ray shows severe lateral compartment predominant tricompartmental degenerative arthrosis of the knee. I discussed with the patient and nursing staff. 02/09: Patient had TFESI On right side L3-L4 and L4-L5. K5.3. Acute on chronic right hip pain, knee and back pain * lumbar CT negative, pelvic xray, right hip xray negative. Lumbar spine CT shows multilevel disc degeneration and facet arthritis, severe at L5-S1. Patient does not complain of much pain over back. * Right hip x-ray had hip replacement with good alignment. No fracture or dislocation. * supportive mgmt Chronic mild cognitive impairment/early dementia * Personally have not witnessed but was concerned. May have been due to tramadol which has been discontinued. * 02/06: Patient not showing any acute signs of confusion or change in mental status, inattention feature suggestive of acute encephalopathy or delirium Chronic conditions * Type 2 diabetes mellitus-Glucose checks and sliding scale insulin * History of heart failure preserved ejection fraction chronic/moderate pulmonary hypertension-Last echo in 2019 with EF 55, mild global hypokinesis of left ventricle, unable to assess diastolic dysfunction. Compensated. * Thrombocytopenia-Mild, has had intermittent bouts of thrombocytopenia in the past of unclear etiology-Repeat in the a.m. * Recent shingles outbreak Affecting left upper forehead and eye which started 3 weeks ago-Lesions no longer open-Has received prednisone on outpatient basis, has some postherpetic neuralgia-Supportive care, pain * WANDA-Had been following with Dr. Dillard in pulmonology clinic and supposed to be using CPAP-Last documented settings 06/06/2020 with 9 cm H2O with intermittent compliance * Hx afib-Filling metoprolol on outpatient basis per external fill hx but not presently on anticoagulation-Given fall today would not resume presently either way-If no contraindications may benefit from resumption on outpatient basis if benefits outweigh risk VTE prophylaxis: enoxparin Disposition: Patient require [facility] facility. He does not have the financial resources to pay for a SNF so we are trying to get him Medicaid. Discussed with the patient's at bedside.
--- NOTE | 2024-02-10 14:01 | CASEMGMT ---
Social Work- SW met with pt and who state that pt is going to go home with [facility], as they feel that he has improved enough to safely do so. RNCM advised. PETER Donohue
[2024-02-10 14:16] VITALS: BP 122/69; PULSE 73; RESP 18; TEMP 36.4; O2SAT 97
--- NOTE | 2024-02-10 14:38 | DS.PCM_ITS ---
Providers Date of Admission: 02/09/24 Date of Discharge: 02/10/24 Primary Care Physician: Dr. Chiki Brooks MD Consultations 02/08/24 15:03 Consult: Pain Management Routine Consulting Provider: Carlos Jason Reason for Consult: severe right hip pain, allergic to opoids EMERGENT Consult: No MD Notified: Yes Date Notified: 02/08/24 Time Notified: 15:03 Method of Notification: Verbal Reason For Visit: INTRACTABLE PAIN, INABILITY TO STAND Diagnosis Discharge Diagnosis (1) Acute exacerbation of chronic low back pain: Status: Acute Code(s): M54.5 - Low back pain; G89.29 - Other chronic pain Plan Acute debility compromising ADL * PT OT eval and treat. * CM assistance appreciated. Given the fact the patient was observation as there is no medical necessity for his admission, he was made aware of this by case management and he informed them that he would not be able to afford it. However, patient was a maximum 2 person assist and would not be able to go home safely. Social work social work working on placement but also looking to get Medicaid. 02/07: Patient had mild benefit with nortriptyline therefore nortriptyline dose increased to 25 twice daily. Started on IV dexamethasone 4 mg every 8 hourly and baclofen as muscle relaxant. Pain management consult requested with Dr. Jason and I called him. 02/08: Patient on baclofen, nortriptyline, Tylenol and dexamethasone. Buprenorphine patch was ordered yesterday by pain management doctor. N.p.o. past midnight today and plan for right sided L3-4 and L4 5 injection. Right knee x-ray shows severe lateral compartment predominant tricompartmental degenerative arthrosis of the knee. I discussed with the patient and nursing staff. 02/09: Patient had TFESI On right side L3-L4 and L4-L5. K5.3. Patient feels much improvement on pain control. He wants to go home and declined for snf. Being discharged for home with home health care. He walked with the physical therapist and is very happy that his pain is controlled. Discussed with the pain management Dr. Carlos Jason and give prescription for buprenorphine patch. Patient discharged on tapering dose of dexamethasone, prednisone and Tylenol 1 g every 8 hourly. Acute on chronic right hip pain, knee and back pain * lumbar CT negative, pelvic xray, right hip xray negative. Lumbar spine CT shows multilevel disc degeneration and facet arthritis, severe at L5-S1. Patient does not complain of much pain over back. * Right hip x-ray had hip replacement with good alignment. No fracture or dislocation. * supportive mgmt Chronic mild cognitive impairment/early dementia * Personally have not witnessed but was concerned. May have been due to tramadol which has been discontinued. * 02/06: Patient not showing any acute signs of confusion or change in mental status, inattention feature suggestive of acute encephalopathy or delirium Chronic conditions * Type 2 diabetes mellitus-Glucose checks and sliding scale insulin * History of heart failure preserved ejection fraction chronic/moderate pulmonary hypertension-Last echo in 2019 with EF 55, mild global hypokinesis of left ventricle, unable to assess diastolic dysfunction. Compensated. * Thrombocytopenia-Mild, has had intermittent bouts of thrombocytopenia in the past of unclear etiology-Repeat in the a.m. * Recent shingles outbreak Affecting left upper forehead and eye which started 3 weeks ago-Lesions no longer open-Has received prednisone on outpatient basis, has some postherpetic neuralgia-Supportive care, pain * WANDA-Had been following with Dr. Dillard in pulmonology clinic and supposed to be using CPAP-Last documented settings 06/06/2020 with 9 cm H2O with intermittent compliance * Hx afib-Filling metoprolol on outpatient basis per external fill hx but not presently on anticoagulation-Given fall today would not resume presently either way-If no contraindications may benefit from resumption on outpatient basis if benefits outweigh risk VTE prophylaxis: enoxparin Disposition: Patient require residential facility. He does not have the financial resources to pay for a SNF so we are trying to get him Medicaid. Discussed with the patient's at bedside. Medications at Discharge Home Medications metformin 500 mg tablet 500 mg PO BID diabetes 05/20/18 multivitamin 1 tab PO DAILY 02/03/24 nortriptyline 50 mg capsule 50 mg PO QHS 02/03/24 acetaminophen 500 mg tablet 1,000 mg (2 x 500 mg) PO Q8 #0 tabs 02/10/24 dexamethasone 2 mg tablet See Rx Instructions .Route .COMPLEX #22 tabs 02/10/24 pantoprazole 40 mg tablet,delayed release 40 mg PO DAILY 30 days #30 tabs 02/10/24 sennosides 8.6 mg-docusate sodium 50 mg tablet (Stimulant Laxative Plus) 2 tab PO BID #0 tabs 02/10/24 tizanidine 4 mg tablet 4 mg PO Q8H PRN muscle spasticity #30 tabs 02/10/24 Physical Exam Narrative Seen and examined. Patient pain is well-controlled he walked with the physical therapy outside the room. Had pain injection yesterday on 02/09/2024 Patient is allergic to multiple opioid medications including codeine, hydrocodone and morphine and gabapentin Physical exam General: Alert, Oriented x3, Cooperative. Obesity grade 237.5 kg/m? HEENT: Atraumatic, PERRLA, EOMI, Normocephalic Oral: No Gingival or Mucosal Lesions/ Ulcerations Neck: Supple, No JVD, Negative Carotid Bruits Chest wall/Lungs: Air entry diminished in bilateral lung bases. No crepitation/rhonchi Cardiovascular: Regular rate, Regular Rhythm, Normal S1, Normal S2, No M/G/R Abdomen: Bowel Sounds Present, Soft, Non Tender, Non-Distended : No dysuria. No renal angle tenderness. No suprapubic tenderness. Extremities: No edema, Capillary Refill Less than 3 Seconds Skin: No rashes, No breakdown Musculoskeletal: Mild acceptable tenderness over right hip and knee. Pain is well-controlled. ROM restricted over hip and knee joints Neurological: Cranial nerves II-XII grossly intact, DTR 2+/4. No acute focal neurological deficit. Psych/Mental Status: Flat affect Weight / BMI Weight Weight: 233 lb 0.458 oz Body Mass Index (BMI) 37.4 ABG / Lab / Microbiology Data 02/10/24 07:18 02/10/24 07:18 Laboratory: Laboratory Results - last 24 hr 02/09/24 17:33: POC Glucose 195 H 02/10/24 06:27: POC Glucose 185 H 02/10/24 07:18: WBC 5.1, RBC 3.92 L, Hgb 13.2, Hct 39.2 L, MCV 100.0 H, MCH 33.7 H, MCHC 33.7, RDW Std Deviation 50.9 H, RDW Coeff of [place] 14.2, Plt Count 183, MPV 9.6, Immature Gran % (Auto) 1.800 H, Neut % (Auto) 76.3 H, Lymph % (Auto) 12.8 L, [place] % (Auto) 8.7, Eos % (Auto) 0.0, Baso % (Auto) 0.4, Absolute Neuts (auto) 3.9, Absolute Lymphs (auto) 0.65 L, Nucleated RBC % 0, Sodium 135 L, P otassium 5.3 H, Chloride 103, Carbon Dioxide 26.0, Anion Gap 6, BUN 33 H, Creatinine 0.98, Estim Creat Clear Calc 65.08, Est GFR (MDRD) Af Amer 94, Est GFR (MDRD) Non-Af 78, BUN/Creatinine Ratio 33.8 H, Glucose 180 H, Calcium 9.8 02/10/24 11:07: POC Glucose 257 H Microbiology: Microbiology 02/05/24 17:36 Urine, Clean Catch Urine Culture - Final Mixed Gram Positive Organisms D/C Instructions Discharge Diet: Low fat / Low cholesterol, 1800 Calorie Control Diet and 2000 mg Sodium Diet Weight Bearing Status: Weight bearing as tolerated Call your doctor if you observe: Fever of 101 or Higher, Coldness, Increased Pain, Numbness or Tingling, Change in Color, Inability to urinate, Inability to have a bowel movement, Shortness of breath, Dizziness, Fainting spells, Swelling in the ankles, Chest pain, Prolonged hiccupping, Increased palpitations (irregular heartbeat) and Calf discomfort When: IN 2 WEEKS Meaningful Use Info Meaningful Use Meaningful Use Diagnoses (Choose all that apply): None applicable Ischemic Stroke Statin Dosing Therapy Reference: STATIN DOSE THERAPY REFERENCE: * Patients > 75 years receive moderate or high dose statin therapy. * Patients 75 years or YOUNGER should receive HIGH intensity statin dose unless contraindicated. You will be required to document reason for non-treatment if statin daily dose does not meet guidelines. HIGH DOSE STATIN THERAPY DAILY Atorvastatin > than or = to 40 mg Rosuvastatin > than or = to 20 mg Amlodipine + Atorvastatin > than or = to 2.5/40 mg Ezetimibe + Simvastatin 10/80 mg Simvastatin 80mg Discharge Plan Admission Admit Date/Time: 02/09/24 12:57 Primary Reason for Your Visit: Acute on chronic back pain, right hip and knee arthritis. Attending Provider: Carlos Hubbard Primary Care Provider: Chiki Brooks Consulting Providers: Zabrina Moncada; Mehran Lindsay; Carlos Jason Discharge Orders/Prescriptions Prescriptions: New sennosides-docusate sodium [Stimulant Laxative Plus] 8.6-50 mg Tablet 2 tab PO BID Qty: 0 0RF acetaminophen 500 mg Tablet 1,000 mg PO Q8 Qty: 0 0RF Rx Instructions: Pblq-ein-qogdhfb. 1 g every 8 hourly for 7 days and then change it 1 g Q8 hourly as needed as needed for moderate to severe pain. pantoprazole 40 mg Tablet,Delayed Release (Dr/Ec) 40 mg PO DAILY 30 Days Qty: 30 0RF dexamethasone 2 mg tablet See Rx Instructions .Route .COMPLEX Qty: 22 0RF Rx Instructions: 4 mg bid for 3 days, 2 mg bid for 3 days, 1 mg bid for 3 days and then 1 mg once daily for 3 days tizanidine 4 mg tablet 4 mg PO Q8H PRN (Reason: muscle spasticity) Qty: 30 0RF Continued metformin 500 MG tablet 500 mg PO BID nortriptyline 50 mg capsule 50 mg PO QHS multivitamin Tablet 1 tab PO DAILY Referrals / Follow Up: Carlos Jason MD [Med Staff - Active Staff] - Within 1 Week Chiki Brooks MD [Primary Care Provider] - Disposition Disposition (needs filled in before D/C Order can be placed): Home Health Service Charges/Coding Visit Charges Inpatient E&M: 97726 Disch Hosp >30min
== END 2024-02-10 15:48 | disposition home health service (06) | DRG 552 ==
LOC: ED 15:17 → MS3 16:47
PROVIDERS: Anesthesiology; Admitting Provider Internal Medicine; Emergency Provider Emergency Medicine; PCP Family Medicine; Visit Provider Internal Medicine
PROC: 3E0S3BZ Introduction of Anesthetic Agent into Epidural Space, Percutaneous Approach (ICD-10-PCS; CPT 62322; principal; 2024-02-09 13:25)
DX: M47.27 Other spondylosis with radiculopathy, lumbosacral region (principal); G93.40 Encephalopathy, unspecified; F03.A2 Unspecified dementia, mild, with psychotic disturbance; B02.29 Other postherpetic nervous system involvement; I50.32 Chronic diastolic (congestive) heart failure; I27.20 Pulmonary hypertension, unspecified; D69.6 Thrombocytopenia, unspecified; E11.9 Type 2 diabetes mellitus without complications; M25.551 Pain in right hip; G47.33 Obstructive sleep apnea (adult) (pediatric); M17.11 Unilateral primary osteoarthritis, right knee; M48.061 Spinal stenosis, lumbar region without neurogenic claudication; M51.36 Other intervertebral disc degeneration, lumbar region; R26.2 Difficulty in walking, not elsewhere classified; M46.1 Sacroiliitis, not elsewhere classified; R53.81 Other malaise; G89.29 Other chronic pain; Z96.643 Presence of artificial hip joint, bilateral; Z88.5 Allergy status to narcotic agent; Z79.84 Long term (current) use of oral hypoglycemic drugs; Z79.899 Other long term (current) drug therapy; Z87.891 Personal history of nicotine dependence
CPT/HCPCS: 36415; 64483; 72100; 72131; 72170; 73552; 73562; 80048; 80053; 81001; 82306; 82607; 82962; 84443; 85025; 87086; 87088; 90715; 97162; 97166; 97530; 97535; 97802; 99283; J7120; A4216

== ENCOUNTER → 2024-04-24 | Outpatient (CLI) | payer MEDICARE, OTHER, SELFPAY ==
[2024-04-24 15:59] LABS: ALB/GLOB Ratio 1.2 RATIO (0.9-2.4); AST(SGOT) 11 U/L (15-37); Alanine Aminotransfer ALT/SGPT 19 U/L (16-61); Albumin, Serum 3.4 g/dL (3.2-5.0); Alkaline Phosphatase 52 U/L (45-117); Anion Gap 4 (5-15); BUN 14 mg/dL (7-18); BUN/Creat Ratio 19.3 RATIO (10-20); Calcium,Total 8.9 mg/dL (8.5-10.1); Chloride 106 mmol/L (98-107); Cholesterol 150 mg/dL (200); Creatinine, Serum 0.73 mg/dL (0.70-1.30); EST Glomerular Filtration Rate 109 mL/min (>60); Est Glom Filt Rate - Afr Amer 132 mL/min (>60); Globulin 2.9 g/dL (2.2-4.2); Glucose 182 mg/dL (74-106); High Density Lipoprotein 49 mg/dL; Protein, Total 6.3 g/dL (6.4-8.2); Sodium Level 139 mmol/L (136-145); Triglycerides 129 mg/dL; Very Low Density Lipoprotein 26 mg/dL (5-40)
== END | disposition home or self-care (01) ==
PROVIDERS: PCP Family Medicine; Visit Provider Family Medicine
DX: E11.9 Type 2 diabetes mellitus without complications (principal)
CPT/HCPCS: 36415; 80053; 80061

== ENCOUNTER 2024-07-20 16:05 | Outpatient (CLI) | payer MEDICARE, OTHER, SELFPAY ==
[2024-07-20 17:36] LABS: Absolute Lymphocyte Count 0.52 X10^3/uL (0.83-4.51); Absolute Neutrophil Count 3.2 X10^3/uL (2.0-7.7); Basophil# 0.03 X10^3/uL; Basophil% 0.7 % (0-1); Eosinophil# 0.24 X10^3/uL; Eosinophils% 5.4 % (0-5); Hematocrit 34.3 % (40-54); Hemoglobin 10.8 g/dL (13.0-16.5); Lymphocyte # 0.52 X10^3/ul (0.83-4.51); Lymphocyte % 11.6 % (19-41); Mean Corp Hgb Conc 31.5 g/dL (32-36); Mean Corpuscular Hgb 33.5 pg (27.0-32.0); Mean Corpuscular Volume 106.5 fL (80-94); Mean Platelet Vol. 10.3 fl (6.2-12.0); Monocyte# 0.46 X10^3/uL; Monocyte% 10.3 % (0-10); NRBC Flagged by Analyzer 0 % (0-5); Neutrophil % 71.3 % (47-70); POSITIVE DIFFERENTIAL YES; Platelet Count 150 K/mm3 (150-450); RBC Distribution Width CV 13.7 % (11.6-14.6); RBC Distribution Width SD 53.6 fl (35.1-43.9); Red Blood Count 3.22 M/mm3 (4.6-6.2); White Blood Count 4.5 K/mm3 (4.4-11.0)
[2024-07-20 17:43] LABS: Anion Gap 5 (5-15); BUN 25 mg/dL (7-18); BUN/Creat Ratio 27.4 RATIO (10-20); Chloride 108 mmol/L (98-107); Creatinine, Serum 0.91 mg/dL (0.70-1.30); EST Glomerular Filtration Rate 84 mL/min (>60); Est Glom Filt Rate - Afr Amer 102 mL/min (>60); Glucose 145 mg/dL (74-106); Potassium 4.9 mmol/L (3.5-5.1); Sodium Level 140 mmol/L (136-145)
[2024-07-20 17:51] LABS: BNP,B-Type NATRIURETIC PEPTIDE 388.7 pg/mL (0-100)
== END 2024-07-20 23:59 | disposition home or self-care (01) ==
LOC: MFPLAB 16:06
PROVIDERS: PCP Family Medicine; Referring Provider Family Medicine; Visit Provider Family Medicine
DX: R60.0 Localized edema (principal); R06.02 Shortness of breath
CPT/HCPCS: 36415; 80048; 83880; 85025

== ENCOUNTER → 2024-10-23 | Outpatient (CLI) | payer MEDICARE, OTHER, SELFPAY ==
[2024-10-23 13:37] LABS: Microalbumin:Creatinine Ratio 1817.2 mg/g CRE
[2024-10-23 14:40] LABS: ALB/GLOB Ratio 1.5 RATIO (0.9-2.4); AST(SGOT) 18 U/L (<=37); Alanine Aminotransfer ALT/SGPT 11 U/L (<=46); Alkaline Phosphatase 75 U/L (40-129); Anion Gap 10 (5-15); BUN 17 mg/dL (4-19); BUN/Creat Ratio 23.2 RATIO (10-20); Calcium,Total 9.3 mg/dL (7.6-11.0); Carbon Dioxide 25.6 mmol/L (21.0-32.0); Chloride 103 mmol/L (98-108); Cholesterol 149 mg/dL (<=200); Creatinine, Serum 0.74 mg/dL (0.70-1.20); EST Glomerular Filtration Rate 89 (>60); Globulin 2.7 g/dL (2.2-4.2); Glucose 174 mg/dL (70-99); High Density Lipoprotein 40 mg/dL; Low Density Lipoprotein Calc. 90 mg/dL; Potassium 4.4 mmol/L (3.3-5.1); Protein, Total 6.7 g/dL (5.9-8.4); Sodium Level 139 mmol/L (133-145); Total Bilirubin 0.66 mg/dL (0.00-1.30); Triglycerides 97 mg/dL; Very Low Density Lipoprotein 19 mg/dL (5-40); cholesterol:hdl ratio screen 3.73
== END | disposition home or self-care (01) ==
LOC: MFPLAB 10:52
PROVIDERS: PCP Family Medicine; Referring Provider Family Medicine; Visit Provider Family Medicine
DX: E11.9 Type 2 diabetes mellitus without complications (principal)
CPT/HCPCS: 36415; 80053; 80061; 82043; 82570

== ENCOUNTER 2025-02-08 12:00 | Outpatient (RCR) | payer MEDICARE, OTHER, SELFPAY ==
--- NOTE | 2025-01-09 12:19 | HP.PTEVAL_ITS ---
Patient's Visit Information Visit Information Visit Information: JOSE ANGEL BLANCHARD is a 84 year old M referred to Physical Therapy by Dr. Alvaro Clayton MD with a diagnosis of WEAKNESS. Date of Evaluation: 01/09/25 Physical Therapist: Gino Rodriguez PT, Cert MDT, OCS Visit Plan Frequency: 2-3x /Week Duration: 4-6 Weeks Plan: *WILL NEED TO USES TRANSFERS LIFT* *MARGE IN WATER WITH PATIENT* PATIENT USES W/C COMMUNITY AMBULATES WITH FWW SHORT DISTANCES PT INTERVENTIONS AQUATIC THERAPY ROM KNEE ,STRENGTHENING QUADS/HAMS/HIP ,FLEXABILITY ,FUNCTIONAL STRENGTHENING AND ENDURANCE PROGRAM Subjective Subjective: This 84 y/o male presents to physical therapy with weakness. 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 Had x-rays showed DJD severe. DR wanted to try Aquatics PT due to candidate for TKA . Patient has had right ~ 2 years progressively worse . Pain located global knee described as ache. Tried cortisone in OCTOBER.No medication for pain. Patient uses manual w/c in community . Patient uses FWW. Spouse assist with bathing dressing. Spouse does all cooking and cleaning. Patient lives in 1 story home with ramp. Patient sleeps in recliner unable to lay flat.Patient has lift chair. Patient aggravating factors getting up from chair ,standing /walking. Unable to squat and do stairs. Pain affects sleeping. Patient denies paresthesia/tingling .Pateint condition affects QOL and function. Patient is not active at home. SOCIAL: VOCATION: retired Pain Right Knee: Pain Intensity (Out of 10): 3 Pain Intensity Range: 3 and 10 Objective Objective: POSTURE: mod forward posture ,hips/knees flexed GAIT: reciprocal pattern forward trunk hips/knees flexed slow giles decrease step length CGA TRANSFERS: mod assist from w/c with sit-stand NEURO: denies paresthesia/tingling PALAPTION: tender medial/lateral joint line EDEMA: 1+ AROM: supine knee flexion 13 -92 degrees right ,left 12-96 degrees MMT:( peak force) quads 10.8 ,hamstrings 11.2 ,hip flexion 21.1 Balance/Special Test Scores Oswestry Low Back Score: 32 Goals Goal 1:: Patient to be Aquatic Therapy program Goal Time Frame: 4-6 Weeks Goal 2:: Patient to improve AROM knee flexion by 5-10 degrees to improve gait Goal Time Frame: 4-6 Weeks Goal 3:: Patient to improve peak force quads/ham 5-10# to improve gait Goal Time Frame: 4-6 Weeks Goal 4:: Patient to improve transfers sit-stand with CGA/SBA Goal Time Frame: 4-6 Weeks Goal 5:: Patient to ambulate with supervision/SBA 50 ft with improved gait pattern Goal Time Frame: 4-6 Weeks Rehabilitation Potential Physical Therapy Diagnosis: This patient has right knee pain needs TKA right thus has weakness in legs ,pain ,decrease balance ,gait impairs ADLS and self hyegine thus benefit from skilled PT Rehabilitation Potential: Fair Anticipated Interventions Patient/Client Instruction: Educate patient on: Condition and Plan of Care For the Purpose of:: To decrease pain, To increase ROM, To improve muscle performance and motor function, To improve ability to perform ADL's, To increase tolerance to activity/condition/position, To improve performance and indepen dence with ADL's, To improve ability of physical actions for home/community/work/leisure, To improve gait and locomotor functions, To improve health of tissue, To increase flexibility/ROM, To improve endurance and To improve balance Therapeutic Exercise to Include: Strength training, Endurance training, Balance training, Gait and locomotor training, "In an aquatic setting", Passive ROM and Active ROM Comment: QUADS/HAMS/HIP For the Purpose of:: To decrease pain, To increase ROM, To improve muscle performance and motor function, To improve ability to perform ADL's, To increase tolerance to activity/condition/position, To improve ability of physical actions for home/community/work/leisure, To improve gait and locomotor functions, To increase flexibility/ROM, To improve endurance, To improve balance and To improve tolerance to ADL's Text: Thank you for the opportunity to evaluate your patient. For Medicare and Medicare HMO plans, please review the plan of care and approve it. It will need to be FAXED BACK to us at [phone] for Medicare purposes. For Medicare only, by signing this I certify the plan of care. Please let me know if there are questions or concerns regarding this plan of care. Physician Signature: Date:
--- NOTE | 2025-02-08 12:25 | HP.PTDCSUM ---
Discharge Summary D/C summary: It has been my pleasure to treat JOSE ANGEL BLANCHARD referred by Dr. Alvaro Clayton MD, with the diagnosis of WEAKNESS for a total of 9 visit(s). Discharge Date: 02/08/25 Please see the following information for a summary of their discharge status. Subjective Subjective: PT in water has helped Patient able to get up better and walk Pain Right Knee: Pain Intensity (Out of 10): 8 Overall Improvement % Improvement: 30 Objective Objective/Function: POSTURE: mod forward posture ,hips/knees flexed GAIT: reciprocal pattern forward trunk hips/knees flexed slow giles decrease step length CGA TRANSFERS: mIN assist from w/c with sit-stand NEURO: denies paresthesia/tingling PALAPTION: tender medial/lateral joint line EDEMA: 1+ AROM: supine knee flexion 13 -92 degrees right ,left 12-96 degrees MMT:( peak force) quads 21.2 ,hamstrings 21.7 ,hip flexion2 0.1 Goals Goal 1:: Patient to be Aquatic Therapy program Goal Progress: Progressing Goal 2:: Patient to improve AROM knee flexion by 5-10 degrees to improve gait Goal Progress: Goal Met Goal 3:: Patient to improve peak force quads/ham 5-10# to improve gait Goal Progress: Progressing Goal 4:: Patient to improve transfers sit-stand with CGA/SBA Goal Progress: Progressing Goal 5:: Patient to ambulate with supervision/SBA 50 ft with improved gait pattern Goal Progress: Progressing Plan Plan: D/C TO HEP D/C Information Discharge Comments: HEP d/c sentence: If there are questions or concerns regarding this patient's physical therapy, please feel free to call me at [phone]. Thank you for the referral of this patient. Sincerely, Gino Rodriguez, PT, Cert MDT, OCS Balance/Gait/Functional tests Balance/Special Test Scores Oswestry Low Back Score: 32 Improvement % Improvement: 30
== END 2025-02-08 19:00 | disposition home or self-care (01) ==
LOC: PT 12:00
PROVIDERS: PCP Family Medicine; Referring Provider Specialist; Visit Provider Specialist
DX: R53.1 Weakness (principal)
CPT/HCPCS: 97113; 97162; 97530

== ENCOUNTER → 2025-04-23 | Outpatient (CLI) | payer MEDICARE, OTHER, SELFPAY ==
[2025-04-23 13:01] LABS: Anion Gap 11 (5-15); BUN 23 mg/dL (4-19); BUN/Creat Ratio 26.0 RATIO (10-20); Calcium,Total 9.3 mg/dL (7.6-11.0); Carbon Dioxide 23.2 mmol/L (21.0-32.0); Chloride 105 mmol/L (98-108); Glucose 179 mg/dL (70-99); Potassium 4.8 mmol/L (3.3-5.1)
== END | disposition home or self-care (01) ==
LOC: MFPLAB 11:07
PROVIDERS: PCP Family Medicine; Visit Provider Family Medicine
DX: E11.9 Type 2 diabetes mellitus without complications (principal)
CPT/HCPCS: 36415; 80048